=== PATIENT | male | born 1965 | race Caucasian/White ===

== ENCOUNTER → 2017-01-20 | Outpatient (CLI) | payer OTHER ==
[~2017-01-20] MED LIST: ASPI81TA28 PO; CRG25 PO; FURO-85 PO; LSN5 PO; MAGN250T9 PO; POTA99TA PO
[2017-01-20 10:30] LABS: BASO % 0.8 %; BASO ABS # 0.06 K/uL (0-0.2); COMPLETE YES; EOS % 1.6 %; HEMATOCRIT 43.2 % (42-52); IG% 0.5 %; LYMPH % 33.4 %; LYMPH ABS # 2.45 K/uL (1.2-3.4); MEAN CELL VOLUME 98.4 fL (80-100); MEAN CORPUSCULAR HEMOGLOBIN 34.9 pg (25-34); MEAN CORPUSCULAR HGB CONC 35.4 g/dl (32-36); MEAN PLATELET VOLUME 9.6 fL (7.4-10.4); NEUT % 53.7 %; PLATELET COUNT 175 K/uL (130-400); RED BLOOD COUNT 4.39 M/uL (4.7-6.1); WHITE BLOOD COUNT 7.33 K/uL (4.8-10.8)
[2017-01-20 10:37] LABS: BLOOD UREA NITROGEN 8 mg/dl (7-18); BUN/CREATININE RATIO 10.3 (10-20); CARBON DIOXIDE 27 mmol/L (21-32); CHLORIDE 103 mmol/L (98-107); CHOLESTEROL 200 mg/dl (0-200); CREATININE 0.79 mg/dl (0.60-1.40); GLUCOSE 99 mg/dl (70-99); SODIUM 135 mmol/L (136-145); TRIGLYCERIDES 98 mg/dl (0-150); VERY LOW DENSITY LIPOPROT CALC 20 mg/dl
[2017-01-20 10:40] LABS: HDL CHOLESTEROL 66 mg/dl; LDL CHOLESTEROL CALCULATED 114 mg/dl
== END | disposition home or self-care (01) ==
LOC: C.LAB1850 09:19
PROVIDERS: ATTEND Physician Assistant
DX: I50.22 Chronic systolic (congestive) heart failure (principal); I42.9 Cardiomyopathy, unspecified

== ENCOUNTER 2019-05-28 06:58 | Observation (INO) ==
[2019-05-28] MEDS ORDERED: ALBUT/IPRATROP 3MG/0.5MG NEB 3 ML VIAL INH STA (07:08)
[2019-05-28] MEDS ORDERED: FUROSEMIDE 40 MG/4 ML VIAL IV STA (07:08)
--- NOTE | 2019-05-28 07:10 | Emergency Department Note ---
Entered by [id number] acting as a scribe for Carlito Kat DO History of Present Illness General Chief complaint: Shortness of Breath/Dyspnea Stated complaint: breathing diff. Time Seen by Provider: 05/28/19 07:00 Source: patient History of Present Illness Onset (ago): hour(s) (6) Location: chest Pain Consistency: + intermittent Quality: + other (shortness of breath) Exacerbated By: + other (lying down) The patient is a 53 year old male who presents to the Emergency Room with complaints of intermittent shortness of breath beginning 6 hours ago. The patie nt reports the shortness of breath worsening whenever he lies down. The patient reports similar symptoms a few years ago. He notes a history of congestive heart failure and a MD. He notes he is a current smoker. Home Medications Home Medications Medication Instructions Recorded Confirmed Type aspirin 81 mg tablet,delayed 81 mg PO DAILY 01/24/19 05/28/19 History release carvedilol 25 mg tablet 25 mg PO BID 01/24/19 05/28/19 History diphenhydramine HCl 25 mg capsule 25 mg PO Q8H PRN 01/24/19 05/28/19 History furosemide 40 mg tablet 40 mg PO DAILY 01/24/19 05/28/19 History lisinopril 40 mg tablet 40 mg PO DAILY #90 tab 01/24/19 05/28/19 Rx magnesium 250 mg tablet 250 mg PO DAILY 01/24/19 05/28/19 History potassium gluconate 595 mg (99 mg) 595 mg PO DAILY tab 01/24/19 05/28/19 History tablet Allergies Allergy/AdvReac Type Severity Reaction Status Date / Time No Known Allergies Allergy Unverified 05/28/19 07:46 Past Med/Surg History Medical History Acute systolic congestive heart failure, NYHA class 4 CHF (congestive heart failure) (Chronic) Heart valve malfunction (Chronic) Hypotension Surgical History No pertinent past surgical history Family History Other No pertinent family history Social History Preferred Language: Azeri Communication Ability: Effective Inhalation Therapy Aides Teacher Required: No Beliefs That Will Affect Care: None Current Living Situation: Alone Other Information That Helps Us Care for You: No Feels Safe at Home: Yes Safety Concerns: Feels Safe At This Time Smoking Status: Current every day smoker Tobacco Type: cigarettes ; Cigarettes Per Day: 20 ; Do You Dip or Chew Tobacco: No ; Hx Alcohol Use: No Hx Substance Use: No Review of Systems See HPI for pertinent positives & negatives. and A total of 10 systems reviewed and were otherwise negative Physical Exam Vital Signs Vital Signs - 24 hr 05/28/19 07:00 05/28/19 07:01 05/28/19 07:13 Temperature 36.5 C Temperature Source Oral Pulse Rate 82 Pulse Rate [Left Finger] Respiratory Rate 20 Respiratory Effort / Characteristics Non-Labored Non-Labored Respiratory Depth Normal Normal Respiratory Pattern Regular Blood Pressure 141/88 H Blood Pressure [Left Arm] Blood Pressure [Right Arm] Blood Pressure Mean 105 Blood Pressure Mean [Left Arm] Blood Pressure Mean [Right Arm] Pulse Oximetry 97 Oxygen Delivery Method Room Air Room Air Room Air Sepsis Recent Fever Within 48 Hours No Sepsis Action Taken by Nursing No Action Required 05/28/19 07:25 05/28/19 08:06 05/28/19 08:29 Temperature Temperature Source Pulse Rate Pulse Rate [Left Finger] 81 82 88 Respiratory Rate 16 18 20 Respiratory Effort / Characteristics Non-Labored Spontaneous Non-Labored Non-Labored Respiratory Depth Normal Normal Respiratory Pattern Blood Pressure Blood Pressure [Left Arm] 141/82 H Blood Pressure [Right Arm] 130/81 Blood Pressure Mean Blood Pressure Mean [Left Arm] 101 Blood Pressure Mean [Right Arm] 97 Pulse Oximetry 99 95 Oxygen Delivery Method Room Air Room Air Room Air Sepsis Recent Fever Within 48 Hours Sepsis Action Taken by Nursing 05/28/19 09:13 Temperature Temperature Source Pulse Rate Pulse Rate [Left Finger] 82 Respiratory Rate 20 Respiratory Effort / Characteristics Non-Labored Respiratory Depth Normal Respiratory Pattern Blood Pressure Blood Pressure [Left Arm] 130/82 Blood Pressure [Right Arm] Blood Pressure Mean Blood Pressure Mean [Left Arm] 98 Blood Pressure Mean [Right Arm] Pulse Oximetry 96 Oxygen Delivery Method Room Air Sepsis Recent Fever Within 48 Hours Sepsis Action Taken by Nursing CONSTITUTIONAL/VITAL SIGNS: Reviewed / noted above. GENERAL: Non-toxic in appearance. INTEGUMENTARY: Warm, dry, and [place]. HEAD: Normocephalic. EYES: without scleral icterus or trauma. ENT/OROPHARYNX: clear and moist. LYMPHADENOPATHY/NECK: Is supple without lymphadenopathy or meningismus. RESPIRATORY: Lungs clear and equal. CARDIOVASCULAR: Regular rate and rhythm. GI/ABDOMEN: Soft and nontender. No organomegaly or pulsatile mass. No rebound or guarding. Normal bowel sounds. EXTREMITIES: Warm and well perfused. BACK: No CVA tenderness. NEUROLOGICAL: Intact without focal deficits. PSYCHIATRIC: normal affect. MUSCULOSKELETAL: Normally developed with good muscle tone. Course Course 0700: Past medical records reviewed. The patient was evaluated in room B12B. A complete history and physical exam was performed. 0830: Upon reevaluation, the patient is resting more comfortably. I discussed findings and results with the patient. He verbalized agreement of the treatment plan. I reviewed the patient's case with Dr. Lozano - [facility] Hospitalist. She will evaluate the patient for further management. Administered Medications Ioversol (Optiray 320 125ml) 120 ml IV ONCE PRN PRN Reason: Interaction Checking Stop: 06/01/19 08:20 Last Admin: 05/28/19 08:22 Dose: 120 ml Documented by: [id number] Discontinued Medications Albuterol (Duoneb) 3 ml INH NOW STA Stop: 05/28/19 07:09 Last Admin: 05/28/19 07:25 Dose: 3 ml Documented by: [id number] Aspirin (Aspirin) 324 mg PO NOW STA Stop: 05/28/19 07:53 Last Admin: 05/28/19 08:04 Dose: 324 mg Documented by: [id number] Enoxaparin Sodium (Lovenox) 70 mg SQ TODAY@0900 ONE Stop: 05/28/19 09:01 Last Admin: 05/28/19 09:14 Dose: 70 mg Documented by: [id number] Furosemide (Lasix) 40 mg IV NOW STA Stop: 05/28/19 07:09 Last Admin: 05/28/19 07:23 Dose: 40 mg Documented by: [id number] Medical Decision Making Differential Diagnosis Differential diagnoses includes but is not limited to pneumonia, bronchitis, COPD/Asthma exacerbation, pneumothorax, pulmonary embolism, congestive heart failure, acute coronary syndrome Medical Records Attestation: I reviewed the patient's medical records. Home Medications Current Medication List: was personally reviewed by me Laboratory Data Attestation: I reviewed the patient's lab results. Result diagrams: 05/28/19 07:15 05/28/19 07:15 Lab Results 05/28/19 05/28/19 05/28/19 Range/Units 07:15 07:15 07:15 WBC 8.49 (4.8-10.8) K/uL RBC 4.74 (4.7-6.1) M/uL Hgb 17.0 (14.0-18.0) g/dL Hct 47.1 (42-52) % MCV 99.4 (80-100) fL MCH 35.9 H (25-34) pg MCHC 36.1 H (32-36) g/dL RDW Std Deviation 46.8 H (36.4-46.3) fL RDW Coeff of Britney 12.9 (11.5-14.5) % Plt Count 176 (130-400) K/uL MPV 9.4 (7.4-10.4) fL Immature Gran % (Auto) 0.5 % Neut % (Auto) 73.0 % Lymph % (Auto) 16.5 % [place] % (Auto) 8.1 % Eos % (Auto) 1.1 % Baso % (Auto) 0.8 % Immature Gran # (Auto) 0.04 H (0.00-0.02) K/uL Neut # (Auto) 6.20 (1.4-6.5) K/uL Lymph # (Auto) 1.40 (1.2-3.4) K/uL [place] # (Auto) 0.69 H (0.11-0.59) K/uL Eos # (Auto) 0.09 (0-0.5) K/uL Baso # (Auto) 0.07 (0-0.2) K/uL PT 10.3 (9.0-12.0) Seconds INR 1.0 (0.9-1.1) APTT 25.2 (21.0-31.0) Seconds PTT Ratio 0.9 D-Dimer 940 H* (0-500) ug/L FEU Sodium 135 L (136-145) mmol/L Potassium 4.7 (3.5-5.1) mmol/L Chloride 104 (98-107) mmol/L Carbon Dioxide 24 (21-32) mmol/L Anion Gap 7.0 (3-11) BUN 16 (7-18) mg/dl Creatinine 0.88 (0.6-1.4) mg/dl Est Cr Clr Drug Dosing 87.6 ml/min Est GFR ( Amer) 113.7 Est GFR (Non-Af Amer) 98.1 BUN/Creatinine Ratio 18.4 (10-20) Glucose 123 H (70-99) mg/dl Calcium 9.0 (8.5-10.1) mg/dl Total Bilirubin 0.4 (0.2-1) mg/dl AST 38 H (15-37) U/L ALT 48 (12-78) U/L Alkaline Phosphatase 74 (45-117) U/L Troponin I 0.067 H* (0-0.045) ng/ml NT-Pro-B Natriuret Pep 176 (0-900) pg/ml Total Protein 6.6 (6.4-8.2) gm/dl Albumin 3.6 (3.4-5.0) gm/dl Globulin 3.0 (2.5-4.0) gm/dl Albumin/Globulin Ratio 1.2 (0.9-2) Urine Color Urine Appearance (Clear) Urine pH (4.5-7.5) Ur Specific [place] (1.000-1.030) Urine Protein (Negative) Urine Glucose (UA) (Negative) Urine Ketones (Negative) Urine Blood (Negative) Urine Nitrite (Negative) Urine Bilirubin (Negative) Urine Urobilinogen (Negative) Ur Leukocyte Esterase (Negative) 05/28/19 05/28/19 Range/Units 07:15 08:05 WBC (4.8-10.8) K/uL RBC (4.7-6.1) M/uL Hgb (14.0-18.0) g/dL Hct (42-52) % MCV (80-100) fL MCH (25-34) pg MCHC (32-36) g/dL RDW Std Deviation (36.4-46.3) fL RDW Coeff of Britney (11.5-14.5) % Plt Count (130-400) K/uL MPV (7.4-10.4) fL Immature Gran % (Auto) % Neut % (Auto) % Lymph % (Auto) % [place] % (Auto) % Eos % (Auto) % Baso % (Auto) % Immature Gran # (Auto) (0.00-0.02) K/uL Neut # (Auto) (1.4-6.5) K/uL Lymph # (Auto) (1.2-3.4) K/uL [place] # (Auto) (0.11-0.59) K/uL Eos # (Auto) (0-0.5) K/uL Baso # (Auto) (0-0.2) K/uL PT (9.0-12.0) Seconds INR (0.9-1.1) APTT (21.0-31.0) Seconds PTT Ratio D-Dimer (0-500) ug/L FEU Sodium (136-145) mmol/L Potassium (3.5-5.1) mmol/L Chloride (98-107) mmol/L Carbon Dioxide (21-32) mmol/L Anion Gap (3-11) BUN (7-18) mg/dl Creatinine (0.6-1.4) mg/dl Est Cr Clr Drug Dosing ml/min Est GFR ( Amer) Est GFR (Non-Af Amer) BUN/Creatinine Ratio (10-20) Glucose (70-99) mg/dl Calcium (8.5-10.1) mg/dl Total Bilirubin (0.2-1) mg/dl AST (15-37) U/L ALT (12-78) U/L Alkaline Phosphatase (45-117) U/L Troponin I Cancelled (0-0.045) ng/ml NT-Pro-B Natriuret Pep (0-900) pg/ml Total Protein (6.4-8.2) gm/dl Albumin (3.4-5.0) gm/dl Globulin (2.5-4.0) gm/dl Albumin/Globulin Ratio (0.9-2) Urine Color Yellow Urine Appearance Clear (Clear) Urine pH 5.5 (4.5-7.5) Ur Specific [place] 1.010 (1.000-1.030) Urine Protein Negative (Negative) Urine Glucose (UA) Negative (Negative) Urine Ketones Negative (Negative) Urine Blood Negative (Negative) Urine Nitrite Negative (Negative) Urine Bilirubin Negative (Negative) Urine Urobilinogen Negative (Negative) Ur Leukocyte Esterase Negative (Negative) Imaging Data Radiologist's Impression: Radiology results as stated below per my review and the radiologist's interpretation: XR chest 1V portable CLINICAL HISTORY: 53 years-old Male presenting with Dyspnea. TECHNIQUE: Portable upright AP view of the chest was obtained. COMPARISON: 07/20/2015. FINDINGS: Cardiomediastinal silhouette normal. No focal opacity. No large effusion or pneumothorax. Degenerative changes of the thoracic spine. Upper abdomen normal. IMPRESSION: 1. No acute cardiopulmonary disease. ACT 112: Negative or not required by law. Electronically signed by: Walt Jameson M.D. 05/28/2019 7:[address] angio chest PE protocol CLINICAL HISTORY: 53 years-old Male presenting with difficulty breathing, orthopnea. TECHNIQUE: Multidetector CT angiography of the chest was performed after administration of intravenous contrast. 3-D volumetric and/or maximum intensity projection (MIP) images were subsequently reconstructed for review. IV contrast: 120 mL of Optiray 320. One or more dose lowering techniques were used consistent with the principles of ALARA (as low as reasonably achievable), including automatic exposure control, mA or kV adjustment to individual patient size, and/or use of iterative reconstruction. COMPARISON: 06/21/2015. CT DOSE (mGy.cm): The estimated cumulative dose is 259.70 mGy.cm. FINDINGS: Day Care Supervisor topogram: Unremarkable. Pulmonary vasculature: The study is suboptimal for the assessment of the pulmonary vascular tree secondary to respiratory motion artifact. No filling defect within the pulmonary arteries to suggest embolus. Main pulmonary artery is not enlarged. No flattening of the interventricular septum. No intracardiac filling defect. No reflux of contrast into the hepatic veins. Remaining chest: Soft tissues: Normal thyroid and thoracic inlet. Gynecomastia. No axillary, supraclavicular, mediastinal, or hilar lymphadenopathy. Mild atherosclerosis of the aorta. Normal heart size. Trace coronary artery calcification. No pericardial or pleural effusion. Upper abdomen normal. Lungs and airways: No pneumothorax. Central airways patent. Pulmonary arteries enlarged relative to adjacent bronchi. No interlobular septal thickening. Minimal dependent changes likely atelectasis. No other focal nodule or infiltrate. Musculoskeletal: Degenerative changes of the spine. IMPRESSION: 1. No evidence of pulmonary embolus. 2. Trace coronary artery calcification. 3. Mild volume overload. No advanced congestive change or pulmonary edema. 4. Minimal atelectasis. ACT 112: Negative or not required by law. Electronically signed by: Walt Jameson M.D. 05/28/2019 8:42 AM ECG Data Attestation: I personally reviewed and interpreted this ECG as follows: Indication: + SOB/dyspnea Rate (beats per minute): 77 Rhythm: + normal sinus ECG ST segments: no ST elevation ECG Findings: no PVCs Comparison ECG Date: from (06/22/15) Change: the following changes noted (TWI in AVL is new) Blood Pressure Blood Pressure Findings: Elevated blood pressure Blood Pressure Disposition: further management by hospitalist MDM Narrative This is a 53-year-old male who presents to the ED with a chief complaint of shortness of breath with recumbency. The patient states that his symptoms started around 1 AM today while he sleeping. He states that he had similar symptoms once before and was diagnosed with congestive heart failure. He is a smoker. He denies any chest pains. No recent illness or cough. His initial blood pressure was 140/88. Pulse ox is 96% on room air and his heart rate is 78. His twelve-lead EKG shows a normal sinus rhythm at a rate of 77. There is a new T wave inversion in aVL compared to a previous EKG from 2016. The patient's chest x-ray was negative for acute disease. A CT scan of the chest is negative for PE. CBC is normal. D-dimer was elevated at 940 and troponin is elevated at 0.067. Complete metabolic panel was unremarkable and urine did not show infection. The patient was given IV Lasix, DuoNeb treatment, aspirin p.o. as well as Lovenox 1 mg/kg subcu. He will be seen by the hospitalist for further inpatient evaluation and care. Impression & Plan Non-ST elevation MD (NSTEMI), Dyspnea Discharge Plan Visit Data Chief Complaint: Shortness of Breath/Dyspnea Stated Complaint: breathing diff. ED Provider: Carlito Kat Discharge Problem: Non-ST elevation MD (NSTEMI), Dyspnea Patient Disposition: Being Evaluated by Hospitalist Forms Stand Alone Forms: My [facility] [employer] Prescriptions Prescriptions: No Action furosemide 40 mg tablet 40 mg PO DAILY RF: 0 carvedilol 25 mg tablet 25 mg PO BID RF: 0 diphenhydramine HCl [Benadryl] 25 mg capsule 25 mg PO Q8H PRN (Reason: Allergy Symptoms) RF: 0 aspirin [Adult Low Dose Aspirin] 81 mg tablet,delayed release (DR/EC) 81 mg PO DAILY RF: 0 magnesium 250 mg tablet 250 mg PO DAILY RF: 0 potassium gluconate 595 mg (99 mg) tablet 595 mg PO DAILY RF: 0 lisinopril 40 mg tablet 40 mg PO DAILY Qty: 90 RF: 1 Referrals Referrals: Manolo Latif MD [Primary Care Provider] - Discharge Problem: Dyspnea Qualifiers: Dyspnea type: unspecified Qualified Code(s): R06.00 - Dyspnea, unspecified The scribe's documentation has been prepared under my direction and personally reviewed by me in its entirety. I confirm that the note above accurately reflects all work, treatment, procedures, and medical decision making performed by me.
[2019-05-28 07:27] LABS: Basophils # (auto) 0.07 K/uL (0-0.2); Basophils % (auto) 0.8 %; Eosinophils # (auto) 0.09 K/uL (0-0.5); Eosinophils % (auto) 1.1 %; Hematocrit (blood only) 47.1 % (42-52); Immature Granulocytes # (auto) 0.04 K/uL (0.00-0.02); Immature Granulocytes % (auto) 0.5 %; Lymphocytes % (auto) 16.5 %; Mean Corpuscular Hemoglobin 35.9 pg (25-34); Mean Corpuscular Hgb Conc 36.1 g/dL (32-36); Mean Corpuscular Volume 99.4 fL (80-100); Mean Platelet Volume 9.4 fL (7.4-10.4); Monocytes # (auto) 0.69 K/uL (0.11-0.59); Monocytes % (auto) 8.1 %; Platelet Count 176 K/uL (130-400); RDW Coefficient of Variation 12.9 % (11.5-14.5); RDW Standard Deviation 46.8 fL (36.4-46.3); Red Blood Count 4.74 M/uL (4.7-6.1); White Blood Count 8.49 K/uL (4.8-10.8)
--- NOTE | 2019-05-28 07:37 | XRay Report ---
XR chest 1V portable CLINICAL HISTORY: 53 years-old Male presenting with Dyspnea. TECHNIQUE: Portable upright AP view of the chest was obtained. COMPARISON: 07/20/2015. FINDINGS: Cardiomediastinal silhouette normal. No focal opacity. No large effusion or pneumothorax. Degenerativ e changes of the thoracic spine. Upper abdomen normal. IMPRESSION: 1. No acute cardiopulmonary disease. ACT 112: Negative or not required by law. Electronically signed by: Walt Jameson M.D. 05/28/2019 7:36 AM
[2019-05-28 07:38] LABS: Partial Thromboplastin Ratio 0.9; Partial Thromboplastin Time 25.2 Seconds (21.0-31.0); Prothrombin Time 10.3 Seconds (9.0-12.0)
[2019-05-28 07:40] LABS: D Dimer 940 ug/L FEU (0-500)
[2019-05-28 07:44] LABS: Albumin Level 3.6 gm/dl (3.4-5.0); BUN Creatinine Ratio 18.4 (10-20); Creatinine Clr Calc Pharmacy 87.6 ml/min; Est GFR (African American) 113.7; Est GFR (Non-African American) 98.1; Potassium 4.7 mmol/L (3.5-5.1)
[2019-05-28 07:50] LABS: Albumin Globulin Ratio 1.2 (0.9-2); Bilirubin,Total 0.4 mg/dl (0.2-1); Total Protein 6.6 gm/dl (6.4-8.2); Troponin I 0.067 ng/ml (0-0.045)
[2019-05-28] MEDS ORDERED: ASPIRIN CHEW 324 MG PO STA (07:52)
[2019-05-28 08:18] LABS: Appearance Urine Clear (Clear); Bilirubin Urine Negative (Negative); Blood Urine Negative (Negative); Color Urine Yellow; Glucose Urine UA Negative (Negative); Ketones Urine Negative (Negative); Leukocyte Esterase Urine Negative (Negative); Nitrite Urine Negative (Negative); Protein Urine Negative (Negative); Urobilinogen Urine Negative (Negative); pH Urine 5.5 (4.5-7.5)
[2019-05-28] MEDS ORDERED: OPTIRAY 320 125ml IV PRN (08:21)
[2019-05-28] MEDS ORDERED: ENOXAPARIN 1 MG/KG SC ONE (08:22)
--- NOTE | 2019-05-28 08:43 | CT Scan Report ---
CT angio chest PE protocol CLINICAL HISTORY: 53 years-old Male presenting with difficulty breathing, orthopnea. TECHNIQUE: Multidetector CT angiography of the chest was performed after administration of intravenou s contrast. 3-D volumetric and/or maximum intensity projection (MIP) images were subsequently reconst ructed for review. IV contrast: 120 mL of Optiray 320. One or more dose lowering techniques were used consistent with the principles of ALARA (as low as reasonably achievable), including automatic expos ure control, mA or kV adjustment to individual patient size, and/or use of iterative reconstruction. COMPARISON: 06/21/2015. CT DOSE (mGy.cm): The estimated cumulative dose is 259.70 mGy.cm. FINDINGS: Solid Tire Finisher topogram: Unremarkable. Pulmonary vasculature: The study is suboptimal for the assessment of the pulmonary vascular tree secondary to respiratory mo tion artifact. No filling defect within the pulmonary arteries to suggest embolus. Main pulmonary art yuri is not enlarged. No flattening of the interventricular septum. No intracardiac filling defect. No reflux of contrast into the hepatic veins. Remaining chest: Soft tissues: Normal thyroid and thoracic inlet. Gynecomastia. No axillary, supraclavicular, mediasti nal, or hilar lymphadenopathy. Mild atherosclerosis of the aorta. Normal heart size. Trace coronary a rtery calcification. No pericardial or pleural effusion. Upper abdomen normal. Lungs and airways: No pneumothorax. Central airways patent. Pulmonary arteries enlarged relative to a djacent bronchi. No interlobular septal thickening. Minimal dependent changes likely atelectasis. No other focal nodule or infiltrate. Musculoskeletal: Degenerative changes of the spine. IMPRESSION: 1. No evidence of pulmonary embolus. 2. Trace coronary artery calcification. 3. Mild volume overload. No advanced congestive change or pulmonary edema. 4. Minimal atelectasis. ACT 112: Negative or not required by law. Electronically signed by: Walt Jameson M.D. 05/28/2019 8:42 AM
[2019-05-28] MEDS ORDERED: ENOXAPARIN 80 MG/0.8 ML SYR SQ ONE (09:00)
--- NOTE | 2019-05-28 09:27 | History & Physical Report ---
Date of Service May 28, 2019 Assessment & Plan (1) Shortness of breath: * Observation to telemetry. Concern for CHF exacerbation in ER, however BNP only 176 and patient 96% on RA. No edema, JVD, or PND. Troponin 0.067, possibly secondary to viral URI. Also could likely be component of anxiety, as patient starting new job today. CTA negative for PE or dissection, no pneumonia, with noted mild pulmonary vascular congestion * Trop Q6 with repeat EKG * ECHO -- previously had EF 25% in 2013, increased to 40-45% Anny 2018. Follows with Dr. Martinez. 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 Hx L ventricular thrombus, had previously been on coumadin (discontinued 2-3 years ago per patient recollection) * Most recent ECHO jun 2018 with EF 40-45% * Repeat ECHO as above * Continue home ASA, TAVO, carvedilol (4) Hypertension: * Chronic. Stable. 116/77 * Continue home lasix 40mg, lisinopril 40mg, carvedilol * Continue to monitor (5) Micturition syncope: * Hx of, per patient, x1. Occurred 4-5 years ago (6) CHF (congestive heart failure): * As above * ECHO pending (7) Current smoker: * Counseled on cessation * He has tried Chantix in the past but only for 2 weeks-he would consider it again for a longer course * Has chronic cough somewhat mildly productive of sputum-recommend pulmonary function testing as an outpatient (8) DVT prophylaxis: * Given Lovenox 70mg SQ in ER -- will not continue, as not suspected to have acute coronary syndrome at this time * Consider chemical ppx tomorrow if he will remain in the hospital Dispo: trend troponin, ECHO pending, discharge pending cardiology follow-up in the morning if no further work-up needed History of Present Illness Chief Complaint: Shortness of Breath Primary Care Provider: Manolo Latif MD 53 year old male with PMH alcoholic cardiomyopathy (non-ischemic, last EF 40- 45% Jun 2017), hx L ventricular apical thrombus, HTN presented to the emergency department after being awoken at 4am with shortness of breath. He states that he was scared initially when attempting to fall asleep for fear that he would not wake up. He denies any increased swelling in his legs, shortness of breath when lying flat, recent weight gain, increased abdominal fullness or tightness of his pants. He denies chest pain with exertion or shortness of breath with inspiration. He states he is able to climb 2 flights of stairs without becoming short of breath. He states he had some chest discomfort in his left chest that may have been from a pulled muscle from dry heaves this morning. He admits he also had diarrhea x 1. He confirms chronic congestion and runny nose, but denies any known seasonal allergies. Denies reflux, palpitations. Denies current alcohol use but continues to smoke, 1ppd. He does also note that he is supposed to start his first day of work at [employer] but was unable to make it secondary to coming into the ER. Family history: Mother passed at age 75, CHF Father- Double bypass and bovine valve replacement Brother -- PR, s/p stent x4 Surgical Hx: None Social Hx: Cigarettes, 1ppd. No alcohol or illicit drug use ER Course: Trop 0.067. EKG NSR with LA enlargement, borderline EKG, 75bpm. Given ASA 324mg PO, Lovenox 70mg SQ, Lasix 40mg IV x 1. BNP 176. Ddimer 940. CXR negative. CTA negative for PE with mild volume overload without overt failure. CBC, BMP without abnormality. Allergies Allergy/AdvReac Type Severity Reaction Status Date / Time No Known Allergies Allergy Unverified 05/28/19 07:46 Home Medications Home Medications Medication Instructions Recorded Confirmed Type aspirin 81 mg tablet,delayed 81 mg PO DAILY 01/24/19 05/28/19 History release carvedilol 25 mg tablet 25 mg PO BID 01/24/19 05/28/19 History diphenhydramine HCl 25 mg capsule 25 mg PO Q8H PRN 01/24/19 05/28/19 History furosemide 40 mg tablet 40 mg PO DAILY 01/24/19 05/28/19 History lisinopril 40 mg tablet 40 mg PO DAILY #90 tab 01/24/19 05/28/19 Rx magnesium 250 mg tablet 250 mg PO DAILY 01/24/19 05/28/19 History potassium gluconate 595 mg (99 mg) 595 mg PO DAILY tab 01/24/19 05/28/19 History tablet Past Med/Surg History Medical History Acute systolic congestive heart failure, NYHA class 4 CHF (congestive heart failure) (Chronic) Current smoker Heart valve malfunction (Chronic) Hypertension Hypotension Micturition syncope Non-ischemic cardiomyopathy Surgical History No pertinent past surgical history Family History (Updated 05/28/19 @ 20:39 by Milena Lozano MD) Mother Heart disease Father Coronary heart disease H/O aortic valve replacement Brother Coronary heart disease Other No pertinent family history Social History Preferred Language: British Communication Ability: Effective Public Relations Representative Required: No Beliefs That Will Affect Care: None Current Living Situation: Alone Other Information That Helps Us Care for You: No Feels Safe at Home: Yes Safety Concerns: Feels Safe At This Time Smoking Status: Current every day smoker Tobacco Type: cigarettes ; Cigarettes Per Day: 20 ; Do You Dip or Chew Tobacco: No ; Hx Alcohol Use: No Hx Substance Use: No Review of Systems Review of Systems: All systems reviewed & are unremarkable except as noted in HPI & below Constitutional: no fever and no chills Eyes: no diplopia and no problem reported Ear, Nose, Mouth, Throat: no sore throat and no dysphagia Respiratory: no dyspnea on exertion and no pain on inspiration Cardiovascular: no chest pain, no palpitations and no edema Gastrointestinal: + diarrhea/loose stools (x1); no abdominal pain, no nausea, no vomiting and no constipation dry heeves Genitourinary: no dysuria and no urinary frequency Musculoskeletal: no back pain and no muscle weakness Integumentary: no rash and no lesions Neurologic: no numbness and no paresthesia Psychiatric: no depression and no panic attacks Endocrine: no fatigue and no polyphagia Hematologic / Lymphatic: no easy bleeding and no night sweats Allergy / Immunological: no cough and no rash Physical Exam Constitutional: WD/WN, vitals as above no acute distress Eyes: + anicteric sclerae and PERRL ENMT: external ear and nose normal, oropharynx normal Neck: trachea midline, no thyromegaly Respiratory: normal respiratory effort, lungs clear to auscultation Auscultation: + diminished lung sounds Cardiovascular: RRR, no murmur, no edema Gastrointestinal (Abdomen): normal bowel sounds, soft, nontender, no hepatosplenomegaly Musculoskeletal: no cyanosis or clubbing, extremities motor strength 5/5 Skin: no rashes, warm and dry Neurologic: PERRL, EOMI, accommodation nl, no face palsy, no dysarthria Psychiatric: Orientation: alert and oriented x 3 Affect: + anxious affect Lymphatic: no cervical or axillary lymphadenopathy Results & Data Vital Signs (Past 12 Hours) Vital Signs Temp Pulse Pulse Resp BP BP BP 05/28/19 09:13 82 20 130/82 05/28/19 08:29 88 20 141/82 H 05/28/19 08:06 82 18 130/81 05/28/19 07:25 81 16 05/28/19 07:00 36.5 C 82 20 141/88 H Pulse Ox 05/28/19 09:13 96 05/28/19 08:29 95 05/28/19 08:06 05/28/19 07:25 99 05/28/19 07:00 97 Laboratory Results 05/28/19 05/28/19 05/28/19 Range/Units 12:47 08:05 07:15 WBC (4.8-10.8) K/uL RBC (4.7-6.1) M/uL Hgb (14.0-18.0) g/dL Hct (42-52) % MCV (80-100) fL MCH (25-34) pg MCHC (32-36) g/dL RDW Std Deviation (36.4-46.3) fL RDW Coeff of Britney (11.5-14.5) % Plt Count (130-400) K/uL MPV (7.4-10.4) fL Immature Gran % (Auto) % Neut % (Auto) % Lymph % (Auto) % [place] % (Auto) % Eos % (Auto) % Baso % (Auto) % Immature Gran # (Auto) (0.00-0.02) K/uL Neut # (Auto) (1.4-6.5) K/uL Lymph # (Auto) (1.2-3.4) K/uL [place] # (Auto) (0.11-0.59) K/uL Eos # (Auto) (0-0.5) K/uL Baso # (Auto) (0-0.2) K/uL PT (9.0-12.0) Seconds INR (0.9-1.1) APTT (21.0-31.0) Seconds PTT Ratio D-Dimer (0-500) ug/L FEU Sodium (136-145) mmol/L Potassium (3.5-5.1) mmol/L Chloride (98-107) mmol/L Carbon Dioxide (21-32) mmol/L Anion Gap (3-11) BUN (7-18) mg/dl Creatinine (0.6-1.4) mg/dl Est Cr Clr Drug Dosing ml/min Est GFR ( Amer) Est GFR (Non-Af Amer) BUN/Creatinine Ratio (10-20) Glucose (70-99) mg/dl Calcium (8.5-10.1) mg/dl Total Bilirubin (0.2-1) mg/dl AST (15-37) U/L ALT (12-78) U/L Alkaline Phosphatase (45-117) U/L Troponin I 0.023 Cancelled (0-0.045) ng/ml NT-Pro-B Natriuret Pep (0-900) pg/ml Total Protein (6.4-8.2) gm/dl Albumin (3.4-5.0) gm/dl Globulin (2.5-4.0) gm/dl Albumin/Globulin Ratio (0.9-2) Urine Color Yellow Urine Appearance Clear (Clear) Urine pH 5.5 (4.5-7.5) Ur Specific [place] 1.010 (1.000-1.030) Urine Protein Negative (Negative) Urine Glucose (UA) Negative (Negative) Urine Ketones Negative (Negative) Urine Blood Negative (Negative) Urine Nitrite Negative (Negative) Urine Bilirubin Negative (Negative) Urine Urobilinogen Negative (Negative) Ur Leukocyte Esterase Negative (Negative) 05/28/19 05/28/19 05/28/19 Range/Units 07:15 07:15 07:15 WBC 8.49 (4.8-10.8) K/uL RBC 4.74 (4.7-6.1) M/uL Hgb 17.0 (14.0-18.0) g/dL Hct 47.1 (42-52) % MCV 99.4 (80-100) fL MCH 35.9 H (25-34) pg MCHC 36.1 H (32-36) g/dL RDW Std Deviation 46.8 H (36.4-46.3) fL RDW Coeff of Britney 12.9 (11.5-14.5) % Plt Count 176 (130-400) K/uL MPV 9.4 (7.4-10.4) fL Immature Gran % (Auto) 0.5 % Neut % (Auto) 73.0 % Lymph % (Auto) 16.5 % [place] % (Auto) 8.1 % Eos % (Auto) 1.1 % Baso % (Auto) 0.8 % Immature Gran # (Auto) 0.04 H (0.00-0.02) K/uL Neut # (Auto) 6.20 (1.4-6.5) K/uL Lymph # (Auto) 1.40 (1.2-3.4) K/uL [place] # (Auto) 0.69 H (0.11-0.59) K/uL Eos # (Auto) 0.09 (0-0.5) K/uL Baso # (Auto) 0.07 (0-0.2) K/uL PT 10.3 (9.0-12.0) Seconds INR 1.0 (0.9-1.1) APTT 25.2 (21.0-31.0) Seconds PTT Ratio 0.9 D-Dimer 940 H* (0-500) ug/L FEU Sodium 135 L (136-145) mmol/L Potassium 4.7 (3.5-5.1) mmol/L Chloride 104 (98-107) mmol/L Carbon Dioxide 24 (21-32) mmol/L Anion Gap 7.0 (3-11) BUN 16 (7-18) mg/dl Creatinine 0.88 (0.6-1.4) mg/dl Est Cr Clr Drug Dosing 87.6 ml/min Est GFR ( Amer) 113.7 Est GFR (Non-Af Amer) 98.1 BUN/Creatinine Ratio 18.4 (10-20) Glucose 123 H (70-99) mg/dl Calcium 9.0 (8.5-10.1) mg/dl Total Bilirubin 0.4 (0.2-1) mg/dl AST 38 H (15-37) U/L ALT 48 (12-78) U/L Alkaline Phosphatase 74 (45-117) U/L Troponin I 0.067 H* (0-0.045) ng/ml NT-Pro-B Natriuret Pep 176 (0-900) pg/ml Total Protein 6.6 (6.4-8.2) gm/dl Albumin 3.6 (3.4-5.0) gm/dl Globulin 3.0 (2.5-4.0) gm/dl Albumin/Globulin Ratio 1.2 (0.9-2) Urine Color Urine Appearance (Clear) Urine pH (4.5-7.5) Ur Specific [place] (1.000-1.030) Urine Protein (Negative) Urine Glucose (UA) (Negative) Urine Ketones (Negative) Urine Blood (Negative) Urine Nitrite (Negative) Urine Bilirubin (Negative) Urine Urobilinogen (Negative) Ur Leukocyte Esterase (Negative) ECG Additional Comments: EKG NSR 75bpm, T wave inversion AVL, V1 and V2 Code Status & VTE Plan Code Status Full code VTE Prophylaxis Plan VTE Prophylaxis will be ordered: Yes Supervising Physician Co-Signing Physician Notes PA Supervision Note: I personally saw and examined the patient. I verified all dorado points and agree with EVERETTE Darby with the following exceptions and/or additions: Patient presented with sudden onset of shortness of breath while lying flat at home. He also reports a coughing fit that resulted in dry heaves and what sounds like musculoskeletal pain in the left side of the chest that is now resolved. He was most concerned that he might have pneumonia. He denies fevers or chills. He has a chronic cough mildly productive of sputum and continues to smoke 1 pack/day. His troponin was mildly elevated in the ER and his ECG had some subtle T wave changes changed from previous in 2016 He has a history of nonischemic cardiomyopathy, HTN History and ROS otherwise as above Vitals reviewed Gen: AAOx3, NAD, thin HEENT: Anicteric sclerae, EOMI, oropharynx clear CV: RRR no mgr nl S1S2, no JVD Pulm: CTAB no wcr Abd: +BS soft NT ND no masses or hernias Ext: No edema, 2+ DP pulses Skin: No rashes, warm/dry Neuro: Full strength throughout 53-year-old male here with history as above who presented with acute shortness of breath which is now resolved. Does not seem likely to have acute exacerbation of chronic systolic CHF, however troponin mildly elevated. Trend troponin, follow symptomatically Cardiology follow-up in the morning Remain on telemetry PG Care Time/CCT Total # of Minutes Spent Total Time Spent with Patient: Total time spent is greater than 50% in coordination of care (as documented) at patient's floor/unit and/or counseling patient:
--- NOTE | 2019-05-28 10:47 | Cardiology Consultation ---
Date of Consultation The patient was seen in the emergency room as he felt like he could not breathe as he was falling asleep.He notes he would start to fall asleep and then wake himself. He denies any recent orthopnea. He denies any increased abdominal distention low or lower extremity edema. He has had no recent weight gain. He denies any recent salt loading. Denies any chest pain chest pressure or chest heaviness with activity. He denies any lightheadedness dizziness presyncope or syncope. He has been taking his medications on a regular basis and has not miss ed any doses. He follows up every [address] Martinez in the office. He feels comfortable here in the emergency room now he notes he was supposed to start a new job today and I do wonder if this is contributing to his anxiety. He is known to have underlying anxiety. Denies any palpitations or fluttering or feeling his heart racing. He has a small amount of postnasal drip but denies recent cough fevers chills or sweats. Unfortunately he continues to smoke about a pack per day. The rest of a complete review of systems otherwise negative May 28, 2019 History of Present Illness Allergies Allergy/AdvReac Type Severity Reaction Status Date / Time No Known Allergies Allergy Unverified 05/28/19 07:46 Home Medications Home Medications Medication Instructions Recorded Confirmed Type aspirin 81 mg tablet,delayed 81 mg PO DAILY 01/24/19 05/28/19 History release carvedilol 25 mg tablet 25 mg PO BID 01/24/19 05/28/19 History diphenhydramine HCl 25 mg capsule 25 mg PO Q8H PRN 01/24/19 05/28/19 History furosemide 40 mg tablet 40 mg PO DAILY 01/24/19 05/28/19 History lisinopril 40 mg tablet 40 mg PO DAILY #90 tab 01/24/19 05/28/19 Rx magnesium 250 mg tablet 250 mg PO DAILY 01/24/19 05/28/19 History potassium gluconate 595 mg (99 mg) 595 mg PO DAILY tab 01/24/19 05/28/19 History tablet Patient History Medical History Acute systolic congestive heart failure, NYHA class 4 CHF (congestive heart failure) (Chronic) Heart valve malfunction (Chronic) Hypotension Surgical History No pertinent past surgical history Family History Other No pertinent family history Social History Preferred Language: Burkinan Communication Ability: Effective Cinema Operator Required: No Beliefs That Will Affect Care: None Current Living Situation: Alone Other Information That Helps Us Care for You: No Feels Safe at Home: Yes Safety Concerns: Feels Safe At This Time Smoking Status: Current every day smoker Tobacco Type: cigarettes ; Cigarettes Per Day: 20 ; Do You Dip or Chew Tobacco: No ; Hx Alcohol Use: No Hx Substance Use: No Results & Data Vital Signs (Past 12 Hours) Vital Signs Temp Pulse Pulse Resp BP BP BP 05/28/19 10:37 80 20 159/99 H 05/28/19 09:13 82 20 130/82 05/28/19 08:29 88 20 141/82 H 05/28/19 08:06 82 18 130/81 05/28/19 07:25 81 16 05/28/19 07:00 36.5 C 82 20 141/88 H Pulse Ox 05/28/19 10:37 98 05/28/19 09:13 96 05/28/19 08:29 95 05/28/19 08:06 05/28/19 07:25 99 05/28/19 07:00 97 He is awake alert oriented x3 he is in no acute distress. HEENT: Moderately reduced carotid upstrokes no evidence of carotid bruits jugular venous pressure did not appear elevated sclerae anicteric his hearing is normal Lungs: Clear to auscultation bilaterally with globally decreased breath sounds no rales rhonchi or wheezing Heart regular rate and rhythm no appreciable murmurs rubs or gallops Abdomen soft and tenderness and a positive bowel sounds Extremities no clubbing cyanosis or edema Psychiatric his affect appeared appropriate. He did appear anxious CTA of his chest no evidence of aortic dissection or pulmonary embolism or pleural effusion or congestive heart failure Laboratory studies were reviewed in detail proBNP is normal Impressions: 1. Shortness of breath while going to bed while planning to start a new job today question all related to anxiety 2. Known nonischemic cardiomyopathy; patient unaware of current ejection fraction; moderately reduced carotid upstrokes; on appropriate medical regiment 3. History of negative cardiac catheterization in the past 4. Hypertension 5. Echo in 2016 suggesting severe pulmonary hypertension and moderate mitral regurgitation I would stop his Lovenox. Clinically he does not appear to be in heart failure he has no lower extremity edema or orthopnea his breath sounds are globally decreased but there is no rhonchi or rails. He has had no weight gain or increased abdominal distention. The fact that his BNP is negative is highly suggestive this is not heart failure. There is no evidence of aortic dissection or pulmonary embolism. I would try to determine the etiology for his Concerns about going to sleep And as noted this may be an anxiety component. Clinically he looks stable. Dr. Martinez will be available tomorrow for further follow-up
[2019-05-28] MEDS ORDERED: ACETAMINOPHEN 325 MG TAB PO PRN (11:28)
[2019-05-28] MEDS ORDERED: MAGNESIUM HYDROXIDE SUSP 30 ML UDC PO PRN (11:28)
[2019-05-28] MEDS ORDERED: ONDANSETRON INJ 2 MG/ML 2 ML VIAL IV PRN (11:28)
[2019-05-28] MEDS ORDERED: ALUMINUM/MAGNESIUM SUSP 30 ML UDC PO PRN (11:28)
[2019-05-28] MEDS ORDERED: NITROGLYCERIN SL 0.4 MG/TAB TAB SL PRN (11:28)
[2019-05-28] MEDS ORDERED: POLYETHYLENE (MIRALAX) 17 GM PACK PO PRN (11:28)
[2019-05-28] MEDS: carvediloL 25 MG TAB PO SCH ×2 (12:10→20:48)
--- NOTE | 2019-05-28 14:26 | Electrocardiogram Report ---
Test Reason : Blood Pressure : / mmHG Vent. Rate : 077 BPM Atrial Rate : 077 BPM P-R Int : 142 ms QRS Dur : 084 ms QT Int : 390 ms P-R-T Axes : 077 056 091 degrees QTc Int : 441 ms Normal sinus rhythm Left atrial enlargement Borderline ECG When compared with ECG of 22-JUN-2015 06:39, No significant change was found Confirmed by Rosalio Bonilla ([id number]) on 05/28/2019 2:26:26 PM Referred By: REFERRED SELF Confirmed By:Rosalio Bonilla
[2019-05-28] MEDS: NICOTINE 14 MG/24 HR PATCH TD SCH (20:47)
[2019-05-29 06:55] LABS: Hematocrit (blood only) 45.5 % (42-52); Hemoglobin 15.8 g/dL (14.0-18.0); Mean Corpuscular Hgb Conc 34.7 g/dL (32-36); Mean Corpuscular Volume 100.9 fL (80-100); Mean Platelet Volume 9.6 fL (7.4-10.4); Platelet Count 151 K/uL (130-400); Red Blood Count 4.51 M/uL (4.7-6.1); White Blood Count 6.72 K/uL (4.8-10.8)
[2019-05-29 07:15] LABS: Estimated Average Glucose 114 mg/dl; Hemoglobin A1C 5.6 % (4.5-5.6)
[2019-05-29 07:33] LABS: Calcium 9.1 mg/dl (8.5-10.1); Creatinine Clr Calc Pharmacy 83.2 ml/min; Est GFR (African American) 112.6; Est GFR (Non-African American) 97.2
[2019-05-29] MEDS: carvediloL 25 MG TAB PO SCH (08:12)
[2019-05-29] MEDS: NICOTINE 14 MG/24 HR PATCH TD SCH (08:14)
[2019-05-29] MEDS ORDERED: ASPIRIN 81 MG ECTAB PO SCH (09:00)
[2019-05-29] MEDS ORDERED: NON-FORMULARY MEDICATION (Potassium Gluconate 595 MG) PO SCH (09:00)
[2019-05-29] MEDS ORDERED: FUROSEMIDE 40 MG TAB PO SCH (09:00)
[2019-05-29] MEDS ORDERED: MAGNESIUM OXIDE 400 MG TAB PO SCH (09:00)
[2019-05-29] MEDS ORDERED: lisinopriL 40 MG TAB PO SCH (09:00)
--- NOTE | 2019-05-29 11:53 | Cardiology Progress Note ---
Date of Service May 29, 2019 Assessment & Plan (1) Dyspnea: 2. Prior NICM 3. Hypertension 4. Minimal troponin elevation 5. Frequent ectopy - PVCs, 1 episode PSVT Patient has been largely asymptomatic since admission. Today feels at baseline. No chest pain at anytime. ECGs unremarkable, LV function preserved and all subsequent troponins negative -- Suspicion that presenting symptoms secondary to ACS is very low and do not feel additional ischemic testing necessary. No evidence of heart failure by exam, labs/imaging. Has had frequent PVCs on telemetry and 1 episode of brief PSVT. Think unlikely prolonged SVT cause of initial symptoms but will consider additional ambulatory monitoring as an outpatient. From a cardiac standpoint OK for discharge today. Can follow-up with cardiology in 3-4 weeks. Continue home beta-joao, TAVO and diuretic. Subjective Feeling well this morning. Up walking around his room. No recurrent dyspnea. No chest pain over last several days. Mild cough has resolved. No additional diarrhea or nausea. Tele reviewed -- sinus, occasional PVCs, brief episodes of PSVT ~10 beats yesterday afternoon -- asymptomatic. Review of Systems Review of Systems: 10 point review of systems was completed and was otherwise negative unless stated in HPI Physical Exam Physical Exam: General: Comfortable, no acute distress Eyes: Sclerae anicteric, extraocular movements intact HENT: Oropharynx clear mucous membranes moist Neck: Normal carotid upstrokes, no bruits. No JVD. Lungs: Clear to auscultation bilaterally, no rhonchi or wheezes Cardiac: Regular rate and rhythm, 2/6 systolic ejection murmur. Frequent ectopy Abdomen: Soft, nontender, nondistended, positive bowel sounds. Neuro: Nonfocal Psych: Alert orient x3, normal affect and mood Extremities/Vascular: -- 2+ radial bilaterally -- No edema Results & Data Vital Signs (Past 12 Hours) Vital Signs Temp Pulse Pulse Resp BP BP Pulse Ox 05/29/19 11:18 97.2 F L 64 18 154/90 H 99 05/29/19 10:18 71 05/29/19 07:08 97.7 F 56 L 20 181/86 H 96 05/29/19 03:10 97.9 F 67 16 166/93 H 96 PG Care Time/CCT Total # of Minutes Spent Total Time Spent with Patient: Total time spent is greater than 50% in coord ination of care (as documented) at patient's floor/unit and/or counseling patient: (1) Dyspnea Dyspnea type: unspecified Qualified Code(s): R06.00 - Dyspnea, unspecified
--- NOTE | 2019-05-29 22:26 | Electrocardiogram Report ---
Test Reason : Blood Pressure : / mmHG Vent. Rate : 066 BPM Atrial Rate : 066 BPM P-R Int : 136 ms QRS Dur : 090 ms QT Int : 430 ms P-R-T Axes : 063 061 094 degrees QTc Int : 450 ms Normal sinus rhythm Minimal voltage criteria for LVH, may be normal variant Borderline ECG When compared with ECG of 28-MAY-2019 07:01, No significant change was found Confirmed by Lan Pinon ([id number]) on 05/29/2019 10:26:01 PM Referred By: REFERRED SELF Confirmed By:Lan Pinon
--- NOTE | 2019-05-31 10:32 | Discharge Summary ---
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 He states that he was scared initially when attempting to fall asleep for fear that he would not wake up. He denies any increased swelling in his legs, shortness of breath when lying flat, recent weight gain, increased abdominal fullness or tightness of his pants. He denies chest pain with exertion or shortness of breath with inspiration. He states he is able to climb 2 flights of stairs without becoming short of breath. He states he had some chest discomfort in his left chest that may have been from a pulled muscle from dry heaves this morning. He admits he also had diarrhea x 1. He confirms chronic congestion and runny nose, but denies any known seasonal allergies. Denies reflux, palpitations. Denies current alcohol use but continues to smoke, 1ppd. He does also note that he is supposed to start his first day of work at [employer] but was unable to make it secondary to coming into the ER. Family history: Mother passed at age 75, CHF Father- Double bypass and bovine valve replacement Brother -- [place], s/p stent x4 Surgical Hx: None Social Hx: Cigarettes, 1ppd. No alcohol or illicit drug use ER Course: Trop 0.067. EKG NSR with LA enlargement, borderline EKG, 75bpm. Given ASA 324mg PO, Lovenox 70mg SQ, Lasix 40mg IV x 1. BNP 176. Ddimer 940. CXR negative. CTA negative for PE with mild volume overload without overt failure. CBC, BMP without abnormality. Admission Exam Per Admitting Provider Constitutional: WD/WN, vitals as above no acute distress Eyes: + anicteric sclerae and PERRL ENMT: external ear and nose normal, oropharynx normal Neck: trachea midline, no thyromegaly Respiratory: normal respiratory effort, lungs clear to auscultation Auscultation: + diminished lung sounds Cardiovascular: RRR, no murmur, no edema Gastrointestinal (Abdomen): normal bowel sounds, soft, nontender, no hepatosplenomegaly Musculoskeletal: no cyanosis or clubbing, extemities motor strength 5/5 Skin: no rashes, warm and dry Neurologic: PERRL, EOMI, accommodation nl, no face palsy, no dysarthria Psychiatric: Orientation: alert and oriented x 3 Affect: + anxious affect Lymphatic: no cervical or axillary lymphadenopathy Principal Diagnosis Shortness of breath Diarrhea Discharge Exam Constitutional WD/WN, vitals as above no acute distress Eyes + anicteric sclerae; pupils not irregular ENMT external ear and nose normal, oropharynx normal Neck trachea midline, no thyromegaly Respiratory normal respiratory effort, lungs clear to auscultation Cardiovascular RRR, no murmur, no edema Gastrointestinal (Abdomen) normal bowel sounds, soft, nontender, no hepatosplenomegaly Musculoskeletal no cyanosis or clubbing, extremities motor strength 5/5 Skin no rashes, warm and dry Neurologic moves all extremities and awake; no focal motor deficits Speech / Cognition: normal speech Motor/Sensory: no tremor and no sensory deficit Psychiatric A+Ox3, euthymic affect Discharge Data Allergies Allergy/AdvReac Type Severity Reaction Status Date / Time No Known Allergies Allergy Unverified 05/28/19 07:46 Consultations 05/28/19 08:29 ED Decision to Admit Stat 05/28/19 11:28 Consult Cardiology Routine Ordered Studies 05/28/19 07:52 CT angio chest PE protocol Stat Hospital Course (1) Shortness of breath: Edilberto Xavier is a 53 year old male smoker observed overnight to [facility] from May 28 to 2019 due to shortness of breath, dry heaving and diarrhea episode. He was reviewed by cardiology and this was not suspected to be cardiac despite very small troponin rise. No EKG changes. Echocardiogram showed improved EF from 55-60% from his prior non- ischemic cardiomyopathy. CTA was negative for pulmonary embolism. Suspect this was due to anxiety due to starting his new job vs. upper respiratory infection. He should follow up with his PCP for ongoing smoking cessation and ongoing allergy symptoms with frequent benadryl use. He should also follow up with his senior health educator in approximately 3-4 weeks. No changes to his cardiac medications were made. Recommend switching your as needed diphenhydramine for something less sedating such as fexofenadine for his chronic rhinitis. Consider nasal sprays if this is not successful. Kind regards, Dr Manolo Juan (2) Elevated troponin: (3) Non-ischemic cardiomyopathy: (4) Hypertension: (5) Micturition syncope: (6) CHF (congestive heart failure): (7) Current smoker: Total Time Total Time Spent Total Time Spent (In Minutes): 40 Total Time Includes: Examination of the Patient, Discharge Planning and Medication Reconciliation Discharge Plan Discharge Items Patient Disposition: Home - Self-Care Reason For Visit: SHORTNESS OF BREATH,CHF Discharge Diagnosis: Shortness of breath Diarrhea Activity: Resume your previous activity Non-emergency contact: Primary Care Provider Call non-emergency contact if: you have any medication questions and your sym ptoms worsen Follow-up/Referrals: Manolo Latif MD [Primary Care Provider] - 06/01/19 10:30 am (Please, follow up at Dr. Manolo Latif' office on June 01 at 10:30 am. *If you need to change this appointment, call the office at [phone].) Diet: Heart Healthy Addtl Attending Provider Instructions: You were admitted overnight to [facility] from May 28 to 2019 due to shortness of breath, dry heaving and diarrhea episode. Suspect this was due to anxiety or viral infection (upper respiratory infection). Heart attack was ruled out at this time and review by your senior health educator recommended no additional workup at this time. Recommend cardiology follow up in approximately 3-4 weeks. No changes to your heart medications were made. Recommend switching your as needed diphenhydramine for something less sedating such as fexofenadine. If this isn't controlling you chronic rhinitis (runny nose) symptoms please follow up with your primary care provider for additional advice. Please follow up with your primary care provider regarding ongoing smoking cessation. Kind regards, Dr Manolo Juan Pending Studies at Discharge: No Stand-Alone Forms: [facility], Smoking Cessation Medications and DC Order Prescriptions: New fexofenadine 180 mg tablet 180 mg PO DAILY PRN (Reason: allergy symptoms) Qty: 90 RF: 0 Continued furosemide 40 mg tablet 40 mg PO DAILY RF: 0 carvedilol 25 mg tablet 25 mg PO BID RF: 0 aspirin [Adult Low Dose Aspirin] 81 mg tablet,delayed release (DR/EC) 81 mg PO DAILY RF: 0 magnesium 250 mg tablet 250 mg PO DAILY RF: 0 potassium gluconate 595 mg (99 mg) tablet 595 mg PO DAILY RF: 0 lisinopril 40 mg tablet 40 mg PO DAILY Qty: 90 RF: 1 Discontinued diphenhydramine HCl [Benadryl] 25 mg capsule 25 mg PO Q8H PRN (Reason: Allergy Symptoms) RF: 0 Discharge Orders: Discharge Order (Routine); Ordered 05/29/19 Ordered By: Manolo Juan Admission Data Admit Date/Time: 05/28/19 09:38 Attending Provider: Manolo Juan Admit Provider: Milena Lozano Primary Care Provider: Manolo Latif Other Providers: Milena Lozano ; Rosalio Bonilla Other Interventions: Discharge Summary Assessment (RN) Last Done: 05/29/19 14:13 DC Date/Time DO NOT enter until pt leaves facility: 05/29/19 17:32
== END 2019-05-29 17:32 | disposition home or self-care (01) ==
LOC: 2S 06:58 → ED 06:58 → SUATTDRO 09:38 → 2S 10:37

== ENCOUNTER 2019-06-09 08:05 | Inpatient (IN) ==
[2019-06-09] MEDS ORDERED: MAGNESIUM SULFATE 1GM / D5W BAG IV ONE ×3 (08:15→08:22)
[2019-06-09] MEDS ORDERED: ETOMIDATE 2 MG/ML 20 ML VIAL IV ONE (08:27)
[2019-06-09] MEDS ORDERED: SODIUM CHLORIDE 0.9% 1000ML 1,000 ML IV ONE (08:27)
[2019-06-09] MEDS ORDERED: dilTIAZem HCL 125 MG in DEXTROSE 5% 100 ML IV SCH (08:30)
--- NOTE | 2019-06-09 08:31 | XRay Report ---
XR chest 1V portable CLINICAL HISTORY: Atypical chest pain COMPARISON STUDY: 05/28/2019 FINDINGS: The cardiac and mediastinal contours are normal. There is no evidence of focal pulmonary co nsolidation. There is no evidence of failure. No pleural effusions are visualized.[ IMPRESSION: No active disease in the chest. ACT 112: Negative or not required by law. Electronically signed by: Quinton Burnham M.D. 06/09/2019 8:30 AM
[2019-06-09] MEDS: MAGNESIUM SULFATE / D5W 1 GM/100 ML BAG IV SCH ×2 (08:37→08:38)
[2019-06-09 08:39] LABS: Basophils # (auto) 0.08 K/uL (0-0.2); Eosinophils # (auto) 0.13 K/uL (0-0.5); Eosinophils % (auto) 1.6 %; Hematocrit (blood only) 46.8 % (42-52); Hemoglobin 16.8 g/dL (14.0-18.0); Immature Granulocytes # (auto) 0.02 K/uL (0.00-0.02); Immature Granulocytes % (auto) 0.2 %; Lymphocytes # (auto) 2.07 K/uL (1.2-3.4); Lymphocytes % (auto) 25.2 %; Mean Corpuscular Hemoglobin 35.2 pg (25-34); Mean Corpuscular Hgb Conc 35.9 g/dL (32-36); Mean Corpuscular Volume 98.1 fL (80-100); Mean Platelet Volume 9.7 fL (7.4-10.4); Monocytes # (auto) 0.97 K/uL (0.11-0.59); Monocytes % (auto) 11.8 %; Neutrophils # (auto) 4.95 K/uL (1.4-6.5); Neutrophils % (auto) 60.2 %; Platelet Count 196 K/uL (130-400); RDW Coefficient of Variation 12.7 % (11.5-14.5); RDW Standard Deviation 46.1 fL (36.4-46.3); Red Blood Count 4.77 M/uL (4.7-6.1); White Blood Count 8.22 K/uL (4.8-10.8)
[2019-06-09 08:56] LABS: Partial Thromboplastin Time 25.9 Seconds (21.0-31.0); Prothrombin Time 9.9 Seconds (9.0-12.0)
[2019-06-09 09:03] LABS: Alanine Aminotransferase 45 U/L (12-78); Albumin Level 3.8 gm/dl (3.4-5.0); Aspartate Aminotransferase 35 U/L (15-37); BUN Creatinine Ratio 14.4 (10-20); Blood Urea Nitrogen 12 mg/dl (7-18); Calcium 8.6 mg/dl (8.5-10.1); Carbon Dioxide 21 mmol/L (21-32); Chloride 101 mmol/L (98-107); Creatinine Clr Calc Pharmacy 92.9 ml/min; Est GFR (African American) 116.4; Est GFR (Non-African American) 100.5; Glucose 106 mg/dl (70-99); Lipase 321 U/L (73-393); Potassium 4.2 mmol/L (3.5-5.1); Sodium 133 mmol/L (136-145)
[2019-06-09 09:06] LABS: Albumin Globulin Ratio 1.3 (0.9-2); Alkaline Phosphatase 66 U/L (45-117); Bilirubin,Total 0.6 mg/dl (0.2-1); Creatine Kinase 132 U/L (39-308); Creatine Kinase MB 1.5 ng/ml (0.5-3.6); Globulin 2.9 gm/dl (2.5-4.0); Total Protein 6.7 gm/dl (6.4-8.2); Troponin I < 0.015 ng/ml (0-0.045)
--- NOTE | 2019-06-09 09:24 | History & Physical Report ---
Date of Service June 09, 2019 Assessment & Plan (1) Paroxysmal atrial fibrillation with RVR: -Admit to tele/PCU -New onset today: pt presented with HR in 160s, and BP of 80/60 now improved with HR down near 100, and BP improved to 126/83. -Pt received 4 mg IV mag, 1L NSS, placed on cardizem gtt and was dc'd in the ER as the pt already converted back into NSR by time I saw the patient in the ER this morning. -Cardiology consulted, Dr. Bla -CHADs score 2 -Trend troponins x2 more sets, initial is negative -Last echo completed on 05/28/2019 showing EF of 55-60%, mild concentric LVH, no need to repeat at this time -EKG reviewed while afib with RVR, review repeat EKG that he is in NSR -Heparin gtt with bolus start now -Continue outpatient medications, consider addition of antiarrhythmic (2) Non-ischemic cardiomyopathy: -Cardiology consulted as above -Encourage smoking cessation, will order nicotine patch -asa 81 mg, carvedilol 25 mg BID, lasix 40 mg PO daily, lisinopril 40 mg daily (3) Hypertension: - Antihypertensives as above (4) Current smoker: - Cessation encouraged, nicotine patch ordered (5) DVT prophylaxis: -heparin gtt CODE: Full code Dispo: From home, dc likely within 1-2 days History of Present Illness Primary Care Provider: Manolo Latif MD This is a 53-year-old male with past medical history of alcoholic cardiomyopathy (nonischemic, last EF 40 to 45% June 2017), left ventricular apical thrombus, HTN, dyspnea, frequent ectopy, PVCs, one episode of PSVT, minimal troponin elevation, who was admitted to the hospital earlier this month from 05/28-05/29. The patient presents this morning as he awoke abruptly with significant shortness of breath and chest tightness as well as palpitations. He had significant difficulty with dyspnea with minimal activities, lightheaded, dizziness with standing. He denies sharp stabbing chest pain and radiation of pain anywhere. He admits to very stressful situation within the past week as he lost his job. Patient previously was supposed to start his first day working at [employer] when he was admitted to the hospital on 05/28, and has just not been called back since by the [employer]. He denies any alcohol use, and smoked his typical 1 pack of cigarettes yesterday. He did not smoke today. Patient was found to be in new onset A. fib with RVR with a heart rate in the 160s, blood pressure = 80/60, was administered 4 mg IV magnesium and started on a Cardizem drip. At this point the patient converted back into NSR, feels well, but has complaints that he is unable to urinate while sitting in bed with a urinal and is requesting to get up and walk to the restroom. Allergies Allergy/AdvReac Type Severity Reaction Status Date / Time No Known Allergies Allergy Unverified 06/09/19 08:43 Home Medications Home Medications Medication Instructions Recorded Confirmed Type carvedilol 25 mg tablet 25 mg PO BID 01/24/19 06/09/19 History furosemide 40 mg tablet 40 mg PO QAM 01/24/19 06/09/19 History magnesium 250 mg tablet 250 mg PO QAM 01/24/19 06/09/19 History potassium gluconate 595 mg (99 mg) 595 mg PO QAM tab 01/24/19 06/09/19 History tablet Xarelto 20 mg PO DAILY 30 Days #30 tab 06/09/19 Rx fexofenadine 180 mg PO QAM 06/09/19 06/09/19 History lisinopril 40 mg PO QAM 06/09/19 06/09/19 History nicotine [Nicoderm CQ] 21 mg TRANSDERMAL QAM #14 ea 06/09/19 Rx Past Med/Surg History Medical History Acute systolic congestive heart failure, NYHA class 4 CHF (congestive heart failure) (Chronic) Current smoker Heart valve malfunction (Chronic) Hypertension Hypotension Micturition syncope Non-ischemic cardiomyopathy Surgical History No pertinent past surgical history Family History Mother Heart disease Father Coronary heart disease H/O aortic valve replacement Brother Coronary heart disease Social History Preferred Language: Slovenian Communication Ability: Effective Stem Mounter Required: No Beliefs That Will Affect Care: None Current Living Situation: Alone Feels Safe at Home: Yes Smoking Status: Current every day smoker Tobacco Type: cigarettes ; Cigarettes Per Day: 20 ; Second Hand Exposure: No ; Hx Alcohol Use: Yes Alcohol type: beer Hx Substance Use: No Review of Systems Review of Systems: Constitutional: No fever, sweats or chills Eyes: No diplopia, no worsening or blurred vision ENT: normal hearing, no trouble swallowing Respiratory: As per HPI, + Significantly short of breath this morning now improved, no cough, sputum Cardiovascular: As per HPI, + palpitations now resolved, no chest pain, tightness Abdomen: No pain, nausea, vomiting, diarrhea or constipation Musculoskeletal: No joint pain, calf pain, swelling Neurologic: No weakness, numbness/tingling, or balance problems Psychiatric: No anxiety or depression Skin: No rash or itch Physical Exam Physical Exam: General: awake, alert, no apparent distress Head: Normocephalic, atraumatic ENT: PERRL, EOMI, no pharyngeal exudate, mucous membranes moist Chest: Clear to auscultation, on room air, no adventitious breath sounds Cardiac: NSR, HR =100, no murmur, no JVD, normal peripheral pulses, good capillary refill Abdominal: NABS x 4 quadrants, soft, nondistended, nontender to palpation, no rebound, guarding or tenderness Extremities: Normal inspection, no peripheral edema or erythema, calfs nontender to palpation Psych: Normal mood and affect Neuro: AAO x 3, strength intact bilaterally and related 5/5, no motor deficits, speech is clear, no peripheral sensory deficits Skin: no rash or erythema Results & Data Vital Signs (Past 12 Hours) Vital Signs Temp Pulse Pulse Resp BP BP Pulse Ox 06/09/19 08:50 103 H 16 126/83 100 06/09/19 08:48 104 H 22 99/61 L 100 06/09/19 08:28 36.5 C 159 H 16 80/61 L 100 Diagnostic Findings XR chest 1V portable CLINICAL HISTORY: Atypical chest pain COMPARISON STUDY: 05/28/2019 FINDINGS: The cardiac and mediastinal contours are normal. There is no evidence of focal pulmonary consolidation. There is no evidence of failure. No pleural effusions are visualized.[ IMPRESSION: No active disease in the chest. ACT 112: Negative or not required by law. Electronically signed by: Quinton Burnham M.D. 06/09/2019 8:30 AM ECG Additional Comments: 09-JUN-2019 08:14:17 [facility]-EDSTAT ROUTINE RETRIEVAL Atrial fibrillation with rapid ventricular response Abnormal QRS-T angle, consider primary T wave abnormality Abnormal ECG When compared with ECG of 29-MAY-2019 06:21, Atrial fibrillation has replaced Sinus rhythm Vent. rate has increased BY 76 BPM 25mm/s 10mm/mV 150Hz 9.0.9 12SL 241 NATALIIA: 10 Unconfirmed Vent. rate 142 BPM AZ interval * ms QRS duration 86 ms QT/QTc 312/479 ms P-R-T axes * 31 96 Code Status & VTE Plan Code Status Full code- discussed with pt at bedside Supervising Physician Co-Signing Physician Notes Patient seen and examined, chart reviewed, case discussed with EVERETTE Bolton and I agree with her assessment and plan as documented above. Briefly, patient is a 53yo C male with history of NICM, tobacco use and HTN presenting with PAF. Initially with elevated HR, hypotension and SOB. Patient was treated with cardizem with return to NSR. During my exam he is afebrile, HD stable, NSR noted on monitor Skin - warm, dry, intact, no rashes/lesions HEENT - NC/AT, PERRL, EOMI, MMM, Neck supple, no JVD Heart - +S1/S2, regular, no m/r/g Lungs - CTA, no rales/rhonchi/wheezes Abd - +BS, soft, NT/ND Ext - no edema Labs and images reviewed. Na = 133 otherwise labs are unremarkable. Troponin = < 0.015 CXR unremarkable EKG confirms return to NSR Assessment/Plan: Patient now in NSR, asymptomatic and doing well -Medically stable for discharge home -Cardiology followup in 2 weeks to be arranged -Xarelto x 1 month supply to be provided in samples. Patient educated about risks and benefits of this medication and voiced understanding. -Remainder of plan as above PG Care Time/CCT Total # of Minutes Spent Total Time Spent with Patient: Total time spent is greater than 50% in coordination of care (as documented) at patient's floor/unit and/or counseling patient: Coding Level of Care Code 46683 Initial Inpt Care Lvl 3 Diagnoses Paroxysmal atrial fibrillation with RVR I48.0 Non-ischemic cardiomyopathy I42.8 Hypertension I10 Current smoker F17.200 DVT prophylaxis Z29.9
--- NOTE | 2019-06-09 09:46 | Emergency Department Note ---
ED Visit Note Pt seen and examined by myself and discussed with Dr. Lara who saw him separately. Please refer to his note for any medical decision making. . Resident Activity Tracking Resident Involvement: Resident Care Provided Care Provided: Adult ED
[2019-06-09] MEDS ORDERED: ACETAMINOPHEN 325 MG TAB PO PRN (09:49)
[2019-06-09] MEDS ORDERED: ONDANSETRON INJ 2 MG/ML 2 ML VIAL IV PRN (09:49)
[2019-06-09] MEDS ORDERED: HEPARIN SODIUM/DEXTROSE 25,000 UNITS/500 ML BAG IV SCH (10:30)
[2019-06-09] MEDS ORDERED: HEPARIN SOD 5,000 UNIT/0.5 ML VIAL ONE (10:36)
--- NOTE | 2019-06-09 11:27 | Cardiology Consultation ---
Date of Consultation June 09, 2019 Assessment & Plan (1) Paroxysmal atrial fibrillation with RVR: He presented with atrial fibrillation rapid ventricular rate. He was symptomatic primarily with breathing difficulty. He did not endorse chest pain to me. The blood pressure was slightly low at the time admission as well. He has not had known atrial fibrillation previously. Given his medical history he certainly is at risk for atrial fibrillation although with normal LV function, normal left atrial size in the absence of mitral regurgitation out expect his overall risk to be somewhat lower for development of atrial fibrillation. He is not appear to have other risk factors other than hypertension. It is possible that alcohol use last evening contributed to his atrial fibrillation this morning. He has a history of alcohol abuse and did endorse drinking several beers last night. I cautioned him regarding the use of alcohol in the future. Now that he is return to sinus rhythm I think he could be safely discharged with outpatient management. It is unclear how often he will have additional episodes. If this is truly holiday heart and perhaps we will not see additional episodes in the absence of more drinking. Do not think he requires a change in his overall medical regimen at this time based on this 1 event. Did have a rapid ventricular response at presentation he may benefit from the addition of diltiazem in the future. This would seem safe given his improved LV function. It would appear that his chads Vasc score is relatively low. This is especially true in light of his improved ejection fraction. However, he did have evidence of aortic plaquing on his recent CT scan which appears to be an independent risk factor. Would advocate sending him home on Xarelto 20 milligrams daily for the time being. His need for anticoagulation or additional therapies for atrial fibrillation can be determined on an outpatient basis. He should stop his aspirin when he begins taking Xarelto (2) Non-ischemic cardiomyopathy: Resolved on most recent echocardiogram. Patient to continue his outpatient medical regimen which consists of lisinopril, carvedilol and daily aspirin (3) Hypertension: Slightly hypertensive at the time of admission likely due to his atrial fibrillation, rapid ventricular response and relative hypovolemia. Currently normotensive. History of Present Illness Reason for Consultation: Atrial fibrillation Requesting Physician: Fely Attending Physician: Manolo Geiger History of Present Illness The patient is a 53-year-old gentleman with a history of a nonischemic cardiomyopathy, possibly related to alcohol abuse who was woken approximately 5 a.m. this morning with dyspnea. Patient states that his breathing was difficult. He was not improved with sitting up. He had some very mild dizziness as well. He did not endorse symptoms of chest discomfort or sense of palpitation. However, his symptoms were persistent and fairly severe so he presented to the emergency room for evaluation. He was discovered to be in atrial fibrillation with rapid ventricular rate. He also had an element of mild hypotension. Patient was given magnesium and started on diltiazem infusion. Eventually he returned to a sinus rhythm. His symptoms seemed to resolve shortly afterwards. Was admitted to the hospital approximately 1 week ago for symptoms dyspnea. This would occur when lying down at nighttime. This was thought to be related to stress. The patient admits that he is under lot of stress recently due to some changes in his job. He states that he has been eating out a lot and last night he had several beers before going to bed. He says that generally speaking he only has 1 or 2 beers but last night he had more than usual. He states that he does not drink heavily frequently. Since discharge last week he has otherwise felt well. Did not report any constitutional symptoms such as fevers or chills. He has not been aware of any palpitations at other times. He has not had dizziness, lightheadedness or syncope. He has not had any form of chest discomfort. He did not report orthopnea or paroxysmal nocturnal dyspnea. Allergies Allergy/AdvReac Type Severity Reaction Status Date / Time No Known Allergies Allergy Unverified 06/09/19 08:43 Home Medications Home Medications Medication Instructions Recorded Confirmed Type aspirin 81 mg tablet,delayed 81 mg PO QAM 01/24/19 06/09/19 History release carvedilol 25 mg tablet 25 mg PO BID 01/24/19 06/09/19 History furosemide 40 mg tablet 40 mg PO QAM 01/24/19 06/09/19 History magnesium 250 mg tablet 250 mg PO QAM 01/24/19 06/09/19 History potassium gluconate 595 mg (99 mg) 595 mg PO QAM tab 01/24/19 06/09/19 History tablet fexofenadine 180 mg PO QAM 06/09/19 06/09/19 History lisinopril 40 mg PO QAM 06/09/19 06/09/19 History rivaroxaban 20 mg tablet 20 mg PO DAILY 06/09/19 History Patient History Medical History Acute systolic congestive heart failure, NYHA class 4 CHF (congestive heart failure) (Chronic) Current smoker Heart valve malfunction (Chronic) Hypertension Hypotension Micturition syncope Non-ischemic cardiomyopathy Surgical History No pertinent past surgical history Family History Mother Heart disease Father Coronary heart disease H/O aortic valve replacement Brother Coronary heart disease Social History Preferred Language: [place] Communication Ability: Effective 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 Physical Exam Physical Exam: The patient is alert and oriented. Mood and affect appeared normal. He answered all questions appropriately. HEENT: Pupils are equal and reactive to light and accommodation. Extraocular movements are intact. The sclerae are anicteric. Neuro: Cranial nerves intact Neck: Patient's neck is supple. He has palpable carotid pulses bilaterally without bruits on auscultation. There is no evidence of jugular venous distention. The thyroid is not enlarged. Lungs: Clear to auscultation bilaterally. He has good air movement without use of accessory muscles. No rales wheezes or rhonchi. Cardiac: Heart demonstrates a regular rate and rhythm. Normal S1 and S2. No murmurs on examination. Pulses: The patient has palpable radial pulses bilaterally that are equal in intensity Extremities: There was no evidence of hypoperfusion. There is no cyanosis or c lubbing. There is no edema. Skin: I did not appreciate any rashes on examination today. Results & Data Vital Signs (Past 12 Hours) Vital Signs Temp Pulse Pulse Resp BP BP Pulse Ox 06/09/19 10:56 78 18 120/65 99 06/09/19 10:08 81 18 111/69 98 06/09/19 08:50 103 H 16 126/83 100 06/09/19 08:48 104 H 22 99/61 L 100 06/09/19 08:28 36.5 C 159 H 16 80/61 L 100 Laboratory Results Abnormal Lab Results 06/09/19 06/09/19 06/09/19 08:02 08:02 08:02 WBC 8.22 RBC 4.77 Hgb 16.8 Hct 46.8 MCV 98.1 MCH 35.2 H MCHC 35.9 RDW Std Deviation 46.1 RDW Coeff of Britney 12.7 Plt Count 196 MPV 9.7 Immature Gran % (Auto) 0.2 Neut % (Auto) 60.2 Lymph % (Auto) 25.2 Routt % (Auto) 11.8 Eos % (Auto) 1.6 Baso % (Auto) 1.0 Immature Gran # (Auto) 0.02 Neut # (Auto) 4.95 Lymph # (Auto) 2.07 Routt # (Auto) 0.97 H Eos # (Auto) 0.13 Baso # (Auto) 0.08 PT 9.9 INR 1.0 APTT 25.9 PTT Ratio 1.0 Sodium 133 L Potassium 4.2 Chloride 101 Carbon Dioxide 21 Anion Gap 11.0 BUN 12 Creatinine 0.83 Est Cr Clr Drug Dosing 92.9 Est GFR ( Amer) 116.4 Est GFR (Non-Af Amer) 100.5 BUN/Creatinine Ratio 14.4 Glucose 106 H Calcium 8.6 Total Bilirubin 0.6 AST 35 ALT 45 Alkaline Phosphatase 66 Total Creatine Kinase 132 CK-MB (CK-2) 1.5 CK/CKMB % Calc 1.1 Troponin I < 0.015 Total Protein 6.7 Albumin 3.8 Globulin 2.9 Albumin/Globulin Ratio 1.3 Lipase 321 Diagnostic Findings Chest x-ray obtained today did not reveal any acute cardiopulmonary disease ECG Additional Comments: Initial EKG demonstrated atrial fibrillation rapid ventricular response. Some aberrant conduction. Subsequent EKG demonstrated normal sinus rhythm. PG Care Time/CCT Total # of Minutes Spent Total Time Spent with Patient: Total time spent is greater than 50% in coordination of care (as documented) at patient's floor/unit and/or counseling patient: Coding Level of Care Code 49214 Office/OBS Consult Lvl 4 Diagnoses Paroxysmal atrial fibrillation with RVR I48.0 Non-ischemic cardiomyopathy I42.8 Hypertension I10
--- NOTE | 2019-06-09 11:56 | Discharge Summary ---
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 The patient presents this morning as he awoke abruptly with significant shortness of breath and chest tightness as well as palpitations. He had significant difficulty with dyspnea with minimal activities, lightheaded, dizziness with standing. He denies sharp stabbing chest pain and radiation of p ain anywhere. He admits to very stressful situation within the past week as he lost his job. Patient previously was supposed to start his first day working at [employer] when he was admitted to the hospital on 05/28, and has just not been called back since by the company. He denies any alcohol use, and smoked his typical 1 pack of cigarettes yesterday. He did not smoke today. Patient was found to be in new onset A. fib with RVR with a heart rate in the 160s, blood pressure = 80/60, was administered 4 mg IV magnesium and started on a Cardizem drip. At this point the patient converted back into NSR, feels well, but has complaints that he is unable to urinate while sitting in bed with a urinal and is requesting to get up and walk to the restroom. Principal Diagnosis New onset Afib with RVR Discharge Exam Same as admitting HPI as done by myself. Discharge Data Allergies Allergy/AdvReac Type Severity Reaction Status Date / Time No Known Allergies Allergy Unverified 06/09/19 08:43 Consultations 06/09/19 08:36 Consult Cardiology Stat 06/09/19 08:51 ED Decision to Admit Stat 06/09/19 09:49 Consult Cardiology Routine Consult Case Management - Discharge Planning Routine Hospital Course (1) Paroxysmal atrial fibrillation with RVR: -Admit to tele/PCU -New onset today: pt presented with HR in 160s, and BP of 80/60 now improved with HR down near 100, and BP improved to 126/83. -Pt received 4 mg IV mag, 1L NSS, placed on cardizem gtt and was dc'd in the ER as the pt already converted back into NSR by time I saw the patient in the ER this morning. -Cardiology consulted, Dr. Bal - discussed over the phone that the pt should be placed on anticoagulation. - start him on xarelto 20 mg daily, samples will be provided to the patient by the cardiology office today, pt will need to drive/walk over there after discharge here. Rx was sent to [facility] for med rec. -Within 30 days pt will have f/u with cardiology and then will decide upon further anticoagulation needs. -CHADs score 2 -Initial troponin negative, no further needs for testing -Last echo completed on 05/28/2019 showing EF of 55-60%, mild concentric LVH, no need to repeat at this time -EKG reviewed while afib with RVR, review repeat EKG that he is in NSR - Was administered heparin gtt during his short inpatient stay -Continue outpatient medications, consider addition of antiarrhythmic (2) Non-ischemic cardiomyopathy: -Cardiology consulted as above -Encourage smoking cessation, will order nicotine patch- sent RX home - STOP asa 81 mg since starting xarelto - Continue carvedilol 25 mg BID, lasix 40 mg PO daily, lisinopril 40 mg daily (3) Hypertension: - Antihypertensives as above (4) Current smoker: - Cessation encouraged, nicotine patch ordered (5) Alcohol use: - Pt encouraged to quit drinking, as this likely could have potentiated Afib with RVR this morning since he had several beers last night. (6) DVT prophylaxis: -heparin gtt CODE: Full code Dispo: From home, dc today. Total Time Total Time Spent Total Time Spent (In Minutes): 62 minutes Discharge Plan Discharge Items Patient Disposition: Home - Self-Care Reason For Visit: AFIB WITH RVR Discharge Diagnosis: Afib with RVR Condition on Discharge: Good Goals: Stop drinking alcohol and stop smoking. Activity: Resume your previous activity Lifting: Gradually increase as tolerated Bathing: No limitations Exercise/Sports: Gradually increase as tolerated Driving/Machine Use: No limitations Weightbearing: Full weightbearing Non-emergency contact: Primary Care Provider Call non-emergency contact if: you have any medication questions and your symptoms worsen Follow-up/Referrals: Manolo Latif MD [Primary Care Provider] - Diet: Heart Healthy Add Attending Provider Instructions: You were admitted to [facility] due to shortness of breath and palpitations and diagnosed with Atrial fibrillation with RVR . During your stay here you were treated with supportive care, medications including a cardizem, and your symptoms improved. Imaging studies which were completed include EKG, and were abnormal initially, showing the rapid heart rate and irregularity of your heart. This improved back to normal after being on cardizem drip. Medications: Continue taking you medications as prescribed You are being started on a blood thinner, Xarelto 20 mg daily. A 30 day supply will be provided to you by the cardiology office due to insurance limitations. After 30 days, you may be given an additional 30 day supply by the cardiology office. STOP taking aspirin once you start Xarelto. Appointments: Follow up with PCP within 1 week, an appointment has been requested for you. Follow up with cardiology within 3-4 weeks, or sooner if you have any questions or concerns regarding medications. Pending Studies at Discharge: No Stand-Alone Forms: My [facility], Work/School Release (Inpt), Smoking Cessation Medications and DC Order Prescriptions: New nicotine [Nicoderm CQ] 21 mg/24 hr Patch 24 Hour 21 mg transdermal QAM Qty: 14 RF: 1 Continued furosemide 40 mg tablet 40 mg PO QAM RF: 0 carvedilol 25 mg tablet 25 mg PO BID RF: 0 magnesium 250 mg tablet 250 mg PO QAM RF: 0 potassium gluconate 595 mg (99 mg) tablet 595 mg PO QAM RF: 0 fexofenadine 180 mg tablet 180 mg PO QAM RF: 0 lisinopril 40 mg tablet 40 mg PO QAM RF: 0 Xarelto 20 mg tablet 20 mg PO DAILY 30 Days Qty: 30 RF: 0 Discontinued aspirin [Adult Low Dose Aspirin] 81 mg tablet,delayed release (DR/EC) 81 mg PO QAM RF: 0 Discharge Orders: Discharge Order (Routine); Ordered 06/09/19 Ordered By: Jennifer Bolton Admission Data Admit Date/Time: 06/09/19 11:07 Attending Provider: Manolo eGiger Admit Provider: Manolo Geiger Primary Care Provider: Manolo Latif Other Providers: Johnnie Bal ; Milena Lozano Coding Level of Care Code Admit/DC Same Day >8hr Level 2 Diagnoses Paroxysmal atrial fibrillation with RVR I48.0 Non-ischemic cardiomyopathy I42.8 Hypertension I10 Current smoker F17.200 Alcohol use Z72.89 DVT prophylaxis Z29.9
[2019-06-09] MEDS ORDERED: SODIUM CHLORIDE 0.9% 1000ML 1,000 ML IV SCH (12:00)
[2019-06-09] MEDS ORDERED: NICOTINE 21 MG/24 HR TDSY TD SCH (12:00)
--- NOTE | 2019-06-09 13:04 | Electrocardiogram Report ---
Test Reason : Blood Pressure : / mmHG Vent. Rate : 107 BPM Atrial Rate : 104 BPM P-R Int : 000 ms QRS Dur : 094 ms QT Int : 400 ms P-R-T Axes : 000 024 091 degrees QTc Int : 534 ms Poor data quality, interpretation may be adversely affected Atrial fibrillation with rapid ventricular response with premature ventricular or aberrantly conducte d complexes Prolonged QT Abnormal ECG When compared with ECG of 09-JUN-2019 08:14, (unconfirmed) No significant change was found Confirmed by Qamar Bal ([id number] on 06/09/2019 1:04:14 PM Referred By: REFERRED SELF Confirmed By:Scotty Bal
--- NOTE | 2019-06-09 13:04 | Electrocardiogram Report ---
Test Reason : Blood Pressure : / mmHG Vent. Rate : 142 BPM Atrial Rate : 147 BPM P-R Int : 000 ms QRS Dur : 086 ms QT Int : 312 ms P-R-T Axes : 000 031 096 degrees QTc Int : 479 ms Atrial fibrillation with rapid ventricular response Abnormal ECG When compared with ECG of 29-MAY-2019 06:21, Atrial fibrillation has replaced Sinus rhythm Vent. rate has increased BY 76 BPM Confirmed by Qamar Bal ([id number]) on 06/09/2019 1:04:06 PM Referred By: Confirmed By:Scotty Bal
--- NOTE | 2019-06-09 13:05 | Electrocardiogram Report ---
Test Reason : Blood Pressure : / mmHG Vent. Rate : 072 BPM Atrial Rate : 072 BPM P-R Int : 152 ms QRS Dur : 090 ms QT Int : 432 ms P-R-T Axes : 071 026 082 degrees QTc Int : 473 ms Normal sinus rhythm Possible Left atrial enlargement Borderline ECG When compared with ECG of 09-JUN-2019 08:45, (unconfirmed) Sinus rhythm has replaced Atrial fibrillation Vent. rate has decreased BY 35 BPM QT has shortened Confirmed by Qamar Bal ([id number] on 06/09/2019 1:05:30 PM Referred By: REFERRED SELF Confirmed By:Scotty Bal
--- NOTE | 2019-06-09 14:42 | Emergency Department Note ---
Entered by Ricardo Hines acting as a scribe for History of Present Illness General Chief complaint: Shortness of Breath/Dyspnea Time Seen by Provider: 06/09/19 08:07 Source: patient History of Present Illness Onset (ago): hour(s) (2.75) Location: chest Pain Consistency: + constant Quality: + other (SOB) Associated symptoms: no chest pain The patient is a 53 y/o male who presents to the ED w/ CC of constant shortness of breath beginning 2.75 hours ago. The patient states he woke this morning around 0530 and was severely short of breath and could not breath. He reports when he went to sleep last night he was baseline. The patient notes he was recently in the hospital and was told his heart enzymes were elevated. He states at this time he was not told he had a-fib, but he has heard of it before. The patient reports none of his medication was change while in the ED, and he did take his carvedilol and magnesium today. He states a history of CHF and a small blood clot in his heart by one of his valves. The patient denies taking a blood thinner currently. He denies chest pain. Home Medications Home Medications Medication Instructions Recorded Confirmed Type carvedilol 25 mg tablet 25 mg PO BID 01/24/19 06/09/19 History furosemide 40 mg tablet 40 mg PO QAM 01/24/19 06/09/19 History magnesium 250 mg tablet 250 mg PO QAM 01/24/19 06/09/19 History potassium gluconate 595 mg (99 mg) 595 mg PO QAM tab 01/24/19 06/09/19 History tablet Xarelto 20 mg PO DAILY 30 Days #30 tab 06/09/19 Rx fexofenadine 180 mg PO QAM 06/09/19 06/09/19 History lisinopril 40 mg PO QAM 06/09/19 06/09/19 History nicotine [Nicoderm CQ] 21 mg TRANSDERMAL QAM #14 ea 06/09/19 Rx Allergies Allergy/AdvReac Type Severity Reaction Status Date / Time No Known Allergies Allergy Unverified 06/09/19 08:43 Past Med/Surg History Medical History Acute systolic congestive heart failure, NYHA class 4 CHF (congestive heart failure) (Chronic) Current smoker Heart valve malfunction (Chronic) Hypertension Hypotension Micturition syncope Non-ischemic cardiomyopathy Surgical History No pertinent past surgical history Family History Mother Heart disease Father Coronary heart disease H/O aortic valve replacement Brother Coronary heart disease Social History Preferred Language: Peruvian Communication Ability: Effective Check Cashier Required: No Beliefs That Will Affect Care: None Current Living Situation: Alone Feels Safe at Home: Yes Smoking Status: Current every day smoker Tobacco Type: cigarettes ; Cigarettes Per Day: 20 ; Second Hand Exposure: No ; Hx Alcohol Use: Yes Alcohol type: beer Hx Substance Use: No Review of Systems See HPI for pertinent positives & negatives. and A total of 10 systems reviewed and were otherwise negative Physical Exam Vital Signs Vital Signs - 24 hr 06/09/19 08:28 06/09/19 08:48 06/09/19 08:50 Temperature 36.5 C Temperature Source Oral Pulse Rate 159 H Pulse Rate [Left Finger] 104 H 103 H Respiratory Rate 16 22 16 Blood Pressure 80/61 L Blood Pressure [Left Arm] 99/61 L 126/83 Blood Pressure Mean 67 Blood Pressure Mean [Left Arm] 73 97 Pulse Oximetry 100 100 100 Oxygen Delivery Method Nasal Cannula Nasal Cannula Nasal Cannula Oxygen Flow Rate 2 2 2 Sepsis Recent Fever Within 48 Hours No Sepsis New/Unexplained Change in Mental Status No Sepsis Action Taken by Nursing No Action Required 06/09/19 10:08 06/09/19 10:56 Temperature Temperature Source Pulse Rate Pulse Rate [Left Finger] 81 78 Respiratory Rate 18 18 Blood Pressure Blood Pressure [Left Arm] 111/69 120/65 Blood Pressure Mean Blood Pressure Mean [Left Arm] 83 83 Pulse Oximetry 98 99 Oxygen Delivery Method Nasal Cannula Nasal Cannula Oxygen Flow Rate 2 2 Sepsis Recent Fever Within 48 Hours Sepsis New/Unexplained Change in Mental Status Sepsis Action Taken by Nursing GENERAL: Awake, alert, well-appearing, in no acute distress HENT: Normocephalic, atraumatic. Oropharynx unremarkable. EYES: Normal conjunctiva. Sclera non-icteric. NECK: Supple. No nuchal rigidity. FROM. No JVD. RESPIRATORY: Clear to auscultation. CARDIAC: Tachycardic and irregularly irregular. Extremities warm and well perfused. Pulses equal. ABDOMEN: Soft, non-distended. No tenderness to palpation. No rebound or guarding. No masses. RECTAL: Deferred. MUSCULOSKELETAL: Chest examination reveals no tenderness. The back is symmetrical on inspection without obvious abnormality. There is no CVA tenderness to palpation. No joint edema. LOWER EXTREMITIES: Calves are equal size bilaterally and non-tender. No edema. No discoloration. NEURO: Normal sensorium. No sensory or motor deficits noted. SKIN: No rash or jaundice noted. Pale. Diaphoretic. Course Course 0810: Past medical records reviewed. The patient was evaluated in room A09B by the resident under my supervision. A complete history and physical exam was performed. 0814: Past medical records reviewed. The patient was evaluated in room A09B by me. A complete history and physical exam was performed. 0835: I discussed the patient's case with Dr. Bal, Cardiology. He agrees with the treatment plan. 0851: I reviewed the patient's case with Brea Bolton PA-C, [facility] Hospitalist, attending Dr. Lozano. She will evaluate the patient for further management. 0906: The patient's rhythm broke to a sinus rhythm. Another EKG was obtained. 1100: I reevaluated the patient. Dr. Bal is at the bedside. Administered Medications Discontinued Medications Etomidate (Amidate) 20 mg IV NOW ONE Stop: 06/09/19 08:28 Last Admin: 06/09/19 10:25 Dose: Not Given Documented by: [id number] Heparin Sodium (Porcine) (Heparin Sodium (Porcine)) Confirm Administered Dose 5,000 units .ROUTE .STK-MED ONE Stop: 06/09/19 10:37 Last Admin: 06/09/19 10:51 Dose: 5,000 units Documented by: [id number] Cosigned by: [id number] Heparin Sodium/Dextrose () 1 ea IV NOW STA; Protocol Stop: 06/09/19 10:24 Last Admin: 06/09/19 12:28 Dose: Not Given Documented by: [id number] Diltiazem HCl 125 mg/ Dextrose 125 mls @ 5 mls/hr IV .Q24H [facility]; Protocol Stop: 07/09/19 08:29 Last Titration: 06/09/19 11:00 Dose: 0 mg/hr, 0 mls/hr Documented by: [id number] Cosigned by: [id number] Titration: 06/09/19 09:30 Dose: 5 mg/hr, 5 mls/hr Documented by: [id number] Cosigned by: [id number] Admin: 06/09/19 08:38 Dose: 5 mg/hr, 5 mls/hr Documented by: [id number] Cosigned by: [id number] Sodium Chloride (Nss 1000ml) 1,000 mls @ 999 mls/hr IV .Q1H1M ONE Stop: 06/09/19 09:27 Last Infusion: 06/09/19 09:00 Dose: 0 mls/hr Documented by: [id number] Admin: 06/09/19 08:20 Dose: 999 mls/hr Documented by: [id number] Magnesium Sulfate/Dextrose (Magnesium Sulfate / D5w) 1 gm in 100 mls @ 100 mls/hr IV Q1H [facility] Stop: 06/09/19 12:29 Last Admin: 06/09/19 08:38 Dose: Not Given Documented by: [id number] Admin: 06/09/19 08:37 Dose: Not Given Documented by: [id number] Admin: 06/09/19 08:37 Dose: Not Given Documented by: [id number] Admin: 06/09/19 08:37 Dose: Not Given Documented by: [id number] Sodium Chloride (Nss 1000ml) 1,000 mls @ 80 mls/hr IV .[id number] [facility] Stop: 06/09/19 12:01 Last Admin: 06/09/19 12:28 Dose: Not Given Documented by: [id number] Heparin Sodium/Dextrose (Heparin Sodium/Dextrose) 25,000 units in 500 mls @ 23 mls/hr IV .[id number] [facility]; Protocol Stop: 07/09/19 10:29 Last Titration: 06/09/19 12:23 Dose: 0 units/hr, 0 mls/hr Documented by: [id number] Cosigned by: [id number] Admin: 06/09/19 10:51 Dose: 1,150 units/hr, 23 mls/hr Documented by: [id number] Cosigned by: [id number] Magnesium Sulfate/Dextrose (Magnesium Sulfate / D5w) Confirm Administered Dose 2 gm IV .STK-MED ONE Stop: 06/09/19 08:16 Last Admin: 06/09/19 08:15 Dose: 2 gm Documented by: [id number] Magnesium Sulfate/Dextrose (Magnesium Sulfate / D5w) Confirm Administered Dose 1 gm IV .STK-MED ONE Stop: 06/09/19 08:22 Last Admin: 06/09/19 08:15 Dose: 1 gm Documented by: [id number] Magnesium Sulfate/Dextrose (Magnesium Sulfate / D5w) Confirm Administered Dose 1 gm IV .STK-MED ONE Stop: 06/09/19 08:23 Last Admin: 06/09/19 08:22 Dose: 1 gm Documented by: [id number] Nicotine (Nicoderm Cq) 21 mg TD QAM [facility] Stop: 07/09/19 11:59 Last Admin: 06/09/19 12:28 Dose: Not Given Documented by: [id number] Critical Care Time Critical Care Time: Yes Total Critical Care Time: 90 I have personally spent 90 minutes of critical care time in the direct management of this patient. This includes bedside care, interpretation of d iagnostic studies, and testing, discussion with consultants, patient, and family members, and other required patient management activities. This 90 minutes is in excess of all separately billable procedures. Medical Decision Making Differential Diagnosis Differential diagnoses includes but is not limited to pneumonia, bronchitis, COPD/Asthma exacerbation, pneumothorax, pulmonary embolism, congestive heart failure, acute coronary syndrome Medical Records Attestation: I reviewed the patient's medical records. Home Medications Current Medication List: was personally reviewed by me Laboratory Data Attestation: I reviewed the patient's lab results. Result diagrams: 06/09/19 08:02 06/09/19 08:02 Lab Results 06/09/19 06/09/19 06/09/19 Range/Units 08:02 08:02 08:02 WBC 8.22 (4.8-10.8) K/uL RBC 4.77 (4.7-6.1) M/uL Hgb 16.8 (14.0-18.0) g/dL Hct 46.8 (42-52) % MCV 98.1 (80-100) fL MCH 35.2 H (25-34) pg MCHC 35.9 (32-36) g/dL RDW Std Deviation 46.1 (36.4-46.3) fL RDW Coeff of Britney 12.7 (11.5-14.5) % Plt Count 196 (130-400) K/uL MPV 9.7 (7.4-10.4) fL Immature Gran % (Auto) 0.2 % Neut % (Auto) 60.2 % Lymph % (Auto) 25.2 % [place] % (Auto) 11.8 % Eos % (Auto) 1.6 % Baso % (Auto) 1.0 % Immature Gran # (Auto) 0.02 (0.00-0.02) K/uL Neut # (Auto) 4.95 (1.4-6.5) K/uL Lymph # (Auto) 2.07 (1.2-3.4) K/uL [place] # (Auto) 0.97 H (0.11-0.59) K/uL Eos # (Auto) 0.13 (0-0.5) K/uL Baso # (Auto) 0.08 (0-0.2) K/uL PT 9.9 (9.0-12.0) Seconds INR 1.0 (0.9-1.1) APTT 25.9 (21.0-31.0) Seconds PTT Ratio 1.0 Sodium 133 L (136-145) mmol/L Potassium 4.2 (3.5-5.1) mmol/L Chloride 101 (98-107) mmol/L Carbon Dioxide 21 (21-32) mmol/L Anion Gap 11.0 (3-11) BUN 12 (7-18) mg/dl Creatinine 0.83 (0.6-1.4) mg/dl Est Cr Clr Drug Dosing 92.9 ml/min Est GFR ( Amer) 116.4 Est GFR (Non-Af Amer) 100.5 BUN/Creatinine Ratio 14.4 (10-20) Glucose 106 H (70-99) mg/dl Calcium 8.6 (8.5-10.1) mg/dl Total Bilirubin 0.6 (0.2-1) mg/dl AST 35 (15-37) U/L ALT 45 (12-78) U/L Alkaline Phosphatase 66 (45-117) U/L Total Creatine Kinase 132 (39-308) U/L CK-MB (CK-2) 1.5 (0.5-3.6) ng/ml CK/CKMB % Calc 1.1 (0-3.0) Troponin I < 0.015 (0-0.045) ng/ml Total Protein 6.7 (6.4-8.2) gm/dl Albumin 3.8 (3.4-5.0) gm/dl Globulin 2.9 (2.5-4.0) gm/dl Albumin/Globulin Ratio 1.3 (0.9-2) Lipase 321 (73-393) U/L Imaging Data Radiologist's Impression: Radiology results as stated below per my review and the radiologist's interpretation: XR chest 1V portable CLINICAL HISTORY: Atypical chest pain COMPARISON STUDY: 05/28/2019 FINDINGS: The cardiac and mediastinal contours are normal. There is no evidence of focal pulmonary consolidation. There is no evidence of failure. No pleural effusions are visualized.[ IMPRESSION: No active disease in the chest. ACT 112: Negative or not required by law. Electronically signed by: Quinton Burnham M.D. 06/09/2019 8:30 AM ECG Data Attestation: I personally reviewed and interpreted this ECG as follows: Indication: + SOB/dyspnea Rate (beats per minute): 142 Rhythm: + atrial fibrillation (with RVR) ECG ST segments: no ST depression and no ST elevation ECG Findings: + Other (QTc of 479) Additional Comments: REPEAT EKG IN THE SAME HOSPITAL VISIT: Normal sinus rhythm with a rate of 72. QTc of 473. No ST elevation or depression. Blood Pressure Blood Pressure Findings: Elevated blood pressure Blood Pressure Disposition: further management by hospitalist MDM Narrative This is a 53-year-old male who arrives to the emergency department in acute distress. The patient is in A. fib with RVR and is hypotensive. Based on this I strongly recommended to the patient that he be cardioverted however he is refusing. He was then given 4 g of magnesium along with a normal saline bolus and placed on a Cardizem drip. Repeat examination revealed improvement in the patient's symptoms. I did discuss the case with the hospitalist service who did agree to admit the patient. Patient was in agreement with the treatment plan. Impression & Plan Paroxysmal atrial fibrillation with RVR, CHF (congestive heart failure), Hypotension Discharge Plan Visit Data *Final* Discharge Date/Time: 06/09/19 10:57 Chief Complaint: Shortness of Breath/Dyspnea ED Provider: Carlito Lara ED Midlevel Provider: Yokasta Wiley Discharge Problem: Paroxysmal atrial fibrillation with RVR, CHF (congestive heart failure), Hypotension Patient Disposition: Admitted As Inpatient Condition: Good Discharge Instructions Interventions: ED Discharge Assessment Last Done: 06/09/19 10:57 Discharge Problem: CHF (congestive heart failure) Qualifiers: Heart failure type: unspecified Heart failure chronicity: unspecified Qualified Code(s): I50.9 - Heart failure, unspecified Hypotension Qualifiers: Hypotension type: unspecified hypotension type Qualified Code(s): I95.9 - Hypotension, unspecified The scribe's documentation has been prepared under my direction and personally reviewed by me in its entirety. I confirm that the note above accurately reflects all work, treatment, procedures, and medical decision making performed by me.
[2019-06-09] MEDS ORDERED: carvediloL 25 MG TAB PO SCH (21:00)
[2019-06-10] MEDS ORDERED: MAGNESIUM OXIDE 400 MG TAB PO SCH (09:00)
[2019-06-10] MEDS ORDERED: lisinopriL 40 MG TAB PO SCH (09:00)
[2019-06-10] MEDS ORDERED: NON-FORMULARY MEDICATION (Potassium Gluconate 595 MG) PO SCH (09:00)
[2019-06-10] MEDS ORDERED: ASPIRIN 81 MG ECTAB PO SCH (09:00)
[2019-06-10] MEDS ORDERED: FUROSEMIDE 40 MG TAB PO SCH (09:00)
[2019-06-10] MEDS ORDERED: FEXOFENADINE HCL 180 MG TAB PO SCH (09:00)
== END 2019-06-09 17:05 | disposition home or self-care (01) | DRG 310 ==
LOC: ED 08:05 → 1E 10:57

== ENCOUNTER 2022-09-12 10:07 | Inpatient (IN) ==
[2022-09-12] MEDS ORDERED: FUROSEMIDE 40 MG/4 ML VIAL IV ONE (10:15)
[2022-09-12] MEDS ORDERED: NITROGLYCERIN/D5W 100MCG/ML 250 ML IV SCH (10:30)
[2022-09-12 10:43] LABS: Basophils # (auto) 0.09 K/uL (0-0.2); Basophils % (auto) 1.1 %; Eosinophils # (auto) 0.13 K/uL (0-0.50); Eosinophils % (auto) 1.6 %; Hematocrit (blood only) 41.2 % (42.0-52.0); Hemoglobin 14.5 g/dl (14.0-18.0); Immature Granulocytes # (auto) 0.05 K/uL (0.01-0.20); Immature Granulocytes % (auto) 0.6 %; Lymphocytes # (auto) 1.36 K/uL (1.2-3.4); Lymphocytes % (auto) 16.3 %; Mean Corpuscular Hemoglobin 35.1 pg (25.0-34.0); Mean Corpuscular Hgb Conc 35.2 g/dL (32.0-36.0); Mean Corpuscular Volume 99.8 fL (80.0-100.0); Mean Platelet Volume 9.8 fL (9.4-12.4); Monocytes # (auto) 0.64 K/uL (0.11-0.59); Monocytes % (auto) 7.7 %; Neutrophils # (auto) 6.06 K/uL (1.40-6.50); Neutrophils % (auto) 72.7 %; Platelet Count 186 K/uL (130-400); RDW Coefficient of Variation 12.6 % (11.5-14.5); RDW Standard Deviation 46.1 fL (36.4-46.3); Red Blood Count 4.13 M/uL (4.70-6.10); White Blood Count 8.33 K/ul (4.8-10.8)
--- NOTE | 2022-09-12 10:52 | XRay Report ---
XR chest 1V portable HISTORY: Dyspnea COMPARISON: Chest 05/13/2021. FINDINGS: No pneumothorax. No pleural effusions. The cardiac silhouette is mildly enlarged. No new fo de lung consolidations to suggest a pneumonia. There is progressive interstitial/vascular thickening consistent with developing pulmonary edema. IMPRESSION: Mild cardiomegaly with developing pulmonary edema. ACT 112: Negative or not required by law. Electronically signed by: Malik Fatima M.D. 09/12/2022 10:51 AM
[2022-09-12 10:57] LABS: Albumin Globulin Ratio 2.1 (0.9-2); Albumin Level 3.9 gm/dl (3.4-5.0); BUN Creatinine Ratio 12.7 (10-20); Bilirubin,Total 0.7 mg/dl (0.2-1.0); Calcium 8.1 mg/dl (8.6-10.3); Creatinine Clr Calc Pharmacy 104.8 ml/min; Est GFR (African American) 121.6 ml/min; Est GFR (Non-African American) 104.9 ml/min; Globulin 1.9 gm/dl (2.5-4.0); Potassium 4.1 mmol/L (3.5-5.1); Total Protein 5.8 gm/dl (6.0-8.3)
[2022-09-12 11:04] LABS: Troponin I High Sensitivity 22.4 pg/ml (0-20)
--- NOTE | 2022-09-12 11:15 | Emergency Department Note ---
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 CHF protocol started by EMS. Patient was markedly hypertensive despite receiving significant nitroglycerin administration prehospital. He was transitioned from CPAP to BiPAP. He had gradual improvement of his work of breathing with that and initiation of a nitro drip. Patient's blood pressure was better controlled and gradually improved to being normotensive. The patient was given 40 mg of IV La six and this resulted in an diuresis of 800 mL of urine. Patient improved significantly. Respiratory was contacted and patient was transitioned off of BiPAP. Patient's blood pressure was significantly better and we decreased then stopped the nitro drip. Patient's blood work was significant for an elevated BNP and troponin. Patient is currently anticoagulated. Chest x-ray was consistent with cardiomegaly and pulmonary edema. At this point the patient is made a significant improvement in his distress is subsided. Patient will require further management and work-up in the hospital. Consultation was made with Dr. Manolo Juan of the [facility] service. Patient was evaluated in the ER for further management. Discussed with global project manager. Discussed with ED pharmacist regarding nitroglycerin drip. After review of the information above and other included data, I feel the patient requires admission. Triage Nursing notes reviewed and agree them. Vital Signs: reviewed and remarkable for marked hypertension and oxygen requirement Prior /Outside records reviewed: Prior cardiology admission reviewed. NICM noted. Differential diagnosis: CHF, infections, cardiac ischemia, pulmonary embolism, Reactive airway disease, pneumonia, pneumothorax, COPD, musculoskeletal, gastrointestinal, as well as other pathologies. Diagnostics, as interpreted by me: ECLead ECG reveals a sinus tachycardic rhythm at 101 bpm. Biatrial enlargement. Nonspecific ST. No PVCs. Cardiac Monitoring: Cardiac monitoring ordered by me: The patient was placed on continuous cardiac monitoring and observed. It revealed a normal sinus rhythm at 90 beats per minute without ectopy or evidence of dysrhythmia. Medical decision rules: none Imaging studies: Chest x-ray consistent with cardiomegaly and pulmonary edema. HPI: The patient is a 56year old male who presents to the Emergency Room with complaints of acute shortness of breath. This started about a week ago, noting it was gradual and suddenly worsened today. EMS was summoned. He was found to be hypoxic and had significant work of breathing. He had crackles and has a history of CHF and nonischemic cardiomyopathy. The patient also notes the following associated symptoms, feeling weak. The patient has been given 1 sublingual nitro then followed by protocol of 3 sublingual nitroglycerin x3 and CPAP for relieving factors. Current pain is rated as 0/10. Pt denies LOC, headache, fevers, chills, diaphoresis, visual changes, neck pain, chest pain, leg swelling, nausea, vomiting, abdominal pain, back pain, melena, hematochezia, urinary symptoms, numbness, weakness, lymphadenopathy, rash, or other complaints. PAST MEDICAL HISTORY: See Below, nonischemic cardiomyopathy, CHF PAST SURGICAL HISTORY: See Below, SOCIAL HISTORY: See Below, smoker HOME MEDICATIONS: See Below ALLERGIES: See Below VITALS: See Below PHYSICAL EXAMINATION: GENERAL: Awake, alert, very dyspneic-appearing, in severe distress HENT: Normocephalic, atraumatic. Oropharynx unremarkable. EYES: Normal conjunctiva. Sclera non-icteric. NECK: Inspection normal. Non-tender. Supple. No nuchal rigidity. FROM. No masses. RESPIRATORY: Significant rales. Breath sounds equal. Very increased respiratory effort. CARDIAC: Normal rate. Normal rhythm. No murmurs. No rubs. Extremities warm and well perfused. Pulses equal. No JVD. GI: Soft, non-distended. No tenderness to palpation. No rebound or guarding. No masses. RECTAL: Deferred. MUSCULOSKELETAL: Atraumatic. Chest examination reveals no tenderness. The back is symmetrical on inspection without obvious abnormality. There is no CVA tenderness to palpation. No joint edema. LOWER EXTREMITIES: Calves are equal size bilaterally and non-tender. No edema. No discoloration. NEURO: Normal sensorium. No sensory or motor deficits noted. SKIN: No rash or jaundice noted. CRITICAL CARE: I have personally spent greater than 45 minutes of critical care time in the direct management of this patient. This includes bedside care, interpretation of diagnostic studies, and testing, discussion with consultants, patient, and other required patient management activities. These minutes are in excess of all separately billable procedures. Past Med/Surg History Medical History (Updated 09/13/22 @ 08:41 by Fidencio Proctor MD) Acute systolic congestive heart failure, NYHA class 4 CHF (congestive heart failure) Current smoker Heart valve malfunction Hypertension Hypotension Micturition syncope Non-ischemic cardiomyopathy Surgical History No pertinent past surgical history Family History Mother Heart disease Father Coronary heart disease H/O aortic valve replacement Brother Coronary heart disease Social History Smoking Status: Current every day smoker Tobacco Type: Cigarettes Cigarettes Per Day: 20; Second Hand Exposure: No; Do You Dip or Chew Tobacco: No; Tobacco Cessation Education Requested by Patient: No Hx Alcohol Use: Yes Alcohol type: beer Hx Substance Use: No Preferred Language: Bulgarian Communication Ability: Effective Category Director Required: No Beliefs That Will Affect Care: None Current Living Situation: Alone Other Information That Helps Us Care for You: No Feels Safe at Home: Yes Safety Concerns: Feels Safe At This Time Assistive Devices: None Allergies Allergies Allergy/AdvReac Type Severity Reaction Status Date / Time No Known Allergies Allergy Unverified 10/01/21 14:06 Home Meds Previous Rx's Medication Instructions Recorded carvedilol 25 mg tablet 25 mg PO BID #180 tabs 10/01/21 lisinopril 40 mg tablet 40 mg PO QAM #90 tabs 10/01/21 rivaroxaban 20 mg tablet (Xarelto) 20 mg PO DAILY 90 days #90 tabs 10/01/21 Results & Data (ED) Vital Signs Vital Signs - 24 hr 09/12/22 10:12 09/12/22 10:44 09/12/22 10:18 Pulse Rate 92 H 96 H Pulse Rate from SpO2 Sensor Respiratory Rate 26 H Respiratory Effort / Characteristics Spontaneous Short of Breath Spontaneous Accessory Muscle Use Short of Breath Respiratory Depth Retractive Respiratory Pattern Blood Pressure 195/128 H Blood Pressure Mean 150 Pulse Oximetry 97 Oxygen Delivery Method BiPAP Fraction of Inspired Oxygen Sepsis New/Unexplained Change in Mental Status N/A Sepsis Action Taken by Nursing No Action Required 09/12/22 10:22 09/12/22 10:20 09/12/22 10:25 Pulse Rate 99 H 96 H 93 H Pulse Rate from SpO2 Sensor 86 76 Respiratory Rate 30 H 22 20 Respiratory Effort / Characteristics Spontaneous Labored Short of Breath Respiratory Depth Respiratory Pattern Tachypnea Blood Pressure 152/104 H 146/95 H Blood Pressure Mean 120 112 Pulse Oximetry 96 98 95 Oxygen Delivery Method BiPAP BiPAP Fraction of Inspired Oxygen 35 Sepsis New/Unexplained Change in Mental Status Sepsis Action Taken by Nursing 09/12/22 10:30 09/12/22 10:35 09/12/22 10:40 Pulse Rate 93 H 86 Pulse Rate from SpO2 Sensor 74 70 Respiratory Rate 22 17 Respiratory Effort / Characteristics Respiratory Depth Respiratory Pattern Blood Pressure 123/100 118/84 128/72 Blood Pressure Mean 107 95 90 Pulse Oximetry 94 94 Oxygen Delivery Method BiPAP BiPAP Fraction of Inspired Oxygen 35 Sepsis New/Unexplained Change in Mental Status Sepsis Action Taken by Nursing 09/12/22 10:45 09/12/22 10:50 09/12/22 10:56 Pulse Rate 90 90 87 Pulse Rate from SpO2 Sensor 67 72 87 Respiratory Rate 26 H 22 17 Respiratory Effort / Characteristics Respiratory Depth Respiratory Pattern Blood Pressure 115/86 128/66 114/58 L Blood Pressure Mean 95 86 76 Pulse Oximetry 94 93 97 Oxygen Delivery Method BiPAP BiPAP BiPAP Fraction of Inspired Oxygen 35 35 Sepsis New/Unexplained Change in Mental Status Sepsis Action Taken by Nursing 09/12/22 11:00 09/12/22 11:05 Pulse Rate 83 77 Pulse Rate from SpO2 Sensor 68 75 Respiratory Rate 17 17 Respiratory Effort / Characteristics Respiratory Depth Respiratory Pattern Blood Pressure 102/69 111/69 Blood Pressure Mean 80 83 Pulse Oximetry 96 97 Oxygen Delivery Method BiPAP Fraction of Inspired Oxygen Sepsis New/Unexplained Change in Mental Status Sepsis Action Taken by Nursing Laboratory Data 09/12/22 10:26 09/12/22 10:26 Lab Results 09/12/22 09/12/22 09/12/22 Range/Units 10:26 10:26 10:26 WBC 8.33 (4.8-10.8) K/ul RBC 4.13 L (4.70-6.10) M/uL Hgb 14.5 (14.0-18.0) g/dl Hct 41.2 L (42.0-52.0) % MCV 99.8 (80.0-100.0) fL MCH 35.1 H (25.0-34.0) pg MCHC 35.2 (32.0-36.0) g/dL RDW Std Deviation 46.1 (36.4-46.3) fL RDW Coeff of Britney 12.6 (11.5-14.5) % Plt Count 186 (130-400) K/uL MPV 9.8 (9.4-12.4) fL Immature Gran % (Auto) 0.6 % Neut % (Auto) 72.7 % Lymph % (Auto) 16.3 % [place] % (Auto) 7.7 % Eos % (Auto) 1.6 % Baso % (Auto) 1.1 % Neut # (Auto) 6.06 (1.40-6.50) K/uL Lymph # (Auto) 1.36 (1.2-3.4) K/uL [place] # (Auto) 0.64 H (0.11-0.59) K/uL Eos # (Auto) 0.13 (0-0.50) K/uL Baso # (Auto) 0.09 (0-0.2) K/uL Immature Gran # (Auto) 0.05 (0.01-0.20) K/uL PT (9.0-12.0) Seconds INR (0.9-1.1) APTT (21.0-31.0) Seconds PTT Ratio D-Dimer (0-500) ug/L FEU Sodium 133 L (136-145) mmol/L Potassium 4.1 (3.5-5.1) mmol/L Chloride 102 (98-107) mmol/L Carbon Dioxide 22 (21-32) mmol/L Anion Gap 9 (3-11) BUN 9 (6-23) mg/dl Creatinine 0.71 (0.6-1.4) mg/dl Est Cr Clr Drug Dosing 104.8 ml/min Est GFR ( Amer) 121.6 ml/min Est GFR (Non-Af Amer) 104.9 ml/min BUN/Creatinine Ratio 12.7 (10-20) Glucose 158 H (70-99(Fasting)) mg/dl Calcium 8.1 L (8.6-10.3) mg/dl Total Bilirubin 0.7 (0.2-1.0) mg/dl AST 24 (13-39) U/L ALT 17 (7-52) U/L Alkaline Phosphatase 71 (34-104) U/L Troponin I High Sens 22.4 H (0-20) pg/ml B-Natriuretic Peptide 359 H (0-100) pg/ml Total Protein 5.8 L (6.0-8.3) gm/dl Albumin 3.9 (3.4-5.0) gm/dl Globulin 1.9 L (2.5-4.0) gm/dl Albumin/Globulin Ratio 2.1 H (0.9-2) Urine Color Urine Appearance (Clear) Urine pH (4.5-7.5) Ur Specific [place] (1.000-1.030) Urine Protein (Negative) Urine Glucose (UA) (Negative) Urine Ketones (Negative) Urine Blood (Negative) Urine Nitrite (Negative) Urine Bilirubin (Negative) Urine Urobilinogen (Negative) Ur Leukocyte Esterase (Negative) Adenovirus (PCR) (NotDetected) B. pertussis DNA (PCR) (NotDetected) B.parapertussis DNA PCR (NotDetected) C. pneumoniae DNA (PCR) (NotDetected) Coronavirus OC43 (PCR) (NotDetected) Coronavirus HKU1 (PCR) (NotDetected) Coronavirus 229E (PCR) (NotDetected) SARS-CoV-2 (PCR) (NotDetected) Coronavirus NL63 (PCR) (NotDetected) Human Metapneumovir PCR (NotDetected) Influenza Type A (PCR) (NotDetected) Influenza Type B (PCR) (NotDetected) M. pneumoniae (PCR) (NotDetected) Parainfluenza 1 (PCR) (NotDetected) Parainfluenza 2 (PCR) (NotDetected) Parainfluenza 3 (PCR) (NotDetected) Parainfluenza 4 (PCR) (NotDetected) RSV (PCR) (NotDetected) Entero/Rhino (PCR) (NotDetected) 09/12/22 09/12/22 09/12/22 Range/Units 10:26 10:38 10:56 WBC (4.8-10.8) K/ul RBC (4.70-6.10) M/uL Hgb (14.0-18.0) g/dl Hct (42.0-52.0) % MCV (80.0-100.0) fL MCH (25.0-34.0) pg MCHC (32.0-36.0) g/dL RDW Std Deviation (36.4-46.3) fL RDW Coeff of Britney (11.5-14.5) % Plt Count (130-400) K/uL MPV (9.4-12.4) fL Immature Gran % (Auto) % Neut % (Auto) % Lymph % (Auto) % [place] % (Auto) % Eos % (Auto) % Baso % (Auto) % Neut # (Auto) (1.40-6.50) K/uL Lymph # (Auto) (1.2-3.4) K/uL [place] # (Auto) (0.11-0.59) K/uL Eos # (Auto) (0-0.50) K/uL Baso # (Auto) (0-0.2) K/uL Immature Gran # (Auto) (0.01-0.20) K/uL PT 11.9 (9.0-12.0) Seconds INR 1.1 (0.9-1.1) APTT 28.1 (21.0-31.0) Seconds PTT Ratio 1.0 D-Dimer 860 H* (0-500) ug/L FEU Sodium (136-145) mmol/L Potassium (3.5-5.1) mmol/L Chloride (98-107) mmol/L Carbon Dioxide (21-32) mmol/L Anion Gap (3-11) BUN (6-23) mg/dl Creatinine (0.6-1.4) mg/dl Est Cr Clr Drug Dosing ml/min Est GFR ( Amer) ml/min Est GFR (Non-Af Amer) ml/min BUN/Creatinine Ratio (10-20) Glucose (70-99(Fasting)) mg/dl Calcium (8.6-10.3) mg/dl Total Bilirubin (0.2-1.0) mg/dl AST (13-39) U/L ALT (7-52) U/L Alkaline Phosphatase (34-104) U/L Troponin I High Sens (0-20) pg/ml B-Natriuretic Peptide (0-100) pg/ml Total Protein (6.0-8.3) gm/dl Albumin (3.4-5.0) gm/dl Globulin (2.5-4.0) gm/dl Albumin/Globulin Ratio (0.9-2) Urine Color Yellow Urine Appearance Clear (Clear) Urine pH 5.0 (4.5-7.5) Ur Specific [place] 1.007 (1.000-1.030) Urine Protein Negative (Negative) Urine Glucose (UA) Negative (Negative) Urine Ketones Negative (Negative) Urine Blood Negative (Negative) Urine Nitrite Negative (Negative) Urine Bilirubin Negative (Negative) Urine Urobilinogen Negative (Negative) Ur Leukocyte Esterase Negative (Negative) Adenovirus (PCR) Not Detected (NotDetected) B. pertussis DNA (PCR) Not Detected (NotDetected) B.parapertussis DNA PCR Not Detected (NotDetected) C. pneumoniae DNA (PCR) Not Detected (NotDetected) Coronavirus OC43 (PCR) Not Detected (NotDetected) Coronavirus HKU1 (PCR) Not Detected (NotDetected) Coronavirus 229E (PCR) Not Detected (NotDetected) SARS-CoV-2 (PCR) Not Detected (NotDetected) Coronavirus NL63 (PCR) Not Detected (NotDetected) Human Metapneumovir PCR Not Detected (NotDetected) Influenza Type A (PCR) Not Detected (NotDetected) Influenza Type B (PCR) Not Detected (NotDetected) M. pneumoniae (PCR) Not Detected (NotDetected) Parainfluenza 1 (PCR) Not Detected (NotDetected) Parainfluenza 2 (PCR) Not Detected (NotDetected) Parainfluenza 3 (PCR) Not Detected (NotDetected) Parainfluenza 4 (PCR) Not Detected (NotDetected) RSV (PCR) Not Detected (NotDetected) Entero/Rhino (PCR) Not Detected (NotDetected) Administered Medications Albuterol (Albut/Ipratrop 3mg/0.5mg Neb 3 Ml Vial) 3 ml NEB QIDR [facility]; Protocol Stop: 10/12/22 14:59 Last Admin: 09/13/22 06:57 Dose: 3 ml Documented By: Admin: 09/12/22 19:46 Dose: 3 ml Documented By: Admin: 09/12/22 14:41 Dose: 3 ml Documented By: JUDITH Carvedilol (Carvedilol 25 Mg Tab) 25 mg PO BID [facility] Stop: 10/12/22 20:59 Last Admin: 09/12/22 21:09 Dose: 25 mg Documented By: ANH Furosemide (Furosemide Inj 20 Mg/2 Ml Vial) 20 mg IV BID YASIR Stop: 10/12/22 20:59 Last Admin: 09/12/22 21:09 Dose: 20 mg Documented By: ANH Discontinued Medications Furosemide (Furosemide 40 Mg/4 Ml Vial) 40 mg IV ONE ONE Stop: 09/12/22 10:16 Last Admin: 09/12/22 10:27 Dose: 40 mg Documented By: ALEISHA Guaifenesin (Guaifenesin 600 Mg Tabcr) 600 mg PO NOW STA Stop: 09/12/22 11:59 Last Admin: 09/12/22 12:33 Dose: 600 mg Documented By: PHIL Nitroglycerin/Dextrose (Nitroglycerin/D5w 100 Mcg/Ml) 250 mls @ 0 mls/hr IV .Q0M [facility]; Protocol Stop: 10/12/22 10:29 Last Titration: 09/12/22 21:13 Dose: 0 mcg/min, 0 mls/hr Documented By: Titration: 09/12/22 11:04 Dose: 0 mcg/min, 0 mls/hr Documented By: Titration: 09/12/22 10:40 Dose: 5 mcg/min, 3 mls/hr Documented By: Admin: 09/12/22 10:26 Dose: 10 mcg/min, 6 mls/hr Documented By: ALEISHA Co-signed By: YRIS Lisinopril (Lisinopril 40 Mg Tab) 40 mg PO NOW STA Stop: 09/12/22 12:03 Last Admin: 09/12/22 12:33 Dose: 40 mg Documented By: PHIL Nicotine (Nicotine 21 Mg/24 Hr Tdsy) 21 mg TD NOW STA Stop: 09/12/22 12:07 Last Admin: 09/12/22 12:34 Dose: 21 mg Documented By: PHIL Imaging Data Radiologist's Impression: Chest X-Ray 09/12/22 10:15 XR chest 1V portable HISTORY: Dyspnea COMPARISON: Chest 05/13/2021. FINDINGS: No pneumothorax. No pleural effusions. The cardiac silhouette is mildly enlarged. No new focal lung consolidations to suggest a pneumonia. There is progressive interstitial/vascular thickening consistent with developing pulmonary edema. IMPRESSION: Mild cardiomegaly with developing pulmonary edema. ACT 112: Negative or not required by law. Electronically signed by: Malik Fatima M.D. 09/12/2022 10:51 AM Discharge Plan Visit Data Chief Complaint: Shortness of Breath/Dyspnea Stated Complaint: SHORTNESS OF BREATH, CHF ED Provider: Fidencio Proctor Discharge Problem: Acute CHF, Hypertensive emergency, Elevated troponin Patient Disposition: Admitted As Inpatient Discharge Instructions Interventions: ED Discharge Assessment Last Done: 09/12/22 13:12
--- NOTE | 2022-09-12 11:33 | History & Physical Report ---
Date of Service September 12, 2022 Assessment & Plan (1) Acute respiratory failure with hypoxia: Plan: -Admit to the PCU on tele and continuous pulse oximetry -At this time the patient is stable on 4L NC -At this time his hypoxic respiratory failure is likely secondary to acute CHF -Was initially hypoxic in the 60% and required Bipap, was weaned off after initially treatment with 40 IV lasix and initiation of nitro trip -Noted to have pulm edema on CXR with elevated BNP of 359 -Does not have a previous diagnosis of COPD and does not examine as a COPD exacerbation at this time -Low suspicion of PE at this time as he has been on xarelto, is without pleuritic chest pain, is hemodynamically stable -Continue incentive spirometry, flutter therapy, prn robitussin, prn O2 to keep SpO2 between 88-92% -BL SCD's and xarelto for DVT PPX -AM CBC, BMP, Mag, PT/INR (2) Acute CHF: Plan: -Has a previous history of non-ischemic cardiomyopathy thought to be due from his previous alcohol abuse -Had a previously reduced LVEF and left ventricular thrombus, both had resolved as of his echo in 2019 -He likely has some decompensation at this time -Will obtain TTE -Continue carvedilol, 20 mg IV lasix BID -Monitor intake/output, daily weights -1500 mL fluid restrction (3) Hypertension: Plan: -His transient HTN on arrival was likely due to his acute illness and panic attack -Quickly resolved on arrival -Had his am dose of carvedilol, will give his dose of lisinopril now -Stable off nitro drip -Continue to monitor on tele (4) Elevated troponin: Plan: -Initial high sen trop elevated at 22 -Patient is asymptomatic without acute ECG changes -Likely due to demand -Will repeat a 2 hour trop, continue to monitor on tele (5) Paroxysmal atrial fibrillation with RVR: Plan: -Currently in NSR -Continue carvedilol and Xarelto (6) Current smoker: Plan: -Continue to stress the importance of cessation -Nicotine patch while admitted (7) Alcohol use: Plan: -Previous daily drinker -Reports occasional use while watching sports, no recent hx of withdrawal -Continue to monitor for now Plan The patient was discussed with Dr. Juan at the time of the admission -Diet: HH, 2 gm sodium restriction, 1500 mL fluid restriction History of Present Illness Chief Complaint: SOB Primary Care Provider: Manolo Latif MD Edilberto is a 56 year old male with a PMH significant for alcohol abuse with previous alcoholic cardiomyopathy (LVEF of 55-60% as of 2019), left ventricular apical thrombus, paroxysmal afib on xarelto, HTN, and tobacco abuse who presented to the [facility] ED on 09/12/22 via ALS due to SOB, acute hypoxic respiratory failure, and hypertensive emergency. Per the ED staff the patient experienced severe SOB this am and called EMS. EMS found the patient to be hypoxic in the 60's on arrival and hypertensive with systolic BP's in the 200's. He was placed on CPAP and given a total of 3 sublingual nitro tabs x 3 in route. In the ED his work of breathing continued to decline and he was transitioned to Bipap. His BP on arrival was 195/128 so he was placed on a nitroglycerine drip. Labs were significant for a CBC WNL, sodium of 133, initial high sen trop of 22, BNP of 359 Chest xray was read as mild cardiomegaly with developing pulmonary edema. Prior to admission the patient was given 40 mg IV lasix. At the time of the exam the patient was sitting in bed in no acute distress, currently stable on 4L NC. He states that he had been in his normal state of health until approximately 4 days ago. He started to notice a minimally productive cough and increased SOB with exertion. He was using Coricidin due to his hx of HTN. His symptoms continued to progress; this am he was very anxious due to his SOB and cough and believes he started to have a panic attack. Due to his panic attack and worsening respiratory status he called EMS. He currently feels much improved compared to arrival. He denies missing doses of his Xarelto and did take his am dose of Carvedilol prior to calling EMS. He is still smoking 1 PPD and only drinks 1-2 times weekly when watching sports. He denies recent fever, chills, chest pain, increased sputum production or change in sputum color but has been coughing more frequently than his baseline, abd pain, nausea, vomiting, diarrhea, dysuria, hematuria, LE swelling, and recent trauma. He was previously on daily lasix but this was stopped when his LVEF normalized on his last echo. He is a Full Code and would want his brother to make medical decisions for him if he cannot make them himself. Please refer to Dr. Juan's attestation for any changes to the treatment plan Allergies Allergy/AdvReac Type Severity Reaction Status Date / Time No Known Allergies Allergy Unverified 10/01/21 14:06 Home Medications Medication Instructions Recorded Confirmed Type carvedilol 25 mg tablet 25 mg PO BID #180 tabs 10/01/21 09/12/22 Rx lisinopril 40 mg tablet 40 mg PO QAM #90 tabs 10/01/21 10/01/21 Rx rivaroxaban 20 mg tablet (Xarelto) 20 mg PO DAILY 90 days #90 tabs 10/01/21 09/12/22 Rx furosemide 20 mg tablet (Lasix) 20 mg PO BID #60 tabs 09/13/22 Rx Past Med/Surg History Medical History (Updated 09/13/22 @ 11:51 by Luan Hernandez MD) Acute on chronic HFrEF (heart failure with reduced ejection fraction) Acute systolic congestive heart failure, NYHA class 4 CHF (congestive heart failure) Current smoker Heart valve malfunction Hypertension Hypotension Micturition syncope Non-ischemic cardiomyopathy Surgical History No pertinent past surgical history Family History Mother Heart disease Father Coronary heart disease H/O aortic valve replacement Brother Coronary heart disease Social History Smoking Status: Current every day smoker Tobacco Type: Cigarettes Cigarettes Per Day: 20; Second Hand Exposure: No; Do You Dip or Chew Tobacco: No; Tobacco Cessation Education Requested by Patient: No Hx Alcohol Use: Yes Alcohol type: beer Hx Substance Use: No Preferred Language: Lithuanian Communication Ability: Effective Trade [employer] Attorney Required: No Beliefs That Will Affect Care: None Current Living Situation: Alone Other Information That Helps Us Care for You: No Feels Safe at Home: Yes Safety Concerns: Feels Safe At This Time Assistive Devices: None Physical Exam Physical Exam: Physical Exam: General: In no acute distress, stated age, chronically ill-apperaing but non- toxic HEENT: Normocephalic, atraumatic, no scleral icterus, pupils around round, symmetrical, and reactive to light, moist mucus membranes, trachea midline, no thyromegaly Chest/Pulm: No respiratory distress, symmetrical chest expansion, crackles noted in the BL lower lung rodriguez with mild expiratory wheezing in the middle and upper lung rodriguez Cardiac: RRR, no murmurs noted Abdomen: Negative for ascites and bruising, normoactive bowel sounds, soft, non-tender to palpation throughout Musculoskeletal: Symmetrical and without signs of acute trauma, upper and lower extremities with full ROM, no atrophy, spasticity, or flaccidity Extremities: Radial, dorsalis pedis, and posterior tibial pulses are intact and symmetrical, no edema noted in the BL LE's Skin: Warm, dry, no rashes , lesions, or scars noted Neuro: Alert and oriented to person, place, month, year, and president, no focal defects, no tremors noted Psych: No acute distress, calm and cooperative during the exam Results & Data Results & Data Vital Signs (Past 12 Hours) Vital Signs Pulse Resp BP Pulse Ox O2 Del Method FiO2 09/12/22 11:05 77 17 111/69 97 09/12/22 11:00 83 17 102/69 96 BiPAP 09/12/22 10:56 87 17 114/58 L 97 BiPAP 09/12/22 10:50 90 22 128/66 93 BiPAP 35 09/12/22 10:45 90 26 H 115/86 94 BiPAP 35 09/12/22 10:40 86 17 128/72 94 BiPAP 35 09/12/22 10:35 118/84 09/12/22 10:30 93 H 22 123/100 94 BiPAP 09/12/22 10:25 93 H 20 146/95 H 95 BiPAP 09/12/22 10:20 96 H 22 152/104 H 98 BiPAP 09/12/22 10:22 99 H 30 H 96 35 09/12/22 10:18 96 H 09/12/22 10:12 92 H 26 H 195/128 H 97 BiPAP Laboratory Results Abnormal lab results 09/12/22 09/12/22 09/12/22 Range/Units 10:26 10:26 10:26 RBC 4.13 L (4.70-6.10) M/uL Hct 41.2 L (42.0-52.0) % MCH 35.1 H (25.0-34.0) pg Weston # (Auto) 0.64 H (0.11-0.59) K/uL D-Dimer (0-500) ug/L FEU Sodium 133 L (136-145) mmol/L Glucose 158 H (70-99(Fasting)) mg/dl Calcium 8.1 L (8.6-10.3) mg/dl Troponin I High Sens 22.4 H (0-20) pg/ml B-Natriuretic Peptide 359 H (0-100) pg/ml Total Protein 5.8 L (6.0-8.3) gm/dl Globulin 1.9 L (2.5-4.0) gm/dl Albumin/Globulin Ratio 2.1 H (0.9-2) 09/12/22 Range/Units 10:26 RBC (4.70-6.10) M/uL Hct (42.0-52.0) % MCH (25.0-34.0) pg Weston # (Auto) (0.11-0.59) K/uL D-Dimer 860 H* (0-500) ug/L FEU Sodium (136-145) mmol/L Glucose (70-99(Fasting)) mg/dl Calcium (8.6-10.3) mg/dl Troponin I High Sens (0-20) pg/ml B-Natriuretic Peptide (0-100) pg/ml Total Protein (6.0-8.3) gm/dl Globulin (2.5-4.0) gm/dl Albumin/Globulin Ratio (0.9-2) Diagnostic Findings Chest X-Ray 09/12/22 10:15 XR chest 1V portable HISTORY: Dyspnea COMPARISON: Chest 05/13/2021. FINDINGS: No pneumothorax. No pleural effusions. The cardiac silhouette is mildly enlarged. No new focal lung consolidations to suggest a pneumonia. There is progressive interstitial/vascular thickening consistent with developing pulmonary edema. IMPRESSION: Mild cardiomegaly with developing pulmonary edema. ACT 112: Negative or not required by law. Electronically signed by: Malik Fatima M.D. 09/12/2022 10:51 AM ECG Additional Comments: Sinus tachycardia with frequent Premature ventricular complexes Biatrial enlargement Nonspecific T wave abnormality Abnormal ECG When compared with ECG of 13-MAY-2021 13:41, Premature ventricular complexes are now Present Vent. rate has increased BY 39 BPM Nonspecific T wave abnormality now evident in Lateral leads Code Status & VTE Plan Code Status Full code VTE Prophylaxis Plan VTE Prophylaxis will be ordered: Yes Supervising Physician Co-Signing Physician Notes I personally saw and examined the patient. I verified all dorado points and agree with Carliot Cota PA-C with the following exceptions and/or additions: 56 year old male presents to the ER with shortness of breath. Prior history of congestive heart failure with previously reduced ejection fraction but now resolved. No fever or chills. O/E A&Ox3, HS RRR, no murmurs, Chest bibasal crackles, Abdo SNT A/P Acute on chronic HFpEF - Lasix 20mg IV BID, I&Os, daily weights, low Na, fluid restricted diet. PG Care Time/CCT Total # of Minutes Spent Total Time Spent with Patient: Total time spent is greater than 50% in coordination of care (as documented) at patient's floor/unit and/or counseling patient: Coding [place] [address] INT INP/OBS CARE 2/55MIN Patient Type Established Medical Decision Making Moderate Complexity Diagnoses Acute respiratory failure with hypoxia J96.01 Acute CHF I50.9 Hypertension I10 Elevated troponin R79.89 Paroxysmal atrial fibrillation with RVR I48.0 Current smoker F17.200 Alcohol use Z72.89
[2022-09-12 11:36] LABS: INR 1.1 (0.9-1.1); Partial Thromboplastin Time 28.1 Seconds (21.0-31.0); Prothrombin Time 11.9 Seconds (9.0-12.0)
[2022-09-12 11:37] LABS: Appearance Urine Clear (Clear); Bilirubin Urine Negative (Negative); Blood Urine Negative (Negative); Color Urine Yellow; Glucose Urine UA Negative (Negative); Ketones Urine Negative (Negative); Leukocyte Esterase Urine Negative (Negative); Nitrite Urine Negative (Negative); Protein Urine Negative (Negative); Specific Gravity Urine 1.007 (1.000-1.030); Urobilinogen Urine Negative (Negative)
[2022-09-12 11:38] LABS: D Dimer 860 ug/L FEU (0-500)
[2022-09-12 11:43] LABS: Adenovirus PCR Not Detected (NotDetected); Bordetella parapertussis PCR Not Detected (NotDetected); Bordetella pertussis PCR Not Detected (NotDetected); Chlamydia pneumoniae PCR Not Detected (NotDetected); Coronavirus 229E PCR Not Detected (NotDetected); Coronavirus CoV-2 (COVID19)PCR Not Detected (NotDetected); Coronavirus HKU1 PCR Not Detected (NotDetected); Coronavirus NL63 PCR Not Detected (NotDetected); Coronavirus OC43PCR Not Detected (NotDetected); Human Metapneumovirus PCR Not Detected (NotDetected); Influenza A PCR Not Detected (NotDetected); Influenza B PCR Not Detected (NotDetected); Mycoplasma pneumoniae PCR Not Detected (NotDetected); Parainfluenza Virus 1 PCR Not Detected (NotDetected); Parainfluenza Virus 2 PCR Not Detected (NotDetected); Parainfluenza Virus 3 PCR Not Detected (NotDetected); Parainfluenza Virus 4 PCR Not Detected (NotDetected); Respiratory Syncytial VirusPCR Not Detected (NotDetected); Rhinovirus/Enterovirus PCR Not Detected (NotDetected)
[2022-09-12] MEDS ORDERED: guaiFENesin 600 MG TABCR PO STA (11:58)
[2022-09-12] MEDS ORDERED: lisinopril 40 MG TAB PO STA (12:02)
[2022-09-12] MEDS ORDERED: NICOTINE 21 MG/24 HR TDSY TD STA (12:06)
--- NOTE | 2022-09-12 13:34 | Electrocardiogram Report ---
Test Reason : Blood Pressure : / mmHG Vent. Rate : 101 BPM Atrial Rate : 101 BPM P-R Int : 144 ms QRS Dur : 086 ms QT Int : 372 ms P-R-T Axes : 076 017 092 degrees QTc Int : 482 ms Sinus tachycardia with frequent Premature ventricular complexes Biatrial enlargement Nonspecific T wave abnormality Abnormal ECG When compared with ECG of 13-MAY-2021 13:41, Premature ventricular complexes are now Present Vent. rate has increased BY 39 BPM Biatrial enlargement is present Confirmed by Rosalio Bonilla ([id number]) on 09/12/2022 1:33:57 PM Referred By: Confirmed By:Rosalio Bonilla
[2022-09-12] MEDS ORDERED: ACETAMINOPHEN 325 MG TAB PO PRN (14:17)
[2022-09-12] MEDS: ALBUT/IPRATROP 3MG/0.5MG NEB 3 ML VIAL NEB SCH ×2 (14:41→19:46)
[2022-09-12] MEDS: FUROSEMIDE INJ 20 MG/2 ML VIAL IV SCH (21:09)
[2022-09-12] MEDS: carvediloL 25 MG TAB PO SCH (21:09)
[2022-09-13 06:25] LABS: Basophils # (auto) 0.07 K/uL (0-0.2); Basophils % (auto) 0.8 %; Eosinophils # (auto) 0.06 K/uL (0-0.50); Eosinophils % (auto) 0.7 %; Hematocrit (blood only) 41.9 % (42.0-52.0); Hemoglobin 14.9 g/dl (14.0-18.0); Immature Granulocytes # (auto) 0.06 K/uL (0.01-0.20); Immature Granulocytes % (auto) 0.7 %; Lymphocytes # (auto) 1.42 K/uL (1.2-3.4); Lymphocytes % (auto) 16.7 %; Mean Corpuscular Hemoglobin 34.9 pg (25.0-34.0); Mean Corpuscular Hgb Conc 35.6 g/dL (32.0-36.0); Mean Corpuscular Volume 98.1 fL (80.0-100.0); Mean Platelet Volume 9.8 fL (9.4-12.4); Monocytes # (auto) 0.99 K/uL (0.11-0.59); Monocytes % (auto) 11.6 %; Neutrophils # (auto) 5.92 K/uL (1.40-6.50); Neutrophils % (auto) 69.5 %; Platelet Count 169 K/uL (130-400); RDW Coefficient of Variation 12.3 % (11.5-14.5); RDW Standard Deviation 44.5 fL (36.4-46.3); Red Blood Count 4.27 M/uL (4.70-6.10); White Blood Count 8.52 K/ul (4.8-10.8)
[2022-09-13 06:44] LABS: BUN Creatinine Ratio 17.9 (10-20); Calcium 8.2 mg/dl (8.6-10.3); Creatinine Clr Calc Pharmacy 106.6 ml/min; Est GFR (African American) 124.5 ml/min; Est GFR (Non-African American) 107.4 ml/min; Magnesium 1.8 mg/dl (1.7-2.4); Potassium 3.4 mmol/L (3.5-5.1)
[2022-09-13 06:51] LABS: INR 1.1 (0.9-1.1); Prothrombin Time 11.5 Seconds (9.0-12.0)
[2022-09-13] MEDS: ALBUT/IPRATROP 3MG/0.5MG NEB 3 ML VIAL NEB SCH ×2 (06:57→10:57)
[2022-09-13] MEDS: carvediloL 25 MG TAB PO SCH (08:37)
[2022-09-13] MEDS: FUROSEMIDE INJ 20 MG/2 ML VIAL IV SCH (08:37)
[2022-09-13] MEDS ORDERED: NICOTINE 21 MG/24 HR TDSY TD SCH (09:00)
[2022-09-13] MEDS ORDERED: RIVAROXABAN 20 MG TAB PO SCH (09:00)
[2022-09-13] MEDS ORDERED: lisinopril 40 MG TAB PO SCH (09:00)
--- NOTE | 2022-09-13 11:50 | Discharge Summary ---
Date of Service September 13, 2022 Admission HPI Per Admitting Provider Edilberto is a 56 year old male with a PMH significant for alcohol abuse with previous alcoholic cardiomyopathy (LVEF of 55-60% as of 2019), left ventricular apical thrombus, paroxysmal afib on xarelto, HTN, and tobacco abuse who presented to the [facility] ED on 09/12/22 via ALS due to SOB, acute hypoxic respiratory failure, and hypertensive emergency. Per the ED staff the patient experienced severe SOB this am and called EMS. EMS found the patient to be hypoxic in the 60's on arrival and hypertensive with systolic BP's in the 200's. He was placed on CPAP and given a total of 3 sublingual nitro tabs x 3 in route. In the ED his work of breathing continued to decline and he was transitioned to Bipap. His BP on arrival was 195/128 so he was placed on a nitroglycerine drip. Labs were significant for a CBC WNL, sodium of 133, initial high sen trop of 22, BNP of 359 Chest xray was read as mild cardiomegaly with developing pulmonary edema. Prior to admission the patient was given 40 mg IV lasix. At the time of the exam the patient was sitting in bed in no acute distress, currently stable on 4L NC. He states that he had been in his normal state of health until approximately 4 days ago. He started to notice a minimally productive cough and increased SOB with exertion. He was using Coricidin due to his hx of HTN. His symptoms continued to progress; this am he was very anxious due to his SOB and cough and believes he started to have a panic attack. Due to his panic attack and worsening respiratory status he called EMS. He currently feels much improved compared to arrival. He denies missing doses of his Xarelto and did take his am dose of Carvedilol prior to calling EMS. He is still smoking 1 PPD and only drinks 1-2 times weekly when watching sports. He denies recent fever, chills, chest pain, increased sputum production or change in sputum color but has been coughing more frequently than his baseline, abd pain, nausea, vomiting, diarrhea, dysuria, hematuria, LE swelling, and recent trauma. He was previously on daily lasix but this was stopped when his LVEF normalized on his last echo. He is a Full Code and would want his brother to make medical decisions for him if he cannot make them himself. Please refer to Dr. Juan's attestation for any changes to the treatment plan Admission Exam Per Admitting Provider Physical Exam: General:In no acute distress, stated age, chronically ill-apperaing but non- toxic HEENT:Normocephalic, atraumatic, no scleral icterus, pupils around round, symmetrical, and reactive to light, moist mucus membranes, trachea midline, no thyromegaly Chest/Pulm:No respiratory distress, symmetrical chest expansion, crackles noted in the BL lower lung rodriguez with mild expiratory wheezing in the middle and upper lung rodriguez Cardiac:RRR, no murmurs noted Abdomen:Negative for ascites and bruising, normoactive bowel sounds, soft, non-tender to palpation throughout Musculoskeletal:Symmetrical and without signs of acute trauma, upper and lower extremities with full ROM, no atrophy, spasticity, or flaccidity Extremities:Radial, dorsalis pedis, and posterior tibial pulses are intact and symmetrical, no edema noted in the BL LE's Skin:Warm, dry, no rashes , lesions, or scars noted Neuro:Alert and oriented to person, place, month, year, and president, no focal defects, no tremors noted Psych:No acute distress, calm and cooperative during the exam Principal Diagnosis Acute on Chronic HFrEF Discharge Exam General: A&Ox3. NAD. Cooperative. HEENT: Atraumatic, normocephalic. Pulm: CTAB A&P. -wheezes, -rales, -rhonchi. Symmetrical chest rise. No increase work of breathing. No respiratory distress. Cardiac: RRR, -mrg. Radial pulses intact and symmetrical. No JVD. No LE edema. Abdominal: soft, non-tender, non-distended, BS x 4 Skin: warm, dry, no rash Discharge Data Allergies Allergy/AdvReac Type Severity Reaction Status Date / Time No Known Allergies Allergy Unverified 10/01/21 14:06 Consultations 09/12/22 11:22 ED Decision to Admit Stat 09/12/22 11:45 ED Decision to Admit Stat Hospital Course (1) Acute on chronic HFrEF (heart failure with reduced ejection fraction): Edilberto is a 56 year old male with a PMH significant for alcohol abuse with previous alcoholic cardiomyopathy (LVEF of 55-60% as of 2019), left ventricular apical thrombus, paroxysmal afib on xarelto, HTN, and tobacco abuse who was admitted to [facility] from 09/12 - 09/13 for acute on chronic HFrEF. Acute on Chronic HFrEF Several days worsening dyspnea, has not been on Lasix for >1 year (per Cardiology) and does not limit sodium intake. Also with h/o alcoholic cardiomyopathy but still consuming >12 beers per week. TTE done on 09/13 showing EF 40% (down from 55-60% in 2020) as well as global hypokinesis and dilated LV --> suspect acute on chronic HFrEF due to dietary sodium indiscretion as well as ongoing alcohol abuse. - TTE as above, and BNP 359 and CXR with pulmonary edema - arrived to hospital in moderate respiratory distress, placed on BiPAP, and rapidly improved and was weaned off of supplemental O2 overnight, after Lasix 60mg IV - suspect panic attack/air hunger had contributed to initial respiratory failure - Diuresed further with next AM IV dose lasix. - continue with Lasix 20mg PO BID on discharge, with plans for close follow up with PCP and Receiving Team Member for further management - continue Carvedilol 25mg PO BID and Lisinopril 40mg PO QAM - consider transition of Lisinopril to Entresto but will defer to Cardiology Hypertensive Urgency - resolved BP 195/128 on arrival in ED. Patient was given Nitro SL x3 via EMS and was started on Nitro gtt - Nitro gtt quickly weaned off as patient rapidly returned to normotensive pressures. Suspect acute CHF as well as contribution from panic attack. - continue home anti-hypertensives as stated above Elevated Troponin hsTroponin peaked at 32.2, without chest pain or ST/T abnormalities on EKG. Suspect demand ischemia in context of above. Paroxysmal Atrial Fibrillation HR ~100 on presentation but quickly improved to 70s after above-mentioned interventions. - continue Carvedilol as above - continue Xarelto Tobacco Use Disorder 1 ppd, ~40 pack year history. - nicotine patch provided during hospitalization - counseled on cessation - pre-contemplative at this time - consider low dose CT chest lung cancer screening as outpatient if has not been done - defer to PCP Alcohol Use Disorder >12 beers per week, and alcoholic cardiomyopathy as stated above. - counseled on cessation - no symptoms of withdrawal while hospitalized - consider Naltrexone initiation as outpatient - defer to PCP (2) Hypertension: (3) Elevated troponin: (4) Paroxysmal atrial fibrillation with RVR: (5) Current smoker: (6) Alcohol use: Total Time Total Time Spent Total Time Spent (In Minutes): 30 minutes Discharge Plan Discharge Items Patient Disposition: Home - Self-Care Reason For Visit: SOB Discharge Diagnosis: Acute on Chronic HFrEF Activity: Per Instructions section Non-emergency contact: Primary Care Provider and Receiving Team Member Call non-emergency contact if: you have any medication questions and your symptoms worsen Follow-up/Referrals: Pushpa Lacey PA-C [Physician Scoreboard Operator] - (please schedule f/u in 2 days ) Manolo Latif MD [Primary Care Provider] - (please schedule f/u within 1 week of discharge) Diet: Heart Healthy and Low Sodium (2gm) Fluids: 1500ml (6 cups) Addtl Attending Provider Instructions: You were admitted to [facility] from 09/12 - 09/13 for difficulty breathing due to an acute heart failure exacerbation. Your symptoms resolved with IV diuretics (Lasix). We did an ultrasound of your heart (ECHO) which unfortunately showed that your ejection fraction (heart pumping ability) worsened to 40%, in comparison to a normal ECHO in 2020. The worsening heart failure is most likely due to your ongoing alcohol use as well as dietary salt intake. 1. Please continue to take Lasix (diuretic pill) 20mg twice daily until you are re-evaluated by your primary care physician and/or Receiving Team Member 2. We will set you up with our [facility] Heart Failure clinic to better treat your heart failure 3. Please try to limit dietary salt intake to a maximum of 2000mg daily - this includes avoidance of canned foods, pre-cooked/prepared foods, cold cuts and table salt. Please limit your fluid intake as well. 4. You should follow up with your primary care physician as well as your Receiving Team Member after discharge. We would like for you to follow up with your PCP within 2-3 days. 5. Please continue to take your regular home medications as scheduled. We hope you continue to feel better. It was a pleasure to help provide your care while you were hospitalized. Pending Studies at Discharge: No Stand-Alone Forms: My [facility], Work/School Release, Smoking Cessation Medications and DC Order Prescriptions: New furosemide [Lasix] 20 mg tablet 20 mg PO BID Qty: 60 1RF Continued carvedilol 25 mg tablet 25 mg PO BID Qty: 180 3RF lisinopril 40 mg tablet 40 mg PO QAM Qty: 90 3RF Xarelto 20 mg tablet 20 mg PO DAILY 90 Days Qty: 90 3RF Discharge Orders: Discharge Order- CHF (Routine); Ordered 09/13/22 Ordered By: Luan Hernandez Admission Data Admit Date/Time: 09/12/22 11:52 Attending Provider: Jessica Reynoso Admit Provider: Manolo Juan Primary Care Provider: Manolo Latif Other Providers: Manolo Juan Other Interventions: Discharge Summary Assessment (RN) Last Done: 09/13/22 12:28 Supervising Physician Co-Signing Physician Notes Resident Physician Supervision Note: I independently interviewed and examined the patient and verified the dorado history and physical, reviewed labs and image studies and agree with resident findings and care plan. Resident Activity Tracking Resident Involvement: Resident Care Provided Care Provided: Adult Hospital Medicine
== END 2022-09-13 15:35 | disposition home or self-care (01) | DRG 291 ==
LOC: ED 10:07 → 2S 11:52 → SUATTDRO 11:52 → 2S 13:12

== ENCOUNTER 2024-01-20 05:04 | Inpatient (IN) ==
[2024-01-20] MEDS: METOPROLOL TARTRATE 1 MG/ML VIAL IV STA ×2 (05:18→05:21)
[2024-01-20] MEDS: METOPROLOL TARTRATE 1 MG/ML VIAL IV ONE (05:19)
--- NOTE | 2024-01-20 05:22 | Emergency Department Note ---
History of Present Illness General Chief complaint: Cardiac Assessment Stated complaint: CANT SLEEP Time Seen by Provider: 01/20/24 05:05 History of Present Illness This 58-year-old male that smokes and drinks alcohol with a history of heart failure presents the ER complaining of not being asleep with cough and racing heart. Patient states he ran out of his meds a month ago and cannot afford them. Patient denies chest pain, fevers, abdominal pain, flulike illness. Home Medications Medication Instructions Recorded Confirmed Type rivaroxaban 20 mg tablet (Xarelto) 20 mg PO DAILY 90 days #90 tabs 01/19/23 08/10/23 Rx furosemide 20 mg tablet (Lasix) 20 mg PO BID #180 tabs 01/22/23 08/10/23 Rx carvedilol 25 mg tablet 25 mg PO BID #180 tabs 02/02/23 08/10/23 Rx sacubitril 24 mg-valsartan 26 mg 1 tab PO BID #60 tabs 07/02/23 08/10/23 Rx tablet (Entresto) azelastine 137 mcg (0.1 %) nasal 1 spray intranasal BID PRN 08/10/23 08/10/23 History spray Allergies Allergy/AdvReac Type Severity Reaction Status Date / Time No Known Allergies Allergy Unverified 08/10/23 15:40 Past Med/Surg History Problem List (Updated 01/20/24 @ 19:11 by Anjum Gacria MD) Respiratory failure Aspiration pneumonia Bilirubinemia Transaminitis NAHUN (acute kidney injury) High anion gap metabolic acidosis Cardiogenic shock Elevated troponin History of alcohol abuse Atrial flutter with rapid ventricular response Atrial fibrillation with rapid ventricular response (Acute) Acute on chronic HFrEF (heart failure with reduced ejection fraction) Acute CHF (Acute) Alcohol use Paroxysmal atrial fibrillation with RVR (Acute) Current smoker Non-ischemic cardiomyopathy Hypertension DVT prophylaxis Shortness of breath Non-ST elevation DE (NSTEMI) (Acute) Dyspnea (Acute) Hypotension (Acute) Acute systolic congestive heart failure, NYHA class 4 Heart valve malfunction (Chronic) CHF (congestive heart failure) (Chronic) Medical History Elevated troponin Acute respiratory failure with hypoxia Hypertensive emergency Elevated troponin Micturition syncope Surgical History No pertinent past surgical history Family History Mother Heart disease Father Coronary heart disease H/O aortic valve replacement Brother Coronary heart disease Social History Smoking Status: Current every day smoker Tobacco Type: Cigarettes Cigarettes Per Day: 20; Second Hand Exposure: No; Do You Dip or Chew Tobacco: No; Preferred Language: Serbian Communication Ability: Effective Target Aircraft Technician Required: No Beliefs That Will Affect Care: None Current Living Situation: Other Current Living Situation Comment: Intubated and sedated Feels Safe at Home: Yes Assistive Devices: None Review of Systems A total of 10 systems reviewed and were otherwise negative Physical Exam Vital Signs Vital Signs - 24 hr 01/20/24 05:18 01/20/24 05:21 01/20/24 05:22 Temperature 36.3 C L Temperature Source Oral Pulse Rate 158 H 150 H 137 H Pulse Rate [Apical] Pulse Rate from SpO2 Sensor Pulse Rhythm Respiratory Rate 20 Respiratory Effort / Characteristics Respiratory Depth Respiratory Pattern Blood Pressure 122/96 115/87 115/87 Blood Pressure [Right Arm] Blood Pressure Mean 96 Blood Pressure Mean [Right Arm] Blood Pressure Position [Right Arm] Pulse Oximetry 96 Oxygen Delivery Method Room Air Sepsis Recent Fever Within 48 Hours No Sepsis New/Unexplained Change in Mental Status N/A Sepsis Action Taken by Nursing No Action Required 01/20/24 05:30 01/20/24 05:30 01/20/24 05:33 Temperature Temperature Source Pulse Rate 133 H Pulse Rate [Apical] Pulse Rate from SpO2 Sensor Pulse Rhythm Irregular Respiratory Rate 22 Respiratory Effort / Characteristics Non-Labored Spontaneous Respiratory Depth Normal Respiratory Pattern Blood Pressure Blood Pressure [Right Arm] Blood Pressure Mean Blood Pressure Mean [Right Arm] Blood Pressure Position [Right Arm] Pulse Oximetry 96 99 Oxygen Delivery Method Room Air Room Air Room Air Sepsis Recent Fever Within 48 Hours Sepsis New/Unexplained Change in Mental Status Sepsis Action Taken by Nursing 01/20/24 05:35 01/20/24 05:35 01/20/24 05:42 Temperature Temperature Source Pulse Rate 129 H 132 H Pulse Rate [Apical] 139 H Pulse Rate from SpO2 Sensor Pulse Rhythm Respiratory Rate 20 Respiratory Effort / Characteristics Non-Labored Spontaneous Respiratory Depth Normal Respiratory Pattern Regular Blood Pressure 103/86 100/60 Blood Pressure [Right Arm] 107/88 Blood Pressure Mean Blood Pressure Mean [Right Arm] 94 Blood Pressure Position [Right Arm] Sitting Pulse Oximetry 99 Oxygen Delivery Method Room Air Sepsis Recent Fever Within 48 Hours Sepsis New/Unexplained Change in Mental Status Sepsis Action Taken by Nursing 01/20/24 06:01 01/20/24 06:30 Temperature Temperature Source Pulse Rate 142 H Pulse Rate [Apical] Pulse Rate from SpO2 Sensor 122 H Pulse Rhythm Respiratory Rate Respiratory Effort / Characteristics Respiratory Depth Respiratory Pattern Blood Pressure 111/82 98/79 L Blood Pressure [Right Arm] Blood Pressure Mean 86 85 Blood Pressure Mean [Right Arm] Blood Pressure Position [Right Arm] Pulse Oximetry 94 Oxygen Delivery Method Room Air Sepsis Recent Fever Within 48 Hours Sepsis New/Unexplained Change in Mental Status Sepsis Action Taken by Nursing VITALS: Vitals are noted on the nurse's note and reviewed by myself. Vital signs tachycardic GENERAL: Pleasant gentleman, in no acute distress, nondiaphoretic, well- developed well-nourished. SKIN: Capillary reflex less than 2 seconds. HEENT: Normocephalic. PERRLA. EOMI. Nares patent. Mucous membranes moist. Neck is supple without nuchal rigidity. HEART: Tachycardic irregularly irregular LUNGS: Clear to auscultation bilaterally without wheezes, rales or rhonchi. No retractions or accessory muscle use. ABDOMEN: Positive bowel sounds x 4. Normal tympanic percussion. Soft, nontender, without masses or organomegaly. Quintana sign negative. No guarding or rebound tenderness. no CVA tenderness MUSCULOSKELETAL: No gross musculoskeletal defects. NEURO: Patient was alert and oriented to person place and time. No focal neurological deficits. Course Administered Medications Heparin Sodium/Dextrose (Heparin Sodium/Dextrose) 25,000 units in 500 mls @ 20 mls/hr IV .Q24H [facility]; Protocol Stop: 02/19/24 06:29 Last Titration: 01/20/24 12:01 Dose: Infused Documented By: ARSENIO Co-signed By: DOC Admin: 01/20/24 06:47 Dose: 1,000 units/hr, 20 mls/hr Documented By: Co-signed By: JAMISON Pantoprazole Sodium 40 mg/ (Syringe) 10 mls @ 5 mls/min IV DAILY@1100 [facility] Stop: 02/19/24 10:59 Last Admin: 01/20/24 13:08 Dose: 5 mls/min Documented By: ARSENIO Piperacillin Sod/Tazobactam Sod (Zosyn) 4.5 gm in 100 mls @ 25 mls/hr IV Q8H [facility] Stop: 01/27/24 15:59 Last Admin: 01/21/24 00:16 Dose: 25 mls/hr Documented By: Infusion: 01/20/24 21:00 Dose: Infused Documented By: Admin: 01/20/24 16:21 Dose: 25 mls/hr Documented By: WS Vasopressin 20 units/ Sodium (Chloride) 101 mls @ 0 mls/hr IV .Q0M [facility] Stop: 02/19/24 10:29 Last Infusion: 01/20/24 19:13 Dose: 0 unit/min, 0 mls/hr Documented By: KASEY Co-signed By: ARSENIO Infusion: 01/20/24 12:00 Dose: 0 unit/min, 0 mls/hr Documented By: ARSENIO Co-signed By: AIDEN Admin: 01/20/24 10:42 Dose: 0.04 unit/min, 12.1 mls/hr Documented By: ARSENIO Co-signed By: AMB Propofol (Diprivan) 1,000 mg in 100 mls @ 9.24 mls/hr IV .[id number] [facility]; Protocol Stop: 01/23/24 11:59 Last Titration: 01/20/24 19:13 Dose: 25 mcg/kg/min, 9.2 mls/hr Documented By: KASEY Co-signed By: ARSENIO Admin: 01/20/24 17:09 Dose: 25 mcg/kg/min, 9.2 mls/hr Documented By: ARSENIO Co-signed By: AIDEN Titration: 01/20/24 17:09 Dose: Infused Documented By: ARSENIO Co-signed By: AIDEN Titration: 01/20/24 15:00 Dose: 25 mcg/kg/min, 9.2 mls/hr Documented By: Titration: 01/20/24 12:45 Dose: 30 mcg/kg/min, 11.1 mls/hr Documented By: Titration: 01/20/24 12:30 Dose: 45 mcg/kg/min, 16.6 mls/hr Documented By: Admin: 01/20/24 12:07 Dose: 50 mcg/kg/min, 18.5 mls/hr Documented By: WS Co-signed By: AMB Fentanyl Citrate (Fentanyl Citrate) 2,500 mcg in 250 mls @ 2.5 mls/hr IV .Q96H [facility]; Protocol Stop: 02/03/24 11:59 Last Titration: 01/20/24 19:13 Dose: 25 mcg/hr, 2.5 mls/hr Documented By: JT Co-signed By: WS Titration: 01/20/24 14:00 Dose: 25 mcg/hr, 2.5 mls/hr Documented By: WS Co-signed By: AMB Titration: 01/20/24 13:00 Dose: 50 mcg/hr, 5 mls/hr Documented By: WS Co-signed By: AMB Admin: 01/20/24 12:06 Dose: 75 mcg/hr, 7.5 mls/hr Documented By: WS Co-signed By: AMB Epinephrine HCl () 4 mg in 254 mls @ 4.694 mls/hr IV .Q24H [facility]; Protocol Stop: 02/19/24 11:59 Last Titration: 01/20/24 21:05 Dose: 0.06 mcg/kg/min, 14.1 mls/hr Documented By: Titration: 01/20/24 19:13 Dose: 0.04 mcg/kg/min, 9.4 mls/hr Documented By: JT Co-signed By: WS Titration: 01/20/24 12:45 Dose: 0.04 mcg/kg/min, 9.4 mls/hr Documented By: Titration: 01/20/24 12:15 Dose: 0.03 mcg/kg/min, 7 mls/hr Documented By: Admin: 01/20/24 12:05 Dose: 0.02 mcg/kg/min, 4.7 mls/hr Documented By: WS Co-signed By: AMB Norepinephrine Bitartrate (Levophed/D5w) 4 mg in 250 mls @ 138.6 mls/hr IV .Q1H49M [facility]; Protocol Stop: 02/19/24 14:44 Last Titration: 01/20/24 19:13 Dose: 0 mcg/kg/min, 0 mls/hr Documented By: JMichaela Co-signed By: WS Titration: 01/20/24 15:11 Dose: 0 mcg/kg/min, 0 mls/hr Documented By: Titration: 01/20/24 15:10 Dose: 0 mcg/kg/min, 0 mls/hr Documented By: Titration: 01/20/24 13:15 Dose: 0.02 mcg/kg/min, 4.6 mls/hr Documented By: Titration: 01/20/24 12:45 Dose: 0.04 mcg/kg/min, 9.2 mls/hr Documented By: Titration: 01/20/24 12:30 Dose: 0.06 mcg/kg/min, 13.9 mls/hr Documented By: Titration: 01/20/24 12:15 Dose: 0.08 mcg/kg/min, 18.5 mls/hr Documented By: Titration: 01/20/24 12:00 Dose: 0.1 mcg/kg/min, 23.1 mls/hr Documented By: Titration: 01/20/24 11:55 Dose: 0.2 mcg/kg/min, 46.2 mls/hr Documented By: Titration: 01/20/24 11:50 Dose: 0.3 mcg/kg/min, 69.3 mls/hr Documented By: Titration: 01/20/24 11:45 Dose: 0.4 mcg/kg/min, 92.4 mls/hr Documented By: Titration: 01/20/24 11:40 Dose: 0.5 mcg/kg/min, 115.5 mls/hr Documented By: Admin: 01/20/24 11:35 Dose: 0.6 mcg/kg/min, 138.6 mls/hr Documented By: WS Co-signed By: AIDEN Titration: 01/20/24 11:35 Dose: Infused Documented By: Titration: 01/20/24 11:35 Dose: Infused Documented By: WS Co-signed By: AIDEN Admin: 01/20/24 10:30 Dose: 1 mcg/kg/min, 231 mls/hr Documented By: WS Co-signed By: AIDEN Potassium Chloride (K Hoang / Wtr) 20 meq in 100 mls @ 50 mls/hr IV ONE ONE Stop: 01/21/24 01:59 Last Admin: 01/21/24 00:16 Dose: 50 mls/hr Documented By: KASEY Co-signed By: RIYA Insulin Aspart (Insulin Aspart Per Unit Charge) 0 units SC Q6 [facility] Stop: 02/19/24 13:49 Last Admin: 01/21/24 00:16 Dose: 1 units Documented By: KASEY Co-signed By: RIYA Admin: 01/20/24 18:48 Dose: 2 units Documented By: ARSENIO Co-signed By: AIDEN Admin: 01/20/24 14:10 Dose: 2 units Documented By: ARSENIO Co-signed By: DOC Watterscellmarcus (Remove Nicoderm Patch) 1 each N/A DAILY@0859 [facility] Stop: 02/19/24 08:58 Last Admin: 01/20/24 10:42 Dose: 1 each Documented By: ARSENIO Hurd (Icu Electrolyte Replacement Protocol) 1 each N/A BID@,18 [facility]; Protocol Stop: 01/27/24 17:59 Last Admin: 01/20/24 21:07 Dose: 1 each Documented By: KASEY Discontinued Medications Amiodarone HCl/Dextrose (Amiodarone 360mg / 200ml D5w) Confirm Administered Dose 360 mg IV .STK-MED ONE Stop: 01/20/24 08:27 Last Admin: 01/20/24 08:30 Dose: Not Given Documented By: SYDNIE Amiodarone HCl/Dextrose (Amiodarone 150mg / 100ml D5w) Confirm Administered Dose 150 mg IV .STK-MED ONE Stop: 01/20/24 08:27 Last Admin: 01/20/24 08:30 Dose: Not Given Documented By: SYDNIE Carvedilol (Carvedilol 6.25 Mg Tab) 6.25 mg PO BIDM [facility] Stop: 02/19/24 08:59 Last Admin: 01/20/24 10:41 Dose: Not Given Documented By: ARSENIO Epinephrine HCl (Epinephrine Inj 1 Mg/Ml Amp) Confirm Administered Dose 2 mg .ROUTE .STK-MED ONE Stop: 01/20/24 10:24 Last Admin: 01/20/24 12:31 Dose: Not Given Documented By: ARSENIO Fentanyl Citrate (Fentanyl Citrate 2,500 Mcg/250 Ml Bag) Confirm Administered Dose 2,500 mcg IV .STK-MED ONE Stop: 01/20/24 09:46 Last Admin: 01/20/24 10:39 Dose: Not Given Documented By: ARSENIO Furosemide (Furosemide 40 Mg/4 Ml Vial) Confirm Administered Dose 40 mg IV .STK- MED ONE Stop: 01/20/24 08:27 Last Admin: 01/20/24 08:30 Dose: Not Given Documented By: SYDNIE Furosemide (Furosemide 40 Mg/4 Ml Vial) 40 mg IV ONE ONE Stop: 01/20/24 08:46 Last Admin: 01/20/24 08:40 Dose: 40 mg Documented By: SYDNIE Heparin Sodium/Dextrose (Heparin Iv Adult Wt-Based Low-Dose *No* Initial Bolus Protocol) 1 each IV ONE STA; Protocol Stop: 01/20/24 06:13 Last Admin: 01/20/24 06:28 Dose: 1 each Documented By: Sodium Chloride (Nss) 250 mls @ 999 mls/hr IV .Q16M ONE Stop: 01/20/24 05:38 Last Infusion: 01/20/24 06:10 Dose: Infused Documented By: Admin: 01/20/24 05:35 Dose: 999 mls/hr Documented By: Multivitamins 10 ml/ Thiamine HCl 100 mg/ Folic Acid 1 mg/Sodium Chloride 1,011.2 mls @ 500 mls/hr IV .Q2H2M ONE Stop: 01/20/24 07:30 Last Infusion: 01/20/24 10:40 Dose: Infused Documented By: Admin: 01/20/24 06:17 Dose: 500 mls/hr Documented By: Magnesium Sulfate/Dextrose (Magnesium Sulfate / D5w) 1 gm in 100 mls @ 100 mls/hr IV Q1H [facility] Stop: 01/20/24 08:11 Last Infusion: 01/20/24 08:19 Dose: Infused Documented By: Admin: 01/20/24 07:26 Dose: 100 mls/hr Documented By: Infusion: 01/20/24 07:25 Dose: Infused Documented By: Admin: 01/20/24 06:28 Dose: 100 mls/hr Documented By: Digoxin 250 mcg/ Syringe 10 mls @ 2 mls/min IV NOW STA Stop: 01/20/24 06:23 Last Admin: 01/20/24 06:57 Dose: 2 mls/min Documented By: Amiodarone HCl/Dextrose (Nexterone / D5w) 150 mg in 100 mls @ 600 mls/hr IV NOW STA Stop: 01/20/24 08:36 Last Infusion: 01/20/24 10:41 Dose: Infused Documented By: ARSENIO Co-signed By: AIDEN Admin: 01/20/24 08:34 Dose: 600 mls/hr Documented By: SYDNIE Co-signed By: ALEISHA Amiodarone HCl/Dextrose (Nexterone / D5w) 360 mg in 200 mls @ 33.333 mls/hr IV ONE ONE Stop: 01/20/24 14:37 Last Infusion: 01/20/24 10:00 Dose: Infused Documented By: ARSENIO Co-signed By: AIDEN Admin: 01/20/24 08:34 Dose: 1 mg/min, 33.3 mls/hr Documented By: SYDNIE Co-signed By: ALEISHA Amiodarone HCl/Dextrose (Nexterone / D5w) 360 mg in 200 mls @ 16.667 mls/hr IV .Q12H [facility] Stop: 02/19/24 14:29 Last Admin: 01/20/24 14:43 Dose: Not Given Documented By: ARSENIO Digoxin 250 mcg/ Syringe 10 mls @ 2 mls/min IV NOW STA Stop: 01/20/24 09:03 Last Admin: 01/20/24 13:26 Dose: Not Given Documented By: ARSENIO Magnesium Sulfate/Dextrose (Magnesium Sulfate / D5w) 1 gm in 100 mls @ 50 mls/hr IV NOW ONE Stop: 01/20/24 11:59 Last Infusion: 01/20/24 13:47 Dose: Infused Documented By: Admin: 01/20/24 11:23 Dose: 50 mls/hr Documented By: ARSENIO Piperacillin Sod/Tazobactam Sod (Zosyn) 4.5 gm in 100 mls @ 25 mls/hr IV NOW ONE Stop: 01/20/24 14:29 Last Infusion: 01/20/24 15:31 Dose: Infused Documented By: Admin: 01/20/24 11:26 Dose: 25 mls/hr Documented By: ARSENIO Potassium Chloride (K Hoang / Wtr) 20 meq in 100 mls @ 50 mls/hr IV ONE ONE Stop: 01/20/24 23:29 Last Infusion: 01/21/24 01:30 Dose: Infused Documented By: KASEY Co-signed By: JIGNA Admin: 01/20/24 22:01 Dose: 50 mls/hr Documented By: KASEY Co-signed By: JIGNA Magnesium Sulfate/Dextrose (Magnesium Sulfate / D5w) 1 gm in 100 mls @ 50 mls/hr IV Q2H [facility] Stop: 01/21/24 01:14 Last Admin: 01/20/24 23:45 Dose: 50 mls/hr Documented By: Infusion: 01/20/24 23:45 Dose: Infused Documented By: Admin: 01/20/24 22:01 Dose: 50 mls/hr Documented By: KASEY Levetiracetam (Levetiracetam 500 Mg/5 Ml Vial) 1,000 mg IV NOW STA Stop: 01/20/24 09:56 Last Admin: 01/20/24 10:17 Dose: 1,000 mg Documented By: ARSENIO Lorazepam (Lorazepam 1 Mg/1 Ml Syr Ed Inj Use) 1 mg IV ONE STA Stop: 01/20/24 05:33 Last Admin: 01/20/24 05:42 Dose: 1 mg Documented By: Lorazepam (Lorazepam 1 Mg/1 Ml Syr Ed Inj Use) Confirm Administered Dose 1 mg .ROUTE .STK-MED ONE Stop: 01/20/24 08:51 Last Admin: 01/20/24 09:41 Dose: 1 mg Documented By: SYDNIE Metoprolol Tartrate (Metoprolol Tartrate 1 Mg/Ml Vial) 5 mg IV NOW STA Stop: 01/20/24 05:11 Last Admin: 01/20/24 05:18 Dose: 5 mg Documented By: Metoprolol Tartrate (Metoprolol Tartrate 1 Mg/Ml Vial) Confirm Administered Dose 5 mg IV .STK-MED ONE Stop: 01/20/24 05:13 Last Admin: 01/20/24 05:19 Dose: Not Given Documented By: Metoprolol Tartrate (Metoprolol Tartrate 1 Mg/Ml Vial) 5 mg IV NOW STA Stop: 01/20/24 05:19 Last Admin: 01/20/24 05:21 Dose: 5 mg Documented By: Miscellaneous (Rapid Sequence Induction Bag) Confirm Administered Dose 1 each N/A .STK-MED ONE Stop: 01/20/24 08:54 Last Admin: 01/20/24 10:40 Dose: Not Given Documented By: ARSENIO Miscellaneous (Icu Protocol For Hyperglycemia) 1 each N/A ACHS [facility] Stop: 01/22/24 11:29 Last Admin: 01/20/24 13:46 Dose: 1 each Documented By: ARSENIO Nicotine (Nicotine 21 Mg/24 Hr Tdsy) 1 patch TD NOW STA Stop: 01/20/24 05:11 Last Admin: 01/20/24 05:42 Dose: 1 patch Documented By: Norepinephrine Bitartrate (Norepinephrine/D5w 4 Mg/250 Ml) Confirm Administered Dose 4 mg IV .STK-MED ONE Stop: 01/20/24 13:35 Last Admin: 01/20/24 14:42 Dose: Not Given Documented By: ARSENIO Propofol (Propofol Iv Emulsion 10 Mg/Ml 100 Ml Vial) Confirm Administered Dose 1,000 mg IV .STK-MED ONE Stop: 01/20/24 09:46 Last Admin: 01/20/24 10:40 Dose: Not Given Documented By: ARSENIO Critical Care Time Critical Care Time: Yes Total Critical Care Time: 35 I have personally spent 35 minutes of critical care time in the direct management of this patient. This includes bedside care, interpretation of diagnostic studies, and testing, discussion with consultants, patient, and family members, and other required patient management activities. This 35 minutes is in excess of all separately billable procedures. Medical Decision Making Medical Records Attestation: I reviewed the patient's medical records. Home Medications Current Medication List: was personally reviewed by nj Laboratory Data Attestation: I reviewed the patient's lab results. 01/20/24 19:27 01/20/24 19:27 Lab Results 01/20/24 01/20/24 01/20/24 Range/Units 05:15 05:20 06:13 WBC 6.31 (4.8-10.8) K/ul RBC 4.55 L (4.70-6.10) M/uL Hgb 16.0 (14.0-18.0) g/dl POC Hgb 16.7 (14.0-18.0) g/dl Hct 45.0 (42.0-52.0) % POC Hct 49 (42-52) % MCV 98.9 (80.0-100.0) fL MCH 35.2 H (25.0-34.0) pg MCHC 35.6 (32.0-36.0) g/dL RDW Std Deviation 48.7 H (36.4-46.3) fL RDW Coeff of Britney 13.4 (11.5-14.5) % Plt Count 108 L (130-400) K/uL MPV 10.1 (9.4-12.4) fL Immature Gran % (Auto) 0.5 % Neut % (Auto) 60.9 % Lymph % (Auto) 23.6 % Terry % (Auto) 13.6 % Eos % (Auto) 0.3 % Baso % (Auto) 1.1 % Neut # (Auto) 3.84 (1.40-6.50) K/uL Lymph # (Auto) 1.49 (1.20-3.40) K/uL Terry # (Auto) 0.86 H (0.11-0.59) K/uL Eos # (Auto) 0.02 (0.00-0.50) K/uL Baso # (Auto) 0.07 (0.00-0.20) K/uL Immature Gran # (Auto) 0.03 (0.01-0.20) K/uL PT 12.5 H (9.0-12.0) Seconds INR 1.2 H (0.9-1.1) APTT 27 (21-31) Seconds PTT Ratio 1.0 POC Sodium 129 L (135-144) mmol/L Sodium 131 L (136-145) mmol/L POC Potassium 4.7 (3.3-5.0) mmol/L Potassium 4.5 (3.5-5.1) mmol/L POC Chloride 95 L (101-112) mmol/L Chloride 94 L (98-107) mmol/L Carbon Dioxide 21 (21-32) mmol/L POC Total CO2 21 L (24-31) mmol/L Anion Gap 16 H (3-11) POC Anion Gap 18.0 (16-25) mmol/L POC BUN 12 (7-18) mg/dl BUN 11 (6-23) mg/dl Creatinine 0.88 (0.6-1.4) mg/dl POC Creatinine 0.8 (0.6-1.3) mg/dl Est Cr Clr Drug Dosing 117.9 ml/min Est GFR ( Amer) 109.7 ml/min Est GFR (Non-Af Amer) 94.7 ml/min BUN/Creatinine Ratio 12.5 (10-20) Glucose 121 H (70-99(Fasting)) mg/dl POC Glucose (other) 123 H (70-99) mg/dl Osmolality 274 L (280-300) mOsm/kg Calcium 9.9 (8.6-10.3) mg/dl POC Ioniz Calcium Pat 1.11 L (1.12-1.32) mmol/l Magnesium 1.7 (1.7-2.4) mg/dl Total Bilirubin 3.1 H (0.2-1.0) mg/dl AST 108 H (13-39) U/L ALT 106 H (7-52) U/L Alkaline Phosphatase 85 (34-104) U/L Troponin I High Sens 102.1 H* (0-20) pg/ml B-Natriuretic Peptide Cancelled Total Protein 6.9 (6.0-8.3) gm/dl Albumin 4.6 (3.4-5.0) gm/dl Globulin 2.3 L (2.5-4.0) gm/dl Albumin/Globulin Ratio 2.0 (0.9-2) Lipase 38 (11-82) U/L TSH 3.594 (0.300-4.500) uIu/ml Ethyl Alcohol mg/dL < 10.0 (<10.0) mg/dl Imaging Data Attestation: I personally reviewed and interpreted this imaging study as follows: MDM Narrative Prior records/ancillary studies reviewed. Triage Nursing notes reviewed. Additional history obtained from the EMS. The patient's history was concerning for racing heart and respiratory difficulties. Differential diagnosis: Etiologies such as A-fib, a flutter, infections, reactive airway disease, pneumonia, pneumothorax, COPD, CHF, cardiac ischemia, pulmonary embolism, musculoskeletal, gastrointestinal, as well as others were entertained. Physical examination: As above. ER treatment provided: An order was placed for continuous cardiac monitoring. The monitor shows a rate of 60-200 with a A-fib rhythm per my interpretation. 2 lines were placed, Lopressor was ordered x 2, banana bag Magnesium, heparin and digoxin were ordered per hospitalist request On reassessment the patient felt better. Diagnostic interpretation by me: The electrocardiogram was ordered for SOB. ECG: Irregularly irregular with frequent PVCs, ventricular rate of 170. Impression A-fib with RVR independently interpreted by myself The labs Independently Interpreted by myself revealed hyponatremia and osmolarity levels were ordered Elevated troponin most likely from rapid A-fib Imaging studies: Chest x-ray with mild pulmonary congestion without pneumothorax per my independent interpretation Consultation: A consultation was placed with the hospitalist. The case was discussed and diagnostics were reviewed. The patient was evaluated in the ER for further treatment. Medicine recommends magnesium, digoxin and heparin low-dose without bolus. This appears to be consistent with A-fib with RVR and A flutter. 2 lines were placed. Patient was given Lopressor with this history of heart failure and being out of his meds for the month. Patient has not been eating so banana bag was ordered. Chest x-ray shows mild pulmonary congestion. Pulse ox was stable. Medicine was consulted case discussed. He will be admitted to the medical service.. By the evaluation outlined above emergent etiologies such as pulmonary embolism, reactive airway disease, pneumonia, pneumothorax, musculoskeletal, serious bacterial infections, as well as others were deemed relatively unlikely. The pt informed about the findings as listed above. All questions were answered and pleased with the treatment. The chart was completed utilizing [employer] Speech voice recognition software. Grammatical errors, random word insertions, pronoun errors, and incomplete sentences are an occassional consequence of this system due to software limitations, ambient noise, and hardware issues. Any formal questions or concerns about the content, text, or information contained within the body of this dictation should be directly addressed to the physician human resources executive assistant for clarification. Impression & Plan Atrial fibrillation with rapid ventricular response Discharge Plan Visit Data Chief Complaint: Cardiac Assessment Stated Complaint: CANT SLEEP ED Provider: Rayshawn Webb ED Midlevel Provider: Radha Inman Discharge Problem: Atrial fibrillation with rapid ventricular response Patient Disposition: Admitted As Inpatient Condition: Fair Discharge Instructions Interventions: ED Discharge Assessment Last Done: 01/20/24 08:51
[2024-01-20 05:33] LABS: iSTAT Creatinine 0.8 mg/dl (0.6-1.3); iSTAT Hemoglobin 16.7 g/dl (14.0-18.0); iSTAT Ionized Calcium 1.11 mmol/l (1.12-1.32); iSTAT Potassium 4.7 mmol/L (3.3-5.0)
[2024-01-20] MEDS: SODIUM CHLORIDE 0.9% 250 ML IV ONE (05:35)
[2024-01-20] MEDS: LORazepam 1 MG/1 ML SYR ED Inj Use IV STA (05:42)
[2024-01-20] MEDS: NICOTINE 21 MG/24 HR TDSY TD STA (05:42)
[2024-01-20 05:51] LABS: Albumin Level 4.6 gm/dl (3.4-5.0); BUN Creatinine Ratio 12.5 (10-20); Bilirubin,Total 3.1 mg/dl (0.2-1.0); Calcium 9.9 mg/dl (8.6-10.3); Creatinine Clr Calc Pharmacy 117.9 ml/min; Est GFR (African American) 109.7 ml/min; Est GFR (Non-African American) 94.7 ml/min; Globulin 2.3 gm/dl (2.5-4.0); Magnesium 1.7 mg/dl (1.7-2.4); Potassium 4.5 mmol/L (3.5-5.1); Total Protein 6.9 gm/dl (6.0-8.3)
[2024-01-20 05:52] LABS: Basophils # (auto) 0.07 K/uL (0.00-0.20); Basophils % (auto) 1.1 %; Eosinophils # (auto) 0.02 K/uL (0.00-0.50); Eosinophils % (auto) 0.3 %; Immature Granulocytes # (auto) 0.03 K/uL (0.01-0.20); Immature Granulocytes % (auto) 0.5 %; Lymphocytes # (auto) 1.49 K/uL (1.20-3.40); Lymphocytes % (auto) 23.6 %; Mean Corpuscular Hemoglobin 35.2 pg (25.0-34.0); Mean Corpuscular Hgb Conc 35.6 g/dL (32.0-36.0); Mean Corpuscular Volume 98.9 fL (80.0-100.0); Mean Platelet Volume 10.1 fL (9.4-12.4); Monocytes # (auto) 0.86 K/uL (0.11-0.59); Monocytes % (auto) 13.6 %; Neutrophils # (auto) 3.84 K/uL (1.40-6.50); Neutrophils % (auto) 60.9 %; Platelet Count 108 K/uL (130-400); RDW Coefficient of Variation 13.4 % (11.5-14.5); RDW Standard Deviation 48.7 fL (36.4-46.3); Red Blood Count 4.55 M/uL (4.70-6.10); White Blood Count 6.31 K/ul (4.8-10.8)
[2024-01-20 06:06] LABS: Thyroid Stimulating Hormone 3.594 uIu/ml (0.300-4.500)
[2024-01-20 06:10] LABS: Troponin I High Sensitivity 102.1 pg/ml (0-20)
[2024-01-20 06:15] LABS: INR 1.2 (0.9-1.1); Partial Thromboplastin Time 27 Seconds (21-31); Prothrombin Time 12.5 Seconds (9.0-12.0)
[2024-01-20] MEDS: MULTI-VITAMIN INFUSION 10 ML, THIAMINE HCL 100 MG, FOLIC ACID 1 MG in SODIUM CHLORIDE 0... IV ONE (06:17)
[2024-01-20] MEDS: MAGNESIUM SULFATE / D5W 1 GM/100 ML BAG IV SCH ×2 (06:28→22:01)
[2024-01-20] MEDS: Heparin IV Adult Wt-Based Low-Dose *NO* INITIAL Bolus Protocol IV STA (06:28)
[2024-01-20] MEDS: HEPARIN SODIUM/DEXTROSE 25,000 UNITS/500 ML BAG IV SCH (06:47)
--- NOTE | 2024-01-20 06:55 | History & Physical Report ---
Date of Service January 20, 2024 Assessment & Plan (1) Atrial flutter with rapid ventricular response: (2) Atrial fibrillation with rapid ventricular response: (3) Elevated troponin: (4) Non-ischemic cardiomyopathy: (5) Paroxysmal atrial fibrillation with RVR: (6) History of alcohol abuse: (7) Hypertension: Plan Elevated troponin/atrial flutter with RVR/history of paroxysmal atrial fibrillation and A-fib with RVR/hypertension/nonischemic cardiomyopathy- The patient will be admitted to telemetry for serial cardiac enzymes, serial EKG's, cardiac rhythm monitoring and a 2-D echocardiogram with Dopplers. Most recent echo from 09/13/2022 with ejection fraction 40% EKG shows atrial flutter with RVR at 165 Troponin 102.1, likely secondary to increased heart rate. Follow serially Patient was given Lopressor 5 mg IV x 2 without significant improvement in heart rate Send systolic blood pressures in the low 100s, will do a trial of digoxin 0.25 mg IV x 1 now Give magnesium sulfate 2 g IV for magnesium level 1.7 He was given normal saline to 50 mL bolus from the ED Placed on NSS at 60 mL/h x 1 L Patient has been without his medications for 2 months due to not being able to afford them Hold on restarting Xarelto, and placed on heparin low-dose without bolus, being careful to watch his platelets, as they are presently low at 108 Previously on carvedilol 25 mg p.o. twice daily, will try restarting at 6.25 mg p.o. twice daily Hold Entresto and furosemide Consulting cardiology Abnormal LFTs/history of alcohol abuse- Patient reports that his last alcohol intake was 2 months ago Total bilirubin 3.1, AST 108, ALT 106 are all new high findings Receiving a banana bag in the ED, then IV fluids as noted above Repeat laboratories daily Order CT of the abdomen and pelvis without contrast to assess for possible cirrhosis Patient reports he did not had alcohol intake for least couple months Have asked the ED to check an alcohol level It can be determined later on in the day if patient needs to be on the LISETTE 2 S protocol Tobacco abuse- Continue NicoDerm 21 mg patch History of Present Illness Chief Complaint: The patient presents to the emergency department with complaint of increased heart rate since Wednesday, 2 days ago, and presents to the emergency department early this morning due to inability to sleep. Primary Care Provider: Manolo Latif MD The patient is a 58-year-old male with a past medical history including atrial fibrillation, chronic HFrEF, paroxysmal atrial fibrillation with RVR, nonischemic cardiomyopathy, hypertension, NSTEMI, allergic rhinitis and chronic anticoagulation. The patient reports that he ran out of all his medications about 2 months ago due to not being able to afford them, has not been eating much also being not able to afford food, and needs to work on getting food stamps again. He presents to the emergency department with 2 days of persistent elevated heart rate, but EKG in emergency department showing atrial flutter with RVR at 165 bpm. He was given Lopressor 5 mg IV x 2 with no significant change in heart rate. I have advised given magnesium sulfate 2 g IV for a mag level of 1.7, and a trial digoxin 0.25 IV now, due to systolic blood pressure in the low 100s, and heart rate 140-160. Allergies Allergy/AdvReac Type Severity Reaction Status Date / Time No Known Allergies Allergy Unverified 08/10/23 15:40 Home Medications Medication Instructions Recorded Confirmed Type rivaroxaban 20 mg tablet (Xarelto) 20 mg PO DAILY 90 days #90 tabs 01/19/23 08/10/23 Rx furosemide 20 mg tablet (Lasix) 20 mg PO BID #180 tabs 01/22/23 08/10/23 Rx carvedilol 25 mg tablet 25 mg PO BID #180 tabs 02/02/23 08/10/23 Rx sacubitril 24 mg-valsartan 26 mg 1 tab PO BID #60 tabs 07/02/23 08/10/23 Rx tablet (Entresto) azelastine 137 mcg (0.1 %) nasal 1 spray intranasal BID PRN 08/10/23 08/10/23 History spray Past Med/Surg History Problem List (Updated 01/20/24 @ 06:47 by Ba Britton MD) Elevated troponin History of alcohol abuse Atrial flutter with rapid ventricular response Atrial fibrillation with rapid ventricular response (Acute) Acute on chronic HFrEF (heart failure with reduced ejection fraction) Acute CHF (Acute) Alcohol use Paroxysmal atrial fibrillation with RVR (Acute) Current smoker Non-ischemic cardiomyopathy Hypertension DVT prophylaxis Shortness of breath Non-ST elevation CT (NSTEMI) (Acute) Dyspnea (Acute) Hypotension (Acute) Acute systolic congestive heart failure, NYHA class 4 Heart valve malfunction (Chronic) CHF (congestive heart failure) (Chronic) Medical History Elevated troponin Acute respiratory failure with hypoxia Hypertensive emergency Elevated troponin Micturition syncope Surgical History No pertinent past surgical history Family History Mother Heart disease Father Coronary heart disease H/O aortic valve replacement Brother Coronary heart disease Social History Smoking Status: Former smoker Tobacco Type: Cigarettes Cigarettes Per Day: 20; Second Hand Exposure: No; Do You Dip or Chew Tobacco: No; Hx Alcohol Use: Yes Alcohol type: beer Hx Substance Use: No Preferred Language: Korean Communication Ability: Effective Product Steward Required: No Beliefs That Will Affect Care: None Current Living Situation: Alone Feels Safe at Home: Yes Assistive Devices: None Review of Systems Review of Systems: The patient denies cough, lower extremity swelling, sore throat, fevers, chills, sweats, weight change, nausea, vomiting, diarrhea , constipation, abdominal pain, pelvic pain, blood in urine or stool, dysuria, urinary frequency or urgency, lightheadedness, dizziness, headache, memory loss, loss of consciousness, rash, abnormal bruising or bleeding, imbalance, focal weakness, numbness or tingling in arms or legs, generalized arthralgias or myalgias, back or neck pain, or night sweats. The review of systems is otherwise negative other than for that already noted above, and at least 10 systems have been reviewed. Physical Exam Physical Exam: The patient is awake, alert and oriented 3, well developed and well nourished, normocephalic and atraumatic, lying in bed and in no acute distress. HEENT--PERRL, EOMI, mucous membranes and oropharynx dry. Neck--supple. No JVD. No bruits. Thyroid normal, trachea midline, no adenopathy. Heart--tachycardic with premature contractions. No murmurs, rubs or gallops. Lungs--decreased breath sounds throughout. No respiratory distress, no accessory muscle use. Abdomen--normal bowel sounds and soft. Nontender. Nondistended, no hernias or masses, no organomegaly. Extremities--no cyanosis or clubbing. No edema. Dermatologic--normal skin turgor, normal color, no abnormal lymph nodes, no rash. Neurologic--cranial nerves II through XII grossly intact. Rheumatologic--normal range of motion. Psychiatric--normal affect. Results & Data Results & Data Vital Signs (Past 12 Hours) Vital Signs Temp Pulse Pulse Resp BP BP Pulse Ox 01/20/24 06:30 142 H 98/79 L 94 01/20/24 06:01 111/82 01/20/24 05:42 139 H 20 107/88 99 01/20/24 05:35 132 H 100/60 01/20/24 05:35 129 H 103/86 01/20/24 05:33 99 01/20/24 05:30 01/20/24 05:30 133 H 22 96 01/20/24 05:22 36.3 C L 137 H 20 115/87 96 01/20/24 05:21 150 H 115/87 01/20/24 05:18 158 H 122/96 O2 Del Method 01/20/24 06:30 Room Air 01/20/24 06:01 01/20/24 05:42 Room Air 01/20/24 05:35 01/20/24 05:35 01/20/24 05:33 Room Air 01/20/24 05:30 Room Air 01/20/24 05:30 Room Air 01/20/24 05:22 Room Air 01/20/24 05:21 01/20/24 05:18 Laboratory Results Laboratory Results WBC 6.31 K/ul (4.8-10.8) 01/20/24 05:15 RBC 4.55 M/uL (4.70-6.10) L 01/20/24 05:15 Hgb 16.0 g/dl (14.0-18.0) 01/20/24 05:15 POC Hgb 16.7 g/dl (14.0-18.0) 01/20/24 05:20 Hct 45.0 % (42.0-52.0) 01/20/24 05:15 POC Hct 49 % (42-52) 01/20/24 05:20 MCV 98.9 fL (80.0-100.0) 01/20/24 05:15 MCH 35.2 pg (25.0-34.0) H 01/20/24 05:15 MCHC 35.6 g/dL (32.0-36.0) 01/20/24 05:15 RDW Std Deviation 48.7 fL (36.4-46.3) H 01/20/24 05:15 RDW Coeff of Britney 13.4 % (11.5-14.5) 01/20/24 05:15 Plt Count 108 K/uL (130-400) L 01/20/24 05:15 MPV 10.1 fL (9.4-12.4) 01/20/24 05:15 Immature Gran % (Auto) 0.5 % 01/20/24 05:15 Neut % (Auto) 60.9 % 01/20/24 05:15 Lymph % (Auto) 23.6 % 01/20/24 05:15 Kimball % (Auto) 13.6 % 01/20/24 05:15 Eos % (Auto) 0.3 % 01/20/24 05:15 Baso % (Auto) 1.1 % 01/20/24 05:15 Neut # (Auto) 3.84 K/uL (1.40-6.50) 01/20/24 05:15 Lymph # (Auto) 1.49 K/uL (1.20-3.40) 01/20/24 05:15 Kimball # (Auto) 0.86 K/uL (0.11-0.59) H 01/20/24 05:15 Eos # (Auto) 0.02 K/uL (0.00-0.50) 01/20/24 05:15 Baso # (Auto) 0.07 K/uL (0.00-0.20) 01/20/24 05:15 Immature Gran # (Auto) 0.03 K/uL (0.01-0.20) 01/20/24 05:15 PT 12.5 Seconds (9.0-12.0) H 01/20/24 05:15 INR 1.2 (0.9-1.1) H 01/20/24 05:15 APTT 27 Seconds (21-31) 01/20/24 05:15 PTT Ratio 1.0 01/20/24 05:15 POC Sodium 129 mmol/L (135-144) L 01/20/24 05:20 Sodium 131 mmol/L (136-145) L 01/20/24 05:15 POC Potassium 4.7 mmol/L (3.3-5.0) 01/20/24 05:20 Potassium 4.5 mmol/L (3.5-5.1) 01/20/24 05:15 POC Chloride 95 mmol/L (101-112) L 01/20/24 05:20 Chloride 94 mmol/L (98-107) L 01/20/24 05:15 Carbon Dioxide 21 mmol/L (21-32) 01/20/24 05:15 POC Total CO2 21 mmol/L (24-31) L 01/20/24 05:20 Anion Gap 16 (3-11) H 01/20/24 05:15 POC Anion Gap 18.0 mmol/L (16-25) 01/20/24 05:20 POC BUN 12 mg/dl (7-18) 01/20/24 05:20 BUN 11 mg/dl (6-23) 01/20/24 05:15 Creatinine 0.88 mg/dl (0.6-1.4) 01/20/24 05:15 POC Creatinine 0.8 mg/dl (0.6-1.3) 01/20/24 05:20 Est Cr Clr Drug Dosing 117.9 ml/min 01/20/24 05:15 Est GFR ( Amer) 109.7 ml/min 01/20/24 05:15 Est GFR (Non-Af Amer) 94.7 ml/min 01/20/24 05:15 BUN/Creatinine Ratio 12.5 (10-20) 01/20/24 05:15 Glucose 121 mg/dl (70-99(Fasting)) H 01/20/24 05:15 POC Glucose (other) 123 mg/dl (70-99) H 01/20/24 05:20 Osmolality 274 mOsm/kg (280-300) L 01/20/24 05:15 Calcium 9.9 mg/dl (8.6-10.3) 01/20/24 05:15 POC Ioniz Calcium Pat 1.11 mmol/l (1.12-1.32) L 01/20/24 05:20 Magnesium 1.7 mg/dl (1.7-2.4) 01/20/24 05:15 Total Bilirubin 3.1 mg/dl (0.2-1.0) H 01/20/24 05:15 AST 108 U/L (13-39) H 01/20/24 05:15 ALT 106 U/L (7-52) H 01/20/24 05:15 Alkaline Phosphatase 85 U/L (34-104) 01/20/24 05:15 Troponin I High Sens 102.1 pg/ml (0-20) H* 01/20/24 05:15 Total Protein 6.9 gm/dl (6.0-8.3) 01/20/24 05:15 Albumin 4.6 gm/dl (3.4-5.0) 01/20/24 05:15 Globulin 2.3 gm/dl (2.5-4.0) L 01/20/24 05:15 Albumin/Globulin Ratio 2.0 (0.9-2) 01/20/24 05:15 Lipase 38 U/L (11-82) 01/20/24 05:15 TSH 3.594 uIu/ml (0.300-4.500) 01/20/24 05:15 Code Status & VTE Plan Code Status Full code VTE Prophylaxis Plan VTE Prophylaxis will be ordered: Yes PG Care Time/CCT Total # of Minutes Spent Total Time Spent with Patient: Total time spent is greater than 50% in coordination of care (as documented) at patient's floor/unit and/or counseling patient: Coding Level of Care Code 14364 INT INP/OBS CARE 3/75MIN Diagnoses Atrial flutter with rapid ventricular response I48.92 Atrial fibrillation with rapid ventricular response I48.91 Elevated troponin R77.8 Non-ischemic cardiomyopathy I42.8 Paroxysmal atrial fibrillation with RVR I48.0 History of alcohol abuse F10.11 Hypertension I10
[2024-01-20] MEDS: DIGOXIN 250 MCG in SYRINGE 9 ML IV STA ×2 (06:57→13:26)
--- NOTE | 2024-01-20 07:21 | XRay Report ---
XR chest 1V portable HISTORY: 58 years-old Male Chest pain, nonspecific COMPARISON: 09/12/2022 TECHNIQUE: AP view of the chest FINDINGS: Cardiac silhouette is mildly enlarged. Mild chronic interstitial coarsening. No pneumothorax, pleural effusion or airspace consolidation. Spondylotic spurring of the spine. IMPRESSION: No acute process. ACT 112: Negative or not required by law. The above report was generated using voice recognition software. It may contain grammatical, syntax o r spelling errors. Electronically signed by: Lamont Levi M.D. 01/20/2024 7:20 AM
[2024-01-20] MEDS ORDERED: STAT IV Infusion **Titration per Protocol STA ×5 (08:27→14:40)
[2024-01-20] MEDS ORDERED: AMIODARONE IV BOLUS & DRIP IV STA (08:27)
[2024-01-20] MEDS ORDERED: 0.2 MICRON FILTER SET 1 EACH IV STA (08:27)
[2024-01-20] MEDS: AMIODARONE 150MG / 100ML D5W IV ONE (08:30)
[2024-01-20] MEDS: AMIODARONE 360MG / 200ML D5W IV ONE (08:30)
[2024-01-20] MEDS ORDERED: SODIUM CHLORIDE 0.9% 1,000 ML IV SCH (08:30)
[2024-01-20] MEDS: FUROSEMIDE 40 MG/4 ML VIAL IV ONE ×2 (08:30→08:40)
[2024-01-20] MEDS: AMIODARONE / D5W 150 MG/100 ML BAG IV STA (08:34)
[2024-01-20] MEDS: AMIODARONE / D5W 360 MG/200 ML BAG IV ONE (08:34)
[2024-01-20] MEDS ORDERED: levETIRAcetam 500 MG/5 ML VIAL IV STA (08:51)
--- NOTE | 2024-01-20 09:13 | Emergency Department Note ---
ED Visit Note CODE BLUE I was initially asked to evaluate the patient because of rapid atrial fibrillation. The patient started to become unstable and started showing signs of pulmonary edema. I was evaluating the patient for possible cardioversion with sedation. The patient started to improve. Lasix was ordered and amiodarone was ordered by cardiology. The patient then started to decompensate and had a seizure. He lost pulses and was taken directly to the resuscitation room. The patient's blood sugar was not low. The patient was felt to be a candidate for intubation. CPR was active and in progress. The patient was treated with ACLS protocol. The [facility] hospitalist was at the bedside. The patient was intubated in usual fashion. Breath sounds were symmetric. CT of the head was ordered and chest x-ray is pending. The patient is to be taken to the ICU. Kike Hawthorne PA-C was at the bedside. Endotracheal Intubation Indication cardiac arrest. The patient was on 100% oxygen via NRB prior to the procedure. Suction, airway equipment, RSI drugs, respiratory equipment, and appropriate personnel were prepared prior to the initiation of the procedure. A time out was taken. Induction was performed with ketamine and succinylcholine. After observing the clinical benefit of the medications, the airway was easily visualized utilizing a glide scope. A 7.5 size ETT tube was placed atraumatically to 23 cm using standard technique. The cuff inflated without signs of malfunction. There were bilateral breath sounds, positive colormetric change, no gastric sounds, a good capnography waveform, and post procedure pulse oximetry was 98%. Post intubation sedation and paralysis was left to the discretion of the ICU. There were no complications. .
[2024-01-20] MEDS: LORazepam 1 MG/1 ML SYR ED Inj Use ONE (09:41)
--- NOTE | 2024-01-20 09:59 | CT Scan Report ---
CT OF THE HEAD WITHOUT CONTRAST CLINICAL HISTORY: Seizure. COMPARISON STUDY: No previous studies for comparison. TECHNIQUE: Helical axial images of the head were obtained without IV contrast. Automated exposure con trol was utilized for the study. A dose lowering technique was utilized adhering to the principles o f ALARA. FINDINGS: This exam is moderately compromised by motion artifact. No acute intracranial hemorrhage, m idline shift or mass effect is present. The ventricular system is unremarkable. The basal cisterns ar e patent. No extra-axial collections are present. There are no findings to suggest acute dural sinus thrombosis or acute territorial infarct. No calvarial fractures are identified. There is mild mucosal thickening with a small air-fluid level within the right maxillary sinus. IMPRESSION: 1. No acute intracranial findings. Exam moderately compromised by motion artifact. 2. No calvarial fractures identified. ACT 112: Negative or not required by law. Electronically signed by: Wong Montenegro M.D. 01/20/2024 9:57 AM
--- NOTE | 2024-01-20 10:14 | Critical Care Consultation ---
Date of Consultation January 20, 2024 Assessment & Plan (1) Elevated troponin: (2) Atrial flutter with rapid ventricular response: (3) Acute on chronic HFrEF (heart failure with reduced ejection fraction): (4) Current smoker: (5) Non-ischemic cardiomyopathy: (6) Cardiogenic shock: (7) High anion gap metabolic acidosis: (8) NAHUN (acute kidney injury): (9) Transaminitis: (10) Bilirubinemia: (11) Aspiration pneumonia: (12) Pulmonary edema: Plan Reason Critically Ill: 58-year-old male presented to hospital with complaints of shortness of breath. Sent to ICU for cardiac arrest, intubated Past medical history: Systolic CHF, A-fib on Xarelto, nonischemic cardiomyopathy, hypertension Neuro - [facility] ICU: Unable to assess Propofol and fentanyl for sedation --New onset seizure Etiology is not clean TSH within normal limit CT of the head 01/20/2024 negative for any intracranial findings. Cardiac - -- Cardiac arrest with cardiogenic shock Etiology is likely cardiac/systolic CHF Will continue with vasopressors with inotropic support --A-fib with RVR Currently rate controlled Did get amiodarone in the ED Will continue with drip for the time being and discontinue with as soon as possible --Elevated troponins Likely type II [place] Continue to trend Follow-up EKG --Systolic CHF Decrease in EF from 40% to 25% 2D echo 01/20/2024: EF 20-25% Respiratory - CT chest 01/20/2024 personally reviewed: Centrilobular emphysema appreciated bilaterally Interlobular thickening appreciated bilaterally Consolidative process appreciated bilateral lower lobes Small bilateral pleural effusion No significant mediastinal lymphadenopathy -- VDRF For airway protection secondary to cardiac arrest Continue with ventilatory support Keep RASS -1 Daily sedation holidays and SBT's Chlorhexidine mouthwash --Hemoptysis Seems to be coming from pulmonary edema --Hypoxic respiratory failure Likely secondary to pulmonary edema with possible aspiration Diuresis as tolerated Continue with antibiotic GI - -- Transaminitis with hyperbilirubinemia Likely from hypotension Continue to trend RENAL/LYTES - -- NAHUN Monitor BUN/creatinine Avoid nephrotoxic medications Strict ins and outs --Hyponatremia Serum osmolality 274 TSH within normal limit -- HAGMA Delta-delta: Pure anion Likely sec to lactic acidosis Monitor - -- Continue with Burk catheter ENDO - -- ICU hypoglycemia protocol HEME - -- Thrombocytopenia Continue to monitor ID - -- Aspiration pneumonia Continue with antibiotics Follow sputum culture --Prophylaxis VTE: Xarelto at home, on heparin drip right now GI: Pantoprazole Lines: Right femoral TLC and arterial, peripheral Diet: N.P.o. Plan: Strict in and out Follow-up CT of the head as well as CT chest Follow-up repeat 2D echo Give Keppra 1000 g IV. Magnesium being replaced Hold beta-blockers. Patient will likely need vasopressor support after sedation has been started. Will consider inotropic support I have personally spent 64 minutes of critical care time in the direct management of this patient. This is a life/limb threatening event. This includes time spent evaluating patient, direct bedside care, chart review, placing orders, interpretation of diagnostic studies, discussion with consultants, patient, and family members, as well as other required patient management activities. This time is exclusive of all separately billable procedures, and teaching time and separate from and in addition to any other critical care service time. History of Present Illness Attending Physician: Ba Britton MD History of Present Illness 58-year-old male presented to hospital with complaints of shortness of breath Past medical history: Systolic CHF, A-fib on Xarelto, nonischemic cardiomyopathy, hypertension Patient was admitted yesterday for A-fib with RVR. In the ER today patient was given a bolus of amiodarone following which he had a seizure-like activity and had a cardiac arrest. He was given couple rounds of epi as well as 2 A of bicarb. ABG around that time was showed pH of 7.13. At the time of examination in the ICU. Patient was breathing over the vent. He seemed to be in respiratory distress. He was not on any sedation at that time Systolic blood pressure was in the 140s. Extremities were cold. Pupils were reactive to light. History was obtained from primary team Allergies Allergy/AdvReac Type Severity Reaction Status Date / Time No Known Allergies Allergy Unverified 08/10/23 15:40 Home Medications Medication Instructions Recorded Confirmed Type rivaroxaban 20 mg tablet (Xarelto) 20 mg PO DAILY 90 days #90 tabs 01/19/23 08/10/23 Rx furosemide 20 mg tablet (Lasix) 20 mg PO BID #180 tabs 01/22/23 08/10/23 Rx carvedilol 25 mg tablet 25 mg PO BID #180 tabs 02/02/23 08/10/23 Rx sacubitril 24 mg-valsartan 26 mg 1 tab PO BID #60 tabs 07/02/23 08/10/23 Rx tablet (Entresto) azelastine 137 mcg (0.1 %) nasal 1 spray intranasal BID PRN 08/10/23 08/10/23 History spray Patient History Medical History Elevated troponin Acute respiratory failure with hypoxia Hypertensive emergency Elevated troponin Micturition syncope Surgical History No pertinent past surgical history Family History Mother Heart disease Father Coronary heart disease H/O aortic valve replacement Brother Coronary heart disease Social History Smoking Status: Former smoker Tobacco Type: Cigarettes Cigarettes Per Day: 20; Second Hand Exposure: No; Do You Dip or Chew Tobacco: No; Hx Alcohol Use: Yes Alcohol type: beer Hx Substance Use: No Preferred Language: Niuean Communication Ability: Effective Quick Print Operator Required: No Beliefs That Will Affect Care: None Current Living Situation: Alone Feels Safe at Home: Yes Assistive Devices: None Review of Systems 2 Review of Systems: Unobtainable due to endotracheal tube Physical Exam 2 Physical Exam: Constitutional: In respiratory distress HEENT: PERRLA Respiratory system: Decreased air entry bilaterally, positive rhonchi, positive expiratory wheeze, mild crackles bilateral lower lobes CVS: S1-S2 positive, no murmurs or gallops Abdomen: Soft, nontender, nondistended, positive bowel sounds x4 Extremities: +1 pulses bilaterally radialis/ dorsalis pedis, no cyanosis, no edema, cold extremities Neuro: Breathing over the vent, not following any commands Psych: Unable to assess G/U: Positive Burk Skin: no rashes, warm and dry Lymphatic: no cervical or axillary lymphadenopathy Results & Data Results & Data Vital Signs (Past 12 Hours) Vital Signs Temp Pulse Pulse Resp BP BP Pulse Ox 01/20/24 09:15 89 34 H 94 01/20/24 09:14 110/87 01/20/24 09:14 110/87 01/20/24 09:12 117/90 01/20/24 09:12 117/90 01/20/24 09:11 94 H 34 H 124/87 88 L 01/20/24 09:08 89 26 H 86 L 01/20/24 09:03 112/88 01/20/24 09:03 112/88 01/20/24 08:59 137/109 H 01/20/24 08:24 150 H 38 H 149/113 H 90 01/20/24 08:18 130 H 33 H 90/72 L 88 L 01/20/24 08:03 128 H 42 H 120/104 H 86 L 01/20/24 07:49 88 L 01/20/24 07:49 141 H 32 H 129/103 H 93 01/20/24 07:33 143 H 27 H 129/103 H 89 L 01/20/24 07:20 139 H 26 H 143/101 H 97 01/20/24 07:05 140 H 26 H 107/92 97 01/20/24 07:05 136 H 23 107/92 95 01/20/24 06:57 138 H 01/20/24 06:30 142 H 98/79 L 94 01/20/24 06:01 111/82 01/20/24 05:42 139 H 20 107/88 99 01/20/24 05:35 132 H 100/60 01/20/24 05:35 129 H 103/86 01/20/24 05:33 99 01/20/24 05:30 01/20/24 05:30 133 H 22 96 01/20/24 05:22 36.3 C L 137 H 20 115/87 96 01/20/24 05:21 150 H 115/87 01/20/24 05:18 158 H 122/96 O2 Del Method O2 Flow Rate FiO2 01/20/24 09:15 01/20/24 09:14 01/20/24 09:14 01/20/24 09:12 01/20/24 09:12 01/20/24 09:11 Mechanical Vent 01/20/24 09:08 100 01/20/24 09:03 01/20/24 09:03 01/20/24 08:59 01/20/24 08:24 Nasal Cannula 6 01/20/24 08:18 Nasal Cannula 4 01/20/24 08:03 Nasal Cannula 4 01/20/24 07:49 Room Air 0 01/20/24 07:49 Nasal Cannula 2 01/20/24 07:33 Nasal Cannula 8 01/20/24 07:20 Room Air 01/20/24 07:05 01/20/24 07:05 Room Air 01/20/24 06:57 01/20/24 06:30 Room Air 01/20/24 06:01 01/20/24 05:42 Room Air 01/20/24 05:35 01/20/24 05:35 01/20/24 05:33 Room Air 01/20/24 05:30 Room Air 01/20/24 05:30 Room Air 01/20/24 05:22 Room Air 01/20/24 05:21 01/20/24 05:18 Laboratory Results 01/20/24 05:15 01/20/24 10:04 Coding Level of Care Code 77183 CRITICAL CARE 1ST 30-74M Diagnoses Elevated troponin R77.8 Atrial flutter with rapid ventricular response I48.92 Acute on chronic HFrEF (heart failure with reduced ejection fraction) I50.23 Current smoker F17.200 Non-ischemic cardiomyopathy I42.8 Cardiogenic shock R57.0 High anion gap metabolic acidosis E87.29 NAHUN (acute kidney injury) N17.9 Transaminitis R74.01 Bilirubinemia E80.6 Aspiration pneumonia J69.0 Pulmonary edema J81.1
[2024-01-20] MEDS: levETIRAcetam 500 MG/5 ML VIAL IV STA (10:17)
[2024-01-20] MEDS: NOREPINEPHRINE/D5W 4 MG/250 ML PLCT IV SCH (10:30)
[2024-01-20 10:34] LABS: iSTAT Arterial Blood Gas HCO3 23 meg/L (19-24); iSTAT Arterial Blood Gas pCO2 70 mmHg (35-46); iSTAT Arterial Blood Gas pH 7.12 (7.35-7.45); iSTAT Arterial Blood Gas pO2 385 mmHg (80-95); iSTAT Carbon Dioxide 25 mmol/L (24-31); iSTAT Hematocrit 44 % (42-52); iSTAT Potassium 5.1 mmol/L (3.3-5.0); iSTAT Sodium 126 mmol/L (135-144)
[2024-01-20 10:36] LABS: iSTAT Allen Test Pass; iSTAT Art Bld Gas pCO2 Correct 44 mmHg (35-46); iSTAT Art Bld Gas pH Corrected 7.244 (7.35-7.45); iSTAT Arterial Blood Gas HCO3 19 meg/L (19-24); iSTAT Arterial Blood Gas pCO2 46 mmHg (35-46); iSTAT Arterial Blood Gas pH 7.23 (7.35-7.45); iSTAT Arterial Blood Gas pO2 65 mmHg (80-95); iSTAT Arterial Blood Gas pO2 C 61; iSTAT Carbon Dioxide 21 mmol/L (24-31); iSTAT FiO2 100 %; iSTAT Hematocrit 40 % (42-52); iSTAT Hemoglobin 13.6 g/dl (14.0-18.0); iSTAT Potassium 3.3 mmol/L (3.3-5.0); iSTAT Site L Radial; iSTAT Sodium 131 mmol/L (135-144)
[2024-01-20] MEDS: fentaNYL citrate 2,500 MCG/250 ML BAG IV ONE (10:39)
[2024-01-20 10:40] LABS: BUN Creatinine Ratio 14.8 (10-20); Bilirubin Direct 1.5 mg/dl (0-0.2); Calcium 7.4 mg/dl (8.6-10.3); Creatinine Clr Calc Pharmacy 79.7 ml/min; Est GFR (African American) 109.7 ml/min; Est GFR (Non-African American) 94.7 ml/min; Phosphorus 7.8 mg/dl (2.5-4.9); Potassium 3.8 mmol/L (3.5-5.1)
[2024-01-20] MEDS: RAPID SEQUENCE INDUCTION BAG ONE (10:40)
[2024-01-20] MEDS: PROPOFOL IV EMULSION 10 MG/ML 100 ML VIAL IV ONE (10:40)
[2024-01-20] MEDS: carvediloL 6.25 MG TAB PO SCH (10:41)
[2024-01-20] MEDS: VASOPRESSIN 20 UNITS in SODIUM CHLORIDE 0.9% 100 ML IV SCH (10:42)
[2024-01-20 10:49] LABS: Troponin I High Sensitivity 210.2 pg/ml (0-20)
--- NOTE | 2024-01-20 11:13 | CT Scan Report ---
CT chest diagnostic wo con CT DOSE: 1074.86 mGy.cm CLINICAL HISTORY: 58 years-old Male with s/p arrest, copd. Acute shortness of breath TECHNIQUE: Multiaxial CT images of the chest were performed without contrast. A dose lowering techni que was utilized adhering to the principles of ALARA. COMPARISON: CT chest 05/28/2019 FINDINGS: Motion degraded exam. No dominant thyroid nodule identified. Borderline enlarged mediastina l and hilar lymph nodes are nonspecific. Cardiomegaly without pericardial effusion. Moderate coronary artery calcifications. No atherosclerotic aneurysm. Dilation of the main pulmonary artery measures u p to 2.8 cm. Small pleural effusions. No pneumothorax. Intralobular septal thickening with intermixed diffuse grou ndglass and layering consolidative opacities. Consolidation is most pronounced in the dependent lower lobes. Findings are new/considerably progressed compared to the radiograph this morning. Endotrachea l tube is noted within the trachea, 3.5 cm superior to the marga. Mild tracheobronchial secretions. Pulmonary emphysema. Fatty infiltration of the liver. Mild generalized body wall edema. No acute fracture. Gynecomastia. IMPRESSION: 1. Cardiomegaly with interval development of interstitial and alveolar pulmonary edema which demonstr ates a considerable change compared to the chest radiograph conducted earlier this morning. 2. Small pleural effusions. 3. Dependent airspace opacities should be correlated clinically to exclude aspiration. 4. Satisfactory positioning of the endotracheal tube with mild tracheobronchial secretions. 5. Emphysema. 6. Hepatic steatosis. ACT 112: Negative or not required by law. Electronically signed by: Lamont Levi M.D. 01/20/2024 11:11 AM
--- NOTE | 2024-01-20 11:17 | Procedure Note ---
Procedure Note Date of Service January 20, 2024 Procedure: Femoral Central Line Placement Attending: Dr. Giordano APC: Kike Hawthorne PA-C Indication: Central Drug Administration, Poor Venous Access, Multiple Lab Draws Necessary, etc. Anesthesia: Lidocaine 1% Emergent consent implied in the setting of active extremis with need for multiple pressors, multiple blood draws, and need for central venous access. A time-out was completed verifying correct patient, procedure, site, positioning, and implants(s) or special equipment if applicable. Patient's RIGHT groin was cleansed and draped in the typical sterile fashion using Chloraprep. The Femoral Vein and Femoral Artery were identified using ultrasound. The s uperficial tissue was anesthetized using 3.0 mL of 1% lidocaine without epinephrine under direct visualization with the ultrasound. After adequate anesthetization was achieved, the Femoral Vein was cannulated under direct ultrasound guidance using an introducer needle on a syringe. Good venous blood return was maintained prior to removal of syringe from introducer needle. Using Seldinger Technique, a guide wire was advanced through the introducer needle without resistance. The introducer needle was removed and ultrasound images were obtained of the guide wire within the Femoral Vein and saved to the patient's medical record. A small incision was made in penetrating fashion at the guide wire insertion site utilizing an 11 blade scalpel. The dilator was advanced to the vessel without resistance. The dilator was exchanged for the triple lumen catheter which was advanced into the vessel without resistance. The guide wire was removed intact from the catheter without issue. Claves were placed on each catheter tip with confirmation of good blood flow from each lumen. Each port was easily flushed with sterile saline. The catheter was placed at the hub and sutured in place. BioPatch was applied to the catheter and a sterile Tegaderm dressing was applied over the catheter with careful attention to sterility. Patient tolerated procedure well. No immediate complications were met. Images obtained are saved for permanent record Procedural Ultrasound Guidance: Procedure Date: 01/20/2024 Indication: Need for central access, pressors, frequent lab draws, etc. Attending: Dr. Giordano APC: Kike Hawthorne PA-C Artery AND Vein visualized: YES Compressible Vein: YES Guidewire or Short Catheter seen in vein prior to dilation: YES Line confirmed in Vein with ultrasound: YES Images obtained are saved for permanent record. [facility] Procedure Codes (Charges) Tubes, Drains, and Vasc Access Procedure 1: Tubes, Drains, and Vasc Access: [id number] Place catheter in vein superior or inferior vena cava Procedure 2: Tubes, Drains, and Vasc Access: [id number] Ultrasound Guidance For Vascular Coding CPT Codes Tubes, Drains, and Vasc Access - Tubes, Drains, and Vasc Access: [id number] Place catheter in vein superior or inferior vena cava ([id number]) Tubes, Drains, and Vasc Access - Tubes, Drains, and Vasc Access: [id number] Ultrasound Guidance For Vascular ([id number]) Additional Codes Date of Service ([facility].SURGERY)
--- NOTE | 2024-01-20 11:22 | Procedure Note ---
Procedure Note Date of Service January 20, 2024 Procedure: Femoral Arterial Line Placement Attending: Dr. Giordano APC: Kike Hawthorne PA-C Indication: Central Drug Administration, Poor Venous Access, Multiple Lab Draws Necessary, etc. Anesthesia: Lidocaine 1% Emergent consent applied in the setting of need for close hemodynamic monitoring of patient requiring multiple pressors as well as need for frequent lab draws, etc. A time-out was completed verifying correct patient, procedure, site, positioning, and implants(s) or special equipment if applicable. Patient's RIGHT groin was cleansed and draped in the typical sterile fashion using Chloraprep. The Femoral Vein and Femoral Artery were identified using ultrasound. The superficial tissue was anesthetized using 2.0 mL of 1% lidocaine without epinephrine under direct visualization with the ultrasound. After adequate anesthetization was achieved, the Femoral Artery was cannulated under direct ultrasound guidance using an introducer needle on a syringe. Good arterial blood return was maintained prior to removal of syringe from introducer needle. Using Seldinger Technique, a guide wire was advanced through the introducer needle without resistance. The introducer needle was removed and ultrasound images were obtained of the guide wire within the Femoral Artery and saved to the patient's medical record. The femoral arterial catheter was advanced into the vessel without resistance. The guide wire was removed intact from the catheter without issue. The arterial line was connected and good waveforms were appreciated. Blood draw was easily returned by nursing staff. The catheter was sutured in place. Was dressed with CHG impregnated dressing. Patient tolerated procedure well. No immediate complications were met. Images obtained are saved for permanent record Procedural Ultrasound Guidance: Procedure Date: 01/20/2024 Indication: Pressors, frequent lab draws, etc. Attending: Dr. Giordano APC: Kike Hawthorne PA-C Artery AND Vein visualized: YES Line confirmed in Artery with ultrasound: YES Images obtained are saved for permanent record. [facility] Procedure Codes (Charges) Tubes, Drains, and Vasc Access Procedure 1: Tubes, Drains, and Vasc Access: [id number] Arterial Cath/Cannulation Sampling/Monitoring/Transfusion Procedure 2: Tubes, Drains, and Vasc Access: [id number] Ultrasound Guidance For Vascular Coding CPT Codes Tubes, Drains, and Vasc Access - Tubes, Drains, and Vasc Access: [id number] Arterial Cath/Cannulation Sampling/Monitoring/Transfusion ([id number]) Tubes, Drains, and Vasc Access - Tubes, Drains, and Vasc Access: [id number] Ultrasound Guidance For Vascular ([id number]) Additional Codes Date of Service ([facility].SURGERY)
[2024-01-20] MEDS: MAGNESIUM SULFATE / D5W 1 GM/100 ML BAG IV ONE (11:23)
[2024-01-20] MEDS: PIPERACILLIN/TAZOBACTAM 4.5 GM/100 ML BAG IV ONE (11:26)
[2024-01-20 11:32] LABS: Appearance Urine Clear (Clear); Bacteria Urine Automated None Seen (None Seen); Bilirubin Urine Negative (Negative); Blood Urine 1+ (Negative); Color Urine Yellow; Epithelial Cell Urine Auto 0-2 /hpf (0-2); Glucose Urine UA Negative (Negative); Ketones Urine Negative (Negative); Leukocyte Esterase Urine Negative (Negative); Nitrite Urine Negative (Negative); Protein Urine 1+ (Negative); Specific Gravity Urine 1.008 (1.000-1.030); Urobilinogen Urine Negative (Negative); WBC Urine Automated 0-5 /hpf (0-5); pH Urine 5.5 (4.5-7.5)
[2024-01-20] MEDS: EPINEPHrine/NSS 4 MG/254 ML BAG IV SCH (12:05)
[2024-01-20] MEDS: fentaNYL citrate 2,500 MCG/250 ML BAG IV SCH (12:06)
[2024-01-20] MEDS: propofoL 1,000 MG/100 ML VIAL IV SCH (12:07)
[2024-01-20 12:17] LABS: Adenovirus PCR Not Detected (NotDetected); Bordetella parapertussis PCR Not Detected (NotDetected); Bordetella pertussis PCR Not Detected (NotDetected); Chlamydia pneumoniae PCR Not Detected (NotDetected); Coronavirus 229E PCR Not Detected (NotDetected); Coronavirus CoV-2 (COVID19)PCR Not Detected (NotDetected); Coronavirus HKU1 PCR Not Detected (NotDetected); Coronavirus NL63 PCR Not Detected (NotDetected); Coronavirus OC43PCR Not Detected (NotDetected); Human Metapneumovirus PCR Not Detected (NotDetected); Influenza A PCR Not Detected (NotDetected); Influenza B PCR Not Detected (NotDetected); Mycoplasma pneumoniae PCR Not Detected (NotDetected); Parainfluenza Virus 1 PCR Not Detected (NotDetected); Parainfluenza Virus 2 PCR Not Detected (NotDetected); Parainfluenza Virus 3 PCR Not Detected (NotDetected); Parainfluenza Virus 4 PCR Not Detected (NotDetected); Respiratory Syncytial VirusPCR Not Detected (NotDetected); Rhinovirus/Enterovirus PCR Not Detected (NotDetected)
[2024-01-20 12:27] LABS: Creatinine Urine Random 18.6 mg/dl; Potassium Random Urine 30.8 mmol/L
[2024-01-20] MEDS: EPINEPHrine INJ 1 MG/ML AMP ONE (12:31)
[2024-01-20] MEDS ORDERED: SUCCINYLCHOLINE CHLORIDE 20 MG/ML 10 ML VIAL IV ONE (12:55)
[2024-01-20] MEDS ORDERED: KETAMINE HCL INJ 50 MG/ML 10 ML VIAL IV ONE (12:55)
[2024-01-20] MEDS: PANTOprazole 40 MG in SYRINGE 0 ML IV SCH (13:08)
[2024-01-20 13:21] LABS: ANTI-Xa, UFH(UnfractionatedHep < 0.10 IU/ml (0.3-0.7)
[2024-01-20] MEDS ORDERED: GLUCOSE 10 TAB/TUBE PO PRN (13:27)
[2024-01-20] MEDS ORDERED: GLUCAGON FOR INJ 1 MG VIAL SQ PRN (13:27)
[2024-01-20] MEDS ORDERED: DEXTROSE 50% 50 ML SYRINGE IV PRN (13:27)
[2024-01-20] MEDS ORDERED: GLUCOSE 40% GEL 15 GM TUBE PO PRN (13:27)
[2024-01-20] MEDS ORDERED: CARBOHYDRATES FOR HYPOGLYCEMIA PO PRN (13:27)
[2024-01-20] MEDS ORDERED: PHARMACY GLYCEMIC MGMT CONSULT PRN (13:38)
[2024-01-20] MEDS: ICU Protocol for HYPERglycemia SCH (13:46)
--- NOTE | 2024-01-20 13:59 | Pharmacy Report ---
Pharmacy Glycemic Short Note 2 - Date of Service January 20, 2024 - Glycemic Short BSG Results (Last 24 hours): 01/20/24 01/20/24 01/20/24 05:15 05:20 09:05 Glucose 121 H POC Glucose 172 H POC Glucose (other) 123 H 01/20/24 10:04 Glucose 162 H POC Glucose POC Glucose (other) OUTPATIENT ANTIDIABETIC REGIMEN: * N/A HbA1C:__ ASSESSMENT: * Pt is a 58 YOM admitted to ICU s/p cardiac arrest. Now intubated and requiring vasopressor support. No history of DM (not on any meds for DM @ home)- pharmacy consulted to assist with inpatient glycemic management. * BSGs 172-195mg/dL. NPO, receiving IV antibiotics (as well as amiodarone in D5W) and vasopressors. * Given no history of DM and stress induced hyperglycemia, will begin with a Novolog moderate-severe stress scale q6. If BSGs continue to rise throughout the day, can tighten Novolog/increase to q4. May potentially require an IV insulin infusion if BSGs remain uncontrolled with SQ/pressor support. No SQ basal given acuity for now. PLAN FOR INPATIENT GLYCEMIC CONTROL: * Hold outpatient oral diabetes medications * Basal insulin * hold * Bolus insulin * NovoLog per scale ACHS or Q6hrs while NPO * Goal Range: Low 110 mg/dL - High 140 mg/dL * Correction Factor: 35 mg/dL/unit * Nutritional / Prandial insulin per carb ratio of 1 unit per 13 grams CHO consumed
[2024-01-20] MEDS: INSULIN ASPART PER UNIT CHARGE SC SCH (14:10)
--- NOTE | 2024-01-20 14:37 | Electrocardiogram Report ---
Test Reason : Blood Pressure : */* mmHG Vent. Rate : 165 BPM Atrial Rate : 381 BPM P-R Int : * ms QRS Dur : 90 ms QT Int : 294 ms P-R-T Axes : * -32 114 degrees QTcB Int : 487 ms Atrial fibrillation with rapid ventricular response Left axis deviation Inferior infarct , age undetermined Poor R wave progression, consider anterior LA vs. lead placement vs. LVH Abnormal ECG When compared with ECG of 12-Sep-2022 10:15, Significant changes have occurred Confirmed by Pranay Lyons ([id number]) on 01/20/2024 2:36:44 PM Referred By: Confirmed By: Pranay Lyons
[2024-01-20] MEDS: NOREPINEPHRINE/D5W 4 MG/250 ML IV ONE (14:42)
[2024-01-20] MEDS: AMIODARONE / D5W 360 MG/200 ML BAG IV SCH (14:43)
--- NOTE | 2024-01-20 14:43 | Electrocardiogram Report ---
Test Reason : Blood Pressure : */* mmHG Vent. Rate : 141 BPM Atrial Rate : * BPM P-R Int : * ms QRS Dur : 86 ms QT Int : 350 ms P-R-T Axes : * -13 118 degrees QTcB Int : 536 ms Atrial fibrillation with rapid ventricular response with premature ventricular or aberrantly conducte d complexes Inferior infarct (cited on or before 20-Jan-2024) T wave abnormality, consider anterolateral ischemia Abnormal ECG When compared with ECG of 20-Jan-2024 05:11, (unconfirmed) Questionable change in initial forces of Inferior leads Inverted T waves have replaced nonspecific T wave abnormality in Anterior leads Confirmed by Pranay Lyons ([id number]) on 01/20/2024 2:43:16 PM Referred By: REFERRED SELF Confirmed By: Pranay Lyons
--- NOTE | 2024-01-20 14:56 | XRay Report ---
XR chest 1V portable CLINICAL HISTORY: post intubation COMPARISON STUDY: Chest radiograph and chest CT performed earlier today. FINDINGS: Tip of endotracheal tube is 5.3 cm above the marga. Tip of nasogastric tube is within the body of the stomach. There is no pneumothorax. Small bilateral pleural effusions are present. Interst itial thickening and bilateral airspace opacities are present, including right basilar consolidation. IMPRESSION: 1. Tip of endotracheal tube 5.3 cm above the marga. Tip of nasogastric tube within the body of the s tomach. 2. No pneumothorax. Small bilateral pleural effusions, right larger than left. 3. Findings suggestive of interstitial and alveolar pulmonary edema. Right basilar consolidation coul d reflect superimposed pneumonia or aspiration pneumonitis. ACT 112: Negative or not required by law. Electronically signed by: Wong Montenegro M.D. 01/20/2024 2:55 PM
[2024-01-20] MEDS ORDERED: Nursing to Pharmacy Communication SCH (15:00)
[2024-01-20 15:06] LABS: Hematocrit (blood only) 42.2 % (42.0-52.0); Hemoglobin 14.8 g/dl (14.0-18.0)
[2024-01-20 16:13] LABS: iSTAT Art Bld Gas pCO2 Correct 37 mmHg (35-46); iSTAT Art Bld Gas pH Corrected 7.394 (7.35-7.45); iSTAT Arterial Blood Gas HCO3 23 meg/L (19-24); iSTAT Arterial Blood Gas pCO2 38 mmHg (35-46); iSTAT Arterial Blood Gas pH 7.39 (7.35-7.45); iSTAT Arterial Blood Gas pO2 238 mmHg (80-95); iSTAT Arterial Blood Gas pO2 C 237; iSTAT Carbon Dioxide 24 mmol/L (24-31); iSTAT FiO2 100 %; iSTAT Hematocrit 45 % (42-52); iSTAT Hemoglobin 15.3 g/dl (14.0-18.0); iSTAT Potassium 4.2 mmol/L (3.3-5.0); iSTAT Site Art Line; iSTAT Sodium 129 mmol/L (135-144)
[2024-01-20] MEDS: PIPERACILLIN/TAZOBACTAM 4.5 GM/100 ML BAG IV SCH (16:21)
--- NOTE | 2024-01-20 17:02 | Hospitalist Progress Note ---
Date of Service January 20, 2024 Assessment & Plan (1) Non-ischemic cardiomyopathy: Plan: Elevated troponin/atrial flutter with RVR/history of paroxysmal atrial fibrillation and A-fib with RVR/hypertension/nonischemic cardiomyopathy- eval in am with consideration of DC cardioversion but pt was non complaint with Anticoagulation, so decision to use amiodarone, converted to nsr after bolus then became unresponsive, clenched jaw but not tonic clonic movements, roberto carlos ntually lost pulse and pressure, underwent CPR, rosc returned after bicarb and intubation transfer to icu for further care , amiodarone gtt continues for possible seizure Keppra given CT head without acute changes heparin gtt held due to hemoptysis assumed to be traumatic from cpr, I witnessed intubation and was not traumatic nor was there bloody secretions unclear if elevated troponin was nstemi or demand ischemia, now after cpr will be difficult to tell (2) Respiratory failure: Plan: required intubation and ventilation sedated on CT chest likely aspiration , on Zosyn (3) History of alcohol abuse: Plan: unclear of last drink, did get bananna bag, and is on thiamine also tobacco abuse Admission and Anticipated Discharge Date Admission Date: January 20, 2024 Results & Data Results & Data Vital Signs (Past 12 Hours) Vital Signs Temp Pulse Pulse Resp BP BP Pulse Ox 01/20/24 15:13 77 26 H 99 01/20/24 14:29 01/20/24 14:20 102/82 01/20/24 14:20 102/82 01/20/24 14:18 97.0 F L 78 26 H 100 01/20/24 14:15 105/75 01/20/24 14:15 105/75 01/20/24 14:15 96.8 F L 75 26 H 100 01/20/24 14:05 91/72 L 01/20/24 14:05 91/72 L 01/20/24 14:05 91/72 L 01/20/24 14:05 91/72 L 01/20/24 14:00 92/70 L 01/20/24 14:00 96.8 F L 71 26 H 100 01/20/24 13:50 93/67 L 01/20/24 13:50 93/67 L 01/20/24 13:50 93/67 L 01/20/24 13:50 93/67 L 01/20/24 13:48 96.6 F L 69 26 H 100 01/20/24 13:45 101/72 01/20/24 13:45 101/72 01/20/24 13:45 101/72 01/20/24 13:45 96.6 F L 71 26 H 100 01/20/24 13:40 109/79 01/20/24 13:40 109/79 01/20/24 13:36 96.6 F L 72 26 H 100 01/20/24 13:35 106/83 01/20/24 13:30 111/83 01/20/24 13:30 111/83 01/20/24 13:30 96.6 F L 71 26 H 100 01/20/24 13:26 71 01/20/24 13:25 109/80 01/20/24 13:25 109/80 01/20/24 13:10 107/82 01/20/24 13:06 96.6 F L 70 26 H 98 01/20/24 13:05 106/81 01/20/24 13:05 106/81 01/20/24 13:05 106/81 01/20/24 13:03 96.6 F L 70 26 H 98 01/20/24 13:00 01/20/24 13:00 109/77 01/20/24 13:00 109/77 01/20/24 12:57 96.6 F L 69 26 H 98 01/20/24 12:55 104/77 01/20/24 12:55 104/77 01/20/24 12:55 104/77 01/20/24 12:54 96.6 F L 69 26 H 97 01/20/24 12:50 101/73 01/20/24 12:50 101/73 01/20/24 12:45 96.6 F L 68 26 H 97 01/20/24 12:45 99/71 L 01/20/24 12:45 99/71 L 01/20/24 12:45 99/71 L 01/20/24 12:40 94/70 L 01/20/24 12:25 100/79 01/20/24 12:20 87/65 L 01/20/24 12:18 96.6 F L 68 26 H 94 01/20/24 12:15 98/71 L 01/20/24 12:15 98/71 L 01/20/24 12:15 98/71 L 01/20/24 12:03 96.6 F L 70 26 H 88 L 01/20/24 12:00 105/80 01/20/24 12:00 105/80 01/20/24 12:00 105/80 01/20/24 11:57 80/61 L 01/20/24 11:55 76/58 L 01/20/24 11:54 96.6 F L 73 26 H 89 L 01/20/24 11:50 82/59 L 01/20/24 11:45 91/63 L 01/20/24 11:45 91/63 L 01/20/24 11:42 96.6 F L 73 26 H 01/20/24 11:40 95/68 L 01/20/24 11:40 95/68 L 01/20/24 11:35 114/73 01/20/24 11:33 96.8 F L 77 26 H 91 01/20/24 11:30 128/86 01/20/24 11:30 128/86 01/20/24 11:30 128/86 01/20/24 11:30 128/86 01/20/24 11:27 96.8 F L 83 27 H 87 L 01/20/24 11:25 149/104 H 01/20/24 11:25 149/104 H 01/20/24 11:16 141/94 H 01/20/24 11:05 138/106 H 01/20/24 11:05 01/20/24 11:04 01/20/24 10:55 132/94 01/20/24 10:54 97.0 F L 78 27 H 86 L 01/20/24 10:52 132/98 01/20/24 10:52 132/98 01/20/24 10:52 132/98 01/20/24 10:51 97.0 F L 78 27 H 88 L 01/20/24 10:50 133/100 01/20/24 10:48 97.0 F L 79 27 H 91 01/20/24 10:46 134/95 01/20/24 10:46 134/95 01/20/24 10:46 134/95 01/20/24 10:41 107/92 01/20/24 10:36 125/95 01/20/24 10:30 133/97 01/20/24 10:25 107/81 01/20/24 10:24 97.0 F L 73 26 H 93 01/20/24 10:23 90/70 L 01/20/24 10:22 68/53 L 01/20/24 10:15 69/39 L 01/20/24 10:13 69/47 L 01/20/24 10:12 97.2 F L 77 26 H 01/20/24 10:10 67/51 L 01/20/24 10:10 67/51 L 01/20/24 10:08 71/52 L 01/20/24 10:07 100 H 26 H 77 L 01/20/24 10:04 71/54 L 01/20/24 09:15 89 34 H 94 01/20/24 09:14 110/87 01/20/24 09:14 110/87 01/20/24 09:12 117/90 01/20/24 09:12 117/90 01/20/24 09:11 94 H 34 H 124/87 88 L 01/20/24 09:08 89 26 H 86 L 01/20/24 09:03 112/88 01/20/24 09:03 112/88 01/20/24 08:59 137/109 H 01/20/24 08:24 150 H 38 H 149/113 H 90 01/20/24 08:18 130 H 33 H 90/72 L 88 L 01/20/24 08:03 128 H 42 H 120/104 H 86 L 01/20/24 07:49 88 L 01/20/24 07:49 141 H 32 H 129/103 H 93 01/20/24 07:33 143 H 27 H 129/103 H 89 L 01/20/24 07:20 139 H 26 H 143/101 H 97 01/20/24 07:05 140 H 26 H 107/92 97 01/20/24 07:05 136 H 23 107/92 95 01/20/24 06:57 138 H 01/20/24 06:30 142 H 98/79 L 94 01/20/24 06:01 111/82 01/20/24 05:42 139 H 20 107/88 99 01/20/24 05:35 132 H 100/60 01/20/24 05:35 129 H 103/86 01/20/24 05:33 99 01/20/24 05:30 01/20/24 05:30 133 H 22 96 01/20/24 05:22 97.3 F L 137 H 20 115/87 96 01/20/24 05:21 150 H 115/87 01/20/24 05:18 158 H 122/96 Pulse Ox O2 Del Method O2 Del Method O2 Flow Rate FiO2 01/20/24 15:13 100 01/20/24 14:29 100 01/20/24 14:20 01/20/24 14:20 01/20/24 14:18 01/20/24 14:15 01/20/24 14:15 01/20/24 14:15 01/20/24 14:05 01/20/24 14:05 01/20/24 14:05 01/20/24 14:05 01/20/24 14:00 01/20/24 14:00 01/20/24 13:50 01/20/24 13:50 01/20/24 13:50 01/20/24 13:50 01/20/24 13:48 01/20/24 13:45 01/20/24 13:45 01/20/24 13:45 01/20/24 13:45 01/20/24 13:40 01/20/24 13:40 01/20/24 13:36 01/20/24 13:35 01/20/24 13:30 01/20/24 13:30 01/20/24 13:30 01/20/24 13:26 01/20/24 13:25 01/20/24 13:25 01/20/24 13:10 01/20/24 13:06 01/20/24 13:05 01/20/24 13:05 01/20/24 13:05 01/20/24 13:03 01/20/24 13:00 Mechanical Vent 100 01/20/24 13:00 01/20/24 13:00 01/20/24 12:57 01/20/24 12:55 01/20/24 12:55 01/20/24 12:55 01/20/24 12:54 01/20/24 12:50 01/20/24 12:50 01/20/24 12:45 01/20/24 12:45 01/20/24 12:45 01/20/24 12:45 01/20/24 12:40 01/20/24 12:25 01/20/24 12:20 01/20/24 12:18 01/20/24 12:15 01/20/24 12:15 01/20/24 12:15 01/20/24 12:03 01/20/24 12:00 01/20/24 12:00 01/20/24 12:00 01/20/24 11:57 01/20/24 11:55 01/20/24 11:54 01/20/24 11:50 01/20/24 11:45 01/20/24 11:45 01/20/24 11:42 01/20/24 11:40 01/20/24 11:40 01/20/24 11:35 01/20/24 11:33 01/20/24 11:30 01/20/24 11:30 01/20/24 11:30 01/20/24 11:30 01/20/24 11:27 01/20/24 11:25 01/20/24 11:25 01/20/24 11:16 01/20/24 11:05 01/20/24 11:05 Mechanical Vent 01/20/24 11:04 89 L Mechanical Vent 01/20/24 10:55 01/20/24 10:54 01/20/24 10:52 01/20/24 10:52 01/20/24 10:52 01/20/24 10:51 01/20/24 10:50 01/20/24 10:48 01/20/24 10:46 01/20/24 10:46 01/20/24 10:46 01/20/24 10:41 01/20/24 10:36 01/20/24 10:30 01/20/24 10:25 01/20/24 10:24 01/20/24 10:23 01/20/24 10:22 01/20/24 10:15 01/20/24 10:13 01/20/24 10:12 01/20/24 10:10 01/20/24 10:10 01/20/24 10:08 01/20/24 10:07 100 01/20/24 10:04 01/20/24 09:15 01/20/24 09:14 01/20/24 09:14 01/20/24 09:12 01/20/24 09:12 01/20/24 09:11 Mechanical Vent 01/20/24 09:08 100 01/20/24 09:03 01/20/24 09:03 01/20/24 08:59 01/20/24 08:24 Nasal Cannula 6 01/20/24 08:18 Nasal Cannula 4 01/20/24 08:03 Nasal Cannula 4 01/20/24 07:49 Room Air 0 01/20/24 07:49 Nasal Cannula 2 01/20/24 07:33 Nasal Cannula 8 01/20/24 07:20 Room Air 01/20/24 07:05 01/20/24 07:05 Room Air 01/20/24 06:57 01/20/24 06:30 Room Air 01/20/24 06:01 01/20/24 05:42 Room Air 01/20/24 05:35 01/20/24 05:35 01/20/24 05:33 Room Air 01/20/24 05:30 Room Air 01/20/24 05:30 Room Air 01/20/24 05:22 Room Air 01/20/24 05:21 01/20/24 05:18 PG Care Time/CCT Total # of Minutes Spent Total Time Spent with Patient: Total time spent is greater than 50% in coordination of care (as documented) at patient's floor/unit and/or counseling patient: Coding Level of Care Code None Diagnoses Non-ischemic cardiomyopathy I42.8 Respiratory failure J96.90 History of alcohol abuse F10.11
[2024-01-20] MEDS ORDERED: INSULIN ASPART PER UNIT CHARGE SC SCH (18:00)
--- NOTE | 2024-01-20 18:25 | XCELERA ---
[id number] \\[email or web address]\[id number]
--- NOTE | 2024-01-20 19:31 | Cardiology Consultation ---
Date of Consultation January 20, 2024 Assessment & Plan (1) Cardiogenic shock: 2. Acute decompensated heart failure/HFrEF 3. PEA arrest 4. A-fib with RVR 5. Hypoxic respiratory failure 6. Elevated LFTs 7. Thrombocytopenia Patient here with decompensated heart failure, cardiogenic shock in setting of worsened, now severe LV dysfunction. Suspect LV function decline related to medical nonadherence, potentially also alcohol induced. Low suspicion for ischemic etiology. Tachycardia induced card iomyopathy also possible but suspect presenting AF with RVR more secondary to decompensation rather than cause. Fortunately patient has responded remarkably well to ICU care today with vasopressors/inotropes and diuretics. No need for additional mechanical circulatory support or repeat ischemic evaluation at this time. --For now continue to wean epi/vasopressors as able. --Continue IV diuresis --Increase or epi or try dobutamine if reduced urine output/renal function --Amiodarone can be stopped after load --IV heparin if no further concerns for bleeding Will continue to follow. Appreciate ICU and hospital medicine care. History of Present Illness Attending Physician: Ba Britton MD History of Present Illness Mr. Xavier is a 58-year-old man known to me from the outpatient setting who was admitted with acute decompensated heart failure and cardiogenic shock. He has a history of HFrEF/NICM(cath 2011 normal coronaries) EF as low as 20-25% in 2013. Last heart failure admission 09/2022 at which time EF around 40% and responded quickly to IV diuretics, BiPAP. Also with a history of paroxysmal A- fib with RVR, prior LV thrombus and hypertension. Presented to ED with 2 days of heart racing, shortness of breath and inability to sleep. Reported that he been off his medications for last due to inability to afford. Noted to be in A-fib with RVR with heart rates as high as 160s. Initial BP in the 100s, normal response to IV metoprolol, IV digoxin and magnesium. Seen on 815 this morning by me at which time electrical cardioversion being considered. Patient appeared to be in respiratory distress but was hemodynamically stable. As has been off anticoagulation electrical cardioversion deferred. Given IV Lasix and amnio bolus for rate control. Converted soon after to sinus bradycardia and per report soon after patient became unresponsive and had PEA arrest requiring epinephrine x 3 before ROSC. Lactate elevated at 5.3. Elevated LFTs. Post ROSC started on norepinephrine, vasopressin and later epi drip added repeat echocardiogram showed significant worsening of LV dysfunction with EF 20-25%. Over the course of the day norepinephrine/vasopressin weaned off. Now on just low-dose epi. Lactate down to 3.0. Urine output 1300. Allergies Allergy/AdvReac Type Severity Reaction Status Date / Time No Known Allergies Allergy Unverified 08/10/23 15:40 Home Medications Medication Instructions Recorded Confirmed Type rivaroxaban 20 mg tablet (Xarelto) 20 mg PO DAILY 90 days #90 tabs 01/19/23 08/10/23 Rx furosemide 20 mg tablet (Lasix) 20 mg PO BID #180 tabs 01/22/23 08/10/23 Rx carvedilol 25 mg tablet 25 mg PO BID #180 tabs 02/02/23 08/10/23 Rx sacubitril 24 mg-valsartan 26 mg 1 tab PO BID #60 tabs 07/02/23 08/10/23 Rx tablet (Entresto) azelastine 137 mcg (0.1 %) nasal 1 spray intranasal BID PRN 08/10/23 08/10/23 History spray Patient History Medical History Elevated troponin Acute respiratory failure with hypoxia Hypertensive emergency Elevated troponin Micturition syncope Surgical History No pertinent past surgical history Family History Mother Heart disease Father Coronary heart disease H/O aortic valve replacement Brother Coronary heart disease Social History Smoking Status: Current every day smoker Tobacco Type: Cigarettes Cigarettes Per Day: 20; Second Hand Exposure: No; Do You Dip or Chew Tobacco: No; Preferred Language: Moroccan Communication Ability: Effective Electronic Security Specialist Required: No Beliefs That Will Affect Care: None Current Living Situation: Other Current Living Situation Comment: Intubated and sedated Feels Safe at Home: Yes Assistive Devices: None Review of Systems Review of Systems: Unobtainable due to endotracheal tube Physical Exam Physical Exam: General: Intubated sedated HEENT: Sclerae anicteric Lungs: Clear to anteriorly Cardiac: Regular, no murmurs Vascular: Femoral A-line in place Abdomen: Soft Extremities: Well perfused Results & Data Vital Signs (Past 12 Hours) Vital Signs Temp Pulse Pulse Resp BP BP Pulse Ox 01/20/24 17:20 85/61 L 01/20/24 17:20 85/61 L 01/20/24 17:15 104/76 01/20/24 17:06 99.0 F 85 20 92 01/20/24 17:05 102/80 01/20/24 17:03 99.0 F 86 20 93 01/20/24 17:00 103/86 01/20/24 16:55 104/85 01/20/24 16:55 104/85 01/20/24 16:54 98.8 F 86 20 93 01/20/24 16:51 98.8 F 86 20 94 01/20/24 16:50 105/84 01/20/24 16:50 105/84 01/20/24 16:45 105/86 01/20/24 16:40 105/83 01/20/24 16:40 105/83 01/20/24 16:35 111/85 01/20/24 16:25 108/88 01/20/24 16:15 98.4 F 84 21 97 01/20/24 16:15 104/82 01/20/24 16:15 104/82 01/20/24 16:12 98.4 F 84 20 96 01/20/24 16:10 100/79 01/20/24 16:10 100/79 01/20/24 16:05 91/69 L 01/20/24 16:05 91/69 L 01/20/24 15:57 98.2 F 82 26 H 97 01/20/24 15:55 84/69 L 01/20/24 15:51 98.1 F 82 26 H 97 01/20/24 15:50 86/66 L 01/20/24 15:48 98.1 F 82 26 H 97 01/20/24 15:45 90/67 L 01/20/24 15:39 97.9 F 81 26 H 97 01/20/24 15:35 95/74 L 01/20/24 15:35 95/74 L 01/20/24 15:33 97.9 F 81 26 H 97 01/20/24 15:30 88/73 L 01/20/24 15:30 88/73 L 01/20/24 15:30 88/73 L 01/20/24 15:30 88/73 L 01/20/24 15:25 93/76 L 01/20/24 15:24 97.9 F 83 26 H 93 01/20/24 15:20 104/67 01/20/24 15:20 104/67 01/20/24 15:15 82/69 L 01/20/24 15:15 97.5 F L 77 26 H 01/20/24 15:13 77 26 H 99 01/20/24 15:05 94/75 L 01/20/24 15:03 97.5 F L 77 26 H 01/20/24 15:00 93/73 L 01/20/24 15:00 93/73 L 01/20/24 14:29 01/20/24 14:20 102/82 01/20/24 14:20 102/82 01/20/24 14:18 97.0 F L 78 26 H 100 01/20/24 14:15 105/75 01/20/24 14:15 105/75 01/20/24 14:15 96.8 F L 75 26 H 100 01/20/24 14:05 91/72 L 01/20/24 14:05 91/72 L 01/20/24 14:05 91/72 L 01/20/24 14:05 91/72 L 01/20/24 14:00 92/70 L 01/20/24 14:00 96.8 F L 71 26 H 100 01/20/24 13:50 93/67 L 01/20/24 13:50 93/67 L 01/20/24 13:50 93/67 L 01/20/24 13:50 93/67 L 01/20/24 13:48 96.6 F L 69 26 H 100 01/20/24 13:45 101/72 01/20/24 13:45 101/72 01/20/24 13:45 101/72 01/20/24 13:45 96.6 F L 71 26 H 100 01/20/24 13:40 109/79 01/20/24 13:40 109/79 01/20/24 13:36 96.6 F L 72 26 H 100 01/20/24 13:35 106/83 01/20/24 13:30 111/83 01/20/24 13:30 111/83 01/20/24 13:30 96.6 F L 71 26 H 100 01/20/24 13:26 71 01/20/24 13:25 109/80 01/20/24 13:25 109/80 01/20/24 13:10 107/82 01/20/24 13:06 96.6 F L 70 26 H 98 01/20/24 13:05 106/81 01/20/24 13:05 106/81 01/20/24 13:05 106/81 01/20/24 13:03 96.6 F L 70 26 H 98 01/20/24 13:00 01/20/24 13:00 109/77 01/20/24 13:00 109/77 01/20/24 12:57 96.6 F L 69 26 H 98 01/20/24 12:55 104/77 01/20/24 12:55 104/77 01/20/24 12:55 104/77 01/20/24 12:54 96.6 F L 69 26 H 97 01/20/24 12:50 101/73 01/20/24 12:50 101/73 01/20/24 12:45 96.6 F L 68 26 H 97 01/20/24 12:45 99/71 L 01/20/24 12:45 99/71 L 01/20/24 12:45 99/71 L 01/20/24 12:40 94/70 L 01/20/24 12:25 100/79 01/20/24 12:20 87/65 L 01/20/24 12:18 96.6 F L 68 26 H 94 01/20/24 12:15 98/71 L 01/20/24 12:15 98/71 L 01/20/24 12:15 98/71 L 01/20/24 12:03 96.6 F L 70 26 H 88 L 01/20/24 12:00 105/80 01/20/24 12:00 105/80 01/20/24 12:00 105/80 01/20/24 11:57 80/61 L 01/20/24 11:55 76/58 L 01/20/24 11:54 96.6 F L 73 26 H 89 L 01/20/24 11:50 82/59 L 01/20/24 11:45 91/63 L 01/20/24 11:45 91/63 L 01/20/24 11:42 96.6 F L 73 26 H 01/20/24 11:40 95/68 L 01/20/24 11:40 95/68 L 01/20/24 11:35 114/73 01/20/24 11:33 96.8 F L 77 26 H 91 01/20/24 11:30 128/86 01/20/24 11:30 128/86 01/20/24 11:30 128/86 01/20/24 11:30 128/86 01/20/24 11:27 96.8 F L 83 27 H 87 L 01/20/24 11:25 149/104 H 01/20/24 11:25 149/104 H 01/20/24 11:16 141/94 H 01/20/24 11:05 138/106 H 01/20/24 11:05 01/20/24 11:04 01/20/24 10:55 132/94 01/20/24 10:54 97.0 F L 78 27 H 86 L 01/20/24 10:52 132/98 01/20/24 10:52 132/98 01/20/24 10:52 132/98 01/20/24 10:51 97.0 F L 78 27 H 88 L 01/20/24 10:50 133/100 01/20/24 10:48 97.0 F L 79 27 H 91 01/20/24 10:46 134/95 01/20/24 10:46 134/95 01/20/24 10:46 134/95 01/20/24 10:41 107/92 01/20/24 10:36 125/95 01/20/24 10:30 133/97 01/20/24 10:25 107/81 01/20/24 10:24 97.0 F L 73 26 H 93 01/20/24 10:23 90/70 L 01/20/24 10:22 68/53 L 01/20/24 10:15 69/39 L 01/20/24 10:13 69/47 L 01/20/24 10:12 97.2 F L 77 26 H 01/20/24 10:10 67/51 L 01/20/24 10:10 67/51 L 01/20/24 10:08 71/52 L 01/20/24 10:07 100 H 26 H 77 L 01/20/24 10:04 71/54 L 01/20/24 09:15 89 34 H 94 01/20/24 09:14 110/87 01/20/24 09:14 110/87 01/20/24 09:12 117/90 01/20/24 09:12 117/90 01/20/24 09:11 94 H 34 H 124/87 88 L 01/20/24 09:08 89 26 H 86 L 01/20/24 09:03 112/88 01/20/24 09:03 112/88 01/20/24 08:59 137/109 H 01/20/24 08:24 150 H 38 H 149/113 H 90 01/20/24 08:18 130 H 33 H 90/72 L 88 L 01/20/24 08:03 128 H 42 H 120/104 H 86 L 01/20/24 07:49 88 L 01/20/24 07:49 141 H 32 H 129/103 H 93 01/20/24 07:33 143 H 27 H 129/103 H 89 L 01/20/24 07:20 139 H 26 H 143/101 H 97 01/20/24 07:05 140 H 26 H 107/92 97 01/20/24 07:05 136 H 23 107/92 95 Pulse Ox O2 Del Method O2 Del Method O2 Flow Rate FiO2 01/20/24 17:20 01/20/24 17:20 01/20/24 17:15 01/20/24 17:06 01/20/24 17:05 01/20/24 17:03 01/20/24 17:00 01/20/24 16:55 01/20/24 16:55 01/20/24 16:54 01/20/24 16:51 01/20/24 16:50 01/20/24 16:50 01/20/24 16:45 01/20/24 16:40 01/20/24 16:40 01/20/24 16:35 01/20/24 16:25 01/20/24 16:15 01/20/24 16:15 01/20/24 16:15 01/20/24 16:12 01/20/24 16:10 01/20/24 16:10 01/20/24 16:05 01/20/24 16:05 01/20/24 15:57 01/20/24 15:55 01/20/24 15:51 01/20/24 15:50 01/20/24 15:48 01/20/24 15:45 01/20/24 15:39 01/20/24 15:35 01/20/24 15:35 01/20/24 15:33 01/20/24 15:30 01/20/24 15:30 01/20/24 15:30 01/20/24 15:30 01/20/24 15:25 01/20/24 15:24 01/20/24 15:20 01/20/24 15:20 01/20/24 15:15 01/20/24 15:15 01/20/24 15:13 01/20/24 15:05 01/20/24 15:03 01/20/24 15:00 01/20/24 15:00 01/20/24 14:29 01/20/24 14:20 01/20/24 14:20 01/20/24 14:18 01/20/24 14:15 01/20/24 14:15 01/20/24 14:15 01/20/24 14:05 01/20/24 14:05 01/20/24 14:05 01/20/24 14:05 01/20/24 14:00 01/20/24 14:00 01/20/24 13:50 01/20/24 13:50 01/20/24 13:50 01/20/24 13:50 01/20/24 13:48 01/20/24 13:45 01/20/24 13:45 01/20/24 13:45 01/20/24 13:45 01/20/24 13:40 01/20/24 13:40 01/20/24 13:36 01/20/24 13:35 01/20/24 13:30 01/20/24 13:30 01/20/24 13:30 01/20/24 13:26 01/20/24 13:25 01/20/24 13:25 01/20/24 13:10 01/20/24 13:06 01/20/24 13:05 01/20/24 13:05 01/20/24 13:05 01/20/24 13:03 01/20/24 13:00 Mechanical Vent 100 01/20/24 13:00 01/20/24 13:00 01/20/24 12:57 01/20/24 12:55 01/20/24 12:55 01/20/24 12:55 01/20/24 12:54 01/20/24 12:50 01/20/24 12:50 01/20/24 12:45 01/20/24 12:45 01/20/24 12:45 01/20/24 12:45 01/20/24 12:40 01/20/24 12:25 01/20/24 12:20 01/20/24 12:18 01/20/24 12:15 01/20/24 12:15 01/20/24 12:15 01/20/24 12:03 01/20/24 12:00 01/20/24 12:00 01/20/24 12:00 01/20/24 11:57 01/20/24 11:55 01/20/24 11:54 01/20/24 11:50 01/20/24 11:45 01/20/24 11:45 01/20/24 11:42 01/20/24 11:40 01/20/24 11:40 01/20/24 11:35 01/20/24 11:33 01/20/24 11:30 01/20/24 11:30 01/20/24 11:30 01/20/24 11:30 01/20/24 11:27 01/20/24 11:25 01/20/24 11:25 01/20/24 11:16 01/20/24 11:05 01/20/24 11:05 Mechanical Vent 01/20/24 11:04 89 L Mechanical Vent 01/20/24 10:55 01/20/24 10:54 01/20/24 10:52 01/20/24 10:52 01/20/24 10:52 01/20/24 10:51 01/20/24 10:50 01/20/24 10:48 01/20/24 10:46 01/20/24 10:46 01/20/24 10:46 01/20/24 10:41 01/20/24 10:36 01/20/24 10:30 01/20/24 10:25 01/20/24 10:24 01/20/24 10:23 01/20/24 10:22 01/20/24 10:15 01/20/24 10:13 01/20/24 10:12 01/20/24 10:10 01/20/24 10:10 01/20/24 10:08 01/20/24 10:07 100 01/20/24 10:04 01/20/24 09:15 01/20/24 09:14 01/20/24 09:14 01/20/24 09:12 01/20/24 09:12 01/20/24 09:11 Mechanical Vent 01/20/24 09:08 100 01/20/24 09:03 01/20/24 09:03 01/20/24 08:59 01/20/24 08:24 Nasal Cannula 6 01/20/24 08:18 Nasal Cannula 4 01/20/24 08:03 Nasal Cannula 4 01/20/24 07:49 Room Air 0 01/20/24 07:49 Nasal Cannula 2 01/20/24 07:33 Nasal Cannula 8 01/20/24 07:20 Room Air 01/20/24 07:05 01/20/24 07:05 Room Air PG Care Time/CCT Total # of Minutes Spent Total Time Spent with Patient: Total time spent is greater than 50% in coordination of care (as documented) at patient's floor/unit and/or counseling patient: Coding Level of Care Code 62205 IN/OBS CONSULT LVL 5,80M Diagnoses Cardiogenic shock R57.0
[2024-01-20 20:12] LABS: BUN Creatinine Ratio 16.2 (10-20); Calcium 7.5 mg/dl (8.6-10.3); Creatinine Clr Calc Pharmacy 103.2 ml/min; Est GFR (Non-African American) 105.3 ml/min; Magnesium 1.9 mg/dl (1.7-2.4); Potassium 3.7 mmol/L (3.5-5.1)
[2024-01-20 20:23] LABS: Hematocrit (blood only) 40.5 % (42.0-52.0); Hemoglobin 14.3 g/dl (14.0-18.0); Mean Corpuscular Hemoglobin 34.5 pg (25.0-34.0); Mean Corpuscular Hgb Conc 35.3 g/dL (32.0-36.0); Mean Corpuscular Volume 97.8 fL (80.0-100.0); Mean Platelet Volume 10.8 fL (9.4-12.4); Platelet Count 85 K/uL (130-400); RDW Coefficient of Variation 13.4 % (11.5-14.5); RDW Standard Deviation 48.1 fL (36.4-46.3); Red Blood Count 4.14 M/uL (4.70-6.10); White Blood Count 9.28 K/ul (4.8-10.8)
[2024-01-20 20:27] LABS: Basophils # (auto) 0.03 K/uL (0.00-0.20); Basophils % (auto) 0.3 %; Eosinophils # (auto) 0.01 K/uL (0.00-0.50); Eosinophils % (auto) 0.1 %; Immature Granulocytes # (auto) 0.03 K/uL (0.01-0.20); Immature Granulocytes % (auto) 0.3 %; Lymphocytes # (auto) 0.43 K/uL (1.20-3.40); Lymphocytes % (auto) 4.6 %; Monocytes % (auto) 4.3 %; Neutrophils # (auto) 8.38 K/uL (1.40-6.50); Neutrophils % (auto) 90.4 %; Pappenheimer Bodies 1+; Platelet Estimate Decreased (Normal); Toxic Vacuolation 1+
[2024-01-20] MEDS: ICU ELECTROLYTE REPLACEMENT PROTOCOL SCH (21:07)
[2024-01-20 22:01] LABS: Troponin I High Sensitivity 226.8 pg/ml (0-20)
[2024-01-20] MEDS: POTASSIUM CHLORIDE / WTR 20 MEQ/100 ML PLCT IV ONE (22:01)
[2024-01-21] MEDS: POTASSIUM CHLORIDE / WTR 20 MEQ/100 ML PLCT IV ONE (00:16)
[2024-01-21 03:11] LABS: Basophils # (auto) 0.04 K/uL (0.00-0.20); Basophils % (auto) 0.5 %; Hemoglobin 13.5 g/dl (14.0-18.0); Immature Granulocytes # (auto) 0.01 K/uL (0.01-0.20); Immature Granulocytes % (auto) 0.1 %; Lymphocytes # (auto) 0.87 K/uL (1.20-3.40); Lymphocytes % (auto) 10.5 %; Mean Corpuscular Hgb Conc 35.5 g/dL (32.0-36.0); Mean Corpuscular Volume 98.4 fL (80.0-100.0); Mean Platelet Volume 10.8 fL (9.4-12.4); Monocytes # (auto) 0.32 K/uL (0.11-0.59); Monocytes % (auto) 3.9 %; Neutrophils # (auto) 7.03 K/uL (1.40-6.50); Platelet Count 91 K/uL (130-400); RDW Coefficient of Variation 13.5 % (11.5-14.5); RDW Standard Deviation 48.7 fL (36.4-46.3); Red Blood Count 3.86 M/uL (4.70-6.10); White Blood Count 8.27 K/ul (4.8-10.8)
[2024-01-21 03:29] LABS: Albumin Globulin Ratio 2.1 (0.9-2); Albumin Level 3.2 gm/dl (3.4-5.0); BUN Creatinine Ratio 13.8 (10-20); Bilirubin,Total 3.1 mg/dl (0.2-1.0); Calcium 7.7 mg/dl (8.6-10.3); Creatinine Clr Calc Pharmacy 107.9 ml/min; Est GFR (African American) 124.3 ml/min; Est GFR (Non-African American) 107.2 ml/min; Globulin 1.5 gm/dl (2.5-4.0); Magnesium 2.3 mg/dl (1.7-2.4); Potassium 4.5 mmol/L (3.5-5.1); Total Protein 4.7 gm/dl (6.0-8.3)
[2024-01-21 04:11] LABS: Fibrinogen 240 mg/dl (184-400); INR 1.2 (0.9-1.1); Partial Thromboplastin Ratio 1.1; Partial Thromboplastin Time 30 Seconds (21-31); Prothrombin Time 13.1 Seconds (9.0-12.0)
[2024-01-21 07:28] LABS: Estimated Average Glucose 111 mg/dl; Hemoglobin A1C 5.5 % (4.5-5.6)
--- NOTE | 2024-01-21 07:33 | Critical Care Progress Note ---
Date of Service January 21, 2024 Assessment & Plan (1) Elevated troponin: (2) Atrial flutter with rapid ventricular response: (3) Acute on chronic HFrEF (heart failure with reduced ejection fraction): (4) Current smoker: (5) Non-ischemic cardiomyopathy: (6) Cardiogenic shock: (7) High anion gap metabolic acidosis: (8) NAHUN (acute kidney injury): (9) Transaminitis: (10) Bilirubinemia: (11) Aspiration pneumonia: (12) Pulmonary edema: Plan Reason Critically Ill: 58-year-old male presented to hospital with complaints of shortness of breath. Sent to ICU for cardiac arrest, intubated Past medical history: Systolic CHF, A-fib on Xarelto, nonischemic cardiomyopathy, hypertension Neuro - [facility] ICU: Unable to assess Propofol and fentanyl for sedation --New onset seizure Etiology is not clear Got a loading dose of Keppra on 01/20/2024 TSH within normal limit CT of the head 01/20/2024 negative for any intracranial findings. Cardiac - -- Cardiac arrest with cardiogenic shock Etiology is likely cardiac/systolic CHF Will continue with inotropic support --A-fib with RVR Currently rate controlled Did get amiodarone bolus in the ED Not on amiodarone drip --Elevated troponins Likely type II OK Trending down --Systolic CHF Decrease in EF from 40% to 25% 2D echo 01/20/2024: EF 20-25%, normal RV, mildly reduced RV function, PASP 40-45 mmHg, mild MR Respiratory - CT chest 01/20/2024 personally reviewed: Centrilobular emphysema appreciated bilaterally Interlobular thickening appreciated bilaterally Consolidative process appreciated bilateral lower lobes Small bilateral pleural effusion No significant mediastinal lymphadenopathy -- VDRF For airway protection secondary to cardiac arrest Continue with ventilatory support Keep RASS -1 Daily sedation holidays and SBT's Chlorhexidine mouthwash --Hemoptysis Seems to be coming from pulmonary edema --Hypoxic respiratory failure Likely secondary to pulmonary edema with possible aspiration Diuresis as tolerated Continue with antibiotic GI - -- Transaminitis with hyperbilirubinemia Likely from hypotension Continue to trend RENAL/LYTES - -- NAHUN Monitor BUN/creatinine Avoid nephrotoxic medications Strict ins and outs --Hyponatremia Serum osmolality 274 TSH within normal limit -- S/p HAGMA Delta-delta: Pure anion Likely sec to lactic acidosis Monitor - -- Continue with Burk catheter ENDO - -- ICU hyperglycemia protocol HEME - -- Thrombocytopenia Continue to monitor ID - -- Aspiration pneumonia Continue with antibiotics Follow sputum culture --Prophylaxis VTE: Xarelto at home, IPC's given the thrombocytopenia GI: Pantoprazole Lines: Right femoral TLC and arterial, peripheral Diet: Trophic tube feeds Plan: In/out: 1.2 L, urine output 1795 AB.41/36/77 on PEEP of 10, 50% I went down on PEEP to 8, decrease the respiratory to 16 Will give a dose of Lasix today Patient mentally is still not tracking or following commands. If there is no improvement with decreasing sedation then I will order a CT head to be done tomorrow He is breathing over the vent. Still bringing up pinkish frothy phlegm on suctioning of the ET tube again going with pulmonary edema. No indication for bronchoscopy Given the thrombocytopenia as well as pinkish frothy phlegm, continue to hold heparin drip. I have personally spent 39 minutes of critical care time in the direct management of this patient. This is a life/limb threatening event. This includes time spent evaluating patient, direct bedside care, chart review, placing orders, interpretation of diagnostic studies, discussion with consultants, patient, and family members, as well as other required patient management activities. This time is exclusive of all separately billable procedures, and teaching time and separate from and in addition to any other critical care service time. Admission and Anticipated Discharge Date Admission Date: January 20, 2024 Subjective Patient seen and examined at bedside. No acute distress, no adverse events overnight He was on 25 propofol and 25 of fentanyl at the time of examination He was breathing over the vent RASS -2, opening his eyes to sternal rub but not tracking or following any commands. He was on 0.06 of different with MAP in the 70s Spiking fever, Tmax 38.1 Review of Systems 2 Review of Systems: Unobtainable due to endotracheal tube Physical Exam 2 Physical Exam: Constitutional: In respiratory distress HEENT: PERRLA, sluggish pupillary response Respiratory system: Decreased air entry bilaterally, no rhonchi, no wheeze, mild crackles bilateral lower lobes CVS: S1-S2 positive, no murmurs or gallops Abdomen: Soft, nontender, nondistended, positive bowel sounds x4 Extremities: +1 pulses bilaterally radialis/ dorsalis pedis, no cyanosis, no edema, cold extremities Neuro: Breathing over the vent, not following any commands Psych: Unable to assess G/U: Positive Burk Skin: no rashes, warm and dry Lymphatic: no cervical or axillary lymphadenopathy Results & Data Results & Data Vital Signs (Past 12 Hours) Vital Signs Temp Pulse Resp BP Pulse Ox Pulse Ox O2 Del Method 01/21/24 06:30 38.1 C H 85 20 100 01/21/24 06:30 92/70 L 01/21/24 06:30 92/70 L 01/21/24 06:30 92/70 L 01/21/24 06:09 38.1 C H 80 20 99 01/21/24 06:00 84/67 L 01/21/24 06:00 84/67 L 01/21/24 06:00 84/67 L 01/21/24 05:57 38.0 C H 85 20 99 01/21/24 05:33 38.0 C H 82 20 99 01/21/24 05:30 81/60 L 01/21/24 05:30 81/60 L 01/21/24 05:27 37.9 C H 82 20 100 01/21/24 05:03 37.8 C H 82 17 99 01/21/24 05:00 86/61 L 01/21/24 05:00 86/61 L 01/21/24 04:57 37.8 C H 85 22 99 01/21/24 04:30 37.7 C H 87 20 98 01/21/24 04:30 89/71 L 01/21/24 04:30 89/71 L 01/21/24 04:15 84 20 97 01/21/24 04:03 37.6 C H 87 21 98 01/21/24 04:00 92/63 L 01/21/24 04:00 92/63 L 01/21/24 03:59 01/21/24 03:59 97 01/21/24 03:59 86 102/56 L 01/21/24 03:30 96/61 L 01/21/24 03:24 37.3 C 83 20 97 01/21/24 03:00 84/69 L 01/21/24 03:00 37.2 C 83 20 97 01/21/24 02:30 37.0 C 83 20 96 09/13/24 02:30 88/70 L 01/21/24 02:30 88/70 L 01/21/24 02:21 36.9 C 85 20 96 01/21/24 02:00 101/74 01/21/24 02:00 101/74 01/21/24 02:00 101/74 01/21/24 01:57 36.8 C 85 25 H 95 01/21/24 01:45 36.7 C 87 22 96 01/21/24 01:30 101/81 01/21/24 01:27 36.8 C 84 18 93 01/21/24 01:25 88/72 L 01/21/24 01:25 88/72 L 01/21/24 01:15 37.0 C 87 23 89 L 01/21/24 01:15 90/76 L 01/21/24 01:10 89/71 L 01/21/24 01:10 89/71 L 01/21/24 01:10 89/71 L 01/21/24 01:05 100/67 01/21/24 01:03 37.1 C 84 16 94 01/21/24 01:00 96/75 L 01/21/24 01:00 96/75 L 01/21/24 01:00 96/75 L 01/21/24 00:45 99/71 L 01/21/24 00:40 91/70 L 01/21/24 00:39 37.2 C 81 20 95 01/21/24 00:35 95/70 L 01/21/24 00:35 95/70 L 01/21/24 00:30 98/73 L 01/21/24 00:30 98/73 L 01/21/24 00:30 37.3 C 80 20 95 01/21/24 00:25 92/72 L 01/21/24 00:20 90/72 L 01/21/24 00:18 37.4 C 81 20 96 01/21/24 00:15 93/71 L 01/21/24 00:12 37.4 C 81 20 97 01/21/24 00:11 89/71 L 01/21/24 00:11 89/71 L 01/21/24 00:11 89/71 L 01/21/24 00:05 91/72 L 01/21/24 00:00 01/21/24 00:00 94 01/21/24 00:00 79 108/65 01/20/24 23:57 37.4 C 80 20 98 01/20/24 23:55 90/72 L 01/20/24 23:55 90/72 L 01/20/24 23:55 Mechanical Vent 01/20/24 23:53 79 01/20/24 23:48 37.5 C 79 20 99 01/20/24 23:45 91/71 L 01/20/24 23:45 91/71 L 01/20/24 23:30 37.6 C H 78 20 98 01/20/24 23:25 92/72 L 01/20/24 23:25 92/72 L 01/20/24 23:24 37.6 C H 79 20 97 01/20/24 23:20 90/73 L 01/20/24 23:20 90/73 L 01/20/24 23:20 90/73 L 01/20/24 23:18 37.7 C H 80 20 97 01/20/24 23:15 92/71 L 01/20/24 23:15 92/71 L 01/20/24 23:15 37.7 C H 82 20 97 01/20/24 23:10 93/72 L 01/20/24 23:10 93/72 L 01/20/24 23:03 37.7 C H 82 20 96 01/20/24 23:00 94/76 L 01/20/24 23:00 94/76 L 01/20/24 23:00 94/76 L 01/20/24 22:51 37.8 C H 01/20/24 22:50 97/72 L 01/20/24 22:50 97/72 L 01/20/24 22:45 83 21 98 01/20/24 22:30 90/68 L 01/20/24 22:25 84/69 L 01/20/24 22:21 37.9 C H 81 20 99 01/20/24 22:20 86/67 L 01/20/24 22:15 38.0 C H 79 20 98 01/20/24 22:10 81/68 L 01/20/24 22:10 81/68 L 01/20/24 22:10 81/68 L 01/20/24 22:06 38.0 C H 83 20 98 01/20/24 22:05 85/67 L 01/20/24 22:05 85/67 L 01/20/24 22:05 85/67 L 01/20/24 21:55 85/69 L 01/20/24 21:45 38.0 C H 85 20 98 01/20/24 21:45 88/70 L 01/20/24 21:45 88/70 L 01/20/24 21:40 88/69 L 01/20/24 21:15 88/71 L 01/20/24 21:12 38.0 C H 83 21 95 01/20/24 21:10 88/68 L 01/20/24 21:09 38.0 C H 83 21 95 01/20/24 21:05 85/66 L 01/20/24 21:05 85/66 L 01/20/24 21:03 38.0 C H 82 21 95 01/20/24 21:00 87/66 L 01/20/24 20:57 38.0 C H 80 20 96 01/20/24 20:55 82/64 L 01/20/24 20:55 82/64 L 01/20/24 20:51 38.0 C H 80 20 96 01/20/24 20:50 80/62 L 01/20/24 20:50 80/62 L 01/20/24 20:40 73/61 L 01/20/24 20:36 37.9 C H 78 20 94 01/20/24 20:35 76/58 L 01/20/24 20:35 76/58 L 01/20/24 20:35 76/58 L 01/20/24 20:30 75/63 L 01/20/24 20:25 79/66 L 01/20/24 20:24 37.9 C H 80 20 96 01/20/24 20:20 82/68 L 01/20/24 20:15 87/68 L 01/20/24 20:13 84 21 99 01/20/24 20:10 91/70 L 01/20/24 20:10 91/70 L 01/20/24 20:10 91/70 L 01/20/24 20:05 85/69 L 01/20/24 19:57 37.9 C H 84 20 98 01/20/24 19:55 94/73 L 01/20/24 19:55 94/73 L 01/20/24 19:54 37.9 C H 84 20 98 01/20/24 19:50 91/73 L 01/20/24 19:45 91/75 L 01/20/24 19:45 37.9 C H 83 20 98 01/20/24 19:40 93/74 L 01/20/24 19:39 37.8 C H 85 20 98 01/20/24 19:35 93/77 L 01/20/24 19:35 93/77 L 01/20/24 19:35 93/77 L 01/20/24 19:31 37.8 C H O2 Del Method FiO2 01/21/24 06:30 01/21/24 06:30 01/21/24 06:30 01/21/24 06:30 01/21/24 06:09 01/21/24 06:00 01/21/24 06:00 01/21/24 06:00 01/21/24 05:57 01/21/24 05:33 01/21/24 05:30 01/21/24 05:30 01/21/24 05:27 01/21/24 05:03 01/21/24 05:00 01/21/24 05:00 01/21/24 04:57 01/21/24 04:30 01/21/24 04:30 01/21/24 04:30 01/21/24 04:15 50 01/21/24 04:03 01/21/24 04:00 01/21/24 04:00 01/21/24 03:59 50 01/21/24 03:59 Mechanical Vent 01/21/24 03:59 01/21/24 03:30 01/21/24 03:24 01/21/24 03:00 01/21/24 03:00 01/21/24 02:30 01/21/24 02:30 01/21/24 02:30 01/21/24 02:21 01/21/24 02:00 01/21/24 02:00 01/21/24 02:00 01/21/24 01:57 01/21/24 01:45 01/21/24 01:30 01/21/24 01:27 01/21/24 01:25 01/21/24 01:25 01/21/24 01:15 01/21/24 01:01/21/24 01:10 01/21/24 01:10 01/21/24 01:10 01/21/24 01:05 01/21/24 01:03 01/21/24 01:00 01/21/24 01:00 01/21/24 01:00 01/21/24 00:45 01/21/24 00:40 01/21/24 00:39 01/21/24 00:35 01/21/24 00:35 01/21/24 00:30 01/21/24 00:30 01/21/24 00:30 01/21/24 00:25 01/21/24 00:20 01/21/24 00:18 01/21/24 00:15 01/21/24 00:12 01/21/24 00:11 01/21/24 00:11 01/21/24 00:11 01/21/24 00:05 01/21/24 00:00 50 01/21/24 00:00 Mechanical Vent 01/21/24 00:00 01/20/24 23:57 01/20/24 23:55 01/20/24 23:55 01/20/24 23:55 50 01/20/24 23:53 01/20/24 23:48 01/20/24 23:45 01/20/24 23:45 01/20/24 23:30 01/20/24 23:25 01/20/24 23:25 01/20/24 23:24 01/20/24 23:20 01/20/24 23:20 01/20/24 23:20 01/20/24 23:18 01/20/24 23:15 01/20/24 23:15 01/20/24 23:15 01/20/24 23:10 01/20/24 23:10 01/20/24 23:03 01/20/24 23:00 01/20/24 23:00 01/20/24 23:00 01/20/24 22:51 01/20/24 22:50 01/20/24 22:50 01/20/24 22:45 50 01/20/24 22:30 01/20/24 22:25 01/20/24 22:21 01/20/24 22:20 01/20/24 22:15 01/20/24 22:10 01/20/24 22:10 01/20/24 22:10 01/20/24 22:06 01/20/24 22:05 01/20/24 22:05 01/20/24 22:05 01/20/24 21:55 01/20/24 21:45 01/20/24 21:45 01/20/24 21:45 01/20/24 21:40 01/20/24 21:15 01/20/24 21:12 01/20/24 21:10 01/20/24 21:09 01/20/24 21:05 01/20/24 21:05 01/20/24 21:03 01/20/24 21:00 01/20/24 20:57 01/20/24 20:55 01/20/24 20:55 01/20/24 20:51 01/20/24 20:50 01/20/24 20:50 01/20/24 20:40 01/20/24 20:36 01/20/24 20:35 01/20/24 20:35 01/20/24 20:35 01/20/24 20:30 01/20/24 20:25 01/20/24 20:24 01/20/24 20:20 01/20/24 20:15 01/20/24 20:13 50 01/20/24 20:10 01/20/24 20:10 01/20/24 20:10 01/20/24 20:05 01/20/24 19:57 01/20/24 19:55 01/20/24 19:55 01/20/24 19:54 01/20/24 19:50 01/20/24 19:45 01/20/24 19:45 01/20/24 19:40 01/20/24 19:39 01/20/24 19:35 01/20/24 19:35 01/20/24 19:35 01/20/24 19:31 Laboratory Results 01/21/24 02:50 01/21/24 02:50 Coding Level of Care Code 14725 CRITICAL CARE 1ST 30-74M Diagnoses Elevated troponin R77.8 Atrial flutter with rapid ventricular response I48.92 Acute on chronic HFrEF (heart failure with reduced ejection fraction) I50.23 Current smoker F17.200 Non-ischemic cardiomyopathy I42.8 Cardiogenic shock R57.0 High anion gap metabolic acidosis E87.29 NAHUN (acute kidney injury) N17.9 Transaminitis R74.01 Bilirubinemia E80.6 Aspiration pneumonia J69.0 Pulmonary edema J81.1
--- NOTE | 2024-01-21 07:33 | Hospitalist Progress Note ---
Date of Service January 21, 2024 Assessment & Plan (1) Non-ischemic cardiomyopathy: Plan: Elevated troponin/atrial flutter with RVR/history of paroxysmal atrial fibrillation and A-fib with RVR/hypertension/nonischemic cardiomyopathy- cardiopulmonary resuscitation with cpr for decompensated cardiogenic shock transfer to icu for ventilation, amiodarone gtt continues for possible seizure Keppra given elevated lft consistent with shock liver fever with concern for aspiration pneumonia has required pressors may consider dobutamine in the future CT head without acute changes heparin gtt held due to hemoptysis assumed to be traumatic from cpr, I witnessed intubation and was not traumatic nor was there bloody secretions unclear if elevated troponin was nstemi or demand ischemia, now after cpr will be difficult to tell (2) Respiratory failure: Plan: required intubation and ventilation sedated on CT chest likely aspiration , on Zosyn (3) History of alcohol abuse: Plan: unclear of last drink, did get bananna bag, and is on thiamine also tobacco abuse Admission and Anticipated Discharge Date Admission Date: January 20, 2024 Subjective Patient seen and examined at bedside. He is ventilated but awakens he does blink eyes to command no acute distress, He was breathing over the vent Patient being treated for aspiration pneumonia he does have cardiomyopathy and blood pressures are soft may need to reengage with pressors and/or inotropic agent such as dobutamine Physical Exam Physical Exam: Awake does follow commands with his eyes Cardiac exam is regular Lungs are with coarse rhonchorous breath sounds bilaterally Abdomen with hypoactive bowel sounds and soft Extremities are without edema Results & Data Results & Data Vital Signs (Past 12 Hours) Vital Signs Temp Pulse Resp BP Pulse Ox Pulse Ox O2 Del Method 01/21/24 06:30 100.6 F H 85 20 100 01/21/24 06:30 92/70 L 01/21/24 06:30 92/70 L 01/21/24 06:30 92/70 L 01/21/24 06:09 100.6 F H 80 20 99 01/21/24 06:00 84/67 L 01/21/24 06:00 84/67 L 01/21/24 06:00 84/67 L 01/21/24 05:57 100.4 F H 85 20 99 01/21/24 05:33 100.4 F H 82 20 99 01/21/24 05:30 81/60 L 01/21/24 05:30 81/60 L 01/21/24 05:27 100.2 F H 82 20 100 01/21/24 05:03 100.0 F H 82 17 99 01/21/24 05:00 86/61 L 01/21/24 05:00 86/61 L 01/21/24 04:57 100.0 F H 85 22 99 01/21/24 04:30 99.9 F H 87 20 98 01/21/24 04:30 89/71 L 01/21/24 04:30 89/71 L 01/21/24 04:15 84 20 97 01/21/24 04:03 99.7 F H 87 21 98 01/21/24 04:00 92/63 L 01/21/24 04:00 92/63 L 01/21/24 03:59 01/21/24 03:59 97 01/21/24 03:59 86 102/56 L 01/21/24 03:30 96/61 L 01/21/24 03:24 99.1 F 83 20 97 01/21/24 03:00 84/69 L 01/21/24 03:00 99.0 F 83 20 97 01/21/24 02:30 98.6 F 83 20 96 01/21/24 02:30 88/70 L 01/21/24 02:30 88/70 L 01/21/24 02:21 98.4 F 85 20 96 01/21/24 02:00 101/74 01/21/24 02:00 101/74 01/21/24 02:00 101/74 01/21/24 01:57 98.2 F 85 25 H 95 01/21/24 01:45 98.1 F 87 22 96 01/21/24 01:30 101/81 01/21/24 01:27 98.2 F 84 18 93 01/21/24 01:25 88/72 L 01/21/24 01:25 88/72 L 01/21/24 01:15 98.6 F 87 23 89 L 01/21/24 01:15 90/76 L 01/21/24 01:10 89/71 L 01/21/24 01:10 89/71 L 01/21/24 01:10 89/71 L 01/21/24 01:05 100/67 01/21/24 01:03 98.8 F 84 16 94 01/21/24 01:00 96/75 L 01/21/24 01:00 96/75 L 01/21/24 01:00 96/75 L 01/21/24 00:45 99/71 L 01/21/24 00:40 91/70 L 01/21/24 00:39 99.0 F 81 20 95 01/21/24 00:35 95/70 L 01/21/24 00:35 95/70 L 01/21/24 00:30 98/73 L 01/21/24 00:30 98/73 L 01/21/24 00:30 99.1 F 80 20 95 01/21/24 00:25 92/72 L 01/21/24 00:20 90/72 L 01/21/24 00:18 99.3 F 81 20 96 01/21/24 00:15 93/71 L 01/21/24 00:12 99.3 F 81 20 97 01/21/24 00:11 89/71 L 01/21/24 00:11 89/71 L 01/21/24 00:11 89/71 L 01/21/24 00:05 91/72 L 01/21/24 00:00 01/21/24 00:00 94 01/21/24 00:00 79 108/65 01/20/24 23:57 99.3 F 80 20 98 01/20/24 23:55 90/72 L 01/20/24 23:55 90/72 L 01/20/24 23:55 Mechanical Vent 01/20/24 23:53 79 01/20/24 23:48 99.5 F 79 20 99 01/20/24 23:45 91/71 L 01/20/24 23:45 91/71 L 01/20/24 23:30 99.7 F H 78 20 98 01/20/24 23:25 92/72 L 01/20/24 23:25 92/72 L 01/20/24 23:24 99.7 F H 79 20 97 01/20/24 23:20 90/73 L 01/20/24 23:20 90/73 L 01/20/24 23:20 90/73 L 01/20/24 23:18 99.9 F H 80 20 97 01/20/24 23:15 92/71 L 01/20/24 23:15 92/71 L 01/20/24 23:15 99.9 F H 82 20 97 01/20/24 23:10 93/72 L 01/20/24 23:10 93/72 L 01/20/24 23:03 99.9 F H 82 20 96 01/20/24 23:00 94/76 L 01/20/24 23:00 94/76 L 01/20/24 23:00 94/76 L 01/20/24 22:51 100.0 F H 01/20/24 22:50 97/72 L 01/20/24 22:50 97/72 L 01/20/24 22:45 83 21 98 01/20/24 22:30 90/68 L 01/20/24 22:25 84/69 L 01/20/24 22:21 100.2 F H 81 20 99 01/20/24 22:20 86/67 L 01/20/24 22:15 100.4 F H 79 20 98 01/20/24 22:10 81/68 L 01/20/24 22:10 81/68 L 01/20/24 22:10 81/68 L 01/20/24 22:06 100.4 F H 83 20 98 01/20/24 22:05 85/67 L 01/20/24 22:05 85/67 L 01/20/24 22:05 85/67 L 01/20/24 21:55 85/69 L 01/20/24 21:45 100.4 F H 85 20 98 01/20/24 21:45 88/70 L 01/20/24 21:45 88/70 L 01/20/24 21:40 88/69 L 01/20/24 21:15 88/71 L 01/20/24 21:12 100.4 F H 83 21 95 01/20/24 21:10 88/68 L 01/20/24 21:09 100.4 F H 83 21 95 01/20/24 21:05 85/66 L 01/20/24 21:05 85/66 L 01/20/24 21:03 100.4 F H 82 21 95 01/20/24 21:00 87/66 L 01/20/24 20:57 100.4 F H 80 20 96 01/20/24 20:55 82/64 L 01/20/24 20:55 82/64 L 01/20/24 20:51 100.4 F H 80 20 96 01/20/24 20:50 80/62 L 01/20/24 20:50 80/62 L 01/20/24 20:40 73/61 L 01/20/24 20:36 100.2 F H 78 20 94 01/20/24 20:35 76/58 L 01/20/24 20:35 76/58 L 01/20/24 20:35 76/58 L 01/20/24 20:30 75/63 L 01/20/24 20:25 79/66 L 01/20/24 20:24 100.2 F H 80 20 96 01/20/24 20:20 82/68 L 01/20/24 20:15 87/68 L 01/20/24 20:13 84 21 99 01/20/24 20:10 91/70 L 01/20/24 20:10 91/70 L 01/20/24 20:10 91/70 L 01/20/24 20:05 85/69 L 01/20/24 19:57 100.2 F H 84 20 98 01/20/24 19:55 94/73 L 01/20/24 19:55 94/73 L 01/20/24 19:54 100.2 F H 84 20 98 01/20/24 19:50 91/73 L 01/20/24 19:45 91/75 L 01/20/24 19:45 100.2 F H 83 20 98 01/20/24 19:40 93/74 L 01/20/24 19:39 100.0 F H 85 20 98 01/20/24 19:35 93/77 L 01/20/24 19:35 93/77 L 01/20/24 19:35 93/77 L O2 Del Method FiO2 01/21/24 06:30 01/21/24 06:30 01/21/24 06:30 01/21/24 06:30 01/21/24 06:09 01/21/24 06:00 01/21/24 06:00 01/21/24 06:00 01/21/24 05:57 01/21/24 05:33 01/21/24 05:30 01/21/24 05:30 01/21/24 05:27 01/21/24 05:03 01/21/24 05:00 01/21/24 05:00 01/21/24 04:57 01/21/24 04:30 01/21/24 04:30 01/21/24 04:30 01/21/24 04:15 50 01/21/24 04:03 01/21/24 04:00 01/21/24 04:00 01/21/24 03:59 50 01/21/24 03:59 Mechanical Vent 01/21/24 03:59 01/21/24 03:30 01/21/24 03:24 01/21/24 03:00 01/21/24 03:00 01/21/24 02:30 01/21/24 02:30 01/21/24 02:30 01/21/24 02:21 01/21/24 02:00 01/21/24 02:00 01/21/24 02:00 01/21/24 01:57 01/21/24 01:45 01/21/24 01:30 01/21/24 01:27 01/21/24 01:25 01/21/24 01:25 01/21/24 01:15 01/21/24 01:15 01/21/24 01:10 01/21/24 01:10 01/21/24 01:10 01/21/24 01:05 01/21/24 01:03 01/21/24 01:00 01/21/24 01:00 01/21/24 01:00 01/21/24 00:45 01/21/24 00:40 01/21/24 00:39 01/21/24 00:35 01/21/24 00:35 01/21/24 00:30 01/21/24 00:30 01/21/24 00:30 01/21/24 00:25 01/21/24 00:20 01/21/24 00:18 01/21/24 00:15 01/21/24 00:12 01/21/24 00:11 01/21/24 00:11 01/21/24 00:11 01/21/24 00:05 01/21/24 00:00 50 01/21/24 00:00 Mechanical Vent 01/21/24 00:00 01/20/24 23:57 01/20/24 23:55 01/20/24 23:55 01/20/24 23:55 50 01/20/24 23:53 01/20/24 23:48 01/20/24 23:45 01/20/24 23:45 01/20/24 23:30 01/20/24 23:25 01/20/24 23:25 01/20/24 23:24 01/20/24 23:20 01/20/24 23:20 01/20/24 23:20 01/20/24 23:18 01/20/24 23:15 01/20/24 23:15 01/20/24 23:15 01/20/24 23:10 01/20/24 23:10 01/20/24 23:03 01/20/24 23:00 01/20/24 23:00 01/20/24 23:00 01/20/24 22:51 01/20/24 22:50 01/20/24 22:50 01/20/24 22:45 50 01/20/24 22:30 01/20/24 22:25 01/20/24 22:21 01/20/24 22:20 01/20/24 22:15 01/20/24 22:10 01/20/24 22:10 01/20/24 22:10 01/20/24 22:06 01/20/24 22:05 01/20/24 22:05 01/20/24 22:05 01/20/24 21:55 01/20/24 21:45 01/20/24 21:45 01/20/24 21:45 01/20/24 21:40 01/20/24 21:15 01/20/24 21:12 01/20/24 21:10 01/20/24 21:09 01/20/24 21:05 01/20/24 21:05 01/20/24 21:03 01/20/24 21:00 01/20/24 20:57 01/20/24 20:55 01/20/24 20:55 01/20/24 20:51 01/20/24 20:50 01/20/24 20:50 01/20/24 20:40 01/20/24 20:36 01/20/24 20:35 01/20/24 20:35 01/20/24 20:35 01/20/24 20:30 01/20/24 20:25 01/20/24 20:24 01/20/24 20:20 01/20/24 20:15 01/20/24 20:13 50 01/20/24 20:10 01/20/24 20:10 01/20/24 20:10 01/20/24 20:05 01/20/24 19:57 01/20/24 19:55 01/20/24 19:55 01/20/24 19:54 01/20/24 19:50 01/20/24 19:45 01/20/24 19:45 01/20/24 19:40 01/20/24 19:39 01/20/24 19:35 01/20/24 19:35 01/20/24 19:35 Laboratory Results Reviewed CBC reviewed chemistry PG Care Time/CCT Total # of Minutes Spent Total Time Spent with Patient: Total time spent is greater than 50% in coordination of care (as documented) at patient's floor/unit and/or counseling patient: Coding Level of Care Code 65804 SUB INP/OBS CARE 2/35MIN Diagnoses Non-ischemic cardiomyopathy I42.8 Respiratory failure J96.90 History of alcohol abuse F10.11
[2024-01-21 08:04] LABS: iSTAT Art Bld Gas pCO2 Correct 38 mmHg (35-46); iSTAT Art Bld Gas pH Corrected 7.392 (7.35-7.45); iSTAT Arterial Blood Gas HCO3 23 meg/L (19-24); iSTAT Arterial Blood Gas pCO2 36 mmHg (35-46); iSTAT Arterial Blood Gas pH 7.41 (7.35-7.45); iSTAT Arterial Blood Gas pO2 77 mmHg (80-95); iSTAT Arterial Blood Gas pO2 C 82; iSTAT Carbon Dioxide 24 mmol/L (24-31); iSTAT FiO2 50 %; iSTAT Hematocrit 43 % (42-52); iSTAT Hemoglobin 14.6 g/dl (14.0-18.0); iSTAT Potassium 4.2 mmol/L (3.3-5.0); iSTAT Site Art Line; iSTAT Sodium 132 mmol/L (135-144)
[2024-01-21] MEDS: NICOTINE 21 MG/24 HR TDSY TD SCH (08:19)
--- NOTE | 2024-01-21 08:22 | XRay Report ---
XR chest 1V portable CLINICAL HISTORY: eval- ETT/OGT and lung rodriguez TECHNIQUE: Single frontal radiograph of the chest was obtained. Comparison: Comparison is made to chest radiograph 01/20/2024 FINDINGS: Endotracheal tube terminates 5.1 cm in the marga. Enteric tube is stable. The cardiomediastinal silh ouette is normal. Multifocal airspace opacities are seen. No evidence of pleural effusion or pneumoth orax. IMPRESSION: 1. Satisfactory position of lines and tubes. 2. Redemonstration of multifocal airspace opacities which may represent atelectasis, pneumonia, and/ or aspiration. ACT 112: Negative or not required by law. Electronically signed by: Abdias Hennessy M.D. 01/21/2024 8:20 AM
[2024-01-21] MEDS: FUROSEMIDE INJ 20 MG/2 ML VIAL IV ONE ×2 (09:28→23:50)
[2024-01-21] MEDS: ACETAMINOPHEN 1,000 MG/100 ML VIAL IV PRN (09:28)
--- NOTE | 2024-01-21 11:38 | Pharmacy Report ---
Pharmacy Glycemic Short Note 2 - Date of Service January 21, 2024 - Glycemic Short BSG Results (Last 24 hours): 01/20/24 01/20/24 01/20/24 10:34 12:57 19:27 Glucose 205 H POC Glucose POC Glucose (other) 156 H 195 H 01/21/24 01/21/24 01/21/24 00:06 02:50 05:33 Glucose 163 H POC Glucose 156 H 121 H POC Glucose (other) 01/21/24 11:17 Glucose POC Glucose 91 POC Glucose (other) OUTPATIENT ANTIDIABETIC REGIMEN: * N/A HbA1C:5.5 01/21/24 ASSESSMENT: 01/20: * BSGs over past 24 hours were [phone]-and 91 mg/dL. Patient received 5 units of novolog yesterday. * Pressor requirements decreasing but patient remains sedated and continues with ventilatory support. * Enteral nutrition began today with slow titration from trickle starting rate. * Continue current novolog scale below. 01/19 * Pt is a 58 YOM admitted to ICU s/p cardiac arrest. Now intubated and requiring vasopressor support. No history of DM (not on any meds for DM @ home)- pharmacy consulted to assist with inpatient glycemic management. * BSGs 172-195mg/dL. NPO, receiving IV antibiotics (as well as amiodarone in D5W) and vasopressors. * Given no history of DM and stress induced hyperglycemia, will begin with a Novolog moderate-severe stress scale q6. If BSGs continue to rise throughout the day, can tighten Novolog/increase to q4. May potentially require an IV insulin infusion if BSGs remain uncontrolled with SQ/pressor support. No SQ basal given acuity for now. PLAN FOR INPATIENT GLYCEMIC CONTROL: * Hold outpatient oral diabetes medications * Basal insulin * hold * Bolus insulin * NovoLog per scale ACHS or Q6hrs while NPO * Goal Range: Low 110 mg/dL - High 140 mg/dL * Correction Factor: 35 mg/dL/unit * Nutritional / Prandial insulin per carb ratio of 1 unit per 13 grams CHO consumed
[2024-01-21] MEDS: PEPTAMEN 1.5 CAL 1,000 ML BAG OG SCH (12:17)
[2024-01-21] MEDS: TUBE FEEDING WATER FLUSH OG SCH (12:17)
--- NOTE | 2024-01-21 13:54 | Electrocardiogram Report ---
Test Reason : Blood Pressure : */* mmHG Vent. Rate : 87 BPM Atrial Rate : 87 BPM P-R Int : 142 ms QRS Dur : 78 ms QT Int : 402 ms P-R-T Axes : 90 4 71 degrees QTcB Int : 483 ms Sinus rhythm with Premature supraventricular complexes Possible Left atrial enlargement Low voltage QRS Cannot rule out Anteroseptal infarct , age undetermined T wave abnormality, consider anterolateral ischemia Abnormal ECG When compared with ECG of 20-Jan-2024 05:26, Significant changes have occurred Confirmed by Pranay Lyons ([id number]) on 01/21/2024 1:53:57 PM Referred By: REFERRED SELF Confirmed By: Pranay Lyons
[2024-01-21] MEDS ORDERED: METOPROLOL TARTRATE 1 MG/ML VIAL IV PRN (14:39)
[2024-01-21] MEDS: METOPROLOL TARTRATE 1 MG/ML VIAL IV ONE (14:41)
[2024-01-21] MEDS: AMPICILLIN/SULBACTAM SOD 3,000 MG/100 ML BAG IV SCH (15:00)
[2024-01-21] MEDS ORDERED: DIGOXIN IV STA (15:00)
[2024-01-21] MEDS: DIGOXIN IV STA (15:19)
[2024-01-21] MEDS: fentaNYL BOLUS from BAG IV PRN (15:55)
--- NOTE | 2024-01-21 17:17 | Cardiology Progress Note ---
Date of Service January 21, 2024 Assessment & Plan (1) Cardiogenic shock: Plan: 2. Acute decompensated heart failure/HFrEFEF 20%very low suspicion for ischemic etiology. No need for repeat cardiac cath 3. PEA arrest 4. A-fib with RVR 5. Hypoxic respiratory failure 6. Elevated LFTs 7. Thrombocytopenia Improved hemodynamics, now off vasopressors Good urine output and stable renal function Decreased PEEP/O2 requirements. Still with some congestion on chest x-ray Recurrent AF with RVR this afternoon. Hemodynamically stable For A-fib agree with rate control with digoxin. Okay with heart rates <130s. with cardiogenic shock ideally would avoid additional negative inotropes. Okay to restart amiodarone if unable to rate control. Ideally would like to avoid chemical/electrical cardioversion while off anticoagulation Continue IV diuresis Resume IV heparin when safe from a bleeding standpoint Will continue to follow. Appreciate ICU and hospital medicine care. Admission and Anticipated Discharge Date Admission Date: January 20, 2024 Subjective Patient remains intubated but is awake, able to follow commands. Vasopressor/inotropes have been weaned off. On antibiotics after spiked fever this morning. Had recurrence of atrial fibrillation with RVR this afternoon. Blood pressure unchanged. Review of Systems Review of Systems: All systems reviewed & are unremarkable except as noted in HPI & below Physical Exam Physical Exam: General: Intubated, awake, follows commands HEENT: Sclerae anicteric Lungs: Clear to anteriorly Cardiac: Regular, no murmurs Vascular: Femoral A-line in place Abdomen: Soft Extremities: Cool, no edema Results & Data Vital Signs (Past 12 Hours) Vital Signs Temp Pulse Resp BP Pulse Ox O2 Del Method O2 Del Method 01/21/24 16:30 99.1 F 122 H 15 96 01/21/24 16:03 99.0 F 102 H 16 97 01/21/24 16:00 01/21/24 16:00 121 H 01/21/24 16:00 Mechanical Vent 01/21/24 15:51 98.8 F 136 H 18 95 01/21/24 15:19 143 H 01/21/24 15:09 135 H 12 96 01/21/24 15:00 98.8 F 128 H 10 L 96 01/21/24 14:55 135 H 103/66 01/21/24 14:41 133 H 107/72 01/21/24 14:33 99.0 F 141 H 16 97 01/21/24 14:15 99.0 F 94 H 17 98 01/21/24 13:39 99.0 F 81 11 L 97 01/21/24 13:03 99.5 F 82 11 L 98 01/21/24 12:30 99.7 F H 80 10 L 96 01/21/24 12:00 99.9 F H 84 14 96 01/21/24 12:00 01/21/24 12:00 Mechanical Vent 01/21/24 11:30 100.2 F H 104 H 16 96 01/21/24 11:03 100.6 F H 90 18 96 01/21/24 11:00 Mechanical Vent 01/21/24 10:30 100.8 F H 87 13 99 01/21/24 10:00 100.8 F H 97 H 13 99 01/21/24 10:00 98 H 14 98 01/21/24 09:30 Mechanical Vent 01/21/24 09:30 100.8 F H 102 H 14 95 01/21/24 09:03 100.8 F H 98 H 17 95 01/21/24 08:30 100.6 F H 93 H 14 95 01/21/24 08:20 100.2 F H 93 H 13 94 01/21/24 08:00 91 H 01/21/24 08:00 01/21/24 08:00 100.2 F H 90 25 H 95 01/21/24 08:00 Mechanical Vent 01/21/24 07:30 100.2 F H 93 H 20 95 01/21/24 07:30 16 01/21/24 07:15 86 21 97 01/21/24 07:00 100.6 F H 88 23 98 01/21/24 07:00 95/68 L 01/21/24 06:30 100.6 F H 85 20 100 01/21/24 06:30 92/70 L 01/21/24 06:30 92/70 L 01/21/24 06:30 92/70 L 01/21/24 06:09 100.6 F H 80 20 99 01/21/24 06:00 84/67 L 01/21/24 06:00 84/67 L 01/21/24 06:00 84/67 L 01/21/24 05:57 100.4 F H 85 20 99 01/21/24 05:33 100.4 F H 82 20 99 01/21/24 05:30 81/60 L 01/21/24 05:30 81/60 L 01/21/24 05:27 100.2 F H 82 20 100 FiO2 01/21/24 16:30 01/21/24 16:03 01/21/24 16:00 50 01/21/24 16:00 01/21/24 16:00 01/21/24 15:51 01/21/24 15:19 01/21/24 15:09 50 01/21/24 15:00 01/21/24 14:55 01/21/24 14:41 01/21/24 14:33 01/21/24 14:15 01/21/24 13:39 01/21/24 13:03 01/21/24 12:30 01/21/24 12:00 01/21/24 12:00 50 01/21/24 12:00 01/21/24 11:30 01/21/24 11:03 01/21/24 11:00 01/21/24 10:30 01/21/24 10:00 01/21/24 10:00 50 01/21/24 09:30 50 01/21/24 09:30 01/21/24 09:03 01/21/24 08:30 01/21/24 08:20 01/21/24 08:00 01/21/24 08:00 50 01/21/24 08:00 01/21/24 08:00 01/21/24 07:30 01/21/24 07:30 50 01/21/24 07:15 50 01/21/24 07:00 01/21/24 07:00 01/21/24 06:30 01/21/24 06:30 01/21/24 06:30 01/21/24 06:30 01/21/24 06:09 01/21/24 06:00 01/21/24 06:00 01/21/24 06:00 01/21/24 05:57 01/21/24 05:33 01/21/24 05:30 01/21/24 05:30 01/21/24 05:27 PG Care Time/CCT Total # of Minutes Spent Total Time Spent with Patient: Total time spent is greater than 50% in coordination of care (as documented) at patient's floor/unit and/or counseling patient: Coding Level of Care Code 17605 SUB INP/OBS CARE 350MIN Diagnoses Cardiogenic shock R57.0
[2024-01-21] MEDS: DIGOXIN IV ONE (19:34)
[2024-01-21] MEDS: PROPOFOL BOLUS FROM BAG IV PRN (20:18)
[2024-01-21] MEDS: POTASSIUM CHLORIDE / WTR 10 MEQ/100 ML PLCT IV ONE (23:50)
[2024-01-22 04:30] LABS: Basophils # (auto) 0.05 K/uL (0.00-0.20); Basophils % (auto) 0.6 %; Eosinophils # (auto) 0.08 K/uL (0.00-0.50); Eosinophils % (auto) 0.9 %; Hematocrit (blood only) 39.4 % (42.0-52.0); Hemoglobin 13.8 g/dl (14.0-18.0); Immature Granulocytes # (auto) 0.05 K/uL (0.01-0.20); Immature Granulocytes % (auto) 0.6 %; Lymphocytes # (auto) 0.83 K/uL (1.20-3.40); Lymphocytes % (auto) 9.7 %; Mean Corpuscular Hemoglobin 34.9 pg (25.0-34.0); Mean Corpuscular Volume 99.7 fL (80.0-100.0); Mean Platelet Volume 10.7 fL (9.4-12.4); Monocytes # (auto) 0.51 K/uL (0.11-0.59); Monocytes % (auto) 5.9 %; Neutrophils # (auto) 7.06 K/uL (1.40-6.50); Neutrophils % (auto) 82.3 %; Platelet Count 69 K/uL (130-400); RDW Coefficient of Variation 13.5 % (11.5-14.5); RDW Standard Deviation 49.8 fL (36.4-46.3); Red Blood Count 3.95 M/uL (4.70-6.10); White Blood Count 8.58 K/ul (4.8-10.8)
[2024-01-22 04:43] LABS: Albumin Globulin Ratio 1.9 (0.9-2); Albumin Level 3.3 gm/dl (3.4-5.0); BUN Creatinine Ratio 14.3 (10-20); Bilirubin Direct 2.3 mg/dl (0-0.2); Bilirubin,Total 3.9 mg/dl (0.2-1.0); Calcium 8.1 mg/dl (8.6-10.3); Creatinine Clr Calc Pharmacy 112.1 ml/min; Est GFR (African American) 125.9 ml/min; Est GFR (Non-African American) 108.6 ml/min; Globulin 1.7 gm/dl (2.5-4.0); Magnesium 1.5 mg/dl (1.7-2.4); Phosphorus 3.4 mg/dl (2.5-4.9); Potassium 3.5 mmol/L (3.5-5.1)
[2024-01-22 04:56] LABS: INR 1.3 (0.9-1.1); Partial Thromboplastin Ratio 1.1; Partial Thromboplastin Time 30 Seconds (21-31); Prothrombin Time 13.8 Seconds (9.0-12.0)
[2024-01-22] MEDS: POTASSIUM CHLORIDE / WTR 20 MEQ/100 ML PLCT IV SCH (05:10)
[2024-01-22] MEDS: MAGNESIUM SULFATE / D5W 1 GM/100 ML BAG IV SCH (05:16)
[2024-01-22] MEDS ORDERED: POTASSIUM CHLORIDE / WTR 20 MEQ/100 ML PLCT IV SCH (05:45)
[2024-01-22] MEDS ORDERED: DOBUTamine 1000 MG/250ML D5W IV STA (07:16)
[2024-01-22] MEDS: DOBUTamine / D5W 1,000 MG/250 ML BAG (Premixed) IV SCH (07:26)
--- NOTE | 2024-01-22 07:28 | Critical Care Progress Note ---
Date of Service January 22, 2024 Assessment & Plan (1) Elevated troponin: (2) Atrial flutter with rapid ventricular response: (3) Acute on chronic HFrEF (heart failure with reduced ejection fraction): (4) Current smoker: (5) Non-ischemic cardiomyopathy: (6) Cardiogenic shock: (7) High anion gap metabolic acidosis: (8) NAHUN (acute kidney injury): (9) Transaminitis: (10) Bilirubinemia: (11) Aspiration pneumonia: (12) Pulmonary edema: (13) COPD with emphysema: Plan Reason Critically Ill: 58-year-old male presented to hospital with complaints of shortness of breath. Sent to ICU for cardiac arrest, intubated Past medical history: Systolic CHF, A-fib on Xarelto, nonischemic cardiomyopathy, hypertension Neuro - [facility]: Unable to assess Propofol and fentanyl for sedation --New onset seizure Etiology is not clear Got a loading dose of Keppra on 01/20/2024 TSH within normal limit CT of the head 01/20/2024 negative for any intracranial findings. EEG 01/22/2024: Mild abnormal study diffuse slowing, no epileptic activity noted Cardiac - -- Cardiac arrest with cardiogenic shock Etiology is likely cardiac/systolic CHF Will continue with inotropic support --A-fib with RVR Currently rate controlled Did get amiodarone bolus in the ED --> restarted 01/22/2024 Got bolus of 300 mcg bolus 01/21/2024 followed by 150 mcg x 2 on 01/22/2024 --Elevated troponins Likely type II CT Trending down --Systolic CHF Decrease in EF from 40% to 25% 2D echo 01/20/2024: EF 20-25%, normal RV, mildly reduced RV function, PASP 40-45 mmHg, mild MR Respiratory - CT chest 01/20/2024 personally reviewed: Centrilobular emphysema appreciated bilaterally Interlobular thickening appreciated bilaterally Consolidative process appreciated bilateral lower lobes Small bilateral pleural effusion No significant mediastinal lymphadenopathy -- VDRF For airway protection secondary to cardiac arrest Continue with ventilatory support Keep RASS -1 Daily sedation holidays and SBT's Chlorhexidine mouthwash --Hemoptysis --> resolved Seems to be coming from pulmonary edema --Hypoxic respiratory failure Likely secondary to pulmonary edema with possible aspiration Diuresis as tolerated Continue with antibiotic -- COPD with emphysema Nebulized treatment while in the hospital GI - -- Transaminitis with hyperbilirubinemia --> improving Likely from hypotension Continue to trend RENAL/LYTES - --S/p NAHUN Monitor BUN/creatinine Avoid nephrotoxic medications Strict ins and outs --Hyponatremia Serum osmolality 274 TSH within normal limit -- S/p HAGMA Delta-delta: Pure anion Likely sec to lactic acidosis Monitor - -- Continue with Burk catheter ENDO - -- ICU hyperglycemia protocol HEME - -- Thrombocytopenia Continue to monitor ID - -- Aspiration pneumonia Continue with antibiotics Sputum culture growing light normal shaista --Prophylaxis VTE: Xarelto at home, heparin drip GI: Pantoprazole Lines: Right femoral TLC and arterial, peripheral Diet: Trophic tube feeds Plan: In/out: -919, urine output 1994 AB.38/45/96 on PEEP 8, 50% Will give another dose of 20 mg of Lasix today. Magnesium and potassium being replaced Patient's platelets are even trending down but he is going into A-fib with RVR, he has failed digoxin Will give bolus of amiodarone and start him on amiodarone drip. Given that this will chemically convert the patient to sinus rhythm I will resume the heparin drip with no bolus I will repeat CBC later today to make sure the platelets are not significantly trending down. If they go less than 50 then I will have to hold the heparin drip Continue with dobutamine with addition of Levophed to maintain MAP greater than 65. Would recommend to keep dobutamine no more than 5 as it will get more arrhythmogenic. I have personally spent 48 minutes of critical care time in the direct management of this patient. This is a life/limb threatening event. This includes time spent evaluating patient, direct bedside care, chart review, placing orders, interpretation of diagnostic studies, discussion with consultants, patient, and family members, as well as other required patient management activities. This time is exclusive of all separately billable procedures, and teaching time and separate from and in addition to any other critical care service time. Admission and Anticipated Discharge Date Admission Date: January 20, 2024 Subjective Patient seen and examined at bedside. No acute distress. Overnight patient's heart rate was still in the 120s to 130s. Later in the morning patient's heart rate went into 180s and persistently stayed there. He was on 25 propofol and 75 fentanyl at the time of examination He was not on any vasopressors at the time of examination Breathing over the vent Review of Systems 2 Review of Systems: Unobtainable due to endotracheal tube Physical Exam 2 Physical Exam: Constitutional: No acute distress HEENT: PERRLA, sluggish pupillary response Respiratory system: Decreased air entry bilaterally, no rhonchi, no wheeze, mild crackles bilateral lower lobes CVS: S1-S2 positive, no murmurs or gallops, tachycardia Abdomen: Soft, nontender, nondistended, positive bowel sounds x4 Extremities: +1 pulses bilaterally radialis/ dorsalis pedis, no cyanosis, no edema, cold extremities Neuro: RASS -1, breathing over the vent, following commands Psych: Unable to assess G/U: Positive Burk Skin: no rashes, warm and dry Lymphatic: no cervical or axillary lymphadenopathy Results & Data Results & Data Vital Signs (Past 12 Hours) Vital Signs Temp Pulse Resp BP Pulse Ox Pulse Ox O2 Del Method 01/22/24 06:30 37.6 C H 137 H 17 97 Mechanical Vent 01/22/24 06:00 37.6 C H 116 H 17 97 Mechanical Vent 01/22/24 05:39 37.6 C H 112 H 16 98 01/22/24 05:00 37.7 C H 107 H 16 97 Mechanical Vent 01/22/24 04:30 37.8 C H 131 H 16 96 01/22/24 04:00 37.8 C H 110 H 16 96 Mechanical Vent 01/22/24 04:00 118 H 98/54 L 01/22/24 04:00 01/22/24 04:00 96 01/22/24 03:17 19 01/22/24 03:00 37.9 C H 120 H 16 97 Mechanical Vent 01/22/24 02:36 37.8 C H 106 H 16 98 Mechanical Vent 01/22/24 02:00 37.6 C H 123 H 15 97 Mechanical Vent 01/22/24 01:30 37.5 C 106 H 17 97 01/22/24 01:00 37.6 C H 107 H 16 97 Mechanical Vent 01/22/24 00:30 37.6 C H 113 H 15 96 01/22/24 00:00 37.5 C 114 H 14 95 Mechanical Vent 01/22/24 00:00 01/22/24 00:00 96 01/22/24 00:00 112 H 102/52 L 01/22/24 00:00 122 H 01/21/24 23:00 37.4 C 112 H 16 94 Mechanical Vent 01/21/24 22:50 93 H 20 96 01/21/24 22:30 37.3 C 113 H 17 95 01/21/24 22:06 37.4 C 97 H 17 95 Mechanical Vent 01/21/24 21:00 37.4 C 93 H 16 96 01/21/24 20:36 37.5 C 109 H 17 96 Mechanical Vent 01/21/24 20:03 127 H 16 97 01/21/24 20:00 37.5 C 117 H 16 97 01/21/24 20:00 Mechanical Vent 01/21/24 20:00 01/21/24 20:00 97 01/21/24 20:00 111 H 102/65 01/21/24 19:48 37.6 C H 99 H 15 96 Mechanical Vent 01/21/24 19:34 118 H O2 Del Method FiO2 01/22/24 06:30 50 01/22/24 06:00 50 01/22/24 05:39 01/22/24 05:00 50 01/22/24 04:30 01/22/24 04:00 01/22/24 04:00 01/22/24 04:00 50 01/22/24 04:00 Mechanical Vent 01/22/24 03:17 01/22/24 03:00 01/22/24 02:36 50 01/22/24 02:00 01/22/24 01:30 01/22/24 01:00 01/22/24 00:30 01/22/24 00:00 01/22/24 00:00 50 01/22/24 00:00 Mechanical Vent 01/22/24 00:00 01/22/24 00:00 01/21/24 23:00 01/21/24 22:50 50 01/21/24 22:30 01/21/24 22:06 50 01/21/24 21:00 01/21/24 20:36 50 01/21/24 20:03 50 01/21/24 20:00 01/21/24 20:00 50 01/21/24 20:00 50 01/21/24 20:00 Mechanical Vent 01/21/24 20:00 01/21/24 19:48 50 01/21/24 19:34 Laboratory Results 01/22/24 04:07 01/22/24 04:07 Coding Level of Care Code 33783 CRITICAL CARE 1ST 30-74M Diagnoses Elevated troponin R77.8 Atrial flutter with rapid ventricular response I48.92 Acute on chronic HFrEF (heart failure with reduced ejection fraction) I50.23 Current smoker F17.200 Non-ischemic cardiomyopathy I42.8 Cardiogenic shock R57.0 High anion gap metabolic acidosis E87.29 NAHUN (acute kidney injury) N17.9 Transaminitis R74.01 Bilirubinemia E80.6 Aspiration pneumonia J69.0 Pulmonary edema J81.1 COPD with emphysema J43.9
[2024-01-22] MEDS ORDERED: DIGOXIN IV STA (07:32)
[2024-01-22] MEDS: FUROSEMIDE INJ 20 MG/2 ML VIAL IV ONE (07:38)
[2024-01-22] MEDS: DIGOXIN IV STA (07:53)
[2024-01-22 08:11] LABS: iSTAT Art Bld Gas pCO2 Correct 46 mmHg (35-46); iSTAT Art Bld Gas pH Corrected 7.373 (7.35-7.45); iSTAT Arterial Blood Gas HCO3 27 meg/L (19-24); iSTAT Arterial Blood Gas pCO2 45 mmHg (35-46); iSTAT Arterial Blood Gas pH 7.38 (7.35-7.45); iSTAT Arterial Blood Gas pO2 96 mmHg (80-95); iSTAT Arterial Blood Gas pO2 C 98; iSTAT Carbon Dioxide 28 mmol/L (24-31); iSTAT FiO2 50 %; iSTAT Hematocrit 39 % (42-52); iSTAT Hemoglobin 13.3 g/dl (14.0-18.0); iSTAT Site Art Line; iSTAT Sodium 131 mmol/L (135-144)
[2024-01-22] MEDS ORDERED: 0.2 MICRON FILTER SET 1 EACH IV STA (08:43)
[2024-01-22] MEDS ORDERED: STAT IV Infusion **Titration per Protocol STA ×2 (08:43→08:57)
[2024-01-22] MEDS ORDERED: AMIODARONE IV BOLUS & DRIP IV STA (08:43)
[2024-01-22] MEDS: AMIODARONE / D5W 360 MG/200 ML BAG IV ONE (08:55)
[2024-01-22] MEDS: AMIODARONE / D5W 150 MG/100 ML BAG IV STA (08:55)
[2024-01-22] MEDS: NOREPINEPHRINE/D5W 4 MG/250 ML PLCT IV SCH (09:10)
[2024-01-22] MEDS: NOREPINEPHRINE/D5W 4 MG/250 ML IV ONE (09:11)
[2024-01-22] MEDS: AMIODARONE 360MG / 200ML D5W IV ONE (09:12)
[2024-01-22] MEDS: AMIODARONE 150MG / 100ML D5W IV ONE (09:12)
[2024-01-22] MEDS ORDERED: Nursing to Pharmacy Communication SCH (09:15)
[2024-01-22] MEDS: Heparin IV Adult Wt-Based Standard *NO* INITIAL Bolus Protocol IV STA (09:16)
[2024-01-22 09:26] LABS: ANTI-Xa, UFH(UnfractionatedHep < 0.10 IU/ml (0.3-0.7)
--- NOTE | 2024-01-22 09:39 | Electroencephalogram ---
EEG Procedure Note Date of Service January 22, 2024 Start / End Times Start Time: 744 End Time: 804 Referring Physician nima pearl History cardiac arrest, seizure Home Medication List Medication Instructions Recorded Confirmed Type rivaroxaban 20 mg tablet (Xarelto) 20 mg PO DAILY 90 days #90 tabs 01/19/23 08/10/23 Rx furosemide 20 mg tablet (Lasix) 20 mg PO BID #180 tabs 01/22/23 08/10/23 Rx carvedilol 25 mg tablet 25 mg PO BID #180 tabs 02/02/23 08/10/23 Rx sacubitril 24 mg-valsartan 26 mg 1 tab PO BID #60 tabs 07/02/23 08/10/23 Rx tablet (Entresto) azelastine 137 mcg (0.1 %) nasal 1 spray intranasal BID PRN 08/10/23 08/10/23 History spray Inpatient Medication List Enteral Nutritional Formula (Peptamen 1.5 Dick 1,000 Ml Bag) 1,000 ml OG UD [facility]; Protocol Stop: 02/20/24 10:29 Last Admin: 01/21/24 12:17 Dose: 1,000 ml Documented By: JAMA Fentanyl Citrate (Fentanyl Bolus From Bag) 50 mcg IV Q60M PRN PRN Reason: Pain or Agitation Stop: 02/03/24 11:48 Last Admin: 01/22/24 08:11 Dose: 50 mcg Documented By: JAMA Co-signed By: ARCELIA Admin: 01/22/24 07:49 Dose: 50 mcg Documented By: JAMA Co-signed By: ARCELIA Admin: 01/22/24 05:50 Dose: 50 mcg Documented By: MAK Co-signed By: WILD Admin: 01/21/24 21:10 Dose: 50 mcg Documented By: MAK Co-signed By: WILD Admin: 01/21/24 19:15 Dose: 50 mcg Documented By: MAK Co-signed By: WILD Admin: 01/21/24 15:55 Dose: 50 mcg Documented By: JAMA Co-signed By: ARCELIA Heparin Sodium/Dextrose (Heparin Sodium/Dextrose) 25,000 units in 500 mls @ 20 mls/hr IV .Q24H [facility]; Protocol Stop: 02/19/24 06:29 Last Titration: 01/20/24 12:01 Dose: Infused Documented By: ARSENIO Co-signed By: DOC Admin: 01/20/24 06:47 Dose: 1,000 units/hr, 20 mls/hr Documented By: Co-signed By: JAMISON Pantoprazole Sodium 40 mg/ (Syringe) 10 mls @ 5 mls/min IV DAILY@1100 [facility] Stop: 02/19/24 10:59 Last Admin: 01/21/24 10:47 Dose: 5 mls/min Documented By: Admin: 01/20/24 13:08 Dose: 5 mls/min Documented By: ARSENIO Propofol (Diprivan) 1,000 mg in 100 mls @ 12.936 mls/hr IV .Q7H44M [facility]; Protocol Stop: 01/23/24 11:59 Last Titration: 01/22/24 08:40 Dose: 35 mcg/kg/min, 12.9 mls/hr Documented By: Titration: 01/22/24 08:28 Dose: 30 mcg/kg/min, 11.1 mls/hr Documented By: Titration: 01/22/24 07:41 Dose: 25 mcg/kg/min, 9.2 mls/hr Documented By: Admin: 01/22/24 07:10 Dose: 20 mcg/kg/min, 7.4 mls/hr Documented By: JAMA Co-signed By: ARCELIA Titration: 01/22/24 07:10 Dose: Infused Documented By: JAMA Co-signed By: ARCELIA Titration: 01/22/24 07:05 Dose: 20 mcg/kg/min, 7.4 mls/hr Documented By: MAK Co-signed By: JAMA Admin: 01/21/24 19:07 Dose: Not Given Documented By: Admin: 01/21/24 19:06 Dose: Not Given Documented By: Titration: 01/21/24 19:01 Dose: 20 mcg/kg/min, 7.4 mls/hr Documented By: JAMA Co-signed By: MAK Titration: 01/21/24 18:25 Dose: Infused Documented By: JAMA Co-signed By: ARCELIA Admin: 01/21/24 18:25 Dose: 20 mcg/kg/min, 7.4 mls/hr Documented By: JAMA Co-signed By: ARCELIA Titration: 01/21/24 18:05 Dose: 20 mcg/kg/min, 7.4 mls/hr Documented By: Titration: 01/21/24 16:10 Dose: 15 mcg/kg/min, 5.5 mls/hr Documented By: Titration: 01/21/24 14:55 Dose: 15 mcg/kg/min, 5.5 mls/hr Documented By: Titration: 01/21/24 08:54 Dose: 10 mcg/kg/min, 3.7 mls/hr Documented By: Titration: 01/21/24 06:51 Dose: 25 mcg/kg/min, 9.2 mls/hr Documented By: JT Co-signed By: KMY Admin: 01/21/24 03:10 Dose: 25 mcg/kg/min, 9.2 mls/hr Documented By: JT Co-signed By: CP Titration: 01/21/24 03:10 Dose: Infused Documented By: JT Co-signed By: CP Titration: 01/20/24 19:13 Dose: 25 mcg/kg/min, 9.2 mls/hr Documented By: JT Co-signed By: WS Admin: 01/20/24 17:09 Dose: 25 mcg/kg/min, 9.2 mls/hr Documented By: WS Co-signed By: CB Titration: 01/20/24 17:09 Dose: Infused Documented By: WS Co-signed By: CB Titration: 01/20/24 15:00 Dose: 25 mcg/kg/min, 9.2 mls/hr Documented By: Titration: 01/20/24 12:45 Dose: 30 mcg/kg/min, 11.1 mls/hr Documented By: Titration: 01/20/24 12:30 Dose: 45 mcg/kg/min, 16.6 mls/hr Documented By: Admin: 01/20/24 12:07 Dose: 50 mcg/kg/min, 18.5 mls/hr Documented By: WS Co-signed By: DOC Fentanyl Citrate (Fentanyl Citrate) 2,500 mcg in 250 mls @ 7.5 mls/hr IV .[id number] [facility]; Protocol Stop: 02/03/24 11:59 Last Titration: 01/22/24 07:49 Dose: 75 mcg/hr, 7.5 mls/hr Documented By: JAMA Co-signed By: ARCELIA Titration: 01/22/24 07:06 Dose: 50 mcg/hr, 5 mls/hr Documented By: MAK Co-signed By: JAMA Titration: 01/21/24 19:01 Dose: 50 mcg/hr, 5 mls/hr Documented By: JAMA Co-signed By: MAK Titration: 01/21/24 15:56 Dose: 50 mcg/hr, 5 mls/hr Documented By: JAMA Co-signed By: ARCELIA Titration: 01/21/24 06:51 Dose: 25 mcg/hr, 2.5 mls/hr Documented By: KASEY Co-signed By: JAMA Titration: 01/20/24 19:13 Dose: 25 mcg/hr, 2.5 mls/hr Documented By: KASEY Co-signed By: ARSENIO Titration: 01/20/24 14:00 Dose: 25 mcg/hr, 2.5 mls/hr Documented By: WS Co-signed By: AMB Titration: 01/20/24 13:00 Dose: 50 mcg/hr, 5 mls/hr Documented By: WS Co-signed By: AMB Admin: 01/20/24 12:06 Dose: 75 mcg/hr, 7.5 mls/hr Documented By: ARSENIO Co-signed By: AMB Acetaminophen (Ofirmev) 1,000 mg in 100 mls @ 400 mls/hr IV Q8H PRN PRN Reason: Fever or headache Stop: 01/24/24 09:18 Last Infusion: 01/21/24 09:53 Dose: Infused Documented By: Admin: 01/21/24 09:28 Dose: 400 mls/hr Documented By: JAMA Ampicillin Sodium/Sulbactam Sodium (Unasyn) 3,000 mg in 100 mls @ 200 mls/hr IV Q6H [facility]; Protocol Stop: 01/26/24 10:29 Last Admin: 01/22/24 09:18 Dose: 200 mls/hr Documented By: Infusion: 01/22/24 05:00 Dose: Infused Documented By: Admin: 01/22/24 04:25 Dose: 200 mls/hr Documented By: Infusion: 01/21/24 22:50 Dose: Infused Documented By: [facility] Admin: 01/21/24 22:15 Dose: 200 mls/hr Documented By: [facility] Infusion: 01/21/24 15:33 Dose: Infused Documented By: Admin: 01/21/24 15:00 Dose: 200 mls/hr Documented By: JAMA Magnesium Sulfate/Dextrose (Magnesium Sulfate / D5w) 1 gm in 100 mls @ 50 mls/hr IV Q2H [facility] Stop: 01/22/24 12:59 Last Admin: 01/22/24 08:21 Dose: 50 mls/hr Documented By: Infusion: 01/22/24 08:21 Dose: Infused Documented By: Admin: 01/22/24 07:09 Dose: 50 mls/hr Documented By: Infusion: 01/22/24 07:09 Dose: Infused Documented By: Admin: 01/22/24 05:16 Dose: 50 mls/hr Documented By: [facility] Dobutamine HCl/Dextrose () 1,000 mg in 250 mls @ 2.355 mls/hr IV .Q24H [facility]; Protocol Stop: 02/21/24 07:29 Last Titration: 01/22/24 08:42 Dose: 12.5 mcg/kg/min, 11.8 mls/hr Documented By: Titration: 01/22/24 08:26 Dose: 10.5 mcg/kg/min, 9.9 mls/hr Documented By: Titration: 01/22/24 08:21 Dose: 8.5 mcg/kg/min, 8 mls/hr Documented By: Titration: 01/22/24 08:16 Dose: 6.5 mcg/kg/min, 6.1 mls/hr Documented By: Titration: 01/22/24 08:11 Dose: 4.5 mcg/kg/min, 4.2 mls/hr Documented By: Admin: 01/22/24 07:26 Dose: 2.5 mcg/kg/min, 2.4 mls/hr Documented By: ARCELIA Co-signed By: JAMA Amiodarone HCl/Dextrose (Nexterone / D5w) 360 mg in 200 mls @ 33.333 mls/hr IV ONE ONE Stop: 01/22/24 14:59 Last Admin: 01/22/24 08:55 Dose: 1 mg/min, 33.3 mls/hr Documented By: JAMA Co-signed By: ARCELIA Norepinephrine Bitartrate (Levophed/D5w) 4 mg in 250 mls @ 21.195 mls/hr IV .[id number] [facility]; Protocol Stop: 02/21/24 08:59 Last Admin: 01/22/24 09:10 Dose: 0.09 mcg/kg/min, 21.2 mls/hr Documented By: ARCELIA Co-signed By: JAMA Insulin Aspart (Insulin Aspart Per Unit Charge) 0 units SC Q6 [facility] Stop: 02/19/24 13:49 Last Admin: 01/22/24 06:13 Dose: Not Given Documented By: [facility] Admin: 01/22/24 00:13 Dose: Not Given Documented By: [facility] Admin: 01/21/24 18:10 Dose: Not Given Documented By: Admin: 01/21/24 12:15 Dose: Not Given Documented By: Admin: 01/21/24 05:37 Dose: Not Given Documented By: Admin: 01/21/24 00:16 Dose: 1 units Documented By: KASEY Co-signed By: RIYA Admin: 01/20/24 18:48 Dose: 2 units Documented By: ARSENIO Co-signed By: AIDEN Admin: 01/20/24 14:10 Dose: 2 units Documented By: ARSENIO Co-signed By: DOC Hurd (Remove Nicoderm Patch) 1 each N/A DAILY@0859 [facility] Stop: 02/19/24 08:58 Last Admin: 01/22/24 07:08 Dose: Not Given Documented By: Admin: 01/21/24 08:19 Dose: Not Given Documented By: Admin: 01/20/24 10:42 Dose: 1 each Documented By: ARSENIO Hurd (Icu Electrolyte Replacement Protocol) 1 each N/A BID@06,18 [facility]; Protocol Stop: 01/27/24 17:59 Last Admin: 01/22/24 05:09 Dose: 1 each Documented By: [facility] Admin: 01/21/24 19:02 Dose: Not Given Documented By: Admin: 01/21/24 04:45 Dose: 1 each Documented By: Admin: 01/20/24 21:07 Dose: 1 each Documented By: JT Nicotine (Nicotine 21 Mg/24 Hr Tdsy) 1 patch TD QAM [facility] Stop: 02/20/24 08:59 Last Admin: 01/22/24 07:08 Dose: Not Given Documented By: Admin: 01/21/24 08:19 Dose: Not Given Documented By: JAMA Propofol (Propofol Bolus From Bag) 20 mg IV Q5M PRN PRN Reason: Sedation Stop: 01/23/24 11:48 Last Admin: 01/22/24 08:41 Dose: 20 mg Documented By: JAMA Co-signed By: ARCELIA Admin: 01/21/24 20:18 Dose: 10 mg Documented By: [facility] Co-signed By: WILD Sterile Water (Tube Feeding Water Flush) 150 ml OG Q4H [facility] Stop: 02/20/24 10:44 Last Admin: 01/22/24 06:35 Dose: 150 ml Documented By: Admin: 01/22/24 02:53 Dose: 150 ml Documented By: Admin: 01/21/24 22:32 Dose: 150 ml Documented By: [facility] Admin: 01/21/24 18:34 Dose: 150 ml Documented By: Admin: 01/21/24 14:43 Dose: 150 ml Documented By: Admin: 01/21/24 12:17 Dose: 150 ml Documented By: JAMA Discontinued Medications Amiodarone HCl/Dextrose (Amiodarone 360mg / 200ml D5w) Confirm Administered Dose 360 mg IV .STK-MED ONE Stop: 01/20/24 08:27 Last Admin: 01/20/24 08:30 Dose: Not Given Documented By: SYDNIE Amiodarone HCl/Dextrose (Amiodarone 150mg / 100ml D5w) Confirm Administered Dose 150 mg IV .STK-MED ONE Stop: 01/20/24 08:27 Last Admin: 01/20/24 08:30 Dose: Not Given Documented By: SYDNIE Amiodarone HCl/Dextrose (Amiodarone 150mg / 100ml D5w) Confirm Administered Dose 150 mg IV .STK-MED ONE Stop: 01/22/24 08:45 Last Admin: 01/22/24 09:12 Dose: Not Given Documented By: ARCELIA Amiodarone HCl/Dextrose (Amiodarone 360mg / 200ml D5w) Confirm Administered Dose 360 mg IV .STK-MED ONE Stop: 01/22/24 08:45 Last Admin: 01/22/24 09:12 Dose: Not Given Documented By: ARCELIA Carvedilol (Carvedilol 6.25 Mg Tab) 6.25 mg PO BIDM [facility] Stop: 02/19/24 08:59 Last Admin: 01/20/24 10:41 Dose: Not Given Documented By: ARSENIO Epinephrine HCl (Epinephrine Inj 1 Mg/Ml Amp) Confirm Administered Dose 2 mg .ROUTE .STK-MED ONE Stop: 01/20/24 10:24 Last Admin: 01/20/24 12:31 Dose: Not Given Documented By: ARSENIO Fentanyl Citrate (Fentanyl Citrate 2,500 Mcg/250 Ml Bag) Confirm Administered Dose 2,500 mcg IV .STK-MED ONE Stop: 01/20/24 09:46 Last Admin: 01/20/24 10:39 Dose: Not Given Documented By: ARSENIO Furosemide (Furosemide 40 Mg/4 Ml Vial) Confirm Administered Dose 40 mg IV .STK- MED ONE Stop: 01/20/24 08:27 Last Admin: 01/20/24 08:30 Dose: Not Given Documented By: SYDNIE Furosemide (Furosemide 40 Mg/4 Ml Vial) 40 mg IV ONE ONE Stop: 01/20/24 08:46 Last Admin: 01/20/24 08:40 Dose: 40 mg Documented By: SYDNIE Furosemide (Furosemide Inj 20 Mg/2 Ml Vial) 20 mg IV ONE ONE Stop: 01/21/24 08:49 Last Admin: 01/21/24 09:28 Dose: 20 mg Documented By: JAMA Furosemide (Furosemide Inj 20 Mg/2 Ml Vial) 20 mg IV ONE ONE Stop: 01/21/24 23:28 Last Admin: 01/21/24 23:50 Dose: 20 mg Documented By: MAK Furosemide (Furosemide Inj 20 Mg/2 Ml Vial) 20 mg IV ONE ONE Stop: 01/22/24 07:34 Last Admin: 01/22/24 07:38 Dose: 20 mg Documented By: JAMA Heparin Sodium/Dextrose (Heparin Iv Adult Wt-Based Low-Dose *No* Initial Bolus Protocol) 1 each IV ONE STA; Protocol Stop: 01/20/24 06:13 Last Admin: 01/20/24 06:28 Dose: 1 each Documented By: Heparin Sodium/Dextrose (Heparin Iv Adult Wt-Based Standard *No* Initial Bolus Protocol) 1 each IV ONE STA; Protocol Stop: 01/22/24 08:53 Last Admin: 01/22/24 09:16 Dose: Not Given Documented By: JAMA Sodium Chloride (Nss) 250 mls @ 999 mls/hr IV .Q16M ONE Stop: 01/20/24 05:38 Last Infusion: 01/20/24 06:10 Dose: Infused Documented By: Admin: 01/20/24 05:35 Dose: 999 mls/hr Documented By: Multivitamins 10 ml/ Thiamine HCl 100 mg/ Folic Acid 1 mg/Sodium Chloride 1,011.2 mls @ 500 mls/hr IV .Q2H2M ONE Stop: 01/20/24 07:30 Last Infusion: 01/20/24 10:40 Dose: Infused Documented By: Admin: 01/20/24 06:17 Dose: 500 mls/hr Documented By: Magnesium Sulfate/Dextrose (Magnesium Sulfate / D5w) 1 gm in 100 mls @ 100 mls/hr IV Q1H [facility] Stop: 01/20/24 08:11 Last Infusion: 01/20/24 08:19 Dose: Infused Documented By: Admin: 01/20/24 07:26 Dose: 100 mls/hr Documented By: Infusion: 01/20/24 07:25 Dose: Infused Documented By: Admin: 01/20/24 06:28 Dose: 100 mls/hr Documented By: Digoxin 250 mcg/ Syringe 10 mls @ 2 mls/min IV NOW STA Stop: 01/20/24 06:23 Last Admin: 01/20/24 06:57 Dose: 2 mls/min Documented By: Amiodarone HCl/Dextrose (Nexterone / D5w) 150 mg in 100 mls @ 600 mls/hr IV NOW STA Stop: 01/20/24 08:36 Last Infusion: 01/20/24 10:41 Dose: Infused Documented By: ARSENIO Co-signed By: AIDEN Admin: 01/20/24 08:34 Dose: 600 mls/hr Documented By: SYDNIE Co-signed By: ALEISHA Amiodarone HCl/Dextrose (Nexterone / D5w) 360 mg in 200 mls @ 33.333 mls/hr IV ONE ONE Stop: 01/20/24 14:37 Last Infusion: 01/20/24 10:00 Dose: Infused Documented By: ARSENIO Co-signed By: AIDEN Admin: 01/20/24 08:34 Dose: 1 mg/min, 33.3 mls/hr Documented By: SYDNIE Co-signed By: ALEISHA Amiodarone HCl/Dextrose (Nexterone / D5w) 360 mg in 200 mls @ 16.667 mls/hr IV .Q12H [facility] Stop: 02/19/24 14:29 Last Admin: 01/20/24 14:43 Dose: Not Given Documented By: ARSENIO Digoxin 250 mcg/ Syringe 10 mls @ 2 mls/min IV NOW STA Stop: 01/20/24 09:03 Last Admin: 01/20/24 13:26 Dose: Not Given Documented By: ARSENIO Magnesium Sulfate/Dextrose (Magnesium Sulfate / D5w) 1 gm in 100 mls @ 50 mls/hr IV NOW ONE Stop: 01/20/24 11:59 Last Infusion: 01/20/24 13:47 Dose: Infused Documented By: Admin: 01/20/24 11:23 Dose: 50 mls/hr Documented By: ARSENIO Piperacillin Sod/Tazobactam Sod (Zosyn) 4.5 gm in 100 mls @ 25 mls/hr IV Q8H [facility] Stop: 01/27/24 15:59 Last Infusion: 01/21/24 12:28 Dose: Infused Documented By: Admin: 01/21/24 08:11 Dose: 25 mls/hr Documented By: Infusion: 01/21/24 04:30 Dose: Infused Documented By: Admin: 01/21/24 00:16 Dose: 25 mls/hr Documented By: Infusion: 01/20/24 21:00 Dose: Infused Documented By: Admin: 01/20/24 16:21 Dose: 25 mls/hr Documented By: ARSENIO Vasopressin 20 units/ Sodium (Chloride) 101 mls @ 0 mls/hr IV .Q0M [facility] Stop: 02/19/24 10:29 Last Infusion: 01/21/24 12:31 Dose: Infused Documented By: JAMA Co-signed By: ARCELIA Infusion: 01/21/24 06:51 Dose: 0 unit/min, 0 mls/hr Documented By: KASEY Co-signed By: JAMA Infusion: 01/20/24 19:13 Dose: 0 unit/min, 0 mls/hr Documented By: KASEY Co-signed By: ARSENIO Infusion: 01/20/24 12:00 Dose: 0 unit/min, 0 mls/hr Documented By: ARSENIO Co-signed By: CB Admin: 01/20/24 10:42 Dose: 0.04 unit/min, 12.1 mls/hr Documented By: ARSENIO Co-signed By: AMB Piperacillin Sod/Tazobactam Sod (Zosyn) 4.5 gm in 100 mls @ 25 mls/hr IV NOW ONE Stop: 01/20/24 14:29 Last Infusion: 01/20/24 15:31 Dose: Infused Documented By: Admin: 01/20/24 11:26 Dose: 25 mls/hr Documented By: ARSENIO Epinephrine HCl () 4 mg in 254 mls @ 4.694 mls/hr IV .Q24H [facility]; Protocol Stop: 02/19/24 11:59 Last Titration: 01/21/24 12:58 Dose: Infused Documented By: Titration: 01/21/24 09:18 Dose: 0 mcg/kg/min, 0 mls/hr Documented By: Titration: 01/21/24 08:54 Dose: 0.02 mcg/kg/min, 4.7 mls/hr Documented By: Admin: 01/21/24 08:20 Dose: 0.04 mcg/kg/min, 9.4 mls/hr Documented By: JAMA Co-signed By: ARCELIA Titration: 01/21/24 08:20 Dose: Infused Documented By: JAMA Co-signed By: ARCELIA Titration: 01/21/24 06:51 Dose: 0.06 mcg/kg/min, 14.1 mls/hr Documented By: KASEY Co-signed By: JAMA Titration: 01/20/24 21:05 Dose: 0.06 mcg/kg/min, 14.1 mls/hr Documented By: Titration: 01/20/24 19:13 Dose: 0.04 mcg/kg/min, 9.4 mls/hr Documented By: KASEY Co-signed By: ARSENIO Titration: 01/20/24 12:45 Dose: 0.04 mcg/kg/min, 9.4 mls/hr Documented By: Titration: 01/20/24 12:15 Dose: 0.03 mcg/kg/min, 7 mls/hr Documented By: Admin: 01/20/24 12:05 Dose: 0.02 mcg/kg/min, 4.7 mls/hr Documented By: WS Co-signed By: AMB Norepinephrine Bitartrate (Levophed/D5w) 4 mg in 250 mls @ 138.6 mls/hr IV .Q1H49M [facility]; Protocol Stop: 02/19/24 14:44 Last Admin: 01/21/24 19:11 Dose: Not Given Documented By: [facility] Admin: 01/21/24 19:11 Dose: Not Given Documented By: [facility] Admin: 01/21/24 19:11 Dose: Not Given Documented By: [facility] Admin: 01/21/24 19:10 Dose: Not Given Documented By: [facility] Admin: 01/21/24 19:10 Dose: Not Given Documented By: [facility] Admin: 01/21/24 19:09 Dose: Not Given Documented By: [facility] Admin: 01/21/24 15:32 Dose: Not Given Documented By: [facility] Admin: 01/21/24 15:32 Dose: Not Given Documented By: [facility] Admin: 01/21/24 15:32 Dose: Not Given Documented By: [facility] Titration: 01/21/24 12:42 Dose: Infused Documented By: [facility] Admin: 01/21/24 10:13 Dose: Not Given Documented By: [facility] Titration: 01/21/24 09:52 Dose: Infused Documented By: [facility] Titration: 01/21/24 06:51 Dose: 0 mcg/kg/min, 0 mls/hr Documented By: ShelbyT Co-signed By: KMY Titration: 01/20/24 19:13 Dose: 0 mcg/kg/min, 0 mls/hr Documented By: JMichaela Co-signed By: ARSENIO Titration: 01/20/24 15:11 Dose: 0 mcg/kg/min, 0 mls/hr Documented By: Titration: 01/20/24 15:10 Dose: 0 mcg/kg/min, 0 mls/hr Documented By: Titration: 01/20/24 13:15 Dose: 0.02 mcg/kg/min, 4.6 mls/hr Documented By: Titration: 01/20/24 12:45 Dose: 0.04 mcg/kg/min, 9.2 mls/hr Documented By: Titration: 01/20/24 12:30 Dose: 0.06 mcg/kg/min, 13.9 mls/hr Documented By: Titration: 01/20/24 12:15 Dose: 0.08 mcg/kg/min, 18.5 mls/hr Documented By: Titration: 01/20/24 12:00 Dose: 0.1 mcg/kg/min, 23.1 mls/hr Documented By: Titration: 01/20/24 11:55 Dose: 0.2 mcg/kg/min, 46.2 mls/hr Documented By: Titration: 01/20/24 11:50 Dose: 0.3 mcg/kg/min, 69.3 mls/hr Documented By: Titration: 01/20/24 11:45 Dose: 0.4 mcg/kg/min, 92.4 mls/hr Documented By: Titration: 01/20/24 11:40 Dose: 0.5 mcg/kg/min, 115.5 mls/hr Documented By: Admin: 01/20/24 11:35 Dose: 0.6 mcg/kg/min, 138.6 mls/hr Documented By: ARSENIO Co-signed By: AIDEN Titration: 01/20/24 11:35 Dose: Infused Documented By: Titration: 01/20/24 11:35 Dose: Infused Documented By: WS Co-signed By: AIDEN Admin: 01/20/24 10:30 Dose: 1 mcg/kg/min, 231 mls/hr Documented By: WS Co-signed By: AIDEN Potassium Chloride (K Hoang / Wtr) 20 meq in 100 mls @ 50 mls/hr IV ONE ONE Stop: 01/20/24 23:29 Last Infusion: 01/21/24 01:30 Dose: Infused Documented By: KASEY Co-signed By: JIGNA Admin: 01/20/24 22:01 Dose: 50 mls/hr Documented By: KASEY Co-signed By: JIGNA Magnesium Sulfate/Dextrose (Magnesium Sulfate / D5w) 1 gm in 100 mls @ 50 mls/hr IV Q2H [facility] Stop: 01/21/24 01:14 Last Infusion: 01/21/24 02:00 Dose: Infused Documented By: Admin: 01/20/24 23:45 Dose: 50 mls/hr Documented By: Infusion: 01/20/24 23:45 Dose: Infused Documented By: Admin: 01/20/24 22:01 Dose: 50 mls/hr Documented By: KASEY Potassium Chloride (K Hoang / Wtr) 20 meq in 100 mls @ 50 mls/hr IV ONE ONE Stop: 01/21/24 01:59 Last Infusion: 01/21/24 02:45 Dose: Infused Documented By: KASEY Co-signed By: RIYA Admin: 01/21/24 00:16 Dose: 50 mls/hr Documented By: KASEY Co-signed By: RIYA Digoxin 300 mcg/ Syringe 10 mls @ 2 mls/min IV NOW STA Stop: 01/21/24 15:06 Last Admin: 01/21/24 15:19 Dose: 2 mls/min Documented By: JAMA Digoxin 150 mcg/ Syringe 10 mls @ 2 mls/min IV ONE ONE Stop: 01/21/24 19:34 Last Admin: 01/21/24 19:34 Dose: 2 mls/min Documented By: [facility] Potassium Chloride (K Hoang / Wtr) 10 meq in 100 mls @ 100 mls/hr IV ONE ONE Stop: 01/22/24 00:30 Last Infusion: 01/22/24 01:00 Dose: Infused Documented By: [facility] Admin: 01/21/24 23:50 Dose: 100 mls/hr Documented By: [facility] Potassium Chloride (K Hoang / Wtr) 20 meq in 100 mls @ 50 mls/hr IV Q2H YASRI Stop: 01/22/24 08:59 Last Infusion: 01/22/24 09:34 Dose: Infused Documented By: JAMA Co-signed By: ARCELIA Admin: 01/22/24 07:09 Dose: 50 mls/hr Documented By: JAMA Co-signed By: ARCELIA Infusion: 01/22/24 07:09 Dose: Infused Documented By: JAMA Co-signed By: ARCELIA Admin: 01/22/24 05:10 Dose: 50 mls/hr Documented By: [facility] Co-signed By: WILD Digoxin 150 mcg/ Syringe 10 mls @ 2 mls/min IV NOW STA Stop: 01/22/24 07:39 Last Admin: 01/22/24 07:53 Dose: 2 mls/min Documented By: JAMA Amiodarone HCl/Dextrose (Nexterone / D5w) 150 mg in 100 mls @ 600 mls/hr IV NOW STA Stop: 01/22/24 08:52 Last Infusion: 01/22/24 09:10 Dose: Infused Documented By: ARCELIA Co-signed By: JAMA Admin: 01/22/24 08:55 Dose: 600 mls/hr Documented By: JAMA Co-signed By: ARCELIA Levetiracetam (Levetiracetam 500 Mg/5 Ml Vial) 1,000 mg IV NOW STA Stop: 01/20/24 09:56 Last Admin: 01/20/24 10:17 Dose: 1,000 mg Documented By: ARSENIO Lorazepam (Lorazepam 1 Mg/1 Ml Syr Ed Inj Use) 1 mg IV ONE STA Stop: 01/20/24 05:33 Last Admin: 01/20/24 05:42 Dose: 1 mg Documented By: Lorazepam (Lorazepam 1 Mg/1 Ml Syr Ed Inj Use) Confirm Administered Dose 1 mg .ROUTE .STK-MED ONE Stop: 01/20/24 08:51 Last Admin: 01/20/24 09:41 Dose: 1 mg Documented By: SYDNIE Metoprolol Tartrate (Metoprolol Tartrate 1 Mg/Ml Vial) 5 mg IV NOW STA Stop: 01/20/24 05:11 Last Admin: 01/20/24 05:18 Dose: 5 mg Documented By: Metoprolol Tartrate (Metoprolol Tartrate 1 Mg/Ml Vial) Confirm Administered Dose 5 mg IV .STK-MED ONE Stop: 01/20/24 05:13 Last Admin: 01/20/24 05:19 Dose: Not Given Documented By: Metoprolol Tartrate (Metoprolol Tartrate 1 Mg/Ml Vial) 5 mg IV NOW STA Stop: 01/20/24 05:19 Last Admin: 01/20/24 05:21 Dose: 5 mg Documented By: Metoprolol Tartrate (Metoprolol Tartrate 1 Mg/Ml Vial) Confirm Administered Dose 5 mg IV .STK-MED ONE Stop: 01/21/24 14:38 Last Admin: 01/21/24 14:41 Dose: 5 mg Documented By: JAMA Miscellaneous (Rapid Sequence Induction Bag) Confirm Administered Dose 1 each N/A .STK-MED ONE Stop: 01/20/24 08:54 Last Admin: 01/20/24 10:40 Dose: Not Given Documented By: ARSENIO Miscellaneous (Icu Protocol For Hyperglycemia) 1 each N/A ACHS YASIR Stop: 01/22/24 11:29 Last Admin: 01/20/24 13:46 Dose: 1 each Documented By: ARSENIO Nicotine (Nicotine 21 Mg/24 Hr Tdsy) 1 patch TD NOW STA Stop: 01/20/24 05:11 Last Admin: 01/20/24 05:42 Dose: 1 patch Documented By: Norepinephrine Bitartrate (Norepinephrine/D5w 4 Mg/250 Ml) Confirm Administered Dose 4 mg IV .STK-MED ONE Stop: 01/20/24 13:35 Last Admin: 01/20/24 14:42 Dose: Not Given Documented By: ARSENIO Norepinephrine Bitartrate (Norepinephrine/D5w 4 Mg/250 Ml) Confirm Administered Dose 4 mg IV .STK-MED ONE Stop: 01/22/24 08:42 Last Admin: 01/22/24 09:11 Dose: Not Given Documented By: ARCELIA Propofol (Propofol Iv Emulsion 10 Mg/Ml 100 Ml Vial) Confirm Administered Dose 1,000 mg IV .STK-MED ONE Stop: 01/20/24 09:46 Last Admin: 01/20/24 10:40 Dose: Not Given Documented By: ARSENIO Description This is a 21 electrode EEG with a single channel dedicated to limited EKG. The electrodes were placed in accordance with the International 10-20 system. Interpretation This is a 21 electrode EEG with a single channel dedicated to limited EKG. The electrodes were placed in accordance with the International 10-20 system. There is a posterior dominant rhythm of 5-6 Hz which is symmetrically distributed with diffuse slowing. Photic stimulation: not performed. Hyperventilation performed: ___ unremarkable; _x_ not performed. There is no focal slowing. No epileptiform abnormalities. Sleep stage: __ not achieved, __x_drowsy state, ___ Stage II, ___ REM stage achieved. Interpretation Mildly abnormal study due to diffuse slowing. No epileptic discharge noted. [facility] Procedure Codes Indication for Procedure (1) Cardiogenic shock: Neurology Neurology: 12876 EEG include record awake & drowsy
[2024-01-22] MEDS: HEPARIN SODIUM/DEXTROSE 25,000 UNITS/500 ML BAG IV SCH (10:25)
--- NOTE | 2024-01-22 10:35 | XRay Report ---
XR chest 1V portable CLINICAL HISTORY: f/u TECHNIQUE: Single frontal radiograph of the chest was obtained. Comparison: Comparison is made to chest radiograph 01/21/2024 FINDINGS: Endotracheal tube terminates 2.4 cm above the marga. Enteric tube is stable. Cardiomegaly is noted. Multifocal airspace opacities are seen. No evidence of pleural effusion or pneumothorax. IMPRESSION: Satisfactory position of lines and tubes. Stable multifocal airspace opacities. ACT 112: Negative or not required by law. Electronically signed by: Abdias Hennessy M.D. 01/22/2024 10:33 AM
[2024-01-22] MEDS: LEVALBUTEROL HCL 0.63 MG/3 ML NEB NEB PRN (10:58)
--- NOTE | 2024-01-22 12:36 | Cardiology Progress Note ---
Date of Service January 22, 2024 Assessment & Plan (1) Cardiogenic shock: (2) Atrial fibrillation with rapid ventricular response: Plan 1. Cardiogenic shock: Prognosis poor, he is on multiple pressors. I have little to offer. 2. Atrial fibrillation: On his current medical regimen his heart rate appears adequately controlled. I have not altered his medications. Admission and Anticipated Discharge Date Admission Date: January 20, 2024 Subjective Chart reviewed and patient examined. Still intubated on multiple pressors. Results & Data Vital Signs (Past 12 Hours) Vital Signs Temp Pulse Resp BP Pulse Ox Pulse Ox O2 Del Method 01/22/24 12:00 01/22/24 12:00 35.8 C L 79 16 95 01/22/24 12:00 01/22/24 11:51 35.8 C L 94 H 16 94 01/22/24 11:45 35.8 C L 99 H 16 94 01/22/24 11:36 35.9 C L 94 H 16 95 01/22/24 11:24 35.9 C L 87 16 94 01/22/24 11:00 01/22/24 10:51 36.1 C L 94 H 16 94 01/22/24 10:45 36.2 C L 104 H 19 94 01/22/24 10:45 103 H 17 93 01/22/24 10:30 36.3 C L 105 H 18 91 01/22/24 10:00 36.5 C 107 H 16 97 01/22/24 09:42 36.7 C 108 H 16 96 01/22/24 09:39 36.7 C 104 H 16 96 01/22/24 09:33 36.7 C 99 H 16 95 01/22/24 09:15 36.9 C 116 H 16 96 01/22/24 09:09 36.9 C 112 H 16 94 01/22/24 08:51 37.0 C 140 H 17 94 01/22/24 08:48 37.0 C 174 H 15 94 01/22/24 08:42 37.1 C 172 H 16 92 01/22/24 08:36 37.1 C 175 H 14 92 01/22/24 08:21 37.3 C 129 H 15 94 01/22/24 08:15 37.3 C 130 H 18 94 01/22/24 08:05 130 H 19 97 01/22/24 08:00 Mechanical Vent 01/22/24 08:00 107 H 01/22/24 08:00 01/22/24 08:00 01/22/24 07:53 150 H 01/22/24 07:42 37.5 C 125 H 14 98 01/22/24 07:30 37.5 C 131 H 19 98 01/22/24 07:00 37.6 C H 129 H 14 97 01/22/24 06:30 37.6 C H 137 H 17 97 Mechanical Vent 01/22/24 06:00 37.6 C H 116 H 17 97 Mechanical Vent 01/22/24 05:39 37.6 C H 112 H 16 98 01/22/24 05:00 37.7 C H 107 H 16 97 Mechanical Vent 01/22/24 04:30 37.8 C H 131 H 16 96 01/22/24 04:00 37.8 C H 110 H 16 96 Mechanical Vent 01/22/24 04:00 118 H 98/54 L 01/22/24 04:00 01/22/24 04:00 96 01/22/24 03:17 19 01/22/24 03:00 37.9 C H 120 H 16 97 Mechanical Vent 01/22/24 02:36 37.8 C H 106 H 16 98 Mechanical Vent 01/22/24 02:00 37.6 C H 123 H 15 97 Mechanical Vent 01/22/24 01:30 37.5 C 106 H 17 97 01/22/24 01:00 37.6 C H 107 H 16 97 Mechanical Vent O2 Del Method FiO2 01/22/24 12:00 35 01/22/24 12:00 01/22/24 12:00 Mechanical Vent 01/22/24 11:51 01/22/24 11:45 01/22/24 11:36 01/22/24 11:24 01/22/24 11:00 Mechanical Vent 01/22/24 10:51 01/22/24 10:45 01/22/24 10:45 35 01/22/24 10:30 01/22/24 10:00 01/22/24 09:42 01/22/24 09:39 01/22/24 09:33 01/22/24 09:15 01/22/24 09:09 01/22/24 08:51 01/22/24 08:48 01/22/24 08:42 01/22/24 08:36 01/22/24 08:21 01/22/24 08:15 01/22/24 08:05 40 01/22/24 08:00 40 01/22/24 08:00 01/22/24 08:00 40 01/22/24 08:00 Mechanical Vent 01/22/24 07:53 01/22/24 07:42 01/22/24 07:30 01/22/24 07:00 01/22/24 06:30 50 01/22/24 06:00 50 01/22/24 05:39 01/22/24 05:00 50 01/22/24 04:30 01/22/24 04:00 01/22/24 04:00 01/22/24 04:00 50 01/22/24 04:00 Mechanical Vent 01/22/24 03:17 01/22/24 03:00 01/22/24 02:36 50 01/22/24 02:00 01/22/24 01:30 01/22/24 01:00 Laboratory Results Cardiac Enzymes 01/22/24 Range/Units 04:07 AST 325 H (13-39) U/L Coagulation 01/22/24 Range/Units 04:07 PT 13.8 H (9.0-12.0) Seconds APTT 30 (21-31) Seconds CBC 01/22/24 Range/Units 04:07 WBC 8.58 (4.8-10.8) K/ul RBC 3.95 L (4.70-6.10) M/uL Hgb 13.8 L (14.0-18.0) g/dl Hct 39.4 L (42.0-52.0) % Plt Count 69 L (130-400) K/uL Neut # (Auto) 7.06 H (1.40-6.50) K/uL Lymph # (Auto) 0.83 L (1.20-3.40) K/uL [place] # (Auto) 0.51 (0.11-0.59) K/uL Eos # (Auto) 0.08 (0.00-0.50) K/uL Baso # (Auto) 0.05 (0.00-0.20) K/uL Comprehensive Metabolic Panel 01/22/24 Range/Units 04:07 Sodium 132 L (136-145) mmol/L Potassium 3.5 D (3.5-5.1) mmol/L Chloride 99 (98-107) mmol/L Carbon Dioxide 25 (21-32) mmol/L BUN 9 (6-23) mg/dl Creatinine 0.63 (0.6-1.4) mg/dl Glucose 87 (70-99(Fasting)) mg/dl Calcium 8.1 L (8.6-10.3) mg/dl Direct Bilirubin 2.3 H (0-0.2) mg/dl AST 325 H (13-39) U/L ALT 382 H (7-52) U/L Alkaline Phosphatase 63 (34-104) U/L Total Protein 5.0 L (6.0-8.3) gm/dl Albumin 3.3 L (3.4-5.0) gm/dl Intake and Output 01/21/24 01/22/24 01/22/24 22:59 06:59 14:59 Intake Total 262.449 / 731.693 200 / 598.971 9590.763 / 1096.763 Output Total 320 / 1994 875 / 1994 950 / 950 Balance -57.551 / -1263.307 -675 / -1263.307 146.763 / 146.763 Intake: IV 262.449 / 731.693 200 / 573.843 1997.763 / 1096.763 Amiodarone / D5w 150 mg In 100 100 / 100 ml @ 600 mls/hr IV NOW STA Rx#: [id number] Ampicillin/Sulbactam Sod 3,000 200 / 300 100 / 300 100 / 100 mg In 100 ml @ 200 mls/hr IV Q6H [facility] Rx#:[id number] DOBUTamine / D5W 1,000 mg In 19.142 / 19.142 250 ml @ 2.5 MCG/KG/MIN 2.355 mls/hr IV .Q24H [facility] Rx#: [id number] Magnesium Sulfate / D5w 1 gm In 345.834 / 345.834 100 ml @ 50 mls/hr IV Q2H [facility] Rx#:[id number] Norepinephrine/D5w 4 mg In 250 37.705 / 37.705 ml @ 0.09 MCG/KG/MIN 21.195 mls /hr IV .[id number] [facility] Rx#: [id number] Potassium Chloride / Wtr 10 meq 100 / 100 In 100 ml @ 100 mls/hr IV ONE ONE Rx#:[id number] Potassium Chloride / Wtr 20 meq 199.167 / 199.167 In 100 ml @ 50 mls/hr IV Q2H [facility] Rx#:[id number] fentaNYL citrate 2,500 mcg In 38.125 / 38.125 158.000 / 158.000 250 ml @ 75 MCG/HR 7.5 mls/hr IV .[id number] [facility] Rx#:[id number] propofoL 1,000 mg In 100 ml @ 24.324 / 65.446 136.915 / 136.915 30 MCG/KG/MIN 11.088 mls/hr IV .Q9H2M [facility] Rx#:[id number] Output: Urine 100 / 450 Urine Amount (Catheter) 220 / 1545 875 / 1545 950 / 950 Burk/Indwelling 220 / 1545 875 / 1545 950 / 950 Other: Weight 62.8 kg Weight Measurement Method Built in [facility] PG Care Time/CCT Total # of Minutes Spent Total Time Spent with Patient: Total time spent is greater than 50% in coordination of care (as documented) at patient's floor/unit and/or counseling patient: Coding Level of Care Code 42225 SUB INP/OBS CARE 1/25MIN Diagnoses Cardiogenic shock R57.0 Atrial fibrillation with rapid ventricular response I48.91
--- NOTE | 2024-01-22 14:09 | Hospitalist Progress Note ---
Date of Service January 22, 2024 Assessment & Plan (1) Non-ischemic cardiomyopathy: Plan: Elevated troponin/atrial flutter with RVR/history of paroxysmal atrial fibrillation and A-fib with RVR/hypertension/nonischemic cardiomyopathy- cardiopulmonary resuscitation with cpr for decompensated cardiogenic shock transfer to icu for ventilation, amiodarone gtt restarted 01/21 for possible seizure Keppra given but not continued elevated lft consistent with shock liver fever with concern for aspiration pneumonia now on unasyn has required pressors with cardiogenic shock now on dobutamine CT head without acute changes heparin gtt now restarted with afib/flutter unclear if elevated troponin was nstemi or demand ischemia, now after cpr will be difficult to tell (2) Respiratory failure: Plan: required intubation and ventilation sedated on CT chest likely aspiration , on unasyn (3) History of alcohol abuse: Plan: unclear of last drink, did get bananna bag, and is on thiamine also tobacco abuse Plan outlook guarded Admission and Anticipated Discharge Date Admission Date: January 20, 2024 Subjective Chart reviewed and patient examined. Still intubated on multiple pressors. more sedation and less responsive than 01/20 Physical Exam Physical Exam: coarse breath sounds, more prominent than one day ago cardiac was rapid now improved after amiodarone Results & Data Results & Data Vital Signs (Past 12 Hours) Vital Signs Temp Pulse Resp BP Pulse Ox Pulse Ox O2 Del Method 01/22/24 13:00 96.8 F L 81 16 97 01/22/24 12:33 96.4 F L 85 16 95 01/22/24 12:00 01/22/24 12:00 96.4 F L 79 16 95 01/22/24 12:00 01/22/24 11:51 96.4 F L 94 H 16 94 01/22/24 11:45 96.4 F L 99 H 16 94 01/22/24 11:36 96.6 F L 94 H 16 95 01/22/24 11:24 96.6 F L 87 16 94 01/22/24 11:00 01/22/24 10:51 97.0 F L 94 H 16 94 01/22/24 10:45 97.2 F L 104 H 19 94 01/22/24 10:45 103 H 17 93 01/22/24 10:30 97.3 F L 105 H 18 91 01/22/24 10:00 97.7 F 107 H 16 97 01/22/24 09:42 98.1 F 108 H 16 96 01/22/24 09:39 98.1 F 104 H 16 96 01/22/24 09:33 98.1 F 99 H 16 95 01/22/24 09:15 98.4 F 116 H 16 96 01/22/24 09:09 98.4 F 112 H 16 94 01/22/24 08:51 98.6 F 140 H 17 94 01/22/24 08:48 98.6 F 174 H 15 94 01/22/24 08:42 98.8 F 172 H 16 92 01/22/24 08:36 98.8 F 175 H 14 92 01/22/24 08:21 99.1 F 129 H 15 94 01/22/24 08:15 99.1 F 130 H 18 94 01/22/24 08:05 130 H 19 97 01/22/24 08:00 Mechanical Vent 01/22/24 08:00 107 H 01/22/24 08:00 01/22/24 08:00 01/22/24 07:53 150 H 01/22/24 07:42 99.5 F 125 H 14 98 01/22/24 07:30 99.5 F 131 H 19 98 01/22/24 07:00 99.7 F H 129 H 14 97 01/22/24 06:30 99.7 F H 137 H 17 97 Mechanical Vent 01/22/24 06:00 99.7 F H 116 H 17 97 Mechanical Vent 01/22/24 05:39 99.7 F H 112 H 16 98 01/22/24 05:00 99.9 F H 107 H 16 97 Mechanical Vent 01/22/24 04:30 100.0 F H 131 H 16 96 01/22/24 04:00 100.0 F H 110 H 16 96 Mechanical Vent 01/22/24 04:00 118 H 98/54 L 01/22/24 04:00 01/22/24 04:00 96 01/22/24 03:17 19 01/22/24 03:00 100.2 F H 120 H 16 97 Mechanical Vent 01/22/24 02:36 100.0 F H 106 H 16 98 Mechanical Vent O2 Del Method FiO2 01/22/24 13:00 01/22/24 12:33 01/22/24 12:00 35 01/22/24 12:00 01/22/24 12:00 Mechanical Vent 01/22/24 11:51 01/22/24 11:45 01/22/24 11:36 01/22/24 11:24 01/22/24 11:00 Mechanical Vent 01/22/24 10:51 01/22/24 10:45 01/22/24 10:45 35 01/22/24 10:30 01/22/24 10:00 01/22/24 09:42 01/22/24 09:39 01/22/24 09:33 01/22/24 09:15 01/22/24 09:09 01/22/24 08:51 01/22/24 08:48 01/22/24 08:42 01/22/24 08:36 01/22/24 08:21 01/22/24 08:15 01/22/24 08:05 40 01/22/24 08:00 40 01/22/24 08:00 01/22/24 08:00 40 01/22/24 08:00 Mechanical Vent 01/22/24 07:53 01/22/24 07:42 01/22/24 07:30 01/22/24 07:00 01/22/24 06:30 50 01/22/24 06:00 50 01/22/24 05:39 01/22/24 05:00 50 01/22/24 04:30 01/22/24 04:00 01/22/24 04:00 01/22/24 04:00 50 01/22/24 04:00 Mechanical Vent 01/22/24 03:17 01/22/24 03:00 01/22/24 02:36 50 Laboratory Results reviewed cbc reviewed chemistry-LFT improving PG Care Time/CCT Total # of Minutes Spent Total Time Spent with Patient: Total time spent is greater than 50% in coordination of care (as documented) at patient's floor/unit and/or counseling patient: Coding Level of Care Code 48973 SUB INP/OBS CARE 3/50MIN Diagnoses Non-ischemic cardiomyopathy I42.8 Respiratory failure J96.90 History of alcohol abuse F10.11
[2024-01-22] MEDS: AMIODARONE / D5W 360 MG/200 ML BAG IV SCH (14:33)
[2024-01-22 16:05] LABS: Basophils # (auto) 0.06 K/uL (0.00-0.20); Basophils % (auto) 0.7 %; Eosinophils # (auto) 0.09 K/uL (0.00-0.50); Eosinophils % (auto) 1.1 %; Hematocrit (blood only) 36.7 % (42.0-52.0); Hemoglobin 12.7 g/dl (14.0-18.0); Immature Granulocytes # (auto) 0.07 K/uL (0.01-0.20); Immature Granulocytes % (auto) 0.9 %; Lymphocytes # (auto) 0.69 K/uL (1.20-3.40); Lymphocytes % (auto) 8.5 %; Mean Corpuscular Hgb Conc 34.6 g/dL (32.0-36.0); Mean Corpuscular Volume 101.1 fL (80.0-100.0); Mean Platelet Volume 10.7 fL (9.4-12.4); Monocytes # (auto) 0.75 K/uL (0.11-0.59); Monocytes % (auto) 9.2 %; Neutrophils % (auto) 79.6 %; Platelet Count 68 K/uL (130-400); RDW Coefficient of Variation 13.4 % (11.5-14.5); RDW Standard Deviation 50.5 fL (36.4-46.3); Red Blood Count 3.63 M/uL (4.70-6.10); White Blood Count 8.16 K/ul (4.8-10.8)
[2024-01-22 16:33] LABS: ANTI-Xa, UFH(UnfractionatedHep 0.58 IU/ml (0.3-0.7)
[2024-01-22 19:16] LABS: BUN Creatinine Ratio 11.1 (10-20); Calcium 7.6 mg/dl (8.6-10.3); Creatinine Clr Calc Pharmacy 113.5 ml/min; Est GFR (African American) 125.9 ml/min; Est GFR (Non-African American) 108.6 ml/min; Potassium 3.6 mmol/L (3.5-5.1)
[2024-01-22] MEDS: POTASSIUM CHLORIDE / WTR 20 MEQ/100 ML PLCT IV ONE (20:13)
[2024-01-22] MEDS: BUDESONIDE 0.5 MG/2 ML VIAL (PULMICORT) NEB SCH (20:14)
[2024-01-23 04:39] LABS: Basophils # (auto) 0.05 K/uL (0.00-0.20); Basophils % (auto) 0.8 %; Eosinophils # (auto) 0.11 K/uL (0.00-0.50); Eosinophils % (auto) 1.7 %; Hematocrit (blood only) 33.5 % (42.0-52.0); Hemoglobin 11.5 g/dl (14.0-18.0); Immature Granulocytes # (auto) 0.08 K/uL (0.01-0.20); Immature Granulocytes % (auto) 1.2 %; Lymphocytes # (auto) 0.78 K/uL (1.20-3.40); Lymphocytes % (auto) 12.1 %; Mean Corpuscular Hemoglobin 34.3 pg (25.0-34.0); Mean Corpuscular Hgb Conc 34.3 g/dL (32.0-36.0); Mean Platelet Volume 10.8 fL (9.4-12.4); Monocytes # (auto) 0.75 K/uL (0.11-0.59); Monocytes % (auto) 11.6 %; Neutrophils # (auto) 4.67 K/uL (1.40-6.50); Neutrophils % (auto) 72.6 %; Platelet Count 66 K/uL (130-400); RDW Coefficient of Variation 13.2 % (11.5-14.5); RDW Standard Deviation 49.1 fL (36.4-46.3); Red Blood Count 3.35 M/uL (4.70-6.10); White Blood Count 6.44 K/ul (4.8-10.8)
[2024-01-23 04:59] LABS: Albumin Globulin Ratio 1.6 (0.9-2); Albumin Level 2.8 gm/dl (3.4-5.0); BUN Creatinine Ratio 10.5 (10-20); Bilirubin,Total 2.6 mg/dl (0.2-1.0); Calcium 7.4 mg/dl (8.6-10.3); Creatinine Clr Calc Pharmacy 125.5 ml/min; Est GFR (African American) 131.2 ml/min; Est GFR (Non-African American) 113.2 ml/min; Globulin 1.7 gm/dl (2.5-4.0); Magnesium 1.9 mg/dl (1.7-2.4); Phosphorus 3.1 mg/dl (2.5-4.9); Potassium 3.6 mmol/L (3.5-5.1); Total Protein 4.5 gm/dl (6.0-8.3)
[2024-01-23] MEDS: MAGNESIUM OXIDE 400 MG TAB NG SCH (05:33)
[2024-01-23] MEDS: POTASSIUM CHLORIDE 20 MEQ/15 ML UDC NG SCH (05:33)
[2024-01-23 05:44] LABS: ANTI-Xa, UFH(UnfractionatedHep 0.36 IU/ml (0.3-0.7); INR 1.1 (0.9-1.1)
[2024-01-23] MEDS ORDERED: STAT IV Infusion **Titration per Protocol STA (07:43)
--- NOTE | 2024-01-23 07:46 | Critical Care Progress Note ---
Date of Service January 23, 2024 Assessment & Plan (1) Elevated troponin: (2) Atrial flutter with rapid ventricular response: (3) Acute on chronic HFrEF (heart failure with reduced ejection fraction): (4) Current smoker: (5) Non-ischemic cardiomyopathy: (6) Cardiogenic shock: (7) High anion gap metabolic acidosis: (8) NAHUN (acute kidney injury): (9) Transaminitis: (10) Bilirubinemia: (11) Aspiration pneumonia: (12) Pulmonary edema: (13) COPD with emphysema: Plan Reason Critically Ill: 58-year-old male presented to hospital with complaints of shortness of breath. Sent to ICU for cardiac arrest, intubated Past medical history: Systolic CHF, A-fib on Xarelto, nonischemic cardiomyopathy, hypertension Neuro - [facility] ICU: Unable to assess Propofol and fentanyl for sedation --New onset seizure on the day of presentation to the ER No recurrence Etiology is not clear Got a loading dose of Keppra on 01/20/2024 TSH within normal limit CT of the head 01/20/2024 negative for any intracranial findings. EEG 01/22/2024: Mild abnormal study diffuse slowing, no epileptic activity noted Cardiac - -- Cardiac arrest with cardiogenic shock Etiology is likely cardiac/systolic CHF Will continue with inotropic support --A-fib with RVR Currently rate controlled Did get amiodarone bolus in the ED --> restarted 01/22/2024 Got bolus of 300 mcg bolus 01/21/2024 followed by 150 mcg x 2 on 01/22/2024 --Elevated troponins Likely type II [place] Trending down --Systolic CHF Decrease in EF from 40% to 25% 2D echo 01/20/2024: EF 20-25%, normal RV, mildly reduced RV function, PASP 40-45 mmHg, mild MR Respiratory - CT chest 01/20/2024 personally reviewed: Centrilobular emphysema appreciated bilaterally Interlobular thickening appreciated bilaterally Consolidative process appreciated bilateral lower lobes Small bilateral pleural effusion No significant mediastinal lymphadenopathy -- VDRF For airway protection secondary to cardiac arrest Continue with ventilatory support Keep RASS -1 Daily sedation holidays and SBT's Chlorhexidine mouthwash --Hemoptysis --> resolved Seems to be coming from pulmonary edema --Hypoxic respiratory failure Likely secondary to pulmonary edema with possible aspiration Diuresis as tolerated Continue with antibiotic -- COPD with emphysema Nebulized treatment while in the hospital GI - -- Transaminitis with hyperbilirubinemia --> improving Likely from hypotension Continue to trend RENAL/LYTES - --S/p NAHUN Monitor BUN/creatinine Avoid nephrotoxic medications Strict ins and outs --Hyponatremia Serum osmolality 274 TSH within normal limit -- S/p HAGMA Delta-delta: Pure anion Likely sec to lactic acidosis Monitor - -- Continue with Burk catheter ENDO - -- ICU hyperglycemia protocol HEME - -- Hemoglobin trending down No clear source of bleeding Monitor H&H -- Thrombocytopenia Continue to monitor ID - -- Aspiration pneumonia Continue with antibiotics Sputum culture growing light normal shaista --Prophylaxis VTE: Xarelto at home, heparin drip on hold GI: Pantoprazole Lines: Right femoral TLC and arterial, peripheral Diet: Trophic tube feeds Plan: In/out: +1.2 L, urine output 1860 40 mg of Lasix to be given today. Magnesium and potassium being replaced Patient's hemoglobin is trickling down, he is +1.2 L, it could be dilutional. Heparin drip has been on hold Will repeat H&H later today Continue with dobutamine. Continue with amiodarone drip Trial of extubation to BiPAP 04/14 today Patient will likely need to go to rehab as he has significant generalized weakness I have personally spent 38 minutes of critical care time in the direct management of this patient. This is a life/limb threatening event. This includes time spent evaluating patient, direct bedside care, chart review, placing orders, interpretation of diagnostic studies, discussion with consultants, patient, and family members, as well as other required patient management activities. This time is exclusive of all separately billable procedures, and teaching time and separate from and in addition to any other critical care service time. Admission and Anticipated Discharge Date Admission Date: January 20, 2024 Subjective Patient seen and examined at bedside. No acute distress, no adverse events overnight He was on 0.4 of Precedex. Fentanyl and propofol were turned off He was on 0.5 amiodarone Heart rate was in the 110s to 120s On dobutamine 5 with MAP hovering around 65 Patient was answering all the questions appropriately. He denied any chest pain, no abdominal pain. Review of Systems 2 Review of Systems: All systems reviewed & are unremarkable except as noted in Subjective Physical Exam 2 Physical Exam: Constitutional: No acute distress HEENT: PERRLA, sluggish pupillary response Respiratory system: Decreased air entry bilaterally, positive rhonchi, no wheeze, mild crackles bilateral lower lobes CVS: S1-S2 positive, no murmurs or gallops, tachycardia Abdomen: Soft, nontender, nondistended, positive bowel sounds x4 Extremities: +1 pulses bilaterally radialis/ dorsalis pedis, no cyanosis, no edema, cold extremities Neuro: RASS -1, breathing over the vent, following commands Psych: Unable to assess G/U: Positive Burk Skin: no rashes, warm and dry Lymphatic: no cervical or axillary lymphadenopathy Results & Data Results & Data Vital Signs (Past 12 Hours) Vital Signs Temp Pulse Pulse Resp BP Pulse Ox Pulse Ox 01/23/24 06:03 37.6 C H 120 H 15 92 01/23/24 05:36 37.4 C 118 H 15 92 01/23/24 05:00 37.4 C 117 H 19 93 01/23/24 04:30 37.3 C 117 H 17 96 01/23/24 04:06 102 H 16 97 01/23/24 04:03 37.3 C 99 H 16 95 01/23/24 04:00 01/23/24 04:00 92 01/23/24 03:30 37.3 C 95 H 16 97 01/23/24 03:06 37.3 C 108 H 17 95 01/23/24 02:30 37.3 C 98 H 16 97 01/23/24 02:12 37.3 C 93 H 16 97 01/23/24 01:33 37.4 C 108 H 16 96 01/23/24 01:00 37.4 C 103 H 16 91 01/23/24 00:30 37.5 C 108 H 16 95 01/23/24 00:00 37.4 C 108 H 16 95 01/23/24 00:00 01/23/24 00:00 94 01/23/24 00:00 98 H 111/50 L 01/22/24 23:58 103 H 01/22/24 23:30 37.4 C 96 H 16 99 01/22/24 23:00 37.4 C 102 H 16 97 01/22/24 22:39 109 H 16 96 01/22/24 22:30 37.5 C 107 H 16 96 01/22/24 22:00 37.5 C 115 H 16 96 01/22/24 21:30 37.6 C H 108 H 16 93 01/22/24 21:00 37.7 C H 121 H 22 92 01/22/24 20:37 107 H 16 99 01/22/24 20:34 107 H 16 99 01/22/24 20:30 37.8 C H 124 H 16 95 01/22/24 20:00 01/22/24 20:00 37.9 C H 104 H 16 96 01/22/24 20:00 01/22/24 20:00 O2 Del Method O2 Del Method FiO2 01/23/24 06:03 Mechanical Vent 35 01/23/24 05:36 Mechanical Vent 35 01/23/24 05:00 Mechanical Vent 35 01/23/24 04:30 Mechanical Vent 35 01/23/24 04:06 35 01/23/24 04:03 Mechanical Vent 35 01/23/24 04:00 35 01/23/24 04:00 Mechanical Vent 01/23/24 03:30 Mechanical Vent 35 01/23/24 03:06 Mechanical Vent 35 01/23/24 02:30 Mechanical Vent 35 01/23/24 02:12 Mechanical Vent 35 01/23/24 01:33 Mechanical Vent 35 01/23/24 01:00 Mechanical Vent 35 01/23/24 00:30 Mechanical Vent 01/23/24 00:00 Mechanical Vent 35 01/23/24 00:00 35 01/23/24 00:00 Mechanical Vent 01/23/24 00:00 01/22/24 23:58 01/22/24 23:30 01/22/24 23:00 Mechanical Vent 35 01/22/24 22:39 30 01/22/24 22:30 Mechanical Vent 35 01/22/24 22:00 Mechanical Vent 35 01/22/24 21:30 01/22/24 21:00 Mechanical Vent 35 01/22/24 20:37 Mechanical Vent 35 01/22/24 20:34 35 01/22/24 20:30 01/22/24 20:00 Mechanical Vent 35 01/22/24 20:00 Mechanical Vent 35 01/22/24 20:00 35 01/22/24 20:00 Mechanical Vent Laboratory Results 01/23/24 04:18 01/23/24 04:18 Coding Level of Care Code 25965 CRITICAL CARE 1ST 30-74M Diagnoses Elevated troponin R77.8 Atrial flutter with rapid ventricular response I48.92 Acute on chronic HFrEF (heart failure with reduced ejection fraction) I50.23 Current smoker F17.200 Non-ischemic cardiomyopathy I42.8 Cardiogenic shock R57.0 High anion gap metabolic acidosis E87.29 NAHUN (acute kidney injury) N17.9 Transaminitis R74.01 Bilirubinemia E80.6 Aspiration pneumonia J69.0 Pulmonary edema J81.1 COPD with emphysema J43.9
[2024-01-23] MEDS: dexMEDEtomidine 200 MCG/50 ML BAG IV SCH (08:15)
[2024-01-23] MEDS: FUROSEMIDE 40 MG/4 ML VIAL IV ONE (08:15)
[2024-01-23] MEDS: POTASSIUM CHLORIDE / WTR 20 MEQ/100 ML PLCT IV SCH (08:16)
[2024-01-23] MEDS: MAGNESIUM SULFATE / D5W 1 GM/100 ML BAG IV SCH (08:16)
[2024-01-23 12:09] LABS: Hematocrit (blood only) 33.7 % (42.0-52.0); Hemoglobin 11.9 g/dl (14.0-18.0)
--- NOTE | 2024-01-23 13:01 | Electrocardiogram Report ---
Test Reason : Blood Pressure : */* mmHG Vent. Rate : 143 BPM Atrial Rate : 150 BPM P-R Int : * ms QRS Dur : 92 ms QT Int : 326 ms P-R-T Axes : * 2 117 degrees QTcB Int : 503 ms Poor data quality, interpretation may be adversely affected Atrial fibrillation with rapid ventricular response Premature ventricular complexes Moderate voltage criteria for LVH, may be normal variant Inferior infarct , age undetermined Cannot rule out Anteroseptal infarct (cited on or before 20-Jan-2024) T wave abnormality, consider lateral ischemia Abnormal ECG When compared with ECG of 21-Jan-2024 05:53, Atrial fibrillation has replaced Sinus rhythm Vent. rate has increased by 56 bpm Serial changes of Anteroseptal infarct Present Confirmed by Venkat Billingsley ([id number]) on 01/23/2024 1:01:13 PM Referred By: REFERRED SELF Confirmed By: Venkat Billingsley
--- NOTE | 2024-01-23 13:02 | Electrocardiogram Report ---
Test Reason : Blood Pressure : */* mmHG Vent. Rate : 131 BPM Atrial Rate : 107 BPM P-R Int : * ms QRS Dur : 90 ms QT Int : 284 ms P-R-T Axes : * -7 104 degrees QTcB Int : 419 ms Poor data quality, interpretation may be adversely affected Atrial fibrillation with rapid ventricular response Premature ventricular complexes Moderate voltage criteria for LVH, may be normal variant Inferior infarct , age undetermined Cannot rule out Anteroseptal infarct Abnormal ECG When compared with ECG of 21-Jan-2024 05:53, No significant change Confirmed by Venkat Billingsley ([id number]) on 01/23/2024 1:01:58 PM Referred By: REFERRED SELF Confirmed By: Venkat Billingsley
[2024-01-23] MEDS: SODIUM CHLOR 7% 4 ML NEB NEB SCH (15:24)
[2024-01-23] MEDS ORDERED: Nursing to Pharmacy Communication SCH (15:30)
--- NOTE | 2024-01-23 17:58 | Hospitalist Progress Note ---
Date of Service January 23, 2024 Assessment & Plan (1) Non-ischemic cardiomyopathy: Plan: Elevated troponin/atrial flutter with RVR/history of paroxysmal atrial fibrillation and A-fib with RVR/hypertension/nonischemic cardiomyopathy- cardiopulmonary resuscitation with cpr for decompensated cardiogenic shock transfer to icu for ventilation, amiodarone gtt restarted 01/21 for possible seizure Keppra given but not continued elevated lft consistent with shock liver fever with concern for aspiration pneumonia now on unasyn has required pressors with cardiogenic shock now on dobutamine Extubated 915 on BiPAP for respiratory support CT head without acute changes heparin gtt now restarted with afib/flutter unclear if elevated troponin was nstemi or demand ischemia, now after cpr will be difficult to tell (2) Respiratory failure: Plan: required intubation and ventilation Now extubated requiring BiPAP for support on CT chest likely aspiration , on unasyn Has not had speech evaluation and began eating oral food yet (3) History of alcohol abuse: Plan: unclear of last drink, did get bananna bag, and is on thiamine also tobacco abuse Plan outlook guarded Admission and Anticipated Discharge Date Admission Date: January 20, 2024 Subjective pt was extubated 01/22 he was weak but followed commands did have some respiratory distress and tachycardia with family at bedside Physical Exam Physical Exam: Patient followed commands he was wearing BiPAP during my exam Coarse breath sounds with poor air movement in bilateral lower lobes Tachycardia without systolic murmur Abdomen was NABS and soft Results & Data Results & Data Vital Signs (Past 12 Hours) Vital Signs Temp Pulse Pulse Resp Pulse Ox Pulse Ox O2 Del Method 01/23/24 17:00 100.2 F H 89 20 98 01/23/24 16:03 100.2 F H 98 H 30 H 96 01/23/24 16:00 98 H 01/23/24 16:00 92 H 01/23/24 15:30 99.5 F 112 H 33 H 97 01/23/24 15:30 116 H 16 95 BiPAP 01/23/24 15:25 110 H 22 96 01/23/24 15:06 99.1 F 95 H 21 87 L 01/23/24 14:30 98.8 F 91 H 25 H 91 01/23/24 14:06 98.6 F 85 24 91 01/23/24 13:21 98.4 F 80 27 H 99 09/15/24 12:45 98.2 F 109 H 14 95 01/23/24 12:06 98.4 F 117 H 16 97 01/23/24 12:00 117 H 01/23/24 11:30 98.8 F 103 H 19 99 01/23/24 11:12 99.1 F 115 H 16 100 01/23/24 11:12 105 H 14 95 01/23/24 11:00 98 01/23/24 10:30 99.7 F H 116 H 17 99 01/23/24 09:27 122 H 22 96 01/23/24 09:18 100.8 F H 115 H 17 96 BiPAP 01/23/24 09:05 116 H 14 96 01/23/24 08:30 101.5 F H 128 H 15 96 01/23/24 08:00 105 H 01/23/24 08:00 01/23/24 08:00 113 H 01/23/24 08:00 Mechanical Vent 01/23/24 07:25 113 H 21 95 01/23/24 07:06 100.8 F H 106 H 15 93 Mechanical Vent 01/23/24 06:03 99.7 F H 120 H 15 92 Mechanical Vent O2 Del Method FiO2 01/23/24 17:00 01/23/24 16:03 01/23/24 16:00 01/23/24 16:00 01/23/24 15:30 01/23/24 15:30 40 01/23/24 15:25 40 01/23/24 15:06 01/23/24 14:30 01/23/24 14:06 01/23/24 13:21 01/23/24 12:45 01/23/24 12:06 01/23/24 12:00 01/23/24 11:30 01/23/24 11:12 01/23/24 11:12 35 01/23/24 11:00 BiPAP 01/23/24 10:30 01/23/24 09:27 35 01/23/24 09:18 35 01/23/24 09:05 35 01/23/24 08:30 01/23/24 08:00 01/23/24 08:00 35 01/23/24 08:00 01/23/24 08:00 35 01/23/24 07:25 35 01/23/24 07:06 35 01/23/24 06:03 35 Laboratory Results Reviewed CBC reviewed chemistry PG Care Time/CCT Total # of Minutes Spent Total Time Spent with Patient: Total time spent is greater than 50% in coordination of care (as documented) at patient's floor/unit and/or counseling patient: Coding Level of Care Code 34337 SUB INP/OBS CARE 3/50MIN Diagnoses Non-ischemic cardiomyopathy I42.8 Respiratory failure J96.90 History of alcohol abuse F10.11
[2024-01-23] MEDS: FUROSEMIDE INJ 20 MG/2 ML VIAL IV ONE (22:02)
[2024-01-23] MEDS: POTASSIUM CHLORIDE / WTR 20 MEQ/100 ML PLCT IV ONE (22:02)
[2024-01-23 22:18] LABS: ANTI-Xa, UFH(UnfractionatedHep 0.23 IU/ml (0.3-0.7)
[2024-01-24 05:46] LABS: Basophils # (auto) 0.02 K/uL (0.00-0.20); Basophils % (auto) 0.2 %; Hemoglobin 12.2 g/dl (14.0-18.0); Immature Granulocytes # (auto) 0.04 K/uL (0.01-0.20); Immature Granulocytes % (auto) 0.5 %; Lymphocytes # (auto) 0.64 K/uL (1.20-3.40); Mean Corpuscular Hemoglobin 35.2 pg (25.0-34.0); Mean Corpuscular Hgb Conc 35.9 g/dL (32.0-36.0); Mean Platelet Volume 11.1 fL (9.4-12.4); Monocytes # (auto) 0.72 K/uL (0.11-0.59); Neutrophils # (auto) 6.59 K/uL (1.40-6.50); Neutrophils % (auto) 82.3 %; Platelet Count 82 K/uL (130-400); RDW Coefficient of Variation 13.1 % (11.5-14.5); RDW Standard Deviation 47.3 fL (36.4-46.3); Red Blood Count 3.47 M/uL (4.70-6.10); White Blood Count 8.01 K/ul (4.8-10.8)
[2024-01-24 05:58] LABS: BUN Creatinine Ratio 16.7 (10-20); Calcium 7.8 mg/dl (8.6-10.3); Creatinine Clr Calc Pharmacy 120.7 ml/min; Est GFR (African American) 128.5 ml/min; Est GFR (Non-African American) 110.8 ml/min; Magnesium 1.7 mg/dl (1.7-2.4); Phosphorus 3.6 mg/dl (2.5-4.9); Potassium 3.9 mmol/L (3.5-5.1)
[2024-01-24 06:04] LABS: ANTI-Xa, UFH(UnfractionatedHep 0.28 IU/ml (0.3-0.7)
--- NOTE | 2024-01-24 07:24 | Critical Care Consultation ---
Date of Consultation January 24, 2024 History of Present Illness Attending Physician: Anjum Garcia MD Allergies Allergy/AdvReac Type Severity Reaction Status Date / Time No Known Allergies Allergy Unverified 08/10/23 15:40 Home Medications Medication Instructions Recorded Confirmed Type rivaroxaban 20 mg tablet (Xarelto) 20 mg PO DAILY 90 days #90 tabs 01/19/23 08/10/23 Rx furosemide 20 mg tablet (Lasix) 20 mg PO BID #180 tabs 01/22/23 08/10/23 Rx carvedilol 25 mg tablet 25 mg PO BID #180 tabs 02/02/23 08/10/23 Rx sacubitril 24 mg-valsartan 26 mg 1 tab PO BID #60 tabs 07/02/23 08/10/23 Rx tablet (Entresto) azelastine 137 mcg (0.1 %) nasal 1 spray intranasal BID PRN 08/10/23 08/10/23 History spray Patient History Medical History Elevated troponin Acute respiratory failure with hypoxia Hypertensive emergency Elevated troponin Micturition syncope Surgical History No pertinent past surgical history Family History Mother Heart disease Father Coronary heart disease H/O aortic valve replacement Brother Coronary heart disease Social History Smoking Status: Current every day smoker Tobacco Type: Cigarettes Cigarettes Per Day: 20; Second Hand Exposure: No; Do You Dip or Chew Tobacco: No; Preferred Language: Divehi Communication Ability: Unable Bun Panner Required: No Beliefs That Will Affect Care: None Current Living Situation: Other Current Living Situation Comment: Intubated and sedated Feels Safe at Home: Yes Assistive Devices: None Results & Data Results & Data Vital Signs (Past 12 Hours) Vital Signs Temp Pulse Pulse Resp BP Pulse Ox O2 Del Method 01/24/24 06:33 37.5 C 80 21 95 01/24/24 06:30 104/69 01/24/24 06:18 37.4 C 78 24 98 09/16/24 06:00 98/69 L 01/24/24 05:45 37.4 C 77 21 97 01/24/24 05:30 117/75 01/24/24 05:30 117/75 01/24/24 05:30 117/75 01/24/24 05:30 37.4 C 85 22 96 01/24/24 05:12 37.5 C 78 24 96 01/24/24 05:00 96/69 L 01/24/24 04:48 37.5 C 82 24 98 01/24/24 04:42 37.5 C 80 26 H 98 01/24/24 04:00 104/77 01/24/24 04:00 104/77 01/24/24 04:00 37.7 C H 79 29 H 95 01/24/24 04:00 75 126/67 01/24/24 03:45 37.8 C H 82 30 H 96 01/24/24 03:30 114/74 01/24/24 03:24 37.8 C H 87 29 H 90 01/24/24 03:12 37.9 C H 89 38 H 92 01/24/24 03:00 105/68 01/24/24 02:56 86 32 H 97 01/24/24 02:54 37.7 C H 87 32 H 93 01/24/24 02:30 98/70 L 01/24/24 02:30 98/70 L 01/24/24 02:18 37.7 C H 88 31 H 98 01/24/24 02:00 102/72 01/24/24 02:00 37.7 C H 90 26 H 97 01/24/24 01:39 37.7 C H 89 31 H 96 01/24/24 01:30 121/82 01/24/24 01:30 121/82 01/24/24 01:03 37.7 C H 96 H 26 H 93 01/24/24 01:00 155/93 H 01/24/24 00:48 37.7 C H 98 H 33 H 92 01/24/24 00:30 111/70 01/24/24 00:30 111/70 01/24/24 00:01 117/68 01/24/24 00:00 92 H 99/47 L 01/24/24 00:00 93 H 01/23/24 23:57 37.7 C H 93 H 29 H 96 01/23/24 23:30 161/129 H 01/23/24 23:30 37.7 C H 101 H 36 H 90 01/23/24 23:17 93 H 28 H 90 01/23/24 23:00 102/88 01/23/24 23:00 37.7 C H 92 H 24 91 01/23/24 22:33 37.7 C H 89 21 88 L 01/23/24 22:30 127/89 01/23/24 22:30 127/89 01/23/24 22:12 37.7 C H 90 22 93 01/23/24 22:03 97/63 L 01/23/24 21:54 37.8 C H 87 21 95 01/23/24 21:39 37.8 C H 85 17 93 01/23/24 21:30 106/74 01/23/24 21:29 112 H 29 H 91 01/23/24 21:29 112 H 29 H 91 BiPAP 01/23/24 21:12 37.8 C H 79 24 89 L 01/23/24 21:00 37.8 C H 82 27 H 92 01/23/24 21:00 102/65 01/23/24 20:42 37.7 C H 84 18 87 L 01/23/24 20:24 105/68 01/23/24 20:15 37.7 C H 90 24 91 01/23/24 20:00 94 H 106/51 L 01/23/24 20:00 BiPAP 01/23/24 20:00 37.6 C H 81 13 91 01/23/24 19:30 37.6 C H 81 22 97 FiO2 01/24/24 06:33 01/24/24 06:30 01/24/24 06:18 01/24/24 06:00 01/24/24 05:45 01/24/24 05:30 01/24/24 05:30 01/24/24 05:30 01/24/24 05:30 01/24/24 05:12 01/24/24 05:00 01/24/24 04:48 01/24/24 04:42 01/24/24 04:00 01/24/24 04:00 01/24/24 04:00 01/24/24 04:00 01/24/24 03:45 01/24/24 03:30 01/24/24 03:24 01/24/24 03:12 01/24/24 03:00 01/24/24 02:56 50 01/24/24 02:54 01/24/24 02:30 01/24/24 02:30 01/24/24 02:18 01/24/24 02:00 01/24/24 02:00 01/24/24 01:39 01/24/24 01:30 01/24/24 01:30 01/24/24 01:03 01/24/24 01:00 01/24/24 00:48 01/24/24 00:30 01/24/24 00:30 01/24/24 00:01 01/24/24 00:00 01/24/24 00:00 01/23/24 23:57 01/23/24 23:30 01/23/24 23:30 01/23/24 23:17 60 01/23/24 23:00 01/23/24 23:00 01/23/24 22:33 01/23/24 22:30 01/23/24 22:30 01/23/24 22:12 01/23/24 22:03 01/23/24 21:54 01/23/24 21:39 01/23/24 21:30 01/23/24 21:29 40 01/23/24 21:29 50 01/23/24 21:12 01/23/24 21:00 01/23/24 21:00 01/23/24 20:42 01/23/24 20:24 01/23/24 20:15 01/23/24 20:00 01/23/24 20:00 45 01/23/24 20:00 01/23/24 19:30
--- NOTE | 2024-01-24 07:27 | Critical Care Progress Note ---
Date of Service January 24, 2024 Assessment & Plan (1) Aspiration pneumonia: (2) Cardiogenic shock: (3) Respiratory failure: (4) COPD with emphysema: (5) Bilirubinemia: (6) Transaminitis: (7) Atrial flutter with rapid ventricular response: (8) Acute on chronic HFrEF (heart failure with reduced ejection fraction): (9) Non-ischemic cardiomyopathy: Plan Plan Reason Critically Ill: 58-year-old male presented to hospital with complaints of shortness of breath. Sent to ICU for cardiac arrest, intubated Past medical history: Systolic CHF, A-fib on Xarelto, nonischemic cardiomyopathy, hypertension Neuro [facility] ICU: negative, patient not delirious Propofol and fentanyl for sedation, halted --New onset seizure on the day of presentation to the ER No recurrence Etiology is not clear Got a loading dose of Keppra on 01/20/2024, discontinued afterwards TSH within normal limit CT of the head 01/20/2024 negative for any intracranial findings. EEG 01/22/2024: Mild abnormal study diffuse slowing, no epileptic activity noted Cardiac -- Cardiac arrest with cardiogenic shock Etiology is likely cardiac/systolic CHF inotropic support w/ dobutamine discontinued - no pedal edema, crackles only at bases of post lungs - furosemide, 40 mg, IV, PRN --A-fib with RVR/Hypertension Rate controlled on home meds; amiodarone bolus in the ED --> restarted 01/22/2024 Got bolus of 300 mcg bolus 01/21/2024 followed by 150 mcg x 2 on 01/22/2024 on amiodarone drip currently, 0.5 mg/min start on rate control/anti-hypertensive: metoprolol, 4 mg, IV, q4hrs clonidine patch, 0.2 mg, TD, 24-hr hydralazine, 10 mg, IV, q4hr, PRN (for SBP > 125 or DBP > 75) --Elevated troponins #resolved Likely type II MA Trended down, 165 <-- 239, then stopped following --Systolic CHF Decrease in EF from 40% to 25% 2D echo 01/20/2024: EF 20-25%, normal RV, mildly reduced RV function, PASP 40-45 mmHg, mild MR Respiratory CT chest 01/20/2024 personally reviewed: Centrilobular emphysema appreciated bilaterally Interlobular thickening appreciated bilaterally Consolidative process appreciated bilateral lower lobes Small bilateral pleural effusion No significant mediastinal lymphadenopathy -- VDRF For airway protection secondary to cardiac arrest Continue with ventilatory support Keep RASS -1 Daily sedation holidays and SBT's Chlorhexidine mouthwash --Hemoptysis --> resolved Seems to be coming from pulmonary edema --Hypoxic respiratory failure Likely secondary to pulmonary edema with possible aspiration Diuresis as tolerated --> furosemide; monitor I's and O's Continue with antibiotic, Unasyn, 3000 mg, IV, q6hrs for total of 5 days -- COPD with emphysema Nebulized treatment while in the hospital, budesonide, 0.5 mg, Neb, BIDR GI -- Transaminitis with hyperbilirubinemia --> improving Likely from hypotension Continue to trend w/ CMP (every other day) - continue pantoprazole for stress ulcer prophylaxis, 40 mg, IV, daily - maintain NPO while on BiPap or CPAP RENAL/LYTES --S/p NAHUN Monitor BUN/creatinine Avoid nephrotoxic medications Strict ins and outs --Hyponatremia Mild, 128 Serum osmolality 271 TSH within normal limit -- S/p HAGMA #resolved Delta-delta: Pure anion, Likely sec to lactic acidosis Monitor -- Continue with Burk catheter ENDO -- ICU hyperglycemia protocol HEME/ONC -- Hemoglobin trending down No clear source of bleeding Monitor H&H -- Thrombocytopenia Continue to monitor ID -- Aspiration pneumonia Continue with antibiotics, Unasyn, 3000 mg, IV, q6hrs Sputum culture growing light normal shaista Prophylaxis VTE: Xarelto at home, heparin drip on hold GI: Pantoprazole Lines: Right femoral TLC and arterial, peripheral lines x 2 Diet: Trophic tube feeds Plan: In/out: - 0.3 L, urine output 2080 40 mg of Lasix, IV, PRN, depending on volume status Magnesium and potassium being replaced Patient's Hgb stable, he is - 0.3 L over last 24 hrs Heparin drip on hold in order to remove lines later today (removing arterial line, central line) CBC, AM, daily Continue with amiodarone drip Trial of extubation to BiPAP 12/ today, currently on CPAP 10 cm H2O Patient will likely need to go to rehab as he has significant generalized weakness Admission and Anticipated Discharge Date Admission Date: January 20, 2024 Supervising Physician Co-Signing Physician Notes Patient seen and examined. EMR reviewed. Discussed with off going pulmonol ogist as well as with overnight critical care ZULEYMA and ICU resident. Images independently reviewed as well as lab studies reviewed. Patient is improved and is tolerating liberation from mechanical ventilation but continues to require noninvasive positive pressure ventilation. He may have some fluid overload. He does not appear overtly bronchospastic. Removal of BiPAP results in the patient becoming tachypneic, desaturating, and complaining of increasing dyspnea. Will continue to try and optimize heart failure with blood pressure control and continue diuresis. Hopefully will see a response to clonidine which may offer some additional anxiolysis. Low-dose benzodiazepines may be considered if needed. Will continue to try and target diastolic blood pressure around 75 with systolic blood pressure around 130 and heart rate in the 60s. Unable to tolerate p.o. currently so we will use IV metoprolol and IV hydralazine pushes as needed. Patient will require PT and OT. Hopefully we can liberate from the noninvasive positive pressure ventilation over the next 12 to 24 hours. Continue n.p.o. until respiratory status is stabilized. LFTs improved. No need to trend additionally at this point in time. The patient remains critically ill at this point time with significant possibility of clinical deterioration and/or . A total of 48 minutes of critical care time was spent evaluation management coronation care of this patient including discussion on multidisciplinary rounds. Subjective Patient AAO x 4 this morning, able to follow commands. Patient was was extubated on 01/22 and is currently alternating between BiPap and CPAP. Patient feeling subjectively better this morning compared to how he felt on admission. Has no complaints of pain, no CP or palpitations, no SOB on current ventilator settings, no N/V/AP, pt does endorse diarrhea. Review of Systems Constitutional: no fever, no chills and no sweats Respiratory: no cough and no dyspnea Cardiovascular: no chest pain and no palpitations Gastrointestinal: + diarrhea/loose stools; no abdominal pa in, no nausea, no vomiting and no constipation Genitourinary: no urinary frequency Neurologic: no tingling, no numbness and no headache(s) Physical Exam Constitutional: well developed, well nourished, cooperative and + mechanically ventilated; no acute distress Respiratory: normal respiratory effort and able to speak in complete sentences Cardiovascular: RRR, no murmur, no edema Gastrointestinal (Abdomen): normal bowel sounds, soft, nontender, no hepatosplenomegaly Psychiatric: A+Ox3, euthymic affect Results & Data Results & Data Vital Signs (Past 12 Hours) Vital Signs Temp Pulse Pulse Resp BP Pulse Ox O2 Del Method 01/24/24 06:33 37.5 C 80 21 95 01/24/24 06:30 104/69 01/24/24 06:18 37.4 C 78 24 98 01/24/24 06:00 98/69 L 01/24/24 05:45 37.4 C 77 21 97 01/24/24 05:30 117/75 01/24/24 05:30 117/75 01/24/24 05:30 117/75 01/24/24 05:30 37.4 C 85 22 96 01/24/24 05:12 37.5 C 78 24 96 01/24/24 05:00 96/69 L 01/24/24 04:48 37.5 C 82 24 98 01/24/24 04:42 37.5 C 80 26 H 98 01/24/24 04:00 104/77 01/24/24 04:00 104/77 01/24/24 04:00 37.7 C H 79 29 H 95 01/24/24 04:00 75 126/67 01/24/24 03:45 37.8 C H 82 30 H 96 01/24/24 03:30 114/74 01/24/24 03:24 37.8 C H 87 29 H 90 01/24/24 03:12 37.9 C H 89 38 H 92 01/24/24 03:00 105/68 01/24/24 02:56 86 32 H 97 01/24/24 02:54 37.7 C H 87 32 H 93 01/24/24 02:30 98/70 L 01/24/24 02:30 98/70 L 01/24/24 02:18 37.7 C H 88 31 H 98 01/24/24 02:00 102/72 01/24/24 02:00 37.7 C H 90 26 H 97 01/24/24 01:39 37.7 C H 89 31 H 96 01/24/24 01:30 121/82 01/24/24 01:30 121/82 09/16/24 01:03 37.7 C H 96 H 26 H 93 01/24/24 01:00 155/93 H 01/24/24 00:48 37.7 C H 98 H 33 H 92 01/24/24 00:30 111/70 01/24/24 00:30 111/70 01/24/24 00:01 117/68 01/24/24 00:00 92 H 99/47 L 01/24/24 00:00 93 H 01/23/24 23:57 37.7 C H 93 H 29 H 96 01/23/24 23:30 161/129 H 01/23/24 23:30 37.7 C H 101 H 36 H 90 01/23/24 23:17 93 H 28 H 90 01/23/24 23:00 102/88 01/23/24 23:00 37.7 C H 92 H 24 91 01/23/24 22:33 37.7 C H 89 21 88 L 01/23/24 22:30 127/89 01/23/24 22:30 127/89 01/23/24 22:12 37.7 C H 90 22 93 01/23/24 22:03 97/63 L 01/23/24 21:54 37.8 C H 87 21 95 01/23/24 21:39 37.8 C H 85 17 93 01/23/24 21:30 106/74 01/23/24 21:29 112 H 29 H 91 01/23/24 21:29 112 H 29 H 91 BiPAP 01/23/24 21:12 37.8 C H 79 24 89 L 01/23/24 21:00 37.8 C H 82 27 H 92 01/23/24 21:00 102/65 01/23/24 20:42 37.7 C H 84 18 87 L 01/23/24 20:24 105/68 01/23/24 20:15 37.7 C H 90 24 91 01/23/24 20:00 94 H 106/51 L 01/23/24 20:00 BiPAP 01/23/24 20:00 37.6 C H 81 13 91 01/23/24 19:30 37.6 C H 81 22 97 FiO2 01/24/24 06:33 01/24/24 06:30 01/24/24 06:18 01/24/24 06:00 01/24/24 05:45 01/24/24 05:30 01/24/24 05:30 01/24/24 05:30 01/24/24 05:30 01/24/24 05:12 01/24/24 05:00 01/24/24 04:48 01/24/24 04:42 01/24/24 04:00 01/24/24 04:00 01/24/24 04:00 01/24/24 04:00 01/24/24 03:45 01/24/24 03:30 01/24/24 03:24 01/24/24 03:12 01/24/24 03:00 01/24/24 02:56 50 01/24/24 02:54 01/24/24 02:30 01/24/24 02:30 01/24/24 02:18 01/24/24 02:00 01/24/24 02:00 01/24/24 01:39 01/24/24 01:30 01/24/24 01:30 01/24/24 01:03 01/24/24 01:00 01/24/24 00:48 01/24/24 00:30 01/24/24 00:30 01/24/24 00:01 01/24/24 00:00 01/24/24 00:00 01/23/24 23:57 01/23/24 23:30 01/23/24 23:30 01/23/24 23:17 60 01/23/24 23:00 01/23/24 23:00 01/23/24 22:33 01/23/24 22:30 01/23/24 22:30 01/23/24 22:12 01/23/24 22:03 01/23/24 21:54 01/23/24 21:39 01/23/24 21:30 01/23/24 21:29 40 01/23/24 21:29 50 01/23/24 21:12 01/23/24 21:00 01/23/24 21:00 01/23/24 20:42 01/23/24 20:24 01/23/24 20:15 01/23/24 20:00 01/23/24 20:00 45 01/23/24 20:00 01/23/24 19:30
[2024-01-24] MEDS: MAGNESIUM SULFATE / D5W 1 GM/100 ML BAG IV SCH (08:14)
[2024-01-24] MEDS: POTASSIUM CHLORIDE / WTR 20 MEQ/100 ML PLCT IV SCH (08:14)
[2024-01-24] MEDS: FUROSEMIDE 40 MG/4 ML VIAL IV SCH (09:55)
[2024-01-24] MEDS ORDERED: hydrALAZINE HCL 20 MG/ML VIAL IV PRN (11:21)
[2024-01-24] MEDS: METOPROLOL TARTRATE 1 MG/ML VIAL IV SCH (12:03)
--- NOTE | 2024-01-24 12:28 | Billing Data ---
Date of Service January 24, 2024 Coding Level of Care Code 50337 CRITICAL CARE
[2024-01-24 13:38] LABS: ANTI-Xa, UFH(UnfractionatedHep < 0.10 IU/ml (0.3-0.7)
[2024-01-24 15:38] LABS: iSTAT Art Bld Gas pCO2 Correct 51 mmHg (35-46); iSTAT Art Bld Gas pH Corrected 7.319 (7.35-7.45); iSTAT Arterial Blood Gas HCO3 26 meg/L (19-24); iSTAT Arterial Blood Gas pCO2 48 mmHg (35-46); iSTAT Arterial Blood Gas pH 7.34 (7.35-7.45); iSTAT Arterial Blood Gas pO2 51 mmHg (80-95); iSTAT Arterial Blood Gas pO2 C 55; iSTAT Carbon Dioxide 27 mmol/L (24-31); iSTAT FiO2 100 %; iSTAT Hematocrit 42 % (42-52); iSTAT Hemoglobin 14.3 g/dl (14.0-18.0); iSTAT Potassium 4.6 mmol/L (3.3-5.0); iSTAT Site R Radial; iSTAT Sodium 126 mmol/L (135-144)
--- NOTE | 2024-01-24 16:15 | Hospitalist Progress Note ---
Date of Service January 24, 2024 Assessment & Plan (1) Non-ischemic cardiomyopathy: Plan: cardiopulmonary resuscitation with cpr for decompensated cardiogenic shock Elevated troponin/atrial flutter with RVR/history of paroxysmal atrial fibrillation and A-fib with RVR/hypertension/nonischemic cardiomyopathy- amiodarone gtt restarted 01/21 for possible seizure Keppra given but not continued elevated lft consistent with shock liver fever with concern for aspiration pneumonia now on unasyn has required pressors with cardiogenic shock, had been on dobutamine compensated 01/23 possible re intubation if fails BiPap CT head without acute changes heparin gtt now restarted with afib/flutter unclear if elevated troponin was nstemi or demand ischemia, now after cpr will be difficult to tell (2) Respiratory failure: Plan: required intubation and ventilation on CT chest likely aspiration , on unasyn Has not had speech evaluation and began eating oral food yet (3) History of alcohol abuse: Plan: unclear of last drink, did get bananna bag, and is on thiamine also tobacco abuse Plan outlook guarded Admission and Anticipated Discharge Date Admission Date: January 20, 2024 Physical Exam Physical Exam: Patient followed commands he was wearing BiPAP during my exam Coarse breath sounds with poor air movement in bilateral lower lobes Tachycardia without systolic murmur Abdomen was NABS and soft Results & Data Results & Data Vital Signs (Past 12 Hours) Vital Signs Temp Pulse Pulse Resp BP Pulse Ox Pulse Ox 01/24/24 15:46 145/85 H 01/24/24 15:46 145/85 H 01/24/24 15:42 135/92 01/24/24 15:33 100.8 F H 91 H 38 H 92 01/24/24 15:30 137/86 01/24/24 15:30 137/86 01/24/24 15:24 100.8 F H 92 H 41 H 89 L 01/24/24 15:03 100.8 F H 88 37 H 92 01/24/24 15:00 133/97 01/24/24 15:00 133/97 01/24/24 15:00 133/97 01/24/24 14:59 34 H 89 L 01/24/24 14:51 100.6 F H 89 36 H 01/24/24 14:30 145/95 H 01/24/24 14:12 100.2 F H 92 H 36 H 92 01/24/24 13:36 100.0 F H 91 H 41 H 87 L 01/24/24 13:30 129/85 01/24/24 13:24 100.0 F H 86 31 H 91 01/24/24 13:06 99.9 F H 84 32 H 93 01/24/24 13:00 114/77 01/24/24 12:57 99.9 F H 86 33 H 89 L 01/24/24 12:31 107/71 01/24/24 12:31 107/71 01/24/24 12:18 99.9 F H 85 33 H 88 L 01/24/24 12:18 85 142/78 H 01/24/24 12:03 100 H 146/99 H 01/24/24 12:00 102 H 180/121 H 01/24/24 12:00 146/99 H 01/24/24 12:00 146/99 H 01/24/24 12:00 99.9 F H 102 H 39 H 89 L 01/24/24 11:54 176/91 H 01/24/24 11:54 176/91 H 01/24/24 11:54 176/91 H 01/24/24 11:54 176/91 H 01/24/24 11:48 99.7 F H 100 H 34 H 88 L 01/24/24 11:30 142/90 H 01/24/24 11:30 99.5 F 98 H 36 H 92 01/24/24 11:11 157/101 H 01/24/24 11:09 99.3 F 98 H 36 H 89 L 01/24/24 11:03 99.3 F 96 H 28 H 135/85 88 L 01/24/24 11:00 89 L 01/24/24 10:58 95 H 31 H 92 01/24/24 10:58 95 H 31 H 92 01/24/24 10:30 99.1 F 88 33 H 112/80 96 01/24/24 10:00 99.3 F 96 H 35 H 138/87 93 01/24/24 09:30 143/87 H 01/24/24 09:30 99.3 F 91 H 26 H 91 01/24/24 09:03 99.1 F 80 22 99 01/24/24 09:00 102/73 01/24/24 09:00 102/73 01/24/24 08:57 99.1 F 86 26 H 100 01/24/24 08:33 99.1 F 83 26 H 99 01/24/24 08:30 109/72 01/24/24 08:30 109/72 01/24/24 08:30 109/72 01/24/24 08:30 109/72 01/24/24 08:30 109/72 01/24/24 08:21 99.1 F 83 26 H 99 01/24/24 08:03 99.3 F 85 28 H 98 01/24/24 08:00 115/75 01/24/24 08:00 78 01/24/24 08:00 01/24/24 07:54 99.3 F 87 28 H 97 01/24/24 07:40 87 24 90 01/24/24 07:30 116/81 01/24/24 07:30 116/81 01/24/24 07:30 99.1 F 87 32 H 96 01/24/24 07:22 88 30 H 99 01/24/24 07:00 127/82 01/24/24 07:00 99.3 F 85 28 H 94 01/24/24 06:33 99.5 F 80 21 95 01/24/24 06:30 104/69 01/24/24 06:18 99.3 F 78 24 98 01/24/24 06:00 98/69 L 01/24/24 05:45 99.3 F 77 21 97 01/24/24 05:30 117/75 01/24/24 05:30 117/75 01/24/24 05:30 117/75 01/24/24 05:30 99.3 F 85 22 96 01/24/24 05:12 99.5 F 78 24 96 01/24/24 05:00 96/69 L 01/24/24 04:48 99.5 F 82 24 98 01/24/24 04:42 99.5 F 80 26 H 98 O2 Del Method O2 Del Method FiO2 01/24/24 15:46 01/24/24 15:46 01/24/24 15:42 01/24/24 15:33 01/24/24 15:30 01/24/24 15:30 01/24/24 15:24 01/24/24 15:03 01/24/24 15:00 01/24/24 15:00 01/24/24 15:00 01/24/24 14:59 CPAP 100 01/24/24 14:51 01/24/24 14:30 01/24/24 14:12 01/24/24 13:36 01/24/24 13:30 01/24/24 13:24 01/24/24 13:06 01/24/24 13:00 01/24/24 12:57 01/24/24 12:31 01/24/24 12:31 01/24/24 12:18 01/24/24 12:18 01/24/24 12:03 01/24/24 12:00 01/24/24 12:00 01/24/24 12:00 01/24/24 12:00 01/24/24 11:54 01/24/24 11:54 01/24/24 11:54 01/24/24 11:54 01/24/24 11:48 01/24/24 11:30 01/24/24 11:30 01/24/24 11:11 01/24/24 11:09 01/24/24 11:03 01/24/24 11:00 CPAP 01/24/24 10:58 BiPAP 55 01/24/24 10:58 55 01/24/24 10:30 01/24/24 10:00 01/24/24 09:30 01/24/24 09:30 01/24/24 09:03 01/24/24 09:00 01/24/24 09:00 01/24/24 08:57 01/24/24 08:33 01/24/24 08:30 01/24/24 08:30 01/24/24 08:30 01/24/24 08:30 01/24/24 08:30 01/24/24 08:21 01/24/24 08:03 01/24/24 08:00 01/24/24 08:00 01/24/24 08:00 BiPAP 45 01/24/24 07:54 01/24/24 07:40 50 01/24/24 07:30 01/24/24 07:30 01/24/24 07:30 01/24/24 07:22 BiPAP 50 01/24/24 07:00 01/24/24 07:00 01/24/24 06:33 01/24/24 06:30 01/24/24 06:18 01/24/24 06:00 01/24/24 05:45 01/24/24 05:30 01/24/24 05:30 01/24/24 05:30 01/24/24 05:30 01/24/24 05:12 01/24/24 05:00 01/24/24 04:48 01/24/24 04:42 PG Care Time/CCT Total # of Minutes Spent Total Time Spent with Patient: Total time spent is greater than 50% in coordination of care (as documented) at patient's floor/unit and/or counseling patient: Coding Level of Care Code 76246 SUB INP/OBS CARE 2/35MIN Diagnoses Non-ischemic cardiomyopathy I42.8 Respiratory failure J96.90 History of alcohol abuse F10.11
[2024-01-24 17:36] LABS: iSTAT Allen Test Pass; iSTAT Art Bld Gas pCO2 Correct 43 mmHg (35-46); iSTAT Art Bld Gas pH Corrected 7.365 (7.35-7.45); iSTAT Arterial Blood Gas HCO3 24 meg/L (19-24); iSTAT Arterial Blood Gas pCO2 41 mmHg (35-46); iSTAT Arterial Blood Gas pH 7.38 (7.35-7.45); iSTAT Arterial Blood Gas pO2 65 mmHg (80-95); iSTAT Arterial Blood Gas pO2 C 70; iSTAT Carbon Dioxide 26 mmol/L (24-31); iSTAT FiO2 100 %; iSTAT Hematocrit 40 % (42-52); iSTAT Hemoglobin 13.6 g/dl (14.0-18.0); iSTAT Site R Radial; iSTAT Sodium 127 mmol/L (135-144)
[2024-01-24] MEDS: CHECK CLONIDINE PATCH PLACEMENT SCH (17:48)
[2024-01-24] MEDS: FUROSEMIDE 40 MG/4 ML VIAL IV ONE (18:58)
[2024-01-24] MEDS: ALBUTEROL 0.083% NEBU SOLN 3 ML VIAL NEB STA (19:24)
[2024-01-24 20:25] LABS: ANTI-Xa, UFH(UnfractionatedHep 0.29 IU/ml (0.3-0.7)
[2024-01-24] MEDS: ACETAMINOPHEN 1,000 MG/100 ML VIAL IV STA (22:11)
[2024-01-25 04:05] LABS: Basophils # (auto) 0.02 K/uL (0.00-0.20); Basophils % (auto) 0.2 %; Eosinophils # (auto) 0.01 K/uL (0.00-0.50); Eosinophils % (auto) 0.1 %; Hematocrit (blood only) 37.3 % (42.0-52.0); Immature Granulocytes # (auto) 0.05 K/uL (0.01-0.20); Immature Granulocytes % (auto) 0.6 %; Lymphocytes # (auto) 0.74 K/uL (1.20-3.40); Mean Corpuscular Hemoglobin 34.8 pg (25.0-34.0); Mean Corpuscular Hgb Conc 34.9 g/dL (32.0-36.0); Mean Corpuscular Volume 99.7 fL (80.0-100.0); Mean Platelet Volume 10.8 fL (9.4-12.4); Monocytes # (auto) 0.79 K/uL (0.11-0.59); Monocytes % (auto) 9.6 %; Neutrophils # (auto) 6.64 K/uL (1.40-6.50); Neutrophils % (auto) 80.5 %; Platelet Count 104 K/uL (130-400); RDW Coefficient of Variation 13.6 % (11.5-14.5); Red Blood Count 3.74 M/uL (4.70-6.10); White Blood Count 8.25 K/ul (4.8-10.8)
[2024-01-25 04:12] LABS: BUN Creatinine Ratio 21.1 (10-20); Calcium 7.9 mg/dl (8.6-10.3); Creatinine Clr Calc Pharmacy 95.6 ml/min; Est GFR (African American) 116.6 ml/min; Est GFR (Non-African American) 100.6 ml/min; Magnesium 2.1 mg/dl (1.7-2.4); Potassium 3.6 mmol/L (3.5-5.1)
[2024-01-25] MEDS: POTASSIUM CHLORIDE / WTR 10 MEQ/100 ML PLCT IV SCH ×2 (05:58→20:12)
--- NOTE | 2024-01-25 07:17 | Critical Care Progress Note ---
Date of Service January 25, 2024 Assessment & Plan (1) Aspiration pneumonia: (2) Cardiogenic shock: (3) Respiratory failure: (4) COPD with emphysema: (5) Bilirubinemia: (6) Transaminitis: (7) Atrial flutter with rapid ventricular response: (8) Acute on chronic HFrEF (heart failure with reduced ejection fraction): (9) Non-ischemic cardiomyopathy: Plan Plan Reason Critically Ill: 58-year-old male presented to hospital with complaints of shortness of breath. Sent to ICU for cardiac arrest, intubated Past medical history: Systolic CHF, A-fib on Xarelto, nonischemic cardiomyopathy, hypertension Neuro [facility] ICU: negative, patient not delirious; AAO x 4 #Propofol and fentanyl for sedation, halted --New onset seizure on the day of presentation to the ER No recurrence Etiology is not clear Got a loading dose of Keppra on 01/20/2024, discontinued afterwards TSH within normal limit CT of the head 01/20/2024 negative for any intracranial findings. EEG 01/22/2024: Mild abnormal study diffuse slowing, no epileptic activity noted Cardiac -- Cardiac arrest with cardiogenic shock Etiology is likely cardiac/systolic CHF inotropic support w/ dobutamine discontinued - no pedal edema, crackles only at bases of post lungs - furosemide, 40 mg, IV, BID --A-fib with RVR/Hypertension Rate controlled on home meds; amiodarone bolus in the ED --> restarted 01/22/2024 Got bolus of 300 mcg bolus 01/21/2024 followed by 150 mcg x 2 on 01/22/2024 on amiodarone drip currently, 0.5 mg/min --> stop start on rate control/anti-hypertensive: metoprolol, 4 mg, IV, q4hrs clonidine patch, 0.2 mg, TD, 24-hr hydralazine, 10 mg, IV, q4hr, PRN (for SBP > 125 or DBP > 75) --Elevated troponins #resolved Likely type II PR Trended down, 165 <-- 239, then stopped following --Systolic CHF Decrease in EF from 40% to 25% 2D echo 01/20/2024: EF 20-25%, normal RV, mildly reduced RV function, PASP 40-45 mmHg, mild MR Respiratory CT chest 01/20/2024 personally reviewed: Centrilobular emphysema appreciated bilaterally Interlobular thickening appreciated bilaterally Consolidative process appreciated bilateral lower lobes, Small bilateral pleural effusion, No significant mediastinal lymphadenopathy CXR, 01/24/24 Progressively worsened extensive right greater than left mixed interstitial and alveolar opacities - get repeat procalcitonin; get BNP -- VDRF For airway protection secondary to cardiac arrest Continue with ventilatory support Keep RASS-1; Daily sedation holidays and SBT's Chlorhexidine mouthwash --Hemoptysis --> resolved Seems to be coming from pulmonary edema --Hypoxic respiratory failure Likely secondary to pulmonary edema with possible aspiration Diuresis as tolerated --> furosemide; monitor I's and O's Continue with antibiotic, Unasyn, 3000 mg, IV, q6hrs for total of 5 days Progressive lessening of oxygen requirement as tolerated -- COPD with emphysema Nebulized treatment while in the hospital, budesonide, 0.5 mg, Neb, BIDR GI -- Transaminitis with hyperbilirubinemia --> improving Likely from hypotension/hypoperfusion/ischemia or 'shock liver' - continue pantoprazole for stress ulcer prophylaxis, 40 mg, IV, daily - maintain NPO while on BiPap or CPAP - Phos ordered, pending; will need enteral tube feedings if unsuccessfully weaned off of BiPAP/CPAP today RENAL/LYTES --S/p NAHUN Monitor BUN/creatinine Avoid nephrotoxic medications Strict ins and outs --Hyponatremia Mild, 132 <-- 128 Serum osmolality 271 TSH within normal limit -- S/p HAGMA #resolved Delta-delta: Pure anion, Likely sec to lactic acidosis Monitor -- Continue with Burk catheter ENDO -- ICU hyperglycemia protocol HEME/ONC -- Hemoglobin stabilized, trending up No clear source of bleeding Monitor H&H -- Thrombocytopenia -Plts, 104 <-- 82, improving Continue to monitor w/ CBC ID -- Aspiration pneumonia Sputum culture growing light normal shaista Blood Cx (01/22/24), negative after 48 hrs Continue with antibiotics, Unasyn, 3000 mg, IV, q6hrs for a total of 5 days Prophylaxis VTE: Xarelto at home, heparin drip in ICU GI: Pantoprazole Lines: peripheral lines x 3 (#Right femoral TLC and arterial removed) Diet: Trophic tube feeds Plan: In/out: - 0.2 L, urine output 2230 mL 40 mg of Lasix, IV, YASIR, BID (additional 40 mg, IV, Lasix given this morning) Magnesium, 2.1 and potassium, 3.6; replace as needed Patient's Hgb stable, he is - 0.2 L over last 24 hrs Heparin drip on for anticoagulation CBC, AM, daily Discontinue amiodarone drip, also on metoprolol tartrate, 5 mg, IV, q4hrs Trial of Hi-Flow O2, 60 L/min, 100% O2, w/ O2Sat falling to 82 w/in 30 min Placed back on NIV (A/CMV), 80% O2, PEEP 6.0 cm Patient will likely need to go to rehab as he has significant generalized weakness Admission and Anticipated Discharge Date Admission Date: January 20, 2024 Supervising Physician Co-Signing Physician Notes Patient seen and examined. EMR reviewed. Discussed on multidisciplinary rounds as well as with overnight critical care ZULEYMA and family practice resident. Agree with assessment plan as noted. The patient is developing worsening hypoxemic respiratory failure with diffuse pulmonary infiltrates more prominent on the right than the left. Suspect this represents pulmonary edema. He has not responded to aggressive diuretics. Will give an additional Lasix this morning. He did not really respond to that and is developing tachypnea and respiratory fatigue. He requested to be intubated. I discussed with the patient that if he is intubated I would recommend pursuing early tracheostomy. Risks and benefits were discussed with him and he is agreeable to both being intubated now and to undergoing tracheostomy. Please see separate procedure notes. Will also pursue nasoenteric access and initiate enteric feeding protocol. Will initiate case management for placement at long- term acute care facility. Anticipate postprocedural hypotension will resolved but will use Denzel-Synephrine for now. IV access is adequate. May consider central access if persistent pressor requirement. Discontinue clonidine. Will hold metoprolol for now but will likely restart oral once blood pressure issues have stabilized. Patient remains critically ill. A total of 75 minutes in critical care time exclusive of procedures was spent in evaluation management stabilization of this patient Subjective Patient AAO x 4 this morning, able to follow commands. Patient was was extubated on 01/22, required an increased from an FiO2 of 40% to 50% o/n last night while on BiPap. This morning a trial of Hi-Flow O2, 60 L/min, FiO2 100% is underway to help progressively decrease the patient's oxygen requirements. Patient again feeling subjectively better this morning compared to day before and compared to admission. His only complaints of pain are at the PIV insertion sites of r. arm, no CP or palpitations, no SOB on current ventilator settings, no N/V/AP, pt does endorse diarrhea. Patient did not sleep well last night. Review of Systems Constitutional: no fever, no chills and no sweats Respiratory: no cough and no dyspnea Cardiovascular: no chest pain and no palpitations Gastrointestinal: + diarrhea/loose stools; no abdominal pa in, no nausea, no vomiting and no constipation Genitourinary: no urinary frequency Neurologic: no tingling, no numbness and no headache(s) pain at PIV insertion sites Physical Exam Constitutional: well developed, well nourished and cooperative; no acute distress Respiratory: normal respiratory effort and able to speak in complete sentences Cardiovascular: RRR, no murmur, no edema Gastrointestinal (Abdomen): normal bowel sounds, soft, nontender, no hepatosplenomegaly Psychiatric: A+Ox3, euthymic affect Results & Data Results & Data Vital Signs (Past 12 Hours) Vital Signs Temp Pulse Pulse Resp BP Pulse Ox O2 Del Method 01/25/24 06:45 37.7 C H 78 36 H 92 01/25/24 06:45 125/84 01/25/24 06:45 125/84 01/25/24 06:45 125/84 01/25/24 06:45 125/84 01/25/24 06:30 37.8 C H 81 37 H 90 01/25/24 06:30 130/87 01/25/24 06:30 130/87 01/25/24 06:18 37.8 C H 78 24 96 01/25/24 06:15 104/79 01/25/24 06:15 104/79 01/25/24 06:01 116/85 01/25/24 06:01 116/85 01/25/24 05:51 37.8 C H 79 33 H 92 01/25/24 05:46 120/74 01/25/24 05:46 120/74 01/25/24 05:39 37.8 C H 79 31 H 95 01/25/24 05:36 37.8 C H 80 32 H 95 01/25/24 05:30 112/71 01/25/24 05:17 126/65 01/25/24 05:17 126/65 01/25/24 05:15 37.8 C H 83 38 H 91 01/25/24 05:03 37.8 C H 74 35 H 100 01/25/24 05:00 106/77 01/25/24 04:54 37.8 C H 77 35 H 92 01/25/24 04:45 117/81 01/25/24 04:45 117/81 01/25/24 04:45 117/81 01/25/24 04:39 37.8 C H 79 22 90 01/25/24 04:30 37.7 C H 73 28 H 99 01/25/24 04:30 118/75 01/25/24 04:30 118/75 01/25/24 04:30 118/75 01/25/24 04:18 37.7 C H 73 26 H 87 L 01/25/24 04:15 110/75 01/25/24 04:15 110/75 01/25/24 04:00 112/78 01/25/24 04:00 112/78 01/25/24 03:47 75 38 H 93 01/25/24 03:30 112/77 01/25/24 03:26 74 114/78 01/25/24 03:15 37.8 C H 79 34 H 92 01/25/24 03:15 114/78 01/25/24 03:11 80 147/94 H 01/25/24 03:06 147/94 H 01/25/24 03:00 93 01/25/24 02:48 80 38 H 97 01/25/24 02:45 132/88 01/25/24 02:30 131/90 01/25/24 02:30 131/90 01/25/24 02:27 37.9 C H 80 38 H 96 01/25/24 02:09 37.9 C H 78 37 H 96 01/25/24 01:45 130/90 01/25/24 01:45 130/90 01/25/24 01:36 37.9 C H 79 37 H 97 01/25/24 01:21 37.9 C H 77 35 H 96 01/25/24 01:00 118/85 01/25/24 00:57 37.9 C H 72 27 H 95 01/25/24 00:45 114/80 01/25/24 00:45 37.9 C H 73 32 H 97 01/25/24 00:33 38.0 C H 75 34 H 97 01/25/24 00:30 124/86 01/25/24 00:24 38.0 C H 76 26 H 95 01/25/24 00:15 115/80 01/25/24 00:09 38.0 C H 76 37 H 95 01/25/24 00:00 114/79 01/25/24 00:00 38.0 C H 76 37 H 97 01/24/24 23:56 77 118/75 01/24/24 23:54 75 01/24/24 23:45 118/75 01/24/24 23:45 118/75 01/24/24 23:45 118/75 01/24/24 23:45 118/75 01/24/24 23:45 118/75 01/24/24 23:45 38.0 C H 75 29 H 95 01/24/24 23:37 83 132/91 01/24/24 23:30 132/91 01/24/24 23:30 132/91 01/24/24 23:30 38.0 C H 82 38 H 96 01/24/24 23:15 38.1 C H 83 38 H 95 01/24/24 23:15 132/84 01/24/24 23:00 121/83 01/24/24 23:00 121/83 01/24/24 23:00 121/83 01/24/24 23:00 121/83 01/24/24 23:00 38.1 C H 82 38 H 96 01/24/24 22:45 123/77 01/24/24 22:45 123/77 01/24/24 22:45 123/77 01/24/24 22:45 38.2 C H 81 35 H 96 01/24/24 22:41 82 41 H 97 01/24/24 22:33 38.2 C H 81 37 H 95 01/24/24 22:30 120/79 01/24/24 22:30 120/79 01/24/24 22:30 120/79 01/24/24 22:18 38.2 C H 86 38 H 99 01/24/24 22:15 113/80 01/24/24 22:09 38.1 C H 84 31 H 97 01/24/24 22:06 38.1 C H 83 34 H 97 01/24/24 22:00 118/81 01/24/24 21:46 81 116/84 01/24/24 21:30 120/59 L 01/24/24 21:30 120/59 L 01/24/24 21:16 109/55 L 01/24/24 21:09 37.8 C H 80 38 H 98 01/24/24 21:03 37.8 C H 83 35 H 94 01/24/24 21:01 140/82 01/24/24 21:01 140/82 01/24/24 20:56 87 131/84 01/24/24 20:54 37.7 C H 86 36 H 98 01/24/24 20:45 37.7 C H 85 39 H 100 01/24/24 20:45 131/84 01/24/24 20:24 37.6 C H 85 35 H 96 01/24/24 20:15 126/85 01/24/24 20:15 126/85 01/24/24 20:00 129/93 01/24/24 20:00 BiPAP 01/24/24 19:54 37.7 C H 83 37 H 99 01/24/24 19:47 122/87 01/24/24 19:47 122/87 01/24/24 19:33 37.8 C H 81 41 H 96 01/24/24 19:30 122/78 01/24/24 19:24 83 37 H 95 01/24/24 19:24 83 37 H 95 BiPAP 01/24/24 19:21 37.9 C H 77 29 H 95 01/24/24 19:16 107/66 01/24/24 19:15 37.9 C H 76 35 H 90 FiO2 01/25/24 06:45 01/25/24 06:45 01/25/24 06:45 01/25/24 06:45 01/25/24 06:45 01/25/24 06:30 01/25/24 06:30 01/25/24 06:30 01/25/24 06:18 01/25/24 06:15 01/25/24 06:15 01/25/24 06:01 01/25/24 06:01 01/25/24 05:51 01/25/24 05:46 01/25/24 05:46 01/25/24 05:39 01/25/24 05:36 01/25/24 05:30 01/25/24 05:17 01/25/24 05:17 01/25/24 05:15 01/25/24 05:03 01/25/24 05:00 01/25/24 04:54 01/25/24 04:45 01/25/24 04:45 01/25/24 04:45 01/25/24 04:39 01/25/24 04:30 01/25/24 04:30 01/25/24 04:30 01/25/24 04:30 01/25/24 04:18 01/25/24 04:15 01/25/24 04:15 01/25/24 04:00 01/25/24 04:00 01/25/24 03:47 50 01/25/24 03:30 01/25/24 03:26 01/25/24 03:15 01/25/24 03:15 01/25/24 03:11 01/25/24 03:06 01/25/24 03:00 01/25/24 02:48 01/25/24 02:45 01/25/24 02:30 01/25/24 02:30 01/25/24 02:27 01/25/24 02:09 01/25/24 01:45 01/25/24 01:45 01/25/24 01:36 01/25/24 01:21 01/25/24 01:00 01/25/24 00:57 01/25/24 00:45 01/25/24 00:45 01/25/24 00:33 01/25/24 00:30 01/25/24 00:24 01/25/24 00:15 01/25/24 00:09 01/25/24 00:00 01/25/24 00:00 01/24/24 23:56 01/24/24 23:54 01/24/24 23:45 01/24/24 23:45 01/24/24 23:45 01/24/24 23:45 01/24/24 23:45 01/24/24 23:45 01/24/24 23:37 01/24/24 23:30 01/24/24 23:30 01/24/24 23:30 01/24/24 23:15 01/24/24 23:15 01/24/24 23:00 01/24/24 23:00 01/24/24 23:00 01/24/24 23:00 01/24/24 23:00 01/24/24 22:45 01/24/24 22:45 01/24/24 22:45 01/24/24 22:45 01/24/24 22:41 60 01/24/24 22:33 01/24/24 22:30 01/24/24 22:30 01/24/24 22:30 01/24/24 22:18 01/24/24 22:15 01/24/24 22:09 01/24/24 22:06 01/24/24 22:00 01/24/24 21:46 01/24/24 21:30 01/24/24 21:30 01/24/24 21:16 01/24/24 21:09 01/24/24 21:03 01/24/24 21:01 01/24/24 21:01 01/24/24 20:56 01/24/24 20:54 01/24/24 20:45 01/24/24 20:45 01/24/24 20:24 01/24/24 20:15 01/24/24 20:15 01/24/24 20:00 01/24/24 20:00 90 01/24/24 19:54 01/24/24 19:47 01/24/24 19:47 01/24/24 19:33 01/24/24 19:30 01/24/24 19:24 70 01/24/24 19:24 70 01/24/24 19:21 01/24/24 19:16 01/24/24 19:15 Diagnostic Findings Chest X-Ray 01/25/24 06:30 XR chest 1V portable HISTORY: 58 years-old Male eval lung rodriguez acute shortness of breath COMPARISON: 01/22/2024 TECHNIQUE: AP view of the chest FINDINGS: Interval removal of the endotracheal and enteric tubes. Cardiac silhouette is enlarged. There is progressive worsening of the right greater than left mixed interstitial and alveolar opacities. Equivocal trace pleural effusions. No pneumothorax. Spondylitic spurring of the spine. IMPRESSION: 1. Status post extubation with removal of the enteric tube. 2. Progressively worsened extensive right greater than left mixed interstitial and alveolar opacities. ACT 112: Negative or not required by law. The above report was generated using voice recognition software. It may contain grammatical, syntax or spelling errors. Electronically signed by: Lamont Levi M.D. 01/25/2024 7:44 AM
--- NOTE | 2024-01-25 07:45 | XRay Report ---
XR chest 1V portable HISTORY: 58 years-old Male eval lung rodriguez acute shortness of breath COMPARISON: 01/22/2024 TECHNIQUE: AP view of the chest FINDINGS: Interval removal of the endotracheal and enteric tubes. Cardiac silhouette is enlarged. There is prog ressive worsening of the right greater than left mixed interstitial and alveolar opacities. Equivocal trace pleural effusions. No pneumothorax. Spondylitic spurring of the spine. IMPRESSION: 1. Status post extubation with removal of the enteric tube. 2. Progressively worsened extensive right greater than left mixed interstitial and alveolar opacities . ACT 112: Negative or not required by law. The above report was generated using voice recognition software. It may contain grammatical, syntax o r spelling errors. Electronically signed by: Lamont Levi M.D. 01/25/2024 7:44 AM
[2024-01-25] MEDS: FUROSEMIDE 40 MG/4 ML VIAL IV ONE ×2 (09:26)
[2024-01-25 10:09] LABS: Phosphorus 3.2 mg/dl (2.5-4.9)
[2024-01-25] MEDS: RAPID SEQUENCE INDUCTION BAG ONE (10:48)
[2024-01-25] MEDS: propofoL 1,000 MG/100 ML VIAL IV SCH (11:00)
[2024-01-25] MEDS ORDERED: STAT IV Infusion **Titration per Protocol STA (11:01)
[2024-01-25] MEDS ORDERED: PROPOFOL BOLUS FROM BAG IV PRN (11:02)
--- NOTE | 2024-01-25 11:08 | Procedure Note ---
Procedure Note Date of Service January 25, 2024 INTUBATION PROCEDURE NOTE: Provider: Karthik Salcedo MD A time-out was completed verifying correct patient, procedure, site, positioning. Patient was evaluated and required intubation for hypoxemic respiratory failure. Sedative agent used: Etomidate 40 mg, Versed 4 mg Paralysis agent used: None Patient has developed progressive hypoxemic and hypercapnic respiratory failure and has been on noninvasive positive pressure ventilation for over 72 hours without significant improvement. He is developing progressive respiratory distress with tachypnea and increased work of breathing. Risks and benefits were verbally discussed with the patient. He states he is fatiguing and wants to be intubated. We did discuss need for tracheostomy if he pursues this option and he is agreeable to pursue percutaneous tracheostomy with its attendant risks and benefits. The patient was prepared in the appropriate fashion. Sedation was achieved utilizing etomidate and Versed. The patient was on noninvasive positive pressure ventilation which was used for preoxygenation. He was placed on an FiO2 of 1.0. An 8.0 endotracheal tube was placed under video laryngoscopic visualization. The stylette was removed and balloon was inflated with 10mL of air. Appropriate Colorimetric change was appreciated. Bilateral breath sounds were heard without air sounds in the abdomen. Tube was verified bronchoscopically. Please see separate procedure note Patient did develop transient decrease in blood pressure down to the 80s systolics and was initiated on Denzel-Synephrine. This improved blood pressure. Patient tolerated the procedure well and there were no immediate complications. [facility] [place]odes (Charges) Resuscitation Resuscitation: 85109 Endotracheal Intubation, emergency Coding CPT Codes Resuscitation - Resuscitation: 00829 Endotracheal Intubation, emergency ([id number]) Additional Codes Date of Service (PG.SURGERY)
--- NOTE | 2024-01-25 11:13 | Procedure Note ---
Procedure Note Date of Service January 25, 2024 Procedure: Fiberoptic bronchoscopy Bronchoalveolar lavage Provider: Karthik Salcedo MD Consent: Verbally confirmed with patient and timeout verified prior to procedure. Procedure: Patient was in the intensive care unit. He has developed progressive respiratory failure unresponsive to noninvasive positive pressure ventilation was intubated. Due to diffuse pulmonary infiltrates, bronchoscopy with collection of lower respiratory specimens was warranted. The fiberoptic scope was advanced through the endotracheal tube via the Bodai adapter. The tube was verified to be about 2 cm above the marga. Minimal secretions were noted in the trachea and left and right mainstem bronchus which were slightly blood-tinged. These were collected using saline lavage and will be sent for microbiologic analysis. A systemic inspection of the airways was conducted. There were thin secretions present throughout with some blood-tinged appearance but no obvious mucopurulence identified. The tracheobronchial tree was widely patent. Mucosa appeared normal. After the inspection bronchoscopy was completed, the scope was wedged into the right upper lobe. A BAL was performed with instillation of 2 aliquots of 40 cc of saline. Return was clear with no evidence of pulmonary hemorrhage. The bronchoscope was then removed from the airways. The patient tolerated the procedure well without obvious complication. Patient was returned to the recovery room. Impression: 1. Adequately positioned endotracheal tube. 2. Scant secretions within the trachea, await microbiologic analysis. 3. Successful BAL right upper lobe with no evidence of pulmonary hemorrhage. Fluid sent for microbiologic analysis. [facility] [place] Procedure Codes (Charges) Pulmonary/Thoracic Procedure 1: Pulmonary and Thoracic: 16966 Dx bronchoscopy/BAL Coding CPT Codes Pulmonary/Thoracic - Pulmonary and Thoracic: 97884 Dx bronchoscopy/BAL ([id number]) Additional Codes Date of Service (PG.SURGERY)
[2024-01-25] MEDS: PROPOFOL IV EMULSION 10 MG/ML 100 ML VIAL IV ONE (11:24)
[2024-01-25] MEDS: PHENYLEPHRINE/NSS 25 MG/250 ML BAG IV SCH (11:24)
[2024-01-25] MEDS: PHENYLEPHRINE HCL 25 MG/250 ML NSS IV ONE (11:24)
--- NOTE | 2024-01-25 11:25 | Billing Data ---
Date of Service January 25, 2024 Coding Level of Care Code 06181 CRITICAL CARE EA ADD 30M
--- NOTE | 2024-01-25 11:43 | XRay Report ---
XR chest 1V portable CLINICAL HISTORY: ETT placement COMPARISON STUDY: Chest radiograph January 20, 2024. Chest radiograph performed earlier today. FINDINGS: The tip of the endotracheal tube is 4.6 cm above the marga. Tip of nasogastric/feeding tub e is within the body of the stomach. Cardiomediastinal silhouette is stable. There is no pneumothorax . There are trace bilateral pleural effusions. Interstitial thickening in bilateral airspace opacitie s are similar to prior exam. IMPRESSION: 1. Satisfactory positioning of the endotracheal tube. 2. Interstitial thickening consistent with pulmonary edema. Extensive bilateral alveolar opacities co uld reflect alveolar pulmonary edema or superimposed pneumonia. 3. No pneumothorax. Trace bilateral pleural effusions. ACT 112: Negative or not required by law. Electronically signed by: Wong Montenegro M.D. 01/25/2024 11:42 AM
[2024-01-25] MEDS ORDERED: 0.2 MICRON FILTER SET 1 EACH IV ONE (12:12)
--- NOTE | 2024-01-25 12:22 | XRay Report ---
KUB HISTORY: feeding tube placement COMPARISON: None. FINDINGS: The bowel gas pattern is unremarkable. There are no dilated loops of small bowel to suggest an obstruction. No renal calculi. No ureteral calculi. No pneumoperitoneum or pneumatosis. Feeding tube is curled within the proximal stomach. IMPRESSION: Feeding tube is curled within the proximal stomach. ACT 112: Negative or not required by law. Electronically signed by: Malik Fatima M.D. 01/25/2024 12:21 PM
[2024-01-25] MEDS: AMIODARONE / D5W 150 MG/100 ML BAG IV STA (12:40)
[2024-01-25] MEDS: 4.5GM X1 IV ONE (12:41)
[2024-01-25 13:31] LABS: Eosinophil Body Fluid Man 2 %; Fluid Mono/Macrophage 15 %; Lymphocyte Body Fluid Man 9 %; Neutrophil Body Fluid Man 74 %
[2024-01-25] MEDS ORDERED: MIDAZOLAM HCL 5 MG/ML 2ML VIAL IV ONE (13:32)
[2024-01-25] MEDS ORDERED: ETOMIDATE 2 MG/ML 20 ML VIAL IV ONE (13:32)
--- NOTE | 2024-01-25 14:01 | Hospitalist Progress Note ---
Date of Service January 25, 2024 Assessment & Plan (1) Respiratory failure: Plan: Patient was admitted to the hospital and found to be in respiratory failure CT scan of the chest showed evidence of likely aspiration He required intubation and ventilation, was extubated, However failed weaning trial Plan is for reintubation today 01/25/2024 Appreciate pulmonology recommendations and urban planning professor (2) Non-ischemic cardiomyopathy: Plan: cardiopulmonary resuscitation with cpr for decompensated cardiogenic shock Elevated troponin/atrial flutter with RVR/history of paroxysmal atrial fibrillation and A-fib with RVR/hypertension/nonischemic cardiomyopathy- amiodarone gtt restarted 01/21 for possible seizure Keppra given but not continued elevated lft consistent with shock liver fever with concern for aspiration pneumonia now on unasyn has required pressors with cardiogenic shock, had been on dobutamine compensated 01/23 possible re intubation if fails BiPap CT head without acute changes heparin gtt now restarted with afib/flutter unclear if elevated troponin was nstemi or demand ischemia, now after cpr will be difficult to tell (3) History of alcohol abuse: Plan: unclear of last drink, did get bananna bag, and is on thiamine also tobacco abuse Plan Continue to monitor in the ICU, Admission and Anticipated Discharge Date Admission Date: January 20, 2024 Subjective Patient seen and examined, he failed weaning trial, the plan is for reintubation Review of Systems Review of Systems: All systems reviewed are negative, apart from the ones contained in the history. Physical Exam Physical Exam: The patient is awake, alert and oriented 3, In mild respiratory distress, using accessory muscles to breathe HEENT--PERRL, EOMI, mucous membranes and oropharynx mildly dry Neck--supple. No JVD. No bruits. Thyroid normal, trachea midline, no adenopathy. Heart--normal S1 and S2. No murmurs, rubs or gallops. Lungs--clear bilaterally, no respiratory distress, no accessory muscle use. Abdomen--normal bowel sounds and soft. Extremities--no cyanosis or clubbing. No edema. Dermatologic--normal skin turgor, normal color, no abnormal lymph nodes, no rash. Neurologic--cranial nerves II through XII grossly intact. Rheumatologic--normal range of motion. Psychiatric--normal affect. Results & Data Results & Data Vital Signs (Past 12 Hours) Vital Signs Temp Pulse Pulse Resp BP Pulse Ox O2 Del Method 01/25/24 11:40 69 21 98 01/25/24 09:38 72 112/78 01/25/24 09:30 99.9 F H 72 37 H 112/78 88 L BiPAP 01/25/24 09:00 100.0 F H 82 27 H 125/82 90 BiPAP 01/25/24 08:48 83 42 H 95 01/25/24 08:47 82 131/85 01/25/24 08:30 100.0 F H 82 32 H 131/92 86 L High Flow Nasal Cannula 01/25/24 08:00 100.0 F H 84 26 H 105/88 92 High Flow Nasal Cannula 01/25/24 08:00 79 01/25/24 07:45 99.9 F H 83 48 H 129/93 90 High Flow Nasal Cannula 01/25/24 07:40 85 34 H 91 High Flow Nasal Cannula 01/25/24 07:30 BiPAP 01/25/24 07:30 99.9 F H 80 42 H 116/80 94 BiPAP 01/25/24 07:20 40 H 94 BiPAP 01/25/24 06:45 99.9 F H 78 36 H 92 01/25/24 06:45 125/84 01/25/24 06:45 125/84 01/25/24 06:45 125/84 01/25/24 06:45 125/84 01/25/24 06:30 100.0 F H 81 37 H 90 01/25/24 06:30 130/87 01/25/24 06:30 130/87 01/25/24 06:18 100.0 F H 78 24 96 01/25/24 06:15 104/79 01/25/24 06:15 104/79 01/25/24 06:01 116/85 01/25/24 06:01 116/85 01/25/24 05:51 100.0 F H 79 33 H 92 01/25/24 05:46 120/74 01/25/24 05:46 120/74 01/25/24 05:39 100.0 F H 79 31 H 95 01/25/24 05:36 100.0 F H 80 32 H 95 01/25/24 05:30 112/71 09/17/24 05:17 126/65 01/25/24 05:17 126/65 01/25/24 05:15 100.0 F H 83 38 H 91 01/25/24 05:03 100.0 F H 74 35 H 100 01/25/24 05:00 106/77 01/25/24 04:54 100.0 F H 77 35 H 92 01/25/24 04:45 117/81 01/25/24 04:45 117/81 01/25/24 04:45 117/81 01/25/24 04:39 100.0 F H 79 22 90 01/25/24 04:30 99.9 F H 73 28 H 99 01/25/24 04:30 118/75 01/25/24 04:30 118/75 01/25/24 04:30 118/75 01/25/24 04:18 99.9 F H 73 26 H 87 L 01/25/24 04:15 110/75 01/25/24 04:15 110/75 01/25/24 04:00 112/78 01/25/24 04:00 112/78 01/25/24 03:47 75 38 H 93 01/25/24 03:30 112/77 01/25/24 03:26 74 114/78 01/25/24 03:15 100.0 F H 79 34 H 92 01/25/24 03:15 114/78 01/25/24 03:11 80 147/94 H 01/25/24 03:06 147/94 H 01/25/24 03:00 93 01/25/24 02:48 80 38 H 97 01/25/24 02:45 132/88 01/25/24 02:30 131/90 01/25/24 02:30 131/90 01/25/24 02:27 100.2 F H 80 38 H 96 01/25/24 02:09 100.2 F H 78 37 H 96 O2 Flow Rate FiO2 01/25/24 11:40 80 01/25/24 09:38 01/25/24 09:30 01/25/24 09:00 01/25/24 08:48 100 01/25/24 08:47 01/25/24 08:30 60 100 01/25/24 08:00 60 100 01/25/24 08:00 01/25/24 07:45 60 100 09/17/24 07:40 60 100 01/25/24 07:30 50 01/25/24 07:30 01/25/24 07:20 01/25/24 06:45 01/25/24 06:45 01/25/24 06:45 01/25/24 06:45 01/25/24 06:45 01/25/24 06:30 01/25/24 06:30 01/25/24 06:30 01/25/24 06:18 01/25/24 06:15 01/25/24 06:15 01/25/24 06:01 01/25/24 06:01 01/25/24 05:51 01/25/24 05:46 01/25/24 05:46 01/25/24 05:39 01/25/24 05:36 01/25/24 05:30 01/25/24 05:17 01/25/24 05:17 01/25/24 05:15 01/25/24 05:03 01/25/24 05:00 01/25/24 04:54 01/25/24 04:45 01/25/24 04:45 01/25/24 04:45 01/25/24 04:39 01/25/24 04:30 01/25/24 04:30 01/25/24 04:30 01/25/24 04:30 01/25/24 04:18 01/25/24 04:15 01/25/24 04:15 01/25/24 04:00 01/25/24 04:00 01/25/24 03:47 50 01/25/24 03:30 01/25/24 03:26 01/25/24 03:15 01/25/24 03:15 01/25/24 03:11 01/25/24 03:06 01/25/24 03:00 01/25/24 02:48 01/25/24 02:45 01/25/24 02:30 01/25/24 02:30 01/25/24 02:27 01/25/24 02:09 PG Care Time/CCT Total # of Minutes Spent Total Time Spent with Patient: Total time spent is greater than 50% in coordination of care (as documented) at patient's floor/unit and/or counseling patient: Coding Level of Care Code 24609 SUB INP/OBS CARE 235MIN Diagnoses Respiratory failure J96.90 Non-ischemic cardiomyopathy I42.8 History of alcohol abuse F10.11 Time Spent (min) 35
[2024-01-25] MEDS ORDERED: Nursing to Pharmacy Communication SCH (15:45)
[2024-01-25] MEDS: FUROSEMIDE 40 MG/4 ML VIAL IV SCH (16:20)
[2024-01-25] MEDS: PIPERACILLIN/TAZOBACTAM 4.5 GM/100 ML BAG IV SCH (16:20)
[2024-01-25 18:44] LABS: BUN Creatinine Ratio 25.4 (10-20); Calcium 7.3 mg/dl (8.6-10.3); Creatinine Clr Calc Pharmacy 106.6 ml/min; Est GFR (African American) 122.8 ml/min; Est GFR (Non-African American) 105.9 ml/min; Magnesium 1.7 mg/dl (1.7-2.4); Phosphorus 2.7 mg/dl (2.5-4.9); Potassium 3.3 mmol/L (3.5-5.1)
[2024-01-25] MEDS ORDERED: POTASSIUM CHLORIDE / WTR 10 MEQ/100 ML PLCT IV SCH (19:45)
[2024-01-25] MEDS: POTASSIUM CHLORIDE 20 MEQ/15 ML UDC NG STA (20:09)
[2024-01-25] MEDS: MAGNESIUM SULFATE / D5W 1 GM/100 ML BAG IV SCH (20:09)
[2024-01-26] MEDS: ACETAMINOPHEN 325 MG TAB PO PRN (01:40)
[2024-01-26 05:04] LABS: Basophils # (auto) 0.02 K/uL (0.00-0.20); Basophils % (auto) 0.3 %; Eosinophils # (auto) 0.03 K/uL (0.00-0.50); Eosinophils % (auto) 0.5 %; Hematocrit (blood only) 31.6 % (42.0-52.0); Immature Granulocytes # (auto) 0.07 K/uL (0.01-0.20); Immature Granulocytes % (auto) 1.1 %; Lymphocytes # (auto) 1.23 K/uL (1.20-3.40); Lymphocytes % (auto) 18.6 %; Mean Corpuscular Hemoglobin 34.5 pg (25.0-34.0); Mean Corpuscular Hgb Conc 34.8 g/dL (32.0-36.0); Mean Corpuscular Volume 99.1 fL (80.0-100.0); Mean Platelet Volume 11.1 fL (9.4-12.4); Monocytes # (auto) 0.59 K/uL (0.11-0.59); Monocytes % (auto) 8.9 %; Neutrophils # (auto) 4.67 K/uL (1.40-6.50); Neutrophils % (auto) 70.6 %; Platelet Count 120 K/uL (130-400); RDW Standard Deviation 51.8 fL (36.4-46.3); Red Blood Count 3.19 M/uL (4.70-6.10); White Blood Count 6.61 K/ul (4.8-10.8)
[2024-01-26 05:12] LABS: BUN Creatinine Ratio 25.7 (10-20); Calcium 7.6 mg/dl (8.6-10.3); Creatinine Clr Calc Pharmacy 96.5 ml/min; Est GFR (African American) 117.8 ml/min; Est GFR (Non-African American) 101.7 ml/min; Magnesium 2.8 mg/dl (1.7-2.4); Potassium 3.7 mmol/L (3.5-5.1)
[2024-01-26 05:18] LABS: ANTI-Xa, UFH(UnfractionatedHep < 0.10 IU/ml (0.3-0.7)
[2024-01-26] MEDS: POTASSIUM CHLORIDE 20 MEQ/15 ML UDC NG STA (05:53)
[2024-01-26] MEDS: LIDOCAINE 2%/EPINEPHRINE 1:100,000 20ML INFIL ONE (07:15)
[2024-01-26] MEDS: fentaNYL citrate PF 100 MCG/2 ML VIAL IV PRN (07:18)
[2024-01-26] MEDS: VECURONIUM BROMIDE 10 MG VIAL IV ONE (07:20)
--- NOTE | 2024-01-26 07:33 | Procedure Note ---
Procedure Note Date of Service January 26, 2024 BRONCHOSCOPY - Procedure: Flexible Bronchoscopy Mercerizer: Riky GOLDSMITH ([facility]) Attending: Dr. SALCEDO Anesthetic/Sedation: Fentanyl 100mcg, Propofol Infusion 30mcg/kg/min, Vecuronium 10mg IV x1 Indication: Real time visualization for PERC Trach placement Consent was obtained prior by Dr. Salcedo A time-out was completed verifying correct patient, procedure, site, positioning, and implant(s) or special equipment if applicable. Procedure: Bronchoscope was advanced down ETT, marga visualized, the right upper middle and lower lobes were quickly visualized with scant thin clear mucous that was cleared, the left upper and lower lobes were quickly visualized with no secretions. The bronchoscope was then withdrawn with the ETT to the vocal chords until transillumination was visualized by Dr. SALCEDO. The seeker needle was then placed through anterior neck by Dr. SALCEDO, visualized in good position with bronchoscope as well as noting not through back wall of trachea. The guidewire was advanced and visualized going downward towards the marga. Serial dilations were completed by Dr. Salcedo and 8.0 cuffed Tracheostomy with inner cannula was then placed into the trachea, direct visualization with bronchoscope through the newly placed trachea was done, again visualizing the marga and no airway obstruction. The scope was removed, the patient was then placed on ventilator noting adequate VT as well as appropriate ETCO2 waveform was confirmed. Patient tolerated procedure well without any immediate complications noted. Riky GOLDSMITH ([facility]) [facility] Procedure Codes (Charges) Pulmonary/Thoracic Procedure 1: Pulmonary and Thoracic: 69710 Bronchoscopy, clear airways Coding CPT Codes Pulmonary/Thoracic - Pulmonary and Thoracic: 65841 Bronchoscopy, clear airways ([id number]) Additional Codes Date of Service (PG.SURGERY)
--- NOTE | 2024-01-26 07:45 | Procedure Note ---
Procedure Note Date of Service January 26, 2024 Procedure: 1. Percutaneous ddilational 6.o Shiley tracheostomy placement Indication respiratory failure Tech Brazer Tester Dr. Karthik Salcedo Medical Office Secretary: GERALD Bsowell Anesthesia: Patient was maintained on a propofol infusion. 10 mL bolus was administered as well as infusion at continuous rate. 100 mcg fentanyl. 10 mg vecuronium. Consent: Risks and benefits were discussed with the patient prior to intubation. He agreed and verbal consent was obtained. Timeout was performed Estimated blood loss: Less than 10 mL Procedure: The patient is in the ICU intubated and on the ventilator. He is placed on 100 percent FiO2. A timeout was performed. Consent was verified. Patient was paralyzed and sedation maintained. Once anesthesia was appropriate, neck roll was placed under the shoulders to allow for extension of the neck. Landmarks were easily palpable. An area approximately 1 cm below the cricoid cartilage was cleaned and draped using chlorhexidine. A sterile field was established. Using an 11 blade scalpel, a 1.5 cm longitudinal incision of the trachea was made. Blunt dissection with my index finger and the curved hemostats was conducted down until I could palpate tracheal rings with my index finger. At that point in time, GERALD Boswell advanced the bronchoscope through the existing endotracheal tube. The bronchoscope was left at the tip of the ET tube. The cuff was deflated and the bronchoscope and endotracheal tube were withdrawn to a level just below the glottis. I was able to observe external ballottement using a curved forceps. Using an 18-gauge over the needle Angiocath, the trachea was entered between the second and third cartilaginous ring. A wire was passed through the catheter into the distal airway and visualized bronchoscopically to be distending into the lower airways. Catheter was removed leaving the wire in place. Stiff dilator was used to dilate the tract and then the Rhino dilator and guiding catheter were advanced over the wire into the airway. The Rhino dilator was removed leaving the wire and guid ing catheter in place. A previously tested 6 oh Shiley cuffed tracheostomy had been lubricated and loading on a 26 Icelandic delivery catheter. This was advanced over the wire and guiding catheter into the airway. Once the tracheostomy was in place, the loading catheter, guiding catheter, and wire were removed. The bronchoscope was then removed from the endotracheal tube and advanced through the newly placed tracheostomy tube and verified to be within the airway. The balloon was inflated. The inner cannula was replaced and the patient was attached to the ventilator. Good return tidal volumes were obtained. 3 Vicryl stay sutures were placed in the newly placed tracheostomy through the eyelets and at the 6 o'clock position. A drain sponge was placed and trach ties were attached. The roll under the shoulder blades was removed. Patient tolerated the procedure well. [facility] Codes (Charges) ENT ENT: 08606 Incision of windpipe Coding CPT Codes ENT - ENT: 41217 Incision of windpipe ([id number]) Additional Codes Date of Service (PG.SURGERY)
--- NOTE | 2024-01-26 08:02 | Hospitalist Progress Note ---
Date of Service January 26, 2024 Assessment & Plan (1) Respiratory failure: Plan: Patient was admitted to the hospital and found to be in respiratory failure CT scan of the chest showed evidence of likely aspiration on Zosyn for aspiration pneumonia He required intubation and ventilation, was extubated, However failed weaning trial Reintubation 01/25/2024. tracheostomy placed 01/26/24 Appreciate pulmonology recommendations and oncology admin (2) Non-ischemic cardiomyopathy: Plan: cardiopulmonary resuscitation with cpr for decompensated cardiogenic shock Elevated troponin/atrial flutter with RVR/history of paroxysmal atrial fibrillation, nonischemic cardiomyopathy- amiodarone used to control, convert afib for possible seizure Keppra given but not continued has required pressors with cardiogenic shock, had been on dobutamine CT head without acute changes heparin gtt now restarted with afib/flutter. In past had thrombus in ventricle unclear if elevated troponin was nstemi or demand ischemia, now after cpr will be difficult to tell (3) History of alcohol abuse: Plan: unclear of last drink, did get bananna bag, and is on thiamine also tobacco abuse Plan Continue to monitor in the ICU, disposition maybe challenging Admission and Anticipated Discharge Date Admission Date: January 20, 2024 Subjective Patient seen a few hours following his tracheostomy procedure this morning and was still slightly sedated. He was trying to speak words to me, he is much more stabililzed being vented via the tracheostomy. appears comfortable Physical Exam Physical Exam: Patient followed commands attempting to communicate Coarse breath sounds in bilateral chest anteriorly rate controlled regular rate Abdomen was NABS and soft Results & Data Results & Data Vital Signs (Past 12 Hours) Vital Signs Temp Pulse Resp BP Pulse Ox FiO2 01/26/24 07:45 99.7 F H 62 16 96 01/26/24 07:45 114/73 01/26/24 07:45 114/73 01/26/24 07:39 99.7 F H 63 16 97 01/26/24 07:37 124/75 01/26/24 07:27 119/75 01/26/24 07:27 119/75 01/26/24 07:27 99.9 F H 64 16 100 01/26/24 07:25 117/70 01/26/24 07:24 99.9 F H 64 16 100 01/26/24 07:23 118/71 01/26/24 07:23 118/71 01/26/24 07:23 118/71 01/26/24 07:21 99.9 F H 66 16 100 01/26/24 07:20 101/66 01/26/24 07:14 92/62 L 01/26/24 07:11 100/64 01/26/24 06:48 99.7 F H 63 23 99 01/26/24 06:45 99/67 L 01/26/24 06:45 99/67 L 01/26/24 06:36 99.7 F H 65 26 H 99 01/26/24 06:30 99.7 F H 66 24 99 01/26/24 06:30 98/66 L 01/26/24 06:15 96/66 L 01/26/24 06:12 99.9 F H 64 28 H 99 01/26/24 06:00 99.9 F H 63 25 H 100 01/26/24 06:00 104/69 01/26/24 06:00 104/69 01/26/24 05:45 99.9 F H 60 25 H 99 01/26/24 05:45 100/69 01/26/24 05:15 104/74 01/26/24 05:15 104/74 01/26/24 05:15 104/74 01/26/24 05:12 100.0 F H 61 32 H 100 01/26/24 05:00 100.0 F H 61 27 H 99 01/26/24 05:00 103/72 01/26/24 05:00 103/72 01/26/24 05:00 103/72 01/26/24 04:45 103/70 01/26/24 04:45 103/70 01/26/24 04:45 103/70 01/26/24 04:45 100.0 F H 62 29 H 99 01/26/24 04:36 100.0 F H 65 31 H 98 01/26/24 04:30 70/49 L 01/26/24 04:15 79/56 L 01/26/24 04:15 79/56 L 01/26/24 04:12 100.2 F H 65 24 98 01/26/24 04:00 40 01/26/24 04:00 93/65 L 01/26/24 04:00 93/65 L 01/26/24 03:48 100.2 F H 59 L 22 99 01/26/24 03:45 100.2 F H 59 L 25 H 99 01/26/24 03:45 103/66 01/26/24 03:45 103/66 01/26/24 03:45 103/66 01/26/24 03:39 100.4 F H 59 L 28 H 98 01/26/24 03:30 101/66 01/26/24 03:30 101/66 01/26/24 03:21 100.4 F H 60 24 98 01/26/24 03:20 62 19 97 40 01/26/24 03:18 100.4 F H 61 26 H 98 01/26/24 03:15 101/70 01/26/24 03:00 100/67 01/26/24 02:51 100.6 F H 61 18 98 01/26/24 02:45 100.6 F H 61 20 98 01/26/24 02:45 95/68 L 01/26/24 02:45 95/68 L 01/26/24 02:45 95/68 L 01/26/24 02:30 96/65 L 01/26/24 02:30 96/65 L 01/26/24 02:27 100.8 F H 60 16 99 01/26/24 02:15 100.8 F H 61 21 98 01/26/24 02:15 101/66 01/26/24 02:15 101/66 01/26/24 02:00 104/70 01/26/24 02:00 104/70 01/26/24 02:00 104/70 01/26/24 02:00 104/70 01/26/24 02:00 100.8 F H 61 16 98 01/26/24 01:45 100.9 F H 64 16 98 01/26/24 01:45 109/71 01/26/24 01:45 109/71 01/26/24 01:45 109/71 01/26/24 01:36 100.8 F H 63 44 H 98 01/26/24 01:30 109/76 01/26/24 01:30 109/76 01/26/24 01:27 100.8 F H 63 39 H 98 01/26/24 01:15 105/73 01/26/24 01:15 105/73 01/26/24 01:15 105/73 01/26/24 01:12 100.8 F H 62 25 H 98 01/26/24 01:00 103/70 01/26/24 01:00 103/70 01/26/24 01:00 103/70 01/26/24 01:00 103/70 01/26/24 01:00 100.8 F H 61 17 98 01/26/24 00:45 102/69 01/26/24 00:33 100.8 F H 61 18 97 01/26/24 00:30 97/67 L 01/26/24 00:30 97/67 L 01/26/24 00:27 100.8 F H 60 19 97 01/26/24 00:15 92/69 L 01/26/24 00:12 100.8 F H 60 35 H 97 01/26/24 00:00 89/67 L 01/26/24 00:00 89/67 L 01/26/24 00:00 40 01/26/24 00:00 60 01/25/24 23:57 61 19 98 40 01/25/24 23:54 100.6 F H 61 34 H 98 01/25/24 23:45 92/67 L 01/25/24 23:45 92/67 L 01/25/24 23:45 100.6 F H 61 26 H 98 01/25/24 23:30 95/68 L 01/25/24 23:27 100.6 F H 61 27 H 96 01/25/24 23:03 100.6 F H 62 32 H 98 01/25/24 23:00 95/65 L 01/25/24 23:00 95/65 L 01/25/24 22:48 100.8 F H 61 30 H 99 01/25/24 22:45 100.6 F H 61 28 H 99 01/25/24 22:45 90/64 L 01/25/24 22:45 90/64 L 01/25/24 22:36 100.6 F H 61 29 H 99 01/25/24 22:15 87/61 L 01/25/24 22:15 100.6 F H 61 24 100 01/25/24 22:00 84/62 L 09/17/24 22:00 84/62 L 01/25/24 22:00 84/62 L 01/25/24 22:00 100.6 F H 63 23 100 01/25/24 21:48 100.4 F H 63 23 100 01/25/24 21:45 86/62 L 01/25/24 21:45 86/62 L 01/25/24 21:45 86/62 L 01/25/24 21:30 80/56 L 01/25/24 21:24 100.4 F H 59 L 23 100 01/25/24 21:15 84/54 L 01/25/24 21:12 100.4 F H 60 22 100 01/25/24 21:03 100.4 F H 60 19 100 01/25/24 21:00 90/63 L 01/25/24 21:00 90/63 L 01/25/24 20:57 100.4 F H 60 18 100 01/25/24 20:45 104/68 01/25/24 20:45 104/68 01/25/24 20:36 100.4 F H 59 L 16 100 01/25/24 20:23 17 50 01/25/24 20:15 110/69 01/25/24 20:15 110/69 01/25/24 20:15 110/69 01/25/24 20:12 100.6 F H 60 19 100 01/25/24 20:03 100.6 F H 60 19 100 Laboratory Results reviewed cbc reviewed chemistry discussed case with icu attending PG Care Time/CCT Total # of Minutes Spent Total Time Spent with Patient: Total time spent is greater than 50% in coordination of care (as documented) at patient's floor/unit and/or counseling patient: Coding Level of Care Code 31937 SUB INP/OBS CARE 3/50MIN Diagnoses Respiratory failure J96.90 Non-ischemic cardiomyopathy I42.8 History of alcohol abuse F10.11
--- NOTE | 2024-01-26 08:45 | Critical Care Progress Note ---
Date of Service January 26, 2024 Assessment & Plan (1) Aspiration pneumonia: (2) Cardiogenic shock: (3) Respiratory failure: (4) COPD with emphysema: (5) Bilirubinemia: (6) Transaminitis: (7) Atrial flutter with rapid ventricular response: (8) Acute on chronic HFrEF (heart failure with reduced ejection fraction): (9) Non-ischemic cardiomyopathy: Plan Plan Reason Critically Ill: 58-year-old male presented to hospital with complaints of shortness of breath. Sent to ICU for cardiac arrest, intubated Past medical history: Systolic CHF, A-fib on Xarelto, nonischemic cardiomyopathy, hypertension Neuro [facility] ICU: ; AAO x 0 #Propofol for sedation during tracheostomy, weaning off currently --New onset seizure on the day of presentation to the ER No recurrence Etiology is not clear Got a loading dose of Keppra on 01/20/2024, discontinued afterwards TSH within normal limit CT of the head 01/20/2024 negative for any intracranial findings. EEG 01/22/2024: Mild abnormal study diffuse slowing, no epileptic activity noted Cardiac -- Cardiac arrest with cardiogenic shock Etiology is likely cardiac/systolic CHF temporarily on phenylephrine for pressor support after sedation during tracheostomy - no pedal edema, crackles only at bases of post lungs - furosemide, 40 mg, IV, BID - metolazone --A-fib with RVR/Hypertension Rate controlled on home meds; amiodarone bolus in the ED --> restarted 01/22/2024 Got bolus of 300 mcg bolus 01/21/2024 followed by 150 mcg x 2 on 01/22/2024 #amiodarone drip, 0.5 mg/min --> stopped restart rate control/anti-hypertensive: metoprolol succinate, 25 mg, PO, q6hrs #clonidine patch, 0.2 mg, TD, 24-hr discontinued #hydralazine, 10 mg, IV, q4hr, PRN (for SBP > 125 or DBP > 75) discontinued --Elevated troponins #resolved Likely type II ND Trended down, 165 <-- 239, then stopped following --Systolic CHF Decrease in EF from 40% to 25% 2D echo 01/20/2024: EF 20-25%, normal RV, mildly reduced RV function, PASP 40-45 mmHg, mild MR BNP, 3197 (01/26/24) Respiratory CT chest 01/20/2024 personally reviewed: Centrilobular emphysema appreciated bilaterally Interlobular thickening appreciated bilaterally Consolidative process appreciated bilateral lower lobes, Small bilateral pleural effusion, No significant mediastinal lymphadenopathy CXR, 01/26/24 Findings still consistent with pulmonary edema with possible superimposed pneumonia - procalcitonin, 1.21; BNP, 3197 (baseline ~ 900); WBC, 6.6 - repeat procalcitonin ordered for AM of 01/27/24 -- VDRF For airway protection secondary to cardiac arrest Patient failed extubation and progression to Hi-Flow O2, Re-intubated yesterday, tracheostomy performed this morning Continue with ventilatory support This morning a RASS, -4 --S/p Tracheostomy Patient being weaned off of propofol, last dose of vecuronium ~7:30 am Ventilator settings: A/CMV, 50% FiO2, PEEP 8.0 cm For pain s/p tracheostomy, start toradol, 15mg, IV, q6hrs, PRN --Hypoxic respiratory failure Likely secondary to pulmonary edema with possible aspiration Diuresis as tolerated --> furosemide; monitor I's and O's Broadened antibiotic coverage, Zosyn, 4500g, IV, q6hrs -- COPD with emphysema Nebulized treatment while in the hospital, budesonide, 0.5 mg, Neb, BIDR GI -- Transaminitis with hyperbilirubinemia --> improving Likely from hypotension/hypoperfusion/ischemia or 'shock liver' - continue pantoprazole for stress ulcer prophylaxis, 40 mg, IV, daily - maintain NPO while on BiPap or CPAP - Phos, 2.7; enteral tube placed, will need enteral tube feedings RENAL/LYTES --S/p NAHUN Monitor BUN/creatinine Avoid nephrotoxic medications Strict ins and outs --Hyponatremia Mild, 132 <-- 131 Serum osmolality 271 () TSH within normal limit -- S/p HAGMA #resolved Delta-delta: Pure anion, Likely sec to lactic acidosis Monitor -- Continue with Burk catheter ENDO -- ICU hyperglycemia protocol HEME/ONC -- Hemoglobin stabilized, trending up Hgb, 11.0 No clear source of bleeding, Monitor H&H -- Thrombocytopenia -Plts, 120 <-- 104, continues to improve Continue to monitor w/ CBC ID -- Aspiration pneumonia Sputum culture growing light normal shaista Blood Cx (01/22/24), negative after 48 hrs Bronch Wash, Trach Tree bronchoscopy sample: neg gram stain/Cx pending, neg fungal hyphae/Cx pending BA lavage, RUL, bronchoscopy sample: neg gram stain/Cx pending, neg fungal hyphae/Cx pending, neg AFB smear/Cx pending Broadened antibiotics, Zosyn, 4500 mg, IV, q6hrs Prophylaxis VTE: Xarelto at home, heparin drip in ICU GI: Pantoprazole Lines: peripheral lines x 3 (#Right femoral TLC and arterial removed) Diet: Trophic enteral tube feeds Plan: In/out: + 680 mL, urine output 1960 mL 40 mg of Lasix, IV, YASIR, BID Patient's Hgb stable, 11.0 Heparin drip planned for restart for anticoagulation at 16:00 today CBC, AM, daily Discontinue amiodarone drip, paused metoprolol tartrate, 5 mg, IV, q4hrs Will restart metoprolol once pt's BP's are normal after sedation wears off Placed back on ventilator via trach (A/CMV), 50% O2, PEEP 8.0 cm Patient will likely need to go to rehab as he has significant generalized weakness Admission and Anticipated Discharge Date Admission Date: January 20, 2024 Supervising Physician Co-Signing Physician Notes Patient seen and examined. EMR reviewed. Discussed with overnight ZULEYMA as well as with family practice resident, bedside clinical nurse, and on multidisciplinary rounds. Agree with assessment plan as noted. Patient's status post tracheostomy placement today for refractory respiratory failure and inability to wean from BiPAP. Chest x-ray today demonstrates more pulmonary edema. Continue efforts at diuresis. Will add metolazone to his loop diuretic and try and target 1 L negative per day. Follow cultures. Antibiotics have been broadened yesterday. Fever curve appears better. White count remains normal. Initiate tube feeding with goals to advance as tolerated. Will wean off of sedation and once off, will work on therapy initially with dangling the patient and then progressing to getting him out of bed. Patient will require extensive rehab. Patient remains critically ill with significant probability of clinical deterioration and/or . A total of 40 minutes in critical care time exclusive of procedures was spent in evaluation management stabilization of this patient. Subjective Patient seen a few hours following his tracheostomy procedure this morning and was still heavily sedated and paralyzed from the vecuronium. Unable to a ppropriately assess by ROS, with a somewhat limited physical exam. Review of Systems Review of Systems: Unobtainable due to endotracheal tube and Unobtainable due to reduced consciousness Physical Exam Constitutional: well developed, well nourished and + mechanically ventilated; no acute distress Eyes: PERRL, conjunctivae normal, anicteric sclerae Neck: + tracheostomy present Respiratory: Auscultation: breath sounds present Cardiovascular: RRR, no murmur, no edema Gastrointestinal (Abdomen): normal bowel sounds, soft, nontender, no hepatosplenomegaly Neurologic: Cranial Nerves: PERRL Psychiatric: Orientation: + not alert Results & Data Results & Data Vital Signs (Past 12 Hours) Vital Signs Temp Pulse Resp BP Pulse Ox O2 Del Method FiO2 01/26/24 08:00 63 01/26/24 08:00 Mechanical Vent 01/26/24 07:55 50 01/26/24 07:45 37.6 C H 62 16 96 01/26/24 07:45 114/73 01/26/24 07:45 114/73 01/26/24 07:39 37.6 C H 63 16 97 01/26/24 07:37 124/75 01/26/24 07:27 119/75 01/26/24 07:27 119/75 01/26/24 07:27 37.7 C H 64 16 100 01/26/24 07:25 117/70 01/26/24 07:24 37.7 C H 64 16 100 01/26/24 07:23 118/71 01/26/24 07:23 118/71 01/26/24 07:23 118/71 01/26/24 07:21 37.7 C H 66 16 100 01/26/24 07:20 101/66 01/26/24 07:14 92/62 L 01/26/24 07:11 100/64 01/26/24 06:48 37.6 C H 63 23 99 01/26/24 06:45 99/67 L 01/26/24 06:45 99/67 L 01/26/24 06:36 37.6 C H 65 26 H 99 01/26/24 06:30 37.6 C H 66 24 99 01/26/24 06:30 98/66 L 01/26/24 06:15 96/66 L 01/26/24 06:12 37.7 C H 64 28 H 99 01/26/24 06:00 37.7 C H 63 25 H 100 01/26/24 06:00 104/69 01/26/24 06:00 104/69 01/26/24 05:45 37.7 C H 60 25 H 99 01/26/24 05:45 100/69 01/26/24 05:15 104/74 01/26/24 05:15 104/74 01/26/24 05:15 104/74 01/26/24 05:12 37.8 C H 61 32 H 100 01/26/24 05:00 37.8 C H 61 27 H 99 01/26/24 05:00 103/72 01/26/24 05:00 103/72 01/26/24 05:00 103/72 01/26/24 04:45 103/70 01/26/24 04:45 103/70 01/26/24 04:45 103/70 01/26/24 04:45 37.8 C H 62 29 H 99 01/26/24 04:36 37.8 C H 65 31 H 98 01/26/24 04:30 70/49 L 01/26/24 04:15 79/56 L 01/26/24 04:15 79/56 L 01/26/24 04:12 37.9 C H 65 24 98 01/26/24 04:00 40 01/26/24 04:00 93/65 L 01/26/24 04:00 93/65 L 01/26/24 03:48 37.9 C H 59 L 22 99 01/26/24 03:45 37.9 C H 59 L 25 H 99 01/26/24 03:45 103/66 01/26/24 03:45 103/66 01/26/24 03:45 103/66 01/26/24 03:39 38.0 C H 59 L 28 H 98 01/26/24 03:30 101/66 01/26/24 03:30 101/66 01/26/24 03:21 38.0 C H 60 24 98 01/26/24 03:20 62 19 97 40 01/26/24 03:18 38.0 C H 61 26 H 98 01/26/24 03:15 101/70 01/26/24 03:00 100/67 01/26/24 02:51 38.1 C H 61 18 98 01/26/24 02:45 38.1 C H 61 20 98 01/26/24 02:45 95/68 L 01/26/24 02:45 95/68 L 01/26/24 02:45 95/68 L 01/26/24 02:30 96/65 L 01/26/24 02:30 96/65 L 01/26/24 02:27 38.2 C H 60 16 99 01/26/24 02:15 38.2 C H 61 21 98 01/26/24 02:15 101/66 01/26/24 02:15 101/66 01/26/24 02:00 104/70 01/26/24 02:00 104/70 01/26/24 02:00 104/70 01/26/24 02:00 104/70 01/26/24 02:00 38.2 C H 61 16 98 01/26/24 01:45 38.3 C H 64 16 98 01/26/24 01:45 109/71 01/26/24 01:45 109/71 01/26/24 01:45 109/71 01/26/24 01:36 38.2 C H 63 44 H 98 01/26/24 01:30 109/76 01/26/24 01:30 109/76 01/26/24 01:27 38.2 C H 63 39 H 98 01/26/24 01:15 105/73 01/26/24 01:15 105/73 01/26/24 01:15 105/73 01/26/24 01:12 38.2 C H 62 25 H 98 01/26/24 01:00 103/70 01/26/24 01:00 103/70 01/26/24 01:00 103/70 01/26/24 01:00 103/70 01/26/24 01:00 38.2 C H 61 17 98 01/26/24 00:45 102/69 01/26/24 00:33 38.2 C H 61 18 97 01/26/24 00:30 97/67 L 01/26/24 00:30 97/67 L 01/26/24 00:27 38.2 C H 60 19 97 01/26/24 00:15 92/69 L 01/26/24 00:12 38.2 C H 60 35 H 97 01/26/24 00:00 89/67 L 01/26/24 00:00 89/67 L 01/26/24 00:00 40 01/26/24 00:00 60 01/25/24 23:57 61 19 98 40 01/25/24 23:54 38.1 C H 61 34 H 98 01/25/24 23:45 92/67 L 01/25/24 23:45 92/67 L 01/25/24 23:45 38.1 C H 61 26 H 98 01/25/24 23:30 95/68 L 01/25/24 23:27 38.1 C H 61 27 H 96 01/25/24 23:03 38.1 C H 62 32 H 98 01/25/24 23:00 95/65 L 01/25/24 23:00 95/65 L 01/25/24 22:48 38.2 C H 61 30 H 99 01/25/24 22:45 38.1 C H 61 28 H 99 01/25/24 22:45 90/64 L 01/25/24 22:45 90/64 L 01/25/24 22:36 38.1 C H 61 29 H 99 01/25/24 22:15 87/61 L 01/25/24 22:15 38.1 C H 61 24 100 01/25/24 22:00 84/62 L 01/25/24 22:00 84/62 L 01/25/24 22:00 84/62 L 01/25/24 22:00 38.1 C H 63 23 100 01/25/24 21:48 38.0 C H 63 23 100 01/25/24 21:45 86/62 L 01/25/24 21:45 86/62 L 01/25/24 21:45 86/62 L 01/25/24 21:30 80/56 L 01/25/24 21:24 38.0 C H 59 L 23 100 01/25/24 21:15 84/54 L 01/25/24 21:12 38.0 C H 60 22 100 01/25/24 21:03 38.0 C H 60 19 100 01/25/24 21:00 90/63 L 01/25/24 21:00 90/63 L 01/25/24 20:57 38.0 C H 60 18 100 01/25/24 20:45 104/68 01/25/24 20:45 104/68
--- NOTE | 2024-01-26 09:53 | XRay Report ---
XR chest 1V portable HISTORY: Follow up pulmonary edema. Shortness of breath. COMPARISON: Chest 01/25/2024. FINDINGS: Interval placement of a tracheostomy tube which appears in good position. Feeding tube is c urled within the stomach. No pneumothorax. The heart remains mildly enlarged. Perihilar interstitial thickening and hazy airspace opacities are again noted consistent with pulmonary edema. Small bilater al pleural effusions persists. No acute fractures. IMPRESSION: 1. Satisfactory support line placement. 2. Cardiomegaly with perihilar airspace opacities and small bilateral pleural effusions again noted. This favors moderate pulmonary edema. A superimposed pneumonia would be difficult to exclude. ACT 112: Negative or not required by law. Electronically signed by: Malik Fatima M.D. 01/26/2024 9:52 AM
[2024-01-26] MEDS: PEPTAMEN 1.5 CAL 1,000 ML BAG NG SCH (11:02)
[2024-01-26] MEDS: TUBE FEEDING WATER FLUSH NG SCH (11:03)
[2024-01-26] MEDS: HYDROmorphone INJ 0.5 MG/0.5 ML SYR IV PRN (11:19)
[2024-01-26] MEDS ORDERED: KETOROLAC TROMETHAMINE 15 MG/ML VIAL IV PRN (11:31)
--- NOTE | 2024-01-26 11:53 | Billing Data ---
Date of Service January 26, 2024 Coding Level of Care Code 01826 CRITICAL CARE
[2024-01-26] MEDS: metOLazone 5 MG TABLET PO SCH (12:18)
[2024-01-26] MEDS: METOPROLOL SUCC 25MG EXT REL TAB PO SCH (12:20)
[2024-01-26] MEDS: HEPARIN SODIUM/DEXTROSE 25,000 UNITS/500 ML BAG IV SCH (16:10)
[2024-01-26] MEDS: METOPROLOL TARTRATE 1 MG/ML VIAL IV STA ×2 (16:35→20:54)
[2024-01-26 18:33] LABS: BUN Creatinine Ratio 24.1 (10-20); Calcium 7.7 mg/dl (8.6-10.3); Creatinine Clr Calc Pharmacy 85.5 ml/min; Est GFR (African American) 112.4 ml/min; Magnesium 2.2 mg/dl (1.7-2.4); Potassium 3.8 mmol/L (3.5-5.1)
[2024-01-26] MEDS: POTASSIUM CHLORIDE 20 MEQ/15 ML UDC PO STA (20:54)
[2024-01-26] MEDS: ACETAMINOPHEN SUSP 325 MG/10.15 ML UDC PO PRN (22:48)
[2024-01-26] MEDS: IBUPROFEN SUSPENSION 100MG/5ML 120ML PO ONE (22:57)
[2024-01-26 23:41] LABS: ANTI-Xa, UFH(UnfractionatedHep 0.23 IU/ml (0.3-0.7)
[2024-01-27 04:47] LABS: BUN Creatinine Ratio 26.7 (10-20); Calcium 7.5 mg/dl (8.6-10.3); Creatinine Clr Calc Pharmacy 94.6 ml/min; Est GFR (African American) 117.2 ml/min; Est GFR (Non-African American) 101.1 ml/min; Magnesium 1.8 mg/dl (1.7-2.4); Phosphorus 2.1 mg/dl (2.5-4.9); Potassium 2.6 mmol/L (3.5-5.1)
[2024-01-27 05:01] LABS: Basophils # (auto) 0.04 K/uL (0.00-0.20); Basophils % (auto) 0.6 %; Eosinophils # (auto) 0.06 K/uL (0.00-0.50); Hematocrit (blood only) 33.7 % (42.0-52.0); Hemoglobin 12.2 g/dl (14.0-18.0); Immature Granulocytes # (auto) 0.11 K/uL (0.01-0.20); Immature Granulocytes % (auto) 1.7 %; Lymphocytes # (auto) 1.01 K/uL (1.20-3.40); Lymphocytes % (auto) 16.1 %; Mean Corpuscular Hemoglobin 35.3 pg (25.0-34.0); Mean Corpuscular Hgb Conc 36.2 g/dL (32.0-36.0); Mean Corpuscular Volume 97.4 fL (80.0-100.0); Mean Platelet Volume 11.6 fL (9.4-12.4); Monocytes # (auto) 0.38 K/uL (0.11-0.59); Neutrophils # (auto) 4.69 K/uL (1.40-6.50); Neutrophils % (auto) 74.6 %; Platelet Count 118 K/uL (130-400); RDW Coefficient of Variation 13.8 % (11.5-14.5); RDW Standard Deviation 49.1 fL (36.4-46.3); Red Blood Count 3.46 M/uL (4.70-6.10); White Blood Count 6.29 K/ul (4.8-10.8)
[2024-01-27] MEDS: POTASSIUM CHLORIDE / WTR 10 MEQ/100 ML PLCT IV SCH ×2 (05:19→16:00)
[2024-01-27] MEDS: POT PHOSPHATE MONOBASIC W/ SOD TAB PO SCH (05:19)
[2024-01-27] MEDS: MAGNESIUM SULFATE / D5W 1 GM/100 ML BAG IV SCH (05:20)
--- NOTE | 2024-01-27 06:03 | Electrocardiogram Report ---
Test Reason : Blood Pressure : */* mmHG Vent. Rate : 62 BPM Atrial Rate : 62 BPM P-R Int : 152 ms QRS Dur : 88 ms QT Int : 606 ms P-R-T Axes : 77 31 94 degrees QTcB Int : 615 ms Normal sinus rhythm Moderate voltage criteria for LVH, may be normal variant Septal infarct (cited on or before 20-Jan-2024) Prolonged QT Abnormal ECG When compared with ECG of 21-Jan-2024 14:29, Sinus rhythm has replaced Atrial fibrillation Vent. rate has decreased by 69 bpm Criteria for Inferior infarct are no longer Present Serial changes of evolving Septal infarct Present QT has lengthened Confirmed by Venkat Billingsley ([id number]) on 01/27/2024 6:03:03 AM Referred By: REFERRED SELF Confirmed By: Venkat Billingsley
--- NOTE | 2024-01-27 06:16 | Electrocardiogram Report ---
Test Reason : Blood Pressure : */* mmHG Vent. Rate : 63 BPM Atrial Rate : 63 BPM P-R Int : 146 ms QRS Dur : 84 ms QT Int : 550 ms P-R-T Axes : 58 33 83 degrees QTcB Int : 562 ms Normal sinus rhythm Low voltage QRS T wave abnormality, consider anterior ischemia Prolonged QT Abnormal ECG When compared with ECG of 25-Jan-2024 18:53, (unconfirmed) QT has shortened Confirmed by Venkat Billingsley ([id number]) on 01/27/2024 6:16:13 AM Referred By: REFERRED SELF Confirmed By: Venkat Billingsley
--- NOTE | 2024-01-27 07:57 | XRay Report ---
XR chest 1V portable CLINICAL HISTORY: eval lines/tubes/lung rodriguez COMPARISON STUDY: Chest CT January 20, 2024. Chest radiograph January 26, 2024. FINDINGS: Tracheostomy tube is in place. Feeding tube is coiled within the stomach. There is no pneum othorax. Small bilateral pleural effusions are again noted. Interstitial thickening persists. Bilater al airspace opacities have slightly improved. IMPRESSION: 1. Tracheostomy tube in place. Tip of feeding tube within the stomach. 2. Mild improvement in interstitial thickening and bilateral airspace opacities favors improving pulm onary edema. Superimposed pneumonia is considered less likely but would be difficult to exclude. ACT 112: Negative or not required by law. Electronically signed by: Wong Montenegro M.D. 01/27/2024 7:56 AM
--- NOTE | 2024-01-27 08:35 | Critical Care Progress Note ---
Date of Service January 27, 2024 Assessment & Plan (1) Aspiration pneumonia: (2) Cardiogenic shock: (3) Respiratory failure: (4) COPD with emphysema: (5) Bilirubinemia: (6) Transaminitis: (7) Atrial flutter with rapid ventricular response: (8) Acute on chronic HFrEF (heart failure with reduced ejection fraction): (9) Non-ischemic cardiomyopathy: Plan Plan Reason Critically Ill: 58-year-old male presented to hospital with complaints of shortness of breath. Sent to ICU for cardiac arrest, intubated Past medical history: Systolic CHF, A-fib on Xarelto, nonischemic cardiomyopathy, hypertension [facility] ICU: ; AAO x 3 (able to assess pt somewhat by asking yes/no questions) #Propofol weaned off currently --New onset seizure on the day of presentation to the ER No recurrence Etiology is not clear Got a loading dose of Keppra on 01/20/2024, discontinued afterwards TSH within normal limit CT of the head 01/20/2024 negative for any intracranial findings. EEG 01/22/2024: Mild abnormal study diffuse slowing, no epileptic activity noted Cardiac -- Cardiac arrest with cardiogenic shock Etiology is likely cardiac/systolic CHF - no pedal edema, crackles only at bases of post lungs - furosemide, 40 mg, IV, BID - # hold the metolazone, 10 mg, PO, QAM this morning --A-fib with RVR/Hypertension Rate controlled on home meds; amiodarone bolus in the ED --> restarted 01/22/2024 Got bolus of 300 mcg bolus 01/21/2024 followed by 150 mcg x 2 on 01/22/2024 #amiodarone drip, 0.5 mg/min --> stopped restart rate control/anti-hypertensive: metoprolol tartrate, 25 mg, NG, q6hrs #clonidine patch, 0.2 mg, TD, 24-hr discontinued #hydralazine, 10 mg, IV, q4hr, PRN (for SBP > 125 or DBP > 75) discontinued --Elevated troponins #resolved Likely type II RI Trended down, 165 <-- 239, then stopped following --Systolic CHF Decrease in EF from 40% to 25% 2D echo 01/20/2024: EF 20-25%, normal RV, mildly reduced RV function, PASP 40-45 mmHg, mild MR BNP, 3197 (01/26/24) Respiratory CT chest 01/20/2024 personally reviewed: Centrilobular emphysema appreciated bilaterally Interlobular thickening appreciated bilaterally Consolidative process appreciated bilateral lower lobes, Small bilateral pleural effusion, No significant mediastinal lymphadenopathy CXR, 01/26/24 Findings still consistent with pulmonary edema with possible superimposed pneumonia - procalcitonin, 1.00 <-- 1.21 <- 0.58; BNP, 3197 (baseline ~ 900); WBC, 6.3 -- VDRF For airway protection secondary to cardiac arrest Patient failed extubation and progression to Hi-Flow O2, Re-intubated, tracheostomy performed Continue with ventilatory support This morning a RASS, 0 --S/p Tracheostomy Patient weaned off of propofol, still has propofol on, PRN Ventilator settings: PS, 40% FiO2, PEEP 6.0 cm For pain s/p tracheostomy, start toradol, 15mg, IV, q6hrs, PRN --Hypoxic respiratory failure Likely secondary to pulmonary edema with possible aspiration Diuresis as tolerated --> monitor I's and O's - furosemide, 40 mg, IV, BID - #hold the metolazone, 10 mg, PO, QAM this morning - #stop antibiotic , Zosyn, 4500g, IV, q6hrs -- COPD with emphysema Nebulized treatment while in the hospital, budesonide, 0.5 mg, Neb, BIDR GI -- Transaminitis with hyperbilirubinemia --> improving Likely from hypotension/hypoperfusion/ischemia or 'shock liver' - continue pantoprazole for stress ulcer prophylaxis, 40 mg, IV, daily - maintain NPO while on BiPap or CPAP - Phos, 2.1 <-- 2.7; enteral tube placed, will need enteral tube feedings RENAL/LYTES --S/p NAHUN Monitor BUN/creatinine Avoid nephrotoxic medications Strict ins and outs --Hyponatremia Mild, 133 <-- 131 Serum osmolality 271 (), TSH within normal limit --Hypokalemia K, 2.6 <-- 3.8 likely secondary to initiation of metolazone yesterday Replete as needed w/ 80 mEq of KCl, IV and KPO4, oral tabs (8 mm PO4, 1.1 mEq K) Oral KCl, elixir, 40 mEq --Hypophosphatemia P, 2.1 <-- 2.7 Replete as needed w/ KPO4, oral tabs -- S/p HAGMA #resolved Delta-delta: Pure anion, Likely sec to lactic acidosis Monitor -- Continue with Burk catheter ENDO -- ICU hyperglycemia protocol HEME/ONC -- Hemoglobin stabilized, trending up Hgb, 12.2 <-- 11.0 No clear source of bleeding, Monitor H&H -- Thrombocytopenia -Plts, 118 <-- 120 <-- 104, continues to improve Continue to monitor w/ CBC ID -- Aspiration pneumonia Sputum culture growing light normal shaista Blood Cx (01/22/24), negative after 5 days Bronch Wash, Trach Tree bronchoscopy sample: neg gram stain/Cx pending, neg fungal hyphae/Cx pending BA lavage, RUL, bronchoscopy sample: neg gram stain/Cx pending, neg fungal hyphae/Cx pending, neg AFB smear/Cx pending Stop antibiotics, Zosyn, 4500 mg, IV, q6hrs Prophylaxis VTE: Xarelto at home, heparin drip in ICU GI: Pantoprazole Lines: peripheral lines x 3 (#Right femoral TLC and arterial removed) Diet: Trophic enteral tube feeds Plan: In/out: + 3250 mL, urine output 4950 mL 40 mg of Lasix, IV, YASIR, BID hold metolazone, 10 mg, PO, daily Patient's Hgb stable, 11.0 Heparin drip planned for restart for anticoagulation at 16:00 today CBC, AM, daily Discontinue amiodarone drip, paused metoprolol tartrate, 5 mg, IV, q4hrs Will restart metoprolol once pt's BP's are normal after sedation wears off metoprolol tartrate, 25 mg, NG, q6hr Placed back on ventilator via trach (PS), 40% O2, PEEP 7.0 cm Patient will likely need to go to rehab as he has significant generalized weakness Admission and Anticipated Discharge Date Admission Date: January 20, 2024 Supervising Physician Co-Signing Physician Notes Patient seen and examined. EMR reviewed. Discussed with overnight critical care ZULEYMA as well as with family practice resident and on multidisciplinary rounds as well as with hospitalist. Agree with assessment plan as noted. Will discontinue antibiotics at this point time as he is completed a full course and it is unclear what we are treating at this point time. Search for noninfectious etiologies of fever may be appropriate. He appears to be back in A-fib. Redosed amiodarone. May load with digoxin. Cardiology's been reengaged. Continue to wean ventilator as tolerated. PT and OT evaluations with dangling. Nutrition per dietary. Making slow progress. Will reassess over time. Subjective Patient is a 58 yo M w/ a PMHx of AFib w/ RVR, chronic HFrEF, nonischemic cardiomyopathy, HTN, NSTEMI, among other conditions. Patient appears comfortable, is not complaining of any pain, still endorses having diarrhea, and per nursing had 2 loose stools overnight and another four since this morning. Review of Systems Constitutional: no fever, no chills and no sweats Respiratory: no cough and no dyspnea Cardiovascular: no chest pain and no palpitations Gastrointestinal: + diarrhea/loose stools; no abdominal pa in, no nausea, no vomiting and no constipation Genitourinary: no urinary frequency Neurologic: no tingling, no numbness and no headache(s) Physical Exam Constitutional: well developed, well nourished, cooperative and + mechanically ventilated; no acute distress Eyes: PERRL, conjunctivae normal, anicteric sclerae Neck: + tracheostomy present Respiratory: normal respiratory effort Auscultation: breath sounds present Cardiovascular: RRR, no murmur, no edema Gastrointestinal (Abdomen): normal bowel sounds, soft, nontender, no hepatosplenomegaly Neurologic: Cranial Nerves: PERRL Psychiatric: A+Ox3, euthymic affect Results & Data Results & Data Vital Signs (Past 12 Hours) Vital Signs Temp Pulse Resp BP Pulse Ox O2 Del Method FiO2 01/27/24 07:35 105 H 26 H 95 40 01/27/24 07:30 104 H 24 93 40 01/27/24 06:03 37.5 C 101 H 25 H 93 01/27/24 06:00 103/70 01/27/24 06:00 103/70 01/27/24 06:00 103/70 01/27/24 06:00 103/70 01/27/24 05:36 37.5 C 102 H 24 114/72 92 01/27/24 05:27 37.5 C 107 H 21 92 01/27/24 05:26 113/59 L 01/27/24 05:26 113/59 L 01/27/24 05:24 37.5 C 103 H 18 92 01/27/24 05:15 37.5 C 95 H 20 92 01/27/24 05:12 37.5 C 101 H 20 92 01/27/24 05:00 84/71 L 01/27/24 05:00 84/71 L 01/27/24 04:45 37.5 C 101 H 23 90 01/27/24 04:30 37.6 C H 96 H 24 90 01/27/24 04:24 37.6 C H 109 H 25 H 89 L 01/27/24 04:07 21 40 01/27/24 04:06 37.7 C H 126 H 23 105/42 L 95 01/27/24 04:00 40 01/27/24 03:48 37.7 C H 105 H 22 97 01/27/24 03:15 37.7 C H 103 H 19 97 01/27/24 03:03 37.7 C H 95 H 20 97 01/27/24 03:00 109/77 01/27/24 02:57 37.7 C H 111 H 20 92 01/27/24 02:45 37.7 C H 112 H 18 94 01/27/24 02:30 109/71 01/27/24 02:30 109/71 01/27/24 02:30 109/71 01/27/24 02:30 37.7 C H 103 H 23 93 01/27/24 02:21 37.7 C H 104 H 20 96 01/27/24 02:09 37.8 C H 118 H 20 91 01/27/24 02:00 118/80 01/27/24 02:00 118/80 01/27/24 01:54 37.8 C H 104 H 21 125/91 92 01/27/24 01:32 105/71 01/27/24 01:32 105/71 01/27/24 01:32 105/71 01/27/24 01:30 37.9 C H 101 H 24 98 01/27/24 01:15 38.0 C H 103 H 19 98 01/27/24 01:00 38.0 C H 106 H 23 98 09/19/24 00:48 38.0 C H 115 H 32 H 96 01/27/24 00:45 104/84 01/27/24 00:45 104/84 01/27/24 00:42 38.1 C H 104 H 32 H 97 01/27/24 00:30 38.1 C H 107 H 21 105/71 96 01/27/24 00:15 38.1 C H 105 H 22 97 01/27/24 00:00 38.1 C H 113 H 22 100/60 96 50 01/27/24 00:00 50 01/26/24 23:45 115/61 96 Mechanical Vent 50 01/26/24 23:34 114 H 99/73 L 01/26/24 23:21 109 H 23 99 50 01/26/24 23:06 38.3 C H 120 H 24 122/93 100 01/26/24 23:06 124 H 01/26/24 22:51 38.3 C H 115 H 27 H 108/78 100 01/26/24 22:36 38.4 C H 125 H 24 100 01/26/24 22:33 38.4 C H 120 H 31 H 100 01/26/24 22:30 100/60 01/26/24 22:27 100/54 L 01/26/24 22:00 38.4 C H 128 H 29 H 82/63 L 100 Mechanical Vent 70 01/26/24 21:45 110/80 01/26/24 21:33 38.2 C H 110 H 21 101/63 100 01/26/24 21:24 79/49 L 01/26/24 21:16 73/46 L 01/26/24 21:02 38 C H 124 H 25 H 99/55 L 93 Mechanical Vent 70 01/26/24 21:00 79/54 L 01/26/24 21:00 123 H 24 95 70 01/26/24 20:54 128 H 109/68
[2024-01-27] MEDS: POTASSIUM CHLORIDE 20 MEQ/15 ML UDC PO STA (11:09)
[2024-01-27] MEDS: METOPROLOL TARTRATE 25 MG TAB NG SCH (11:10)
[2024-01-27] MEDS: acetaZOLAMIDE 250 MG in SYRINGE 0 ML IV ONE (11:10)
[2024-01-27] MEDS: LANSOPRAZOLE 30 MG SOLTAB NG SCH (11:11)
--- NOTE | 2024-01-27 12:52 | Hospitalist Progress Note ---
Date of Service January 27, 2024 Assessment & Plan (1) Respiratory failure: Plan: Patient was admitted to the hospital and found to be in respiratory failure CT scan of the chest showed evidence of likely aspiration pneumonia completed Zosyn He required intubation and ventilation, was extubated, However failed weaning trial Reintubation 01/25/2024. 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 recommendations and foley artist (2) Non-ischemic cardiomyopathy: Plan: cardiopulmonary resuscitation with cpr for decompensated cardiogenic shock Elevated troponin/atrial flutter with RVR/history of paroxysmal atrial fibrillation, nonischemic cardiomyopathy- amiodarone used to control, convert afib for possible seizure Keppra given but not continued has required pressors with cardiogenic shock, had been on dobutamine CT head without acute changes heparin gtt now restarted with afib/flutter. In past had thrombus in ventricle unclear if elevated troponin was nstemi or demand ischemia, now after cpr will be difficult to tell (3) History of alcohol abuse: Plan: unclear of last drink, no sign of withdrawal on thiamine also tobacco abuse Plan Continue to monitor in the ICU, disposition maybe challenging Admission and Anticipated Discharge Date Admission Date: January 20, 2024 Subjective pt is awake, he is having difficulty communicating, we did locate his eyeglasses but it is not clear if he cannot read or write, but we are trying to use a pointing chart he is tolerating pressure control will Physical Exam Physical Exam: Patient followed commands attempting to communicate remains Coarse breath sounds bilaterally Cardiac is rate controlled regular rate Abdomen was NABS and soft Results & Data Results & Data Vital Signs (Past 12 Hours) Vital Signs Temp Pulse Resp BP Pulse Ox O2 Del Method FiO2 01/27/24 12:00 40 01/27/24 09:25 75 01/27/24 09:00 108/75 01/27/24 09:00 99.1 F 79 33 H 108/75 100 01/27/24 08:24 99.1 F 119 H 26 H 91/68 L 91 01/27/24 08:00 Mechanical Vent 40 01/27/24 08:00 40 01/27/24 07:35 105 H 26 H 95 40 01/27/24 07:30 104 H 24 93 40 01/27/24 07:00 103 H 01/27/24 06:57 99.5 F 107 H 21 102/74 96 01/27/24 06:03 99.5 F 101 H 25 H 93 01/27/24 06:00 103/70 01/27/24 06:00 103/70 01/27/24 06:00 103/70 01/27/24 06:00 103/70 01/27/24 05:36 99.5 F 102 H 24 114/72 92 01/27/24 05:27 99.5 F 107 H 21 92 01/27/24 05:26 113/59 L 01/27/24 05:26 113/59 L 01/27/24 05:24 99.5 F 103 H 18 92 01/27/24 05:15 99.5 F 95 H 20 92 01/27/24 05:12 99.5 F 101 H 20 92 01/27/24 05:00 84/71 L 01/27/24 05:00 84/71 L 01/27/24 04:45 99.5 F 101 H 23 90 01/27/24 04:30 99.7 F H 96 H 24 90 01/27/24 04:24 99.7 F H 109 H 25 H 89 L 01/27/24 04:07 21 40 01/27/24 04:06 99.9 F H 126 H 23 105/42 L 95 01/27/24 04:00 40 01/27/24 03:48 99.9 F H 105 H 22 97 01/27/24 03:15 99.9 F H 103 H 19 97 01/27/24 03:03 99.9 F H 95 H 20 97 01/27/24 03:00 109/77 01/27/24 02:57 99.9 F H 111 H 20 92 01/27/24 02:45 99.9 F H 112 H 18 94 01/27/24 02:30 109/71 01/27/24 02:30 109/71 01/27/24 02:30 109/71 01/27/24 02:30 99.9 F H 103 H 23 93 01/27/24 02:21 99.9 F H 104 H 20 96 01/27/24 02:09 100.0 F H 118 H 20 91 01/27/24 02:00 118/80 01/27/24 02:00 118/80 01/27/24 01:54 100.0 F H 104 H 21 125/91 92 01/27/24 01:32 105/71 01/27/24 01:32 105/71 01/27/24 01:32 105/71 01/27/24 01:30 100.2 F H 101 H 24 98 01/27/24 01:15 100.4 F H 103 H 19 98 01/27/24 01:00 100.4 F H 106 H 23 98 01/27/24 00:48 100.4 F H 115 H 32 H 96 Laboratory Results review cbc review chemistry ICU repletion PG Care Time/CCT Total # of Minutes Spent Total Time Spent with Patient: Total time spent is greater than 50% in coordination of care (as documented) at patient's floor/unit and/or counseling patient: Coding Level of Care Code 62833 SUB INP/OBS CARE 3/50MIN Diagnoses Respiratory failure J96.90 Non-ischemic cardiomyopathy I42.8 History of alcohol abuse F10.11
[2024-01-27] MEDS ORDERED: 0.2 MICRON FILTER SET 1 EACH IV ONE (13:10)
[2024-01-27] MEDS: AMIODARONE / D5W 150 MG/100 ML BAG IV STA (13:54)
[2024-01-27 14:51] LABS: BUN Creatinine Ratio 26.3 (10-20); Calcium 8.1 mg/dl (8.6-10.3); Creatinine Clr Calc Pharmacy 113.1 ml/min; Est GFR (African American) 131.2 ml/min; Est GFR (Non-African American) 113.2 ml/min; Phosphorus 2.2 mg/dl (2.5-4.9); Potassium 2.6 mmol/L (3.5-5.1)
[2024-01-27] MEDS: PLASMA-LYTE A 500 ML IV ONE (15:56)
[2024-01-27] MEDS: POTASSIUM CHLORIDE 20 MEQ/15 ML UDC PO SCH (15:59)
--- NOTE | 2024-01-27 16:01 | Billing Data ---
Date of Service January 27, 2024 Coding Level of Care Code 14532 SUB INP/OBS CARE
[2024-01-27] MEDS: POTASSIUM CHLORIDE 10 MEQ in SODIUM CHLORIDE 0.9% 500 ML IV ONE (16:13)
[2024-01-27] MEDS: LACTATED RINGER'S 500 ML IV ONE (16:13)
[2024-01-27] MEDS: DIGOXIN 250 MCG in SYRINGE 9 ML IV SCH (16:19)
--- NOTE | 2024-01-27 16:39 | Cardiology Progress Note ---
Date of Service January 27, 2024 Assessment & Plan (1) Paroxysmal atrial fibrillation with RVR: (2) Hypotension: (3) Non-ischemic cardiomyopathy: (4) Respiratory failure: Plan Complex patient with recurrent paroxysmal atrial fibrillation and borderline hypotension. On 01/20/2024 he had similar presentation and upon reverting to sinus had a brief period of pulseless electrical activity requiring epinephrine. Tolerating tachycardia reasonably well, however agree with attempts to better rate control. Recommend dividing digoxin 500 mcg dose to 250 mcg followed by a period of monitoring before administering second dose if necessary. Agree with aggressive potassium repletion, hypokalemia likely a major precipitating factor. Could utilize IV or p.o. amiodarone to maintain sinus rhythm, unclear if these will be necessary once his potassium is replaced. Prior to receiving digoxin patient converted to sinus rhythm and BP became normotensive Could hold digoxin to avoid bradycardia, administer if recurrent atrial fibrillation with rapid ventricular sponsor. Repletion of potassium in addition of amiodarone to maintain sinus rhythm. Admission and Anticipated Discharge Date Admission Date: January 20, 2024 Subjective Around 11 AM this morning rhythm changed from sinus to atrial fibrillation with rapid ventricular response, he received a bolus of amiodarone but has persistent hypertension and mild hypotension. Patient awake and alert, denies chest pain, palpitations, or dyspnea. Continues on pressure support with tracheostomy. Physical Exam Physical Exam: Does not appear distressed. Temperature 100.8. BP 88/60 mmHg. Pulse 118 bpm and irregular. Respirations 32 but unlabored. Skin: no ecchymoses or generalized lesions. HEENT: unremarkable. Neck: JVP not obviously elevated, no carotid bruits. Lungs: Inspiratory wheeze without stridor, no expiratory wheezing. No accessory muscle use. Cardiac: Irregular/tachycardic rhythm without obvious murmur. Abdomen: benign. Extremities: no edema, readily palpable brachial, only intermittently palpable radial pulses. Feet cool with mildly delayed capillary refill. Neurologic: normal affect, nods to answer simple questions appropriately, grossly nonfocal. Results & Data Laboratory Results WBC 6.29, hemoglobin 12.2, platelet count 118,000. Sodium 131, potassium 2.6, chloride 88, CO2 32, BUN 15, creatinine 0.57. Magnesium 1.8. Diagnostic Findings Chest x-ray today showed mild improvement interstitial thickening and bilateral airspace opacities. PG Care Time/CCT Total # of Minutes Spent Total Time Spent with Patient: Total time spent is greater than 50% in coordination of care (as documented) at patient's floor/unit and/or counseling patient: Coding Level of Care Code 84442 SUB INP/OBS CARE 2/35MIN Diagnoses Paroxysmal atrial fibrillation with RVR I48.0 Hypotension I95.9 Hypotension type: unspecified hypotension type Non-ischemic cardiomyopathy I42.8 Respiratory failure J96.90 (2) Hypotension Hypotension type: unspecified hypotension type Qualified Code(s): I95.9 - Hypotension, unspecified
[2024-01-27] MEDS: AMIODARONE 200 MG TAB PO SCH (17:10)
[2024-01-27] MEDS: MAGNESIUM SULFATE / D5W 1 GM/100 ML BAG IV ONE (17:47)
[2024-01-27 17:50] LABS: Magnesium 1.9 mg/dl (1.7-2.4)
[2024-01-27] MEDS: BANATROL TF 60 ML LIQUID PKT PEG SCH (21:00)
[2024-01-27] MEDS: POTASSIUM CHLORIDE 20 MEQ/15 ML UDC NG SCH (21:01)
[2024-01-28 02:33] LABS: A calco-baum cmplx NotReported Not Detected (NotDetected); Bact fragilis Not Reported Not Detected (NotDetected); Blood Culture Id Panel PCR Panel Negative (NotDetected); C auris Not Reported Not Detected (NotDetected); Calbicans Not Reported Not Detected (NotDetected); Candida glabrata Not Reported Not Detected (NotDetected); Candida krusei Not Reported Not Detected (NotDetected); Cneoformans/gatti Not Reported Not Detected (NotDetected); Cparapsilosis Not Reported Not Detected (NotDetected); E cloacae compx Not Reported Not Detected (NotDetected); Efaecalis Not Reported Not Detected (NotDetected); Efaecium Not Reported Not Detected (NotDetected); Enterobacterales Not Reported Not Detected (NotDetected); Escherichia coli Not Reported Not Detected (NotDetected); H influenzae Not Reported Not Detected (NotDetected); K aerogenes Not Reported Not Detected (NotDetected); Koxytoca Not Reported Not Detected (NotDetected); Kpneumoniae grp Not Reported Not Detected (NotDetected); Lmonocyt Not Reported Not Detected (NotDetected); N meningitidis Not Reported Not Detected (NotDetected); P aeruginosa Not Reported Not Detected (NotDetected); Proteus spp Not Reported Not Detected (NotDetected); Salmonella spp Not Reported Not Detected (NotDetected); Staph lugdunensis Not Reported Not Detected (NotDetected); Staph spp. Not Reported Not Detected (NotDetected); Staphaureus Not Reported Not Detected (NotDetected); Staphepi Not Reported Not Detected (NotDetected); Stenmaltophilia Not Reported Not Detected (NotDetected); Strep agal(GrpB) Not Reported Not Detected (NotDetected); Strep pneum Not Reported Not Detected (NotDetected); Strep pyog (GrpA) Not Reported Not Detected (NotDetected); Strep spp Not Reported Not Detected (NotDetected)
[2024-01-28 04:59] LABS: Basophils # (auto) 0.05 K/uL (0.00-0.20); Basophils % (auto) 0.6 %; Eosinophils # (auto) 0.09 K/uL (0.00-0.50); Hematocrit (blood only) 40.8 % (42.0-52.0); Hemoglobin 14.3 g/dl (14.0-18.0); Immature Granulocytes # (auto) 0.28 K/uL (0.01-0.20); Immature Granulocytes % (auto) 3.1 %; Lymphocytes # (auto) 1.08 K/uL (1.20-3.40); Mean Corpuscular Hemoglobin 34.2 pg (25.0-34.0); Mean Corpuscular Volume 97.6 fL (80.0-100.0); Mean Platelet Volume 11.4 fL (9.4-12.4); Monocytes # (auto) 0.46 K/uL (0.11-0.59); Monocytes % (auto) 5.1 %; Neutrophils # (auto) 7.03 K/uL (1.40-6.50); Neutrophils % (auto) 78.2 %; Platelet Count 143 K/uL (130-400); RDW Coefficient of Variation 13.7 % (11.5-14.5); RDW Standard Deviation 49.3 fL (36.4-46.3); Red Blood Count 4.18 M/uL (4.70-6.10); White Blood Count 8.99 K/ul (4.8-10.8)
[2024-01-28] MEDS ORDERED: VANCOMYCIN CONSULT ACTIVE PRN (05:08)
[2024-01-28 05:25] LABS: ANTI-Xa, UFH(UnfractionatedHep 0.26 IU/ml (0.3-0.7)
[2024-01-28] MEDS: PIPERACILLIN/TAZOBACTAM 4.5 GM/100 ML BAG IV ONE (05:27)
[2024-01-28] MEDS: VANCOMYCIN HCL 1,250 MG in SODIUM CHLORIDE 0.9% 250 ML IV ONE (05:27)
[2024-01-28 06:50] LABS: Albumin Globulin Ratio 1.3 (0.9-2); Albumin Level 3.1 gm/dl (3.4-5.0); BUN Creatinine Ratio 20.3 (10-20); Bilirubin,Total 3.2 mg/dl (0.2-1.0); Calcium 8.2 mg/dl (8.6-10.3); Creatinine Clr Calc Pharmacy 107.7 ml/min; Est GFR (African American) 129.3 ml/min; Est GFR (Non-African American) 111.6 ml/min; Globulin 2.3 gm/dl (2.5-4.0); Magnesium 1.8 mg/dl (1.7-2.4); Phosphorus 2.1 mg/dl (2.5-4.9); Potassium 3.6 mmol/L (3.5-5.1); Total Protein 5.4 gm/dl (6.0-8.3)
--- NOTE | 2024-01-28 07:16 | XRay Report ---
KUB HISTORY: Status post placement of a feeding tube confirm coresafe tube feed placement COMPARISON: 01/25/2024 FINDINGS: Air-filled loops of large and small bowel. The lower abdomen is excluded from the field-of- view. Status post placement of a feeding tube with distal tip projected transversely in the expected location of the gastric body. The heart is enlarged. There are mixed interstitial and alveolar opacit ies of the lungs. IMPRESSION: Distal tip of feeding tube projects over the stomach. ACT 112: Negative or not required by law. The above report was generated using voice recognition software. It may contain grammatical, syntax o r spelling errors. Electronically signed by: Lamont Levi M.D. 01/28/2024 7:14 AM
[2024-01-28] MEDS: POT PHOSPHATE MONOBASIC W/ SOD TAB NG SCH (07:30)
--- NOTE | 2024-01-28 07:33 | XRay Report ---
XR chest 1V portable HISTORY: eval lines/tubes/lung rodriguez COMPARISON: Chest 01/27/2024. FINDINGS: No pneumothorax. There are trace bilateral pleural effusions. A feeding tube is curled with in the stomach. This remains unchanged. Tracheostomy tube appears in good position. Patchy bilateral airspace opacities most pronounced within the right lung persist. No acute fractures. IMPRESSION: 1. The tracheostomy tube remains in place. The feeding tube terminates in the stomach, unchanged. 2. No change in the patchy bilateral airspace opacities which may represent pulmonary edema or a pneu monitis. ACT 112: Negative or not required by law. Electronically signed by: aMlik Fatima M.D. 01/28/2024 7:32 AM
[2024-01-28] MEDS: MAGNESIUM SULFATE / D5W 1 GM/100 ML BAG IV SCH ×2 (07:46→20:53)
--- NOTE | 2024-01-28 08:17 | Critical Care Progress Note ---
Date of Service January 28, 2024 Assessment & Plan (1) Aspiration pneumonia: (2) Cardiogenic shock: (3) Respiratory failure: (4) COPD with emphysema: (5) Bilirubinemia: (6) Transaminitis: (7) Atrial flutter with rapid ventricular response: (8) Acute on chronic HFrEF (heart failure with reduced ejection fraction): (9) Non-ischemic cardiomyopathy: Plan Plan Reason Critically Ill: 58-year-old male presented to hospital with complaints of shortness of breath. Sent to ICU for cardiac arrest, intubated Past medical history: Systolic CHF, A-fib on Xarelto, nonischemic cardiomyopathy, hypertension Neuro [facility] ICU: ; AAO x 3 (able to assess pt somewhat by asking yes/no questions) #Propofol weaned off currently --New onset seizure on the day of presentation to the ER No recurrence Etiology is not clear Got a loading dose of Keppra on 01/20/2024, discontinued afterwards TSH within normal limit CT of the head 01/20/2024 negative for any intracranial findings. EEG 01/22/2024: Mild abnormal study diffuse slowing, no epileptic activity noted Cardiac -- Cardiac arrest with cardiogenic shock Etiology is likely cardiac/systolic CHF - no pedal edema, crackles only at bases of post lungs - furosemide, 40 mg, IV, BID - # hold the metolazone, 10 mg, PO, QAM this morning --A-fib with RVR/Hypertension Rate controlled on home meds; amiodarone bolus in the ED --> restarted 01/22/2024 Got bolus of 300 mcg bolus 01/21/2024 followed by 150 mcg x 2 on 01/22/2024 #amiodarone drip, 0.5 mg/min --> stopped restart rate control/anti-hypertensive: metoprolol tartrate, 25 mg, NG, q6hrs #clonidine patch, 0.2 mg, TD, 24-hr discontinued #hydralazine, 10 mg, IV, q4hr, PRN (for SBP > 125 or DBP > 75) discontinued --Elevated troponins #resolved Likely type II MD Trended down, 165 <-- 239, then stopped following --Systolic CHF Decrease in EF from 40% to 25% 2D echo 01/20/2024: EF 20-25%, normal RV, mildly reduced RV function, PASP 40-45 mmHg, mild MR BNP, 3197 (01/26/24) Respiratory CT chest 01/20/2024 personally reviewed: Centrilobular emphysema appreciated bilaterally Interlobular thickening appreciated bilaterally Consolidative process appreciated bilateral lower lobes, Small bilateral pleural effusion, No significant mediastinal lymphadenopathy CXR, 01/26/24 Findings still consistent with pulmonary edema with possible superimposed pneumonia - procalcitonin, 1.00 <-- 1.21 <- 0.58; BNP, 3197 (baseline ~ 900); WBC, 6.3 -- VDRF For airway protection secondary to cardiac arrest Patient failed extubation and progression to Hi-Flow O2, Re-intubated, tracheostomy performed Continue with ventilatory support This morning a RASS, 0 --S/p Tracheostomy Patient weaned off of propofol, still has propofol on, PRN Ventilator settings: PS, 40% FiO2, PEEP 6.0 cm For pain s/p tracheostomy, start toradol, 15mg, IV, q6hrs, PRN --Hypoxic respiratory failure Likely secondary to pulmonary edema with possible aspiration Diuresis as tolerated --> monitor I's and O's - furosemide, 40 mg, IV, BID - #hold the metolazone, 10 mg, PO, QAM this morning - restarted antibiotic , Zosyn, 4500g, IV, q6hrs - also added on Vancomycin, 1250 mg, IV, BID -- COPD with emphysema Nebulized treatment while in the hospital, budesonide, 0.5 mg, Neb, BIDR GI -- Transaminitis with hyperbilirubinemia --> improving Likely from hypotension/hypoperfusion/ischemia or 'shock liver' - continue pantoprazole for stress ulcer prophylaxis, 40 mg, IV, daily - maintain NPO while on BiPap or CPAP - Phos, 2.1 <-- 2.7; enteral tube placed, will need enteral tube feedings RENAL/LYTES --S/p NAHUN Monitor BUN/creatinine Avoid nephrotoxic medications Strict ins and outs --Hyponatremia Mild, 133 <-- 131 Serum osmolality 271 (), TSH within normal limit --Hypokalemia K, 3.6 <-- 2.6 <-- 3.8 Replete as needed w/ 80 mEq of KCl, IV and KPO4, oral tabs (8 mm PO4, 1.1 mEq K) Oral KCl, elixir, 40 mEq, BID --Hypophosphatemia P, 2.1 < 2.2 <-- 2.7 Replete as needed w/ KPO4, oral tabs --Low normal Mg/Hypomagnesemia Mg, 1.8 - MgSO4, 1g in 100 mLs (50 mL/hr), IV - Ca, 8.2; Ca(kimi), 8.9 -- S/p HAGMA #resolved Delta-delta: Pure anion, Likely sec to lactic acidosis Monitor -- Continue with Burk catheter ENDO -- ICU hyperglycemia protocol HEME/ONC -- Hemoglobin stabilized, trending up Hgb, 12.2 <-- 11.0 No clear source of bleeding, Monitor H&H -- Thrombocytopenia -Plts, 118 <-- 120 <-- 104, continues to improve Continue to monitor w/ CBC ID -- Aspiration pneumonia Sputum culture growing light normal shaista Blood Cx (01/22/24), negative after 5 days Bronch Wash, Trach Tree bronchoscopy sample: neg gram stain/Cx pending, neg fungal hyphae/Cx pending BA lavage, RUL, bronchoscopy sample: neg gram stain/Cx pending, neg fungal hyphae/Cx pending, neg AFB smear/Cx pending Stop antibiotics, Zosyn, 4500 mg, IV, q6hrs Prophylaxis VTE: Xarelto at home, heparin drip in ICU GI: Pantoprazole Lines: peripheral lines x 3 (#Right femoral TLC and arterial removed) Diet: Trophic enteral tube feeds Plan: In/out: + 3250 mL, urine output 4950 mL 40 mg of Lasix, IV, YASIR, BID hold metolazone, 10 mg, PO, daily Patient's Hgb stable, 11.0 Heparin drip planned for restart for anticoagulation at 16:00 today CBC, AM, daily Discontinue amiodarone drip, paused metoprolol tartrate, 5 mg, IV, q4hrs Will restart metoprolol once pt's BP's are normal after sedation wears off metoprolol tartrate, 25 mg, NG, q6hr Placed back on ventilator via trach (PS), 40% O2, PEEP 7.0 cm Patient will likely need to go to rehab as he has significant generalized weakness Admission and Anticipated Discharge Date Admission Date: January 20, 2024 Subjective Patient is a 58 yo M w/ a PMHx of Systolic CHF, A-fib (on Xarelto), nonischemic cardiomyopathy, HTN who continues to feel today much like he did yesterday, w/out subjective feeling of fever, chills, palpitations, increased heart rate. Only symptom that patient continues to endorse is diarrhea (but w/out AP/cramping and no N/V). Patient did not sleep well last night again. Review of Systems Constitutional: no fever, no chills and no sweats Respiratory: no cough and no dyspnea Cardiovascular: no chest pain and no palpitations Gastrointestinal: + diarrhea/loose stools; no abdominal pa in, no nausea, no vomiting and no constipation Genitourinary: no urinary frequency Neurologic: no tingling, no numbness and no headache(s) Physical Exam Constitutional: well developed, well nourished, cooperative and + mechanically ventilated; no acute distress Eyes: PERRL, conjunctivae normal, anicteric sclerae Neck: + tracheostomy present Respiratory: normal respiratory effort and able to speak in complete sentences Auscultation: breath sounds present Cardiovascular: RRR, no murmur, no edema Gastrointestinal (Abdomen): normal bowel sounds, soft, nontender, no hepatosplenomegaly Neurologic: Cranial Nerves: PERRL Psychiatric: A+Ox3, euthymic affect Orientation: + not alert Results & Data Results & Data Vital Signs (Past 12 Hours) Vital Signs Temp Pulse Pulse Resp BP Pulse Ox O2 Del Method 01/28/24 07:56 90 26 H 95 01/28/24 06:00 113/69 01/28/24 06:00 113/69 01/28/24 05:48 38.5 C H 98 H 20 98 01/28/24 05:06 38.4 C H 95 H 27 H 120/73 100 01/28/24 04:24 38.4 C H 96 H 26 H 98 01/28/24 04:16 132/81 01/28/24 04:06 38.3 C H 101 H 31 H 97 01/28/24 04:00 38.3 C H 95 H 25 H 98 01/28/24 04:00 01/28/24 03:45 102 H 44 H 93 01/28/24 03:30 38.2 C H 102 H 35 H 92 01/28/24 03:21 38.1 C H 97 H 40 H 93 01/28/24 03:12 38.1 C H 91 H 41 H 93 01/28/24 03:00 135/76 01/28/24 03:00 135/76 01/28/24 03:00 38.2 C H 93 H 15 92 01/28/24 02:57 38.2 C H 91 H 30 H 96 01/28/24 02:45 38.2 C H 87 24 97 01/28/24 02:36 38.1 C H 87 21 98 01/28/24 02:18 38.1 C H 89 31 H 97 01/28/24 02:00 38.1 C H 86 28 H 96 01/28/24 02:00 117/76 01/28/24 01:51 38.0 C H 86 26 H 95 01/28/24 01:45 38.0 C H 85 28 H 95 01/28/24 01:30 38.0 C H 90 33 H 96 01/28/24 01:27 38.0 C H 88 30 H 94 01/28/24 01:12 38.1 C H 87 33 H 94 01/28/24 01:00 123/87 01/28/24 00:57 38.2 C H 90 38 H 94 01/28/24 00:36 38.0 C H 86 28 H 98 01/28/24 00:00 37.9 C H 85 29 H 96 01/28/24 00:00 114/71 01/28/24 00:00 01/27/24 23:54 37.9 C H 86 30 H 96 01/27/24 23:45 38.0 C H 87 30 H 97 01/27/24 23:45 87 01/27/24 23:44 86 01/27/24 23:33 38.1 C H 86 28 H 97 01/27/24 23:18 38.0 C H 82 24 96 01/27/24 23:18 86 25 H 99 01/27/24 23:00 111/74 01/27/24 23:00 111/74 01/27/24 22:57 38.0 C H 85 28 H 96 01/27/24 22:48 38.0 C H 84 29 H 95 09/19/24 22:39 38.0 C H 85 27 H 95 01/27/24 22:21 38.0 C H 87 33 H 97 01/27/24 22:12 37.9 C H 84 24 100 01/27/24 22:00 37.9 C H 87 28 H 102/73 99 01/27/24 21:03 38.3 C H 78 21 105/57 L 98 01/27/24 20:33 81 26 H 99 01/27/24 20:30 38.2 C H 83 28 H 98/48 L 98 01/27/24 20:19 81 28 H 99 Mechanical Vent 01/27/24 20:09 38.2 C H 79 25 H 104/61 99 FiO2 01/28/24 07:56 50 01/28/24 06:00 01/28/24 06:00 01/28/24 05:48 01/28/24 05:06 01/28/24 04:24 01/28/24 04:16 01/28/24 04:06 01/28/24 04:00 01/28/24 04:00 50 01/28/24 03:45 50 01/28/24 03:30 01/28/24 03:21 01/28/24 03:12 01/28/24 03:00 01/28/24 03:00 01/28/24 03:00 01/28/24 02:57 01/28/24 02:45 01/28/24 02:36 01/28/24 02:18 01/28/24 02:00 01/28/24 02:00 01/28/24 01:51 01/28/24 01:45 01/28/24 01:30 01/28/24 01:27 01/28/24 01:12 01/28/24 01:00 01/28/24 00:57 01/28/24 00:36 01/28/24 00:00 01/28/24 00:00 01/28/24 00:00 40 01/27/24 23:54 01/27/24 23:45 01/27/24 23:45 01/27/24 23:44 01/27/24 23:33 01/27/24 23:18 01/27/24 23:18 40 01/27/24 23:00 01/27/24 23:00 01/27/24 22:57 01/27/24 22:48 01/27/24 22:39 01/27/24 22:21 01/27/24 22:12 01/27/24 22:00 01/27/24 21:03 01/27/24 20:33 40 01/27/24 20:30 01/27/24 20:19 01/27/24 20:09
--- NOTE | 2024-01-28 10:10 | Cardiology Progress Note ---
Date of Service January 28, 2024 Assessment & Plan (1) Paroxysmal atrial fibrillation with RVR: Plan He seems to have paroxysmal atrial fibrillation. Although there can be various triggers including low potassium the nature of atrial fibrillation is that it tends to recur so I suspect he will have episodes of atrial fibrillation going forward. For that reason I think rate control may be important, and trying to keep him in sinus rhythm with amiodarone would be helpful. The kinetics of amiodarone are such that his level will not be high for some weeks to months after oral amiodarone, especially on low dose such as 200 mg daily. I would strongly recommend going up to 400 mg daily at least, generally I would continue that for a month or more, and then if he has recurrence supplement it with intravenous. Additionally I would recommend rate control with digoxin, he has had loading doses and amiodarone does raise digoxin levels therapeutic efficacy so we probably want him on a relatively low dose. His kidney function is good, therefore I would expect that he would need about 0.125 mg daily and that it would take 3 to 5 days to reach steady state on a daily dose at which time the level should be drawn if he is on a daily dose. I would also recommend addition of AV mary blocking medications (beta-blockade if possible). That could be titrated as tolerated, the goal being metoprolol succinate 200 mg daily although I would certainly not start with high doses and if we are crushing tablets he may need tartrate. I agree with anticoagulation. Admission and Anticipated Discharge Date Admission Date: January 20, 2024 Subjective Patient is on a trach collar, therefore cannot talk, he is awake and alert however and indicates that he is having some some abdominal discomfort, seems to deny chest discomfort. Yesterday afternoon had 5 hours of rapid atrial fibrillation, associated with a low blood pressure, attributed to a low potassium. Physical Exam Physical Exam: Constitutional: Alert, cooperative and in no distress. HEENT: Unremarkable, he does have a trach in place Neck: No jugular venous distention, carotid pulses are normal and equal bilaterally without bruits. Pulmonary: Clear to auscultation bilaterally. Cardiac: Regular rhythm with no murmur, gallop or rub. Abdomen: Soft, nontender with normal bowel sounds. Extremities: No edema. Neurologic: No focal findings on limited exam Skin: No rash, ecchymoses or petechiae. Results & Data Vital Signs (Past 12 Hours) Vital Signs Temp Pulse Resp BP Pulse Ox FiO2 01/28/24 07:56 90 26 H 95 50 01/28/24 06:00 113/69 01/28/24 06:00 113/69 01/28/24 05:48 38.5 C H 98 H 20 98 01/28/24 05:06 38.4 C H 95 H 27 H 120/73 100 01/28/24 04:24 38.4 C H 96 H 26 H 98 01/28/24 04:16 132/81 01/28/24 04:06 38.3 C H 101 H 31 H 97 01/28/24 04:00 38.3 C H 95 H 25 H 98 01/28/24 04:00 50 01/28/24 03:45 102 H 44 H 93 50 01/28/24 03:30 38.2 C H 102 H 35 H 92 01/28/24 03:21 38.1 C H 97 H 40 H 93 01/28/24 03:12 38.1 C H 91 H 41 H 93 01/28/24 03:00 135/76 01/28/24 03:00 135/76 01/28/24 03:00 38.2 C H 93 H 15 92 01/28/24 02:57 38.2 C H 91 H 30 H 96 01/28/24 02:45 38.2 C H 87 24 97 01/28/24 02:36 38.1 C H 87 21 98 01/28/24 02:18 38.1 C H 89 31 H 97 01/28/24 02:00 38.1 C H 86 28 H 96 01/28/24 02:00 117/76 01/28/24 01:51 38.0 C H 86 26 H 95 01/28/24 01:45 38.0 C H 85 28 H 95 01/28/24 01:30 38.0 C H 90 33 H 96 01/28/24 01:27 38.0 C H 88 30 H 94 01/28/24 01:12 38.1 C H 87 33 H 94 01/28/24 01:00 123/87 01/28/24 00:57 38.2 C H 90 38 H 94 01/28/24 00:36 38.0 C H 86 28 H 98 01/28/24 00:00 37.9 C H 85 29 H 96 01/28/24 00:00 114/71 01/28/24 00:00 40 01/27/24 23:54 37.9 C H 86 30 H 96 01/27/24 23:45 38.0 C H 87 30 H 97 01/27/24 23:45 87 01/27/24 23:44 86 01/27/24 23:33 38.1 C H 86 28 H 97 01/27/24 23:18 38.0 C H 82 24 96 01/27/24 23:18 86 25 H 99 40 01/27/24 23:00 111/74 01/27/24 23:00 111/74 01/27/24 22:57 38.0 C H 85 28 H 96 01/27/24 22:48 38.0 C H 84 29 H 95 01/27/24 22:39 38.0 C H 85 27 H 95 01/27/24 22:21 38.0 C H 87 33 H 97 01/27/24 22:12 37.9 C H 84 24 100 Laboratory Results Cardiac Enzymes 01/28/24 Range/Units 04:31 AST 30 (13-39) U/L CBC 01/28/24 Range/Units 04:31 WBC 8.99 (4.8-10.8) K/ul RBC 4.18 L (4.70-6.10) M/uL Hgb 14.3 (14.0-18.0) g/dl Hct 40.8 L (42.0-52.0) % Plt Count 143 (130-400) K/uL Neut # (Auto) 7.03 H (1.40-6.50) K/uL Lymph # (Auto) 1.08 L (1.20-3.40) K/uL Hand # (Auto) 0.46 (0.11-0.59) K/uL Eos # (Auto) 0.09 (0.00-0.50) K/uL Baso # (Auto) 0.05 (0.00-0.20) K/uL Comprehensive Metabolic Panel 01/27/24 01/28/24 Range/Units 14:08 04:31 Sodium 131 L 129 L (136-145) mmol/L Potassium 2.6 L 3.6 D (3.5-5.1) mmol/L Chloride 88 L 95 L (98-107) mmol/L Carbon Dioxide 32 27 (21-32) mmol/L BUN 15 12 (6-23) mg/dl Creatinine 0.57 L 0.59 L (0.6-1.4) mg/dl Glucose 185 H 129 H (70-99(Fasting)) mg/dl Calcium 8.1 L 8.2 L (8.6-10.3) mg/dl AST 30 (13-39) U/L ALT 54 H (7-52) U/L Alkaline Phosphatase 84 (34-104) U/L Total Protein 5.4 L (6.0-8.3) gm/dl Albumin 3.1 L (3.4-5.0) gm/dl Intake and Output 01/27/24 01/28/24 01/28/24 22:59 06:59 14:59 Intake Total 1287 / 3988.760 1110.2 / 3988.760 375 / 375 Output Total 1600 / 5701 800 / 5701 750 / 750 Balance -313 / -1712.240 310.2 / -1712.240 -375 / -375 Intake: IV 1100 / 2734.760 616.2 / 2734.760 375 / 375 Amiodarone / D5w 150 mg In 100 100 / 100 ml @ 600 mls/hr IV NOW STA Rx#: [id number] Heparin Sodium/Dextrose 25,000 516.2 / 817.733 units In 500 ml @ 1,400 UNITS/ HR 28 mls/hr IV .[id number] [facility] Rx #:[id number] Magnesium Sulfate / D5w 1 gm In 100 / 100 100 / 100 100 ml @ 50 mls/hr IV Q2H [facility] Rx#:[id number] Piperacillin/Tazobactam 4.5 gm 100 / 100 In 100 ml @ 200 mls/hr IV ONE ONE Rx#:[id number] Plasma-Lyte A 500 ml @ 999 mls/ 500 / 500 hr IV .Q31M ONE Rx#:[id number] Potassium Chloride / Wtr 10 meq 400 / 400 In 100 ml @ 100 mls/hr IV Q1H [facility] Rx#:[id number] Vancomycin HCl 1,250 mg In 275 / 275 Sodium Chloride 0.9% 250 ml @ 200 mls/hr IV NOW ONE Rx#: [id number] Tube Feeding 67 / 804 494 / 804 Tube Irrigant 120 / 210 Output: Stool 400 / 400 Urine Amount (Catheter) 950 / 5000 800 / 5000 350 / 350 Burk/Indwelling 950 / 5000 800 / 5000 350 / 350 Drain Output 650 / 700 Rectum [place] Drainage Bag 650 / 700 Other: Weight 55.8 kg Weight Measurement Method Built in [facility] Diagnostic Findings Telemetry: Atrial fibrillation with a rapid heart rate yesterday afternoon from 1100 to 1600. Spontaneous conversion to sinus rhythm with a heart rate around the 100 bpm. PG Care Time/CCT Total # of Minutes Spent Total Time Spent with Patient: Total time spent is greater than 50% in coordination of care (as documented) at patient's floor/unit and/or counseling patient: Coding Level of Care Code 51464 SUB INP/OBS CARE 2/35MIN Diagnoses Paroxysmal atrial fibrillation with RVR I48.0
--- NOTE | 2024-01-28 11:26 | Pharmacy Report ---
Pharmacy PK ABX Note - Date of Service January 28, 2024 - Assessment and Plan Assessment * 58 year old M now receiving VANCOMYCIN + ZOSYN for treatment of possible bacteremia. * Thus far patient has received Zosyn 01/19-01/20 --> Unasyn 01/20-01/24-->Zosyn 01/24-01/26 for possible aspiration pneumonia. ABX were dc'd AM on 01/26 due to conc for possible c diff and no clear infectious source. Vancomycin + Zosyn initiated overnight in response to + BLCX * Pertinent microbiologic data includes: 01/25 BLCX growing gram + cocci in clusters however corresponding BioFire negative (organism could be a CoN Staph species not detected by panel such as s. rostri, s. muscae, s. lentus, s. fl ueretti or s. equorum); no growth in prior bronch washings or sputum; c diff was negative; negative MRSA nasal swab 01/19 * Day # 1 of vancomycin therapy. Plan Vancomycin * Loading dose: 1250 mg IV x 1 * Maintenance dose: 1250 mg IV every 12 hours - next dose at 1200 today (given sooner to quickly achieve therapeutic targets) * Regimen is predicted to achieve target AUC/SVITLANA of 400-600 mg/L.hr * Random level ordered for: 01/28 Pharmacy will continue to follow and will adjust dose/frequency as necessary. Thank you. Pharmacy has transitioned to AUC monitoring for vancomycin. AUC/SVITLANA is the preferred PK/PD target and is associated with decreased risk of nephrotoxicity compared to traditional trough targets.
[2024-01-28] MEDS: PIPERACILLIN/TAZOBACTAM 4.5 GM/100 ML BAG IV SCH (11:37)
[2024-01-28] MEDS: POTASSIUM CHLORIDE 20 MEQ/15 ML UDC NG SCH ×2 (12:00→20:52)
[2024-01-28 12:23] LABS: ANTI-Xa, UFH(UnfractionatedHep 0.29 IU/ml (0.3-0.7)
--- NOTE | 2024-01-28 12:52 | Critical Care Progress Note ---
Date of Service January 28, 2024 Assessment & Plan (1) Aspiration pneumonia: (2) Cardiogenic shock: (3) Respiratory failure: (4) COPD with emphysema: (5) Bilirubinemia: (6) Transaminitis: (7) Atrial flutter with rapid ventricular response: (8) Acute on chronic HFrEF (heart failure with reduced ejection fraction): (9) Non-ischemic cardiomyopathy: Plan Impression: 58-year-old male status postcardiac arrest with history of heart failure and atrial fibrillation medical noncompliance. He was extubated but then required noninvasive positive pressure ventilation and eventually reintubation and subsequent percutaneous dilatation of tracheostomy placement. 24-hour events: Patient developed atrial fibrillation with rapid ventricular response. This was associated with low blood pressure and required Denzel- Synephrine. He was loaded on digoxin in conjunction with amiodarone and his beta-joao which resulted in conversion into normal sinus rhythm. He remains on a heparin infusion. He is currently on pressure support ventilation this morning and improving. Recommendations: Neuro: Off sedation. Analgesia appears adequate. Continue physical therapy and Occupational Therapy for rehab. No obvious sequelae from the patient's prior arrest Cardiac: Status post cardiac arrest: Improving with supportive therapy. Pulmonary edema which has responded to aggressive diuresis. Atrial fibrillation with rapid ventricular response responding to digoxin amiodarone beta-blockers and anticoagulation. Continue for now. Discussed with cardiology. Respiratory: Respiratory failure: Secondary to pulmonary edema. Continue diuresis and weaning oxygen as tolerated. Will pursue trach collar trials as clinically tolerated. Continue routine trach care. Reported history of COPD but PFTs not available. No evidence of bronchospasm. No indication for steroids. GI: Currently on diet and tolerating reasonably well. Sent for C. difficile, negative. Continue PPI and advance tube feedings as tolerated. RENAL/LYTES: Mild hyponatremia slightly worse. Studies previously unremarkable. May be hypovolemic hyponatremia. Potassium is starting to be repleted. Will give an additional 2 g of mag today. Replete Phos and calcium as well. Remains slightly hypervolemic and will continue attempts at diuresis as tolerated. Did receive 1 dose of Diamox yesterday. Intake and output still shows negative about 1.5 L. : Burk catheter in place for tracking intake and output. ENDO: Glycemic control per protocol HEME/ONC: No current issues ID: Fever curve remains elevated. The patient has completed over 10 days of antimicrobial therapy including Zosyn, Unasyn, and vancomycin. Cultures have remained negative to date. 1 blood culture was positive from yesterday but PCR shows this likely to be coag negative staph and not likely pathogenic. Will repeat blood cultures today. Patient was reinitiated on antibiotics in the form of vancomycin and Zosyn last evening. These will be discontinued until I have a better idea of what we are treating. May need to look for noninfectious etiologies of fever as his white blood cell count and lactate of been normal. Will recheck sputum culture. Prophylaxis VTE: Heparin infusion GI: Pantoprazole Lines: peripheral lines x 3 Diet: Full strength enteral tube feeds Admission and Anticipated Discharge Date Admission Date: January 20, 2024 Subjective Patient seen and examined. EMR reviewed. Discussed on multidisciplinary rounds and with overnight critical care ZULEYMA as well as with bedside ICU nurse. The patient is awake alert and communicative this morning. He is on pressure support. He is not experiencing any significant complaints and specifically denies any chest pain, pressure, palpitations, nausea, or vomiting. No abdominal pain. Review of Systems Review of Systems: All systems reviewed & are unremarkable except as noted in Subjective Physical Exam Constitutional: well developed, well nourished, cooperative and + mechanically ventilated; no acute distress Neck: Trach site clean dry and intact Respiratory: no respiratory distress, no labored breathing and not tachypneic Auscultation: + diminished lung sounds and + rhonchi; no crackles and no wheezes Cardiovascular: RRR, no murmur, no edema Gastrointestinal (Abdomen): normal bowel sounds, soft, nontender, no hepatosplenomegaly Skin: No rashes or lesions Results & Data Results & Data Vital Signs (Past 12 Hours) Vital Signs Temp Pulse Resp BP Pulse Ox FiO2 01/28/24 10:41 100 H 35 H 97 50 01/28/24 07:56 90 26 H 95 50 01/28/24 06:00 113/69 01/28/24 06:00 113/69 01/28/24 05:48 38.5 C H 98 H 20 98 01/28/24 05:06 38.4 C H 95 H 27 H 120/73 100 01/28/24 04:24 38.4 C H 96 H 26 H 98 01/28/24 04:16 132/81 01/28/24 04:06 38.3 C H 101 H 31 H 97 01/28/24 04:00 38.3 C H 95 H 25 H 98 01/28/24 04:00 50 01/28/24 03:45 102 H 44 H 93 50 01/28/24 03:30 38.2 C H 102 H 35 H 92 01/28/24 03:21 38.1 C H 97 H 40 H 93 01/28/24 03:12 38.1 C H 91 H 41 H 93 01/28/24 03:00 135/76 01/28/24 03:00 135/76 01/28/24 03:00 38.2 C H 93 H 15 92 01/28/24 02:57 38.2 C H 91 H 30 H 96 01/28/24 02:45 38.2 C H 87 24 97 01/28/24 02:36 38.1 C H 87 21 98 01/28/24 02:18 38.1 C H 89 31 H 97 01/28/24 02:00 38.1 C H 86 28 H 96 01/28/24 02:00 117/76 01/28/24 01:51 38.0 C H 86 26 H 95 01/28/24 01:45 38.0 C H 85 28 H 95 01/28/24 01:30 38.0 C H 90 33 H 96 01/28/24 01:27 38.0 C H 88 30 H 94 01/28/24 01:12 38.1 C H 87 33 H 94 01/28/24 01:00 123/87 01/28/24 00:57 38.2 C H 90 38 H 94 Critical Care Results & Data Vital Signs (Past 12 Hours) Vital Signs Temp Pulse Resp BP Pulse Ox FiO2 01/28/24 10:41 100 H 35 H 97 50 01/28/24 07:56 90 26 H 95 50 01/28/24 06:00 113/69 01/28/24 06:00 113/69 01/28/24 05:48 38.5 C H 98 H 20 98 01/28/24 05:06 38.4 C H 95 H 27 H 120/73 100 01/28/24 04:24 38.4 C H 96 H 26 H 98 01/28/24 04:16 132/81 01/28/24 04:06 38.3 C H 101 H 31 H 97 01/28/24 04:00 38.3 C H 95 H 25 H 98 01/28/24 04:00 50 01/28/24 03:45 102 H 44 H 93 50 01/28/24 03:30 38.2 C H 102 H 35 H 92 01/28/24 03:21 38.1 C H 97 H 40 H 93 01/28/24 03:12 38.1 C H 91 H 41 H 93 01/28/24 03:00 135/76 01/28/24 03:00 135/76 01/28/24 03:00 38.2 C H 93 H 15 92 01/28/24 02:57 38.2 C H 91 H 30 H 96 01/28/24 02:45 38.2 C H 87 24 97 01/28/24 02:36 38.1 C H 87 21 98 01/28/24 02:18 38.1 C H 89 31 H 97 01/28/24 02:00 38.1 C H 86 28 H 96 01/28/24 02:00 117/76 01/28/24 01:51 38.0 C H 86 26 H 95 01/28/24 01:45 38.0 C H 85 28 H 95 01/28/24 01:30 38.0 C H 90 33 H 96 01/28/24 01:27 38.0 C H 88 30 H 94 01/28/24 01:12 38.1 C H 87 33 H 94 01/28/24 01:00 123/87 01/28/24 00:57 38.2 C H 90 38 H 94 Lab & Micro Results (Past 24 Hours) RBC 4.18 M/uL (4.70-6.10) L 01/28/24 WBC 8.99 K/ul (4.8-10.8) 01/28/24 Hgb 14.3 g/dl (14.0-18.0) 01/28/24 Hct 40.8 % (42.0-52.0) L 01/28/24 MCV 97.6 fL (80.0-100.0) 01/28/24 MCH 34.2 pg (25.0-34.0) H 01/28/24 MCHC 35.0 g/dL (32.0-36.0) 01/28/24 RDW Standard Deviation 49.3 fL (36.4-46.3) H 01/28/24 RDW Coefficient of Variation 13.7 % (11.5-14.5) 01/28/24 Plt Count 143 K/uL (130-400) 01/28/24 MPV 11.4 fL (9.4-12.4) 01/28/24 Neutrophils (%) (Auto) 78.2 % 01/28/24 Lymphocytes (%) (Auto) 12.0 % 01/28/24 Monocytes # (Auto) 0.46 K/uL (0.11-0.59) 01/28/24 Eosinophils # (Auto) 0.09 K/uL (0.00-0.50) 01/28/24 Immature Granulocyte % (Auto) 3.1 % 01/28/24 Neutrophils # (Auto) 7.03 K/uL (1.40-6.50) H 01/28/24 Lymphocytes # (Auto) 1.08 K/uL (1.20-3.40) L 01/28/24 Monocytes # (Auto) 0.46 K/uL (0.11-0.59) 01/28/24 Eosinophils # (Auto) 0.09 K/uL (0.00-0.50) 01/28/24 Basophils # (Auto) 0.05 K/uL (0.00-0.20) 01/28/24 Immature Granulocyte # (Auto) 0.28 K/uL (0.01-0.20) H 01/27 Na 129 mmol/L (136-145) L 01/28/24 K 3.6 mmol/L (3.5-5.1) 01/28/24 Cl 95 mmol/L (98-107) L 01/28/24 CO2 27 mmol/L (21-32) 01/28/24 Anion Gap 7 (3-11) 01/28/24 BUN 12 mg/dl (6-23) 01/28/24 Creatinine 0.59 mg/dl (0.6-1.4) L 01/28/24 Estimated GFR ( Amer) 129.3 ml/min 01/28/24 Estimated GFR (Non-Af Amer) 111.6 ml/min 01/28/24 BUN/Creatinine Ratio 20.3 (10-20) H 01/28/24 Glu 129 mg/dl (70-99(Fasting)) H 01/28/24 Ca 8.2 mg/dl (8.6-10.3) L 01/28/24 Phosphorus Level 2.1 mg/dl (2.5-4.9) L 01/28/24 Total Bilirubin 3.2 mg/dl (0.2-1.0) H 01/28/24 AST 30 U/L (13-39) 01/28/24 ALT 54 U/L (7-52) H 01/28/24 Alkaline Phosphatase 84 U/L (34-104) 01/28/24 TP 5.4 gm/dl (6.0-8.3) L 01/28/24 Albumin 3.1 gm/dl (3.4-5.0) L 01/28/24 Globulin 2.3 gm/dl (2.5-4.0) L 01/28/24 Albumin/Globulin Ratio 1.3 (0.9-2) 01/28/24 Mg 1.8 mg/dl (1.7-2.4) 01/28/24 04:31 Calcium Level 8.2 mg/dl (8.6-10.3) L 01/28/24 04:31 Microbiology 01/26/24 23:07 Aerobic Blood Culture - Preliminary Blood Gram positive cocci clusters Anaerobic Blood Culture - Final Diagnostic Findings (Past 24 Hours) KUB X-Ray 01/27/24 22:35 KUB HISTORY: Status post placement of a feeding tube confirm coresafe tube feed placement COMPARISON: 01/25/2024 FINDINGS: Air-filled loops of large and small bowel. The lower abdomen is excluded from the [id number]. Status post placement of a feeding tube with distal tip projected transversely in the expected location of the gastric body. The heart is enlarged. There are mixed interstitial and alveolar opacities of the lungs. IMPRESSION: Distal tip of feeding tube projects over the stomach. ACT 112: Negative or not required by law. The above report was generated using voice recognition software. It may contain grammatical, syntax or spelling errors. Electronically signed by: Lamont Levi M.D. 01/28/2024 7:14 AM Chest X-Ray 01/28/24 06:00 XR chest 1V portable HISTORY: eval lines/tubes/lung rodriguez COMPARISON: Chest 01/27/2024. FINDINGS: No pneumothorax. There are trace bilateral pleural effusions. A feeding tube is curled within the stomach. This remains unchanged. Tracheostomy tube appears in good position. Patchy bilateral airspace opacities most pronounced within the right lung persist. No acute fractures. IMPRESSION: 1. The tracheostomy tube remains in place. The feeding tube terminates in the stomach, unchanged. 2. No change in the patchy bilateral airspace opacities which may represent pulmonary edema or a pneumonitis. ACT 112: Negative or not required by law. Electronically signed by: Malik Fatima M.D. 01/28/2024 7:32 AM I & O Totals 24 Hours 01/27/24 01/28/24 01/29/24 06:59 06:59 06:59 Intake Total 1242.005 / 9560.604 8638.760 / 3988.760 375 / 375 Output Total 5051 / 5051 5701 / 5701 750 / 750 Balance -3808.995 / -3808.995 -1712.240 / -1712.240 -375 / -375 Cumulative 01/20/24 05:01 thru 01/28/24 09:46 Intake Total 06737.856 Output Total 74556 Balance -3175.144 RT Ventilator Mngmt (Last Documented) Ventilator Ordered Settings Ventilator Support Mode CPAP 01/28/24 10:41 Respiratory Rate 35 01/28/24 10:41 Ventilator Tidal Volume 450 01/28/24 04:00 Setting Minute Ventilation 20 01/28/24 10:41 Ventilator Positive Pressure 7 01/28/24 10:41 Support Setting Positive End Expiratory 6 01/28/24 10:41 Pressure Fraction of Inspired Oxygen 50 01/28/24 10:41 Peak Inspiratory Flow 60 01/22/24 15:10 Machine Comment patient placed on CPAP with PS 01/23/24 09:[address] Giordano Ventilator - PT Measurements Respiratory Rate 35 Exhaled Tidal Volume 676 Minute Ventilation 20 Peak Inspiratory Airway 15 Pressure Mean Airway Pressure 30 Plateau Pressure 14.2 Respiratory Cycle Inspiratory: 1:1.2 Expiratory Ratio Inspiratory Phase Time 0.63 End-Tidal CO2 25 Static Lung Compliance 76.59 Dynamic Lung Compliance 75.11 Normal Static Lung Compliance 49.00 Patient Measurements Comment pt placed on full vent. pt had increased work of breathing, respiratory rate, and decreased spo2 during bath. switched to previous AC vent setting. will continue to monitor. Coding Level of Care Code 30606 SUB INP/OBS CARE 50MIN Diagnoses Aspiration pneumonia J69.0 Cardiogenic shock R57.0 Respiratory failure J96.90 COPD with emphysema J43.9 Bilirubinemia E80.6 Transaminitis R74.01 Atrial flutter with rapid ventricular response I48.92 Acute on chronic HFrEF (heart failure with reduced ejection fraction) I50.23 Non-ischemic cardiomyopathy I42.8
[2024-01-28] MEDS: METOPROLOL TARTRATE 25 MG TAB NG SCH (13:38)
[2024-01-28] MEDS: FUROSEMIDE INJ 20 MG/2 ML VIAL IV SCH (13:40)
[2024-01-28] MEDS: VANCOMYCIN HCL 1,250 MG in SODIUM CHLORIDE 0.9% 250 ML IV SCH (13:56)
--- NOTE | 2024-01-28 14:16 | Hospitalist Progress Note ---
Date of Service January 28, 2024 Assessment & Plan (1) Respiratory failure: Plan: Patient was admitted to the hospital and found to be in respiratory failure CT scan of the chest showed evidence of likely aspiration pneumonia completed Zosyn He required intubation and ventilation, was extubated, However failed weaning trial Reintubation 01/25/2024. 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 In past had thrombus in ventricle Monitor I/O, daily weight (4) History of alcohol abuse: Plan: unclear of last drink, no sign of withdrawal on thiamine also tobacco abuse (5) Physical deconditioning: Plan: Continue physical therapy (6) Acute on chronic HFrEF (heart failure with reduced ejection fraction): Plan Continue to monitor in the ICU, disposition maybe challenging Admission and Anticipated Discharge Date Admission Date: January 20, 2024 Subjective Patient seen and examined, awake and alert well-oriented, status post tracheostomy Review of Systems Review of Systems: All systems reviewed are negative, apart from the ones contained in the history. Physical Exam Physical Exam: The patient is awake, alert and oriented 3, In mild respiratory distress, using accessory muscles to breathe HEENT--PERRL, EOMI, mucous membranes and oropharynx mildly dry Neck--trach in situ Heart--normal S1 and S2. No murmurs, rubs or gallops. Lungs--clear bilaterally, no respiratory distress, no accessory muscle use. Abdomen--normal bowel sounds and soft. Extremities--no cyanosis or clubbing. No edema. Dermatologic--normal skin turgor, normal color, no abnormal lymph nodes, no rash. Neurologic--cranial nerves II through XII grossly intact. Rheumatologic--normal range of motion. Psychiatric--normal affect. Results & Data Results & Data Vital Signs (Past 12 Hours) Vital Signs Temp Pulse Resp BP Pulse Ox FiO2 09/20/24 10:41 100 H 35 H 97 50 01/28/24 07:56 90 26 H 95 50 01/28/24 06:00 113/69 01/28/24 06:00 113/69 01/28/24 05:48 101.3 F H 98 H 20 98 01/28/24 05:06 101.1 F H 95 H 27 H 120/73 100 01/28/24 04:24 101.1 F H 96 H 26 H 98 01/28/24 04:16 132/81 01/28/24 04:06 100.9 F H 101 H 31 H 97 01/28/24 04:00 100.9 F H 95 H 25 H 98 01/28/24 04:00 50 01/28/24 03:45 102 H 44 H 93 50 01/28/24 03:30 100.8 F H 102 H 35 H 92 01/28/24 03:21 100.6 F H 97 H 40 H 93 01/28/24 03:12 100.6 F H 91 H 41 H 93 01/28/24 03:00 135/76 01/28/24 03:00 135/76 01/28/24 03:00 100.8 F H 93 H 15 92 01/28/24 02:57 100.8 F H 91 H 30 H 96 01/28/24 02:45 100.8 F H 87 24 97 01/28/24 02:36 100.6 F H 87 21 98 01/28/24 02:18 100.6 F H 89 31 H 97 PG Care Time/CCT Total # of Minutes Spent Total Time Spent with Patient: Total time spent is greater than 50% in coordination of care (as documented) at patient's floor/unit and/or counseling patient: Coding Level of Care Code 40228 SUB INP/OBS CARE 2/35MIN Diagnoses Respiratory failure J96.90 Atrial fibrillation with rapid ventricular response I48.91 Non-ischemic cardiomyopathy I42.8 History of alcohol abuse F10.11 Physical deconditioning R53.81 Acute on chronic HFrEF (heart failure with reduced ejection fraction) I50.23 Time Spent (min) 35
--- NOTE | 2024-01-28 15:26 | Pharmacy Report ---
Pharmacy Glycemic Sign Off Nt - Date of Service January 28, 2024 - Assessment & Plan ASSESSMENT: * Pharmacy was consulted by Dr Giordano on 01/19 for glycemic control and to write orders per [facility] inpatient glycemic control protocol. * Patient has not been requiring SQ insulin to maintain adequate glycemic control despite significant stressors and titration of enteral feeds * BSGs ranging 102 - 166 mg/dl over last 48 hours and no SQ insulin given * Do not anticipate further changes in patient status that would quickly deteriorate glycemic control * Please see recommendations for outpatient antidiabetic regimen below. PLAN FOR INPATIENT GLYCEMIC CONTROL: No changes needed to current regimen. * Continue NovoLog per scale Q6hrs * Goal range = 110 - 180 mg/dl * CF = 20 mg/dl/unit * CR = none at this time (could consider adding a CR in the future if a more Carb dense enteral feeding is used leading to hyperglycemia) * Pharmacy is signing off of glycemic consult and will no longer be making adjustments to inpatient regimen. Please feel free to re-consult if needed. Thank you.
[2024-01-28] MEDS: DIGOXIN 0.125 MG/2.5 ML UDP PO SCH (18:47)
[2024-01-28 19:48] LABS: ANTI-Xa, UFH(UnfractionatedHep 0.29 IU/ml (0.3-0.7); BUN Creatinine Ratio 20.7 (10-20); Calcium 8.1 mg/dl (8.6-10.3); Creatinine Clr Calc Pharmacy 109.6 ml/min; Est GFR (African American) 130.3 ml/min; Est GFR (Non-African American) 112.4 ml/min; Magnesium 1.6 mg/dl (1.7-2.4); Potassium 3.2 mmol/L (3.5-5.1)
[2024-01-28] MEDS: ICU ELECTROLYTE REPLACEMENT PROTOCOL SCH (20:06)
[2024-01-28] MEDS: MoRPHine SULFATE 2 MG/ML CARP IV STA (23:38)
[2024-01-29 02:58] LABS: ANTI-Xa, UFH(UnfractionatedHep 0.41 IU/ml (0.3-0.7)
[2024-01-29 06:34] LABS: Basophils # (auto) 0.06 K/uL (0.00-0.20); Basophils % (auto) 0.5 %; Eosinophils % (auto) 0.9 %; Hematocrit (blood only) 35.9 % (42.0-52.0); Hemoglobin 12.4 g/dl (14.0-18.0); Immature Granulocytes # (auto) 0.45 K/uL (0.01-0.20); Immature Granulocytes % (auto) 3.9 %; Lymphocytes # (auto) 0.89 K/uL (1.20-3.40); Lymphocytes % (auto) 7.7 %; Mean Corpuscular Hgb Conc 34.5 g/dL (32.0-36.0); Mean Corpuscular Volume 98.4 fL (80.0-100.0); Mean Platelet Volume 10.8 fL (9.4-12.4); Monocytes # (auto) 0.73 K/uL (0.11-0.59); Monocytes % (auto) 6.4 %; Neutrophils # (auto) 9.26 K/uL (1.40-6.50); Neutrophils % (auto) 80.6 %; Platelet Count 160 K/uL (130-400); RDW Coefficient of Variation 13.7 % (11.5-14.5); RDW Standard Deviation 49.5 fL (36.4-46.3); Red Blood Count 3.65 M/uL (4.70-6.10); White Blood Count 11.49 K/ul (4.8-10.8)
[2024-01-29 06:54] LABS: BUN Creatinine Ratio 26.1 (10-20); Calcium 7.7 mg/dl (8.6-10.3); Creatinine Clr Calc Pharmacy 143.6 ml/min; Est GFR (African American) 143.3 ml/min; Est GFR (Non-African American) 123.6 ml/min; Magnesium 2.3 mg/dl (1.7-2.4); Phosphorus 2.1 mg/dl (2.5-4.9); Potassium 3.8 mmol/L (3.5-5.1)
--- NOTE | 2024-01-29 07:53 | XRay Report ---
XR chest 1V portable HISTORY: 58 years-old Male eval lines/tubes/lung rodriguez acute shortness of breath COMPARISON: 01/28/2024 TECHNIQUE: AP view of the chest FINDINGS: No pneumothorax. There are trace bilateral pleural effusions. A feeding tube is curled within the sto mach. This remains unchanged. Tracheostomy tube appears in good position. Patchy bilateral airspace o pacities most pronounced within the right lung persist. No acute fractures. IMPRESSION: 1. Unchanged positioning of the tracheostomy cannula and visualized feeding tube. 2. No pneumothorax. 3. Unchanged patchy mixed interstitial and alveolar opacities of the lungs, right greater than left. ACT 112: Negative or not required by law. The above report was generated using voice recognition software. It may contain grammatical, syntax o r spelling errors. Electronically signed by: Lamont Levi M.D. 01/29/2024 7:52 AM
[2024-01-29] MEDS: AMIODARONE 200 MG TAB PO SCH (08:25)
[2024-01-29] MEDS: POTASSIUM CHLORIDE 20 MEQ/15 ML UDC NG SCH (08:26)
[2024-01-29] MEDS: POT PHOSPHATE MONOBASIC W/ SOD TAB NG SCH (08:29)
--- NOTE | 2024-01-29 08:43 | Critical Care Progress Note ---
Date of Service January 29, 2024 Assessment & Plan (1) Aspiration pneumonia: (2) Cardiogenic shock: (3) Respiratory failure: (4) COPD with emphysema: (5) Bilirubinemia: (6) Transaminitis: (7) Atrial flutter with rapid ventricular response: (8) Acute on chronic HFrEF (heart failure with reduced ejection fraction): (9) Non-ischemic cardiomyopathy: Plan Impression: 58-year-old male status postcardiac arrest with history of heart failure and atrial fibrillation medical noncompliance. He was extubated but then required noninvasive positive pressure ventilation and eventually reintubation and subsequent percutaneous dilatation of tracheostomy placement. 24-hour events: Patient is done well. He is defervesced. He has been hemodynamically stable. Recommendations: Neuro: Off sedation. Analgesia appears adequate. Continue physical therapy and Occupational Therapy for rehab. No obvious sequelae from the patient's prior arrest Cardiac: Status post cardiac arrest: Improving with supportive therapy. Pulmonary edema which has responded to aggressive diuresis. Atrial fibrillation with rapid ventricular response responding to digoxin, amiodarone, beta-blockers and anticoagulation. Increase metoprolol to 25 mg via NG tube every 6 hours. Continue amiodarone at 400 mg daily for the next few days then decrease down to 200 mg a day. Continuing digoxin 0.125 mg daily Respiratory: Respiratory failure: Secondary to pulmonary edema. Continue diuresis and weaning oxygen as tolerated. Will pursue trach collar trials as clinically tolerated. Continue routine trach care. Reported history of COPD but PFTs not available. No evidence of bronchospasm. No indication for steroids including nebulized budesonide. Not bronchospastic for now. Continue albuterol as needed. GI: Currently on diet and tolerating reasonably well. Continue PPI and advance tube feedings as tolerated. RENAL/LYTES: Mild hyponatremia s improving this morning. Continue serial labs. Electrolyte replacement protocol in place. Continue diuresis. : Burk catheter in place for tracking intake and output. ENDO: Glycemic control per protocol HEME/ONC: No current issues ID: Fever curve improved today. Blood culture likely contaminant. Procalcitonin back to normal. Fever curve improving. Would continue to observe off antibiotics for now and follow cultures. Prophylaxis VTE: Heparin infusion GI: Pantoprazole Lines: peripheral lines x 3 Diet: Full strength enteral tube feeds Keep in ICU until tolerating trach collar greater than 24 hours Admission and Anticipated Discharge Date Admission Date: January 20, 2024 Subjective Patient seen and examined. EMR reviewed. Discussed with bedside critical care nurse and on multidisciplinary rounds. Review of Systems 2 Review of Systems: All systems reviewed & are unremarkable except as noted in Subjective Physical Exam Constitutional: well developed, well nourished, cooperative and + mechanically ventilated; no acute distress Respiratory: no respiratory distress, no labored breathing and not tachypneic Auscultation: + diminished lung sounds and + rhonchi; no crackles and no wheezes Cardiovascular: RRR, no murmur, no edema Gastrointestinal (Abdomen): normal bowel sounds, soft, nontender, no hepatosplenomegaly Results & Data Results & Data Vital Signs (Past 12 Hours) Vital Signs Temp Pulse Resp BP Pulse Ox O2 Del Method FiO2 01/29/24 07:40 87 33 H 96 40 01/29/24 05:00 37.4 C 87 26 H 131/74 95 Mechanical Vent 50 01/29/24 04:00 37.5 C 88 30 H 124/70 96 Mechanical Vent, Other 50 01/29/24 03:50 89 29 H 94 50 01/29/24 03:43 50 01/29/24 03:00 37.6 C H 88 29 H 111/64 95 Mechanical Vent, Other 50 01/29/24 02:00 37.9 C H 88 30 H 111/69 96 Mechanical Vent, Other 50 01/29/24 01:14 38.4 C H 99 H 30 H 132/72 24 L Mechanical Vent, Other 50 01/29/24 00:00 103 H 01/29/24 00:00 38.7 C H 100 H 24 103/63 93 Mechanical Vent, Other 50 01/29/24 00:00 50 01/28/24 23:44 50 01/28/24 23:30 107 H 38 H 90 50 01/28/24 23:30 108 H 44 H 130/83 92 CPAP, Other 50 01/28/24 23:00 38.5 C H 100 H 38 H 130/83 95 Other 50 01/28/24 21:00 CPAP, Other 50 01/28/24 20:54 96 H 38 H 95 50 Critical Care Results & Data Vital Signs (Past 12 Hours) Vital Signs Temp Pulse Resp BP Pulse Ox O2 Del Method FiO2 01/29/24 07:40 87 33 H 96 40 01/29/24 05:00 37.4 C 87 26 H 131/74 95 Mechanical Vent 50 01/29/24 04:00 37.5 C 88 30 H 124/70 96 Mechanical Vent, Other 50 01/29/24 03:50 89 29 H 94 50 01/29/24 03:43 50 01/29/24 03:00 37.6 C H 88 29 H 111/64 95 Mechanical Vent, Other 50 01/29/24 02:00 37.9 C H 88 30 H 111/69 96 Mechanical Vent, Other 50 01/29/24 01:14 38.4 C H 99 H 30 H 132/72 24 L Mechanical Vent, Other 50 01/29/24 00:00 103 H 01/29/24 00:00 38.7 C H 100 H 24 103/63 93 Mechanical Vent, Other 50 01/29/24 00:00 50 01/28/24 23:44 50 01/28/24 23:30 107 H 38 H 90 50 01/28/24 23:30 108 H 44 H 130/83 92 CPAP, Other 50 01/28/24 23:00 38.5 C H 100 H 38 H 130/83 95 Other 50 01/28/24 21:00 CPAP, Other 50 01/28/24 20:54 96 H 38 H 95 50 Lab & Micro Results (Past 24 Hours) RBC 3.65 M/uL (4.70-6.10) L 01/29/24 WBC 11.49 K/ul (4.8-10.8) H 01/29/24 Hgb 12.4 g/dl (14.0-18.0) L 01/29/24 Hct 35.9 % (42.0-52.0) L 01/29/24 MCV 98.4 fL (80.0-100.0) 01/29/24 MCH 34.0 pg (25.0-34.0) 01/29/24 MCHC 34.5 g/dL (32.0-36.0) 01/29/24 RDW Standard Deviation 49.5 fL (36.4-46.3) H 01/29/24 RDW Coefficient of Variation 13.7 % (11.5-14.5) 01/29/24 Plt Count 160 K/uL (130-400) 01/29/24 MPV 10.8 fL (9.4-12.4) 01/29/24 Neutrophils (%) (Auto) 80.6 % 01/29/24 Lymphocytes (%) (Auto) 7.7 % 01/29/24 Monocytes # (Auto) 0.73 K/uL (0.11-0.59) H 01/29/24 Eosinophils # (Auto) 0.10 K/uL (0.00-0.50) 01/29/24 Immature Granulocyte % (Auto) 3.9 % 01/29/24 Neutrophils # (Auto) 9.26 K/uL (1.40-6.50) H 01/29/24 Lymphocytes # (Auto) 0.89 K/uL (1.20-3.40) L 01/29/24 Monocytes # (Auto) 0.73 K/uL (0.11-0.59) H 01/29/24 Eosinophils # (Auto) 0.10 K/uL (0.00-0.50) 01/29/24 Basophils # (Auto) 0.06 K/uL (0.00-0.20) 01/29/24 Immature Granulocyte # (Auto) 0.45 K/uL (0.01-0.20) H 01/28 Na 130 mmol/L (136-145) L 01/29/24 K 3.8 mmol/L (3.5-5.1) 01/29/24 Cl 99 mmol/L (98-107) 01/29/24 CO2 25 mmol/L (21-32) 01/29/24 Anion Gap 6 (3-11) 01/29/24 BUN 12 mg/dl (6-23) 01/29/24 Creatinine 0.46 mg/dl (0.6-1.4) L 01/29/24 Estimated GFR ( Amer) 143.3 ml/min 01/29/24 Estimated GFR (Non-Af Amer) 123.6 ml/min 01/29/24 BUN/Creatinine Ratio 26.1 (10-20) H 01/29/24 Glu 154 mg/dl (70-99(Fasting)) H 01/29/24 Ca 7.7 mg/dl (8.6-10.3) L 01/29/24 Phosphorus Level 2.1 mg/dl (2.5-4.9) L 01/29/24 Mg 2.3 mg/dl (1.7-2.4) 01/29/24 06:11 Calcium Level 7.7 mg/dl (8.6-10.3) L 01/29/24 06:11 Microbiology 01/28/24 Unknown Gram Stain - Final Sputum,Vent Suction 01/26/24 23:07 Aerobic Blood Culture - Preliminary Blood Gram positive cocci clusters Anaerobic Blood Culture - Final Diagnostic Findings (Past 24 Hours) Chest X-Ray 01/29/24 06:00 XR chest 1V portable HISTORY: 58 years-old Male eval lines/tubes/lung rodriguez acute shortness of breath COMPARISON: 01/28/2024 TECHNIQUE: AP view of the chest FINDINGS: No pneumothorax. There are trace bilateral pleural effusions. A feeding tube is curled within the stomach. This remains unchanged. Tracheostomy tube appears in good position. Patchy bilateral airspace opacities most pronounced within the right lung persist. No acute fractures. IMPRESSION: 1. Unchanged positioning of the tracheostomy cannula and visualized feeding tube. 2. No pneumothorax. 3. Unchanged patchy mixed interstitial and alveolar opacities of the lungs, right greater than left. ACT 112: Negative or not required by law. The above report was generated using voice recognition software. It may contain grammatical, syntax or spelling errors. Electronically signed by: Lamont Levi M.D. 01/29/2024 7:52 AM I & O Totals 24 Hours 01/28/24 01/29/24 01/30/24 06:59 06:59 06:59 Intake Total 3988.760 / 3988.760 2740.550 / 2740.550 Output Total 5701 / 5701 3465 / 3465 Balance -1712.240 / -1712.240 -724.450 / -724.450 Cumulative 01/20/24 05:01 thru 01/29/24 06:00 Intake Total 32360.406 Output Total 89188 Balance -3524.594 RT Ventilator Mngmt (Last Documented) Ventilator Ordered Settings Ventilator Support Mode CPAP 01/29/24 07:40 Respiratory Rate 33 01/29/24 07:40 Ventilator Tidal Volume 450 01/29/24 03:50 Setting Minute Ventilation 20 01/29/24 07:40 Ventilator Positive Pressure 7 01/29/24 07:40 Support Setting Positive End Expiratory 6 01/29/24 07:40 Pressure Fraction of Inspired Oxygen 40 01/29/24 07:40 Peak Inspiratory Flow 60 01/22/24 15:10 Machine Comment started SBT, RN aware 01/29/24 07:40 Ventilator - PT Measurements Respiratory Rate 33 Exhaled Tidal Volume 675 Minute Ventilation 20 Peak Inspiratory Airway 14 Pressure Mean Airway Pressure 30 Plateau Pressure 24 Respiratory Cycle Inspiratory: 1:1.8 Expiratory Ratio Inspiratory Phase Time 0.7 End-Tidal CO2 23 Static Lung Compliance 38.61 Dynamic Lung Compliance 84.38 Normal Static Lung Compliance 49.00 Patient Measurements Comment pt stated he is comfortable on PSV at this time despite RR in 30's. RN aware. will continue to monitor pt Coding Level of Care Code 60776 SUB INP/OBS CARE 3/50MIN Diagnoses Aspiration pneumonia J69.0 Cardiogenic shock R57.0 Respiratory failure J96.90 COPD with emphysema J43.9 Bilirubinemia E80.6 Transaminitis R74.01 Atrial flutter with rapid ventricular response I48.92 Acute on chronic HFrEF (heart failure with reduced ejection fraction) I50.23 Non-ischemic cardiomyopathy I42.8
--- NOTE | 2024-01-29 11:24 | Electrocardiogram Report ---
Test Reason : Blood Pressure : */* mmHG Vent. Rate : 111 BPM Atrial Rate : 117 BPM P-R Int : * ms QRS Dur : 98 ms QT Int : 420 ms P-R-T Axes : * 34 33 degrees QTcB Int : 571 ms Poor data quality, interpretation may be adversely affected Atrial fibrillation with rapid ventricular response with premature ventricular or aberrantly conducte d complexes Voltage criteria for left ventricular hypertrophy Nonspecific T wave abnormality Abnormal ECG When compared with ECG of 26-Jan-2024 06:03, Significant changes have occurred Confirmed by Pranay Lyons ([id number]) on 01/29/2024 11:24:14 AM Referred By: REFERRED SELF Confirmed By: Pranay Lyons
[2024-01-29] MEDS: METOPROLOL TARTRATE 25 MG TAB PO SCH (12:14)
--- NOTE | 2024-01-29 12:31 | Hospitalist Progress Note ---
Date of Service January 29, 2024 Assessment & Plan (1) Respiratory failure: Plan: Patient was admitted to the hospital and found to be in respiratory failure CT scan of the chest showed evidence of likely aspiration pneumonia completed Zosyn He required intubation and ventilation, was extubated, However failed weaning trial Reintubation 01/25/2024. 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 recommendations and client liaison (2) Atrial fibrillation with rapid ventricular response: Plan: Patient went into A-fib with RVR Started on Cardizem, Amiodarone and digoxin Currently in sinus rhythm continue IV heparin and metoprolol Cardiology on board (3) Non-ischemic cardiomyopathy: Plan: cardiopulmonary resuscitation with cpr for decompensated cardiogenic shock has required pressors with cardiogenic shock, had been on dobutamine CT head without acute changes heparin gtt now restarted with afib/flutter. In past had thrombus in ventricle Monitor I/O, daily weight (4) History of alcohol abuse: Plan: unclear of last drink, no sign of withdrawal on thiamine also tobacco abuse (5) Physical deconditioning: Plan: Continue physical therapy (6) Acute on chronic HFrEF (heart failure with reduced ejection fraction): Plan Continue to monitor in the ICU, disposition maybe challenging Admission and Anticipated Discharge Date Admission Date: January 20, 2024 Subjective Patient seen and examined. Awake and alert, communication a bit difficult through his trach Review of Systems Review of Systems: All systems reviewed are negative, apart from the ones contained in the history. Physical Exam Physical Exam: The patient is awake, alert and oriented 3, In mild respiratory distress, using accessory muscles to breathe HEENT--PERRL, EOMI, mucous membranes and oropharynx mildly dry Neck--trach in situ Heart--normal S1 and S2. No murmurs, rubs or gallops. Lungs--clear bilaterally, no respiratory distress, no accessory muscle use. Abdomen--normal bowel sounds and soft. Extremities--no cyanosis or clubbing. No edema. Dermatologic--normal skin turgor, normal color, no abnormal lymph nodes, no rash. Neurologic--cranial nerves II through XII grossly intact. Rheumatologic--normal range of motion. Psychiatric--normal affect. Results & Data Results & Data Vital Signs (Past 12 Hours) Vital Signs Temp Pulse Resp BP Pulse Ox O2 Del Method FiO2 01/29/24 10:25 90 35 H 97 40 01/29/24 08:00 CPAP 0.4 01/29/24 08:00 40 01/29/24 07:40 87 33 H 96 40 01/29/24 05:00 99.3 F 87 26 H 131/74 95 Mechanical Vent 50 01/29/24 04:00 99.5 F 88 30 H 124/70 96 Mechanical Vent, Other 50 01/29/24 03:50 89 29 H 94 50 01/29/24 03:43 50 01/29/24 03:00 99.7 F H 88 29 H 111/64 95 Mechanical Vent, Other 50 01/29/24 02:00 100.2 F H 88 30 H 111/69 96 Mechanical Vent, Other 50 01/29/24 01:14 101.1 F H 99 H 30 H 132/72 24 L Mechanical Vent, Other 50 PG Care Time/CCT Total # of Minutes Spent Total Time Spent with Patient: Total time spent is greater than 50% in coordination of care (as documented) at patient's floor/unit and/or counseling patient: Coding Level of Care Code 12991 SUB INP/OBS CARE 2/35MIN Diagnoses Respiratory failure J96.90 Atrial fibrillation with rapid ventricular response I48.91 Non-ischemic cardiomyopathy I42.8 History of alcohol abuse F10.11 Physical deconditioning R53.81 Acute on chronic HFrEF (heart failure with reduced ejection fraction) I50.23 Time Spent (min) 35
[2024-01-30] MEDS: METOPROLOL TARTRATE 1 MG/ML VIAL IV ONE (03:34)
[2024-01-30] MEDS: METOPROLOL TARTRATE 1 MG/ML VIAL IV STA ×2 (03:44→08:16)
[2024-01-30 04:57] LABS: Basophils # (auto) 0.09 K/uL (0.00-0.20); Basophils % (auto) 0.7 %; Eosinophils # (auto) 0.12 K/uL (0.00-0.50); Hematocrit (blood only) 35.3 % (42.0-52.0); Hemoglobin 12.1 g/dl (14.0-18.0); Immature Granulocytes # (auto) 0.44 K/uL (0.01-0.20); Immature Granulocytes % (auto) 3.6 %; Lymphocytes % (auto) 7.4 %; Mean Corpuscular Hemoglobin 33.8 pg (25.0-34.0); Mean Corpuscular Hgb Conc 34.3 g/dL (32.0-36.0); Mean Corpuscular Volume 98.6 fL (80.0-100.0); Mean Platelet Volume 10.9 fL (9.4-12.4); Monocytes # (auto) 0.88 K/uL (0.11-0.59); Monocytes % (auto) 7.3 %; Platelet Count 199 K/uL (130-400); RDW Coefficient of Variation 13.8 % (11.5-14.5); RDW Standard Deviation 49.7 fL (36.4-46.3); Red Blood Count 3.58 M/uL (4.70-6.10); White Blood Count 12.13 K/ul (4.8-10.8)
[2024-01-30 05:02] LABS: BUN Creatinine Ratio 30.2 (10-20); Calcium 7.9 mg/dl (8.6-10.3); Creatinine Clr Calc Pharmacy 153.6 ml/min; Est GFR (African American) 147.3 ml/min; Est GFR (Non-African American) 127.1 ml/min; Magnesium 1.7 mg/dl (1.7-2.4); Phosphorus 2.8 mg/dl (2.5-4.9); Potassium 3.7 mmol/L (3.5-5.1)
[2024-01-30] MEDS: POTASSIUM CHLORIDE 20 MEQ/15 ML UDC NG SCH (05:42)
[2024-01-30] MEDS: MAGNESIUM SULFATE / D5W 1 GM/100 ML BAG IV SCH (05:42)
[2024-01-30] MEDS ORDERED: 0.2 MICRON FILTER SET 1 EACH IV ONE (08:00)
--- NOTE | 2024-01-30 08:06 | Critical Care Progress Note ---
Date of Service January 30, 2024 Assessment & Plan (1) Aspiration pneumonia: (2) Cardiogenic shock: (3) Respiratory failure: (4) COPD with emphysema: (5) Bilirubinemia: (6) Transaminitis: (7) Atrial flutter with rapid ventricular response: (8) Acute on chronic HFrEF (heart failure with reduced ejection fraction): (9) Non-ischemic cardiomyopathy: Plan Impression: 58-year-old male status postcardiac arrest with history of heart failure and atrial fibrillation medical noncompliance. He was extubated but then required noninvasive positive pressure ventilation and eventually reintubation and subsequent percutaneous dilatation of tracheostomy placement. 24-hour events: As noted above Recommendations: Neuro: Off sedation. Analgesia appears adequate. Continue physical therapy and Occupational Therapy for rehab. No obvious sequelae from the patient's prior arrest Cardiac: Status post cardiac arrest: Improving with supportive therapy. Pulmonary edema which has improved with aggressive diuresis. Atrial fibrillation with rapid ventricular response responding to digoxin, amiodarone, beta-blockers and anticoagulation. Will give an additional 5 mg IV metoprolol now as well as 150 mg of IV amiodarone. Continue amiodarone at 400 mg daily for the next few days then decrease down to 200 mg a day. Continuing digoxin 0.125 mg daily. Continue anticoagulation. Will give an additional dose of metolazone today for diuresis. Respiratory: Respiratory failure: Secondary to pulmonary edema. Continue diuresis and weaning oxygen as tolerated. Will pursue trach collar trials as clinically tolerated. Continue routine trach care. Reported history of COPD but PFTs not available. No evidence of bronchospasm. No indication for steroids. Not bronchospastic for now. Continue albuterol as needed. GI: Currently on tube feeding and tolerating reasonably well. Continue PPI RENAL/LYTES: Mild hyponatremia s stable this morning. Continue serial labs. Electrolyte replacement protocol in place. Continue diuresis. : Burk catheter in place for tracking intake and output. ENDO: Glycemic control per protocol HEME/ONC: No current issues ID: Patient with persistent low-grade fevers. He is completed 10 days of broad- spectrum antibiotics and cultures have remained negative. Continue to follow at this point in time. If remains persistently febrile, may need evaluation for noninfectious etiologies of fever. Prophylaxis VTE: Heparin infusion GI: Pantoprazole Lines: peripheral lines x 3 Diet: Full strength enteral tube feeds Keep in ICU until tolerating trach collar greater than 24 hours Admission and Anticipated Discharge Date Admission Date: January 20, 2024 Subjective Patient seen and examined. EMR reviewed. Discussed with critical care nurse at the bedside as well as on multidisciplinary rounds. The patient remained stable. He was attempted on trach collar trials yesterday but was poorly tolerant after about 5 minutes and had to be returned back to pressure support ventilation. He feels well this morning. He has transitioned back into atrial fibrillation with a rapid ventricular response. He received IV metoprolol last evening which did slow his rate some but did not convert him back into sinus. He remains on a heparin infusion Review of Systems Review of Systems: All systems reviewed & are unremarkable except as noted in Subjective Physical Exam Constitutional: well developed, well nourished, cooperative and + mechanically ventilated; no acute distress Neck: Trach site clean dry and intact Respiratory: no respiratory distress, no labored breathing and not tachypneic Auscultation: + diminished lung sounds and + rhonchi; no crackles and no wheezes Cardiovascular: RRR, no murmur, no edema Gastrointestinal (Abdomen): normal bowel sounds, soft, nontender, no hepatosplenomegaly Neurologic: No focal deficit Results & Data Results & Data Vital Signs (Past 12 Hours) Vital Signs Temp Pulse Resp BP Pulse Ox O2 Del Method FiO2 01/30/24 05:00 38.2 C H 114 H 30 H 115/79 95 Mechanical Vent, Other 35 01/30/24 04:20 107 H 28 H 100 35 01/30/24 04:00 38 C H 110 H 27 H 125/76 95 Mechanical Vent, Other 35 01/30/24 04:00 35 01/30/24 04:00 112 H 125/76 01/30/24 03:17 124 H 24 111/64 95 Mechanical Vent, Other 35 01/30/24 03:00 37.9 C H 84 27 H 123/71 96 Mechanical Vent, Other 35 01/30/24 02:00 37.9 C H 82 30 H 109/67 95 Mechanical Vent, Other 35 01/30/24 01:00 38.0 C H 83 28 H 104/56 L 94 Mechanical Vent, Other 35 01/30/24 00:00 88 01/30/24 00:00 37.8 C H 89 30 H 126/78 92 Mechanical Vent, Other 35 01/30/24 00:00 35 01/29/24 23:25 86 28 H 100 40 01/29/24 22:00 37.7 C H 93 H 27 H 103/63 98 Mechanical Vent, Other 45 01/29/24 21:00 38.0 C H 91 H 27 H 142/72 H 94 Mechanical Vent, Other 45 Critical Care Results & Data Vital Signs (Past 12 Hours) Vital Signs Temp Pulse Resp BP Pulse Ox O2 Del Method FiO2 01/30/24 05:00 38.2 C H 114 H 30 H 115/79 95 Mechanical Vent, Other 35 01/30/24 04:20 107 H 28 H 100 35 01/30/24 04:00 38 C H 110 H 27 H 125/76 95 Mechanical Vent, Other 35 01/30/24 04:00 35 01/30/24 04:00 112 H 125/76 01/30/24 03:17 124 H 24 111/64 95 Mechanical Vent, Other 35 01/30/24 03:00 37.9 C H 84 27 H 123/71 96 Mechanical Vent, Other 35 01/30/24 02:00 37.9 C H 82 30 H 109/67 95 Mechanical Vent, Other 35 01/30/24 01:00 38.0 C H 83 28 H 104/56 L 94 Mechanical Vent, Other 35 01/30/24 00:00 88 01/30/24 00:00 37.8 C H 89 30 H 126/78 92 Mechanical Vent, Other 35 01/30/24 00:00 35 01/29/24 23:25 86 28 H 100 40 01/29/24 22:00 37.7 C H 93 H 27 H 103/63 98 Mechanical Vent, Other 45 01/29/24 21:00 38.0 C H 91 H 27 H 142/72 H 94 Mechanical Vent, Other 45 Lab & Micro Results (Past 24 Hours) RBC 3.58 M/uL (4.70-6.10) L 01/30/24 WBC 12.13 K/ul (4.8-10.8) H 01/30/24 Hgb 12.1 g/dl (14.0-18.0) L 01/30/24 Hct 35.3 % (42.0-52.0) L 01/30/24 MCV 98.6 fL (80.0-100.0) 01/30/24 MCH 33.8 pg (25.0-34.0) 01/30/24 MCHC 34.3 g/dL (32.0-36.0) 01/30/24 RDW Standard Deviation 49.7 fL (36.4-46.3) H 01/30/24 RDW Coefficient of Variation 13.8 % (11.5-14.5) 01/30/24 Plt Count 199 K/uL (130-400) 01/30/24 MPV 10.9 fL (9.4-12.4) 01/30/24 Neutrophils (%) (Auto) 80.0 % 01/30/24 Lymphocytes (%) (Auto) 7.4 % 01/30/24 Monocytes # (Auto) 0.88 K/uL (0.11-0.59) H 01/30/24 Eosinophils # (Auto) 0.12 K/uL (0.00-0.50) 01/30/24 Immature Granulocyte % (Auto) 3.6 % 01/30/24 Neutrophils # (Auto) 9.70 K/uL (1.40-6.50) H 01/30/24 Lymphocytes # (Auto) 0.90 K/uL (1.20-3.40) L 01/30/24 Monocytes # (Auto) 0.88 K/uL (0.11-0.59) H 01/30/24 Eosinophils # (Auto) 0.12 K/uL (0.00-0.50) 01/30/24 Basophils # (Auto) 0.09 K/uL (0.00-0.20) 01/30/24 Immature Granulocyte # (Auto) 0.44 K/uL (0.01-0.20) H 01/29 Na 129 mmol/L (136-145) L 01/30/24 K 3.7 mmol/L (3.5-5.1) 01/30/24 Cl 97 mmol/L (98-107) L 01/30/24 CO2 26 mmol/L (21-32) 01/30/24 Anion Gap 6 (3-11) 01/30/24 BUN 13 mg/dl (6-23) 01/30/24 Creatinine 0.43 mg/dl (0.6-1.4) L 01/30/24 Estimated GFR ( Amer) 147.3 ml/min 01/30/24 Estimated GFR (Non-Af Amer) 127.1 ml/min 01/30/24 BUN/Creatinine Ratio 30.2 (10-20) H 01/30/24 Glu 150 mg/dl (70-99(Fasting)) H 01/30/24 Ca 7.9 mg/dl (8.6-10.3) L 01/30/24 Phosphorus Level 2.8 mg/dl (2.5-4.9) 01/30/24 Mg 1.7 mg/dl (1.7-2.4) 01/30/24 04:09 Calcium Level 7.9 mg/dl (8.6-10.3) L 01/30/24 04:09 Microbiology 01/28/24 14:03 Aerobic Blood Culture - Preliminary Blood No growth in Aerobic bottle after 24 hours. Anaerobic Blood Culture - Preliminary No growth in Anaerobic bottle after 24 hours. 01/28/24 Unknown Gram Stain - Final Sputum,Vent Suction Sputum Culture - Preliminary Pin-point growth present, reincubating. I & O Totals 24 Hours 01/29/24 01/30/24 01/31/24 06:59 06:59 06:59 Intake Total 2740.550 / 2740.550 2352 / 2352 140 / 140 Output Total 3465 / 3465 1975 Balance -724.450 / -724.450 376 / 376 140 / 140 Cumulative 01/20/24 05:01 thru 01/30/24 07:36 Intake Total 45081.406 Output Total 32655 Balance -3008.594 RT Ventilator Mngmt (Last Documented) Ventilator Ordered Settings Ventilator Support Mode Assist Control 01/30/24 04:20 Respiratory Rate 30 01/30/24 05:00 Ventilator Tidal Volume 450 01/30/24 04:20 Setting Minute Ventilation 16 01/30/24 04:20 Ventilator Positive Pressure 7 01/29/24 14:57 Support Setting Positive End Expiratory 6 01/30/24 04:20 Pressure Fraction of Inspired Oxygen 35 01/30/24 05:00 Peak Inspiratory Flow 60 01/22/24 15:10 Machine Comment pt found on 35% 01/30/24 04:20 Ventilator - PT Measurements Respiratory Rate 30 Exhaled Tidal Volume 716 Minute Ventilation 16 Peak Inspiratory Airway 26 Pressure Mean Airway Pressure 30 Plateau Pressure 22 Respiratory Cycle Inspiratory: 1:1.9 Expiratory Ratio Inspiratory Phase Time 0.7 End-Tidal CO2 22 Static Lung Compliance 44.75 Dynamic Lung Compliance 35.80 Normal Static Lung Compliance 48.00 Patient Measurements Comment pt switched to full vent at this time after desauration and high RR from being rolled Coding Level of Care Code 85310 SUB INP/OBS CARE 3/50MIN Diagnoses Aspiration pneumonia J69.0 Cardiogenic shock R57.0 Respiratory failure J96.90 COPD with emphysema J43.9 Bilirubinemia E80.6 Transaminitis R74.01 Atrial flutter with rapid ventricular response I48.92 Acute on chronic HFrEF (heart failure with reduced ejection fraction) I50.23 Non-ischemic cardiomyopathy I42.8
[2024-01-30] MEDS: AMIODARONE / D5W 150 MG/100 ML BAG IV STA (08:16)
[2024-01-30] MEDS: metOLazone 5 MG TABLET PO ONE (08:40)
[2024-01-30] MEDS: LORazepam 0.5 MG TAB PO PRN (10:12)
[2024-01-30] MEDS: MoRPHine SULFATE 2 MG/ML CARP IV STA (12:25)
--- NOTE | 2024-01-30 13:53 | Hospitalist Progress Note ---
Date of Service January 30, 2024 Assessment & Plan (1) Respiratory failure: Plan: Patient was admitted to the hospital and found to be in respiratory failure CT scan of the chest showed evidence of likely aspiration pneumonia completed Zosyn He required intubation and ventilation, was extubated, However failed weaning trial Reintubation 01/25/2024. 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 Trach collar when able to tolerate PRN Morphine for air hunger (2) Low grade fever: Plan: Etiology is uncertain, could be due to atypical organism, virus, drug fever Has completed a course of antibiotics and conventional cultures are negative (3) Atrial fibrillation with rapid ventricular response: Plan: Patient went into A-fib with RVR Started on Cardizem, Amiodarone and digoxin Currently in sinus rhythm continue IV heparin and metoprolol Cardiology on board (4) Non-ischemic cardiomyopathy: Plan: cardiopulmonary resuscitation with cpr for decompensated cardiogenic shock has required pressors with cardiogenic shock, had been on dobutamine CT head without acute changes heparin gtt now restarted with afib/flutter. In past had thrombus in ventricle Monitor I/O, daily weight (5) History of alcohol abuse: Plan: unclear of last drink, no sign of withdrawal on thiamine also tobacco abuse (6) Physical deconditioning: Plan: Continue physical therapy (7) Acute on chronic HFrEF (heart failure with reduced ejection fraction): Plan Continue to monitor in the ICU, disposition maybe challenging Admission and Anticipated Discharge Date Admission Date: January 20, 2024 Subjective patient seen and examined, says he feels overwhelmed and as if he is losing it Review of Systems Review of Systems: All systems reviewed are negative, apart from the ones contained in the history. Physical Exam Physical Exam: The patient is awake, alert and oriented 3, trach in situ HEENT--PERRL, EOMI, mucous membranes and oropharynx mildly dry Neck--trach in situ Heart--normal S1 and S2. No murmurs, rubs or gallops. Lungs--clear bilaterally, no respiratory distress, no accessory muscle use. Abdomen--normal bowel sounds and soft. Extremities--no cyanosis or clubbing. No edema. Dermatologic--normal skin turgor, normal color, no abnormal lymph nodes, no rash. Neurologic--cranial nerves II through XII grossly intact. Rheumatologic--normal range of motion. Psychiatric--normal affect. Results & Data Results & Data Vital Signs (Past 12 Hours) Vital Signs Temp Pulse Resp BP Pulse Ox O2 Del Method FiO2 01/30/24 12:00 60 01/30/24 11:24 50 01/30/24 11:12 80 01/30/24 10:00 90 42 H 91 100 01/30/24 08:40 90 103/81 01/30/24 08:16 124 H 107/82 01/30/24 08:00 35 01/30/24 08:00 115 H 01/30/24 08:00 CPAP, Mechanical Vent 35 01/30/24 07:57 116 H 32 H 96 35 01/30/24 07:55 106 H 29 H 95 35 01/30/24 05:00 100.8 F H 114 H 30 H 115/79 95 Mechanical Vent, Other 35 01/30/24 04:20 107 H 28 H 100 35 01/30/24 04:00 100.4 F H 110 H 27 H 125/76 95 Mechanical Vent, Other 35 01/30/24 04:00 35 01/30/24 04:00 112 H 125/76 01/30/24 03:17 124 H 24 111/64 95 Mechanical Vent, Other 35 01/30/24 03:00 100.2 F H 84 27 H 123/71 96 Mechanical Vent, Other 35 01/30/24 02:00 100.2 F H 82 30 H 109/67 95 Mechanical Vent, Other 35 PG Care Time/CCT Total # of Minutes Spent Total Time Spent with Patient: Total time spent is greater than 50% in coordination of care (as documented) at patient's floor/unit and/or counseling patient: Coding Level of Care Code 21145 SUB INP/OBS CARE 235MIN Diagnoses Respiratory failure J96.90 Low grade fever R50.9 Atrial fibrillation with rapid ventricular response I48.91 Non-ischemic cardiomyopathy I42.8 History of alcohol abuse F10.11 Physical deconditioning R53.81 Acute on chronic HFrEF (heart failure with reduced ejection fraction) I50.23 Time Spent (min) 35
--- NOTE | 2024-01-30 13:56 | XRay Report ---
KUB CLINICAL HISTORY: Check placement of feeding tube COMPARISON STUDY: KUB January 27, 2024. FINDINGS: The tip of the feeding tube projects over the first portion of the duodenum. Visualized bow el gas pattern is normal. Multifocal airspace opacities are noted, including confluent right upper derek ng opacity. Tracheostomy tube is partially imaged. IMPRESSION: Tip of feeding tube projects over the first portion of the duodenum. ACT 112: Negative or not required by law. Electronically signed by: Wong Montenegro M.D. 01/30/2024 1:55 PM
[2024-01-30] MEDS: MoRPHine SULFATE 2 MG/ML CARP IV PRN (14:42)
[2024-01-31 05:40] LABS: ANTI-Xa, UFH(UnfractionatedHep 0.53 IU/ml (0.3-0.7)
[2024-01-31 06:36] LABS: Basophils # (auto) 0.07 K/uL (0.00-0.20); Basophils % (auto) 0.5 %; Eosinophils % (auto) 0.8 %; Hematocrit (blood only) 35.3 % (42.0-52.0); Hemoglobin 12.2 g/dl (14.0-18.0); Immature Granulocytes # (auto) 0.39 K/uL (0.01-0.20); Lymphocytes # (auto) 0.92 K/uL (1.20-3.40); Mean Corpuscular Hemoglobin 33.8 pg (25.0-34.0); Mean Corpuscular Hgb Conc 34.6 g/dL (32.0-36.0); Mean Corpuscular Volume 97.8 fL (80.0-100.0); Mean Platelet Volume 10.7 fL (9.4-12.4); Monocytes # (auto) 1.17 K/uL (0.11-0.59); Neutrophils % (auto) 79.7 %; Platelet Count 233 K/uL (130-400); RDW Coefficient of Variation 13.5 % (11.5-14.5); RDW Standard Deviation 48.1 fL (36.4-46.3); Red Blood Count 3.61 M/uL (4.70-6.10); White Blood Count 13.05 K/ul (4.8-10.8)
[2024-01-31 06:39] LABS: Anion Gap 6 (3-11); BUN Creatinine Ratio 32.5 (10-20); Blood Urea Nitrogen 13 mg/dl (6-23); Calcium 7.7 mg/dl (8.6-10.3); Carbon Dioxide 29 mmol/L (21-32); Chloride 89 mmol/L (98-107); Creatinine Clr Calc Pharmacy 167.4 ml/min; Est GFR (African American) > 150.0 ml/min; Est GFR (Non-African American) 130.9 ml/min; Glucose 152 mg/dl (70-99(Fasting)); Magnesium 1.7 mg/dl (1.7-2.4); Phosphorus 3.7 mg/dl (2.5-4.9); Potassium 3.4 mmol/L (3.5-5.1); Sodium 124 mmol/L (136-145)
--- NOTE | 2024-01-31 07:11 | XRay Report ---
XR KUB/Abdomen 1 view CLINICAL HISTORY: New coresafe inserted TECHNIQUE: 1 view of the abdomen was obtained. Comparison: Comparison is made to abdomen radiograph 01/30/2024 FINDINGS: Enteric tube terminates in the stomach. Rectal temperature probe is noted. Degenerative changes are s een in the visualized skeleton. The bowel gas pattern is nonobstructive. A moderate amount of stool i s noted within the large bowel. IMPRESSION: Satisfactory position of enteric tube. ACT 112: Negative or not required by law. Electronically signed by: Abdias Hennessy M.D. 01/31/2024 7:09 AM
[2024-01-31] MEDS ORDERED: MAGNESIUM SULFATE / D5W 1 GM/100 ML BAG IV SCH (07:15)
--- NOTE | 2024-01-31 07:42 | XRay Report ---
XR chest 1V portable CLINICAL HISTORY: resp failure TECHNIQUE: Single frontal radiograph of the chest was obtained. Comparison: Comparison is made to chest radiograph 01/29/2024 FINDINGS: Stable tracheostomy tube. Enteric tube is stable. The cardiomediastinal silhouette is normal. Multifo de airspace opacities are seen. No evidence of pleural effusion or pneumothorax. IMPRESSION: Multiple airspace opacities are unchanged from prior exam. ACT 112: Negative or not required by law. Electronically signed by: Abdias Hennessy M.D. 01/31/2024 7:40 AM
[2024-01-31] MEDS: POTASSIUM CHLORIDE 20 MEQ/15 ML UDC NG SCH (08:18)
--- NOTE | 2024-01-31 09:16 | Critical Care Progress Note ---
Date of Service January 31, 2024 Assessment & Plan (1) Aspiration pneumonia: (2) Cardiogenic shock: (3) Respiratory failure: (4) COPD with emphysema: (5) Bilirubinemia: (6) Transaminitis: (7) Atrial flutter with rapid ventricular response: (8) Acute on chronic HFrEF (heart failure with reduced ejection fraction): (9) Non-ischemic cardiomyopathy: Plan Impression: 58-year-old male status postcardiac arrest with history of heart failure and atrial fibrillation medical noncompliance. He was extubated but then required noninvasive positive pressure ventilation and eventually reintubation and subsequent percutaneous dilatation of tracheostomy placement. 24-hour events: Patient currently doing well on trach collar. Denies any overt complaints. Recommendations: Neuro: Off sedation. Analgesia appears adequate. Continue physical therapy and Occupational Therapy for rehab. No obvious sequelae from the patient's prior arrest Cardiac: Status post cardiac arrest: Improving with supportive therapy. Pulmonary edema which has improved with aggressive diuresis. Atrial fibrillation with rapid ventricular response responding to digoxin, amiodarone, beta-blockers and anticoagulation. Continue amiodarone at 400 mg daily for the next few days then decrease down to 200 mg a day. Continuing digoxin 0.125 mg daily. Continue anticoagulation. Respiratory: Respiratory failure: Secondary to pulmonary edema. Continue diuresis and weaning oxygen as tolerated. Will pursue trach collar trials as clinically tolerated. Continue routine trach care. Reported history of COPD but PFTs not available. No evidence of bronchospasm. No indication for steroids. Not bronchospastic for now. Continue albuterol as needed. GI: Currently on tube feeding and tolerating reasonably well. Continue PPI RENAL/LYTES: Hyponatremia and hypokalemia worsening. Replace potassium as able. Avoid hypotonic fluids. Continue serial labs. Electrolyte replacement protocol in place. Hold Lasix today. Repeat BMP at noon. : Burk catheter in place for tracking intake and output. ENDO: Glycemic control per protocol HEME/ONC: No current issues ID: Patient with persistent low-grade fevers. He is completed 10 days of broad- spectrum antibiotics and cultures have remained negative. Continue to follow at this point in time. Check procalcitonin today. Prophylaxis VTE: Heparin infusion GI: Pantoprazole Lines: peripheral lines x 3 Diet: Full strength enteral tube feeds Keep in ICU until tolerating trach collar greater than 24 hours CRITICAL CARE TIME I have personally spent 44 minutes of critical care time in the direct management of this patient. This is a life/limb threatening event. This includes time spent evaluating patient, direct bedside care, chart review, placing orders, interpretation of diagnostic studies, discussion with consultants, patient, and family members, as well as other required patient management activities. This time is exclusive of all separately billable procedures, and teaching time and separate from and in addition to any other critical care service time. Admission and Anticipated Discharge Date Admission Date: January 20, 2024 Subjective Patient seen examined. No overt complaints or issues this morning. Some discordance with temperature readings orally and rectally. Currently on trach collar and NG tube feeds infusing. Review of Systems Review of Systems: All systems reviewed & are unremarkable except as noted in HPI & below Physical Exam Constitutional: well developed, well nourished, cooperative and + mechanically ventilated; no acute distress Neck: Trach site clean dry and intact Respiratory: no respiratory distress, no labored breathing and not tachypneic Auscultation: + diminished lung sounds and + rhonchi; no crackles and no wheezes Cardiovascular: RRR, no murmur, no edema Gastrointestinal (Abdomen): normal bowel sounds, soft, nontender, no hepatosplenomegaly Neurologic: No focal deficit Results & Data Results & Data Vital Signs (Past 12 Hours) Vital Signs Temp Pulse Resp BP Pulse Ox O2 Del Method FiO2 01/31/24 08:00 40 01/31/24 07:53 40 01/31/24 07:53 82 01/31/24 07:31 84 29 H 98 40 01/31/24 06:00 37.6 C H 85 27 H 115/65 97 Mechanical Vent, Other 40 01/31/24 05:00 37.7 C H 80 24 115/65 99 Mechanical Vent, Other 40 01/31/24 04:00 37.8 C H 80 123/73 97 Mechanical Vent, Other 40 01/31/24 04:00 40 01/31/24 03:55 80 24 96 40 01/31/24 03:00 38.1 C H 77 26 H 113/64 96 Mechanical Vent, Other 40 01/31/24 02:00 38.1 C H 76 25 H 103/59 L 96 Mechanical Vent, Other 40 01/31/24 01:00 38 C H 83 21 110/74 97 Mechanical Vent, Other 40 01/31/24 00:00 84 01/31/24 00:00 80 97 H 110/72 96 Mechanical Vent, Other 40 01/30/24 23:44 86 24 100 40 01/30/24 23:00 37.8 C H 88 26 H 114/77 97 Mechanical Vent, Other 40 01/30/24 22:00 37.8 C H 89 29 H 129/75 96 Mechanical Vent, Other 40 Coding Level of Care Code 26859 CRITICAL CARE 1ST 30-74M Diagnoses Aspiration pneumonia J69.0 Cardiogenic shock R57.0 Respiratory failure J96.90 COPD with emphysema J43.9 Bilirubinemia E80.6 Transaminitis R74.01 Atrial flutter with rapid ventricular response I48.92 Acute on chronic HFrEF (heart failure with reduced ejection fraction) I50.23 Non-ischemic cardiomyopathy I42.8
[2024-01-31 09:37] LABS: Adenovirus PCR Not Detected (NotDetected); Bordetella parapertussis PCR Not Detected (NotDetected); Bordetella pertussis PCR Not Detected (NotDetected); Chlamydia pneumoniae PCR Not Detected (NotDetected); Coronavirus 229E PCR Not Detected (NotDetected); Coronavirus CoV-2 (COVID19)PCR Not Detected (NotDetected); Coronavirus HKU1 PCR Not Detected (NotDetected); Coronavirus NL63 PCR Not Detected (NotDetected); Coronavirus OC43PCR Not Detected (NotDetected); Human Metapneumovirus PCR Not Detected (NotDetected); Influenza A PCR Not Detected (NotDetected); Influenza B PCR Not Detected (NotDetected); Mycoplasma pneumoniae PCR Not Detected (NotDetected); Parainfluenza Virus 1 PCR Not Detected (NotDetected); Parainfluenza Virus 2 PCR Not Detected (NotDetected); Parainfluenza Virus 3 PCR Not Detected (NotDetected); Parainfluenza Virus 4 PCR Not Detected (NotDetected); Respiratory Syncytial VirusPCR Not Detected (NotDetected); Rhinovirus/Enterovirus PCR Not Detected (NotDetected)
[2024-01-31] MEDS: SODIUM CHLORIDE 0.9% IV ONE (10:17)
[2024-01-31] MEDS: MAGNESIUM SULFATE IV ONE (10:17)
[2024-01-31 10:26] LABS: Alanine Aminotransferase 24 U/L (7-52); Albumin Level 2.7 gm/dl (3.4-5.0); Alkaline Phosphatase 75 U/L (34-104); Aspartate Aminotransferase 22 U/L (13-39); Bilirubin Direct 0.8 mg/dl (0-0.2); Bilirubin,Total 2.2 mg/dl (0.2-1.0)
[2024-01-31 11:27] LABS: T4 Free Thyroxine 0.89 ng/dl (0.61-1.60)
[2024-01-31 13:56] LABS: Calcium 8.5 mg/dl (8.6-10.3); Potassium 4.3 mmol/L (3.5-5.1)
[2024-01-31 14:01] LABS: Est GFR (African American) 133.1 ml/min; Est GFR (Non-African American) 114.9 ml/min
[2024-01-31 14:02] LABS: BUN Creatinine Ratio 25.5 (10-20); Creatinine Clr Calc Pharmacy 121.8 ml/min
[2024-01-31] MEDS: METOPROLOL TARTRATE 1 MG/ML VIAL IV ONE ×2 (14:21→16:31)
[2024-01-31] MEDS: METOPROLOL TARTRATE 1 MG/ML VIAL IV STA ×2 (14:21→16:31)
--- NOTE | 2024-01-31 14:49 | Hospitalist Progress Note ---
Date of Service January 31, 2024 Assessment & Plan (1) Respiratory failure: Plan: Patient was admitted to the hospital and found to be in respiratory failure CT scan of the chest showed evidence of likely aspiration pneumonia completed Zosyn He required intubation and ventilation, was extubated, However failed weaning trial Reintubation 01/25/2024. 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 when able to tolerate PRN Morphine for air hunger (2) Low grade fever: Plan: per the RN, the rectal probe showed a slightly higher temp than the oral one, which is wnl Has completed a course of antibiotics anyway (3) Atrial fibrillation with rapid ventricular response: Plan: Patient went into A-fib with RVR Started on Cardizem, Amiodarone and digoxin Currently rate iss under fair control continue IV heparin and metoprolol Cardiology on board (4) Non-ischemic cardiomyopathy: Plan: cardiopulmonary resuscitation with cpr for decompensated cardiogenic shock has required pressors with cardiogenic shock, had been on dobutamine CT head without acute changes heparin gtt now restarted with afib/flutter. In past had thrombus in ventricle Monitor I/O, daily weight (5) History of alcohol abuse: Plan: unclear of last drink, no sign of withdrawal on thiamine also tobacco abuse (6) Physical deconditioning: Plan: Continue physical therapy (7) Acute on chronic HFrEF (heart failure with reduced ejection fraction): Plan Continue to monitor in the ICU, disposition maybe challenging I called his brother yesterday to update him Admission and Anticipated Discharge Date Admission Date: January 20, 2024 Subjective Patient seen and examined, appears very comfortable, lying quietly in bed Review of Systems Review of Systems: All systems reviewed are negative, apart from the ones contained in the history. Physical Exam Physical Exam: The patient is awake, alert and oriented 3, trach in situ HEENT--PERRL, EOMI, mucous membranes and oropharynx mildly dry Neck--trach in situ Heart--normal S1 and S2. No murmurs, rubs or gallops. Lungs--clear bilaterally, no respiratory distress, no accessory muscle use. Abdomen--normal bowel sounds and soft. Extremities--no cyanosis or clubbing. No edema. Dermatologic--normal skin turgor, normal color, no abnormal lymph nodes, no rash . Neurologic--cranial nerves II through XII grossly intact. Rheumatologic--normal range of motion. Psychiatric--normal affect. Results & Data Results & Data Vital Signs (Past 12 Hours) Vital Signs Temp Pulse Resp BP Pulse Ox O2 Del Method FiO2 01/31/24 14:36 120 H 112/81 01/31/24 14:21 115 H 121/67 01/31/24 12:20 98 H 25 H 89 L 50 01/31/24 12:01 82 91 01/31/24 12:00 40 01/31/24 11:47 98.1 F 01/31/24 11:06 86 89 L 01/31/24 11:00 133/90 01/31/24 10:01 84 24 124/69 94 01/31/24 09:12 83 0 L 90 01/31/24 09:00 131/84 01/31/24 08:09 86 28 H 97 40 01/31/24 08:00 98.1 F 01/31/24 08:00 119/67 01/31/24 08:00 40 01/31/24 07:53 40 01/31/24 07:53 82 01/31/24 07:31 84 29 H 98 40 01/31/24 06:00 99.7 F H 85 27 H 115/65 97 Mechanical Vent, Other 40 01/31/24 05:00 99.9 F H 80 24 115/65 99 Mechanical Vent, Other 40 01/31/24 04:00 100.0 F H 80 123/73 97 Mechanical Vent, Other 40 01/31/24 04:00 40 01/31/24 03:55 80 24 96 40 01/31/24 03:00 100.6 F H 77 26 H 113/64 96 Mechanical Vent, Other 40 PG Care Time/CCT Total # of Minutes Spent Total Time Spent with Patient: Total time spent is greater than 50% in coordination of care (as documented) at patient's floor/unit and/or counseling patient: Coding Level of Care Code 27632 SUB INP/OBS CARE 2/35MIN Diagnoses Respiratory failure J96.90 Low grade fever R50.9 Atrial fibrillation with rapid ventricular response I48.91 Non-ischemic cardiomyopathy I42.8 History of alcohol abuse F10.11 Physical deconditioning R53.81 Acute on chronic HFrEF (heart failure with reduced ejection fraction) I50.23 Time Spent (min) 35
[2024-01-31 16:43] LABS: Source BAL RUL; Source LUNG
[2024-02-01 05:17] LABS: Basophils # (auto) 0.08 K/uL (0.00-0.20); Basophils % (auto) 0.8 %; Eosinophils # (auto) 0.09 K/uL (0.00-0.50); Eosinophils % (auto) 0.9 %; Hematocrit (blood only) 33.6 % (42.0-52.0); Hemoglobin 11.8 g/dl (14.0-18.0); Immature Granulocytes # (auto) 0.44 K/uL (0.01-0.20); Immature Granulocytes % (auto) 4.2 %; Lymphocytes # (auto) 1.12 K/uL (1.20-3.40); Lymphocytes % (auto) 10.7 %; Mean Corpuscular Hemoglobin 34.2 pg (25.0-34.0); Mean Corpuscular Hgb Conc 35.1 g/dL (32.0-36.0); Mean Corpuscular Volume 97.4 fL (80.0-100.0); Mean Platelet Volume 10.3 fL (9.4-12.4); Monocytes # (auto) 1.16 K/uL (0.11-0.59); Monocytes % (auto) 11.1 %; Neutrophils # (auto) 7.58 K/uL (1.40-6.50); Neutrophils % (auto) 72.3 %; Platelet Count 299 K/uL (130-400); RDW Coefficient of Variation 13.4 % (11.5-14.5); RDW Standard Deviation 48.1 fL (36.4-46.3); Red Blood Count 3.45 M/uL (4.70-6.10); White Blood Count 10.47 K/ul (4.8-10.8)
[2024-02-01 05:33] LABS: BUN Creatinine Ratio 33.3 (10-20); Creatinine Clr Calc Pharmacy 148.8 ml/min; Est GFR (African American) 144.6 ml/min; Est GFR (Non-African American) 124.7 ml/min; Magnesium 1.8 mg/dl (1.7-2.4); Potassium 3.8 mmol/L (3.5-5.1)
[2024-02-01 05:42] LABS: ANTI-Xa, UFH(UnfractionatedHep 0.51 IU/ml (0.3-0.7)
[2024-02-01] MEDS: MAGNESIUM OXIDE 400 MG TAB NG SCH (05:59)
[2024-02-01] MEDS: POTASSIUM CHLORIDE 20 MEQ/15 ML UDC NG SCH (05:59)
--- NOTE | 2024-02-01 07:23 | Critical Care Progress Note ---
Date of Service February 01, 2024 Assessment & Plan (1) Aspiration pneumonia: (2) Cardiogenic shock: (3) Respiratory failure: (4) COPD with emphysema: (5) Bilirubinemia: (6) Transaminitis: (7) Atrial flutter with rapid ventricular response: (8) Acute on chronic HFrEF (heart failure with reduced ejection fraction): (9) Non-ischemic cardiomyopathy: Plan Assessment & Plan (1) Aspiration pneumonia: (2) Cardiogenic shock: (3) Respiratory failure: (4) COPD with emphysema: (5) Bilirubinemia: (6) Transaminitis: (7) Atrial flutter with rapid ventricular response: (8) Acute on chronic HFrEF (heart failure with reduced ejection fraction): (9) Non-ischemic cardiomyopathy: Plan Impression: 58-year-old male status postcardiac arrest with history of heart failure and atrial fibrillation medical noncompliance. He was extubated but then required noninvasive positive pressure ventilation and eventually reintubation and subsequent percutaneous dilatation of tracheostomy placement. 24-hour events: Patient currently doing well on trach collar. Denies any overt complaints. Recommendations: Neuro: Off sedation. Analgesia appears adequate. Continue physical therapy and Occupational Therapy for rehab. No obvious sequelae from the patient's prior arrest Cardiac: Status post cardiac arrest: Improving with supportive therapy. Pulmonary edema which has improved with aggressive diuresis. Atrial fibrillation with rapid ventricular response responding to digoxin, amiodarone, beta-blockers and anticoagulation. Continue amiodarone at 400 mg daily for the next few days then decrease down to 200 mg a day. - increase digoxin to 0.25 mg daily (digoxin level, 0.4 (normal, 0.8 - 2.0)) - Continue anticoagulation. - BNP ordered today Respiratory: Respiratory failure: Secondary to pulmonary edema. Continue diuresis and weaning oxygen as tolerated. Will pursue trach collar trials as clinically tolerated. Continue routine trach care. Reported history of COPD but PFTs not available. No evidence of bronchospasm. No indication for steroids. Not bronchospastic for now. Continue albuterol as needed. GI: Currently on tube feeding and tolerating reasonably well. Continue PPI RENAL/LYTES: Hyponatremia and hypokalemia worsening. Replace potassium as able. Avoid hypotonic fluids. Continue serial labs. Electrolyte replacement protocol in place. Continue to hold Lasix today. BMP, Mg ordered for 2 pm today - I's and O's, balance +443 mL (2343 - 1900 mL) : Burk catheter in place for tracking intake and output. ENDO: Glycemic control per protocol HEME/ONC: No current issues ID: Patient with persistent low-grade fevers. He is completed 10 days of broad- spectrum antibiotics and cultures have remained negative. Continue to follow at this point in time. procalcitonin, 0.45 (01/31/24) Prophylaxis VTE: Heparin infusion GI: Pantoprazole Lines: peripheral lines x 3 Diet: Full strength enteral tube feeds Keep in ICU until tolerating trach collar greater than 24 hours Admission and Anticipated Discharge Date Admission Date: January 20, 2024 Supervising Physician Co-Signing Physician Notes Patient seen and examined. Agree with note as above unless otherwise specified. Appreciate cardiology input regarding rate control of the patient's A-fib. Continue trach collar trials as tolerated. Awaiting placement to SNF or LTAC. Case management involved. Appreciate their input. Subjective Patient is a 58 yo M w/ a PMHx of HFrEF, AFib w/ RVR, alcohol use, nonischemic cardiomyopathy, HTN who was admitted to the ICU due to AFib w/ RVR, significant pulmonary edema, and respiratory failure. Today the patient endorses continued subjective improvement, including decreased diarrhea, improving respiratory status, more energetic/vigorous. Patient denies any AP/N/V, CP or palpitations, any subjective feeling of dyspnea on current oxygen requirements. Review of Systems Constitutional: no fever, no chills and no weakness Respiratory: + dyspnea on exertion; no dyspnea (no dy spnea on current O2 requirements) Cardiovascular: no chest pain, no chest pain at rest and no palpitations Gastrointestinal: no abdominal pain, no nausea, no vomiting and no diarrhea/loose stools Genitourinary: no dysuria or no urinary frequency Physical Exam Constitutional: WD/WN, vitals as above Respiratory: no respiratory distress Auscultation: + crackles (bases of lungs only); no diminished lung sounds Cardiovascular: RRR, no murmur, no edema Gastrointestinal (Abdomen): normal bowel sounds, soft, nontender, no hepatosplenomegaly Psychiatric: A+Ox3, euthymic affect Results & Data Results & Data Vital Signs (Past 12 Hours) Vital Signs Temp Pulse Resp BP Pulse Ox O2 Del Method FiO2 02/01/24 05:54 98 H 21 120/63 98 02/01/24 05:39 37.4 C 02/01/24 05:00 112 H 20 111/58 L 99 02/01/24 04:38 116 H 31 H 98 40 02/01/24 04:15 98 H 13 98/64 L 97 02/01/24 04:00 40 02/01/24 03:00 108 H 22 105/68 97 02/01/24 02:15 106 H 22 106/52 L 99 02/01/24 01:45 101 H 22 101/51 L 98 02/01/24 01:00 88/61 L 02/01/24 01:00 99 H 22 98 02/01/24 00:03 101 H 29 H 99 02/01/24 00:00 105/62 02/01/24 00:00 105/62 02/01/24 00:00 105/62 02/01/24 00:00 105/62 02/01/24 00:00 40 02/01/24 00:00 107 H 01/31/24 23:45 105 H 20 98 01/31/24 23:38 107 H 26 H 96 40 01/31/24 23:30 98 H 01/31/24 23:06 96 H 23 96 01/31/24 22:54 115 H 23 99/66 L 97 01/31/24 22:26 115 H 01/31/24 22:15 105 H 19 99 01/31/24 22:00 121/67 01/31/24 21:51 111 H 22 98 01/31/24 21:25 115 H 27 H 96 40 01/31/24 21:09 112 H 26 H 94 01/31/24 21:00 116/58 L 01/31/24 21:00 116/58 L 01/31/24 21:00 116/58 L 01/31/24 20:48 109 H 27 H 96 01/31/24 20:06 115 H 26 H 96 01/31/24 20:01 99/60 L 01/31/24 20:01 99/60 L 01/31/24 20:00 37.3 C 01/31/24 20:00 CPAP 01/31/24 20:00 40 01/31/24 19:33 105 H 28 H 97
[2024-02-01] MEDS ORDERED: DIGOXIN 0.25 MG/5 ML UDP PO SCH ×2 (10:00→16:00)
[2024-02-01] MEDS: SODIUM CHLORIDE 0.9% IV ONE (10:09)
[2024-02-01] MEDS: MAGNESIUM SULFATE IV ONE (10:09)
[2024-02-01] MEDS: DIGOXIN ELIXIR 0.05MG/ML PO SCH (12:02)
--- NOTE | 2024-02-01 12:22 | Hospitalist Progress Note ---
Date of Service February 01, 2024 Assessment & Plan (1) Respiratory failure: Plan: Patient was admitted to the hospital and found to be in respiratory failure CT scan of the chest showed evidence of likely aspiration pneumonia completed Zosyn He required intubation and ventilation, was extubated, However failed weaning trial Reintubation 01/25/2024. 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 when able to tolerate PRN Morphine for air hunger Consult speech therapy Continue trach care (2) Low grade fever: Plan: per the RN, the rectal probe showed a slightly higher temp than the oral one, which is wnl Has completed a course of antibiotics anyway (3) Atrial fibrillation with rapid ventricular response: Plan: Patient went into A-fib with RVR Started on Cardizem, Amiodarone and digoxin Currently rate iss under fair control continue IV heparin and metoprolol Cardiology on board (4) Non-ischemic cardiomyopathy: Plan: cardiopulmonary resuscitation with cpr for decompensated cardiogenic shock has required pressors with cardiogenic shock, had been on dobutamine CT head without acute changes heparin gtt now restarted with afib/flutter. In past had thrombus in ventricle Monitor I/O, daily weight (5) History of alcohol abuse: Plan: unclear of last drink, no sign of withdrawal on thiamine also tobacco abuse (6) Physical deconditioning: Plan: Continue physical therapy (7) Acute on chronic HFrEF (heart failure with reduced ejection fraction): Plan Continue to monitor in the ICU, SW sent out referrals for LTAC Admission and Anticipated Discharge Date Admission Date: January 20, 2024 Subjective patient seen and examined, appears in no distress Review of Systems Review of Systems: All systems reviewed are negative, apart from the ones contained in the history. Physical Exam Physical Exam: The patient is awake, alert and oriented 3, trach in situ HEENT--PERRL, EOMI, mucous membranes and oropharynx mildly dry Neck--trach in situ Heart--normal S1 and S2. No murmurs, rubs or gallops. Lungs--clear bilaterally, no respiratory distress, no accessory muscle use. Abdomen--normal bowel sounds and soft. Extremities--no cyanosis or clubbing. No edema. Dermatologic--normal skin turgor, normal color, no abnormal lymph nodes, no rash. Neurologic--cranial nerves II through XII grossly intact. Rheumatologic--normal range of motion. Psychiatric--normal affect. Results & Data Results & Data Vital Signs (Past 12 Hours) Vital Signs Temp Pulse Resp BP Pulse Ox FiO2 02/01/24 12:02 86 02/01/24 09:08 104 H 96 40 02/01/24 08:00 123 H 02/01/24 05:54 98 H 21 120/63 98 02/01/24 05:39 99.3 F 02/01/24 05:00 112 H 20 111/58 L 99 02/01/24 04:38 116 H 31 H 98 40 02/01/24 04:15 98 H 13 98/64 L 97 02/01/24 04:00 40 02/01/24 03:00 108 H 22 105/68 97 02/01/24 02:15 106 H 22 106/52 L 99 02/01/24 01:45 101 H 22 101/51 L 98 02/01/24 01:00 88/61 L 02/01/24 01:00 99 H 22 98 PG Care Time/CCT Total # of Minutes Spent Total Time Spent with Patient: Total time spent is greater than 50% in coordination of care (as documented) at patient's floor/unit and/or counseling patient: Coding Level of Care Code 44031 SUB INP/OBS CARE 2/35MIN Diagnoses Respiratory failure J96.90 Low grade fever R50.9 Atrial fibrillation with rapid ventricular response I48.91 Non-ischemic cardiomyopathy I42.8 History of alcohol abuse F10.11 Physical deconditioning R53.81 Acute on chronic HFrEF (heart failure with reduced ejection fraction) I50.23 Time Spent (min) 35
[2024-02-01 14:56] LABS: BUN Creatinine Ratio 29.2 (10-20); Calcium 8.3 mg/dl (8.6-10.3); Creatinine Clr Calc Pharmacy 136.7 ml/min; Est GFR (African American) 140.8 ml/min; Est GFR (Non-African American) 121.5 ml/min; Magnesium 2.2 mg/dl (1.7-2.4); Potassium 4.5 mmol/L (3.5-5.1)
--- NOTE | 2024-02-01 14:56 | XCELERA ---
[id number]
--- NOTE | 2024-02-01 16:13 | Nephrology Consultation ---
Date of Consultation February 01, 2024 Assessment & Plan (1) Hyponatremia: (2) Cardiogenic shock: (3) Atrial fibrillation with rapid ventricular response: (4) Non-ischemic cardiomyopathy: (5) Acute systolic congestive heart failure, NYHA class 4: Plan 58 yo male with history of A-fib with RVR, hypertension nonischemic cardiomyopathy admitted to hospital with A-fib with RVR, and acute decompensated CHF and witnessed cardiac arrest in the ER after ran out of medication for more than 2 months. Extubated and currently has trach collar. Acute hyponatremia with history of mild chronic hyponatremia serum sodium around 132-134, on admission sodium was 131 which has slowly declined and lately sodium staying around 124 to 125. Urine osmolality elevated at 561. EF dropped further to 15 to 20%. Hyponatremia most likely secondary to high ADH state in the setting of severe cardiomyopathy, CHF and hypertension. -- Start on Lasix 40 mg x 1 dose now and then daily -- Repeat TSH and check T3 and T4, start on levothyroxine if indicated -- Check random cortisol --Serum sodium and urine osmolality in a.m. Thank you for allowing me to participate in your patient's care. History of Present Illness Reason for Consultation: Hyponatremia Attending Physician: Jocelyn Junior MD History of Present Illness Mr. Edilberto Xavier is a 58-year-old male with a past medical history significant for chronic HFrEF, paroxysmal atrial fibrillation, nonischemic cardiomyopathy, hypertension admitted to the hospital with A-fib with RVR and cardiac arrest. Nephrology consult was requested for management of hyponatremia. Electronic medical records were reviewed in detail during patient's visit. Edilberto was admitted on 01/20/2024 after he presented to the hospital with palpitation, shortness of breath and difficulty sleeping. He was reported to be out of all of his medication for 2 months prior to admission including beta- joao, Jardiance and Entresto. While in ER he clinically declined and had witnessed cardiac arrest, and was resuscitated, intubated and transferred to intensive care unit. Eventually he was extubated but again reintubated. He had tracheostomy and currently has trach collar. He has been getting tube feeding. 2D echo this morning showed EF dropped further to 15 to 20% from EF 20 to 25% on admission and prior EF of 40%. Has normal kidney function, baseline creatinine 0.6-0.7 mg/dl. Urinalysis with low-grade proteinuria and microscopic hematuria, sample was from Burk catheter. Urine still somewhat blood-tinged. Since admission his sodium has been low but staying around 130-132 but over last few days sodium has been declining further and this morning sodium was 124. Urine osmolality was 551. TSH was noted to be slightly elevated at 6.5. Has been having decent urine output, overall net negative. Blood pressure has been relatively low. Has long history of heavy smoking and alcohol intake. No personal history of malignancy. Past medical history also notable for hypertension, nonischemic cardiomyopathy, paroxysmal atrial fibrillation, COPD, smoking and alcohol use. He was awake and alert, denied any specific symptoms. Allergies Allergy/AdvReac Type Severity Reaction Status Date / Time No Known Allergies Allergy Unverified 08/10/23 15:40 Home Medications Medication Instructions Recorded Confirmed Type azelastine 137 mcg (0.1 %) nasal 1 spray intranasal BID 08/10/23 01/26/24 History spray carvedilol 25 mg tablet 0 mg PO BID 01/26/24 01/26/24 History furosemide 20 mg tablet 0 mg PO BID 01/26/24 01/26/24 History rivaroxaban 20 mg tablet (Xarelto) 0 mg PO DAILY 01/26/24 01/26/24 History sacubitril 24 mg-valsartan 26 mg 0 tab PO BID 01/26/24 01/26/24 History tablet (Entresto) Patient History Medical History Elevated troponin Acute respiratory failure with hypoxia Hypertensive emergency Elevated troponin Micturition syncope Surgical History No pertinent past surgical history Family History Mother Heart disease Father Coronary heart disease H/O aortic valve replacement Brother Coronary heart disease Social History Smoking Status: Current every day smoker Tobacco Type: Cigarettes Cigarettes Per Day: 20; Second Hand Exposure: No; Do You Dip or Chew Tobacco: No; Preferred Language: [place] Communication Ability: Unable Delivery Driver/Customer Service Required: No Beliefs That Will Affect Care: None Current Living Situation: Other Current Living Situation Comment: Intubated and sedated Feels Safe at Home: Yes Assistive Devices: None Review of Systems Review of Systems: Review of system was unremarkable except mentioned above. Physical Exam Constitutional: WD/WN, vitals as above no acute distress Eyes: + anicteric sclerae ENMT: NG tube in place Neck: Tracheostomy in place. Respiratory: no respiratory distress Auscultation: + crackles Cardiovascular: Heart Sounds: normal S1 and normal S2 Extremities: no edema Gastrointestinal (Abdomen): Inspection/Auscultation: abdomen normal to inspection Percussion/Palpation: abdomen soft; abdomen nontender Musculoskeletal: Extremities: extremities normal to inspection Neurologic: no focal motor deficits Psychiatric: Orientation: alert and cooperative Genitourinary: Burk catheter with blood-tinged urine. Results & Data Vital Signs (Past 12 Hours) Vital Signs Temp Pulse Resp BP Pulse Ox O2 Del Method FiO2 02/01/24 12:06 87 29 H 92 02/01/24 12:02 86 02/01/24 12:00 127/79 02/01/24 11:57 85 29 H 97 02/01/24 11:45 87 96 02/01/24 11:00 126/76 02/01/24 10:57 86 28 H 94 02/01/24 10:06 109 H 26 H 91 02/01/24 10:00 127/70 02/01/24 09:57 116 H 21 95 02/01/24 09:08 104 H 96 40 02/01/24 09:00 111/80 02/01/24 08:57 103 H 21 93 02/01/24 08:03 106/78 02/01/24 08:00 114 H 22 96 02/01/24 08:00 Trach Collar 02/01/24 08:00 123 H 02/01/24 07:00 109/69 02/01/24 06:54 106 H 24 99 02/01/24 05:54 98 H 21 120/63 98 02/01/24 05:39 37.4 C 02/01/24 05:00 112 H 20 111/58 L 99 02/01/24 04:38 116 H 31 H 98 40 02/01/24 04:15 98 H 13 98/64 L 97 PG Care Time/CCT Total # of Minutes Spent Total Time Spent with Patient: Total time spent is greater than 50% in coordination of care (as documented) at patient's floor/unit and/or counseling patient: Coding Level of Care Code 91687 INT INP/OBS CARE 3/75MIN Diagnoses Hyponatremia E87.1 Cardiogenic shock R57.0 Atrial fibrillation with rapid ventricular response I48.91 Non-ischemic cardiomyopathy I42.8 Acute systolic congestive heart failure, NYHA class 4 I50.21
[2024-02-01] MEDS: FUROSEMIDE 40 MG TAB PO SCH (17:07)
[2024-02-01] MEDS: NUTREN LIQD 2.0 1,000 ML BAG NG SCH (17:21)
[2024-02-01] MEDS: CITALOPRAM 20 MG TAB PEG SCH (20:01)
--- NOTE | 2024-02-01 21:37 | Palliative Care Consultation ---
Date of Consultation February 01, 2024 Assessment & Plan (1) Anxiety about health: Discussed options for treatment with patient at the bedside. He acknowledges that he feels the anxiety will be an ongoing problem and intermittent medication on a as needed basis will not be sufficient. After discussing options for treatment, we agreed to a trial of Celexa 20 mg via feeding tube every evening. He is aware this medication will not have an effect right away but we are hopeful within a week or 2 he will start to feel some relief from his generalized anxiety. (2) Dyspnea and respiratory abnormalities: (3) Weakness generalized: (4) Severe muscle deconditioning: (5) Palliative care by specialist: Introduced Palliative Medicine and explained our role in patient's care. Patient and/or family were receptive to palliative services for goals of care discussions. Reviewed we are different from hospice, a home health nurse visiting service. (6) Physical deconditioning: (7) COPD with emphysema: (8) Respiratory failure: (9) Aspiration pneumonia: (10) NAHUN (acute kidney injury): (11) Cardiogenic shock: (12) History of alcohol abuse: (13) Atrial flutter with rapid ventricular response: (14) Atrial fibrillation with rapid ventricular response: (15) Acute on chronic HFrEF (heart failure with reduced ejection fraction): (16) Alcohol use: (17) Paroxysmal atrial fibrillation with RVR: (18) Current smoker: (19) Non-ischemic cardiomyopathy: Plan As above. Patient with some guarding and limited interaction; no overt delirium. Appears to be relatively decisionally intact albeit recalcitrant for engagement in any prolonged discussion. Family contacts for his siblings provided as follows: Fuad - [phone] Kiana/he works 2nd shift [phone]. Pat/is the nurse - and lives out of the area/[phone] [place]/she is nurse [phone], . I will try to make contact with them tomorrow, 02/02/2024. Thank you for allowing us to participate in the ongoing care of this patient. Please page with any additional concerns. Benjie Will DNP Director, Palliative Medicine History of Present Illness Reason for Consultation: VDRF, trach,goals of care Attending Physician: Jocelyn Junior MD History of Present Illness 58 yo male with history of A-fib with RVR, hypertension nonischemic cardiomyopathy admitted to hospital with A-fib with RVR, and acute decompensated CHF and witnessed cardiac arrest in the ER after ran out of medication for more than 2 months. He was intubated, extubated with a failed extubation trial and required reintubation and ultimately a tracheostomy was placed. He remains on a trach collar. During this admission, his EF dropped further to 15 to 20%. He has hyponatremia most likely secondary to high ADH state in the setting of severe cardiomyopathy, CHF and hypertension. Chart review and discussion with staff in the ICU indicate he has a complex psychosocial situation with significant family dynamics and complex relationships with numerous family members. He has been somewhat estranged from his family for several years however during this acute admission, has reconnected with some. He is seen at bedside, no family present. He is awake but quickly drifts off. He is able to answer some simple yes or no questions but otherwise is relatively disengaged and does not answer however he does admit to anxiety and feeling worried about what will happen to him post acute admission Allergies Allergy/AdvReac Type Severity Reaction Status Date / Time No Known Allergies Allergy Unverified 08/10/23 15:40 Home Medications Medication Instructions Recorded Confirmed Type azelastine 137 mcg (0.1 %) nasal 1 spray intranasal BID 08/10/23 01/26/24 Hist ory spray carvedilol 25 mg tablet 0 mg PO BID 01/26/24 01/26/24 History furosemide 20 mg tablet 0 mg PO BID 01/26/24 01/26/24 History rivaroxaban 20 mg tablet (Xarelto) 0 mg PO DAILY 01/26/24 01/26/24 History sacubitril 24 mg-valsartan 26 mg 0 tab PO BID 01/26/24 01/26/24 History tablet (Entresto) Patient History Medical History Elevated troponin Acute respiratory failure with hypoxia Hypertensive emergency Elevated troponin Micturition syncope Surgical History No pertinent past surgical history Family History Mother Heart disease Father Coronary heart disease H/O aortic valve replacement Brother Coronary heart disease Social History Smoking Status: Current every day smoker Tobacco Type: Cigarettes Cigarettes Per Day: 20; Second Hand Exposure: No; Do You Dip or Chew Tobacco: No; Preferred Language: Nigerian Communication Ability: Unable Accounting Methods Analyst Required: No Beliefs That Will Affect Care: None Current Living Situation: Other Current Living Situation Comment: Intubated and sedated Feels Safe at Home: Yes Assistive Devices: None Review of Systems Review of Systems: Unobtainable due to endotracheal tube (Trach) Physical Exam Physical Exam: Chronically critically ill-appearing male, appears older than stated age Bitemporal wasting, thin, cachectic PERRLA, EOMI's + IVF, + tube feedings + Trach, + ventilatory support, FiO2 35% via CPAP Mild increased respiratory effort with a respiratory rate in the 30s Use of accessory muscles noted. Some abdominal breathing noted. There is no stridor. Lungs are diminished with some crackles throughout on a limited anterior exam. He is tachycardic, + murmur, + loud S2 Abdomen is scaphoid. Bowel sounds are present. Generalized weakness Skin is pale, cool to touch Extremities weak, vascular insufficiency changes to the lower extremities, significant muscle deconditioning Patient is awake to voice and alert to self. Will answer some yes/no questions but does quickly drifts back off to sleep. Somewhat difficult to engage in discussion even with yes/no questions [facility] neg Results & Data Vital Signs (Past 12 Hours) Vital Signs Temp Pulse Resp BP Pulse Ox O2 Del Method FiO2 02/01/24 21:01 88 02/01/24 20:03 88 31 H 96 02/01/24 20:00 108/61 02/01/24 20:00 108/61 02/01/24 20:00 CPAP 02/01/24 20:00 35 02/01/24 19:50 89 34 H 99 35 02/01/24 19:48 90 22 97 02/01/24 19:03 88 22 94/52 L 94 02/01/24 18:00 112/61 02/01/24 18:00 89 35 H 95 02/01/24 17:41 37.9 C H 02/01/24 17:18 96 H 29 H 96 02/01/24 17:00 92/51 L 02/01/24 17:00 92/51 L 02/01/24 16:48 100 H 37 H 95 02/01/24 16:12 96 H 33 H 95 02/01/24 16:10 94 H 32 H 89 L 35 02/01/24 16:00 106/56 L 02/01/24 15:54 94 H 30 H 98 02/01/24 15:09 102 H 0 L 90 02/01/24 14:03 88 20 86 L 02/01/24 14:00 136/75 02/01/24 14:00 136/75 02/01/24 14:00 136/75 02/01/24 13:51 88 26 H 94 02/01/24 13:18 92 H 19 90 02/01/24 12:06 87 29 H 92 02/01/24 12:02 86 02/01/24 12:00 36.7 C 02/01/24 12:00 127/79 02/01/24 11:57 85 29 H 97 02/01/24 11:45 87 96 02/01/24 11:00 126/76 02/01/24 10:57 86 28 H 94 02/01/24 10:06 109 H 26 H 91 02/01/24 10:00 127/70 02/01/24 09:57 116 H 21 95 Laboratory Results 02/01/24 02/01/24 02/01/24 Range/Units 18:12 15:40 14:21 WBC (4.8-10.8) K/ul RBC (4.70-6.10) M/uL Hgb (14.0-18.0) g/dl Hct (42.0-52.0) % MCV (80.0-100.0) fL MCH (25.0-34.0) pg MCHC (32.0-36.0) g/dL RDW Std Deviation (36.4-46.3) fL RDW Coeff of Britney (11.5-14.5) % Plt Count (130-400) K/uL MPV (9.4-12.4) fL Immature Gran % (Auto) % Neut % (Auto) % Lymph % (Auto) % [place] % (Auto) % Eos % (Auto) % Baso % (Auto) % Neut # (Auto) (1.40-6.50) K/uL Lymph # (Auto) (1.20-3.40) K/uL [place] # (Auto) (0.11-0.59) K/uL Eos # (Auto) (0.00-0.50) K/uL Baso # (Auto) (0.00-0.20) K/uL Immature Gran # (Auto) (0.01-0.20) K/uL Heparin Anti-Xa, Unfract (0.3-0.7) IU/ml Sodium 124 L (136-145) mmol/L Potassium 4.5 (3.5-5.1) mmol/L Chloride 89 L (98-107) mmol/L Carbon Dioxide 28 (21-32) mmol/L Anion Gap 7 (3-11) BUN 14 (6-23) mg/dl Creatinine 0.48 L (0.6-1.4) mg/dl Est Cr Clr Drug Dosing 136.7 ml/min Est GFR ( Amer) 140.8 ml/min Est GFR (Non-Af Amer) 121.5 ml/min BUN/Creatinine Ratio 29.2 H (10-20) Glucose 165 H (70-99(Fasting)) mg/dl POC Glucose 143 H (70-99) mg/dl Osmolality (280-300) mOsm/kg Calcium 8.3 L (8.6-10.3) mg/dl Phosphorus (2.5-4.9) mg/dl Magnesium 2.2 (1.7-2.4) mg/dl Total Bilirubin (0.2-1.0) mg/dl Direct Bilirubin (0-0.2) mg/dl AST (13-39) U/L ALT (7-52) U/L Alkaline Phosphatase (34-104) U/L B-Natriuretic Peptide (0-100) pg/ml Total Protein (6.0-8.3) gm/dl Albumin (3.4-5.0) gm/dl Globulin (2.5-4.0) gm/dl Albumin/Globulin Ratio (0.9-2) Procalcitonin (0-0.5) ng/ml TSH (0.300-4.500) uIu/ml Free T4 (0.61-1.60) ng/dl Urine Osmolality 551 (500-800) mOsm/kg Stl C. diff Tox B Gene (Neg) Random Vancomycin (10-20) mcg/ml Digoxin (0.8-2.0) ng/ml Adenovirus (PCR) (NotDetected) B. pertussis DNA (PCR) (NotDetected) B.parapertussis DNA PCR (NotDetected) C. pneumoniae DNA (PCR) (NotDetected) Coronavirus OC43 (PCR) (NotDetected) Coronavirus HKU1 (PCR) (NotDetected) Coronavirus 229E (PCR) (NotDetected) SARS-CoV-2 (PCR) (NotDetected) Coronavirus NL63 (PCR) (NotDetected) Human Metapneumovir PCR (NotDetected) Influenza Type A (PCR) (NotDetected) Influenza Type B (PCR) (NotDetected) M. pneumoniae (PCR) (NotDetected) Parainfluenza 1 (PCR) (NotDetected) Parainfluenza 2 (PCR) (NotDetected) Parainfluenza 3 (PCR) (NotDetected) Parainfluenza 4 (PCR) (NotDetected) RSV (PCR) (NotDetected) Resp Virus Cult Rapid Entero/Rhino (PCR) (NotDetected) Viral Specimen Source Bld Cult ID Panel PCR (NotDetected) 02/01/24 02/01/24 02/01/24 Range/Units 12:31 12:04 11:45 WBC (4.8-10.8) K/ul RBC (4.70-6.10) M/uL Hgb (14.0-18.0) g/dl Hct (42.0-52.0) % MCV (80.0-100.0) fL MCH (25.0-34.0) pg MCHC (32.0-36.0) g/dL RDW Std Deviation (36.4-46.3) fL RDW Coeff of Britney (11.5-14.5) % Plt Count (130-400) K/uL MPV (9.4-12.4) fL Immature Gran % (Auto) % Neut % (Auto) % Lymph % (Auto) % [place] % (Auto) % Eos % (Auto) % Baso % (Auto) % Neut # (Auto) (1.40-6.50) K/uL Lymph # (Auto) (1.20-3.40) K/uL [place] # (Auto) (0.11-0.59) K/uL Eos # (Auto) (0.00-0.50) K/uL Baso # (Auto) (0.00-0.20) K/uL Immature Gran # (Auto) (0.01-0.20) K/uL Heparin Anti-Xa, Unfract (0.3-0.7) IU/ml Sodium (136-145) mmol/L Potassium (3.5-5.1) mmol/L Chloride (98-107) mmol/L Carbon Dioxide (21-32) mmol/L Anion Gap (3-11) BUN (6-23) mg/dl Creatinine (0.6-1.4) mg/dl Est Cr Clr Drug Dosing ml/min Est GFR ( Amer) ml/min Est GFR (Non-Af Amer) ml/min BUN/Creatinine Ratio (10-20) Glucose (70-99(Fasting)) mg/dl POC Glucose 134 H (70-99) mg/dl Osmolality 258 L (280-300) mOsm/kg Calcium (8.6-10.3) mg/dl Phosphorus (2.5-4.9) mg/dl Magnesium (1.7-2.4) mg/dl Total Bilirubin (0.2-1.0) mg/dl Direct Bilirubin (0-0.2) mg/dl AST (13-39) U/L ALT (7-52) U/L Alkaline Phosphatase (34-104) U/L B-Natriuretic Peptide 288 H (0-100) pg/ml Total Protein (6.0-8.3) gm/dl Albumin (3.4-5.0) gm/dl Globulin (2.5-4.0) gm/dl Albumin/Globulin Ratio (0.9-2) Procalcitonin (0-0.5) ng/ml TSH (0.300-4.500) uIu/ml Free T4 (0.61-1.60) ng/dl Urine Osmolality (500-800) mOsm/kg Stl C. diff Tox B Gene (Neg) Random Vancomycin (10-20) mcg/ml Digoxin (0.8-2.0) ng/ml Adenovirus (PCR) (NotDetected) B. pertussis DNA (PCR) (NotDetected) B.parapertussis DNA PCR (NotDetected) C. pneumoniae DNA (PCR) (NotDetected) Coronavirus OC43 (PCR) (NotDetected) Coronavirus HKU1 (PCR) (NotDetected) Coronavirus 229E (PCR) (NotDetected) SARS-CoV-2 (PCR) (NotDetected) Coronavirus NL63 (PCR) (NotDetected) Human Metapneumovir PCR (NotDetected) Influenza Type A (PCR) (NotDetected) Influenza Type B (PCR) (NotDetected) M. pneumoniae (PCR) (NotDetected) Parainfluenza 1 (PCR) (NotDetected) Parainfluenza 2 (PCR) (NotDetected) Parainfluenza 3 (PCR) (NotDetected) Parainfluenza 4 (PCR) (NotDetected) RSV (PCR) (NotDetected) Resp Virus Cult Rapid Entero/Rhino (PCR) (NotDetected) Viral Specimen Source Bld Cult ID Panel PCR (NotDetected) 02/01/24 02/01/24 01/31/24 Range/Units 04:51 04:37 23:43 WBC 10.47 (4.8-10.8) K/ul RBC 3.45 L (4.70-6.10) M/uL Hgb 11.8 L (14.0-18.0) g/dl Hct 33.6 L (42.0-52.0) % MCV 97.4 (80.0-100.0) fL MCH 34.2 H (25.0-34.0) pg MCHC 35.1 (32.0-36.0) g/dL RDW Std Deviation 48.1 H (36.4-46.3) fL RDW Coeff of Britney 13.4 (11.5-14.5) % Plt Count 299 (130-400) K/uL MPV 10.3 (9.4-12.4) fL Immature Gran % (Auto) 4.2 % Neut % (Auto) 72.3 % Lymph % (Auto) 10.7 % [place] % (Auto) 11.1 % Eos % (Auto) 0.9 % Baso % (Auto) 0.8 % Neut # (Auto) 7.58 H (1.40-6.50) K/uL Lymph # (Auto) 1.12 L (1.20-3.40) K/uL [place] # (Auto) 1.16 H (0.11-0.59) K/uL Eos # (Auto) 0.09 (0.00-0.50) K/uL Baso # (Auto) 0.08 (0.00-0.20) K/uL Immature Gran # (Auto) 0.44 H (0.01-0.20) K/uL Heparin Anti-Xa, Unfract 0.51 (0.3-0.7) IU/ml Sodium 124 L (136-145) mmol/L Potassium 3.8 (3.5-5.1) mmol/L Chloride 90 L (98-107) mmol/L Carbon Dioxide 28 (21-32) mmol/L Anion Gap 6 (3-11) BUN 15 (6-23) mg/dl Creatinine 0.45 L (0.6-1.4) mg/dl Est Cr Clr Drug Dosing 148.8 ml/min Est GFR ( Amer) 144.6 ml/min Est GFR (Non-Af Amer) 124.7 ml/min BUN/Creatinine Ratio 33.3 H (10-20) Glucose 147 H (70-99(Fasting)) mg/dl POC Glucose 145 H (70-99) mg/dl Osmolality (280-300) mOsm/kg Calcium 8.0 L (8.6-10.3) mg/dl Phosphorus 3.0 (2.5-4.9) mg/dl Magnesium 1.8 (1.7-2.4) mg/dl Total Bilirubin (0.2-1.0) mg/dl Direct Bilirubin (0-0.2) mg/dl AST (13-39) U/L ALT (7-52) U/L Alkaline Phosphatase (34-104) U/L B-Natriuretic Peptide (0-100) pg/ml Total Protein (6.0-8.3) gm/dl Albumin (3.4-5.0) gm/dl Globulin (2.5-4.0) gm/dl Albumin/Globulin Ratio (0.9-2) Procalcitonin (0-0.5) ng/ml TSH (0.300-4.500) uIu/ml Free T4 (0.61-1.60) ng/dl Urine Osmolality (500-800) mOsm/kg Stl C. diff Tox B Gene (Neg) Random Vancomycin (10-20) mcg/ml Digoxin (0.8-2.0) ng/ml Adenovirus (PCR) (NotDetected) B. pertussis DNA (PCR) (NotDetected) B.parapertussis DNA PCR (NotDetected) C. pneumoniae DNA (PCR) (NotDetected) Coronavirus OC43 (PCR) (NotDetected) Coronavirus HKU1 (PCR) (NotDetected) Coronavirus 229E (PCR) (NotDetected) SARS-CoV-2 (PCR) (NotDetected) Coronavirus NL63 (PCR) (NotDetected) Human Metapneumovir PCR (NotDetected) Influenza Type A (PCR) (NotDetected) Influenza Type B (PCR) (NotDetected) M. pneumoniae (PCR) (NotDetected) Parainfluenza 1 (PCR) (NotDetected) Parainfluenza 2 (PCR) (NotDetected) Parainfluenza 3 (PCR) (NotDetected) Parainfluenza 4 (PCR) (NotDetected) RSV (PCR) (NotDetected) Resp Virus Cult Rapid Entero/Rhino (PCR) (NotDetected) Viral Specimen Source Bld Cult ID Panel PCR (NotDetected) 01/31/24 01/31/24 01/31/24 Range/Units 17:16 16:11 11:59 WBC (4.8-10.8) K/ul RBC (4.70-6.10) M/uL Hgb (14.0-18.0) g/dl Hct (42.0-52.0) % MCV (80.0-100.0) fL MCH (25.0-34.0) pg MCHC (32.0-36.0) g/dL RDW Std Deviation (36.4-46.3) fL RDW Coeff of Britney (11.5-14.5) % Plt Count (130-400) K/uL MPV (9.4-12.4) fL Immature Gran % (Auto) % Neut % (Auto) % Lymph % (Auto) % [place] % (Auto) % Eos % (Auto) % Baso % (Auto) % Neut # (Auto) (1.40-6.50) K/uL Lymph # (Auto) (1.20-3.40) K/uL [place] # (Auto) (0.11-0.59) K/uL Eos # (Auto) (0.00-0.50) K/uL Baso # (Auto) (0.00-0.20) K/uL Immature Gran # (Auto) (0.01-0.20) K/uL Heparin Anti-Xa, Unfract (0.3-0.7) IU/ml Sodium 125 L (136-145) mmol/L Potassium 4.3 D (3.5-5.1) mmol/L Chloride 87 L (98-107) mmol/L Carbon Dioxide 25 (21-32) mmol/L Anion Gap 13 H (3-11) BUN 14 (6-23) mg/dl Creatinine 0.55 L (0.6-1.4) mg/dl Est Cr Clr Drug Dosing 121.8 ml/min Est GFR ( Amer) 133.1 ml/min Est GFR (Non-Af Amer) 114.9 ml/min BUN/Creatinine Ratio 25.5 H (10-20) Glucose 143 H (70-99(Fasting)) mg/dl POC Glucose 204 H (70-99) mg/dl Osmolality (280-300) mOsm/kg Calcium 8.5 L (8.6-10.3) mg/dl Phosphorus (2.5-4.9) mg/dl Magnesium (1.7-2.4) mg/dl Total Bilirubin (0.2-1.0) mg/dl Direct Bilirubin (0-0.2) mg/dl AST (13-39) U/L ALT (7-52) U/L Alkaline Phosphatase (34-104) U/L B-Natriuretic Peptide (0-100) pg/ml Total Protein (6.0-8.3) gm/dl Albumin (3.4-5.0) gm/dl Globulin (2.5-4.0) gm/dl Albumin/Globulin Ratio (0.9-2) Procalcitonin (0-0.5) ng/ml TSH (0.300-4.500) uIu/ml Free T4 (0.61-1.60) ng/dl Urine Osmolality (500-800) mOsm/kg Stl C. diff Tox B Gene (Neg) Random Vancomycin (10-20) mcg/ml Digoxin 0.4 L (0.8-2.0) ng/ml Adenovirus (PCR) (NotDetected) B. pertussis DNA (PCR) (NotDetected) B.parapertussis DNA PCR (NotDetected) C. pneumoniae DNA (PCR) (NotDetected) Coronavirus OC43 (PCR) (NotDetected) Coronavirus HKU1 (PCR) (NotDetected) Coronavirus 229E (PCR) (NotDetected) SARS-CoV-2 (PCR) (NotDetected) Coronavirus NL63 (PCR) (NotDetected) Human Metapneumovir PCR (NotDetected) Influenza Type A (PCR) (NotDetected) Influenza Type B (PCR) (NotDetected) M. pneumoniae (PCR) (NotDetected) Parainfluenza 1 (PCR) (NotDetected) Parainfluenza 2 (PCR) (NotDetected) Parainfluenza 3 (PCR) (NotDetected) Parainfluenza 4 (PCR) (NotDetected) RSV (PCR) (NotDetected) Resp Virus Cult Rapid Entero/Rhino (PCR) (NotDetected) Viral Specimen Source Bld Cult ID Panel PCR (NotDetected) 01/31/24 01/31/24 01/31/24 Range/Units 11:36 09:02 08:35 WBC (4.8-10.8) K/ul RBC (4.70-6.10) M/uL Hgb (14.0-18.0) g/dl Hct (42.0-52.0) % MCV (80.0-100.0) fL MCH (25.0-34.0) pg MCHC (32.0-36.0) g/dL RDW Std Deviation (36.4-46.3) fL RDW Coeff of Britney (11.5-14.5) % Plt Count (130-400) K/uL MPV (9.4-12.4) fL Immature Gran % (Auto) % Neut % (Auto) % Lymph % (Auto) % [place] % (Auto) % Eos % (Auto) % Baso % (Auto) % Neut # (Auto) (1.40-6.50) K/uL Lymph # (Auto) (1.20-3.40) K/uL [place] # (Auto) (0.11-0.59) K/uL Eos # (Auto) (0.00-0.50) K/uL Baso # (Auto) (0.00-0.20) K/uL Immature Gran # (Auto) (0.01-0.20) K/uL Heparin Anti-Xa, Unfract (0.3-0.7) IU/ml Sodium (136-145) mmol/L Potassium (3.5-5.1) mmol/L Chloride (98-107) mmol/L Carbon Dioxide (21-32) mmol/L Anion Gap (3-11) BUN (6-23) mg/dl Creatinine (0.6-1.4) mg/dl Est Cr Clr Drug Dosing ml/min Est GFR ( Amer) ml/min Est GFR (Non-Af Amer) ml/min BUN/Creatinine Ratio (10-20) Glucose (70-99(Fasting)) mg/dl POC Glucose 154 H (70-99) mg/dl Osmolality (280-300) mOsm/kg Calcium (8.6-10.3) mg/dl Phosphorus (2.5-4.9) mg/dl Magnesium (1.7-2.4) mg/dl Total Bilirubin (0.2-1.0) mg/dl Direct Bilirubin (0-0.2) mg/dl AST (13-39) U/L ALT (7-52) U/L Alkaline Phosphatase (34-104) U/L B-Natriuretic Peptide (0-100) pg/ml Total Protein (6.0-8.3) gm/dl Albumin (3.4-5.0) gm/dl Globulin (2.5-4.0) gm/dl Albumin/Globulin Ratio (0.9-2) Procalcitonin 0.45 (0-0.5) ng/ml TSH (0.300-4.500) uIu/ml Free T4 (0.61-1.60) ng/dl Urine Osmolality (500-800) mOsm/kg Stl C. diff Tox B Gene (Neg) Random Vancomycin (10-20) mcg/ml Digoxin (0.8-2.0) ng/ml Adenovirus (PCR) Not Detected (NotDetected) B. pertussis DNA (PCR) Not Detected (NotDetected) B.parapertussis DNA PCR Not Detected (NotDetected) C. pneumoniae DNA (PCR) Not Detected (NotDetected) Coronavirus OC43 (PCR) Not Detected (NotDetected) Coronavirus HKU1 (PCR) Not Detected (NotDetected) Coronavirus 229E (PCR) Not Detected (NotDetected) SARS-CoV-2 (PCR) Not Detected (NotDetected) Coronavirus NL63 (PCR) Not Detected (NotDetected) Human Metapneumovir PCR Not Detected (NotDetected) Influenza Type A (PCR) Not Detected (NotDetected) Influenza Type B (PCR) Not Detected (NotDetected) M. pneumoniae (PCR) Not Detected (NotDetected) Parainfluenza 1 (PCR) Not Detected (NotDetected) Parainfluenza 2 (PCR) Not Detected (NotDetected) Parainfluenza 3 (PCR) Not Detected (NotDetected) Parainfluenza 4 (PCR) Not Detected (NotDetected) RSV (PCR) Not Detected (NotDetected) Resp Virus Cult Rapid Entero/Rhino (PCR) Not Detected (NotDetected) Viral Specimen Source Bld Cult ID Panel PCR (NotDetected) 01/31/24 01/31/24 01/31/24 Range/Units 05:38 04:47 04:47 WBC (4.8-10.8) K/ul RBC (4.70-6.10) M/uL Hgb (14.0-18.0) g/dl Hct (42.0-52.0) % MCV (80.0-100.0) fL MCH (25.0-34.0) pg MCHC (32.0-36.0) g/dL RDW Std Deviation (36.4-46.3) fL RDW Coeff of Britney (11.5-14.5) % Plt Count (130-400) K/uL MPV (9.4-12.4) fL Immature Gran % (Auto) % Neut % (Auto) % Lymph % (Auto) % [place] % (Auto) % Eos % (Auto) % Baso % (Auto) % Neut # (Auto) (1.40-6.50) K/uL Lymph # (Auto) (1.20-3.40) K/uL [place] # (Auto) (0.11-0.59) K/uL Eos # (Auto) (0.00-0.50) K/uL Baso # (Auto) (0.00-0.20) K/uL Immature Gran # (Auto) (0.01-0.20) K/uL Heparin Anti-Xa, Unfract (0.3-0.7) IU/ml Sodium (136-145) mmol/L Potassium (3.5-5.1) mmol/L Chloride (98-107) mmol/L Carbon Dioxide (21-32) mmol/L Anion Gap (3-11) BUN (6-23) mg/dl Creatinine (0.6-1.4) mg/dl Est Cr Clr Drug Dosing ml/min Est GFR ( Amer) ml/min Est GFR (Non-Af Amer) ml/min BUN/Creatinine Ratio (10-20) Glucose (70-99(Fasting)) mg/dl POC Glucose 162 H (70-99) mg/dl Osmolality (280-300) mOsm/kg Calcium (8.6-10.3) mg/dl Phosphorus (2.5-4.9) mg/dl Magnesium (1.7-2.4) mg/dl Total Bilirubin (0.2-1.0) mg/dl Direct Bilirubin (0-0.2) mg/dl AST (13-39) U/L ALT (7-52) U/L Alkaline Phosphatase (34-104) U/L B-Natriuretic Peptide (0-100) pg/ml Total Protein (6.0-8.3) gm/dl Albumin Cancelled (3.4-5.0) gm/dl Globulin (2.5-4.0) gm/dl Albumin/Globulin Ratio (0.9-2) Procalcitonin (0-0.5) ng/ml TSH Cancelled 6.020 H (0.300-4.500) uIu/ml Free T4 0.89 (0.61-1.60) ng/dl Urine Osmolality (500-800) mOsm/kg Stl C. diff Tox B Gene (Neg) Random Vancomycin (10-20) mcg/ml Digoxin (0.8-2.0) ng/ml Adenovirus (PCR) (NotDetected) B. pertussis DNA (PCR) (NotDetected) B.parapertussis DNA PCR (NotDetected) C. pneumoniae DNA (PCR) (NotDetected) Coronavirus OC43 (PCR) (NotDetected) Coronavirus HKU1 (PCR) (NotDetected) Coronavirus 229E (PCR) (NotDetected) SARS-CoV-2 (PCR) (NotDetected) Coronavirus NL63 (PCR) (NotDetected) Human Metapneumovir PCR (NotDetected) Influenza Type A (PCR) (NotDetected) Influenza Type B (PCR) (NotDetected) M. pneumoniae (PCR) (NotDetected) Parainfluenza 1 (PCR) (NotDetected) Parainfluenza 2 (PCR) (NotDetected) Parainfluenza 3 (PCR) (NotDetected) Parainfluenza 4 (PCR) (NotDetected) RSV (PCR) (NotDetected) Resp Virus Cult Rapid Entero/Rhino (PCR) (NotDetected) Viral Specimen Source Bld Cult ID Panel PCR (NotDetected) 01/31/24 01/31/24 01/31/24 Range/Units 04:47 04:47 04:47 WBC (4.8-10.8) K/ul RBC (4.70-6.10) M/uL Hgb (14.0-18.0) g/dl Hct (42.0-52.0) % MCV (80.0-100.0) fL MCH (25.0-34.0) pg MCHC (32.0-36.0) g/dL RDW Std Deviation (36.4-46.3) fL RDW Coeff of Britney (11.5-14.5) % Plt Count (130-400) K/uL MPV (9.4-12.4) fL Immature Gran % (Auto) % Neut % (Auto) % Lymph % (Auto) % [place] % (Auto) % Eos % (Auto) % Baso % (Auto) % Neut # (Auto) (1.40-6.50) K/uL Lymph # (Auto) (1.20-3.40) K/uL [place] # (Auto) (0.11-0.59) K/uL Eos # (Auto) (0.00-0.50) K/uL Baso # (Auto) (0.00-0.20) K/uL Immature Gran # (Auto) (0.01-0.20) K/uL Heparin Anti-Xa, Unfract (0.3-0.7) IU/ml Sodium (136-145) mmol/L Potassium (3.5-5.1) mmol/L Chloride (98-107) mmol/L Carbon Dioxide (21-32) mmol/L Anion Gap (3-11) BUN (6-23) mg/dl Creatinine (0.6-1.4) mg/dl Est Cr Clr Drug Dosing ml/min Est GFR ( Amer) ml/min Est GFR (Non-Af Amer) ml/min BUN/Creatinine Ratio (10-20) Glucose (70-99(Fasting)) mg/dl POC Glucose (70-99) mg/dl Osmolality (280-300) mOsm/kg Calcium (8.6-10.3) mg/dl Phosphorus (2.5-4.9) mg/dl Magnesium (1.7-2.4) mg/dl Total Bilirubin (0.2-1.0) mg/dl Direct Bilirubin (0-0.2) mg/dl AST (13-39) U/L ALT Cancelled (7-52) U/L Alkaline Phosphatase Cancelled 75 (34-104) U/L B-Natriuretic Peptide (0-100) pg/ml Total Protein Cancelled 5.0 L (6.0-8.3) gm/dl Albumin 2.7 L (3.4-5.0) gm/dl Globulin (2.5-4.0) gm/dl Albumin/Globulin Ratio (0.9-2) Procalcitonin (0-0.5) ng/ml TSH (0.300-4.500) uIu/ml Free T4 (0.61-1.60) ng/dl Urine Osmolality (500-800) mOsm/kg Stl C. diff Tox B Gene (Neg) Random Vancomycin (10-20) mcg/ml Digoxin (0.8-2.0) ng/ml Adenovirus (PCR) (NotDetected) B. pertussis DNA (PCR) (NotDetected) B.parapertussis DNA PCR (NotDetected) C. pneumoniae DNA (PCR) (NotDetected) Coronavirus OC43 (PCR) (NotDetected) Coronavirus HKU1 (PCR) (NotDetected) Coronavirus 229E (PCR) (NotDetected) SARS-CoV-2 (PCR) (NotDetected) Coronavirus NL63 (PCR) (NotDetected) Human Metapneumovir PCR (NotDetected) Influenza Type A (PCR) (NotDetected) Influenza Type B (PCR) (NotDetected) M. pneumoniae (PCR) (NotDetected) Parainfluenza 1 (PCR) (NotDetected) Parainfluenza 2 (PCR) (NotDetected) Parainfluenza 3 (PCR) (NotDetected) Parainfluenza 4 (PCR) (NotDetected) RSV (PCR) (NotDetected) Resp Virus Cult Rapid Entero/Rhino (PCR) (NotDetected) Viral Specimen Source Bld Cult ID Panel PCR (NotDetected) 01/31/24 01/31/24 01/31/24 Range/Units 04:47 04:47 04:47 WBC (4.8-10.8) K/ul RBC (4.70-6.10) M/uL Hgb (14.0-18.0) g/dl Hct (42.0-52.0) % MCV (80.0-100.0) fL MCH (25.0-34.0) pg MCHC (32.0-36.0) g/dL RDW Std Deviation (36.4-46.3) fL RDW Coeff of Britney (11.5-14.5) % Plt Count (130-400) K/uL MPV (9.4-12.4) fL Immature Gran % (Auto) % Neut % (Auto) % Lymph % (Auto) % [place] % (Auto) % Eos % (Auto) % Baso % (Auto) % Neut # (Auto) (1.40-6.50) K/uL Lymph # (Auto) (1.20-3.40) K/uL [place] # (Auto) (0.11-0.59) K/uL Eos # (Auto) (0.00-0.50) K/uL Baso # (Auto) (0.00-0.20) K/uL Immature Gran # (Auto) (0.01-0.20) K/uL Heparin Anti-Xa, Unfract (0.3-0.7) IU/ml Sodium (136-145) mmol/L Potassium (3.5-5.1) mmol/L Chloride (98-107) mmol/L Carbon Dioxide (21-32) mmol/L Anion Gap (3-11) BUN (6-23) mg/dl Creatinine (0.6-1.4) mg/dl Est Cr Clr Drug Dosing ml/min Est GFR ( Amer) ml/min Est GFR (Non-Af Amer) ml/min BUN/Creatinine Ratio (10-20) Glucose (70-99(Fasting)) mg/dl POC Glucose (70-99) mg/dl Osmolality (280-300) mOsm/kg Calcium (8.6-10.3) mg/dl Phosphorus (2.5-4.9) mg/dl Magnesium (1.7-2.4) mg/dl Total Bilirubin Cancelled (0.2-1.0) mg/dl Direct Bilirubin Cancelled 0.8 H (0-0.2) mg/dl AST Cancelled 22 (13-39) U/L ALT 24 (7-52) U/L Alkaline Phosphatase (34-104) U/L B-Natriuretic Peptide (0-100) pg/ml Total Protein (6.0-8.3) gm/dl Albumin (3.4-5.0) gm/dl Globulin (2.5-4.0) gm/dl Albumin/Globulin Ratio (0.9-2) Procalcitonin (0-0.5) ng/ml TSH (0.300-4.500) uIu/ml Free T4 (0.61-1.60) ng/dl Urine Osmolality (500-800) mOsm/kg Stl C. diff Tox B Gene (Neg) Random Vancomycin (10-20) mcg/ml Digoxin (0.8-2.0) ng/ml Adenovirus (PCR) (NotDetected) B. pertussis DNA (PCR) (NotDetected) B.parapertussis DNA PCR (NotDetected) C. pneumoniae DNA (PCR) (NotDetected) Coronavirus OC43 (PCR) (NotDetected) Coronavirus HKU1 (PCR) (NotDetected) Coronavirus 229E (PCR) (NotDetected) SARS-CoV-2 (PCR) (NotDetected) Coronavirus NL63 (PCR) (NotDetected) Human Metapneumovir PCR (NotDetected) Influenza Type A (PCR) (NotDetected) Influenza Type B (PCR) (NotDetected) M. pneumoniae (PCR) (NotDetected) Parainfluenza 1 (PCR) (NotDetected) Parainfluenza 2 (PCR) (NotDetected) Parainfluenza 3 (PCR) (NotDetected) Parainfluenza 4 (PCR) (NotDetected) RSV (PCR) (NotDetected) Resp Virus Cult Rapid Entero/Rhino (PCR) (NotDetected) Viral Specimen Source Bld Cult ID Panel PCR (NotDetected) 01/31/24 01/31/24 01/30/24 Range/Units 04:47 04:44 23:15 WBC 13.05 H (4.8-10.8) K/ul RBC 3.61 L (4.70-6.10) M/uL Hgb 12.2 L (14.0-18.0) g/dl Hct 35.3 L (42.0-52.0) % MCV 97.8 (80.0-100.0) fL MCH 33.8 (25.0-34.0) pg MCHC 34.6 (32.0-36.0) g/dL RDW Std Deviation 48.1 H (36.4-46.3) fL RDW Coeff of Britney 13.5 (11.5-14.5) % Plt Count 233 (130-400) K/uL MPV 10.7 (9.4-12.4) fL Immature Gran % (Auto) 3.0 % Neut % (Auto) 79.7 % Lymph % (Auto) 7.0 % [place] % (Auto) 9.0 % Eos % (Auto) 0.8 % Baso % (Auto) 0.5 % Neut # (Auto) 10.40 H (1.40-6.50) K/uL Lymph # (Auto) 0.92 L (1.20-3.40) K/uL [place] # (Auto) 1.17 H (0.11-0.59) K/uL Eos # (Auto) 0.10 (0.00-0.50) K/uL Baso # (Auto) 0.07 (0.00-0.20) K/uL Immature Gran # (Auto) 0.39 H (0.01-0.20) K/uL Heparin Anti-Xa, Unfract 0.53 (0.3-0.7) IU/ml Sodium 124 L (136-145) mmol/L Potassium 3.4 L (3.5-5.1) mmol/L Chloride 89 L (98-107) mmol/L Carbon Dioxide 29 (21-32) mmol/L Anion Gap 6 (3-11) BUN 13 (6-23) mg/dl Creatinine 0.40 L (0.6-1.4) mg/dl Est Cr Clr Drug Dosing 167.4 ml/min Est GFR ( Amer) > 150.0 ml/min Est GFR (Non-Af Amer) 130.9 ml/min BUN/Creatinine Ratio 32.5 H (10-20) Glucose 152 H (70-99(Fasting)) mg/dl POC Glucose 148 H (70-99) mg/dl Osmolality (280-300) mOsm/kg Calcium 7.7 L (8.6-10.3) mg/dl Phosphorus 3.7 (2.5-4.9) mg/dl Magnesium 1.7 (1.7-2.4) mg/dl Total Bilirubin 2.2 H (0.2-1.0) mg/dl Direct Bilirubin (0-0.2) mg/dl AST (13-39) U/L ALT (7-52) U/L Alkaline Phosphatase (34-104) U/L B-Natriuretic Peptide (0-100) pg/ml Total Protein (6.0-8.3) gm/dl Albumin (3.4-5.0) gm/dl Globulin (2.5-4.0) gm/dl Albumin/Globulin Ratio (0.9-2) Procalcitonin (0-0.5) ng/ml TSH (0.300-4.500) uIu/ml Free T4 (0.61-1.60) ng/dl Urine Osmolality (500-800) mOsm/kg Stl C. diff Tox B Gene (Neg) Random Vancomycin (10-20) mcg/ml Digoxin (0.8-2.0) ng/ml Adenovirus (PCR) (NotDetected) B. pertussis DNA (PCR) (NotDetected) B.parapertussis DNA PCR (NotDetected) C. pneumoniae DNA (PCR) (NotDetected) Coronavirus OC43 (PCR) (NotDetected) Coronavirus HKU1 (PCR) (NotDetected) Coronavirus 229E (PCR) (NotDetected) SARS-CoV-2 (PCR) (NotDetected) Coronavirus NL63 (PCR) (NotDetected) Human Metapneumovir PCR (NotDetected) Influenza Type A (PCR) (NotDetected) Influenza Type B (PCR) (NotDetected) M. pneumoniae (PCR) (NotDetected) Parainfluenza 1 (PCR) (NotDetected) Parainfluenza 2 (PCR) (NotDetected) Parainfluenza 3 (PCR) (NotDetected) Parainfluenza 4 (PCR) (NotDetected) RSV (PCR) (NotDetected) Resp Virus Cult Rapid Entero/Rhino (PCR) (NotDetected) Viral Specimen Source Bld Cult ID Panel PCR (NotDetected) 09/22/24 09/22/24 09/22/24 Range/Units 17:52 12:22 05:17 WBC (4.8-10.8) K/ul RBC (4.70-6.10) M/uL Hgb (14.0-18.0) g/dl Hct (42.0-52.0) % MCV (80.0-100.0) fL MCH (25.0-34.0) pg MCHC (32.0-36.0) g/dL RDW Std Deviation (36.4-46.3) fL RDW Coeff of Britney (11.5-14.5) % Plt Count (130-400) K/uL MPV (9.4-12.4) fL Immature Gran % (Auto) % Neut % (Auto) % Lymph % (Auto) % [place] % (Auto) % Eos % (Auto) % Baso % (Auto) % Neut # (Auto) (1.40-6.50) K/uL Lymph # (Auto) (1.20-3.40) K/uL [place] # (Auto) (0.11-0.59) K/uL Eos # (Auto) (0.00-0.50) K/uL Baso # (Auto) (0.00-0.20) K/uL Immature Gran # (Auto) (0.01-0.20) K/uL Heparin Anti-Xa, Unfract (0.3-0.7) IU/ml Sodium (136-145) mmol/L Potassium (3.5-5.1) mmol/L Chloride (98-107) mmol/L Carbon Dioxide (21-32) mmol/L Anion Gap (3-11) BUN (6-23) mg/dl Creatinine (0.6-1.4) mg/dl Est Cr Clr Drug Dosing ml/min Est GFR ( Amer) ml/min Est GFR (Non-Af Amer) ml/min BUN/Creatinine Ratio (10-20) Glucose (70-99(Fasting)) mg/dl POC Glucose 154 H 230 H 154 H (70-99) mg/dl Osmolality (280-300) mOsm/kg Calcium (8.6-10.3) mg/dl Phosphorus (2.5-4.9) mg/dl Magnesium (1.7-2.4) mg/dl Total Bilirubin (0.2-1.0) mg/dl Direct Bilirubin (0-0.2) mg/dl AST (13-39) U/L ALT (7-52) U/L Alkaline Phosphatase (34-104) U/L B-Natriuretic Peptide (0-100) pg/ml Total Protein (6.0-8.3) gm/dl Albumin (3.4-5.0) gm/dl Globulin (2.5-4.0) gm/dl Albumin/Globulin Ratio (0.9-2) Procalcitonin (0-0.5) ng/ml TSH (0.300-4.500) uIu/ml Free T4 (0.61-1.60) ng/dl Urine Osmolality (500-800) mOsm/kg Stl C. diff Tox B Gene (Neg) Random Vancomycin (10-20) mcg/ml Digoxin (0.8-2.0) ng/ml Adenovirus (PCR) (NotDetected) B. pertussis DNA (PCR) (NotDetected) B.parapertussis DNA PCR (NotDetected) C. pneumoniae DNA (PCR) (NotDetected) Coronavirus OC43 (PCR) (NotDetected) Coronavirus HKU1 (PCR) (NotDetected) Coronavirus 229E (PCR) (NotDetected) SARS-CoV-2 (PCR) (NotDetected) Coronavirus NL63 (PCR) (NotDetected) Human Metapneumovir PCR (NotDetected) Influenza Type A (PCR) (NotDetected) Influenza Type B (PCR) (NotDetected) M. pneumoniae (PCR) (NotDetected) Parainfluenza 1 (PCR) (NotDetected) Parainfluenza 2 (PCR) (NotDetected) Parainfluenza 3 (PCR) (NotDetected) Parainfluenza 4 (PCR) (NotDetected) RSV (PCR) (NotDetected) Resp Virus Cult Rapid Entero/Rhino (PCR) (NotDetected) Viral Specimen Source Bld Cult ID Panel PCR (NotDetected) 01/30/24 01/30/24 01/29/24 Range/Units 04:09 00:25 18:12 WBC 12.13 H (4.8-10.8) K/ul RBC 3.58 L (4.70-6.10) M/uL Hgb 12.1 L (14.0-18.0) g/dl Hct 35.3 L (42.0-52.0) % MCV 98.6 (80.0-100.0) fL MCH 33.8 (25.0-34.0) pg MCHC 34.3 (32.0-36.0) g/dL RDW Std Deviation 49.7 H (36.4-46.3) fL RDW Coeff of Britney 13.8 (11.5-14.5) % Plt Count 199 (130-400) K/uL MPV 10.9 (9.4-12.4) fL Immature Gran % (Auto) 3.6 % Neut % (Auto) 80.0 % Lymph % (Auto) 7.4 % [place] % (Auto) 7.3 % Eos % (Auto) 1.0 % Baso % (Auto) 0.7 % Neut # (Auto) 9.70 H (1.40-6.50) K/uL Lymph # (Auto) 0.90 L (1.20-3.40) K/uL [place] # (Auto) 0.88 H (0.11-0.59) K/uL Eos # (Auto) 0.12 (0.00-0.50) K/uL Baso # (Auto) 0.09 (0.00-0.20) K/uL Immature Gran # (Auto) 0.44 H (0.01-0.20) K/uL Heparin Anti-Xa, Unfract 0.40 (0.3-0.7) IU/ml Sodium 129 L (136-145) mmol/L Potassium 3.7 (3.5-5.1) mmol/L Chloride 97 L (98-107) mmol/L Carbon Dioxide 26 (21-32) mmol/L Anion Gap 6 (3-11) BUN 13 (6-23) mg/dl Creatinine 0.43 L (0.6-1.4) mg/dl Est Cr Clr Drug Dosing 153.6 ml/min Est GFR ( Amer) 147.3 ml/min Est GFR (Non-Af Amer) 127.1 ml/min BUN/Creatinine Ratio 30.2 H (10-20) Glucose 150 H (70-99(Fasting)) mg/dl POC Glucose 145 H 162 H (70-99) mg/dl Osmolality (280-300) mOsm/kg Calcium 7.9 L (8.6-10.3) mg/dl Phosphorus 2.8 (2.5-4.9) mg/dl Magnesium 1.7 (1.7-2.4) mg/dl Total Bilirubin (0.2-1.0) mg/dl Direct Bilirubin (0-0.2) mg/dl AST (13-39) U/L ALT (7-52) U/L Alkaline Phosphatase (34-104) U/L B-Natriuretic Peptide (0-100) pg/ml Total Protein (6.0-8.3) gm/dl Albumin (3.4-5.0) gm/dl Globulin (2.5-4.0) gm/dl Albumin/Globulin Ratio (0.9-2) Procalcitonin (0-0.5) ng/ml TSH (0.300-4.500) uIu/ml Free T4 (0.61-1.60) ng/dl Urine Osmolality (500-800) mOsm/kg Stl C. diff Tox B Gene (Neg) Random Vancomycin (10-20) mcg/ml Digoxin (0.8-2.0) ng/ml Adenovirus (PCR) (NotDetected) B. pertussis DNA (PCR) (NotDetected) B.parapertussis DNA PCR (NotDetected) C. pneumoniae DNA (PCR) (NotDetected) Coronavirus OC43 (PCR) (NotDetected) Coronavirus HKU1 (PCR) (NotDetected) Coronavirus 229E (PCR) (NotDetected) SARS-CoV-2 (PCR) (NotDetected) Coronavirus NL63 (PCR) (NotDetected) Human Metapneumovir PCR (NotDetected) Influenza Type A (PCR) (NotDetected) Influenza Type B (PCR) (NotDetected) M. pneumoniae (PCR) (NotDetected) Parainfluenza 1 (PCR) (NotDetected) Parainfluenza 2 (PCR) (NotDetected) Parainfluenza 3 (PCR) (NotDetected) Parainfluenza 4 (PCR) (NotDetected) RSV (PCR) (NotDetected) Resp Virus Cult Rapid Entero/Rhino (PCR) (NotDetected) Viral Specimen Source Bld Cult ID Panel PCR (NotDetected) 01/29/24 01/29/24 01/29/24 Range/Units 12:22 06:11 05:24 WBC 11.49 H (4.8-10.8) K/ul RBC 3.65 L (4.70-6.10) M/uL Hgb 12.4 L (14.0-18.0) g/dl Hct 35.9 L (42.0-52.0) % MCV 98.4 (80.0-100.0) fL MCH 34.0 (25.0-34.0) pg MCHC 34.5 (32.0-36.0) g/dL RDW Std Deviation 49.5 H (36.4-46.3) fL RDW Coeff of Britney 13.7 (11.5-14.5) % Plt Count 160 (130-400) K/uL MPV 10.8 (9.4-12.4) fL Immature Gran % (Auto) 3.9 % Neut % (Auto) 80.6 % Lymph % (Auto) 7.7 % [place] % (Auto) 6.4 % Eos % (Auto) 0.9 % Baso % (Auto) 0.5 % Neut # (Auto) 9.26 H (1.40-6.50) K/uL Lymph # (Auto) 0.89 L (1.20-3.40) K/uL [place] # (Auto) 0.73 H (0.11-0.59) K/uL Eos # (Auto) 0.10 (0.00-0.50) K/uL Baso # (Auto) 0.06 (0.00-0.20) K/uL Immature Gran # (Auto) 0.45 H (0.01-0.20) K/uL Heparin Anti-Xa, Unfract (0.3-0.7) IU/ml Sodium 130 L (136-145) mmol/L Potassium 3.8 (3.5-5.1) mmol/L Chloride 99 (98-107) mmol/L Carbon Dioxide 25 (21-32) mmol/L Anion Gap 6 (3-11) BUN 12 (6-23) mg/dl Creatinine 0.46 L (0.6-1.4) mg/dl Est Cr Clr Drug Dosing 143.6 ml/min Est GFR ( Amer) 143.3 ml/min Est GFR (Non-Af Amer) 123.6 ml/min BUN/Creatinine Ratio 26.1 H (10-20) Glucose 154 H (70-99(Fasting)) mg/dl POC Glucose 157 H 142 H (70-99) mg/dl Osmolality (280-300) mOsm/kg Calcium 7.7 L (8.6-10.3) mg/dl Phosphorus 2.1 L (2.5-4.9) mg/dl Magnesium 2.3 (1.7-2.4) mg/dl Total Bilirubin (0.2-1.0) mg/dl Direct Bilirubin (0-0.2) mg/dl AST (13-39) U/L ALT (7-52) U/L Alkaline Phosphatase (34-104) U/L B-Natriuretic Peptide (0-100) pg/ml Total Protein (6.0-8.3) gm/dl Albumin (3.4-5.0) gm/dl Globulin (2.5-4.0) gm/dl Albumin/Globulin Ratio (0.9-2) Procalcitonin 0.36 (0-0.5) ng/ml TSH (0.300-4.500) uIu/ml Free T4 (0.61-1.60) ng/dl Urine Osmolality (500-800) mOsm/kg Stl C. diff Tox B Gene (Neg) Random Vancomycin < 3.0 L (10-20) mcg/ml Digoxin (0.8-2.0) ng/ml Adenovirus (PCR) (NotDetected) B. pertussis DNA (PCR) (NotDetected) B.parapertussis DNA PCR (NotDetected) C. pneumoniae DNA (PCR) (NotDetected) Coronavirus OC43 (PCR) (NotDetected) Coronavirus HKU1 (PCR) (NotDetected) Coronavirus 229E (PCR) (NotDetected) SARS-CoV-2 (PCR) (NotDetected) Coronavirus NL63 (PCR) (NotDetected) Human Metapneumovir PCR (NotDetected) Influenza Type A (PCR) (NotDetected) Influenza Type B (PCR) (NotDetected) M. pneumoniae (PCR) (NotDetected) Parainfluenza 1 (PCR) (NotDetected) Parainfluenza 2 (PCR) (NotDetected) Parainfluenza 3 (PCR) (NotDetected) Parainfluenza 4 (PCR) (NotDetected) RSV (PCR) (NotDetected) Resp Virus Cult Rapid Entero/Rhino (PCR) (NotDetected) Viral Specimen Source Bld Cult ID Panel PCR (NotDetected) 01/29/24 01/28/24 01/28/24 Range/Units 02:18 23:49 19:08 WBC (4.8-10.8) K/ul RBC (4.70-6.10) M/uL Hgb (14.0-18.0) g/dl Hct (42.0-52.0) % MCV (80.0-100.0) fL MCH (25.0-34.0) pg MCHC (32.0-36.0) g/dL RDW Std Deviation (36.4-46.3) fL RDW Coeff of Britney (11.5-14.5) % Plt Count (130-400) K/uL MPV (9.4-12.4) fL Immature Gran % (Auto) % Neut % (Auto) % Lymph % (Auto) % [place] % (Auto) % Eos % (Auto) % Baso % (Auto) % Neut # (Auto) (1.40-6.50) K/uL Lymph # (Auto) (1.20-3.40) K/uL [place] # (Auto) (0.11-0.59) K/uL Eos # (Auto) (0.00-0.50) K/uL Baso # (Auto) (0.00-0.20) K/uL Immature Gran # (Auto) (0.01-0.20) K/uL Heparin Anti-Xa, Unfract 0.41 0.29 L (0.3-0.7) IU/ml Sodium 128 L (136-145) mmol/L Potassium 3.2 L (3.5-5.1) mmol/L Chloride 94 L (98-107) mmol/L Carbon Dioxide 26 (21-32) mmol/L Anion Gap 8 (3-11) BUN 12 (6-23) mg/dl Creatinine 0.58 L (0.6-1.4) mg/dl Est Cr Clr Drug Dosing 109.6 ml/min Est GFR ( Amer) 130.3 ml/min Est GFR (Non-Af Amer) 112.4 ml/min BUN/Creatinine Ratio 20.7 H (10-20) Glucose 156 H (70-99(Fasting)) mg/dl POC Glucose 144 H (70-99) mg/dl Osmolality (280-300) mOsm/kg Calcium 8.1 L (8.6-10.3) mg/dl Phosphorus (2.5-4.9) mg/dl Magnesium 1.6 L (1.7-2.4) mg/dl Total Bilirubin (0.2-1.0) mg/dl Direct Bilirubin (0-0.2) mg/dl AST (13-39) U/L ALT (7-52) U/L Alkaline Phosphatase (34-104) U/L B-Natriuretic Peptide (0-100) pg/ml Total Protein (6.0-8.3) gm/dl Albumin (3.4-5.0) gm/dl Globulin (2.5-4.0) gm/dl Albumin/Globulin Ratio (0.9-2) Procalcitonin (0-0.5) ng/ml TSH (0.300-4.500) uIu/ml Free T4 (0.61-1.60) ng/dl Urine Osmolality (500-800) mOsm/kg Stl C. diff Tox B Gene (Neg) Random Vancomycin (10-20) mcg/ml Digoxin (0.8-2.0) ng/ml Adenovirus (PCR) (NotDetected) B. pertussis DNA (PCR) (NotDetected) B.parapertussis DNA PCR (NotDetected) C. pneumoniae DNA (PCR) (NotDetected) Coronavirus OC43 (PCR) (NotDetected) Coronavirus HKU1 (PCR) (NotDetected) Coronavirus 229E (PCR) (NotDetected) SARS-CoV-2 (PCR) (NotDetected) Coronavirus NL63 (PCR) (NotDetected) Human Metapneumovir PCR (NotDetected) Influenza Type A (PCR) (NotDetected) Influenza Type B (PCR) (NotDetected) M. pneumoniae (PCR) (NotDetected) Parainfluenza 1 (PCR) (NotDetected) Parainfluenza 2 (PCR) (NotDetected) Parainfluenza 3 (PCR) (NotDetected) Parainfluenza 4 (PCR) (NotDetected) RSV (PCR) (NotDetected) Resp Virus Cult Rapid Entero/Rhino (PCR) (NotDetected) Viral Specimen Source Bld Cult ID Panel PCR (NotDetected) 01/28/24 01/28/24 01/28/24 Range/Units 18:01 13:35 11:39 WBC (4.8-10.8) K/ul RBC (4.70-6.10) M/uL Hgb (14.0-18.0) g/dl Hct (42.0-52.0) % MCV (80.0-100.0) fL MCH (25.0-34.0) pg MCHC (32.0-36.0) g/dL RDW Std Deviation (36.4-46.3) fL RDW Coeff of Britney (11.5-14.5) % Plt Count (130-400) K/uL MPV (9.4-12.4) fL Immature Gran % (Auto) % Neut % (Auto) % Lymph % (Auto) % [place] % (Auto) % Eos % (Auto) % Baso % (Auto) % Neut # (Auto) (1.40-6.50) K/uL Lymph # (Auto) (1.20-3.40) K/uL [place] # (Auto) (0.11-0.59) K/uL Eos # (Auto) (0.00-0.50) K/uL Baso # (Auto) (0.00-0.20) K/uL Immature Gran # (Auto) (0.01-0.20) K/uL Heparin Anti-Xa, Unfract 0.29 L (0.3-0.7) IU/ml Sodium (136-145) mmol/L Potassium (3.5-5.1) mmol/L Chloride (98-107) mmol/L Carbon Dioxide (21-32) mmol/L Anion Gap (3-11) BUN (6-23) mg/dl Creatinine (0.6-1.4) mg/dl Est Cr Clr Drug Dosing ml/min Est GFR ( Amer) ml/min Est GFR (Non-Af Amer) ml/min BUN/Creatinine Ratio (10-20) Glucose (70-99(Fasting)) mg/dl POC Glucose 137 H 135 H (70-99) mg/dl Osmolality (280-300) mOsm/kg Calcium (8.6-10.3) mg/dl Phosphorus (2.5-4.9) mg/dl Magnesium (1.7-2.4) mg/dl Total Bilirubin (0.2-1.0) mg/dl Direct Bilirubin (0-0.2) mg/dl AST (13-39) U/L ALT (7-52) U/L Alkaline Phosphatase (34-104) U/L B-Natriuretic Peptide (0-100) pg/ml Total Protein (6.0-8.3) gm/dl Albumin (3.4-5.0) gm/dl Globulin (2.5-4.0) gm/dl Albumin/Globulin Ratio (0.9-2) Procalcitonin (0-0.5) ng/ml TSH (0.300-4.500) uIu/ml Free T4 (0.61-1.60) ng/dl Urine Osmolality (500-800) mOsm/kg Stl C. diff Tox B Gene (Neg) Random Vancomycin (10-20) mcg/ml Digoxin (0.8-2.0) ng/ml Adenovirus (PCR) (NotDetected) B. pertussis DNA (PCR) (NotDetected) B.parapertussis DNA PCR (NotDetected) C. pneumoniae DNA (PCR) (NotDetected) Coronavirus OC43 (PCR) (NotDetected) Coronavirus HKU1 (PCR) (NotDetected) Coronavirus 229E (PCR) (NotDetected) SARS-CoV-2 (PCR) (NotDetected) Coronavirus NL63 (PCR) (NotDetected) Human Metapneumovir PCR (NotDetected) Influenza Type A (PCR) (NotDetected) Influenza Type B (PCR) (NotDetected) M. pneumoniae (PCR) (NotDetected) Parainfluenza 1 (PCR) (NotDetected) Parainfluenza 2 (PCR) (NotDetected) Parainfluenza 3 (PCR) (NotDetected) Parainfluenza 4 (PCR) (NotDetected) RSV (PCR) (NotDetected) Resp Virus Cult Rapid Entero/Rhino (PCR) (NotDetected) Viral Specimen Source Bld Cult ID Panel PCR (NotDetected) 01/28/24 01/28/24 01/27/24 Range/Units 05:46 04:31 23:21 WBC 8.99 (4.8-10.8) K/ul RBC 4.18 L (4.70-6.10) M/uL Hgb 14.3 (14.0-18.0) g/dl Hct 40.8 L (42.0-52.0) % MCV 97.6 (80.0-100.0) fL MCH 34.2 H (25.0-34.0) pg MCHC 35.0 (32.0-36.0) g/dL RDW Std Deviation 49.3 H (36.4-46.3) fL RDW Coeff of Britney 13.7 (11.5-14.5) % Plt Count 143 (130-400) K/uL MPV 11.4 (9.4-12.4) fL Immature Gran % (Auto) 3.1 % Neut % (Auto) 78.2 % Lymph % (Auto) 12.0 % [place] % (Auto) 5.1 % Eos % (Auto) 1.0 % Baso % (Auto) 0.6 % Neut # (Auto) 7.03 H (1.40-6.50) K/uL Lymph # (Auto) 1.08 L (1.20-3.40) K/uL [place] # (Auto) 0.46 (0.11-0.59) K/uL Eos # (Auto) 0.09 (0.00-0.50) K/uL Baso # (Auto) 0.05 (0.00-0.20) K/uL Immature Gran # (Auto) 0.28 H (0.01-0.20) K/uL Heparin Anti-Xa, Unfract 0.26 L (0.3-0.7) IU/ml Sodium 129 L (136-145) mmol/L Potassium 3.6 D (3.5-5.1) mmol/L Chloride 95 L (98-107) mmol/L Carbon Dioxide 27 (21-32) mmol/L Anion Gap 7 (3-11) BUN 12 (6-23) mg/dl Creatinine 0.59 L (0.6-1.4) mg/dl Est Cr Clr Drug Dosing 107.7 ml/min Est GFR ( Amer) 129.3 ml/min Est GFR (Non-Af Amer) 111.6 ml/min BUN/Creatinine Ratio 20.3 H (10-20) Glucose 129 H (70-99(Fasting)) mg/dl POC Glucose 163 H 165 H (70-99) mg/dl Osmolality (280-300) mOsm/kg Calcium 8.2 L (8.6-10.3) mg/dl Phosphorus 2.1 L (2.5-4.9) mg/dl Magnesium 1.8 (1.7-2.4) mg/dl Total Bilirubin 3.2 H (0.2-1.0) mg/dl Direct Bilirubin (0-0.2) mg/dl AST 30 (13-39) U/L ALT 54 H (7-52) U/L Alkaline Phosphatase 84 (34-104) U/L B-Natriuretic Peptide (0-100) pg/ml Total Protein 5.4 L (6.0-8.3) gm/dl Albumin 3.1 L (3.4-5.0) gm/dl Globulin 2.3 L (2.5-4.0) gm/dl Albumin/Globulin Ratio 1.3 (0.9-2) Procalcitonin (0-0.5) ng/ml TSH (0.300-4.500) uIu/ml Free T4 (0.61-1.60) ng/dl Urine Osmolality (500-800) mOsm/kg Stl C. diff Tox B Gene (Neg) Random Vancomycin (10-20) mcg/ml Digoxin (0.8-2.0) ng/ml Adenovirus (PCR) (NotDetected) B. pertussis DNA (PCR) (NotDetected) B.parapertussis DNA PCR (NotDetected) C. pneumoniae DNA (PCR) (NotDetected) Coronavirus OC43 (PCR) (NotDetected) Coronavirus HKU1 (PCR) (NotDetected) Coronavirus 229E (PCR) (NotDetected) SARS-CoV-2 (PCR) (NotDetected) Coronavirus NL63 (PCR) (NotDetected) Human Metapneumovir PCR (NotDetected) Influenza Type A (PCR) (NotDetected) Influenza Type B (PCR) (NotDetected) M. pneumoniae (PCR) (NotDetected) Parainfluenza 1 (PCR) (NotDetected) Parainfluenza 2 (PCR) (NotDetected) Parainfluenza 3 (PCR) (NotDetected) Parainfluenza 4 (PCR) (NotDetected) RSV (PCR) (NotDetected) Resp Virus Cult Rapid Entero/Rhino (PCR) (NotDetected) Viral Specimen Source Bld Cult ID Panel PCR (NotDetected) 01/27/24 01/27/24 01/27/24 Range/Units 17:23 15:13 14:08 WBC (4.8-10.8) K/ul RBC (4.70-6.10) M/uL Hgb (14.0-18.0) g/dl Hct (42.0-52.0) % MCV (80.0-100.0) fL MCH (25.0-34.0) pg MCHC (32.0-36.0) g/dL RDW Std Deviation (36.4-46.3) fL RDW Coeff of Britney (11.5-14.5) % Plt Count (130-400) K/uL MPV (9.4-12.4) fL Immature Gran % (Auto) % Neut % (Auto) % Lymph % (Auto) % [place] % (Auto) % Eos % (Auto) % Baso % (Auto) % Neut # (Auto) (1.40-6.50) K/uL Lymph # (Auto) (1.20-3.40) K/uL [place] # (Auto) (0.11-0.59) K/uL Eos # (Auto) (0.00-0.50) K/uL Baso # (Auto) (0.00-0.20) K/uL Immature Gran # (Auto) (0.01-0.20) K/uL Heparin Anti-Xa, Unfract (0.3-0.7) IU/ml Sodium 131 L (136-145) mmol/L Potassium 2.6 L (3.5-5.1) mmol/L Chloride 88 L (98-107) mmol/L Carbon Dioxide 32 (21-32) mmol/L Anion Gap 11 (3-11) BUN 15 (6-23) mg/dl Creatinine 0.57 L (0.6-1.4) mg/dl Est Cr Clr Drug Dosing 113.1 ml/min Est GFR ( Amer) 131.2 ml/min Est GFR (Non-Af Amer) 113.2 ml/min BUN/Creatinine Ratio 26.3 H (10-20) Glucose 185 H (70-99(Fasting)) mg/dl POC Glucose 102 H (70-99) mg/dl Osmolality (280-300) mOsm/kg Calcium 8.1 L (8.6-10.3) mg/dl Phosphorus 2.2 L (2.5-4.9) mg/dl Magnesium 1.9 (1.7-2.4) mg/dl Total Bilirubin (0.2-1.0) mg/dl Direct Bilirubin (0-0.2) mg/dl AST (13-39) U/L ALT (7-52) U/L Alkaline Phosphatase (34-104) U/L B-Natriuretic Peptide (0-100) pg/ml Total Protein (6.0-8.3) gm/dl Albumin (3.4-5.0) gm/dl Globulin (2.5-4.0) gm/dl Albumin/Globulin Ratio (0.9-2) Procalcitonin (0-0.5) ng/ml TSH (0.300-4.500) uIu/ml Free T4 (0.61-1.60) ng/dl Urine Osmolality (500-800) mOsm/kg Stl C. diff Tox B Gene Negative Cdiff Gene (Neg) Random Vancomycin (10-20) mcg/ml Digoxin (0.8-2.0) ng/ml Adenovirus (PCR) (NotDetected) B. pertussis DNA (PCR) (NotDetected) B.parapertussis DNA PCR (NotDetected) C. pneumoniae DNA (PCR) (NotDetected) Coronavirus OC43 (PCR) (NotDetected) Coronavirus HKU1 (PCR) (NotDetected) Coronavirus 229E (PCR) (NotDetected) SARS-CoV-2 (PCR) (NotDetected) Coronavirus NL63 (PCR) (NotDetected) Human Metapneumovir PCR (NotDetected) Influenza Type A (PCR) (NotDetected) Influenza Type B (PCR) (NotDetected) M. pneumoniae (PCR) (NotDetected) Parainfluenza 1 (PCR) (NotDetected) Parainfluenza 2 (PCR) (NotDetected) Parainfluenza 3 (PCR) (NotDetected) Parainfluenza 4 (PCR) (NotDetected) RSV (PCR) (NotDetected) Resp Virus Cult Rapid Entero/Rhino (PCR) (NotDetected) Viral Specimen Source Bld Cult ID Panel PCR (NotDetected) 01/27/24 01/27/24 01/27/24 Range/Units 11:48 06:20 03:58 WBC 6.29 (4.8-10.8) K/ul RBC 3.46 L (4.70-6.10) M/uL Hgb 12.2 L (14.0-18.0) g/dl Hct 33.7 L (42.0-52.0) % MCV 97.4 (80.0-100.0) fL MCH 35.3 H (25.0-34.0) pg MCHC 36.2 H (32.0-36.0) g/dL RDW Std Deviation 49.1 H (36.4-46.3) fL RDW Coeff of Britney 13.8 (11.5-14.5) % Plt Count 118 L (130-400) K/uL MPV 11.6 (9.4-12.4) fL Immature Gran % (Auto) 1.7 % Neut % (Auto) 74.6 % Lymph % (Auto) 16.1 % [place] % (Auto) 6.0 % Eos % (Auto) 1.0 % Baso % (Auto) 0.6 % Neut # (Auto) 4.69 (1.40-6.50) K/uL Lymph # (Auto) 1.01 L (1.20-3.40) K/uL [place] # (Auto) 0.38 (0.11-0.59) K/uL Eos # (Auto) 0.06 (0.00-0.50) K/uL Baso # (Auto) 0.04 (0.00-0.20) K/uL Immature Gran # (Auto) 0.11 (0.01-0.20) K/uL Heparin Anti-Xa, Unfract 0.30 (0.3-0.7) IU/ml Sodium 133 L (136-145) mmol/L Potassium 2.6 L D (3.5-5.1) mmol/L Chloride 90 L (98-107) mmol/L Carbon Dioxide 36 H (21-32) mmol/L Anion Gap 7 (3-11) BUN 20 (6-23) mg/dl Creatinine 0.75 (0.6-1.4) mg/dl Est Cr Clr Drug Dosing 94.6 ml/min Est GFR ( Amer) 117.2 ml/min Est GFR (Non-Af Amer) 101.1 ml/min BUN/Creatinine Ratio 26.7 H (10-20) Glucose 118 H (70-99(Fasting)) mg/dl POC Glucose 166 H (70-99) mg/dl Osmolality (280-300) mOsm/kg Calcium 7.5 L (8.6-10.3) mg/dl Phosphorus 2.1 L (2.5-4.9) mg/dl Magnesium 1.8 (1.7-2.4) mg/dl Total Bilirubin (0.2-1.0) mg/dl Direct Bilirubin (0-0.2) mg/dl AST (13-39) U/L ALT (7-52) U/L Alkaline Phosphatase (34-104) U/L B-Natriuretic Peptide (0-100) pg/ml Total Protein (6.0-8.3) gm/dl Albumin (3.4-5.0) gm/dl Globulin (2.5-4.0) gm/dl Albumin/Globulin Ratio (0.9-2) Procalcitonin 1.00 H (0-0.5) ng/ml TSH (0.300-4.500) uIu/ml Free T4 (0.61-1.60) ng/dl Urine Osmolality (500-800) mOsm/kg Stl C. diff Tox B Gene (Neg) Random Vancomycin (10-20) mcg/ml Digoxin (0.8-2.0) ng/ml Adenovirus (PCR) (NotDetected) B. pertussis DNA (PCR) (NotDetected) B.parapertussis DNA PCR (NotDetected) C. pneumoniae DNA (PCR) (NotDetected) Coronavirus OC43 (PCR) (NotDetected) Coronavirus HKU1 (PCR) (NotDetected) Coronavirus 229E (PCR) (NotDetected) SARS-CoV-2 (PCR) (NotDetected) Coronavirus NL63 (PCR) (NotDetected) Human Metapneumovir PCR (NotDetected) Influenza Type A (PCR) (NotDetected) Influenza Type B (PCR) (NotDetected) M. pneumoniae (PCR) (NotDetected) Parainfluenza 1 (PCR) (NotDetected) Parainfluenza 2 (PCR) (NotDetected) Parainfluenza 3 (PCR) (NotDetected) Parainfluenza 4 (PCR) (NotDetected) RSV (PCR) (NotDetected) Resp Virus Cult Rapid Entero/Rhino (PCR) (NotDetected) Viral Specimen Source Bld Cult ID Panel PCR (NotDetected) 01/27/24 01/26/24 01/26/24 Range/Units 00:10 23:07 22:55 WBC (4.8-10.8) K/ul RBC (4.70-6.10) M/uL Hgb (14.0-18.0) g/dl Hct (42.0-52.0) % MCV (80.0-100.0) fL MCH (25.0-34.0) pg MCHC (32.0-36.0) g/dL RDW Std Deviation (36.4-46.3) fL RDW Coeff of Britney (11.5-14.5) % Plt Count (130-400) K/uL MPV (9.4-12.4) fL Immature Gran % (Auto) % Neut % (Auto) % Lymph % (Auto) % [place] % (Auto) % Eos % (Auto) % Baso % (Auto) % Neut # (Auto) (1.40-6.50) K/uL Lymph # (Auto) (1.20-3.40) K/uL [place] # (Auto) (0.11-0.59) K/uL Eos # (Auto) (0.00-0.50) K/uL Baso # (Auto) (0.00-0.20) K/uL Immature Gran # (Auto) (0.01-0.20) K/uL Heparin Anti-Xa, Unfract 0.23 L (0.3-0.7) IU/ml Sodium (136-145) mmol/L Potassium (3.5-5.1) mmol/L Chloride (98-107) mmol/L Carbon Dioxide (21-32) mmol/L Anion Gap (3-11) BUN (6-23) mg/dl Creatinine (0.6-1.4) mg/dl Est Cr Clr Drug Dosing ml/min Est GFR ( Amer) ml/min Est GFR (Non-Af Amer) ml/min BUN/Creatinine Ratio (10-20) Glucose (70-99(Fasting)) mg/dl POC Glucose 162 H (70-99) mg/dl Osmolality (280-300) mOsm/kg Calcium (8.6-10.3) mg/dl Phosphorus (2.5-4.9) mg/dl Magnesium (1.7-2.4) mg/dl Total Bilirubin (0.2-1.0) mg/dl Direct Bilirubin (0-0.2) mg/dl AST (13-39) U/L ALT (7-52) U/L Alkaline Phosphatase (34-104) U/L B-Natriuretic Peptide (0-100) pg/ml Total Protein (6.0-8.3) gm/dl Albumin (3.4-5.0) gm/dl Globulin (2.5-4.0) gm/dl Albumin/Globulin Ratio (0.9-2) Procalcitonin (0-0.5) ng/ml TSH (0.300-4.500) uIu/ml Free T4 (0.61-1.60) ng/dl Urine Osmolality (500-800) mOsm/kg Stl C. diff Tox B Gene (Neg) Random Vancomycin (10-20) mcg/ml Digoxin (0.8-2.0) ng/ml Adenovirus (PCR) (NotDetected) B. pertussis DNA (PCR) (NotDetected) B.parapertussis DNA PCR (NotDetected) C. pneumoniae DNA (PCR) (NotDetected) Coronavirus OC43 (PCR) (NotDetected) Coronavirus HKU1 (PCR) (NotDetected) Coronavirus 229E (PCR) (NotDetected) SARS-CoV-2 (PCR) (NotDetected) Coronavirus NL63 (PCR) (NotDetected) Human Metapneumovir PCR (NotDetected) Influenza Type A (PCR) (NotDetected) Influenza Type B (PCR) (NotDetected) M. pneumoniae (PCR) (NotDetected) Parainfluenza 1 (PCR) (NotDetected) Parainfluenza 2 (PCR) (NotDetected) Parainfluenza 3 (PCR) (NotDetected) Parainfluenza 4 (PCR) (NotDetected) RSV (PCR) (NotDetected) Resp Virus Cult Rapid Entero/Rhino (PCR) (NotDetected) Viral Specimen Source Bld Cult ID Panel PCR PCR Panel Negative (NotDetected) 01/26/24 01/26/24 01/26/24 Range/Units 17:45 17:11 11:17 WBC (4.8-10.8) K/ul RBC (4.70-6.10) M/uL Hgb (14.0-18.0) g/dl Hct (42.0-52.0) % MCV (80.0-100.0) fL MCH (25.0-34.0) pg MCHC (32.0-36.0) g/dL RDW Std Deviation (36.4-46.3) fL RDW Coeff of Britney (11.5-14.5) % Plt Count (130-400) K/uL MPV (9.4-12.4) fL Immature Gran % (Auto) % Neut % (Auto) % Lymph % (Auto) % [place] % (Auto) % Eos % (Auto) % Baso % (Auto) % Neut # (Auto) (1.40-6.50) K/uL Lymph # (Auto) (1.20-3.40) K/uL [place] # (Auto) (0.11-0.59) K/uL Eos # (Auto) (0.00-0.50) K/uL Baso # (Auto) (0.00-0.20) K/uL Immature Gran # (Auto) (0.01-0.20) K/uL Heparin Anti-Xa, Unfract (0.3-0.7) IU/ml Sodium 135 L (136-145) mmol/L Potassium 3.8 (3.5-5.1) mmol/L Chloride 94 L (98-107) mmol/L Carbon Dioxide 32 (21-32) mmol/L Anion Gap 9 (3-11) BUN 20 (6-23) mg/dl Creatinine 0.83 (0.6-1.4) mg/dl Est Cr Clr Drug Dosing 85.5 ml/min Est GFR ( Amer) 112.4 ml/min Est GFR (Non-Af Amer) 97.0 ml/min BUN/Creatinine Ratio 24.1 H (10-20) Glucose 109 H (70-99(Fasting)) mg/dl POC Glucose 106 H 103 H (70-99) mg/dl Osmolality (280-300) mOsm/kg Calcium 7.7 L (8.6-10.3) mg/dl Phosphorus (2.5-4.9) mg/dl Magnesium 2.2 (1.7-2.4) mg/dl Total Bilirubin (0.2-1.0) mg/dl Direct Bilirubin (0-0.2) mg/dl AST (13-39) U/L ALT (7-52) U/L Alkaline Phosphatase (34-104) U/L B-Natriuretic Peptide (0-100) pg/ml Total Protein (6.0-8.3) gm/dl Albumin (3.4-5.0) gm/dl Globulin (2.5-4.0) gm/dl Albumin/Globulin Ratio (0.9-2) Procalcitonin (0-0.5) ng/ml TSH (0.300-4.500) uIu/ml Free T4 (0.61-1.60) ng/dl Urine Osmolality (500-800) mOsm/kg Stl C. diff Tox B Gene (Neg) Random Vancomycin (10-20) mcg/ml Digoxin (0.8-2.0) ng/ml Adenovirus (PCR) (NotDetected) B. pertussis DNA (PCR) (NotDetected) B.parapertussis DNA PCR (NotDetected) C. pneumoniae DNA (PCR) (NotDetected) Coronavirus OC43 (PCR) (NotDetected) Coronavirus HKU1 (PCR) (NotDetected) Coronavirus 229E (PCR) (NotDetected) SARS-CoV-2 (PCR) (NotDetected) Coronavirus NL63 (PCR) (NotDetected) Human Metapneumovir PCR (NotDetected) Influenza Type A (PCR) (NotDetected) Influenza Type B (PCR) (NotDetected) M. pneumoniae (PCR) (NotDetected) Parainfluenza 1 (PCR) (NotDetected) Parainfluenza 2 (PCR) (NotDetected) Parainfluenza 3 (PCR) (NotDetected) Parainfluenza 4 (PCR) (NotDetected) RSV (PCR) (NotDetected) Resp Virus Cult Rapid Entero/Rhino (PCR) (NotDetected) Viral Specimen Source Bld Cult ID Panel PCR (NotDetected) 01/26/24 01/25/24 01/25/24 Range/Units 04:29 23:26 11:10 WBC 6.61 (4.8-10.8) K/ul RBC 3.19 L (4.70-6.10) M/uL Hgb 11.0 L (14.0-18.0) g/dl Hct 31.6 L (42.0-52.0) % MCV 99.1 (80.0-100.0) fL MCH 34.5 H (25.0-34.0) pg MCHC 34.8 (32.0-36.0) g/dL RDW Std Deviation 51.8 H (36.4-46.3) fL RDW Coeff of Britney 14.0 (11.5-14.5) % Plt Count 120 L (130-400) K/uL MPV 11.1 (9.4-12.4) fL Immature Gran % (Auto) 1.1 % Neut % (Auto) 70.6 % Lymph % (Auto) 18.6 % [place] % (Auto) 8.9 % Eos % (Auto) 0.5 % Baso % (Auto) 0.3 % Neut # (Auto) 4.67 (1.40-6.50) K/uL Lymph # (Auto) 1.23 (1.20-3.40) K/uL [place] # (Auto) 0.59 (0.11-0.59) K/uL Eos # (Auto) 0.03 (0.00-0.50) K/uL Baso # (Auto) 0.02 (0.00-0.20) K/uL Immature Gran # (Auto) 0.07 (0.01-0.20) K/uL Heparin Anti-Xa, Unfract < 0.10 L (0.3-0.7) IU/ml Sodium 132 L (136-145) mmol/L Potassium 3.7 (3.5-5.1) mmol/L Chloride 96 L (98-107) mmol/L Carbon Dioxide 29 (21-32) mmol/L Anion Gap 7 (3-11) BUN 19 (6-23) mg/dl Creatinine 0.74 (0.6-1.4) mg/dl Est Cr Clr Drug Dosing 96.5 ml/min Est GFR ( Amer) 117.8 ml/min Est GFR (Non-Af Amer) 101.7 ml/min BUN/Creatinine Ratio 25.7 H (10-20) Glucose 106 H (70-99(Fasting)) mg/dl POC Glucose 97 (70-99) mg/dl Osmolality (280-300) mOsm/kg Calcium 7.6 L (8.6-10.3) mg/dl Phosphorus (2.5-4.9) mg/dl Magnesium 2.8 H (1.7-2.4) mg/dl Total Bilirubin (0.2-1.0) mg/dl Direct Bilirubin (0-0.2) mg/dl AST (13-39) U/L ALT (7-52) U/L Alkaline Phosphatase (34-104) U/L B-Natriuretic Peptide (0-100) pg/ml Total Protein (6.0-8.3) gm/dl Albumin (3.4-5.0) gm/dl Globulin (2.5-4.0) gm/dl Albumin/Globulin Ratio (0.9-2) Procalcitonin (0-0.5) ng/ml TSH (0.300-4.500) uIu/ml Free T4 (0.61-1.60) ng/dl Urine Osmolality (500-800) mOsm/kg Stl C. diff Tox B Gene (Neg) Random Vancomycin (10-20) mcg/ml Digoxin (0.8-2.0) ng/ml Adenovirus (PCR) (NotDetected) B. pertussis DNA (PCR) (NotDetected) B.parapertussis DNA PCR (NotDetected) C. pneumoniae DNA (PCR) (NotDetected) Coronavirus OC43 (PCR) (NotDetected) Coronavirus HKU1 (PCR) (NotDetected) Coronavirus 229E (PCR) (NotDetected) SARS-CoV-2 (PCR) (NotDetected) Coronavirus NL63 (PCR) (NotDetected) Human Metapneumovir PCR (NotDetected) Influenza Type A (PCR) (NotDetected) Influenza Type B (PCR) (NotDetected) M. pneumoniae (PCR) (NotDetected) Parainfluenza 1 (PCR) (NotDetected) Parainfluenza 2 (PCR) (NotDetected) Parainfluenza 3 (PCR) (NotDetected) Parainfluenza 4 (PCR) (NotDetected) RSV (PCR) (NotDetected) Resp Virus Cult Rapid Entero/Rhino (PCR) (NotDetected) Viral Specimen Source LUNG Bld Cult ID Panel PCR (NotDetected) 01/25/24 01/25/24 Range/Units 11:10 11:10 WBC (4.8-10.8) K/ul RBC (4.70-6.10) M/uL Hgb (14.0-18.0) g/dl Hct (42.0-52.0) % MCV (80.0-100.0) fL MCH (25.0-34.0) pg MCHC (32.0-36.0) g/dL RDW Std Deviation (36.4-46.3) fL RDW Coeff of Britney (11.5-14.5) % Plt Count (130-400) K/uL MPV (9.4-12.4) fL Immature Gran % (Auto) % Neut % (Auto) % Lymph % (Auto) % [place] % (Auto) % Eos % (Auto) % Baso % (Auto) % Neut # (Auto) (1.40-6.50) K/uL Lymph # (Auto) (1.20-3.40) K/uL [place] # (Auto) (0.11-0.59) K/uL Eos # (Auto) (0.00-0.50) K/uL Baso # (Auto) (0.00-0.20) K/uL Immature Gran # (Auto) (0.01-0.20) K/uL Heparin Anti-Xa, Unfract (0.3-0.7) IU/ml Sodium (136-145) mmol/L Potassium (3.5-5.1) mmol/L Chloride (98-107) mmol/L Carbon Dioxide (21-32) mmol/L Anion Gap (3-11) BUN (6-23) mg/dl Creatinine (0.6-1.4) mg/dl Est Cr Clr Drug Dosing ml/min Est GFR ( Amer) ml/min Est GFR (Non-Af Amer) ml/min BUN/Creatinine Ratio (10-20) Glucose (70-99(Fasting)) mg/dl POC Glucose (70-99) mg/dl Osmolality (280-300) mOsm/kg Calcium (8.6-10.3) mg/dl Phosphorus (2.5-4.9) mg/dl Magnesium (1.7-2.4) mg/dl Total Bilirubin (0.2-1.0) mg/dl Direct Bilirubin (0-0.2) mg/dl AST (13-39) U/L ALT (7-52) U/L Alkaline Phosphatase (34-104) U/L B-Natriuretic Peptide (0-100) pg/ml Total Protein (6.0-8.3) gm/dl Albumin (3.4-5.0) gm/dl Globulin (2.5-4.0) gm/dl Albumin/Globulin Ratio (0.9-2) Procalcitonin (0-0.5) ng/ml TSH (0.300-4.500) uIu/ml Free T4 (0.61-1.60) ng/dl Urine Osmolality (500-800) mOsm/kg Stl C. diff Tox B Gene (Neg) Random Vancomycin (10-20) mcg/ml Digoxin (0.8-2.0) ng/ml Adenovirus (PCR) (NotDetected) B. pertussis DNA (PCR) (NotDetected) B.parapertussis DNA PCR (NotDetected) C. pneumoniae DNA (PCR) (NotDetected) Coronavirus OC43 (PCR) (NotDetected) Coronavirus HKU1 (PCR) (NotDetected) Coronavirus 229E (PCR) (NotDetected) SARS-CoV-2 (PCR) (NotDetected) Coronavirus NL63 (PCR) (NotDetected) Human Metapneumovir PCR (NotDetected) Influenza Type A (PCR) (NotDetected) Influenza Type B (PCR) (NotDetected) M. pneumoniae (PCR) (NotDetected) Parainfluenza 1 (PCR) (NotDetected) Parainfluenza 2 (PCR) (NotDetected) Parainfluenza 3 (PCR) (NotDetected) Parainfluenza 4 (PCR) (NotDetected) RSV (PCR) (NotDetected) Resp Virus Cult Rapid SEE NOTE SEE NOTE Entero/Rhino (PCR) (NotDetected) Viral Specimen Source BAL RUL Bld Cult ID Panel PCR (NotDetected) Diagnostic Findings Chest X-Ray 01/20/24 05:10 XR chest 1V portable HISTORY: 58 years-old Male Chest pain, nonspecific COMPARISON: 09/12/2022 TECHNIQUE: AP view of the chest FINDINGS: Cardiac silhouette is mildly enlarged. Mild chronic interstitial coarsening. No pneumothorax, pleural effusion or airspace consolidation. Spondylotic spurring of the spine. IMPRESSION: No acute process. ACT 112: Negative or not required by law. The above report was generated using voice recognition software. It may contain grammatical, syntax or spelling errors. Electronically signed by: Lamont Levi M.D. 01/20/2024 7:20 AM Chest X-Ray 01/20/24 09:07 XR chest 1V portable CLINICAL HISTORY: post intubation COMPARISON STUDY: Chest radiograph and chest CT performed earlier today. FINDINGS: Tip of endotracheal tube is 5.3 cm above the marga. Tip of nasogastric tube is within the body of the stomach. There is no pneumothorax. Small bilateral pleural effusions are present. Interstitial thickening and bilateral airspace opacities are present, including right basilar consolidation. IMPRESSION: 1. Tip of endotracheal tube 5.3 cm above the marga. Tip of nasogastric tube within the body of the stomach. 2. No pneumothorax. Small bilateral pleural effusions, right larger than left. 3. Findings suggestive of interstitial and alveolar pulmonary edema. Right basilar consolidation could reflect superimposed pneumonia or aspiration pneumonitis. ACT 112: Negative or not required by law. Electronically signed by: Wong Montenegro M.D. 01/20/2024 2:[address] 01/20/24 09:07 CT OF THE HEAD WITHOUT CONTRAST CLINICAL HISTORY: Seizure. COMPARISON STUDY: No previous studies for comparison. TECHNIQUE: Helical axial images of the head were obtained without IV contrast. Automated exposure control was utilized for the study. A dose lowering technique was utilized adhering to the principles of ALARA. FINDINGS: This exam is moderately compromised by motion artifact. No acute intracranial hemorrhage, midline shift or mass effect is present. The ventricular system is unremarkable. The basal cisterns are patent. No extra- axial collections are present. There are no findings to suggest acute dural sinus thrombosis or acute territorial infarct. No calvarial fractures are identified. There is mild mucosal thickening with a small air-fluid level within the right maxillary sinus. IMPRESSION: 1. No acute intracranial findings. Exam moderately compromised by motion artifact. 2. No calvarial fractures identified. ACT 112: Negative or not required by law. Electronically signed by: Wong Montenegro M.D. 01/20/2024 9:[address] 01/20/24 09:15 CT chest diagnostic wo con CT DOSE: 1074.86 mGy.cm CLINICAL HISTORY: 58 years-old Male with s/p arrest, copd. Acute shortness of breath TECHNIQUE: Multiaxial CT images of the chest were performed without contrast. A dose lowering technique was utilized adhering to the principles of ALARA. COMPARISON: CT chest 05/28/2019 FINDINGS: Motion degraded exam. No dominant thyroid nodule identified. Borderline enlarged mediastinal and hilar lymph nodes are nonspecific. Cardiomegaly without pericardial effusion. Moderate coronary artery calcifications. No atherosclerotic aneurysm. Dilation of the main pulmonary artery measures up to 2.8 cm. Small pleural effusions. No pneumothorax. Intralobular septal thickening with intermixed diffuse groundglass and layering consolidative opacities. Consolidation is most pronounced in the dependent lower lobes. Findings are new/considerably progressed compared to the radiograph this morning. Endotracheal tube is noted within the trachea, 3.5 cm superior to the marga. Mild tracheobronchial secretions. Pulmonary emphysema. Fatty infiltration of the liver. Mild generalized body wall edema. No acute fracture. Gynecomastia. IMPRESSION: 1. Cardiomegaly with interval development of interstitial and alveolar pulmonary edema which demonstrates a considerable change compared to the chest radiograph conducted earlier this morning. 2. Small pleural effusions. 3. Dependent airspace opacities should be correlated clinically to exclude aspiration. 4. Satisfactory positioning of the endotracheal tube with mild tracheobronchial secretions. 5. Emphysema. 6. Hepatic steatosis. ACT 112: Negative or not required by law. Electronically signed by: Lamont Levi M.D. 01/20/2024 11:11 AM Chest X-Ray 01/21/24 06:30 XR chest 1V portable CLINICAL HISTORY: eval- ETT/OGT and lung rodriguez TECHNIQUE: Single frontal radiograph of the chest was obtained. Comparison: Comparison is made to chest radiograph 01/20/2024 FINDINGS: Endotracheal tube terminates 5.1 cm in the marga. Enteric tube is stable. The cardiomediastinal silhouette is normal. Multifocal airspace opacities are seen. No evidence of pleural effusion or pneumothorax. IMPRESSION: 1. Satisfactory position of lines and tubes. 2. Redemonstration of multifocal airspace opacities which may represent atelectasis, pneumonia, and/or aspiration. ACT 112: Negative or not required by law. Electronically signed by: Abdias Hennessy M.D. 01/21/2024 8:20 AM Chest X-Ray 01/22/24 07:00 XR chest 1V portable CLINICAL HISTORY: f/u TECHNIQUE: Single frontal radiograph of the chest was obtained. Comparison: Comparison is made to chest radiograph 01/21/2024 FINDINGS: Endotracheal tube terminates 2.4 cm above the marga. Enteric tube is stable. Cardiomegaly is noted. Multifocal airspace opacities are seen. No evidence of pleural effusion or pneumothorax. IMPRESSION: Satisfactory position of lines and tubes. Stable multifocal airspace opacities. ACT 112: Negative or not required by law. Electronically signed by: Abdias Hennessy M.D. 01/22/2024 10:33 AM Chest X-Ray 01/25/24 06:30 XR chest 1V portable HISTORY: 58 years-old Male eval lung rodriguez acute shortness of breath COMPARISON: 01/22/2024 TECHNIQUE: AP view of the chest FINDINGS: Interval removal of the endotracheal and enteric tubes. Cardiac silhouette is enlarged. There is progressive worsening of the right greater than left mixed interstitial and alveolar opacities. Equivocal trace pleural effusions. No pneumothorax. Spondylitic spurring of the spine. IMPRESSION: 1. Status post extubation with removal of the enteric tube. 2. Progressively worsened extensive right greater than left mixed interstitial and alveolar opacities. ACT 112: Negative or not required by law. The above report was generated using voice recognition software. It may contain grammatical, syntax or spelling errors. Electronically signed by: Lamont Levi M.D. 01/25/2024 7:44 AM Chest X-Ray 01/25/24 11:06 XR chest 1V portable CLINICAL HISTORY: ETT placement COMPARISON STUDY: Chest radiograph January 20, 2024. Chest radiograph performed earlier today. FINDINGS: The tip of the endotracheal tube is 4.6 cm above the marga. Tip of nasogastric/feeding tube is within the body of the stomach. Cardiomediastinal silhouette is stable. There is no pneumothorax. There are trace bilateral pleural effusions. Interstitial thickening in bilateral airspace opacities are similar to prior exam. IMPRESSION: 1. Satisfactory positioning of the endotracheal tube. 2. Interstitial thickening consistent with pulmonary edema. Extensive bilateral alveolar opacities could reflect alveolar pulmonary edema or superimposed pneumonia. 3. No pneumothorax. Trace bilateral pleural effusions. ACT 112: Negative or not required by law. Electronically signed by: Wong Montenegro M.D. 01/25/2024 11:42 AM KUB X-Ray 01/25/24 11:07 KUB HISTORY: feeding tube placement COMPARISON: None. FINDINGS: The bowel gas pattern is unremarkable. There are no dilated loops of small bowel to suggest an obstruction. No renal calculi. No ureteral calculi. No pneumoperitoneum or pneumatosis. Feeding tube is curled within the proximal stomach. IMPRESSION: Feeding tube is curled within the proximal stomach. ACT 112: Negative or not required by law. Electronically signed by: Malik Fatima M.D. 01/25/2024 12:21 PM Chest X-Ray 01/26/24 06:30 XR chest 1V portable HISTORY: Follow up pulmonary edema. Shortness of breath. COMPARISON: Chest 01/25/2024. FINDINGS: Interval placement of a tracheostomy tube which appears in good position. Feeding tube is curled within the stomach. No pneumothorax. The heart remains mildly enlarged. Perihilar interstitial thickening and hazy airspace opacities are again noted consistent with pulmonary edema. Small bilateral pleural effusions persists. No acute fractures. IMPRESSION: 1. Satisfactory support line placement. 2. Cardiomegaly with perihilar airspace opacities and small bilateral pleural effusions again noted. This favors moderate pulmonary edema. A superimposed pneumonia would be difficult to exclude. ACT 112: Negative or not required by law. Electronically signed by: Malik Fatima M.D. 01/26/2024 9:52 AM Chest X-Ray 01/27/24 06:00 XR chest 1V portable CLINICAL HISTORY: eval lines/tubes/lung rodriguez COMPARISON STUDY: Chest CT January 20, 2024. Chest radiograph January 26, 2024. FINDINGS: Tracheostomy tube is in place. Feeding tube is coiled within the stomach. There is no pneumothorax. Small bilateral pleural effusions are again noted. Interstitial thickening persists. Bilateral airspace opacities have slightly improved. IMPRESSION: 1. Tracheostomy tube in place. Tip of feeding tube within the stomach. 2. Mild improvement in interstitial thickening and bilateral airspace opacities favors improving pulmonary edema. Superimposed pneumonia is considered less likely but would be difficult to exclude. ACT 112: Negative or not required by law. Electronically signed by: Wong Montenegro M.D. 01/27/2024 7:56 AM KUB X-Ray 01/27/24 22:35 KUB HISTORY: Status post placement of a feeding tube confirm coresafe tube feed placement COMPARISON: 01/25/2024 FINDINGS: Air-filled loops of large and small bowel. The lower abdomen is excluded from the [id number]. Status post placement of a feeding tube with distal tip projected transversely in the expected location of the gastric body. The heart is enlarged. There are mixed interstitial and alveolar opacities of the lungs. IMPRESSION: Distal tip of feeding tube projects over the stomach. ACT 112: Negative or not required by law. The above report was generated using voice recognition software. It may contain grammatical, syntax or spelling errors. Electronically signed by: Lamont Levi M.D. 01/28/2024 7:14 AM Chest X-Ray 01/28/24 06:00 XR chest 1V portable HISTORY: eval lines/tubes/lung rodriguez COMPARISON: Chest 01/27/2024. FINDINGS: No pneumothorax. There are trace bilateral pleural effusions. A feeding tube is curled within the stomach. This remains unchanged. Tracheostomy tube appears in good position. Patchy bilateral airspace opacities most pronounced within the right lung persist. No acute fractures. IMPRESSION: 1. The tracheostomy tube remains in place. The feeding tube terminates in the stomach, unchanged. 2. No change in the patchy bilateral airspace opacities which may represent pulmonary edema or a pneumonitis. ACT 112: Negative or not required by law. Electronically signed by: Malik Fatima M.D. 01/28/2024 7:32 AM Chest X-Ray 01/29/24 06:00 XR chest 1V portable HISTORY: 58 years-old Male eval lines/tubes/lung rodriguez acute shortness of breath COMPARISON: 01/28/2024 TECHNIQUE: AP view of the chest FINDINGS: No pneumothorax. There are trace bilateral pleural effusions. A feeding tube is curled within the stomach. This remains unchanged. Tracheostomy tube appears in good position. Patchy bilateral airspace opacities most pronounced within the right lung persist. No acute fractures. IMPRESSION: 1. Unchanged positioning of the tracheostomy cannula and visualized feeding tube. 2. No pneumothorax. 3. Unchanged patchy mixed interstitial and alveolar opacities of the lungs, right greater than left. ACT 112: Negative or not required by law. The above report was generated using voice recognition software. It may contain grammatical, syntax or spelling errors. Electronically signed by: Lamont Levi M.D. 01/29/2024 7:52 AM KUB X-Ray 01/30/24 12:35 KUB CLINICAL HISTORY: Check placement of feeding tube COMPARISON STUDY: KUB January 27, 2024. FINDINGS: The tip of the feeding tube projects over the first portion of the duodenum. Visualized bowel gas pattern is normal. Multifocal airspace opacities are noted, including confluent right upper lung opacity. Tracheostomy tube is partially imaged. IMPRESSION: Tip of feeding tube projects over the first portion of the duodenum. ACT 112: Negative or not required by law. Electronically signed by: Wong Montenegro M.D. 01/30/2024 1:55 PM KUB X-Ray 01/30/24 20:30 XR KUB/Abdomen 1 view CLINICAL HISTORY: New coresafe inserted TECHNIQUE: 1 view of the abdomen was obtained. Comparison: Comparison is made to abdomen radiograph 01/30/2024 FINDINGS: Enteric tube terminates in the stomach. Rectal temperature probe is noted. Degenerative changes are seen in the visualized skeleton. The bowel gas pattern is nonobstructive. A moderate amount of stool is noted within the large bowel. IMPRESSION: Satisfactory position of enteric tube. ACT 112: Negative or not required by law. Electronically signed by: Abdias Hennessy M.D. 01/31/2024 7:09 AM Chest X-Ray 01/31/24 07:00 XR chest 1V portable CLINICAL HISTORY: resp failure TECHNIQUE: Single frontal radiograph of the chest was obtained. Comparison: Comparison is made to chest radiograph 01/29/2024 FINDINGS: Stable tracheostomy tube. Enteric tube is stable. The cardiomediastinal silhouette is normal. Multifocal airspace opacities are seen. No evidence of pleural effusion or pneumothorax. IMPRESSION: Multiple airspace opacities are unchanged from prior exam. ACT 112: Negative or not required by law. Electronically signed by: Abdias Hennessy M.D. 01/31/2024 7:40 AM PG Care Time/CCT Total # of Minutes Spent Total Time Spent with Patient: Total time spent is greater than 50% in coordination of care (as documented) at patient's floor/unit and/or counseling patient: I spent 75 minutes overall addressing this complex case: 25 min in medical data review/discussion with referring provide r(s) and/or preparation for the visit 20 min in direct interaction with the patient/exam 00 min in Advance Care Planning/Goals of Care discussions as detailed above in note (must be >16min) 15 min in subsequent review and synthesis of assessment and plan 15 min communicating with other providers regarding the patient's case: Primary team, nursing, care management [place] [address] IN/OBS CONSULT LVL 5,80M Patient Type New Medical Decision Making High Complexity Diagnoses Anxiety about health R45.89 Dyspnea and respiratory abnormalities R06.00; R06.89 Weakness generalized R53.1 Severe muscle deconditioning R29.898 Palliative care by specialist Z51.5 Physical deconditioning R53.81 COPD with emphysema J43.9 Respiratory failure J96.90 Aspiration pneumonia J69.0 NAHUN (acute kidney injury) N17.9 Cardiogenic shock R57.0 History of alcohol abuse F10.11 Atrial flutter with rapid ventricular response I48.92 Atrial fibrillation with rapid ventricular response I48.91 Acute on chronic HFrEF (heart failure with reduced ejection fraction) I50.23 Alcohol use Z72.89 Paroxysmal atrial fibrillation with RVR I48.0 Current smoker F17.200 Non-ischemic cardiomyopathy I42.8
--- NOTE | 2024-02-01 21:51 | Billing Data ---
Date of Service February 01, 2024 Coding Level of Care Code 53632 SUB INP/OBS CARE
[2024-02-02 04:56] LABS: BUN Creatinine Ratio 25.6 (10-20); Calcium 7.8 mg/dl (8.6-10.3); Creatinine Clr Calc Pharmacy 152.6 ml/min; Est GFR (African American) 147.3 ml/min; Est GFR (Non-African American) 127.1 ml/min; Magnesium 1.8 mg/dl (1.7-2.4); Phosphorus 3.4 mg/dl (2.5-4.9); Potassium 3.8 mmol/L (3.5-5.1)
[2024-02-02 05:04] LABS: ANTI-Xa, UFH(UnfractionatedHep 0.47 IU/ml (0.3-0.7)
[2024-02-02] MEDS: POTASSIUM CHLORIDE 20 MEQ/15 ML UDC NG SCH (05:52)
[2024-02-02] MEDS: MAGNESIUM OXIDE 400 MG TAB NG SCH (05:52)
--- NOTE | 2024-02-02 07:38 | Critical Care Progress Note ---
Date of Service February 02, 2024 Assessment & Plan (1) Aspiration pneumonia: (2) Cardiogenic shock: (3) Respiratory failure: (4) COPD with emphysema: (5) Bilirubinemia: (6) Transaminitis: (7) Atrial flutter with rapid ventricular response: (8) Acute on chronic HFrEF (heart failure with reduced ejection fraction): (9) Non-ischemic cardiomyopathy: Plan Plan Impression: 58-year-old male status postcardiac arrest with history of heart failure and atrial fibrillation medical noncompliance. He was extubated but then required noninvasive positive pressure ventilation and eventually reintubation and subsequent percutaneous dilatation of tracheostomy placement. 24-hour events: Patient currently doing well on trach collar. Denies any overt complaints. Recommendations: Neuro: Off sedation. Analgesia appears adequate. Continue physical therapy and Occupational Therapy for rehab. No obvious sequelae from the patient's prior arrest Cardiac: Status post cardiac arrest: Improving with supportive therapy. Pulmonary edema which has improved with aggressive diuresis. Atrial fibrillation with rapid ventricular response responding to digoxin, amiodarone, beta-blockers and anticoagulation. Continue amiodarone at 400 mg daily for the next few days then decrease down to 200 mg a day. Blood pressures have been normotensive to hypertensive the last few days. - increase digoxin to 0.25 mg daily (digoxin level, 0.4 (normal, 0.8 - 2.0)), next digoxin level ordered for Wednesday, 02/01 - Continue anticoagulation, switching from a heparin drip to Lovenox, 60 mg, subQ, q12hrs - BNP, 288 <-- 3197, sig. improvement from a week ago - repeat Echocardiogram: 1) LVEF 15-20% w/ severe global LV dysfunction, 2) mildly dilated LV - Cardiology consulted, appreciate recommendations regarding resumption/initiation of HF meds--Entresto, (currently on) beta joao, a mineral corticoid antagonist, an SGLT2i Respiratory: Respiratory failure: Secondary to pulmonary edema. Continue diuresis and weaning oxygen as tolerated. Will pursue trach collar trials as clinically tolerated. Continue routine trach care. Reported history of COPD but PFTs not available. No evidence of bronchospasm. No indication for steroids. Not bronchospastic for now. Continue albuterol as needed. GI: Currently on tube feeding and tolerating reasonably well. Continue PPI RENAL/LYTES: Hyponatremia and hypokalemia worsening. Replace potassium as able. Avoid hypotonic fluids. Continue serial labs. Electrolyte replacement protocol in place. Continue to hold Lasix today. BMP, Mg ordered for 2 pm today - I's and O's, balance +540 mL (1490 - 950 mL) - Tolvaptan, 15 mg, PO, once ordered - repeat BMP, 2 pm today : Burk catheter in place for tracking intake and output. ENDO: Glycemic control per protocol HEME/ONC: No current issues ID: Patient with persistent low-grade fevers. He has completed 10 days of broad-spectrum antibiotics and cultures have remained negative. Continue to follow at this point in time. procalcitonin, 0.45 (01/31/24) Prophylaxis VTE: Lovenox, 60 mg, subQ, q12hrs GI: Pantoprazole Lines: peripheral lines x 3 Diet: Full strength enteral tube feeds Keep in ICU until tolerating trach collar greater than 24 hours Admission and Anticipated Discharge Date Admission Date: January 20, 2024 Supervising Physician Co-Signing Physician Notes Agree with the note as above unless otherwise specified. Patient with ongoing severe cardiomyopathy on repeat echo. Spoke with interventional cardiology who plans on repeating cardiac catheterization in the next 1 to 2 days. Will decrease amiodarone to 200 mg daily. Transition off heparin to Lovenox. Continue tube feeds and GI prophylaxis. Given a dose of tolvaptan today and will monitor response of sodium. Hyponatremia poor prognostic finding in people with advanced CHF. Still awaiting placement to a facility capable of handling her chronic ventilator and tracheostomy. Subjective Patient is a 58 yo M w/ a PMHx of HFrEF, AFib w/ RVR, alcohol use, nonischemic cardiomyopathy, HTN who was admitted to the ICU due to AFib w/ RVR, significant pulmonary edema, and respiratory failure. Today the patient continues to endorse subjective improvement, normal formed BM's (twice a day), improving respiratory status, feeling more energetic/vigorous. Patient denies any AP/N/V, CP or palpitations, any subjective feeling of dyspnea on current oxygen requirements (trach collar, 35% FiO2, 10 L/min), where his O2Sats have been between 91-95. Review of Systems Constitutional: no fever, no chills and no weakness Respiratory: no dyspnea (no dyspnea on current O2 requirements) Cardiovascular: no chest pain, no chest pain at rest and no palpitations Gastrointestinal: no abdominal pain, no nausea, no vomiting and no diarrhea/loose stools Genitourinary: no dysuria or no urinary frequency Neurologic: no tingling, no numbness and no headache(s) Physical Exam Constitutional: WD/WN, vitals as above Respiratory: no respiratory distress Auscultation: + crackles (in the bases of lungs, posteriorly); no diminished lung sounds and no wheezes Cardiovascular: Rate/Rhythm: regular rate and regular rhythm Gastrointestinal (Abdomen): normal bowel sounds, soft, nontender, no hepatosplenomegaly Psychiatric: A+Ox3, euthymic affect Results & Data Results & Data Vital Signs (Past 12 Hours) Vital Signs Temp Pulse Resp BP Pulse Ox O2 Del Method FiO2 02/02/24 07:07 83 28 H 96 35 02/02/24 05:45 79 20 123/69 95 02/02/24 04:48 82 24 127/66 96 02/02/24 04:00 81 25 H 96 02/02/24 04:00 130/66 02/02/24 04:00 35 02/02/24 03:50 84 33 H 93 35 02/02/24 03:00 82 29 H 131/68 92 02/02/24 01:36 78 20 132/69 97 02/02/24 01:13 37.3 C 02/02/24 00:18 82 21 95 02/02/24 00:00 119/64 02/02/24 00:00 119/64 02/02/24 00:00 35 02/01/24 23:57 81 23 94 02/01/24 23:47 84 02/01/24 23:36 84 28 H 94 35 02/01/24 23:00 117/63 02/01/24 23:00 117/63 02/01/24 23:00 117/63 02/01/24 22:00 132/70 02/01/24 22:00 132/70 02/01/24 21:57 87 21 91 02/01/24 21:01 88 02/01/24 21:00 120/71 02/01/24 20:45 84 22 96 02/01/24 20:03 88 31 H 96 02/01/24 20:00 108/61 02/01/24 20:00 108/61 02/01/24 20:00 CPAP 02/01/24 20:00 35 02/01/24 19:50 89 34 H 99 35 02/01/24 19:48 90 22 97
[2024-02-02] MEDS ORDERED: DIGOXIN ELIXIR 0.05MG/ML PO SCH (10:00)
--- NOTE | 2024-02-02 10:41 | Nephrology Progress Note ---
Date of Service February 02, 2024 Assessment & Plan (1) Hyponatremia: (2) Cardiogenic shock: (3) Atrial fibrillation with rapid ventricular response: (4) Non-ischemic cardiomyopathy: (5) Acute systolic congestive heart failure, NYHA class 4: Plan 58 yo male with history of A-fib with RVR, hypertension nonischemic cardiomyopathy admitted to hospital with A-fib with RVR, and acute decompensated CHF and witnessed cardiac arrest in the ER after ran out of medication for more than 2 months. Extubated and currently has trach collar. Acute hyponatremia with history of mild chronic hyponatremia serum sodium around 132-134, on admission sodium was 131 which has slowly declined and lately sodium staying around 124 to 125. Urine osmolality elevated at 561. EF dropped further to 15 to 20%. Hyponatremia most likely secondary to high ADH state in the setting of severe cardiomyopathy, CHF and hypotension. -- continue on Lasix 40 mg daily -- Tolvaptan 15 mg x 1 dose now Admission and Anticipated Discharge Date Admission Date: January 20, 2024 Anita Casanova was seen and evaluated this morning. He was moved out of bed to bedside chair this morning. Denies any specific symptoms. Blood pressure stable. Sodium dropped further at 123. Net positive on Lasix 40 mg. Review of Systems Review of Systems: Review of system was unremarkable except mentioned above. Physical Exam Constitutional: WD/WN, vitals as above + ill appearing; no acute distress Eyes: + anicteric sclerae Respiratory: no respiratory distress Auscultation: + crackles Cardiovascular: Heart Sounds: normal S1 and normal S2 Extremities: no edema Musculoskeletal: Extremities: extremities normal to inspection Neurologic: no focal motor deficits Psychiatric: Orientation: alert and cooperative Results & Data Vital Signs (Past 12 Hours) Vital Signs Temp Pulse Resp BP Pulse Ox O2 Del Method O2 Flow Rate 02/02/24 10:03 92 H 02/02/24 09:06 88 25 H 127/71 91 02/02/24 09:00 127/71 02/02/24 09:00 127/71 02/02/24 08:27 90 23 89 L 02/02/24 08:00 178/82 H 02/02/24 08:00 95 H 15 178/82 H 91 Trach Collar 02/02/24 08:00 82 02/02/24 08:00 Trach Collar 10 02/02/24 08:00 02/02/24 07:07 83 28 H 96 02/02/24 07:00 81 25 H 135/73 96 CPAP 02/02/24 05:45 79 20 123/69 95 02/02/24 04:48 82 24 127/66 96 02/02/24 04:00 81 25 H 96 02/02/24 04:00 130/66 02/02/24 04:00 02/02/24 03:50 84 33 H 93 02/02/24 03:00 82 29 H 131/68 92 02/02/24 01:36 78 20 132/69 97 02/02/24 01:13 37.3 C 02/02/24 00:18 82 21 95 02/02/24 00:00 119/64 02/02/24 00:00 119/64 02/02/24 00:00 02/01/24 23:57 81 23 94 02/01/24 23:47 84 02/01/24 23:36 84 28 H 94 02/01/24 23:00 117/63 02/01/24 23:00 117/63 02/01/24 23:00 117/63 FiO2 02/02/24 10:03 02/02/24 09:06 02/02/24 09:00 02/02/24 09:00 02/02/24 08:27 02/02/24 08:00 02/02/24 08:00 35 02/02/24 08:00 02/02/24 08:00 35 02/02/24 08:00 35 02/02/24 07:07 35 02/02/24 07:00 35 02/02/24 05:45 02/02/24 04:48 02/02/24 04:00 02/02/24 04:00 02/02/24 04:00 35 02/02/24 03:50 35 02/02/24 03:00 02/02/24 01:36 02/02/24 01:13 02/02/24 00:18 02/02/24 00:00 02/02/24 00:00 02/02/24 00:00 35 02/01/24 23:57 02/01/24 23:47 02/01/24 23:36 35 02/01/24 23:00 02/01/24 23:00 02/01/24 23:00 PG Care Time/CCT Total # of Minutes Spent Total Time Spent with Patient: Total time spent is greater than 50% in coordination of care (as documented) at patient's floor/unit and/or counseling patient: Coding Level of Care Code 14990 SUB INP/OBS CARE 2/35MIN Diagnoses Hyponatremia E87.1 Cardiogenic shock R57.0 Atrial fibrillation with rapid ventricular response I48.91 Non-ischemic cardiomyopathy I42.8 Acute systolic congestive heart failure, NYHA class 4 I50.21
[2024-02-02] MEDS: TOLVAPTAN 15 MG TABLET PO SCH (10:53)
[2024-02-02] MEDS: [UNRECOGNIZED DRUG - REMARK] ONE (10:54)
[2024-02-02] MEDS: ENOXAPARIN INJ 60 MG/0.6 ML SYR SQ SCH (10:54)
--- NOTE | 2024-02-02 13:15 | Hospitalist Progress Note ---
Date of Service February 02, 2024 Assessment & Plan (1) Respiratory failure: Plan: Patient was admitted to the hospital and found to be in respiratory failure CT scan of the chest showed evidence of likely aspiration pneumonia completed Zosyn He required intubation and ventilation, was extubated, However failed weaning trial Reintubation 01/25/2024. 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 recommendations and curing finisher now with trach collar and Passy Miur valve, so able to talk PRN Morphine for air hunger Continue trach care (2) Atrial fibrillation with rapid ventricular response: Plan: Patient went into A-fib with RVR Started on Cardizem, Amiodarone and digoxin Currently in sinus rhythm continue IV heparin and metoprolol Cardiology on board, appreciate recs (3) Hyponatremia: Plan: Likely driven by ADH on account of CHF Nephrology on board has been started on Tolvaptan Continue Lasix (4) Non-ischemic cardiomyopathy: Plan: cardiopulmonary resuscitation with cpr for decompensated cardiogenic shock has required pressors with cardiogenic shock, had been on dobutamine CT head without acute changes heparin gtt now restarted with afib/flutter. In past had thrombus in ventricle Monitor I/O, daily weight Continue Lasix (5) History of alcohol abuse: Plan: unclear of last drink, no sign of withdrawal on thiamine also tobacco abuse (6) Physical deconditioning: Plan: Continue physical therapy (7) Acute on chronic HFrEF (heart failure with reduced ejection fraction): (8) Low grade fever: Plan: per the RN, the rectal probe showed a slightly higher temp than the oral one, which is wnl Has completed a course of antibiotics anyway Plan Continue to monitor in the ICU, SW sent out referrals for LTAC Admission and Anticipated Discharge Date Admission Date: January 20, 2024 Subjective patient seen and examined, now with trach collar and Passy Miur valve, so able to talk Review of Systems Review of Systems: All systems reviewed are negative, apart from the ones contained in the history. Physical Exam Physical Exam: The patient is awake, alert and oriented 3, trach in situ HEENT--PERRL, EOMI, mucous membranes and oropharynx mildly dry Neck--trach in situ Heart--normal S1 and S2. No murmurs, rubs or gallops. Lungs--clear bilaterally, no respiratory distress, no accessory muscle use. Abdomen--normal bowel sounds and soft. Extremities--no cyanosis or clubbing. No edema. Dermatologic--normal skin turgor, normal color, no abnormal lymph nodes, no rash. Neurologic--cranial nerves II through XII grossly intact. Rheumatologic--normal range of motion. Psychiatric--normal affect. Results & Data Results & Data Vital Signs (Past 12 Hours) Vital Signs Temp Pulse Resp BP Pulse Ox O2 Del Method O2 Flow Rate 02/02/24 11:17 153/97 H 02/02/24 11:17 153/97 H 02/02/24 11:06 89 29 H 153/97 H 90 02/02/24 11:00 90 29 H 93 02/02/24 10:09 93 H 28 H 91 02/02/24 10:03 92 H 02/02/24 09:06 88 25 H 127/71 91 02/02/24 09:00 127/71 02/02/24 09:00 127/71 02/02/24 08:27 90 23 89 L 02/02/24 08:00 178/82 H 02/02/24 08:00 95 H 15 178/82 H 91 Trach Collar 02/02/24 08:00 82 02/02/24 08:00 Trach Collar 10 02/02/24 08:00 02/02/24 07:07 83 28 H 96 02/02/24 07:00 81 25 H 135/73 96 CPAP 02/02/24 05:45 79 20 123/69 95 02/02/24 04:48 82 24 127/66 96 02/02/24 04:00 81 25 H 96 02/02/24 04:00 130/66 02/02/24 04:00 02/02/24 03:50 84 33 H 93 02/02/24 03:00 82 29 H 131/68 92 02/02/24 01:36 78 20 132/69 97 02/02/24 01:13 99.1 F FiO2 02/02/24 11:17 02/02/24 11:17 02/02/24 11:06 02/02/24 11:00 02/02/24 10:09 02/02/24 10:03 02/02/24 09:06 02/02/24 09:00 02/02/24 09:00 02/02/24 08:27 02/02/24 08:00 02/02/24 08:00 35 02/02/24 08:00 02/02/24 08:00 35 02/02/24 08:00 35 02/02/24 07:07 35 02/02/24 07:00 35 02/02/24 05:45 02/02/24 04:48 02/02/24 04:00 02/02/24 04:00 02/02/24 04:00 35 02/02/24 03:50 35 02/02/24 03:00 02/02/24 01:36 02/02/24 01:13 PG Care Time/CCT Total # of Minutes Spent Total Time Spent with Patient: Total time spent is greater than 50% in coordination of care (as documented) at patient's floor/unit and/or counseling patient: Coding Level of Care Code 40606 SUB INP/OBS CARE 2/35MIN Diagnoses Respiratory failure J96.90 Atrial fibrillation with rapid ventricular response I48.91 Hyponatremia E87.1 Non-ischemic cardiomyopathy I42.8 History of alcohol abuse F10.11 Physical deconditioning R53.81 Acute on chronic HFrEF (heart failure with reduced ejection fraction) I50.23 Low grade fever R50.9 Time Spent (min) 35
[2024-02-02] MEDS: ALBUTEROL 0.083% NEBU SOLN 3 ML VIAL NEB PRN (13:28)
--- NOTE | 2024-02-02 14:38 | Billing Data ---
Date of Service February 02, 2024 Coding Level of Care Code 67773 SUB INP/OBS CARE
[2024-02-02 14:57] LABS: Calcium 8.3 mg/dl (8.6-10.3); Potassium 4.7 mmol/L (3.5-5.1)
[2024-02-02 15:02] LABS: BUN Creatinine Ratio 22.6 (10-20); Creatinine Clr Calc Pharmacy 122.9 ml/min; Est GFR (African American) 135.2 ml/min; Est GFR (Non-African American) 116.6 ml/min
--- NOTE | 2024-02-02 18:58 | XRay Report ---
XR chest 1V portable HISTORY: 58 years-old Male Aspiration acute shortness of breath with aspiration COMPARISON: 01/31/2024 TECHNIQUE: AP view of the chest FINDINGS: Unchanged positioning of the tracheostomy cannula. Cardiac silhouette is enlarged. Bilateral mixed in terstitial and alveolar opacities are redemonstrated, mildly progressed on the left. No pneumothorax or large pleural effusion. Feeding tube courses into the stomach. Bones appear grossly intact. IMPRESSION: 1. Tracheostomy cannula and feeding tube as above. 2. Bilateral mixed interstitial and alveolar opacities redemonstrated, slightly progressed on the lef t. 3. No pneumothorax. ACT 112: Negative or not required by law. The above report was generated using voice recognition software. It may contain grammatical, syntax o r spelling errors. Electronically signed by: Lamont Levi M.D. 02/02/2024 6:56 PM
[2024-02-02] MEDS: PIPERACILLIN/TAZOBACTAM 4.5 GM/100 ML BAG IV ONE (20:12)
--- NOTE | 2024-02-02 21:24 | Electrocardiogram Report ---
Test Reason : Blood Pressure : */* mmHG Vent. Rate : 96 BPM Atrial Rate : 96 BPM P-R Int : 152 ms QRS Dur : 86 ms QT Int : 354 ms P-R-T Axes : 65 -6 83 degrees QTcB Int : 447 ms Poor data quality, interpretation may be adversely affected Normal sinus rhythm Possible Left atrial enlargement Nonspecific T wave abnormality Abnormal ECG When compared with ECG of 27-Jan-2024 15:26, Sinus rhythm has replaced Atrial fibrillation Confirmed by Lan Pinon ([id number]) on 02/02/2024 9:24:46 PM Referred By: REFERRED SELF Confirmed By: Lan Pinon
--- NOTE | 2024-02-02 22:09 | Cardiology Progress Note ---
Date of Service February 02, 2024 Assessment & Plan (1) Acute on chronic HFrEF (heart failure with reduced ejection fraction): Plan: EF 15-20%, severe global LV dysfunction 2. Persistent respiratory failure post trach 3. Prior PEA arrest/cardiogenic shock 4. A-fib with RVR--converted to NSR; on amio 5. Hyponatremia Respiratory status improved but congestion persists. Today he is well perfused with improved BPs and pulse pressure. Remains in sinus rhythm on amiodarone. Renal function stable but still with moderate hyponatremia. Reviewed repeat limited echo. LV more dilated and slight further decline in LVEF from admission with severe global LV dysfunction. Suspect cardiomyopathy non-ischemic, potentially related to prior alcohol intake. Feel though we should confirm no new obstructive CAD. With his degree of heart failure would consider referral to advanced heart failure clinic at a tertiary center for consideration of LVAD. Not likely to be a transplant candidate and potentially not a LVAD candidate due to social issues and home support. Discussed briefly with patient today. Unsure how much was grasped. He was clear though that wanted to be aggressive with his care going forward. Overall is making slow, gradual progress and recommend continued diuresis and gentle re-addition of GDMT as BP allows with the hope that advanced HF eval could be done as an outpatient. -- On lasix 40mg daily - Consider BID if not negative >500ml -- plan on left and right heart cath in next day or 2 to rule out ICM and assess hemodynamics -- continue rhythm control with amiodarone. Ok to reduce to 200mg daily -- continue current metoprolol, digoxin. -- Add back low dose valsartan as BP allows -- Agree with tolvaptan 15mg daily -- Continue anticoagulation, currently on lovenox Will follow Admission and Anticipated Discharge Date Admission Date: January 20, 2024 Subjective Seen early this afternoon. He was sitting up in chair eating some of his lunch. Denied pain. Feels breathing improving. Clear that wanted to be aggressive with his care going forward. Tele reviewed- sinus rhythm, no events. Review of Systems Review of Systems: All systems reviewed & are unremarkable except as noted in HPI & below Physical Exam Physical Exam: General: comfortable, up in chair. HEENT: Sclerae anicteric Lungs: Coarse, rhonchi bilaterally Cardiac: Regular, no murmurs Vascular: 2+ radial pulses. Abdomen: Soft Extremities: warm, trace bilateral edema. Results & Data Vital Signs (Past 12 Hours) Vital Signs Temp Pulse Resp BP Pulse Ox FiO2 02/02/24 20:00 35 02/02/24 19:38 79 30 H 97 35 02/02/24 18:03 86/58 L 02/02/24 18:01 83/50 L 02/02/24 18:01 83/50 L 02/02/24 17:51 101.5 F H 90 0 L 90 02/02/24 17:09 102.0 F H 97 H 0 L 89 L 02/02/24 17:00 126/68 02/02/24 16:57 101.3 F H 98 H 0 L 92 02/02/24 16:12 94 H 29 H 97 02/02/24 16:00 114/64 02/02/24 16:00 114/64 02/02/24 16:00 35 02/02/24 16:00 99 H 02/02/24 15:54 99 H 34 H 96 02/02/24 15:36 99 H 32 H 96 35 02/02/24 15:30 100.4 F H 02/02/24 15:00 115/63 02/02/24 15:00 115/63 02/02/24 15:00 95 H 32 H 97 02/02/24 13:34 101 H 37 H 94 35 02/02/24 13:07 169/83 H 02/02/24 12:00 93 H 32 H 89 L 02/02/24 12:00 159/89 H 02/02/24 12:00 35 02/02/24 11:17 153/97 H 02/02/24 11:17 153/97 H 02/02/24 11:06 89 29 H 153/97 H 90 02/02/24 11:00 90 29 H 93 02/02/24 10:09 93 H 28 H 91 02/02/24 10:03 92 H PG Care Time/CCT Total # of Minutes Spent Total Time Spent with Patient: Total time spent is greater than 50% in coordination of care (as documented) at patient's floor/unit and/or counseling patient: Coding Level of Care Code 03720 SUB INP/OBS CARE 3/50MIN Diagnoses Acute on chronic HFrEF (heart failure with reduced ejection fraction) I50.23
[2024-02-03] MEDS: PIPERACILLIN/TAZOBACTAM 4.5 GM/100 ML BAG IV SCH (00:04)
[2024-02-03 05:01] LABS: ANTI-Xa, UFH(UnfractionatedHep 0.53 IU/ml (0.3-0.7)
[2024-02-03 05:44] LABS: Calcium 8.2 mg/dl (8.6-10.3); Magnesium 1.9 mg/dl (1.7-2.4); Potassium 3.8 mmol/L (3.5-5.1)
[2024-02-03 05:50] LABS: BUN Creatinine Ratio 23.5 (10-20); Creatinine Clr Calc Pharmacy 127.7 ml/min; Est GFR (African American) 137.3 ml/min; Est GFR (Non-African American) 118.5 ml/min; Phosphorus 3.3 mg/dl (2.5-4.9)
[2024-02-03] MEDS ORDERED: MAGNESIUM SULFATE / D5W 1 GM/100 ML BAG IV SCH (06:00)
[2024-02-03] MEDS ORDERED: POTASSIUM CHLORIDE / WTR 10 MEQ/100 ML PLCT IV SCH ×2 (06:00→07:00)
[2024-02-03] MEDS: MAGNESIUM OXIDE 400 MG TAB NG SCH (06:32)
[2024-02-03] MEDS: POTASSIUM CHLORIDE 20 MEQ/15 ML UDC NG SCH (06:32)
[2024-02-03] MEDS: MAGNESIUM SULFATE / D5W 1 GM/100 ML BAG IV ONE (07:17)
[2024-02-03] MEDS: AMIODARONE 200 MG TAB PO SCH (08:25)
--- NOTE | 2024-02-03 10:14 | XRay Report ---
XR chest 1V portable CLINICAL HISTORY: f/u COMPARISON STUDY: Chest radiograph February 02, 2024. FINDINGS: Tracheostomy tube is in place. Tip of feeding tube is within the distal stomach. There is n o pneumothorax. No pleural effusion is identified. Patient is mildly rotated. Interstitial thickening and bilateral airspace opacities are similar to prior exam. IMPRESSION: 1. No change in interstitial thickening and bilateral airspace opacities which could reflect pneumoni a, pulmonary edema or acute lung injury/ARDS. 2. No pneumothorax. ACT 112: Negative or not required by law. Electronically signed by: Wong Montenegro M.D. 02/03/2024 10:13 AM
[2024-02-03 10:53] LABS: Basophils # (auto) 0.07 K/uL (0.00-0.20); Basophils % (auto) 0.5 %; Eosinophils # (auto) 0.09 K/uL (0.00-0.50); Eosinophils % (auto) 0.7 %; Hematocrit (blood only) 36.7 % (42.0-52.0); Hemoglobin 12.3 g/dl (14.0-18.0); Immature Granulocytes % (auto) 1.5 %; Lymphocytes # (auto) 0.67 K/uL (1.20-3.40); Lymphocytes % (auto) 5.1 %; Mean Corpuscular Hemoglobin 34.1 pg (25.0-34.0); Mean Corpuscular Hgb Conc 33.5 g/dL (32.0-36.0); Mean Corpuscular Volume 101.7 fL (80.0-100.0); Mean Platelet Volume 9.8 fL (9.4-12.4); Monocytes # (auto) 1.34 K/uL (0.11-0.59); Monocytes % (auto) 10.2 %; Neutrophils # (auto) 10.72 K/uL (1.40-6.50); Platelet Count 456 K/uL (130-400); RDW Coefficient of Variation 13.8 % (11.5-14.5); RDW Standard Deviation 51.8 fL (36.4-46.3); Red Blood Count 3.61 M/uL (4.70-6.10); White Blood Count 13.09 K/ul (4.8-10.8)
--- NOTE | 2024-02-03 11:02 | Critical Care Progress Note ---
Date of Service February 03, 2024 Assessment & Plan (1) Aspiration pneumonia: (2) Cardiogenic shock: (3) Respiratory failure: (4) COPD with emphysema: (5) Bilirubinemia: (6) Transaminitis: (7) Atrial flutter with rapid ventricular response: (8) Acute on chronic HFrEF (heart failure with reduced ejection fraction): (9) Non-ischemic cardiomyopathy: Plan Plan Impression: 58-year-old male status postcardiac arrest with history of heart failure and atrial fibrillation medical noncompliance. He was extubated but then required noninvasive positive pressure ventilation and eventually reintubation and subsequent percutaneous dilatation of tracheostomy placement. 24-hour events: Periodic episodes of dyspnea with fever. Recommendations: Neuro: Off sedation. Analgesia appears adequate. Continue physical therapy and Occupational Therapy for rehab. No obvious sequelae from the patient's prior arrest. Cardiac: Patient is status post cardiac arrest and atrial fibrillation. Now on lower dose of amiodarone. Cardiology plans on doing left heart cath. EF still's profoundly reduced to 15%. Goal-directed therapy per cardiology as blood pressure allows. Patient on amiodarone and digoxin for rate control and rhythm control of underlying A-fib. Patient also on therapeutic Lovenox. Respiratory: Patient with unclear respiratory picture. Possible combined aspiration pneumonitis and pulmonary edema. Also less likely would be amiodarone induced toxicity. Well below threshold to repeat a CT chest. Will obtain a BNP and a Pro-Dick today. Antibiotics have been reinitiated as of . Respiratory viral panel 01/31/2024 was negative. Continue trach collar trials as able and Passy-[place] valve as able. For support at night. GI: Currently on tube feeding and tolerating reasonably well. Continue PPI RENAL/LYTES: Hyponatremia improving with tolvaptan. Appreciate nephrology input. Will hold on additional tolvaptan dose at this time. : Burk catheter in place for tracking intake and output. ENDO: Glycemic control per protocol HEME/ONC: No current issues ID: Obtain urine cultures, blood cultures already obtained. Obtain procalcitonin. Continue Zosyn. Repeat nasal MRSA screen is pending. Prophylaxis VTE: Lovenox, 60 mg, subQ, q12hrs GI: Pantoprazole Lines: peripheral lines x 3 Diet: Full strength enteral tube feeds Keep in ICU until tolerating trach collar greater than 24 hours CRITICAL CARE TIME I have personally spent 44 minutes of critical care time in the direct management of this patient. This is a life/limb threatening event. This includes time spent evaluating patient, direct bedside care, chart review, placing orders, interpretation of diagnostic studies, discussion with consultants, maximino ent, and family members, as well as other required patient management activities. This time is exclusive of all separately billable procedures, and teaching time and separate from and in addition to any other critical care service time. Admission and Anticipated Discharge Date Admission Date: January 20, 2024 Subjective Patient spiking fevers overnight having periodic episodes of shortness of breath. Antibiotics were started and x-ray ordered. Chest x-ray today reveals interstitial thickening in the bilateral airspace opacities. Review of Systems Review of Systems: All systems reviewed & are unremarkable except as noted in HPI & below Physical Exam Constitutional: well developed, well nourished, cooperative and + mechanically ventilated; no acute distress Neck: Trach site clean dry and intact Respiratory: no respiratory distress, no labored breathing and not tachypneic Auscultation: + diminished lung sounds and + rhonchi; no crackles and no wheezes Cardiovascular: RRR, no murmur, no edema Gastrointestinal (Abdomen): normal bowel sounds, soft, nontender, no hepatosplenomegaly Neurologic: No focal deficit Results & Data Results & Data Vital Signs (Past 12 Hours) Vital Signs Temp Pulse Resp BP Pulse Ox O2 Del Method FiO2 02/03/24 10:49 87 02/03/24 09:00 131/76 02/03/24 09:00 37.7 C H 88 16 90 02/03/24 08:00 37.7 C H 90 16 84 L 02/03/24 08:00 160/76 H 02/03/24 08:00 160/76 H 02/03/24 08:00 160/76 H 02/03/24 08:00 Trach Collar 40 02/03/24 07:09 37.7 C H 85 0 L 98 02/03/24 07:00 128/73 02/03/24 06:57 37.8 C H 84 0 L 97 02/03/24 06:06 37.7 C H 83 26 H 92 Trach Collar 40 02/03/24 06:00 133/70 02/03/24 05:57 37.7 C H 85 26 H 91 Trach Collar 40 02/03/24 05:00 118/69 02/03/24 04:54 37.7 C H 79 26 H 98 35 02/03/24 04:12 37.6 C H 79 25 H 97 02/03/24 04:00 110/61 02/03/24 04:00 35 02/03/24 03:59 78 26 H 97 35 02/03/24 03:00 117/63 02/03/24 02:57 37.6 C H 76 26 H 97 35 02/03/24 02:07 37.6 C H 77 26 H 112/59 L 97 35 02/03/24 01:00 123/67 02/03/24 01:00 37.5 C 72 26 H 96 35 02/03/24 00:00 78 02/03/24 00:00 35 02/03/24 00:00 121/67 02/02/24 23:54 37.5 C 80 21 98 02/02/24 23:40 25 H 35 02/02/24 23:03 37.5 C 77 25 H 97 02/02/24 23:00 114/58 L 02/02/24 23:00 114/58 L 02/02/24 23:00 114/58 L 02/02/24 22:57 37.5 C 76 24 96 Coding Level of Care Code 08306 CRITICAL CARE 1ST 30-74M Diagnoses Aspiration pneumonia J69.0 Cardiogenic shock R57.0 Respiratory failure J96.90 COPD with emphysema J43.9 Bilirubinemia E80.6 Transaminitis R74.01 Atrial flutter with rapid ventricular response I48.92 Acute on chronic HFrEF (heart failure with reduced ejection fraction) I50.23 Non-ischemic cardiomyopathy I42.8 Time Spent (min) 44
[2024-02-03 11:50] LABS: Appearance Urine Cloudy (Clear); Bacteria Urine Automated None Seen (None Seen); Bilirubin Urine Negative (Negative); Blood Urine Negative (Negative); Cast Urine Automated 0-2 /lpf (0-2); Color Urine Dark Yellow; Epithelial Cell Urine Auto 0-2 /hpf (0-2); Glucose Urine UA Negative (Negative); Ketones Urine Negative (Negative); Leukocyte Esterase Urine 1+ (Negative); Nitrite Urine Negative (Negative); Protein Urine Trace (Negative); RBC Urine Automated 0-2 /hpf (0-2); Specific Gravity Urine 1.017 (1.000-1.030); Urobilinogen Urine Positive (Negative); pH Urine 8.5 (4.5-7.5)
--- NOTE | 2024-02-03 12:08 | Nephrology Progress Note ---
Date of Service February 03, 2024 Assessment & Plan (1) Hyponatremia: (2) Cardiogenic shock: (3) Atrial fibrillation with rapid ventricular response: (4) Non-ischemic cardiomyopathy: (5) Acute systolic congestive heart failure, NYHA class 4: Plan 58 yo male with history of A-fib with RVR, hypertension nonischemic cardiomyopathy admitted to hospital with A-fib with RVR, and acute decompensated CHF and witnessed cardiac arrest in the ER after ran out of medication for more than 2 months. Extubated and currently has trach collar. Acute hyponatremia with history of mild chronic hyponatremia serum sodium around 132-134, on admission sodium was 131 which has slowly declined and lately sodium staying around 124 to 125. Urine osmolality elevated at 561. EF dropped further to 15 to 20%. Hyponatremia most likely secondary to high ADH state in the setting of severe cardiomyopathy, CHF and hypotension. Blood pressure improved and staying stable. Volume status acceptable, net negative. Na improved 132. Plan for cardiac cath this afternoon. -- continue on Lasix 40 mg daily -- Serum sodium in am Admission and Anticipated Discharge Date Admission Date: January 20, 2024 Anita Casanova was seen and evaluated in ICU this morning. He is seem to be somewhat confused although awake, alert and not in any distress. Blood pressure improv ed. Net negative with diuretic and 1 dose of tolvaptan yesterday, sodium improved to 132. Review of Systems Review of Systems: Detailed review of system was unremarkable except mentioned above. Physical Exam Constitutional: WD/WN, vitals as above + ill appearing Eyes: + anicteric sclerae Respiratory: no respiratory distress Auscultation: + crackles Cardiovascular: Heart Sounds: normal S1 and normal S2 Extremities: no edema Musculoskeletal: Extremities: extremities normal to inspection Neurologic: no focal motor deficits Psychiatric: Orientation: alert and cooperative Results & Data Vital Signs (Past 12 Hours) Vital Signs Temp Pulse Resp BP Pulse Ox O2 Del Method FiO2 02/03/24 10:49 87 02/03/24 09:00 131/76 02/03/24 09:00 37.7 C H 88 16 90 02/03/24 08:00 37.7 C H 90 16 84 L 02/03/24 08:00 160/76 H 02/03/24 08:00 160/76 H 02/03/24 08:00 160/76 H 02/03/24 08:00 Trach Collar 40 02/03/24 07:09 37.7 C H 85 0 L 98 02/03/24 07:00 128/73 02/03/24 06:57 37.8 C H 84 0 L 97 02/03/24 06:06 37.7 C H 83 26 H 92 Trach Collar 40 02/03/24 06:00 133/70 02/03/24 05:57 37.7 C H 85 26 H 91 Trach Collar 40 02/03/24 05:00 118/69 02/03/24 04:54 37.7 C H 79 26 H 98 35 02/03/24 04:12 37.6 C H 79 25 H 97 02/03/24 04:00 110/61 02/03/24 04:00 35 02/03/24 03:59 78 26 H 97 35 02/03/24 03:00 117/63 02/03/24 02:57 37.6 C H 76 26 H 97 35 02/03/24 02:07 37.6 C H 77 26 H 112/59 L 97 35 02/03/24 01:00 123/67 02/03/24 01:00 37.5 C 72 26 H 96 35 PG Care Time/CCT Total # of Minutes Spent Total Time Spent with Patient: Total time spent is greater than 50% in coordination of care (as documented) at patient's floor/unit and/or counseling patient: Coding Level of Care Code 74956 SUB INP/OBS CARE 2/35MIN Diagnoses Hyponatremia E87.1 Cardiogenic shock R57.0 Atrial fibrillation with rapid ventricular response I48.91 Non-ischemic cardiomyopathy I42.8 Acute systolic congestive heart failure, NYHA class 4 I50.21
--- NOTE | 2024-02-03 13:32 | Hospitalist Progress Note ---
Date of Service February 03, 2024 Assessment & Plan (1) Respiratory failure: Plan: Patient was admitted to the hospital and found to be in respiratory failure CT scan of the chest showed evidence of likely aspiration pneumonia completed Zosyn He required intubation and ventilation, was extubated, However failed weaning trial Reintubation 01/25/2024. tracheostomy placed 01/26/24 now with trach collar and Passy [place] valve, so able to talk PRN Morphine for air hunger Continue trach care Appreciate pulmonology recommendations and base manager (2) Atrial fibrillation with rapid ventricular response: Plan: Patient went into A-fib with RVR Started on Cardizem, Amiodarone and digoxin and metoprolol Currently in sinus rhythm Now on Lovenox Cardiology on board, appreciate recs (3) Hyponatremia: Plan: Likely driven by ADH on account of CHF Nephrology on board has been started on Tolvaptan Continue Lasix Sodium level improving, hold Tolvaptan (4) Acute on chronic HFrEF (heart failure with reduced ejection fraction): Plan: ECHO showed EF15-20% with severe dyskinesia Continue Lasix Monitor I/O, daily weight (5) History of alcohol abuse: Plan: unclear of last drink, no sign of withdrawal on thiamine also tobacco abuse (6) Physical deconditioning: Plan: Continue physical therapy (7) Low grade fever: Plan: per the RN, the rectal probe showed a slightly higher temp than the oral one, which is wnl Has completed a course of antibiotics anyway (8) Non-ischemic cardiomyopathy: Plan Continue to monitor in the ICU, SW sent out referrals for Nursing Homes with Trach/vent capabilities Admission and Anticipated Discharge Date Admission Date: January 20, 2024 Subjective patient seen and examined, not in a ny distress, told me he would like to have a shave Review of Systems Review of Systems: All systems reviewed are negative, apart from the ones contained in the history. Physical Exam Physical Exam: The patient is awake, alert and oriented 3, trach in situ HEENT--PERRL, EOMI, mucous membranes and oropharynx mildly dry Neck--trach in situ Heart--normal S1 and S2. No murmurs, rubs or gallops. Lungs--clear bilaterally, no respiratory distress, no accessory muscle use. Abdomen--normal bowel sounds and soft. Extremities--no cyanosis or clubbing. No edema. Dermatologic--normal skin turgor, normal color, no abnormal lymph nodes, no rash. Neurologic--cranial nerves II through XII grossly intact. Rheumatologic--normal range of motion. Psychiatric--normal affect. Results & Data Results & Data Vital Signs (Past 12 Hours) Vital Signs Temp Pulse Resp BP Pulse Ox O2 Del Method FiO2 02/03/24 12:00 100 02/03/24 10:49 87 02/03/24 09:00 131/76 02/03/24 09:00 99.9 F H 88 16 90 02/03/24 08:00 99.9 F H 90 16 84 L 02/03/24 08:00 160/76 H 02/03/24 08:00 160/76 H 02/03/24 08:00 160/76 H 02/03/24 08:00 Trach Collar 40 02/03/24 07:09 99.9 F H 85 0 L 98 02/03/24 07:00 128/73 02/03/24 06:57 100.0 F H 84 0 L 97 02/03/24 06:06 99.9 F H 83 26 H 92 Trach Collar 40 02/03/24 06:00 133/70 02/03/24 05:57 99.9 F H 85 26 H 91 Trach Collar 40 02/03/24 05:00 118/69 02/03/24 04:54 99.9 F H 79 26 H 98 35 02/03/24 04:12 99.7 F H 79 25 H 97 02/03/24 04:00 110/61 02/03/24 04:00 35 02/03/24 03:59 78 26 H 97 35 02/03/24 03:00 117/63 02/03/24 02:57 99.7 F H 76 26 H 97 35 02/03/24 02:07 99.7 F H 77 26 H 112/59 L 97 35 PG Care Time/CCT Total # of Minutes Spent Total Time Spent with Patient: Total time spent is greater than 50% in coordination of care (as documented) at patient's floor/unit and/or counseling patient: Coding Level of Care Code 00421 SUB INP/OBS CARE 2/35MIN Diagnoses Respiratory failure J96.90 Atrial fibrillation with rapid ventricular response I48.91 Hyponatremia E87.1 Acute on chronic HFrEF (heart failure with reduced ejection fraction) I50.23 History of alcohol abuse F10.11 Physical deconditioning R53.81 Low grade fever R50.9 Non-ischemic cardiomyopathy I42.8 Time Spent (min) 35
--- NOTE | 2024-02-03 17:33 | Cardiology Progress Note ---
Date of Service February 03, 2024 Assessment & Plan (1) Acute on chronic HFrEF (heart failure with reduced ejection fraction): Plan: EF 15-20%, severe global LV dysfunction 2. Persistent respiratory failure post trach 3. Prior PEA arrest/cardiogenic shock 4. A-fib with RVR--converted to NSR; on amio 5. Hyponatremia Hemodynamically and electrically stable. Improved congestion on exam. Doing well on trach collar today. Net negative 500 yesterday. Renal function stable. Sodium improved after tolvaptan. Spiking fevers today. No clear source. -- If remains stable plan on Left and RHC tomorrow afternoon -- NPO tomorrow morning and hold morning Lovenox. -- On lasix 40mg daily - Consider BID if not negative >500ml -- continue rhythm control with amiodarone 200mg daily. -- continue current metoprolol, digoxin. -- Add back low dose valsartan as BP allows Will follow Admission and Anticipated Discharge Date Admission Date: January 20, 2024 Subjective Doing well this afternoon. States breathing a little easier. Denies chest pain. Has been up to chair, commode during day. Tired but no other new complaints. Intermittent fevers, now back on broad spectrum antibiotics. Review of Systems Review of Systems: All systems reviewed & are unremarkable except as noted in HPI & below Physical Exam Physical Exam: General: comfortable, up in chair. HEENT: Sclerae anicteric Lungs: Coarse, rhonchi bilaterally Cardiac: Regular, no murmurs Vascular: 2+ radial pulses. Abdomen: Soft Extremities: warm, trace bilateral edema. Results & Data Vital Signs (Past 12 Hours) Vital Signs Temp Pulse Resp BP Pulse Ox Pulse Ox O2 Del Method 02/03/24 16:03 100.2 F H 85 29 H 100 02/03/24 16:00 104/58 L 02/03/24 15:54 100.9 F H 85 26 H 100 02/03/24 15:49 18 99 02/03/24 15:00 100.9 F H 87 31 H 93 02/03/24 15:00 127/61 02/03/24 14:42 20 100 02/03/24 14:06 101.7 F H 89 32 H 96 02/03/24 14:01 136/72 02/03/24 14:00 101.7 F H 90 23 95 02/03/24 13:00 128/73 02/03/24 12:51 101.5 F H 86 25 H 94 02/03/24 12:00 101.5 F H 88 L 02/03/24 12:00 02/03/24 11:00 129/67 02/03/24 11:00 129/67 02/03/24 11:00 129/67 02/03/24 10:49 87 02/03/24 10:48 100.0 F H 88 19 93 02/03/24 10:03 100.2 F H 83 24 90 02/03/24 10:00 134/76 02/03/24 09:57 100.2 F H 85 0 L 88 L 02/03/24 09:00 131/76 02/03/24 09:00 99.9 F H 88 16 90 02/03/24 08:00 99.9 F H 90 16 84 L 02/03/24 08:00 160/76 H 02/03/24 08:00 160/76 H 02/03/24 08:00 160/76 H 02/03/24 08:00 Trach Collar 02/03/24 07:09 99.9 F H 85 0 L 98 02/03/24 07:00 128/73 02/03/24 06:57 100.0 F H 84 0 L 97 02/03/24 06:06 99.9 F H 83 26 H 92 Trach Collar 02/03/24 06:00 133/70 02/03/24 05:57 99.9 F H 85 26 H 91 Trach Collar O2 Del Method O2 Flow Rate FiO2 02/03/24 16:03 02/03/24 16:00 02/03/24 15:54 02/03/24 15:49 Nasal Cannula 6 02/03/24 15:00 02/03/24 15:00 02/03/24 14:42 Trach Collar 85 02/03/24 14:06 02/03/24 14:01 02/03/24 14:00 02/03/24 13:00 02/03/24 12:51 02/03/24 12:00 02/03/24 12:00 100 02/03/24 11:00 02/03/24 11:00 02/03/24 11:00 02/03/24 10:49 02/03/24 10:48 02/03/24 10:03 02/03/24 10:00 02/03/24 09:57 02/03/24 09:00 02/03/24 09:00 02/03/24 08:00 02/03/24 08:00 02/03/24 08:00 02/03/24 08:00 02/03/24 08:00 40 02/03/24 07:09 02/03/24 07:00 02/03/24 06:57 02/03/24 06:06 40 02/03/24 06:00 02/03/24 05:57 40 PG Care Time/CCT Total # of Minutes Spent Total Time Spent with Patient: Total time spent is greater than 50% in coordination of care (as documented) at patient's floor/unit and/or counseling patient: Coding Level of Care Code 46048 SUB INP/OBS CARE 3/50MIN Diagnoses Acute on chronic HFrEF (heart failure with reduced ejection fraction) I50.23
[2024-02-03] MEDS: MAGNESIUM OXIDE 400 MG TAB GT SCH (20:08)
[2024-02-03] MEDS: POTASSIUM CHLORIDE PWD 20 MEQ PACK GT SCH (20:09)
[2024-02-04 03:47] LABS: Basophils # (auto) 0.09 K/uL (0.00-0.20); Basophils % (auto) 0.9 %; Eosinophils # (auto) 0.11 K/uL (0.00-0.50); Eosinophils % (auto) 1.1 %; Hematocrit (blood only) 32.2 % (42.0-52.0); Immature Granulocytes % (auto) 2.1 %; Lymphocytes # (auto) 0.86 K/uL (1.20-3.40); Mean Corpuscular Hemoglobin 34.4 pg (25.0-34.0); Mean Corpuscular Hgb Conc 34.2 g/dL (32.0-36.0); Mean Corpuscular Volume 100.6 fL (80.0-100.0); Mean Platelet Volume 9.5 fL (9.4-12.4); Monocytes % (auto) 12.5 %; Neutrophils # (auto) 7.14 K/uL (1.40-6.50); Neutrophils % (auto) 74.4 %; Platelet Count 445 K/uL (130-400); RDW Coefficient of Variation 13.4 % (11.5-14.5); RDW Standard Deviation 49.5 fL (36.4-46.3)
[2024-02-04 04:05] LABS: BUN Creatinine Ratio 26.1 (10-20); Calcium 8.1 mg/dl (8.6-10.3); Creatinine Clr Calc Pharmacy 145.8 ml/min; Est GFR (African American) 143.3 ml/min; Est GFR (Non-African American) 123.6 ml/min; Magnesium 1.8 mg/dl (1.7-2.4); Phosphorus 3.8 mg/dl (2.5-4.9); Potassium 4.1 mmol/L (3.5-5.1)
[2024-02-04] MEDS: MAGNESIUM SULFATE / D5W 1 GM/100 ML BAG IV SCH (05:26)
[2024-02-04] MEDS: TOLVAPTAN 15 MG TABLET PO STA (09:21)
--- NOTE | 2024-02-04 10:09 | Critical Care Progress Note ---
Date of Service February 04, 2024 Assessment & Plan (1) Aspiration pneumonia: (2) Cardiogenic shock: (3) Respiratory failure: (4) COPD with emphysema: (5) Bilirubinemia: (6) Transaminitis: (7) Atrial flutter with rapid ventricular response: (8) Acute on chronic HFrEF (heart failure with reduced ejection fraction): (9) Non-ischemic cardiomyopathy: Plan Plan Impression: 58-year-old male status postcardiac arrest with history of heart failure and atrial fibrillation medical noncompliance. He was extubated but then required noninvasive positive pressure ventilation and eventually reintubation and subsequent percutaneous dilatation of tracheostomy placement. 24-hour events: Periodic episodes of dyspnea with fever. Recommendations: Neuro: Off sedation. Analgesia appears adequate. Continue physical therapy and Occupational Therapy for rehab. No obvious sequelae from the patient's prior arrest. Cardiac: Patient is status post cardiac arrest and atrial fibrillation. Now on lower dose of amiodarone. Cardiology plans on doing left heart cath today. EF still's profoundly reduced to 15%. Goal-directed therapy per cardiology as blood pressure allows. Patient on amiodarone and digoxin for rate control and rhythm control of underlying A-fib. Repeat digoxin level on Wednesday. Patient also on therapeutic Lovenox. Respiratory: Patient with unclear respiratory picture. Possible combined aspiration pneumonitis and pulmonary edema. Also less likely would be amiodarone induced toxicity. Low threshold to repeat a CT chest. Pro-Dick has been unremarkable. Antibiotics have been reinitiated as of . Respiratory viral panel 01/31/2024 was negative. Continue trach collar trials as able and Passy-[place] valve as able. Pressure support at night. GI: Currently on tube feeding and tolerating reasonably well. Continue PPI RENAL/LYTES: Hyponatremia improving with tolvaptan. Appreciate nephrology input. Defer additional doses to nephrology. : Burk catheter in place for tracking intake and output. ENDO: Glycemic control per protocol HEME/ONC: No current issues ID: Cultures negative thus far. Prophylaxis VTE: Lovenox, 60 mg, subQ, q12hrs GI: Pantoprazole Lines: peripheral lines x 3 Diet: Full strength enteral tube feeds Transition out of ICU once able to tolerate continuous Passy-[place] valve. Admission and Anticipated Discharge Date Admission Date: January 20, 2024 Subjective Patient seen and examined. He remained stable. He does have some shortness of breath with minimal activity. He has been n.p.o. and is going to go for left heart cath later today. He denies any other major complaints. Passy-[place] valve in place. He is able to speak. Review of Systems Review of Systems: All systems reviewed & are unremarkable except as noted in HPI & below Physical Exam Constitutional: well developed, well nourished, cooperative and + mechanically ventilated; no acute distress Neck: Trach site clean dry and intact Respiratory: no respiratory distress, no labored breathing and not tachypneic Auscultation: + diminished lung sounds and + rhonchi; no crackles and no wheezes Cardiovascular: RRR, no murmur, no edema Gastrointestinal (Abdomen): normal bowel sounds, soft, nontender, no hepatosplenomegaly Neurologic: No focal deficit Results & Data Results & Data Vital Signs (Past 12 Hours) Vital Signs Temp Pulse Resp BP Pulse Ox O2 Del Method O2 Flow Rate 02/04/24 09:00 130/70 02/04/24 08:54 36.7 C 79 96 02/04/24 08:06 36.8 C 75 98 02/04/24 08:00 135/71 02/04/24 07:40 02/04/24 07:40 Trach Collar 02/04/24 07:33 37.2 C 78 96 02/04/24 07:23 76 21 94 02/04/24 06:54 37.3 C 70 20 93 02/04/24 06:49 73 02/04/24 05:00 37.2 C 78 22 103/58 L 97 CPAP, Other 02/04/24 04:00 36.9 C 74 22 103/55 L 97 CPAP, Other 02/04/24 03:47 02/04/24 03:00 37.6 C H 70 21 114/61 27 L CPAP, Other 02/04/24 02:48 72 22 97 02/04/24 02:00 37.7 C H 68 21 103/54 L 97 CPAP, Other 02/04/24 01:00 37.6 C H 70 22 95/54 L 97 CPAP, Other 02/04/24 00:15 37.5 C 77 24 113/64 98 CPAP, Other 02/04/24 00:00 77 30 H 98 02/04/24 00:00 02/04/24 00:00 82 02/03/24 23:00 37.6 C H 80 24 127/74 95 Trach Collar 8 FiO2 02/04/24 09:00 02/04/24 08:54 02/04/24 08:06 02/04/24 08:00 02/04/24 07:40 35 02/04/24 07:40 02/04/24 07:33 02/04/24 07:23 35 02/04/24 06:54 02/04/24 06:49 02/04/24 05:00 35 02/04/24 04:00 35 02/04/24 03:47 35 02/04/24 03:00 35 02/04/24 02:48 35 02/04/24 02:00 35 02/04/24 01:00 35 02/04/24 00:15 35 02/04/24 00:00 35 02/04/24 00:00 35 02/04/24 00:00 02/03/24 23:00 30 Coding Level of Care Code 70756 SUB INP/OBS CARE 2/35MIN Diagnoses Aspiration pneumonia J69.0 Cardiogenic shock R57.0 Respiratory failure J96.90 COPD with emphysema J43.9 Bilirubinemia E80.6 Transaminitis R74.01 Atrial flutter with rapid ventricular response I48.92 Acute on chronic HFrEF (heart failure with reduced ejection fraction) I50.23 Non-ischemic cardiomyopathy I42.8
--- NOTE | 2024-02-04 10:32 | Nephrology Progress Note ---
Date of Service February 04, 2024 Assessment & Plan (1) Hyponatremia: (2) Cardiogenic shock: (3) Atrial fibrillation with rapid ventricular response: (4) Non-ischemic cardiomyopathy: (5) Acute systolic congestive heart failure, NYHA class 4: Plan 58 yo male with history of A-fib with RVR, hypertension nonischemic cardiomyopathy admitted to hospital with A-fib with RVR, and acute decompensated CHF and witnessed cardiac arrest in the ER after ran out of medication for more than 2 months. Extubated and currently has trach collar. Acute hyponatremia with history of mild chronic hyponatremia serum sodium around 132-134, on admission sodium was 131 which has slowly declined and lately sodium staying around 124 to 125. Urine osmolality elevated at 561. EF dropped further to 15 to 20%. Hyponatremia most likely secondary to high ADH state in the setting of severe cardiomyopathy, CHF and hypotension. Blood pressure improved and staying stable. Volume status acceptable, net negative. Na again slightly dropped to 129. -- Tolvaptan 15 mg x 1 dose today -- continue on Lasix 40 mg daily, aim for net negative, monitor intake and output. Will sign off, please contact if further assistance needed. Thank you for the consult. Admission and Anticipated Discharge Date Admission Date: January 20, 2024 Anita Casanova was seen in ICU this morning. Was awake, alert, not in any distress. Denied any concern. On 2 L nasal cannula oxygen. Sodium dropped to 129 again, other electrolyte acceptable. Blood pressure fair. Net negative. Waiting for cardiac cath this afternoon. Review of Systems Review of Systems: Detailed review of system was unremarkable except mentioned above. Physical Exam Constitutional: WD/WN, vitals as above + ill appearing Eyes: + anicteric sclerae Respiratory: no respiratory distress Auscultation: + crackles Cardiovascular: Heart Sounds: normal S1 and normal S2 Extremities: no edema Musculoskeletal: Extremities: extremities normal to inspection Neurologic: no focal motor deficits Psychiatric: Orientation: alert and cooperative Results & Data Vital Signs (Past 12 Hours) Vital Signs Temp Pulse Resp BP Pulse Ox O2 Del Method O2 Flow Rate 02/04/24 09:00 130/70 02/04/24 08:54 36.7 C 79 96 02/04/24 08:06 36.8 C 75 98 02/04/24 08:00 135/71 02/04/24 07:40 02/04/24 07:40 Trach Collar 02/04/24 07:33 37.2 C 78 96 02/04/24 07:23 76 21 94 02/04/24 06:54 37.3 C 70 20 93 02/04/24 06:49 73 02/04/24 05:00 37.2 C 78 22 103/58 L 97 CPAP, Other 02/04/24 04:00 36.9 C 74 22 103/55 L 97 CPAP, Other 02/04/24 03:47 02/04/24 03:00 37.6 C H 70 21 114/61 27 L CPAP, Other 02/04/24 02:48 72 22 97 02/04/24 02:00 37.7 C H 68 21 103/54 L 97 CPAP, Other 02/04/24 01:00 37.6 C H 70 22 95/54 L 97 CPAP, Other 02/04/24 00:15 37.5 C 77 24 113/64 98 CPAP, Other 02/04/24 00:00 77 30 H 98 02/04/24 00:00 02/04/24 00:00 82 02/03/24 23:00 37.6 C H 80 24 127/74 95 Trach Collar 8 FiO2 02/04/24 09:00 02/04/24 08:54 02/04/24 08:06 02/04/24 08:00 02/04/24 07:40 35 02/04/24 07:40 02/04/24 07:33 02/04/24 07:23 35 02/04/24 06:54 02/04/24 06:49 02/04/24 05:00 35 02/04/24 04:00 35 02/04/24 03:47 35 02/04/24 03:00 35 02/04/24 02:48 35 02/04/24 02:00 35 02/04/24 01:00 35 02/04/24 00:15 35 02/04/24 00:00 35 02/04/24 00:00 35 02/04/24 00:00 02/03/24 23:00 30 PG Care Time/CCT Total # of Minutes Spent Total Time Spent with Patient: Total time spent is greater than 50% in coordination of care (as documented) at patient's floor/unit and/or counseling patient: Coding Level of Care Code 99359 SUB INP/OBS CARE 235MIN Diagnoses Hyponatremia E87.1 Cardiogenic shock R57.0 Atrial fibrillation with rapid ventricular response I48.91 Non-ischemic cardiomyopathy I42.8 Acute systolic congestive heart failure, NYHA class 4 I50.21
--- NOTE | 2024-02-04 12:17 | Hospitalist Progress Note ---
Date of Service February 04, 2024 Assessment & Plan (1) Respiratory failure: Plan: Patient was admitted to the hospital and found to be in respiratory failure He required intubation and ventilation, was extubated, However failed weaning trial Reintubation 01/25/2024. 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 (2) Atrial fibrillation with rapid ventricular response: Plan: Patient went into A-fib with RVR Started on Cardizem, Amiodarone and digoxin and metoprolol Currently in sinus rhythm Now on Lovenox Cardiology on board, appreciate recs (3) Hyponatremia: Plan: Likely driven by ADH on account of CHF Nephrology on board has been started on Tolvaptan Continue Lasix Sodium level Initially improved, but dropped again today Per nephrology, will give another dose of tolvaptan (4) Acute on chronic HFrEF (heart failure with reduced ejection fraction): Plan: ECHO showed EF15-20% with severe dyskinesia Continue Lasix Monitor I/O, daily weight Plan is for possible cardiac cath today (5) Aspiration pneumonia: Plan: CT scan of the chest showed evidence of likely aspiration pneumonia currently on Zosyn (6) Nutrition impaired due to limited access to nutrition related supplies: Plan: Continue tube feed Nutritional consult (7) History of alcohol abuse: Plan: unclear of last drink, no sign of withdrawal on thiamine also tobacco abuse (8) Physical deconditioning: Plan: Continue physical therapy (9) Low grade fever: Plan: per the RN, the rectal probe showed a slightly higher temp than the oral one, which is wnl Has completed a course of antibiotics anyway (10) Non-ischemic cardiomyopathy: Plan Continue to monitor in the ICU, SW sent out referrals for Nursing Homes with Trach/vent capabilities Admission and Anticipated Discharge Date Admission Date: January 20, 2024 Subjective Patient seen and examined, comfortable on trach Collar, said there is plan for 2D echo and probably cardiac cath today Review of Systems Review of Systems: All systems reviewed are negative, apart from the ones contained in the history. Physical Exam 2 Physical Exam: The patient is awake, alert and oriented 3, trach in situ HEENT--PERRL, EOMI, mucous membranes and oropharynx mildly dry Neck--trach in situ Heart--normal S1 and S2. No murmurs, rubs or gallops. Lungs--clear bilaterally, no respiratory distress, no accessory muscle use. Abdomen--normal bowel sounds and soft. Extremities--no cyanosis or clubbing. No edema. Dermatologic--normal skin turgor, normal color, no abnormal lymph nodes, no rash. Neurologic--cranial nerves II through XII grossly intact. Rheumatologic--normal range of motion. Psychiatric--normal affect. Results & Data Results & Data Vital Signs (Past 12 Hours) Vital Signs Temp Pulse Resp BP Pulse Ox O2 Del Method FiO2 02/04/24 10:49 73 02/04/24 09:00 130/70 02/04/24 08:54 98.1 F 79 96 02/04/24 08:06 98.2 F 75 98 02/04/24 08:00 135/71 02/04/24 07:40 35 02/04/24 07:40 Trach Collar 02/04/24 07:33 99.0 F 78 96 02/04/24 07:23 76 21 94 35 02/04/24 06:54 99.1 F 70 20 93 02/04/24 06:49 73 02/04/24 05:00 99.0 F 78 22 103/58 L 97 CPAP, Other 35 02/04/24 04:00 98.4 F 74 22 103/55 L 97 CPAP, Other 35 02/04/24 03:47 35 02/04/24 03:00 99.7 F H 70 21 114/61 27 L CPAP, Other 35 02/04/24 02:48 72 22 97 35 02/04/24 02:00 99.9 F H 68 21 103/54 L 97 CPAP, Other 35 02/04/24 01:00 99.7 F H 70 22 95/54 L 97 CPAP, Other 35 02/04/24 00:15 99.5 F 77 24 113/64 98 CPAP, Other 35 PG Care Time/CCT Total # of Minutes Spent Total Time Spent with Patient: Total time spent is greater than 50% in coordination of care (as documented) at patient's floor/unit and/or counseling patient: Coding Level of Care Code 83695 SUB INP/OBS CARE 2/35MIN Diagnoses Respiratory failure J96.90 Atrial fibrillation with rapid ventricular response I48.91 Hyponatremia E87.1 Acute on chronic HFrEF (heart failure with reduced ejection fraction) I50.23 Aspiration pneumonia J69.0 Nutrition impaired due to limited access to nutrition related supplies E63.9 History of alcohol abuse F10.11 Physical deconditioning R53.81 Low grade fever R50.9 Non-ischemic cardiomyopathy I42.8 Time Spent (min) 35
[2024-02-04] MEDS ORDERED: SODIUM BICARB 8.4% INJ 50 MEQ/50 ML SYR IV ONE (13:13)
[2024-02-04] MEDS ORDERED: SODIUM CHLORIDE 0.9% 10ML FLUSH IV ONE (13:13)
--- NOTE | 2024-02-04 13:58 | Pre Anesthesia Assessment ---
Date of Service February 04, 2024 Pre Sedation Assessment Vital Signs Temp Pulse Pulse Resp BP BP Pulse Ox 02/04/24 13:45 75 24 97/70 L 97 02/04/24 12:06 99.3 F 74 0 L 95 02/04/24 12:00 125/68 02/04/24 11:57 99.3 F 72 27 H 95 02/04/24 11:00 99.0 F 71 97 02/04/24 11:00 124/71 02/04/24 10:49 73 02/04/24 10:18 98.8 F 73 97 02/04/24 10:00 122/72 02/04/24 10:00 122/72 02/04/24 09:57 98.6 F 74 97 02/04/24 09:06 98.4 F 77 98 02/04/24 09:00 130/70 02/04/24 08:54 98.1 F 79 96 02/04/24 08:06 98.2 F 75 98 02/04/24 08:00 135/71 02/04/24 07:40 02/04/24 07:40 02/04/24 07:33 99.0 F 78 96 02/04/24 07:23 76 21 94 02/04/24 06:54 99.1 F 70 20 93 02/04/24 06:49 73 02/04/24 05:00 99.0 F 78 22 103/58 L 97 02/04/24 04:00 98.4 F 74 22 103/55 L 97 02/04/24 03:47 02/04/24 03:00 99.7 F H 70 21 114/61 27 L 02/04/24 02:48 72 22 97 02/04/24 02:00 99.9 F H 68 21 103/54 L 97 02/04/24 01:00 99.7 F H 70 22 95/54 L 97 02/04/24 00:15 99.5 F 77 24 113/64 98 02/04/24 00:00 77 30 H 98 02/04/24 00:00 02/04/24 00:00 82 02/03/24 23:00 99.7 F H 80 24 127/74 95 02/03/24 22:00 99.9 F H 78 24 117/67 96 02/03/24 20:00 02/03/24 20:00 100.0 F H 68 20 121/65 98 02/03/24 19:15 77 02/03/24 19:10 100.0 F H 76 25 H 120/62 98 02/03/24 18:12 100.0 F H 73 25 H 99 02/03/24 16:03 100.2 F H 85 29 H 100 02/03/24 16:00 104/58 L 02/03/24 15:54 100.9 F H 85 26 H 100 02/03/24 15:49 18 02/03/24 15:00 100.9 F H 87 31 H 93 02/03/24 15:00 127/61 02/03/24 14:42 20 02/03/24 14:06 101.7 F H 89 32 H 96 02/03/24 14:01 136/72 02/03/24 14:00 101.7 F H 90 23 95 Pulse Ox O2 Del Method O2 Del Method O2 Flow Rate O2 Flow Rate FiO2 02/04/24 13:45 Mechanical Vent 35 02/04/24 12:06 02/04/24 12:00 02/04/24 11:57 Nasal Cannula 2 02/04/24 11:00 02/04/24 11:00 02/04/24 10:49 02/04/24 10:18 02/04/24 10:00 02/04/24 10:00 02/04/24 09:57 02/04/24 09:06 02/04/24 09:00 02/04/24 08:54 02/04/24 08:06 02/04/24 08:00 02/04/24 07:40 35 02/04/24 07:40 Trach Collar 02/04/24 07:33 02/04/24 07:23 35 02/04/24 06:54 02/04/24 06:49 02/04/24 05:00 CPAP, Other 35 02/04/24 04:00 CPAP, Other 35 02/04/24 03:47 35 02/04/24 03:00 CPAP, Other 35 02/04/24 02:48 35 02/04/24 02:00 CPAP, Other 35 02/04/24 01:00 CPAP, Other 35 02/04/24 00:15 CPAP, Other 35 02/04/24 00:00 35 02/04/24 00:00 35 02/04/24 00:00 02/03/24 23:00 Trach Collar 8 30 02/03/24 22:00 Trach Collar 8 30 02/03/24 20:00 Trach Collar 8 30 02/03/24 20:00 Trach Collar 30 02/03/24 19:15 02/03/24 19:10 Nasal Cannula 3 02/03/24 18:12 02/03/24 16:03 02/03/24 16:00 02/03/24 15:54 02/03/24 15:49 99 Nasal Cannula 6 02/03/24 15:00 02/03/24 15:00 02/03/24 14:42 100 Trach Collar 85 02/03/24 14:06 02/03/24 14:01 02/03/24 14:00 Cardiovascular + regular rhythm Respiratory + respiratory effort normal Pre-Sedation Airway Assessment Smoking Status: Current every day smoker Oral Cavity: + Dental Abnormalities ASA: ASA4 Procedure Planning Contraindications for Sedation: none Current Medications Reviewed: Yes Notes The planned sedation has been discussed with the patient. Informed Consent was obtained. I have identified the patient, determined the appropriateness of sedation and have assessed the patient immediately prior to the procedure. All medicine(s) and interventions are by my order.
[2024-02-04] MEDS: NITROGLYCERIN/D5W 100MCG/ML 20ML SYR ONE (15:04)
[2024-02-04] MEDS: niCARdipine HCL INJ 2.5 MG/ML 10 ML AMP ONE (15:04)
[2024-02-04] MEDS: OPTIRAY 350 ONE (15:17)
[2024-02-04] MEDS: HEPARIN (PORCINE) 1000 UNIT/ML 10 ML (CATH LAB USE ONLY) ONE (15:18)
[2024-02-04] MEDS: MIDAZOLAM HCL 1 MG/ML 2ML VIAL ONE (15:18)
[2024-02-04] MEDS: fentaNYL citrate PF 100 MCG/2 ML VIAL ONE (15:18)
--- NOTE | 2024-02-04 15:18 | Post Anesthesia Assessment ---
Date of Service February 04, 2024 Post Sedation Assessment Vital Signs Temp Pulse Pulse Resp BP BP Pulse Ox 02/04/24 13:45 75 24 97/70 L 97 02/04/24 12:06 99.3 F 74 0 L 95 02/04/24 12:00 125/68 02/04/24 11:57 99.3 F 72 27 H 95 02/04/24 11:00 99.0 F 71 97 02/04/24 11:00 124/71 02/04/24 10:49 73 02/04/24 10:18 98.8 F 73 97 02/04/24 10:00 122/72 02/04/24 10:00 122/72 02/04/24 09:57 98.6 F 74 97 02/04/24 09:06 98.4 F 77 98 02/04/24 09:00 130/70 02/04/24 08:54 98.1 F 79 96 02/04/24 08:06 98.2 F 75 98 02/04/24 08:00 135/71 02/04/24 07:40 02/04/24 07:40 02/04/24 07:33 99.0 F 78 96 02/04/24 07:23 76 21 94 02/04/24 06:54 99.1 F 70 20 93 02/04/24 06:49 73 02/04/24 05:00 99.0 F 78 22 103/58 L 97 02/04/24 04:00 98.4 F 74 22 103/55 L 97 02/04/24 03:47 02/04/24 03:00 99.7 F H 70 21 114/61 27 L 02/04/24 02:48 72 22 97 02/04/24 02:00 99.9 F H 68 21 103/54 L 97 02/04/24 01:00 99.7 F H 70 22 95/54 L 97 02/04/24 00:15 99.5 F 77 24 113/64 98 02/04/24 00:00 77 30 H 98 02/04/24 00:00 02/04/24 00:00 82 02/03/24 23:00 99.7 F H 80 24 127/74 95 02/03/24 22:00 99.9 F H 78 24 117/67 96 02/03/24 20:00 02/03/24 20:00 100.0 F H 68 20 121/65 98 02/03/24 19:15 77 02/03/24 19:10 100.0 F H 76 25 H 120/62 98 02/03/24 18:12 100.0 F H 73 25 H 99 02/03/24 16:03 100.2 F H 85 29 H 100 02/03/24 16:00 104/58 L 02/03/24 15:54 100.9 F H 85 26 H 100 02/03/24 15:49 18 Pulse Ox O2 Del Method O2 Del Method O2 Flow Rate O2 Flow Rate FiO2 02/04/24 13:45 Mechanical Vent 35 02/04/24 12:06 02/04/24 12:00 02/04/24 11:57 Nasal Cannula 2 02/04/24 11:00 02/04/24 11:00 02/04/24 10:49 02/04/24 10:18 02/04/24 10:00 02/04/24 10:00 02/04/24 09:57 02/04/24 09:06 02/04/24 09:00 02/04/24 08:54 02/04/24 08:06 02/04/24 08:00 02/04/24 07:40 35 02/04/24 07:40 Trach Collar 02/04/24 07:33 02/04/24 07:23 35 02/04/24 06:54 02/04/24 06:49 02/04/24 05:00 CPAP, Other 35 02/04/24 04:00 CPAP, Other 35 02/04/24 03:47 35 02/04/24 03:00 CPAP, Other 35 02/04/24 02:48 35 02/04/24 02:00 CPAP, Other 35 02/04/24 01:00 CPAP, Other 35 02/04/24 00:15 CPAP, Other 35 02/04/24 00:00 35 02/04/24 00:00 35 02/04/24 00:00 02/03/24 23:00 Trach Collar 8 30 02/03/24 22:00 Trach Collar 8 30 02/03/24 20:00 Trach Collar 8 30 02/03/24 20:00 Trach Collar 30 02/03/24 19:15 02/03/24 19:10 Nasal Cannula 3 02/03/24 18:12 02/03/24 16:03 02/03/24 16:00 02/03/24 15:54 02/03/24 15:49 99 Nasal Cannula 6 Recovery Score Activity: Moves 4 extremities Respiration: Deep Breath/Cough Circulation: +/-20% PreAnes Value Consciousness: Fully Awake Oxygen Saturation: O2 needed for >90% Discharge Sedation Level of Care: Fast Track Phase II Post Sedation Plan On clinical assessment, the patient appears to have tolerated the sedation without complications. Patient is recovering as anticipated. Patient will continue to be monitored by nursing and may be discharged when sedation discharge criteria are met per below protocol. Upon Completions of procedure up to 15 minutes continue every 5 minute vital signs and the P.A.R. score; then discharge to a Phase I or Fast Track to Phase II per the following guidelines: * Discharge Patient to appropriate Phase II area if PAR is 8 or greater or return to pre- procedure baseline. The post - procedure orders will be as directed. * If PAR score is less than 8 or not return to pre-procedure baseline then patient will follow Phase I monitoring till PAR is reached for Phase II. The Phase I may be done in procedure room or may call to secure a Phase I area. * If naloxone or flumazenil are used for reversal, hold in Phase I for continued monitoring from when last reversal dose was given for a minimum of 6 0 minutes or longer pending the nurse and/or physician discretion of patient condition before discharge to Phase II. Please call the Sedation Physician to re-evaluate and complete post-note for discharge to Phase II area. Do NOT discharge from procedure sedation or Phase 1 until post- sedation evaluation note is complete by procedure /sedation MD Sedation Discharge Instructions to be given to the patient at discharge to home.
--- NOTE | 2024-02-04 15:28 | Cardiac Catheterization ---
[facility] Data: [place] [facility] Cardiac Status Clinical evaluation leading to the procedure CAD Presenation: Sx unlikely to be ischemic Diagnostic Physicians Name: Qamar Martinez MD Closure Device Recommendations: Medical Therapy and/or Counseling Cardiac Cath Procedure Full Procedure Date February 04, 2024 Pre-Procedure Diagnosis Pre-Procedure Diagnosis: Cardiomyopathy AUC Score AUC Score: 7 Post-Procedure Diagnosis Post-Procedure Diagnosis: Normal Coronary Arteries Procedure(s) Performed Procedure(s) Performed: Coronary Angiography, Left Heart Cath, Right Heart Cath and Ultrasound Guided Vascular Access Conformal Pad Former Qamar Martinez MD Surgical Lead(s) Hali Estimated Blood Loss Estimated Blood Loss: 15 Medication(s) Medication(s): Fentanyl, Heparin, Lidocaine 1%, Nicardipine, Nitroglycerin and Versed Summary of Findings Indication: Severe LV dysfunction, cardiomyopathy Access: 6 Fr left ulnar artery under ultrasound guidance, 6 Fr right common femoral vein under ultrasound guidance Catheters: JL 3.5, JR4, 6 Fr [place] Findings: LM -Short, normal caliber, no significant disease LAD -medium caliber, extends to apex, no significant disease. Medium diagonal without significant disease. Circumflex -medium caliber, no significant disease. Gives off high OM1 without significant disease. RCA -dominant, medium caliber, no significant disease RA 5 RV 25/6 PA 26/12 (18) PAWP 8 LV 13 PaSat 63% AoSat 96% Enmanuel CO/CI 5.0/3.0 Thermo CO/CI 3.6/2.1 Arterial Closure: TR band, CFV Mynx Summary: 1. Angiographically normal coronary arteries 2. Normal left and right-sided filling pressures 3. Normal pulmonary artery pressures 4. Preserved cardiac output Recommendations: Continue maintenance diuretics and GDMT for NICM as BP allows. Hemodynamics Rest Ao:: 100/55/72 Final Ao: 121/ LV: 116/14 Recommendations Recommendations: Medical Therapy and/or Counseling Specimens Specimens: None Radiation Exposure (mGy) 296 Contrast (mls) 75 Anesthesia Moderate 2271-4239 Procedural Complication(s) None Disposition ICU I attest to the content of the Intraoperative Record and any orders documented therein. Any exceptions are noted below. Independent BankG Card Cath Procedure Codes Cardiac Catheterization Procedure 1: Cardiovascular Cath Procedures: 61752 Coronaries & LHC (+/-LV) & RHC Therapeutic Services & Ancillary Procedure 1: Cardiovascular Tx and Anc Procedures: 36114 IV Ultrasound (Coronary or Graft) Procedure 2: Cardiovascular Tx and Anc Procedures: 71015 IV Ultrasound Ea addl vessel Moderate Sedation Procedure 1: Sedation/Anesthesia: 32166 Mod Sedation by the same physician;Init15 Min Child Age 5 & Up Procedure 2: Sedation/Anesthesia: 39078 Mod Sedation by the same physician; Ea Justino [email or web address] Minutes PG Care Time/CCT Total # of Minutes Spent Total Time Spent with Patient: Total time spent is greater than 50% in coordination of care (as documented) at patient's floor/unit and/or counseling patient:
[2024-02-04 15:29] LABS: iSTAT Arterial Blood Gas HCO3 28 meg/L (19-24); iSTAT Arterial Blood Gas pCO2 41 mmHg (35-46); iSTAT Arterial Blood Gas pH 7.43 (7.35-7.45); iSTAT Arterial Blood Gas pO2 < 32 mmHg (80-95); iSTAT Carbon Dioxide 29 mmol/L (24-31); iSTAT Hematocrit 35 % (42-52); iSTAT Hemoglobin 11.9 g/dl (14.0-18.0); iSTAT Sodium 132 mmol/L (135-144)
--- NOTE | 2024-02-04 15:39 | Cardiology Progress Note ---
Date of Service February 04, 2024 Assessment & Plan (1) Acute on chronic HFrEF (heart failure with reduced ejection fraction): Plan: Nonischemic, EF 15-20%, severe global LV dysfunction 2. Persistent respiratory failure post trach 3. Prior PEA arrest/cardiogenic shock 4. A-fib with RVR--converted to NSR; on amio 5. Hyponatremia Remains hemodynamically electrically stable. Had normal left and right-sided filling pressures on cardiac cath today Cardiac output is preserved. No need for urgent referral to advanced heart failure. --Continue maintenance Lasix 40 mg daily -- continue rhythm control with amiodarone 200mg daily. -- continue current metoprolol, digoxin. -- Add back low dose valsartan as BP allows Will follow Admission and Anticipated Discharge Date Admission Date: January 20, 2024 Subjective Feeling well today. No new complaints. Breathing comfortably on trach collar Underwent cardiac cath today. Normal coronary arteries. Review of Systems Review of Systems: All systems reviewed & are unremarkable except as noted in HPI & below Physical Exam Physical Exam: General: comfortable, HEENT: Sclerae anicteric Lungs: Coarse, bilaterally but clear Cardiac: Regular, no murmurs Vascular: TR band in place Abdomen: Soft Extremities: warm, no significant edema Results & Data Vital Signs (Past 12 Hours) Vital Signs Temp Pulse Pulse Resp BP BP Pulse Ox 02/04/24 13:45 75 24 97/70 L 97 02/04/24 12:06 99.3 F 74 0 L 95 02/04/24 12:00 125/68 02/04/24 11:57 99.3 F 72 27 H 95 02/04/24 11:00 99.0 F 71 97 02/04/24 11:00 124/71 02/04/24 10:49 73 02/04/24 10:18 98.8 F 73 97 02/04/24 10:00 122/72 02/04/24 10:00 122/72 02/04/24 09:57 98.6 F 74 97 02/04/24 09:06 98.4 F 77 98 02/04/24 09:00 130/70 02/04/24 08:54 98.1 F 79 96 02/04/24 08:06 98.2 F 75 98 02/04/24 08:00 135/71 02/04/24 07:40 02/04/24 07:40 02/04/24 07:33 99.0 F 78 96 02/04/24 07:23 76 21 94 02/04/24 06:54 99.1 F 70 20 93 02/04/24 06:49 73 02/04/24 05:00 99.0 F 78 22 103/58 L 97 02/04/24 04:00 98.4 F 74 22 103/55 L 97 02/04/24 03:47 O2 Del Method O2 Flow Rate FiO2 02/04/24 13:45 Mechanical Vent 35 02/04/24 12:06 02/04/24 12:00 02/04/24 11:57 Nasal Cannula 2 02/04/24 11:00 02/04/24 11:00 02/04/24 10:49 02/04/24 10:18 02/04/24 10:00 02/04/24 10:00 02/04/24 09:57 02/04/24 09:06 02/04/24 09:00 02/04/24 08:54 02/04/24 08:06 02/04/24 08:00 02/04/24 07:40 35 02/04/24 07:40 Trach Collar 02/04/24 07:33 02/04/24 07:23 35 02/04/24 06:54 02/04/24 06:49 02/04/24 05:00 CPAP, Other 35 02/04/24 04:00 CPAP, Other 35 02/04/24 03:47 35 PG Care Time/CCT Total # of Minutes Spent Total Time Spent with Patient: Total time spent is greater than 50% in coordination of care (as documented) at patient's floor/unit and/or counseling patient: Coding Level of Care Code 91861 SUB INP/OBS CARE 2/35MIN Diagnoses Acute on chronic HFrEF (heart failure with reduced ejection fraction) I50.23
[2024-02-04 16:26] LABS: iSTAT Arterial Blood Gas HCO3 25 meg/L (19-24); iSTAT Arterial Blood Gas pCO2 35 mmHg (35-46); iSTAT Arterial Blood Gas pH 7.45 (7.35-7.45); iSTAT Arterial Blood Gas pO2 79 mmHg (80-95); iSTAT Carbon Dioxide 26 mmol/L (24-31); iSTAT Hematocrit 34 % (42-52); iSTAT Hemoglobin 11.6 g/dl (14.0-18.0); iSTAT Potassium 3.9 mmol/L (3.3-5.0); iSTAT Sodium 131 mmol/L (135-144)
[2024-02-04] MEDS: NUTREN LIQD 2.0 1,000 ML BAG NG SCH (20:15)
[2024-02-05 05:18] LABS: Basophils # (auto) 0.08 K/uL (0.00-0.20); Eosinophils % (auto) 1.2 %; Hematocrit (blood only) 33.8 % (42.0-52.0); Hemoglobin 11.7 g/dl (14.0-18.0); Immature Granulocytes # (auto) 0.13 K/uL (0.01-0.20); Immature Granulocytes % (auto) 1.6 %; Lymphocytes # (auto) 0.84 K/uL (1.20-3.40); Mean Corpuscular Hemoglobin 34.3 pg (25.0-34.0); Mean Corpuscular Hgb Conc 34.6 g/dL (32.0-36.0); Mean Corpuscular Volume 99.1 fL (80.0-100.0); Mean Platelet Volume 9.2 fL (9.4-12.4); Monocytes # (auto) 0.87 K/uL (0.11-0.59); Monocytes % (auto) 10.4 %; Neutrophils # (auto) 6.35 K/uL (1.40-6.50); Neutrophils % (auto) 75.8 %; Platelet Count 537 K/uL (130-400); RDW Coefficient of Variation 13.2 % (11.5-14.5); RDW Standard Deviation 48.4 fL (36.4-46.3); Red Blood Count 3.41 M/uL (4.70-6.10); White Blood Count 8.37 K/ul (4.8-10.8)
[2024-02-05 05:42] LABS: BUN Creatinine Ratio 32.6 (10-20); Calcium 8.3 mg/dl (8.6-10.3); Creatinine Clr Calc Pharmacy 145.7 ml/min; Est GFR (African American) 147.3 ml/min; Est GFR (Non-African American) 127.1 ml/min; Phosphorus 4.9 mg/dl (2.5-4.9); Potassium 4.1 mmol/L (3.5-5.1)
[2024-02-05] MEDS ORDERED: [UNRECOGNIZED DRUG - REMARK] SCH (08:00)
[2024-02-05] MEDS: [UNRECOGNIZED DRUG - REMARK] SCH (08:39)
--- NOTE | 2024-02-05 10:24 | Critical Care Progress Note ---
Date of Service February 05, 2024 Assessment & Plan (1) Aspiration pneumonia: (2) Cardiogenic shock: (3) Respiratory failure: (4) COPD with emphysema: (5) Bilirubinemia: (6) Transaminitis: (7) Atrial flutter with rapid ventricular response: (8) Acute on chronic HFrEF (heart failure with reduced ejection fraction): (9) Non-ischemic cardiomyopathy: Plan Plan Impression: 58-year-old male status postcardiac arrest with history of heart failure and atrial fibrillation medical noncompliance. He was extubated but then required noninvasive positive pressure ventilation and eventually reintubation and subsequent percutaneous dilatation of tracheostomy placement. 24-hour events: Afebrile. No significant complaints. Recommendations: Neuro: Off sedation. Analgesia appears adequate. Continue physical therapy and Occupational Therapy for rehab. No obvious sequelae from the patient's prior arrest. Cardiac: Patient is status post cardiac arrest and atrial fibrillation. Cardiogenic shock is resolved. Amiodarone 200 mg daily. Left heart cath from earlier this admission revealed clean coronaries. EF still's profoundly reduced to 15%. Goal-directed therapy per cardiology as blood pressure allows. Repeat digoxin level on Wednesday. Patient also on therapeutic Lovenox. Continue metoprolol per cardiology recommendations. I have added low-dose valsartan per the recommendations as well. Will defer additional medications to the cardiology team. Respiratory: Chest x-ray from 02/03/2024 with bilateral interstitial opacities. Patient currently requiring minimal oxygen support. Repeat chest x-ray in 1 to 2 days. Possible combined aspiration pneumonitis and pulmonary edema. Also less likely would be amiodarone induced toxicity. Low threshold to repeat a CT chest. Pro- Dick has been unremarkable. Zosyn been reinitiated as of 02/02/24. Continue for 7 days total. Respiratory viral panel 01/31/2024 was negative. Continue trach collar trials as able and Passy-Franny valve as able. Pressure support at night. GI: Currently on tube feeding and tolerating reasonably well. Continue PPI RENAL/LYTES: Hyponatremia improved. Status post tolvaptan earlier this admission. Appreciate nephrology input. Defer additional doses to nephrology. : No Burk catheter at this point. ENDO: Glycemic control per protocol HEME/ONC: No current issues. Therapeutic Lovenox for history of A-fib. ID: Patient afebrile over the last 12 hours. Continue Zosyn for total of 5 additional days. Prophylaxis VTE: Lovenox, 60 mg, subQ, q12hrs GI: Lansoprazole Lines: peripheral lines x 3 Diet: Full strength enteral tube feeds Transition out of ICU once able to tolerate continuous Passy-Franny valve. Case management working on placement. Admission and Anticipated Discharge Date Admission Date: January 20, 2024 Subjective Patient remained stable at this time. Currently on Passy-Franny valve. No major events overnight. He has remained afebrile overnight. Review of Systems Review of Systems: All systems reviewed & are unremarkable except as noted in HPI & below Physical Exam Constitutional: well developed, well nourished and cooperative; no acute distress Neck: Trach site clean dry and intact Respiratory: no respiratory distress, no labored breathing and not tachypneic Auscultation: + diminished lung sounds and + rhonchi; no crackles and no wheezes Cardiovascular: RRR, no murmur, no edema Gastrointestinal (Abdomen): normal bowel sounds, soft, nontender, no hepatosplenomegaly Neurologic: No focal deficit Results & Data Results & Data Vital Signs (Past 12 Hours) Vital Signs Temp Pulse Resp BP Pulse Ox FiO2 02/05/24 08:01 136/73 02/05/24 08:01 136/73 02/05/24 08:00 37.4 C 82 23 90 02/05/24 07:09 37.4 C 82 19 94 02/05/24 07:00 137/75 02/05/24 07:00 137/75 02/05/24 06:57 37.5 C 84 28 H 97 02/05/24 06:51 37.5 C 84 30 H 97 02/05/24 06:03 37.3 C 79 23 120/60 97 02/05/24 05:51 37.5 C 82 9 L 98 02/05/24 05:03 37.4 C 77 19 99/56 L 97 02/05/24 04:48 37.4 C 74 19 97 02/05/24 04:00 36.7 C 78 30 H 130/82 97 02/05/24 04:00 35 02/05/24 03:52 78 20 96 35 02/05/24 03:03 37.4 C 79 22 121/74 98 02/05/24 02:54 37.4 C 77 24 97 02/05/24 02:12 37.4 C 76 23 97 02/05/24 02:00 133/78 02/05/24 01:57 37.5 C 75 24 98 02/05/24 01:15 37.4 C 74 28 H 97 02/05/24 00:00 37.3 C 80 23 96 02/05/24 00:00 35 02/04/24 23:21 78 23 96 35 02/04/24 23:06 37.2 C 81 22 126/71 98 02/04/24 23:03 78 02/04/24 22:48 37.2 C 78 21 97 Coding Level of Care Code 68650 SUB INP/OBS CARE 2/35MIN Diagnoses Aspiration pneumonia J69.0 Cardiogenic shock R57.0 Respiratory failure J96.90 COPD with emphysema J43.9 Bilirubinemia E80.6 Transaminitis R74.01 Atrial flutter with rapid ventricular response I48.92 Acute on chronic HFrEF (heart failure with reduced ejection fraction) I50.23 Non-ischemic cardiomyopathy I42.8
--- NOTE | 2024-02-05 11:17 | Hospitalist Progress Note ---
Date of Service February 05, 2024 Assessment & Plan (1) Respiratory failure: Plan: Patient was admitted to the hospital and found to be in respiratory failure He required intubation and ventilation, was extubated, However failed weaning trial Reintubation 01/25/2024. tracheostomy placed 01/26/24 now with trach collar and Passy Miur valve, PRN Morphine for air hunger Continue trach care Appreciate pulmonology recommendations and dry heat cabinet attendant (2) Atrial fibrillation with rapid ventricular response: Plan: Patient went into A-fib with RVR Started on Cardizem, Amiodarone and digoxin and metoprolol Currently in sinus rhythm Now on Lovenox Cardiology on board, appreciate recs (3) Hyponatremia: Plan: Likely driven by ADH on account of CHF Nephrology on board has been started on Tolvaptan Continue Lasix (4) Acute on chronic HFrEF (heart failure with reduced ejection fraction): Plan: ECHO showed EF15-20% with severe dyskinesia Cardiac cath done 02/03 showed clean coronaries Continue Lasix Monitor I/O, daily weight (5) Aspiration pneumonia: Plan: CT scan of the chest showed evidence of likely aspiration pneumonia currently on Zosyn (6) Nutrition impaired due to limited access to nutrition related supplies: Plan: Continue NG tube feed and soft diet Nutritional consult (7) Physical deconditioning: Plan: Continue physical therapy (8) Low grade fever: (9) Non-ischemic cardiomyopathy: (10) History of alcohol abuse: Plan: unclear of last drink, no sign of withdrawal on thiamine also tobacco abuse Plan Continue to monitor in the ICU, SW sent out referrals for Nursing Homes with Trach/vent capabilities, peer to peer today Admission and Anticipated Discharge Date Admission Date: January 20, 2024 Subjective patient seen and examined, on passir miur, no new complaints. His insurance denied his LTAC request, will have a peer to peer later today Review of Systems Review of Systems: All systems reviewed are negative, apart from the ones contained in the history. Physical Exam Physical Exam: The patient is awake, alert and oriented 3, trach in situ HEENT--PERRL, EOMI, mucous membranes and oropharynx mildly dry Neck--trach in situ Heart--normal S1 and S2. No murmurs, rubs or gallops. Lungs--clear bilaterally, no respiratory distress, no accessory muscle use. Abdomen--normal bowel sounds and soft. Extremities--no cyanosis or clubbing. No edema. Dermatologic--normal skin turgor, normal color, no abnormal lymph nodes, no rash. Neurologic--cranial nerves II through XII grossly intact. Rheumatologic--normal range of motion. Psychiatric--normal affect. Results & Data Results & Data Vital Signs (Past 12 Hours) Vital Signs Temp Pulse Resp BP Pulse Ox FiO2 02/05/24 10:49 72 02/05/24 08:01 136/73 02/05/24 08:01 136/73 02/05/24 08:00 99.3 F 82 23 90 02/05/24 07:09 99.3 F 82 19 94 02/05/24 07:00 137/75 02/05/24 07:00 137/75 02/05/24 06:57 99.5 F 84 28 H 97 02/05/24 06:51 99.5 F 84 30 H 97 02/05/24 06:03 99.1 F 79 23 120/60 97 02/05/24 05:51 99.5 F 82 9 L 98 02/05/24 05:03 99.3 F 77 19 99/56 L 97 02/05/24 04:48 99.3 F 74 19 97 02/05/24 04:00 98.1 F 78 30 H 130/82 97 02/05/24 04:00 35 02/05/24 03:52 78 20 96 35 02/05/24 03:03 99.3 F 79 22 121/74 98 02/05/24 02:54 99.3 F 77 24 97 02/05/24 02:12 99.3 F 76 23 97 02/05/24 02:00 133/78 02/05/24 01:57 99.5 F 75 24 98 02/05/24 01:15 99.3 F 74 28 H 97 02/05/24 00:00 99.1 F 80 23 96 02/05/24 00:00 35 02/04/24 23:21 78 23 96 35 PG Care Time/CCT Total # of Minutes Spent Total Time Spent with Patient: Total time spent is greater than 50% in coordination of care (as documented) at patient's floor/unit and/or counseling patient: Coding Level of Care Code 78699 SUB INP/OBS CARE 2/35MIN Diagnoses Respiratory failure J96.90 Atrial fibrillation with rapid ventricular response I48.91 Hyponatremia E87.1 Acute on chronic HFrEF (heart failure with reduced ejection fraction) I50.23 Aspiration pneumonia J69.0 Nutrition impaired due to limited access to nutrition related supplies E63.9 Physical deconditioning R53.81 Low grade fever R50.9 Non-ischemic cardiomyopathy I42.8 History of alcohol abuse F10.11 Time Spent (min) 35
[2024-02-05] MEDS: VALSARTAN 80 MG TAB PO SCH (12:20)
--- NOTE | 2024-02-05 13:48 | Cardiology Progress Note ---
Date of Service February 05, 2024 Assessment & Plan (1) Acute on chronic HFrEF (heart failure with reduced ejection fraction): Plan: Nonischemic, EF 15-20%, severe global LV dysfunction 2. Persistent respiratory failure post trach 3. Prior PEA arrest/cardiogenic shock 4. A-fib with RVR--converted to NSR; on amio 5. Hyponatremia Remains hemodynamically electrically stable. Euvolemic on exam and on right heart cath yesterday. Stable renal function and sodium --Continue maintenance Lasix 40 mg daily -- continue rhythm control with amiodarone 200mg daily. Continue anticoagulation, long term can transition back to Xarelto. -- BP improved and can start gradually optimizing HF regimen -- received valsartan today. If tolerates transition back to Entresto tomorrow 24-26 BID -- Continue current metoprolol today --> plan to transition back to carvedilol 3.125 mg and titrate up. -- Will try and add MRA, SGLT2 and some point. -- Continue digoxin. Appreciate ICU and hospital medicine care. Admission and Anticipated Discharge Date Admission Date: January 20, 2024 Subjective Up in chair, talking with Talking with Passy-[place] valve, feeling well. No new complaints. Denies chest pain. Breathing stable Telemetry reviewedno recurrent AF Review of Systems Review of Systems: All systems reviewed & are unremarkable except as noted in HPI & below Physical Exam Physical Exam: General: comfortable, HEENT: Sclerae anicteric Lungs: Coarse, no crackles Cardiac: Regular, no murmurs Vascular: No apparent access a complication Abdomen: Soft Extremities: warm, no significant edema Results & Data Vital Signs (Past 12 Hours) Vital Signs Temp Pulse Resp BP Pulse Ox O2 Del Method FiO2 02/05/24 13:03 79 35 H 91 02/05/24 13:01 152/82 H 02/05/24 13:01 152/82 H 02/05/24 12:30 77 20 84 L 02/05/24 12:27 78 16 90 02/05/24 11:55 73 29 H 96 02/05/24 10:49 72 02/05/24 08:30 Trach Collar 02/05/24 08:03 99.3 F 82 25 H 91 02/05/24 08:01 136/73 02/05/24 08:01 136/73 02/05/24 08:00 86 02/05/24 08:00 99.3 F 82 23 90 02/05/24 07:09 99.3 F 82 19 94 02/05/24 07:00 137/75 02/05/24 07:00 137/75 02/05/24 06:57 99.5 F 84 28 H 97 02/05/24 06:51 99.5 F 84 30 H 97 02/05/24 06:03 99.1 F 79 23 120/60 97 02/05/24 05:51 99.5 F 82 9 L 98 02/05/24 05:03 99.3 F 77 19 99/56 L 97 02/05/24 04:48 99.3 F 74 19 97 02/05/24 04:00 98.1 F 78 30 H 130/82 97 02/05/24 04:00 35 02/05/24 03:52 78 20 96 35 02/05/24 03:03 99.3 F 79 22 121/74 98 02/05/24 02:54 99.3 F 77 24 97 02/05/24 02:12 99.3 F 76 23 97 02/05/24 02:00 133/78 02/05/24 01:57 99.5 F 75 24 98 PG Care Time/CCT Total # of Minutes Spent Total Time Spent with Patient: Total time spent is greater than 50% in coordination of care (as documented) at patient's floor/unit and/or counseling patient: Coding Level of Care Code 87274 SUB INP/OBS CARE 3/50MIN Diagnoses Acute on chronic HFrEF (heart failure with reduced ejection fraction) I50.23
[2024-02-06 05:09] LABS: Basophils # (auto) 0.11 K/uL (0.00-0.20); Basophils % (auto) 1.2 %; Eosinophils # (auto) 0.06 K/uL (0.00-0.50); Eosinophils % (auto) 0.6 %; Hematocrit (blood only) 35.1 % (42.0-52.0); Hemoglobin 11.7 g/dl (14.0-18.0); Immature Granulocytes # (auto) 0.17 K/uL (0.01-0.20); Immature Granulocytes % (auto) 1.8 %; Lymphocytes # (auto) 1.24 K/uL (1.20-3.40); Lymphocytes % (auto) 13.3 %; Mean Corpuscular Hemoglobin 33.6 pg (25.0-34.0); Mean Corpuscular Hgb Conc 33.3 g/dL (32.0-36.0); Mean Corpuscular Volume 100.9 fL (80.0-100.0); Mean Platelet Volume 9.2 fL (9.4-12.4); Monocytes # (auto) 1.15 K/uL (0.11-0.59); Monocytes % (auto) 12.3 %; Neutrophils # (auto) 6.61 K/uL (1.40-6.50); Neutrophils % (auto) 70.8 %; Platelet Count 587 K/uL (130-400); RDW Coefficient of Variation 13.2 % (11.5-14.5); RDW Standard Deviation 49.2 fL (36.4-46.3); Red Blood Count 3.48 M/uL (4.70-6.10); White Blood Count 9.34 K/ul (4.8-10.8)
[2024-02-06 05:19] LABS: BUN Creatinine Ratio 25.9 (10-20); Calcium 8.1 mg/dl (8.6-10.3); Est GFR (African American) 134.1 ml/min; Est GFR (Non-African American) 115.7 ml/min; Magnesium 1.8 mg/dl (1.7-2.4); Phosphorus 3.9 mg/dl (2.5-4.9); Potassium 4.3 mmol/L (3.5-5.1)
[2024-02-06] MEDS: VALSARTAN/SACUBITRIL 26/24MG TAB PO SCH (09:34)
--- NOTE | 2024-02-06 10:42 | Hospitalist Progress Note ---
Date of Service February 06, 2024 Assessment & Plan (1) Respiratory failure: Plan: Patient was admitted to the hospital and found to be in respiratory failure He required intubation and ventilation, was extubated, However failed weaning trial Reintubation 01/25/2024. tracheostomy placed 01/26/24 now with trach collar and Passy Miur valve, PRN Morphine for air hunger Continue trach care Appreciate pulmonology recommendations and automotive parts salesperson (2) Atrial fibrillation with rapid ventricular response: Plan: Patient went into A-fib with RVR Started on Cardizem, Amiodarone and digoxin and metoprolol Currently in sinus rhythm Now on Lovenox Cardiology on board, appreciate recs (3) Hyponatremia: Plan: Likely driven by ADH on account of CHF Nephrology on board has been started on Tolvaptan Continue Lasix (4) Acute on chronic HFrEF (heart failure with reduced ejection fraction): Plan: ECHO showed EF15-20% with severe dyskinesia Cardiac cath done 02/03 showed clean coronaries Continue Lasix Monitor I/O, daily weight (5) Aspiration pneumonia: Plan: CT scan of the chest showed evidence of likely aspiration pneumonia currently on Zosyn (6) Nutrition impaired due to limited access to nutrition related supplies: Plan: Continue NG tube feed and soft diet Nutritional consult (7) Physical deconditioning: Plan: Continue physical therapy (8) Low grade fever: (9) Non-ischemic cardiomyopathy: (10) History of alcohol abuse: Plan: unclear of last drink, no sign of withdrawal on thiamine also tobacco abuse Plan Continue to monitor in the ICU, SW sent out referrals for Nursing Homes with Trach/vent capabilities, I called his insurance and I spoke with Onelia. She said that before than can review his case and determine qualification for LTAC, she needs a lot of supporting documents, including but not limited to all the clinical notes, PT notes, notes from [facility] [employer], Cardiology. All the documents can be faxed to [phone]. The human services case manager can also call her personal cell [phone] for additional concerns or information Admission and Anticipated Discharge Date Admission Date: January 20, 2024 Subjective patient seen and examined Review of Systems Review of Systems: All systems reviewed are negative, apart from the ones contained in the history. Physical Exam Physical Exam: The patient is awake, alert and oriented 3, trach in situ HEENT--PERRL, EOMI, mucous membranes and oropharynx mildly dry Neck--trach in situ Heart--normal S1 and S2. No murmurs, rubs or gallops. Lungs--clear bilaterally, no respiratory distress, no accessory muscle use. Abdomen--normal bowel sounds and soft. Extremities--no cyanosis or clubbing. No edema. Dermatologic--normal skin turgor, normal color, no abnormal lymph nodes, no rash. Neurologic--cranial nerves II through XII grossly intact. Rheumatologic--normal range of motion. Psychiatric--normal affect. Results & Data Results & Data Vital Signs (Past 12 Hours) Vital Signs Temp Pulse Resp BP Pulse Ox O2 Del Method FiO2 02/06/24 10:03 87 26 H 94 Trach Collar 40 02/06/24 10:00 163/88 H 02/06/24 10:00 163/88 H 02/06/24 10:00 163/88 H 02/06/24 09:54 86 19 94 02/06/24 09:00 80 26 H 92 02/06/24 09:00 138/77 02/06/24 09:00 138/77 02/06/24 08:06 83 32 H 92 02/06/24 08:00 136/78 02/06/24 08:00 136/78 02/06/24 07:57 85 25 H 92 02/06/24 07:30 Trach Collar 40 02/06/24 07:06 79 25 H 97 02/06/24 07:00 114/64 02/06/24 06:54 78 22 97 02/06/24 06:51 79 24 97 02/06/24 06:50 78 02/06/24 06:09 82 23 107/63 97 02/06/24 05:57 77 22 99 02/06/24 05:15 80 26 H 97 02/06/24 05:00 102/55 L 02/06/24 04:33 82 25 H 98 02/06/24 04:00 141/77 H 02/06/24 04:00 84 32 H 100 02/06/24 04:00 35 02/06/24 03:42 99.1 F 02/06/24 03:34 79 25 H 96 35 02/06/24 03:15 78 22 98 02/06/24 03:00 114/61 02/06/24 02:51 78 23 97 09/29/24 02:24 109/58 L 02/06/24 02:18 80 29 H 96 02/06/24 02:09 77 24 96 02/06/24 01:12 76 02/06/24 01:00 77 25 H 89/51 L 97 02/06/24 00:48 76 23 97 02/06/24 00:45 103/63 02/06/24 00:33 75 2 L 98/56 L 96 02/06/24 00:27 75 24 96 02/06/24 00:15 103/58 L 02/06/24 00:09 80 20 98 02/06/24 00:00 104/55 L 02/06/24 00:00 35 02/05/24 23:54 76 24 100 02/05/24 23:45 79 21 110/64 100 02/05/24 23:43 25 H 35 02/05/24 23:33 99.7 F H 02/05/24 23:30 77 25 H 112/59 L 99 02/05/24 23:00 76 25 H 95/53 L 98 02/05/24 22:45 76 26 H 90/51 L 98 PG Care Time/CCT Total # of Minutes Spent Total Time Spent with Patient: Total time spent is greater than 50% in coordination of care (as documented) at patient's floor/unit and/or counseling patient: Coding Level of Care Code 23069 SUB INP/OBS CARE 2/35MIN Diagnoses Respiratory failure J96.90 Atrial fibrillation with rapid ventricular response I48.91 Hyponatremia E87.1 Acute on chronic HFrEF (heart failure with reduced ejection fraction) I50.23 Aspiration pneumonia J69.0 Nutrition impaired due to limited access to nutrition related supplies E63.9 Physical deconditioning R53.81 Low grade fever R50.9 Non-ischemic cardiomyopathy I42.8 History of alcohol abuse F10.11
--- NOTE | 2024-02-06 11:40 | Critical Care Progress Note ---
Date of Service February 06, 2024 Assessment & Plan (1) Aspiration pneumonia: (2) Cardiogenic shock: (3) Respiratory failure: (4) COPD with emphysema: (5) Bilirubinemia: (6) Transaminitis: (7) Atrial flutter with rapid ventricular response: (8) Acute on chronic HFrEF (heart failure with reduced ejection fraction): (9) Non-ischemic cardiomyopathy: Plan Plan Impression: 58-year-old male status postcardiac arrest with history of heart failure and atrial fibrillation medical noncompliance. He was extubated but then required noninvasive positive pressure ventilation and eventually reintubation and subsequent percutaneous dilatation of tracheostomy placement. 24-hour events: Afebrile. No significant complaints. Recommendations: Neuro: Off sedation. Analgesia appears adequate. Continue physical therapy and Occupational Therapy for rehab. No obvious sequelae from the patient's prior arrest. Cardiac: Patient is status post cardiac arrest and atrial fibrillation. Cardiogenic shock is resolved. Amiodarone 200 mg daily. Left heart cath from earlier this admission revealed clean coronaries. EF still's profoundly reduced to 15%. Goal-directed therapy per cardiology as blood pressure allows. Repeat digoxin level on Wednesday. Patient also on therapeutic Lovenox. Continue metoprolol per cardiology recommendations. Entresto added back on by cardiology. Respiratory: Chest x-ray from 02/03/2024 with bilateral interstitial opacities. Patient currently requiring minimal oxygen support. Repeat chest x-ray in 1 to 2 days. Possible combined aspiration pneumonitis and pulmonary edema. Also less likely would be amiodarone induced toxicity. Low threshold to repeat a CT chest. Pro- Dick has been unremarkable. Zosyn been reinitiated as of 02/02/24. Continue for 7 days total. Respiratory viral panel 01/31/2024 was negative. Continue trach collar trials as able and Passy-Franny valve as able. Pressure support at night. GI: Will touch base with nutrition about discontinuing tube feeds and simply continuing with oral feeding as the patient is on Passy-Franny valve during the day. RENAL/LYTES: Hyponatremia improved. Status post tolvaptan earlier this admission. Appreciate nephrology input. Defer additional doses to nephrology. : No Burk catheter at this point. ENDO: Glycemic control per protocol HEME/ONC: No current issues. Therapeutic Lovenox for history of A-fib. ID: Patient afebrile over the last 12 hours. Continue Zosyn for total of 5 additional days. Janiya going from the urine and the sputum. Patient afebrile. If he spikes fevers again, will need to consider the addition of antifungal therapy as he has Janiya growing from 2 different sources. At this time, I suspect colonization. Burk removed 02/05/24 when patient able to void on his own at this time. Prophylaxis VTE: Lovenox, 60 mg, subQ, q12hrs GI: Lansoprazole Lines: peripheral lines x 3 Diet: Full strength enteral tube feeds Transition out of ICU once able to tolerate continuous Passy-[place] valve. Case management working on placement. Admission and Anticipated Discharge Date Admission Date: January 20, 2024 Subjective Patient denies any complaints this morning. Still requiring pressor support in the evening time. Currently on trach collar at this time with 40% humidified oxygen. Review of Systems Review of Systems: All systems reviewed & are unremarkable except as noted in HPI & below Physical Exam Constitutional: well developed, well nourished and cooperative; no acute distress Neck: Trach site clean dry and intact Respiratory: no respiratory distress, no labored breathing and not tachypneic Auscultation: + diminished lung sounds and + rhonchi; no crackles and no wheezes Cardiovascular: RRR, no murmur, no edema Gastrointestinal (Abdomen): normal bowel sounds, soft, nontender, no hepatosplenomegaly Neurologic: No focal deficit Results & Data Results & Data Vital Signs (Past 12 Hours) Vital Signs Temp Pulse Resp BP Pulse Ox O2 Del Method FiO2 02/06/24 11:09 73 26 H 94 02/06/24 11:00 138/82 02/06/24 10:54 75 18 94 02/06/24 10:03 87 26 H 94 Trach Collar 40 02/06/24 10:00 163/88 H 02/06/24 10:00 163/88 H 02/06/24 10:00 163/88 H 02/06/24 09:54 86 19 94 02/06/24 09:00 80 26 H 92 02/06/24 09:00 138/77 02/06/24 09:00 138/77 02/06/24 08:06 83 32 H 92 02/06/24 08:00 136/78 09/29/24 08:00 136/78 02/06/24 07:57 85 25 H 92 02/06/24 07:30 Trach Collar 40 02/06/24 07:06 79 25 H 97 02/06/24 07:00 114/64 02/06/24 06:54 78 22 97 02/06/24 06:51 79 24 97 02/06/24 06:50 78 02/06/24 06:09 82 23 107/63 97 02/06/24 05:57 77 22 99 02/06/24 05:15 80 26 H 97 02/06/24 05:00 102/55 L 02/06/24 04:33 82 25 H 98 02/06/24 04:00 141/77 H 02/06/24 04:00 84 32 H 100 02/06/24 04:00 35 02/06/24 03:42 37.3 C 02/06/24 03:34 79 25 H 96 35 02/06/24 03:15 78 22 98 02/06/24 03:00 114/61 02/06/24 02:51 78 23 97 02/06/24 02:24 109/58 L 02/06/24 02:18 80 29 H 96 02/06/24 02:09 77 24 96 02/06/24 01:12 76 02/06/24 01:00 77 25 H 89/51 L 97 02/06/24 00:48 76 23 97 02/06/24 00:45 103/63 02/06/24 00:33 75 2 L 98/56 L 96 02/06/24 00:27 75 24 96 02/06/24 00:15 103/58 L 02/06/24 00:09 80 20 98 02/06/24 00:00 104/55 L 02/06/24 00:00 35 02/05/24 23:54 76 24 100 02/05/24 23:45 79 21 110/64 100 02/05/24 23:43 25 H 35 Coding Level of Care Code 88939 SUB INP/OBS CARE 2/35MIN Diagnoses Aspiration pneumonia J69.0 Cardiogenic shock R57.0 Respiratory failure J96.90 COPD with emphysema J43.9 Bilirubinemia E80.6 Transaminitis R74.01 Atrial flutter with rapid ventricular response I48.92 Acute on chronic HFrEF (heart failure with reduced ejection fraction) I50.23 Non-ischemic cardiomyopathy I42.8
[2024-02-06 19:32] LABS: BUN Creatinine Ratio 25.5 (10-20); Calcium 8.2 mg/dl (8.6-10.3); Creatinine Clr Calc Pharmacy 122.6 ml/min; Est GFR (African American) 137.3 ml/min; Est GFR (Non-African American) 118.5 ml/min; Magnesium 1.8 mg/dl (1.7-2.4); Potassium 3.9 mmol/L (3.5-5.1)
[2024-02-06] MEDS: MAGNESIUM SULFATE / D5W 1 GM/100 ML BAG IV SCH (20:11)
[2024-02-06] MEDS: METOPROLOL TARTRATE 1 MG/ML VIAL IV STA ×2 (21:11→21:30)
[2024-02-07 04:51] LABS: Basophils # (auto) 0.12 K/uL (0.00-0.20); Basophils % (auto) 1.4 %; Eosinophils # (auto) 0.14 K/uL (0.00-0.50); Eosinophils % (auto) 1.6 %; Hematocrit (blood only) 36.9 % (42.0-52.0); Hemoglobin 12.3 g/dl (14.0-18.0); Immature Granulocytes % (auto) 2.4 %; Lymphocytes # (auto) 1.73 K/uL (1.20-3.40); Lymphocytes % (auto) 20.4 %; Mean Corpuscular Hemoglobin 33.1 pg (25.0-34.0); Mean Corpuscular Hgb Conc 33.3 g/dL (32.0-36.0); Mean Corpuscular Volume 99.2 fL (80.0-100.0); Monocytes % (auto) 12.9 %; Neutrophils # (auto) 5.21 K/uL (1.40-6.50); Neutrophils % (auto) 61.3 %; Platelet Count 599 K/uL (130-400); RDW Coefficient of Variation 12.9 % (11.5-14.5); Red Blood Count 3.72 M/uL (4.70-6.10)
[2024-02-07 05:05] LABS: Calcium 8.1 mg/dl (8.6-10.3); Creatinine Clr Calc Pharmacy 120.2 ml/min; Est GFR (African American) 136.2 ml/min; Est GFR (Non-African American) 117.5 ml/min; Magnesium 2.2 mg/dl (1.7-2.4); Phosphorus 3.5 mg/dl (2.5-4.9); Potassium 4.3 mmol/L (3.5-5.1)
--- NOTE | 2024-02-07 09:31 | Critical Care Progress Note ---
Date of Service February 07, 2024 Assessment & Plan (1) Aspiration pneumonia: (2) Cardiogenic shock: (3) Respiratory failure: (4) COPD with emphysema: (5) Bilirubinemia: (6) Transaminitis: (7) Atrial flutter with rapid ventricular response: (8) Acute on chronic HFrEF (heart failure with reduced ejection fraction): (9) Non-ischemic cardiomyopathy: Plan Plan Impression: 58-year-old male status postcardiac arrest with history of heart failure and atrial fibrillation medical noncompliance. He was extubated but then required noninvasive positive pressure ventilation and eventually reintubation and subsequent percutaneous dilatation of tracheostomy placement. 24-hour events: Afebrile. No significant complaints. Recommendations: Neuro: Off sedation. Analgesia appears adequate. Continue physical therapy and Occupational Therapy for rehab. No obvious sequelae from the patient's prior arrest. Cardiac: Patient is status post cardiac arrest and atrial fibrillation. Cardiogenic shock is resolved. Amiodarone 200 mg daily. Left heart cath from earlier this admission revealed clean coronaries. EF still's profoundly reduced to 15%. Goal-directed therapy per cardiology as blood pressure allows. Digoxin level reviewed. Patient also on therapeutic Lovenox. Continue metoprolol per cardiology recommendations. Entresto added back on by cardiology. Respiratory: I removed the stay sutures today -Discontinue pressure support this evening. If patient tolerates would consider decannulation tomorrow GI: Nutrition to adjust tube feeding for meeting supplemental goals/protein intake RENAL/LYTES: Hyponatremia. Status post tolvaptan earlier this admission. Appreciate nephrology input. Defer additional doses to nephrology. -Would consider potassium sparing diuretic to optimize cardiac medication regimen versus free water diuretic : No Burk catheter at this point. ENDO: Glycemic control per protocol HEME/ONC: No current issues. Therapeutic Lovenox for history of A-fib. ID: Patient afebrile over the last 12 hours. Continue Zosyn day 5/7. Janiya going from the urine and the sputum. Patient afebrile. If he spikes fevers again, will need to consider the addition of antifungal therapy as he has Janiya growing from 2 different sources. At this time, I suspect colonization. Burk removed 02/05/24 when patient able to void on his own at this time. Prophylaxis VTE: Lovenox, 60 mg, subQ, q12hrs GI: Lansoprazole Lines: peripheral lines x 3 Diet: Supplemental tube feedings, working to increase volitional nutrition Admission and Anticipated Discharge Date Admission Date: January 20, 2024 Subjective Able to speak with Passy-Wiggins valve. Reports he ate breakfast would like to use commode, no significant complaints. Physical Exam Physical Exam: General: Alert. nontoxic. Skin: Warm, dry, Head: Atraumatic Ears, nose, mouth and throat: airway patent, tracheostomy present with Passy- Franny valve attached Cardiovascular: Normal peripheral perfusion Respiratory: no respiratory distress Gastrointestinal: Non distended Musculoskeletal: No deformity Results & Data Results & Data Vital Signs (Past 12 Hours) Vital Signs Temp Pulse Resp BP Pulse Ox FiO2 02/07/24 06:09 110 H 23 104/53 L 97 02/07/24 05:42 96 H 18 97 02/07/24 05:06 90 26 H 98 02/07/24 05:05 102/58 L 02/07/24 05:04 73/47 L 02/07/24 05:00 75/53 L 02/07/24 04:57 107 H 22 97 02/07/24 04:12 107/56 L 02/07/24 04:09 112 H 27 H 95 02/07/24 04:01 80/55 L 02/07/24 04:00 35 02/07/24 03:51 87 27 H 97 02/07/24 03:43 102/49 L 02/07/24 03:39 123 H 29 H 02/07/24 03:12 111 H 29 H 96 02/07/24 03:02 79/64 L 02/07/24 02:39 128 H 28 H 100 02/07/24 02:03 139 H 22 110/56 L 97 02/07/24 01:48 86 20 98 02/07/24 01:00 74 24 90/49 L 02/07/24 00:09 110/65 02/07/24 00:06 134 H 19 94/52 L 97 02/07/24 00:00 115 H 02/07/24 00:00 35 02/06/24 23:54 92 H 21 92 02/06/24 23:15 138 H 28 H 97 02/06/24 23:00 99/56 L 02/06/24 22:58 37.3 C 02/06/24 22:54 93 H 26 H 98 02/06/24 22:45 89/52 L 02/06/24 22:42 79 26 H 98 02/06/24 22:30 103/51 L 02/06/24 22:16 82/35 L 02/06/24 22:15 108 H 27 H 99 02/06/24 22:09 113 H 26 H 105/58 L 99 02/06/24 21:54 135 H 21 100 02/06/24 21:51 114 H 70/56 L 02/06/24 21:48 107 H 26 H 98 02/06/24 21:45 70/56 L 02/06/24 21:42 131 H 23 97 02/06/24 21:33 132 H 25 H 91/60 L 98 02/06/24 21:31 132 H 91/60 L 02/06/24 21:30 132 H 91/60 L 02/06/24 21:26 114 H 25 H 98 35 02/06/24 21:24 133 H 24 97 Critical Care Results & Data Vital Signs (Past 12 Hours) Vital Signs Temp Pulse Resp BP Pulse Ox FiO2 02/07/24 06:09 110 H 23 104/53 L 97 02/07/24 05:42 96 H 18 97 02/07/24 05:06 90 26 H 98 02/07/24 05:05 102/58 L 02/07/24 05:04 73/47 L 02/07/24 05:00 75/53 L 02/07/24 04:57 107 H 22 97 02/07/24 04:12 107/56 L 02/07/24 04:09 112 H 27 H 95 02/07/24 04:01 80/55 L 02/07/24 04:00 35 02/07/24 03:51 87 27 H 97 02/07/24 03:43 102/49 L 02/07/24 03:39 123 H 29 H 02/07/24 03:12 111 H 29 H 96 02/07/24 03:02 79/64 L 02/07/24 02:39 128 H 28 H 100 02/07/24 02:03 139 H 22 110/56 L 97 02/07/24 01:48 86 20 98 02/07/24 01:00 74 24 90/49 L 02/07/24 00:09 110/65 02/07/24 00:06 134 H 19 94/52 L 97 02/07/24 00:00 115 H 02/07/24 00:00 35 02/06/24 23:54 92 H 21 92 02/06/24 23:15 138 H 28 H 97 02/06/24 23:00 99/56 L 02/06/24 22:58 37.3 C 02/06/24 22:54 93 H 26 H 98 02/06/24 22:45 89/52 L 02/06/24 22:42 79 26 H 98 02/06/24 22:30 103/51 L 02/06/24 22:16 82/35 L 02/06/24 22:15 108 H 27 H 99 02/06/24 22:09 113 H 26 H 105/58 L 99 02/06/24 21:54 135 H 21 100 02/06/24 21:51 114 H 70/56 L 02/06/24 21:48 107 H 26 H 98 02/06/24 21:45 70/56 L 02/06/24 21:42 131 H 23 97 02/06/24 21:33 132 H 25 H 91/60 L 98 02/06/24 21:31 132 H 91/60 L 02/06/24 21:30 132 H 91/60 L 02/06/24 21:26 114 H 25 H 98 35 Lab & Micro Results (Past 24 Hours) RBC 3.72 M/uL (4.70-6.10) L 02/07/24 WBC 8.50 K/ul (4.8-10.8) 02/07/24 Hgb 12.3 g/dl (14.0-18.0) L 02/07/24 Hct 36.9 % (42.0-52.0) L 02/07/24 MCV 99.2 fL (80.0-100.0) 02/07/24 MCH 33.1 pg (25.0-34.0) 02/07/24 MCHC 33.3 g/dL (32.0-36.0) 02/07/24 RDW Standard Deviation 47.0 fL (36.4-46.3) H 02/07/24 RDW Coefficient of Variation 12.9 % (11.5-14.5) 02/07/24 Plt Count 599 K/uL (130-400) H 02/07/24 MPV 9.0 fL (9.4-12.4) L 02/07/24 Neutrophils (%) (Auto) 61.3 % 02/07/24 Lymphocytes (%) (Auto) 20.4 % 02/07/24 Monocytes # (Auto) 1.10 K/uL (0.11-0.59) H 02/07/24 Eosinophils # (Auto) 0.14 K/uL (0.00-0.50) 02/07/24 Immature Granulocyte % (Auto) 2.4 % 02/07/24 Neutrophils # (Auto) 5.21 K/uL (1.40-6.50) 02/07/24 Lymphocytes # (Auto) 1.73 K/uL (1.20-3.40) 02/07/24 Monocytes # (Auto) 1.10 K/uL (0.11-0.59) H 02/07/24 Eosinophils # (Auto) 0.14 K/uL (0.00-0.50) 02/07/24 Basophils # (Auto) 0.12 K/uL (0.00-0.20) 02/07/24 Immature Granulocyte # (Auto) 0.20 K/uL (0.01-0.20) 4 Na 125 mmol/L (136-145) L 02/07/24 K 4.3 mmol/L (3.5-5.1) 02/07/24 Cl 95 mmol/L (98-107) L 02/07/24 CO2 25 mmol/L (21-32) 02/07/24 Anion Gap 5 (3-11) 02/07/24 BUN 13 mg/dl (6-23) 02/07/24 Creatinine 0.52 mg/dl (0.6-1.4) L 02/07/24 Estimated GFR ( Amer) 136.2 ml/min 02/07/24 Estimated GFR (Non-Af Amer) 117.5 ml/min 02/07/24 BUN/Creatinine Ratio 25.0 (10-20) H 02/07/24 Glu 125 mg/dl (70-99(Fasting)) H 02/07/24 Ca 8.1 mg/dl (8.6-10.3) L 02/07/24 Phosphorus Level 3.5 mg/dl (2.5-4.9) 02/07/24 Mg 2.2 mg/dl (1.7-2.4) 02/07/24 04:18 Calcium Level 8.1 mg/dl (8.6-10.3) L 02/07/24 04:18 Microbiology 01/25/24 11:10 Acid Fast Bacilli Smear - Final Ba Lavage,Right Upper Lobe Acid Fast Bacilli Culture - Preliminary No Acid-Fast Bacilli Isolated - Report 2, Additional Report to Follow. I & O Totals 24 Hours 02/06/24 02/07/24 02/08/24 06:59 06:59 06:59 Intake Total 990 / 990 1410 / 1410 Output Total 950 / 950 1476 / 1476 Balance 40 / 40 -66 / -66 Cumulative 01/20/24 05:01 thru 02/07/24 06:00 Intake Total 78090.073 Output Total 12249 Balance -5034.927 RT Ventilator Mngmt (Last Documented) Ventilator Ordered Settings Ventilator Support Mode CPAP 02/07/24 04:00 Respiratory Rate 23 02/07/24 06:09 Ventilator Tidal Volume 450 02/04/24 17:44 Setting Minute Ventilation 15.6 02/06/24 21:26 Ventilator Positive Pressure 7 02/07/24 04:00 Support Setting Positive End Expiratory 6 02/07/24 04:00 Pressure Fraction of Inspired Oxygen 35 02/07/24 04:00 Peak Inspiratory Flow 60 01/22/24 15:10 Machine Comment patient placed back onto pressure 02/06/24 21:26 support at this time. Ventilator - PT Measurements Respiratory Rate 23 Exhaled Tidal Volume 431 Minute Ventilation 15.6 Peak Inspiratory Airway 13 Pressure Mean Airway Pressure 30 Plateau Pressure 7 Respiratory Cycle Inspiratory: 1:3.9 Expiratory Ratio Inspiratory Phase Time 0.70 End-Tidal CO2 25 Static Lung Compliance 431.00 Dynamic Lung Compliance 61.57 Normal Static Lung Compliance 49.00 Patient Measurements Comment pt takne off Vent and palced on ATC Coding Level of Care Code 60638 SUB INP/OBS CARE 3/50MIN Diagnoses Aspiration pneumonia J69.0 Cardiogenic shock R57.0 Respiratory failure J96.90 COPD with emphysema J43.9 Bilirubinemia E80.6 Transaminitis R74.01 Atrial flutter with rapid ventricular response I48.92 Acute on chronic HFrEF (heart failure with reduced ejection fraction) I50.23 Non-ischemic cardiomyopathy I42.8
--- NOTE | 2024-02-07 11:03 | Cardiology Progress Note ---
Date of Service February 07, 2024 Assessment & Plan (1) Acute on chronic HFrEF (heart failure with reduced ejection fraction): Plan: Nonischemic, EF 15-20%, severe global LV dysfunction 2. Persistent respiratory failure post trach 3. Prior PEA arrest/cardiogenic shock 4. A-fib with RVR--converted to NSR; on amio 5. Hyponatremia Hypotensive overnight. Improved this morning Remains euvolemic on exam Stable renal function. Sodium down trending. -- Continue monitor to Na. Plan to restart tolvaptan if continues to downtrend --Continue maintenance Lasix 40 mg daily -- continue rhythm control with amiodarone 200mg daily. Ok to transition back to Xarelto. -- Continue Entresto 24-26 mg BID. -- Continue metoprolol. Will reduce to 25mg BID. Toprol XL on discharge -- Will start Empagliflozin 10mg today -- Continue digoxin. -- Possibly add spironolactone 12.5 mg tomorrow if BP allows Appreciate ICU and hospital medicine care. Admission and Anticipated Discharge Date Admission Date: January 20, 2024 Subjective Feeling well. Up in the chair Passy-Franny valve in place. Denies chest pain. Denies breathing difficulty. Review of Systems Review of Systems: All systems reviewed & are unremarkable except as noted in HPI & below Physical Exam Physical Exam: General: comfortable, HEENT: Sclerae anicteric Lungs: Coarse, no crackles Cardiac: Regular, no murmurs Vascular: No apparent access a complication Abdomen: Soft Extremities: warm, no significant edema Results & Data Vital Signs (Past 12 Hours) Vital Signs Pulse Resp BP Pulse Ox O2 Del Method FiO2 02/07/24 09:50 76 02/07/24 08:00 Trach Collar 40 02/07/24 06:09 110 H 23 104/53 L 97 02/07/24 05:42 96 H 18 97 02/07/24 05:06 90 26 H 98 02/07/24 05:05 102/58 L 02/07/24 05:04 73/47 L 02/07/24 05:00 75/53 L 02/07/24 04:57 107 H 22 97 02/07/24 04:12 107/56 L 02/07/24 04:09 112 H 27 H 95 02/07/24 04:01 80/55 L 02/07/24 04:00 35 02/07/24 03:51 87 27 H 97 02/07/24 03:43 102/49 L 02/07/24 03:39 123 H 29 H 02/07/24 03:12 111 H 29 H 96 02/07/24 03:02 79/64 L 02/07/24 02:39 128 H 28 H 100 02/07/24 02:03 139 H 22 110/56 L 97 02/07/24 01:48 86 20 98 02/07/24 01:00 74 24 90/49 L 02/07/24 00:09 110/65 02/07/24 00:06 134 H 19 94/52 L 97 02/07/24 00:00 115 H 02/07/24 00:00 35 02/06/24 23:54 92 H 21 92 02/06/24 23:15 138 H 28 H 97 PG Care Time/CCT Total # of Minutes Spent Total Time Spent with Patient: Total time spent is greater than 50% in coordination of care (as documented) at patient's floor/unit and/or counseling patient: Coding Level of Care Code 74182 SUB INP/OBS CARE 3/50MIN Diagnoses Acute on chronic HFrEF (heart failure with reduced ejection fraction) I50.23
--- NOTE | 2024-02-07 12:07 | Hospitalist Progress Note ---
Date of Service February 07, 2024 Assessment & Plan (1) Respiratory failure: Plan: He presented with acute hypoxic respiratory failure requiring ventilator support. Tracheostomy placed January 25. He now has a trach collar in place with a Passy Blandon valve. He is doing well and hopefully the tracheostomy can be removed today, February 06. Appreciate pulmonology consultation and recommendations. (2) Atrial fibrillation with rapid ventricular response: Plan: Earlier this admission. He is now in normal sinus rhythm. He is on Cardizem, Amiodarone, digoxin and metoprolol. Also on Lovenox. Appreciate cardiology consultation recommendations. (3) Hyponatremia: Plan: With hypoosmolarity. 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 Sodium currently 125 and patient appears to be asymptomatic. Serial labs. Fluid restriction. Tolvaptan ordered by nephrology. He is also on Lasix. (4) Acute on chronic HFrEF (heart failure with reduced ejection fraction): Plan: ECHO showed EF15-20% with severe dyskinesia. Cardiac cath done 02/03 showed clean coronaries. Continue Lasix. Monitor I/O (5) Aspiration pneumonia: Plan: CT scan of the chest showed evidence of possible aspiration pneumonia. Currently on Zosyn for 7 days through February 07 (6) Non-ischemic cardiomyopathy: Plan: Left heart catheterization completed earlier this admission with no evidence of critical coronary disease (7) History of alcohol abuse: Plan: No evidence of alcohol withdrawal symptoms this admission. Supportive care Plan Hopefully the tracheostomy will be removed today, February 06. He probably will not need LTAC placement at that point. Case management can pursue rehab placement locally. Admission and Anticipated Discharge Date Admission Date: January 20, 2024 Subjective Alert and oriented. No distress. The tracheostomy could possibly be removed today, February 06. This would make rehab placement much easier since he would not need to go to an LTAC. Hopefully the tube feedings can be stopped shortly. Review of Systems 2 Review of Systems: Constitutionalno fever or chills ENTno blurred vision, no double vision, no epistaxis, no sore throat Respiratoryno cough, no wheezing, no shortness of breath Cardiacno palpitations, no chest pain, no syncope Suyapa nausea, vomiting, diarrhea, melena, hematochezia GUno urinary retention, no urinary incontinence, no dysuria, no hematuria Musculoskeletalno joint pain, no muscle tenderness Skinno bruising, no rashes, no pruritus Neurono isolated weakness, no paresthesia, no weakness Psychno depression, no anxiety Physical Exam 2 Physical Exam: General-alert and oriented x3, no fever, no chills HEENT-head atraumatic and normocephalic, pupils equal and reactive to light, extraocular muscles intact Neck-no lymphadenopathy or thyromegaly, trachea midline. Tracheostomy in place Chest-scattered bilateral rhonchi. No inspiratory rales. No wheezing Cardiac-regular rate and rhythm, normal S1 and S2 Abdomen-normal bowel sounds, no hepatosplenomegaly Extremities-no cyanosis, clubbing, or edema Neuro-cranial nerves II through XII intact, motor and sensory function within normal limits, strength symmetrical, no focal deficits Psych-normal affect, normal mood Results & Data Results & Data Vital Signs (Past 12 Hours) Vital Signs Pulse Resp BP Pulse Ox O2 Del Method FiO2 02/07/24 09:50 76 02/07/24 08:00 Trach Collar 40 02/07/24 06:09 110 H 23 104/53 L 97 02/07/24 05:42 96 H 18 97 02/07/24 05:06 90 26 H 98 02/07/24 05:05 102/58 L 02/07/24 05:04 73/47 L 02/07/24 05:00 75/53 L 02/07/24 04:57 107 H 22 97 02/07/24 04:12 107/56 L 02/07/24 04:09 112 H 27 H 95 02/07/24 04:01 80/55 L 02/07/24 04:00 35 02/07/24 03:51 87 27 H 97 02/07/24 03:43 102/49 L 02/07/24 03:39 123 H 29 H 02/07/24 03:12 111 H 29 H 96 02/07/24 03:02 79/64 L 02/07/24 02:39 128 H 28 H 100 02/07/24 02:03 139 H 22 110/56 L 97 02/07/24 01:48 86 20 98 02/07/24 01:00 74 24 90/49 L 02/07/24 00:09 110/65 02/07/24 00:06 134 H 19 94/52 L 97 Laboratory Results 02/07/24 04:18 02/07/24 04:18 PG Care Time/CCT Total # of Minutes Spent Total Time Spent with Patient: Total time spent is greater than 50% in coordination of care (as documented) at patient's floor/unit and/or counseling patient: Coding Level of Care Code 35387 SUB INP/OBS CARE 3/50MIN Diagnoses Respiratory failure J96.90 Atrial fibrillation with rapid ventricular response I48.91 Hyponatremia E87.1 Acute on chronic HFrEF (heart failure with reduced ejection fraction) I50.23 Aspiration pneumonia J69.0 Non-ischemic cardiomyopathy I42.8 History of alcohol abuse F10.11
[2024-02-07] MEDS: EMPAGLIFLOZIN 10 MG TAB PO SCH (12:46)
[2024-02-07] MEDS: METOPROLOL TARTRATE 25 MG TAB PO SCH (20:13)
[2024-02-08 04:25] LABS: Basophils % (auto) 1.7 %; Eosinophils # (auto) 0.17 K/uL (0.00-0.50); Eosinophils % (auto) 2.8 %; Hematocrit (blood only) 36.9 % (42.0-52.0); Hemoglobin 12.6 g/dl (14.0-18.0); Immature Granulocytes # (auto) 0.13 K/uL (0.01-0.20); Immature Granulocytes % (auto) 2.2 %; Lymphocytes # (auto) 1.49 K/uL (1.20-3.40); Lymphocytes % (auto) 24.8 %; Mean Corpuscular Hemoglobin 33.6 pg (25.0-34.0); Mean Corpuscular Hgb Conc 34.1 g/dL (32.0-36.0); Mean Corpuscular Volume 98.4 fL (80.0-100.0); Mean Platelet Volume 8.9 fL (9.4-12.4); Monocytes # (auto) 0.73 K/uL (0.11-0.59); Monocytes % (auto) 12.1 %; Neutrophils % (auto) 56.4 %; Platelet Count 539 K/uL (130-400); RDW Coefficient of Variation 12.7 % (11.5-14.5); RDW Standard Deviation 46.4 fL (36.4-46.3); Red Blood Count 3.75 M/uL (4.70-6.10); White Blood Count 6.02 K/ul (4.8-10.8)
[2024-02-08 04:37] LABS: BUN Creatinine Ratio 28.8 (10-20); Calcium 8.1 mg/dl (8.6-10.3); Creatinine Clr Calc Pharmacy 123.1 ml/min; Est GFR (African American) 136.2 ml/min; Est GFR (Non-African American) 117.5 ml/min; Magnesium 1.8 mg/dl (1.7-2.4); Potassium 4.2 mmol/L (3.5-5.1)
--- NOTE | 2024-02-08 09:19 | Communication Note ---
Date of Service: February 08, 2024 Palliative Medicine Brief Note I have been following this patient peripherally. He remains consistent and a desire to pursue continued current level of care and wishes to remain a full code. He is accepting of the likely need to transition to a ventilator facility. He does not wish to discuss any goals of care aside from his next facility. He is not interested in any conversation other than active treatment. For now I will sign off but remain available for additional reengagement if needed. Please page me should this be the case. Thank you for allowing us to participate in the ongoing care of this patient. Please page with any additional concerns. Benjie Will DNP Director, Palliative Medicine
--- NOTE | 2024-02-08 09:22 | XRay Report ---
XR chest 1V portable CLINICAL HISTORY: CHF COMPARISON STUDY: Chest radiograph February 03, 2024. Chest CT January 20, 2024. FINDINGS: Tracheostomy tube remains in place. Tip of feeding tube is below the lower aspect of this i mage but at least within the stomach. There is no pneumothorax or pleural effusion. Cardiomediastinal silhouette is stable. Right upper lobe airspace opacity persists. Additional patchy bilateral airspa ce opacities and interstitial thickening are again noted. IMPRESSION: Persistent bilateral airspace opacities, similar to prior exam. The findings favor multif ocal pneumonia. Continued radiographic follow-up to ensure resolution is recommended. ACT 112: Negative or not required by law. Electronically signed by: Wong Montenegro M.D. 02/08/2024 9:19 AM
--- NOTE | 2024-02-08 09:33 | Critical Care Progress Note ---
Date of Service February 08, 2024 Assessment & Plan (1) Aspiration pneumonia: (2) Cardiogenic shock: (3) Respiratory failure: (4) COPD with emphysema: (5) Bilirubinemia: (6) Transaminitis: (7) Atrial flutter with rapid ventricular response: (8) Acute on chronic HFrEF (heart failure with reduced ejection fraction): (9) Non-ischemic cardiomyopathy: Plan Plan Impression: 58-year-old male status postcardiac arrest with history of heart failure and atrial fibrillation medical noncompliance. He was extubated but then required noninvasive positive pressure ventilation and eventually reintubation and subsequent percutaneous dilatation of tracheostomy placement. 24-hour events: Afebrile. No significant complaints. Recommendations: Neuro: Analgesia appears adequate. Continue physical therapy and Occupational Therapy for rehab. No obvious sequelae from the patient's prior arrest. Cardiac: Patient is status post cardiac arrest and paroxysmal atrial fibrillation. Cardiogenic shock is resolved. Amiodarone 200 mg daily. Left heart cath from earlier this admission revealed clean coronaries. EF still's profoundly reduced to 15%. Goal-directed therapy per cardiology as blood pressure allows. Digoxin level reviewed. Patient also on therapeutic Lovenox. Continue metoprolol per cardiology recommendations. Entresto by cardiology, added spironolactone 25 mg daily Respiratory: Pulmonary edema resolved, tolerated trach collar greater than 36 hours patient wishes to proceed with decannulation GI: Nutrition to adjust tube feeding for meeting supplemental goals/protein intake -Fluid restriction of 1500 mL daily -Speech and swallow study today status post decannulation RENAL/LYTES: Hyponatremia. Continue monitoring, continue with diuretic therapy -If sodium continues to dropped would consider administration of tolvaptan : No Burk catheter at this point. ENDO: Glycemic control per protocol HEME/ONC: No current issues. Transition to Xarelto for history of A-fib. ID: Patient afebrile over the last 12 hours. Continue Zosyn day 6/7. Janiya going from the urine and the sputum. Patient afebrile. If he spikes fevers again, will need to consider the addition of antifungal therapy as he has Janiya growing from 2 different sources. At this time, I suspect colonization. Burk removed 02/05/24 when patient able to void on his own at this time. Prophylaxis VTE: Xarelto GI: Lansoprazole Lines: peripheral lines x 3 Diet: Heart healthy with fluid restriction Critical care needs by enlarge have resolved, patient stable for downgrade out of ICU. Admission and Anticipated Discharge Date Admission Date: January 20, 2024 Supervising Physician Co-Signing Physician Notes Reviewed prior documentation particularly 01/25 discussion regarding intubation and tracheostomy, respiratory failure secondary to pulmonary edema appears to have resolved. Patient has tolerated extended trach collar trials and is not desaturating overnight. Notes reveal acute on chronic heart failure with reduced ejection fraction with an EF of 15 to 20% with severe global left ventricular dysfunction complicated with atrial fibrillation with rapid ventricular response. Was discussion about urgent referral for advanced heart failure clinic and consideration of LVAD should the patient's heart failure not improve. Over several days the patient showed mild improvement: 02/03 cardiac catheterization revealed adequate cardiac output despite nonischemic cardiomyopathy and continued medical optimization. Patient is globally down approximately 6 L. Discussed with patient decannulation of tracheostomy, risks include need to replace should he have significant decompensation of heart failure and subsequent difficulty placing tracheostomy and previous site. Patient wishes to proceed Subjective Patient in good spirits Physical Exam Physical Exam: General: Alert. nontoxic. Frail appearing Skin: Warm, dry, Head: Atraumatic Ears, nose, mouth and throat: airway patent, tracheostomy tube in place with Passy-Franny valve and cuff deflated Cardiovascular: Normal peripheral perfusion Respiratory: no respiratory distress Gastrointestinal: Non distended Musculoskeletal: No deformity Results & Data Results & Data Vital Signs (Past 12 Hours) Vital Signs Temp Pulse Resp BP Pulse Ox 02/08/24 06:00 122/72 02/08/24 05:39 65 17 100 02/08/24 05:00 63 12 100 02/08/24 05:00 102/69 02/08/24 04:03 65 16 100 02/08/24 04:00 36.7 C 118/72 02/08/24 03:00 127/75 02/08/24 03:00 67 20 100 02/08/24 02:00 118/74 02/08/24 01:57 70 17 100 02/08/24 01:00 119/64 02/08/24 00:48 66 14 100 02/08/24 00:00 100/67 02/08/24 00:00 100/67 02/08/24 00:00 100/67 02/08/24 00:00 36.6 C 67 16 100 02/07/24 23:08 66 02/07/24 23:00 126/66 02/07/24 23:00 126/66 02/07/24 23:00 126/66 02/07/24 23:00 67 19 100 02/07/24 22:03 66 20 96 02/07/24 22:00 105/67 02/07/24 22:00 105/67 02/07/24 21:57 36.5 C 02/07/24 21:51 66 12 95 Critical Care Results & Data Vital Signs (Past 12 Hours) Vital Signs Temp Pulse Resp BP Pulse Ox O2 Del Method 02/08/24 10:33 36.6 C 02/08/24 10:04 74 02/08/24 10:00 74 24 145/76 H 98 02/08/24 09:00 79 21 134/85 95 02/08/24 08:00 78 17 119/71 96 Trach Collar 02/08/24 08:00 Trach Collar 02/08/24 07:00 71 14 127/76 100 02/08/24 06:00 122/72 02/08/24 05:39 65 17 100 02/08/24 05:00 63 12 100 02/08/24 05:00 102/69 02/08/24 04:03 65 16 100 02/08/24 04:00 36.7 C 118/72 02/08/24 03:00 127/75 02/08/24 03:00 67 20 100 02/08/24 02:00 118/74 02/08/24 01:57 70 17 100 02/08/24 01:00 119/64 02/08/24 00:48 66 14 100 02/08/24 00:00 100/67 02/08/24 00:00 100/67 02/08/24 00:00 100/67 02/08/24 00:00 36.6 C 67 16 100 Lab & Micro Results (Past 24 Hours) RBC 3.75 M/uL (4.70-6.10) L 02/08/24 WBC 6.02 K/ul (4.8-10.8) 02/08/24 Hgb 12.6 g/dl (14.0-18.0) L 02/08/24 Hct 36.9 % (42.0-52.0) L 02/08/24 MCV 98.4 fL (80.0-100.0) 02/08/24 MCH 33.6 pg (25.0-34.0) 02/08/24 MCHC 34.1 g/dL (32.0-36.0) 02/08/24 RDW Standard Deviation 46.4 fL (36.4-46.3) H 02/08/24 RDW Coefficient of Variation 12.7 % (11.5-14.5) 02/08/24 Plt Count 539 K/uL (130-400) H 02/08/24 MPV 8.9 fL (9.4-12.4) L 02/08/24 Neutrophils (%) (Auto) 56.4 % 02/08/24 Lymphocytes (%) (Auto) 24.8 % 02/08/24 Monocytes # (Auto) 0.73 K/uL (0.11-0.59) H 02/08/24 Eosinophils # (Auto) 0.17 K/uL (0.00-0.50) 02/08/24 Immature Granulocyte % (Auto) 2.2 % 02/08/24 Neutrophils # (Auto) 3.40 K/uL (1.40-6.50) 02/08/24 Lymphocytes # (Auto) 1.49 K/uL (1.20-3.40) 02/08/24 Monocytes # (Auto) 0.73 K/uL (0.11-0.59) H 02/08/24 Eosinophils # (Auto) 0.17 K/uL (0.00-0.50) 02/08/24 Basophils # (Auto) 0.10 K/uL (0.00-0.20) 02/08/24 Immature Granulocyte # (Auto) 0.13 K/uL (0.01-0.20) 4 Na 127 mmol/L (136-145) L 02/08/24 K 4.2 mmol/L (3.5-5.1) 02/08/24 Cl 96 mmol/L (98-107) L 02/08/24 CO2 25 mmol/L (21-32) 02/08/24 Anion Gap 6 (3-11) 02/08/24 BUN 15 mg/dl (6-23) 02/08/24 Creatinine 0.52 mg/dl (0.6-1.4) L 02/08/24 Estimated GFR ( Amer) 136.2 ml/min 02/08/24 Estimated GFR (Non-Af Amer) 117.5 ml/min 02/08/24 BUN/Creatinine Ratio 28.8 (10-20) H 02/08/24 Glu 107 mg/dl (70-99(Fasting)) H 02/08/24 Ca 8.1 mg/dl (8.6-10.3) L 02/08/24 Mg 1.8 mg/dl (1.7-2.4) 02/08/24 03:55 Calcium Level 8.1 mg/dl (8.6-10.3) L 02/08/24 03:55 Microbiology 02/02/24 19:33 Aerobic Blood Culture - Final Blood No growth in Aerobic bottle after 5 days. Anaerobic Blood Culture - Final No growth in Anaerobic bottle after 5 days. Diagnostic Findings (Past 24 Hours) Chest X-Ray 02/08/24 09:03 XR chest 1V portable CLINICAL HISTORY: CHF COMPARISON STUDY: Chest radiograph February 03, 2024. Chest CT January 20, 2024. FINDINGS: Tracheostomy tube remains in place. Tip of feeding tube is below the lower aspect of this image but at least within the stomach. There is no pneumothorax or pleural effusion. Cardiomediastinal silhouette is stable. Right upper lobe airspace opacity persists. Additional patchy bilateral airspace opacities and interstitial thickening are again noted. IMPRESSION: Persistent bilateral airspace opacities, similar to prior exam. The findings favor multifocal pneumonia. Continued radiographic follow-up to ensure resolution is recommended. ACT 112: Negative or not required by law. Electronically signed by: Wong Montenegro M.D. 02/08/2024 9:19 AM I & O Totals 24 Hours 02/07/24 02/08/24 02/09/24 06:59 06:59 06:59 Intake Total 1410 / 1410 1068 / 1068 Output Total 1476 / 1476 1902 / 1902 Balance -66 / -66 -834 / -834 Cumulative 01/20/24 05:01 thru 02/08/24 06:33 Intake Total 43128.073 Output Total 20928 Balance -5868.927 RT Ventilator Mngmt (Last Documented) Ventilator Ordered Settings Ventilator Support Mode CPAP 02/07/24 04:00 Respiratory Rate 24 02/08/24 10:00 Ventilator Tidal Volume 450 02/04/24 17:44 Setting Minute Ventilation 15.6 02/06/24 21:26 Ventilator Positive Pressure 7 02/07/24 04:00 Support Setting Positive End Expiratory 6 02/07/24 04:00 Pressure Fraction of Inspired Oxygen 40 02/07/24 21:00 Peak Inspiratory Flow 60 01/22/24 15:10 Machine Comment patient placed back onto pressure 02/06/24 21:26 support at this time. Ventilator - PT Measurements Respiratory Rate 24 Exhaled Tidal Volume 431 Minute Ventilation 15.6 Peak Inspiratory Airway 13 Pressure Mean Airway Pressure 30 Plateau Pressure 7 Respiratory Cycle Inspiratory: 1:3.9 Expiratory Ratio Inspiratory Phase Time 0.70 End-Tidal CO2 25 Static Lung Compliance 431.00 Dynamic Lung Compliance 61.57 Normal Static Lung Compliance 49.00 Patient Measurements Comment pt takne off Vent and palced on ATC Coding Level of Care Code 63074 SUB INP/OBS CARE 3/50MIN Diagnoses Aspiration pneumonia J69.0 Cardiogenic shock R57.0 Respiratory failure J96.90 COPD with emphysema J43.9 Bilirubinemia E80.6 Transaminitis R74.01 Atrial flutter with rapid ventricular response I48.92 Acute on chronic HFrEF (heart failure with reduced ejection fraction) I50.23 Non-ischemic cardiomyopathy I42.8
--- NOTE | 2024-02-08 09:39 | Cardiology Progress Note ---
Date of Service February 08, 2024 Assessment & Plan (1) Acute on chronic HFrEF (heart failure with reduced ejection fraction): Plan: Nonischemic, EF 15-20%, severe global LV dysfunction 2. Persistent respiratory failure post trach 3. Prior PEA arrest/cardiogenic shock 4. A-fib with RVR--converted to NSR; on amio 5. Hyponatremia Hemodynamically stable. No recurrent AF Remains euvolemic on exam Stable renal function. Sodium stable Continue to optimize HF regimen. -- Continue Entresto 24-26 mg BID. Continue current metoprolol 25mg BID. Toprol XL on discharge -- Starting empagliflozin 10mg today -- Continue digoxin. -- Possibly add spironolactone 12.5 mg tomorrow if BP allows -- Continue maintenance Lasix 40 mg daily -- continue rhythm control with amiodarone 200mg daily. Will discontinue as an outpatient Can transition Lovenox back to Xarelto -- Continue monitor to Na. If downtrends would stop citalopram and consider restarting tolvaptan. Appreciate ICU and hospital medicine care. Admission and Anticipated Discharge Date Admission Date: January 20, 2024 Subjective No issues overnight. Denies breathing difficulty. Does report some increased secretions around his trach. Denies any chest pain. Hoping trach can be decannulated today. Telemetry reviewedhas remained in sinus rhythm since approximately 730 yesterday morning. No additional events. Review of Systems Review of Systems: All systems reviewed & are unremarkable except as noted in HPI & below Physical Exam Physical Exam: General: comfortable, HEENT: Sclerae anicteric Lungs: Coarse, no crackles Cardiac: Regular, no murmurs Vascular: 2+ radial pulses Abdomen: Soft Extremities: warm, no significant edema Results & Data Vital Signs (Past 12 Hours) Vital Signs Temp Pulse Resp BP Pulse Ox 02/08/24 06:00 122/72 02/08/24 05:39 65 17 100 02/08/24 05:00 63 12 100 02/08/24 05:00 102/69 02/08/24 04:03 65 16 100 02/08/24 04:00 98.1 F 118/72 02/08/24 03:00 127/75 02/08/24 03:00 67 20 100 02/08/24 02:00 118/74 02/08/24 01:57 70 17 100 02/08/24 01:00 119/64 02/08/24 00:48 66 14 100 02/08/24 00:00 100/67 02/08/24 00:00 100/02/08/24 00:00 100/02/08/24 00:00 97.9 F 67 16 100 02/07/24 23:08 66 02/07/24 23:00 126/66 02/07/24 23:00 126/66 02/07/24 23:00 126/02/07/24 23:00 67 19 100 02/07/24 22:03 66 20 96 02/07/24 22:00 10502/07/24 22:00 105/02/07/24 21:57 97.7 F 02/07/24 21:51 66 12 95 PG Care Time/CCT Total # of Minutes Spent Total Time Spent with Patient: Total time spent is greater than 50% in coordination of care (as documented) at patient's floor/unit and/or counseling patient: Coding Level of Care Code 08026 SUB INP/OBS CARE 2/35MIN Diagnoses Acute on chronic HFrEF (heart failure with reduced ejection fraction) I50.23
--- NOTE | 2024-02-08 12:43 | Hospitalist Progress Note ---
Date of Service February 08, 2024 Assessment & Plan (1) Respiratory failure: Plan: He presented with acute hypoxic respiratory failure requiring ventilator support. Tracheostomy placed January 25 and removed today, February 07. Oxygen per nasal cannula if needed. Appreciate pulmonology consultation and recommendations. (2) Atrial fibrillation with rapid ventricular response: Plan: Earlier this admission. He is now in normal sinus rhythm. He is on Cardizem, Amiodarone, digoxin and metoprolol. Lovenox subcu has been switched to oral Xarelto. Appreciate cardiology consultation recommendations. (3) Hyponatremia: Plan: With hypoosmolarity. 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 Sodium currently 127 and patient appears to be asymptomatic. Serial labs. Fluid restriction. Tolvaptan ordered by nephrology. He is also on Lasix. (4) Acute on chronic HFrEF (heart failure with reduced ejection fraction): Plan: ECHO showed EF15-20% with severe dyskinesia. Cardiac cath done 02/03 showed clean coronaries. Continue Lasix. Monitor I/O (5) Aspiration pneumonia: Plan: CT scan of the chest showed evidence of possible aspiration pneumonia. Currently on Zosyn for 7 days through February 07. Chest x-ray done today, February 07, reveals right upper lobe opacities from the pneumonia which will eventually resolve (6) Non-ischemic cardiomyopathy: Plan: Left heart catheterization completed earlier this admission with no evidence of critical coronary disease (7) History of alcohol abuse: Plan: No evidence of alcohol withdrawal symptoms this admission. Supportive care Plan Transfer out of ICU today, February 07. OT and PT assessments requested. He will need rehab placement at the time of discharge at this week. He no longer needs LTAC consideration since the tracheostomy has been removed Admission and Anticipated Discharge Date Admission Date: January 20, 2024 Subjective Stable and doing well. He has had his tracheostomy removed along with the NG tube and tube feedings. Subcutaneous Lovenox has been switched to Xarelto. Chest x-ray looks good with resolving aspiration pneumonia opacities. He will be transferred out of the ICU todayFebruary 07 Review of Systems 2 Review of Systems: Constitutionalno fever or chills ENTno blurred vision, no double vision, no epistaxis, no sore throat Respiratoryno cough, no wheezing, no shortness of breath Cardiacno palpitations, no chest pain, no syncope Suyapa nausea, vomiting, diarrhea, melena, hematochezia GUno urinary retention, no urinary incontinence, no dysuria, no hematuria Musculoskeletalno joint pain, no muscle tenderness Skinno bruising, no rashes, no pruritus Neurono isolated weakness, no paresthesia, no weakness Psychno depression, no anxiety Physical Exam 2 Physical Exam: General-alert and oriented x3, no fever, no chills HEENT-head atraumatic and normocephalic, pupils equal and reactive to light, extraocular muscles intact Neck-no lymphadenopathy or thyromegaly, trachea midline. Tracheostomy in place at the time of my rounds earlier today Chest-scattered bilateral rhonchi. No inspiratory rales. No wheezing Cardiac-regular rate and rhythm, normal S1 and S2 Abdomen-normal bowel sounds, no hepatosplenomegaly Extremities-no cyanosis, clubbing, or edema Neuro-cranial nerves II through XII intact, motor and sensory function within normal limits, strength symmetrical, no focal deficits Psych-normal affect, normal mood Results & Data Results & Data Vital Signs (Past 12 Hours) Vital Signs Temp Pulse Resp BP Pulse Ox O2 Del Method 02/08/24 10:33 36.6 C 02/08/24 10:04 74 02/08/24 10:00 74 24 145/76 H 98 02/08/24 09:00 79 21 134/85 95 02/08/24 08:00 78 17 119/71 96 Trach Collar 02/08/24 08:00 Trach Collar 02/08/24 07:00 71 14 127/76 100 02/08/24 06:00 122/72 02/08/24 05:39 65 17 100 02/08/24 05:00 63 12 100 02/08/24 05:00 102/69 02/08/24 04:03 65 16 100 02/08/24 04:00 36.7 C 118/72 02/08/24 03:00 127/75 02/08/24 03:00 67 20 100 02/08/24 02:00 118/74 02/08/24 01:57 70 17 100 02/08/24 01:00 119/64 02/08/24 00:48 66 14 100 Laboratory Results 02/08/24 03:55 02/08/24 03:55 PG Care Time/CCT Total # of Minutes Spent Total Time Spent with Patient: Total time spent is greater than 50% in coordination of care (as documented) at patient's floor/unit and/or counseling patient: Coding Level of Care Code 45430 SUB INP/OBS CARE 3/50MIN Diagnoses Respiratory failure J96.90 Atrial fibrillation with rapid ventricular response I48.91 Hyponatremia E87.1 Acute on chronic HFrEF (heart failure with reduced ejection fraction) I50.23 Aspiration pneumonia J69.0 Non-ischemic cardiomyopathy I42.8 History of alcohol abuse F10.11
[2024-02-08] MEDS: RIVAROXABAN 20 MG TAB PO SCH (20:16)
[2024-02-08] MEDS ORDERED: CITALOPRAM 20 MG TAB PO SCH (21:00)
[2024-02-08] MEDS ORDERED: VALSARTAN/SACUBITRIL 26/24MG TAB PO SCH (21:00)
[2024-02-09 04:36] LABS: Basophils % (auto) 1.4 %; Eosinophils # (auto) 0.16 K/uL (0.00-0.50); Eosinophils % (auto) 2.3 %; Hematocrit (blood only) 38.3 % (42.0-52.0); Hemoglobin 13.8 g/dl (14.0-18.0); Immature Granulocytes % (auto) 1.4 %; Lymphocytes # (auto) 1.63 K/uL (1.20-3.40); Lymphocytes % (auto) 23.2 %; Mean Corpuscular Hemoglobin 34.3 pg (25.0-34.0); Mean Corpuscular Volume 95.3 fL (80.0-100.0); Mean Platelet Volume 8.7 fL (9.4-12.4); Monocytes # (auto) 0.76 K/uL (0.11-0.59); Monocytes % (auto) 10.8 %; Neutrophils # (auto) 4.28 K/uL (1.40-6.50); Neutrophils % (auto) 60.9 %; Platelet Count 547 K/uL (130-400); RDW Coefficient of Variation 12.5 % (11.5-14.5); RDW Standard Deviation 43.8 fL (36.4-46.3); Red Blood Count 4.02 M/uL (4.70-6.10); White Blood Count 7.03 K/ul (4.8-10.8)
[2024-02-09 04:51] LABS: BUN Creatinine Ratio 22.6 (10-20); Calcium 8.4 mg/dl (8.6-10.3); Creatinine Clr Calc Pharmacy 103.6 ml/min; Est GFR (African American) 126.7 ml/min; Est GFR (Non-African American) 109.3 ml/min
[2024-02-09] MEDS: LANSOPRAZOLE 30 MG SOLTAB PO SCH (08:34)
[2024-02-09] MEDS: SPIRONOLACTONE 25 MG TAB PO SCH (08:34)
[2024-02-09] MEDS: MAGNESIUM OXIDE 400 MG TAB PO SCH (08:34)
--- NOTE | 2024-02-09 14:17 | Hospitalist Progress Note ---
Date of Service February 09, 2024 Assessment & Plan (1) Respiratory failure: Plan: He presented with acute hypoxic respiratory failure requiring ventilator support. Tracheostomy placed January 25 and removed today, February 07. Oxygen has now been weaned off. He is on room air. Appreciate pulmonology consultation and recommendations. (2) Atrial fibrillation with rapid ventricular response: Plan: Earlier this admission. He is now in normal sinus rhythm. He is on Cardizem, Amiodarone, digoxin and metoprolol. Lovenox subcu has been switched to oral Xarelto. Digoxin level 1.4 today, February 08. Appreciate cardiology consultation recommendations. (3) Hyponatremia: Plan: With hypoosmolarity. 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 Sodium currently 126 and stable. Currently asymptomatic. Serial labs. Fluid restriction. Tolvaptan ordered by nephrology. He is also on Lasix. (4) Acute on chronic HFrEF (heart failure with reduced ejection fraction): Plan: ECHO showed EF15-20% with severe dyskinesia. Cardiac cath done 02/03 showed no critical coronary stenosis. Continue Lasix. Monitor I/O (5) Aspiration pneumonia: Plan: CT scan of the chest showed evidence of possible aspiration pneumonia. Currently on Zosyn which will be discontinued tomorrow, February 09. Chest x-ray done on February 07 revealed right upper lobe opacities from the pneumonia which will eventually resolve (6) Non-ischemic cardiomyopathy: Plan: Left heart catheterization completed earlier this admission with no evidence of critical coronary disease (7) History of alcohol abuse: Plan: No evidence of alcohol withdrawal symptoms this admission. Supportive care Plan Continue OT and PT. Awaiting placement at [facility]. Admission and Anticipated Discharge Date Admission Date: January 20, 2024 Subjective Alert and oriented. No acute distress. Tracheostomy was removed yesterday, February 07 and he is now on room air. He will remain on Zosyn for another day. Lovenox has been switched to oral Xarelto. Sodium is low but stable and the patient is asymptomatic. Digoxin level 1.4. IPR placement pending Review of Systems 2 Review of Systems: Constitutionalno fever or chills ENTno blurred vision, no double vision, no epistaxis, no sore throat Respiratoryno cough, no wheezing, no shortness of breath Cardiacno palpitations, no chest pain, no syncope Suyapa nausea, vomiting, diarrhea, melena, hematochezia GUno urinary retention, no urinary incontinence, no dysuria, no hematuria Musculoskeletalno joint pain, no muscle tenderness Skinno bruising, no rashes, no pruritus Neurono isolated weakness, no paresthesia, no weakness Psychno depression, no anxiety Physical Exam 2 Physical Exam: General-alert and oriented x3, no fever, no chills HEENT-head atraumatic and normocephalic, pupils equal and reactive to light, extraocular muscles intact Neck-no lymphadenopathy or thyromegaly, trachea midline. Tracheostomy in place at the time of my rounds earlier today Chest-scattered bilateral rhonchi. No inspiratory rales. No wheezing Cardiac-regular rate and rhythm, normal S1 and S2 Abdomen-normal bowel sounds, no hepatosplenomegaly Extremities-no cyanosis, clubbing, or edema Neuro-cranial nerves II through XII intact, motor and sensory function within normal limits, strength symmetrical, no focal deficits Psych-normal affect, normal mood Results & Data Results & Data Vital Signs (Past 12 Hours) Vital Signs Temp Pulse Pulse Resp BP BP Pulse Ox 02/09/24 12:26 36.5 C 72 20 92/55 L 97 02/09/24 10:52 69 02/09/24 08:30 36.4 C L 89 20 02/09/24 08:24 149/77 H 94 02/09/24 08:03 91 H 29 H 02/09/24 08:00 02/09/24 07:00 77 20 94 02/09/24 06:50 75 02/09/24 06:45 75 14 95 02/09/24 04:00 75 20 95 02/09/24 04:00 134/85 02/09/24 04:00 36.8 C 134/85 02/09/24 04:00 134/85 02/09/24 03:09 78 27 H 94 O2 Del Method 02/09/24 12:26 Room Air 02/09/24 10:52 02/09/24 08:30 02/09/24 08:24 Room Air 02/09/24 08:03 02/09/24 08:00 Room Air 02/09/24 07:00 02/09/24 06:50 02/09/24 06:45 02/09/24 04:00 02/09/24 04:00 02/09/24 04:00 02/09/24 04:00 02/09/24 03:09 Laboratory Results 02/09/24 03:57 02/09/24 03:57 PG Care Time/CCT Total # of Minutes Spent Total Time Spent with Patient: Total time spent is greater than 50% in coordination of care (as documented) at patient's floor/unit and/or counseling patient: Coding Level of Care Code 52608 SUB INP/OBS CARE 3/50MIN Diagnoses Respiratory failure J96.90 Atrial fibrillation with rapid ventricular response I48.91 Hyponatremia E87.1 Acute on chronic HFrEF (heart failure with reduced ejection fraction) I50.23 Aspiration pneumonia J69.0 Non-ischemic cardiomyopathy I42.8 History of alcohol abuse F10.11
[2024-02-10 06:19] LABS: Basophils # (auto) 0.11 K/uL (0.00-0.20); Basophils % (auto) 1.5 %; Eosinophils # (auto) 0.19 K/uL (0.00-0.50); Eosinophils % (auto) 2.6 %; Hematocrit (blood only) 39.2 % (42.0-52.0); Hemoglobin 13.6 g/dl (14.0-18.0); Immature Granulocytes # (auto) 0.12 K/uL (0.01-0.20); Immature Granulocytes % (auto) 1.6 %; Lymphocytes # (auto) 1.71 K/uL (1.20-3.40); Lymphocytes % (auto) 23.1 %; Mean Corpuscular Hemoglobin 33.2 pg (25.0-34.0); Mean Corpuscular Hgb Conc 34.7 g/dL (32.0-36.0); Mean Corpuscular Volume 95.6 fL (80.0-100.0); Mean Platelet Volume 8.6 fL (9.4-12.4); Monocytes # (auto) 0.91 K/uL (0.11-0.59); Monocytes % (auto) 12.3 %; Neutrophils # (auto) 4.35 K/uL (1.40-6.50); Neutrophils % (auto) 58.9 %; Platelet Count 511 K/uL (130-400); RDW Coefficient of Variation 12.5 % (11.5-14.5); RDW Standard Deviation 44.2 fL (36.4-46.3); White Blood Count 7.39 K/ul (4.8-10.8)
[2024-02-10 06:34] LABS: BUN Creatinine Ratio 23.7 (10-20); Calcium 8.5 mg/dl (8.6-10.3); Creatinine Clr Calc Pharmacy 108.9 ml/min; Potassium 3.9 mmol/L (3.5-5.1)
--- NOTE | 2024-02-10 12:33 | Hospitalist Progress Note ---
Date of Service February 10, 2024 Assessment & Plan (1) Respiratory failure: Plan: He presented with acute hypoxic respiratory failure requiring ventilator support. Tracheostomy placed January 25 and subsequently removed on February 07. Oxygen has now been weaned off. He is on room air. Appreciate pulmonology consultation and recommendations. (2) Atrial fibrillation with rapid ventricular response: Plan: Earlier this admission. He is now in normal sinus rhythm. He is on Cardizem, Amiodarone, digoxin and metoprolol. Lovenox subcu has been switched to oral Xarelto. Appreciate cardiology consultation recommendations. (3) Hyponatremia: Plan: With hypoosmolarity. 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 Sodium currently 128 and stable. Currently asymptomatic. Serial labs. Fluid restriction. Tolvaptan ordered by nephrology. He is also on Lasix. (4) Acute on chronic HFrEF (heart failure with reduced ejection fraction): Plan: ECHO showed EF15-20% with severe dyskinesia. Cardiac cath done 02/03 showed no critical coronary stenosis. Continue Lasix. Monitor I/O (5) Aspiration pneumonia: Plan: CT scan of the chest showed evidence of possible aspiration pneumonia. He has completed his course of Zosyn therapy. Chest x-ray done on February 07 revealed right upper lobe opacities from the pneumonia which will eventually resolve (6) Non-ischemic cardiomyopathy: Plan: Left heart catheterization completed earlier this admission with no evidence of critical coronary disease (7) History of alcohol abuse: Plan: No evidence of alcohol withdrawal symptoms this admission. Supportive care Plan Continue OT and PT. Stable for discharge to [facility] when bed is available Admission and Anticipated Discharge Date Admission Date: January 20, 2024 Subjective Medically stable. Sodium 128 this morning. He remains on room air. Awaiting rehab placement at [facility] Review of Systems 2 Review of Systems: Constitutionalno fever or chills ENTno blurred vision, no double vision, no epistaxis, no sore throat Respiratoryno cough, no wheezing, no shortness of breath Cardiacno palpitations, no chest pain, no syncope Suyapa nausea, vomiting, diarrhea, melena, hematochezia GUno urinary retention, no urinary incontinence, no dysuria, no hematuria Musculoskeletalno joint pain, no muscle tenderness Skinno bruising, no rashes, no pruritus Neurono isolated weakness, no paresthesia, no weakness Psychno depression, no anxiety Physical Exam 2 Physical Exam: General-alert and oriented x3, no fever, no chills HEENT-head atraumatic and normocephalic, pupils equal and reactive to light, extraocular muscles intact Neck-no lymphadenopathy or thyromegaly, trachea midline. Tracheostomy in place at the time of my rounds earlier today Chest-scattered bilateral rhonchi. No inspiratory rales. No wheezing Cardiac-regular rate and rhythm, normal S1 and S2 Abdomen-normal bowel sounds, no hepatosplenomegaly Extremities-no cyanosis, clubbing, or edema Neuro-cranial nerves II through XII intact, motor and sensory function within normal limits, strength symmetrical, no focal deficits Psych-normal affect, normal mood Results & Data Results & Data Vital Signs (Past 12 Hours) Vital Signs Temp Pulse Pulse Pulse Resp BP BP 02/10/24 12:15 36.5 C 77 19 108/72 02/10/24 10:27 92 H 02/10/24 09:06 36.5 C 02/10/24 08:36 92 H 20 157/84 H 02/10/24 08:00 02/10/24 07:36 75 02/10/24 03:46 36.5 C 69 18 139/74 Pulse Ox O2 Del Method 02/10/24 12:15 95 Room Air 02/10/24 10:27 02/10/24 09:06 02/10/24 08:36 92 Room Air 02/10/24 08:00 Room Air 02/10/24 07:36 02/10/24 03:46 95 Room Air Laboratory Results 02/10/24 05:45 02/10/24 05:45 PG Care Time/CCT Total # of Minutes Spent Total Time Spent with Patient: Total time spent is greater than 50% in coordination of care (as documented) at patient's floor/unit and/or counseling patient: Coding Level of Care Code 12486 SUB INP/OBS CARE 2/35MIN Diagnoses Respiratory failure J96.90 Atrial fibrillation with rapid ventricular response I48.91 Hyponatremia E87.1 Acute on chronic HFrEF (heart failure with reduced ejection fraction) I50.23 Aspiration pneumonia J69.0 Non-ischemic cardiomyopathy I42.8 History of alcohol abuse F10.11
[2024-02-11 06:15] LABS: Basophils # (auto) 0.13 K/uL (0.00-0.20); Basophils % (auto) 1.7 %; Eosinophils # (auto) 0.16 K/uL (0.00-0.50); Eosinophils % (auto) 2.1 %; Hemoglobin 14.2 g/dl (14.0-18.0); Immature Granulocytes # (auto) 0.12 K/uL (0.01-0.20); Immature Granulocytes % (auto) 1.6 %; Lymphocytes # (auto) 1.66 K/uL (1.20-3.40); Mean Corpuscular Hemoglobin 33.3 pg (25.0-34.0); Mean Corpuscular Hgb Conc 35.5 g/dL (32.0-36.0); Mean Corpuscular Volume 93.9 fL (80.0-100.0); Mean Platelet Volume 8.7 fL (9.4-12.4); Monocytes # (auto) 1.06 K/uL (0.11-0.59); Neutrophils # (auto) 4.42 K/uL (1.40-6.50); Neutrophils % (auto) 58.6 %; Platelet Count 502 K/uL (130-400); RDW Coefficient of Variation 12.6 % (11.5-14.5); RDW Standard Deviation 43.6 fL (36.4-46.3); Red Blood Count 4.26 M/uL (4.70-6.10); White Blood Count 7.55 K/ul (4.8-10.8)
[2024-02-11 06:41] LABS: BUN Creatinine Ratio 26.4 (10-20); Calcium 8.7 mg/dl (8.6-10.3); Creatinine Clr Calc Pharmacy 121.2 ml/min; Potassium 3.9 mmol/L (3.5-5.1)
--- NOTE | 2024-02-11 10:08 | XRay Report ---
XR chest 1V portable CLINICAL HISTORY: aspiration pneumonia, CHF COMPARISON STUDY: Chest radiograph February 08, 2024. FINDINGS: Tracheostomy and feeding tubes have been removed. Cardiomediastinal silhouette is stable. T here is no pneumothorax or pleural effusion. Right upper lung airspace opacity persists. Additional b ilateral airspace opacities have slightly improved. Right hilar prominence is noted. Pulmonary vascul arity is normal. IMPRESSION: 1. Persistent right upper lobe airspace opacity, similar to prior exam. The additional bilateral airs pace opacities have slightly improved. The findings favor mild improvement in multifocal pneumonia. C ontinued radiographic follow-up to ensure resolution is recommended. 2. Right hilar prominence. This may be related to reactive lymphadenopathy. This can be assessed on f ollow-up exams. ACT 112: Negative or not required by law. Electronically signed by: Wong Montenegro M.D. 02/11/2024 10:07 AM
--- NOTE | 2024-02-11 13:06 | Hospitalist Progress Note ---
Date of Service February 11, 2024 Assessment & Plan (1) Respiratory failure: Plan: He presented with acute hypoxic respiratory failure requiring ventilator support. Tracheostomy placed January 25 and subsequently removed on February 07. Oxygen has now been weaned off. He is on room air. Appreciate pulmonology consultation and recommendations. (2) Atrial fibrillation with rapid ventricular response: Plan: Earlier this admission. He is now in normal sinus rhythm. He is on Cardizem, Amiodarone, digoxin and metoprolol. Lovenox subcu has been switched to oral Xarelto. Appreciate cardiology consultation recommendations. (3) Hyponatremia: Plan: With hypoosmolarity. 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 Sodium currently 129 and stable. Serum osmolarity remains low at 269. Currently asymptomatic. Serial labs. Fluid restriction. (4) Acute on chronic HFrEF (heart failure with reduced ejection fraction): Plan: ECHO showed EF15-20% with severe dyskinesia. Cardiac cath done 02/03 showed no critical coronary stenosis. Continue Lasix. Monitor I/O (5) Aspiration pneumonia: Plan: CT scan of the chest showed evidence of possible aspiration pneumonia. He has completed his course of Zosyn therapy. Chest x-ray done today, February 10, looks better. (6) Non-ischemic cardiomyopathy: Plan: Left heart catheterization completed earlier this admission with no evidence of critical coronary disease (7) History of alcohol abuse: Plan: No evidence of alcohol withdrawal symptoms this admission. Supportive care Plan Continue OT and PT. Stable for discharge to [facility] when bed is available Admission and Anticipated Discharge Date Admission Date: January 20, 2024 Subjective Alert and oriented. No distress. Chest x-ray done today, February 10, looks better. Serum osmolarity remains low at 269. Continue fluid restriction. Sodium 129 today, February 10. Lovenox has been switched to oral Xarelto. Antibiotics have been discontinued. Waiting for placement at [facility]. Review of Systems 2 Review of Systems: Constitutionalno fever or chills ENTno blurred vision, no double vision, no epistaxis, no sore throat Respiratoryno cough, no wheezing, no shortness of breath Cardiacno palpitations, no chest pain, no syncope Suyapa nausea, vomiting, diarrhea, melena, hematochezia GUno urinary retention, no urinary incontinence, no dysuria, no hematuria Musculoskeletalno joint pain, no muscle tenderness Skinno bruising, no rashes, no pruritus Neurono isolated weakness, no paresthesia, no weakness Psychno depression, no anxiety Physical Exam 2 Physical Exam: General-alert and oriented x3, no fever, no chills HEENT-head atraumatic and normocephalic, pupils equal and reactive to light, extraocular muscles intact Neck-no lymphadenopathy or thyromegaly, trachea midline. Tracheostomy in place at the time of my rounds earlier today Chest-scattered bilateral rhonchi. No inspiratory rales. No wheezing Cardiac-regular rate and rhythm, normal S1 and S2 Abdomen-normal bowel sounds, no hepatosplenomegaly Extremities-no cyanosis, clubbing, or edema Neuro-cranial nerves II through XII intact, motor and sensory function within normal limits, strength symmetrical, no focal deficits Psych-normal affect, normal mood Results & Data Results & Data Vital Signs (Past 12 Hours) Vital Signs Temp Pulse Pulse Resp BP BP Pulse Ox 02/11/24 11:18 36.7 C 74 19 105/66 96 02/11/24 10:14 86 02/11/24 09:00 36.5 C 87 19 104/68 95 02/11/24 08:26 36.8 C 83 18 124/77 02/11/24 08:15 81 02/11/24 08:00 02/11/24 03:26 36.6 C 77 17 122/76 95 O2 Del Method 02/11/24 11:18 Room Air 02/11/24 10:14 02/11/24 09:00 Room Air 02/11/24 08:26 02/11/24 08:15 02/11/24 08:00 Room Air 02/11/24 03:26 Room Air Laboratory Results 02/11/24 05:19 02/11/24 05:19 PG Care Time/CCT Total # of Minutes Spent Total Time Spent with Patient: Total time spent is greater than 50% in coordination of care (as documented) at patient's floor/unit and/or counseling patient: Coding Level of Care Code 72200 SUB INP/OBS CARE 3/50MIN Diagnoses Respiratory failure J96.90 Atrial fibrillation with rapid ventricular response I48.91 Hyponatremia E87.1 Acute on chronic HFrEF (heart failure with reduced ejection fraction) I50.23 Aspiration pneumonia J69.0 Non-ischemic cardiomyopathy I42.8 History of alcohol abuse F10.11
[2024-02-11] MEDS: NICOTINE 2 MG PO SCH (20:25)
[2024-02-12 06:57] LABS: BUN Creatinine Ratio 25.4 (10-20); Calcium 8.7 mg/dl (8.6-10.3); Creatinine Clr Calc Pharmacy 99.8 ml/min; Potassium 4.3 mmol/L (3.5-5.1)
--- NOTE | 2024-02-12 12:31 | Hospitalist Progress Note ---
Date of Service February 12, 2024 Assessment & Plan (1) Respiratory failure: Plan: He presented with acute hypoxic respiratory failure requiring ventilator support. Tracheostomy placed January 25 and subsequently removed on February 07. Oxygen has now been weaned off. He is on room air. Appreciate pulmonology consultation and recommendations. (2) Atrial fibrillation with rapid ventricular response: Plan: Earlier this admission. He is now in normal sinus rhythm. He is on Cardizem, Amiodarone, digoxin and metoprolol. Lovenox subcu has been switched to oral Xarelto. Appreciate cardiology consultation recommendations. (3) Hyponatremia: Plan: With hypoosmolarity. 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 Sodium currently 130 and stable. Serum osmolarity remains low at 269. Currently asymptomatic. Serial labs. Continue fluid restriction. (4) Acute on chronic HFrEF (heart failure with reduced ejection fraction): Plan: ECHO showed EF15-20% with severe dyskinesia. Cardiac cath done 02/03 showed no critical coronary stenosis. Continue Lasix. Monitor I/O (5) Aspiration pneumonia: Plan: CT scan of the chest showed evidence of possible aspiration pneumonia. He has completed his course of Zosyn therapy. Chest x-ray done today, February 10, looks better. (6) Non-ischemic cardiomyopathy: Plan: Left heart catheterization completed earlier this admission with no evidence of critical coronary disease (7) History of alcohol abuse: Plan: No evidence of alcohol withdrawal symptoms this admission. Supportive care Plan Continue OT and PT. Stable for discharge to [facility] when bed is available Admission and Anticipated Discharge Date Admission Date: January 20, 2024 Subjective Alert and oriented. No new problems. Sodium improved to 130 now. Medically stable. Review of Systems 2 Review of Systems: Constitutionalno fever or chills ENTno blurred vision, no double vision, no epistaxis, no sore throat Respiratoryno cough, no wheezing, no shortness of breath Cardiacno palpitations, no chest pain, no syncope Suyapa nausea, vomiting, diarrhea, melena, hematochezia GUno urinary retention, no urinary incontinence, no dysuria, no hematuria Musculoskeletalno joint pain, no muscle tenderness Skinno bruising, no rashes, no pruritus Neurono isolated weakness, no paresthesia, no weakness Psychno depression, no anxiety Physical Exam 2 Physical Exam: General-alert and oriented x3, no fever, no chills HEENT-head atraumatic and normocephalic, pupils equal and reactive to light, extraocular muscles intact Neck-no lymphadenopathy or thyromegaly, trachea midline. Tracheostomy in place at the time of my rounds earlier today Chest-scattered bilateral rhonchi. No inspiratory rales. No wheezing Cardiac-regular rate and rhythm, normal S1 and S2 Abdomen-normal bowel sounds, no hepatosplenomegaly Extremities-no cyanosis, clubbing, or edema Neuro-cranial nerves II through XII intact, motor and sensory function within normal limits, strength symmetrical, no focal deficits Psych-normal affect, normal mood Results & Data Results & Data Vital Signs (Past 12 Hours) Vital Signs Temp Pulse Pulse Resp BP Pulse Ox O2 Del Method 02/12/24 11:18 36.7 C 83 18 113/75 96 Room Air 02/12/24 10:34 78 02/12/24 09:05 102 H 02/12/24 08:15 36.8 C 83 19 105/69 94 Room Air 02/12/24 03:37 36.8 C 78 14 114/70 96 Room Air Laboratory Results 02/11/24 05:19 02/12/24 06:11 PG Care Time/CCT Total # of Minutes Spent Total Time Spent with Patient: Total time spent is greater than 50% in coordination of care (as documented) at patient's floor/unit and/or counseling patient: Coding Level of Care Code 34298 SUB INP/OBS CARE 2/35MIN Diagnoses Respiratory failure J96.90 Atrial fibrillation with rapid ventricular response I48.91 Hyponatremia E87.1 Acute on chronic HFrEF (heart failure with reduced ejection fraction) I50.23 Aspiration pneumonia J69.0 Non-ischemic cardiomyopathy I42.8 History of alcohol abuse F10.11
[2024-02-13 06:45] LABS: BUN Creatinine Ratio 25.8 (10-20); Calcium 8.9 mg/dl (8.6-10.3); Creatinine Clr Calc Pharmacy 89.2 ml/min; Potassium 4.2 mmol/L (3.5-5.1)
--- NOTE | 2024-02-13 14:15 | Hospitalist Progress Note ---
Date of Service February 13, 2024 Assessment & Plan (1) Respiratory failure: Plan: He presented with acute hypoxic respiratory failure requiring ventilator support. Tracheostomy placed January 25 and subsequently removed on February 07. Oxygen has now been weaned off. He is on room air. Appreciate pulmonology consultation and recommendations. (2) Atrial fibrillation with rapid ventricular response: Plan: Earlier this admission. He is now in normal sinus rhythm. He is on Cardizem, Amiodarone, digoxin and metoprolol. Lovenox subcu has been switched to oral Xarelto. Appreciate cardiology consultation recommendations. (3) Hyponatremia: Plan: With hypoosmolarity. 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 Sodium currently 130 and stable. Serum osmolarity remains low at 269. Currently asymptomatic. Serial labs. Continue fluid restriction. (4) Acute on chronic HFrEF (heart failure with reduced ejection fraction): Plan: ECHO showed EF15-20% with severe dyskinesia. Cardiac cath done 02/03 showed no critical coronary stenosis. Continue Lasix. Monitor I/O (5) Aspiration pneumonia: Plan: CT scan of the chest showed evidence of possible aspiration pneumonia. He has completed his course of Zosyn therapy. Chest x-ray will be repeated again tomorrow, February 13 (6) Non-ischemic cardiomyopathy: Plan: Left heart catheterization completed earlier this admission with no evidence of critical coronary disease (7) History of alcohol abuse: Plan: No evidence of alcohol withdrawal symptoms this admission. Supportive care Plan Continue OT and PT. Stable for discharge to [facility] when bed is available Admission and Anticipated Discharge Date Admission Date: January 20, 2024 Subjective Alert and oriented. No new problems. Will repeat portable chest x-ray again tomorrow, February 13. Opacities from aspiration pneumonia will eventually resolved. Awaiting [facility] placement Review of Systems 2 Review of Systems: Constitutionalno fever or chills ENTno blurred vision, no double vision, no epistaxis, no sore throat Respiratoryno cough, no wheezing, no shortness of breath Cardiacno palpitations, no chest pain, no syncope Suyapa nausea, vomiting, diarrhea, melena, hematochezia GUno urinary retention, no urinary incontinence, no dysuria, no hematuria Musculoskeletalno joint pain, no muscle tenderness Skinno bruising, no rashes, no pruritus Neurono isolated weakness, no paresthesia, no weakness Psychno depression, no anxiety Physical Exam 2 Physical Exam: General-alert and oriented x3, no fever, no chills HEENT-head atraumatic and normocephalic, pupils equal and reactive to light, extraocular muscles intact Neck-no lymphadenopathy or thyromegaly, trachea midline. Tracheostomy in place at the time of my rounds earlier today Chest-scattered bilateral rhonchi. No inspiratory rales. No wheezing Cardiac-regular rate and rhythm, normal S1 and S2 Abdomen-normal bowel sounds, no hepatosplenomegaly Extremities-no cyanosis, clubbing, or edema Neuro-cranial nerves II through XII intact, motor and sensory function within normal limits, strength symmetrical, no focal deficits Psych-normal affect, normal mood Results & Data Results & Data Vital Signs (Past 12 Hours) Vital Signs Temp Pulse Pulse Resp BP BP Pulse Ox 02/13/24 11:50 36.7 C 95 H 18 92/62 L 98 02/13/24 09:29 93 H 02/13/24 08:43 36.7 C 93 H 18 112/70 93 02/13/24 07:24 81 02/13/24 03:26 36.5 C 77 16 99/66 L 97 O2 Del Method 02/13/24 11:50 Room Air 02/13/24 09:29 02/13/24 08:43 Room Air 02/13/24 07:24 02/13/24 03:26 Room Air Laboratory Results 02/11/24 05:19 02/13/24 05:52 PG Care Time/CCT Total # of Minutes Spent Total Time Spent with Patient: Total time spent is greater than 50% in coordination of care (as documented) at patient's floor/unit and/or counseling patient: Coding Level of Care Code 14520 SUB INP/OBS CARE 2/35MIN Diagnoses Respiratory failure J96.90 Atrial fibrillation with rapid ventricular response I48.91 Hyponatremia E87.1 Acute on chronic HFrEF (heart failure with reduced ejection fraction) I50.23 Aspiration pneumonia J69.0 Non-ischemic cardiomyopathy I42.8 History of alcohol abuse F10.11
[2024-02-13] MEDS: ACETAMINOPHEN 325 MG TAB PO PRN (16:30)
[2024-02-14 07:01] LABS: BUN Creatinine Ratio 27.3 (10-20); Creatinine Clr Calc Pharmacy 106.4 ml/min
[2024-02-14] MEDS: DIGOXIN 0.25 MG TAB PO SCH (09:01)
--- NOTE | 2024-02-14 09:56 | XRay Report ---
XR chest 1V portable CLINICAL HISTORY: right pneumonia TECHNIQUE: Single frontal radiograph of the chest was obtained. Comparison: Comparison is made to chest radiograph 02/11/2024 FINDINGS: No lines and tubes are seen. The cardiomediastinal silhouette is normal. Previously noted opacities a re unchanged. No evidence of pleural effusion or pneumothorax. IMPRESSION: No significant interval change. ACT 112: Negative or not required by law. Electronically signed by: Abdias Hennessy M.D. 02/14/2024 9:53 AM
--- NOTE | 2024-02-14 15:29 | Hospitalist Progress Note ---
Date of Service February 14, 2024 Assessment & Plan (1) Respiratory failure: Plan: He presented with acute hypoxic respiratory failure requiring ventilator support after cardiac arrest. Was treated for aspiration pneumonia with Zosyn x 7 days Tracheostomy placed January 25 and subsequently removed on February 07. Oxygen has now been weaned off. He is on room air. Appreciate pulmonology consultation and recommendations. Chest x-ray on 02/13 with resolving pneumonia (2) Atrial fibrillation with rapid ventricular response: Plan: Presented with rapid atrial fibrillation and received IV amiodarone, converted to normal sinus rhythm and then had PEA arrest-CPR was performed, given epinephrine x 3, bicarbonate, and he was transferred to ICU Unclear whether he suffered a seizure versus stroke after being given amiodarone and cardioverting, but CT head negative earlier this admission. Likely cardiac arrest from cardiogenic shock He then suffered acute kidney injury and shock liver both of which are now improved He was weaned off pressors but was on the vent for quite some time-had a tracheostomy placed and now removed He remains in normal sinus rhythm and is on amiodarone, digoxin, metoprolol-will convert metoprolol tartrate to succinate prior to discharge Continues on Xarelto Continue to monitor on telemetry Follow-up with cardiology after discharge (3) Hyponatremia: Plan: With hypoosmolarity. Urine osmolality quite elevated in the 500s and 600s, urine sodium high at 101 Appears to be SIADH Does have heart failure but does not appear volume overloaded Continue home furosemide, spironolactone, Jardiance, Entresto Follow BMP-sodium fairly stable at 129 He has been off of his SSRI this admission-remain off (4) Acute on chronic HFrEF (heart failure with reduced ejection fraction): Plan: ECHO showed EF15-20% with severe dyskinesia. Cardiac cath done 02/03 showed no critical coronary stenosis. Continue Lasix, spironolactone, Entresto, Jardiance and will switch metoprolol tartrate to Toprol-XL. Monitor I/O, daily weights, low-sodium diet (5) Aspiration pneumonia: Plan: CT scan of the chest showed evidence of possible aspiration pneumonia and he had a fever. He has completed his course of Zosyn therapy. Chest x-ray February 13 appears improved Sputum cultures and BAL growing Janiya which is likely a colonizer-no need for treatment Respiratory viral bio fire panel was negative (6) History of alcohol abuse: Plan: No evidence of alcohol withdrawal symptoms this admission. Supportive care Plan DVT prophylaxis-Xarelto Disposition-continue OT and PT. Stable for discharge to [facility] when bed is available-medically stable at this time Admission and Anticipated Discharge Date Admission Date: January 20, 2024 Subjective Patient reports hoarse voice but otherwise doing pretty well. He is eating and drinking, moving his bowels. Had some shortness of breath with exertion while working with therapy recently but thinks he is very deconditioned. He also feels off balance and feels like he is going to fall backwards when he standing up. Denies chest pains or cough. No abdominal pains or nausea. Telemetry with normal sinus rhythm with rates in the 70s to 80s Physical Exam Constitutional: + thin; no acute distress ENMT: Mild erythema of posterior oropharynx but no exudate Neck: + abnormal visual inspection (Dressing i n place over tracheostomy site) Respiratory: normal respiratory effort; no cough Auscultation: + crackles (Right base); no rhonchi and no wheezes Cardiovascular: RRR, no murmur, no edema Gastrointestinal (Abdomen): normal bowel sounds, soft, nontender, no hepatosplenomegaly Skin: Small area of skin rash over right clavicle from previous telemetry lead sticker Psychiatric: A+Ox3, euthymic affect Results & Data Results & Data Vital Signs (Past 12 Hours) Vital Signs Temp Pulse Pulse Resp BP Pulse Ox O2 Del Method 02/14/24 11:31 36.7 C 74 17 102/67 96 Room Air 02/14/24 09:01 85 02/14/24 07:31 36.6 C 85 16 104/68 99 Room Air 02/14/24 07:26 86 02/14/24 03:50 36.7 C 79 14 99/65 L 96 Room Air Laboratory Results BMP, blood cultures, sputum and BAL cultures, chest x-ray reviewed PG Care Time/CCT Total # of Minutes Spent Total Time Spent with Patient: Total time spent is greater than 50% in coordination of care (as documented) at patient's floor/unit and/or counseling patient: Coding Level of Care Code 30274 SUB INP/OBS CARE 2/35MIN Diagnoses Respiratory failure J96.90 Atrial fibrillation with rapid ventricular response I48.91 Hyponatremia E87.1 Acute on chronic HFrEF (heart failure with reduced ejection fraction) I50.23 Aspiration pneumonia J69.0 History of alcohol abuse F10.11
[2024-02-15 05:12] LABS: Basophils % (auto) 1.5 %; Eosinophils # (auto) 0.24 K/uL (0.00-0.50); Eosinophils % (auto) 3.5 %; Hemoglobin 14.3 g/dl (14.0-18.0); Immature Granulocytes # (auto) 0.08 K/uL (0.01-0.20); Immature Granulocytes % (auto) 1.2 %; Lymphocytes # (auto) 1.76 K/uL (1.20-3.40); Mean Corpuscular Hemoglobin 34.1 pg (25.0-34.0); Mean Corpuscular Hgb Conc 35.8 g/dL (32.0-36.0); Mean Corpuscular Volume 95.5 fL (80.0-100.0); Mean Platelet Volume 8.8 fL (9.4-12.4); Monocytes # (auto) 0.87 K/uL (0.11-0.59); Monocytes % (auto) 12.9 %; Neutrophils # (auto) 3.72 K/uL (1.40-6.50); Neutrophils % (auto) 54.9 %; Platelet Count 366 K/uL (130-400); RDW Coefficient of Variation 12.7 % (11.5-14.5); RDW Standard Deviation 44.6 fL (36.4-46.3); Red Blood Count 4.19 M/uL (4.70-6.10); White Blood Count 6.77 K/ul (4.8-10.8)
[2024-02-15 05:31] LABS: Albumin Globulin Ratio 1.1 (0.9-2); Albumin Level 3.2 gm/dl (3.4-5.0); BUN Creatinine Ratio 23.4 (10-20); Bilirubin,Total 0.7 mg/dl (0.2-1.0); Calcium 8.8 mg/dl (8.6-10.3); Creatinine Clr Calc Pharmacy 91.5 ml/min; Globulin 2.9 gm/dl (2.5-4.0); Magnesium 1.8 mg/dl (1.7-2.4); Potassium 3.7 mmol/L (3.5-5.1); Total Protein 6.1 gm/dl (6.0-8.3)
[2024-02-15] MEDS: METOPROLOL SUCC 50MG EXT REL TAB PO SCH (09:14)
[2024-02-15] MEDS: POTASSIUM CHLORIDE CRTAB 20 MEQ TABCR PO STA (12:03)
[2024-02-15] MEDS: MAGNESIUM SULFATE / D5W 1 GM/100 ML BAG IV ONE (12:03)
[2024-02-15] MEDS ORDERED: POLYETHYLENE (MIRALAX) 17 GM PACK PO PRN (16:04)
--- NOTE | 2024-02-15 16:04 | Hospitalist Progress Note ---
Date of Service February 15, 2024 Assessment & Plan (1) Respiratory failure: Plan: He presented with acute hypoxic respiratory failure requiring ventilator support after cardiac arrest. Was treated for aspiration pneumonia with Zosyn x 7 days Tracheostomy placed January 25 and subsequently removed on February 07. Oxygen has now been weaned off. He is on room air. Appreciate pulmonology consultation and recommendations. Chest x-ray on 02/13 with resolving pneumonia On diuretics for any pulm edema component as well (2) Atrial fibrillation with rapid ventricular response: Plan: Presented with rapid atrial fibrillation and received IV amiodarone, converted to normal sinus rhythm and then had PEA arrest-CPR was performed, given epinephrine x 3, bicarbonate, and he was transferred to ICU Unclear whether he suffered a seizure versus stroke after being given amiodarone and cardioverting, but CT head negative earlier this admission. Likely cardiac arrest from cardiogenic shock He then suffered acute kidney injury and shock liver both of which are now improved He was weaned off pressors but was on the vent for quite some time-had a tracheostomy placed and now removed He remains in normal sinus rhythm and is on amiodarone, digoxin, metoprolol Continues on Xarelto Continue to monitor on telemetry Follow-up with cardiology after discharge (3) Hyponatremia: Plan: With hypoosmolarity. Urine osmolality quite elevated in the 500s and 600s, urine sodium high at 101 Appears to be SIADH Does have heart failure but does not appear volume overloaded Continue home furosemide, spironolactone, Jardiance, Entresto Follow BMP-sodium fairly stable at 129 He has been off of his SSRI this admission-remain off (4) Acute on chronic HFrEF (heart failure with reduced ejection fraction): Plan: ECHO showed EF15-20% with severe dyskinesia. Cardiac cath done 02/03 showed no critical coronary stenosis. Continue Lasix, spironolactone, Entresto, Jardiance and Toprol-XL. Monitor I/O, daily weights, low-sodium diet (5) Aspiration pneumonia: Plan: CT scan of the chest showed evidence of possible aspiration pneumonia and he had a fever. He has completed his course of Zosyn therapy. Chest x-ray February 13 appears improved Sputum cultures and BAL growing Janiya which is likely a colonizer-no need for treatment Respiratory viral bio fire panel was negative (6) History of alcohol abuse: Plan: No evidence of alcohol withdrawal symptoms this admission. Supportive care Plan Uqxibitppsuv-vxld-tip prn miralax and senna qhs DVT prophylaxis-Xarelto Disposition-continue OT and PT. Stable for discharge to [facility] when bed is available-medically stable at this time Admission and Anticipated Discharge Date Admission Date: January 20, 2024 Subjective Pt reports feeling a little stronger today. He walked with PT and still felt SOB but less so than previously. Reports while he is moving his bowels, he feels like not enough is coming out, requests laxative Tele with NSR, PVCs, rates 70-80s Physical Exam Constitutional: + thin; no acute distress Neck: + abnormal visual inspection (Dressing i n place over tracheostomy site) Respiratory: normal respiratory effort; no cough Auscultation: + crackles (Right base); no rhonchi and no wheezes Cardiovascular: RRR, no murmur, no edema Gastrointestinal (Abdomen): normal bowel sounds, soft, nontender, no hepatosplenomegaly Psychiatric: A+Ox3, euthymic affect Results & Data Results & Data Vital Signs (Past 12 Hours) Vital Signs Temp Pulse Pulse Resp BP BP Pulse Ox 02/15/24 16:01 36.8 C 82 18 102/67 97 02/15/24 14:29 83 02/15/24 11:53 77 02/15/24 11:37 36.6 C 77 16 101/65 97 02/15/24 08:00 02/15/24 07:26 36.5 C 77 18 104/66 96 02/15/24 07:00 75 O2 Del Method 02/15/24 16:01 Room Air 02/15/24 14:29 02/15/24 11:53 02/15/24 11:37 Room Air 02/15/24 08:00 Room Air 02/15/24 07:26 Room Air 02/15/24 07:00 Laboratory Results CBC, BMP, magnesium, LFTs reviewed PG Care Time/CCT Total # of Minutes Spent Total Time Spent with Patient: Total time spent is greater than 50% in coordination of care (as documented) at patient's floor/unit and/or counseling patient: Coding Level of Care Code 52430 SUB INP/OBS CARE 2/35MIN Diagnoses Respiratory failure J96.90 Atrial fibrillation with rapid ventricular response I48.91 Hyponatremia E87.1 Acute on chronic HFrEF (heart failure with reduced ejection fraction) I50.23 Aspiration pneumonia J69.0 History of alcohol abuse F10.11
[2024-02-15] MEDS: SENNA 8.6 MG TAB PO SCH (21:05)
[2024-02-16 07:32] LABS: BUN Creatinine Ratio 27.7 (10-20); Calcium 9.3 mg/dl (8.6-10.3); Creatinine Clr Calc Pharmacy 87.4 ml/min; Potassium 4.6 mmol/L (3.5-5.1)
--- NOTE | 2024-02-16 15:52 | Hospitalist Progress Note ---
Date of Service February 16, 2024 Assessment & Plan (1) Respiratory failure: Plan: He presented with acute hypoxic respiratory failure requiring ventilator support after cardiac arrest. Was treated for aspiration pneumonia with Zosyn x 7 days Tracheostomy placed January 25 and subsequently removed on February 07. Oxygen has now been weaned off. He is on room air. Appreciate pulmonology consultation and recommendations. Chest x-ray on 02/13 with resolving pneumonia On diuretics for any pulm edema component as well (2) Atrial fibrillation with rapid ventricular response: Plan: Presented with rapid atrial fibrillation and received IV amiodarone, converted to normal sinus rhythm and then had PEA arrest-CPR was performed, given epinephrine x 3, bicarbonate, and he was transferred to ICU Unclear whether he suffered a seizure versus stroke after being given amiodarone and cardioverting, but CT head negative earlier this admission. Likely cardiac arrest from cardiogenic shock from poor cardiac output with severely low EF He then suffered acute kidney injury and shock liver both of which are now improved He was weaned off pressors but was on the vent for quite some time-had a tracheostomy placed and now removed He remains in normal sinus rhythm and is on amiodarone, digoxin, metoprolol Digoxin level acceptable on last check at 1.4 Continues on Xarelto-change to time administration with dinner rather than at bedtime Continue to monitor on telemetry Follow-up with cardiology after discharge (3) Hyponatremia: Plan: With hypoosmolarity. Urine osmolality quite elevated in the 500s and 600s, urine sodium high at 101 Appears to be SIADH Does have heart failure but does not appear volume overloaded Continue home furosemide, spironolactone, Jardiance, Entresto Follow BMP-sodium now improved to 131 (4) Acute on chronic HFrEF (heart failure with reduced ejection fraction): Plan: ECHO showed EF15-20% with severe dyskinesia. Cardiac cath done 02/03 showed no critical coronary stenosis. Continue Lasix, spironolactone, Entresto, Jardiance and Toprol-XL. Monitor I/O, daily weights, low-sodium diet (5) Aspiration pneumonia: Plan: CT scan of the chest showed evidence of possible aspiration pneumonia and he had a fever. He has completed his course of Zosyn therapy. Chest x-ray February 13 appears improved Sputum cultures and BAL growing Janiya which is likely a colonizer-no need for treatment Respiratory viral bio fire panel was negative (6) History of alcohol abuse: Plan: No evidence of alcohol withdrawal symptoms this admission. Supportive care Plan Vgubkmvkzpuy-zfsr-wad reoslved with prn miralax and senna qhs DVT prophylaxis-Xarelto Disposition-continue OT and PT. Stable for discharge to [facility] if auth approved--> auth denied and I have placed a call to perform peer to peer for reconsideration-medically stable at this time Admission and Anticipated Discharge Date Admission Date: January 20, 2024 Subjective Pt reports ongoing ELLIOTT but was able to ambulate 80 feet x 3 today with PT. Has some pain in left ribs in axillary line that improved with tylenol. Is moving bowels regularly now Tele with NSR PVCs, rates 70-80s Physical Exam Constitutional: + thin; no acute distress Neck: + abnormal visual inspection (Dressing i n place over tracheostomy site) Respiratory: normal respiratory effort; no cough Auscultation: no crackles, no rhonchi and no wheezes Cardiovascular: RRR, no murmur, no edema Gastrointestinal (Abdomen): normal bowel sounds, soft, nontender, no hepatosplenomegaly Psychiatric: A+Ox3, euthymic affect Results & Data Results & Data Vital Signs (Past 12 Hours) Vital Signs Temp Pulse Pulse Pulse Resp BP Pulse Ox 02/16/24 14:56 79 02/16/24 14:38 83 16 145/89 H 98 02/16/24 11:23 82 02/16/24 10:42 36.2 C L 82 16 111/68 97 02/16/24 08:00 78 02/16/24 07:38 36.5 C 80 16 120/71 96 O2 Del Method 02/16/24 14:56 02/16/24 14:38 Room Air 02/16/24 11:23 02/16/24 10:42 Room Air 02/16/24 08:00 02/16/24 07:38 Room Air Laboratory Results BMP, magnesium reviewed PG Care Time/CCT Total # of Minutes Spent Total Time Spent with Patient: Total time spent is greater than 50% in coordination of care (as documented) at patient's floor/unit and/or counseling patient: Coding Level of Care Code 93965 SUB INP/OBS CARE 2/35MIN Diagnoses Respiratory failure J96.90 Atrial fibrillation with rapid ventricular response I48.91 Hyponatremia E87.1 Acute on chronic HFrEF (heart failure with reduced ejection fraction) I50.23 Aspiration pneumonia J69.0 History of alcohol abuse F10.11
[2024-02-16] MEDS: RIVAROXABAN 20 MG TAB PO SCH (18:00)
[2024-02-17 06:26] LABS: BUN Creatinine Ratio 34.3 (10-20); Calcium 9.1 mg/dl (8.6-10.3); Creatinine Clr Calc Pharmacy 84.7 ml/min; Magnesium 1.9 mg/dl (1.7-2.4); Potassium 4.3 mmol/L (3.5-5.1)
--- NOTE | 2024-02-17 15:54 | Hospitalist Progress Note ---
Date of Service February 17, 2024 Assessment & Plan (1) Respiratory failure: Plan: He presented with acute hypoxic respiratory failure requiring ventilator support after cardiac arrest. Was treated for aspiration pneumonia with Zosyn x 7 days Tracheostomy placed January 25 and subsequently removed on February 07. Oxygen has now been weaned off. He is on room air. Appreciate pulmonology consultation and recommendations. Chest x-ray on 02/13 with resolving pneumonia On diuretics for any pulm edema component as well (2) Atrial fibrillation with rapid ventricular response: Plan: Presented with rapid atrial fibrillation and received IV amiodarone, converted to normal sinus rhythm and then had PEA arrest-CPR was performed, given epinephrine x 3, bicarbonate, and he was transferred to ICU Unclear whether he suffered a seizure versus stroke after being given amiodarone and cardioverting, but CT head negative earlier this admission. Likely cardiac arrest from cardiogenic shock from poor cardiac output with severely low EF He then suffered acute kidney injury and shock liver both of which are now improved He was weaned off pressors but was on the vent for quite some time-had a tracheostomy placed and now removed He remains in normal sinus rhythm and is on amiodarone, digoxin, metoprolol Digoxin level acceptable on last check at 1.4 Continues on Xarelto Continue to monitor on telemetry Follow-up with cardiology after discharge (3) Hyponatremia: Plan: With hypoosmolarity. Urine osmolality quite elevated in the 500s and 600s, urine sodium high at 101 Appears to be SIADH Does have heart failure but does not appear volume overloaded Continue home furosemide, spironolactone, Jardiance, Entresto Follow BMP-sodium now improved to 131 and remains stable (4) Acute on chronic HFrEF (heart failure with reduced ejection fraction): Plan: ECHO showed EF15-20% with severe dyskinesia. Cardiac cath done 02/03 showed no critical coronary stenosis. Continue Lasix, spironolactone, Entresto, Jardiance and Toprol-XL. Monitor I/O, daily weights, low-sodium diet FOllow BMP, Mag periodically and keep lytes optimal-give 1 gram IV magnesium today (5) Aspiration pneumonia: Plan: CT scan of the chest showed evidence of possible aspiration pneumonia and he had a fever. He has completed his course of Zosyn therapy. Chest x-ray February 13 appears improved Sputum cultures and BAL growing Janiya which is likely a colonizer-no need for treatment Respiratory viral bio fire panel was negative (6) History of alcohol abuse: Plan: No evidence of alcohol withdrawal symptoms this admission. Supportive care Plan Hybdjqxiydrq-nqgt-[id number] reoslved with prn miralax and senna qhs DVT prophylaxis-Xarelto Disposition-continue OT and PT. Denied acute rehab at [facility] even after peer to peer--> awaiting SNF bed Admission and Anticipated Discharge Date Admission Date: January 20, 2024 Subjective Pt reports still feeling ELLIOTT but each day is a little improved. Moving bowels, no other concerns Tele with NSR normal rates Physical Exam Constitutional: + thin; no acute distress Neck: + abnormal visual inspection (Dressing i n place over tracheostomy site) Respiratory: normal respiratory effort; no cough Auscultation: no crackles, no rhonchi and no wheezes Cardiovascular: RRR, no murmur, no edema Gastrointestinal (Abdomen): normal bowel sounds, soft, nontender, no hepatosplenomegaly Psychiatric: A+Ox3, euthymic affect Results & Data Results & Data Vital Signs (Past 12 Hours) Vital Signs Temp Pulse Pulse Resp BP Pulse Ox O2 Del Method 02/17/24 14:23 82 02/17/24 11:23 36.9 C 99 H 19 128/82 98 Room Air 02/17/24 09:47 82 02/17/24 09:24 88 02/17/24 07:21 36.5 C 86 18 152/82 H 95 Room Air 02/17/24 04:11 79 Laboratory Results BMP, magnesium reviewed PG Care Time/CCT Total # of Minutes Spent Total Time Spent with Patient: Total time spent is greater than 50% in coordination of care (as documented) at patient's floor/unit and/or counseling patient: Coding Level of Care Code 18362 SUB INP/OBS CARE 1/25MIN Diagnoses Respiratory failure J96.90 Atrial fibrillation with rapid ventricular response I48.91 Hyponatremia E87.1 Acute on chronic HFrEF (heart failure with reduced ejection fraction) I50.23 Aspiration pneumonia J69.0 History of alcohol abuse F10.11
[2024-02-17] MEDS: MAGNESIUM SULFATE / D5W 1 GM/100 ML BAG IV ONE (17:08)
--- NOTE | 2024-02-18 18:44 | Hospitalist Progress Note ---
Date of Service February 18, 2024 Assessment & Plan (1) Respiratory failure: Plan: He presented with acute hypoxic respiratory failure requiring ventilator support after cardiac arrest and with acute on chronic HFrEF. Was treated for aspiration pneumonia with Zosyn x 7 days Tracheostomy placed January 25 and subsequently removed on February 07. Oxygen has now been weaned off. He is on room air. Appreciate pulmonology consultation and recommendations. Chest x-ray on 02/13 with resolving pneumonia On diuretics for CHF component (2) Atrial fibrillation with rapid ventricular response: Plan: Presented with rapid atrial fibrillation and received IV amiodarone, converted to normal sinus rhythm and then had PEA arrest-CPR was performed, given epinephrine x 3, bicarbonate, and he was transferred to ICU Unclear whether he suffered a seizure versus stroke after being given amiodarone and cardioverting, but CT head negative earlier this admission and he is made a full recovery-no neurological issues. Likely PEA cardiac arrest from cardiogenic shock from poor cardiac output with severely low EF He then suffered acute kidney injury and shock liver both of which are now resolved He was weaned off pressors but was on the vent for quite some time-had a tracheostomy placed and now removed He has remained in normal sinus rhythm ever since for several weeks and no ventricular tachycardia-remains on amiodarone, digoxin, metoprolol Digoxin level acceptable on last check at 1.4 Continues on Xarelto Continue to monitor on telemetry Follow-up with cardiology after discharge will be paramount (3) Acute on chronic HFrEF (heart failure with reduced ejection fraction): Plan: ECHO showed EF15-20% with severe dyskinesia. Cardiac cath done 02/03 showed no critical coronary stenosis. He has been diuresed and is down quite a bit of weight since admission. Continues to have some heart failure symptoms even at rest at times Started Lasix, spironolactone, Jardiance, digoxin, and Toprol-XL while here (he was on carvedilol at home which has been stopped) He was already on Entresto at home and this has been continued Monitor I/O, daily weights, low-sodium diet, fluid restrict to 1500 mL-education given for home FOllow BMP, Mag periodically and keep lytes optimal Will make a referral to CHF clinic for after discharge for close follow-up (4) Hyponatremia: Plan: With hypoosmolarity. Urine osmolality quite elevated in the 500s and 600s, urine sodium high at 101 Appears to be SIADH Does have heart failure but does not appear volume overloaded Continue furosemide, spironolactone, Jardiance, Entresto Follow BMP-sodium now improved to 131 and remains stable (5) Aspiration pneumonia: Plan: CT scan of the chest showed evidence of possible aspiration pneumonia and he had a fever. He has completed his course of Zosyn therapy. Chest x-ray February 13 appears improved Sputum cultures and BAL growing Janiya which is likely a colonizer-no need for treatment Respiratory viral bio fire panel was negative (6) History of alcohol abuse: Plan: No evidence of alcohol withdrawal symptoms this admission. Supportive care He reports drinking 3-4 beers on most nights-counseled on complete cessation given severe heart failure and rapid atrial fibrillation Plan Rdckfsgqoipa-mjzr-gnm resolved with prn miralax and senna qhs DVT prophylaxis-Xarelto Disposition-continue OT and PT. Denied acute rehab at [facility] even after peer to peer--> now his insurance has denied longterm facility. Plan is for him to return home with home health, however he does not have a lot of support in the area and lives alone in an apartment. He no longer has a working car and he is no longer working at his job at [employer]. Case management discussed his care with his siblings and they will be available on Wednesday to help bring him home and get him his basic needs like food and medications and be able to help him get to appointments, etc. Plan for discharged home on Wednesday Admission and Anticipated Discharge Date Admission Date: January 20, 2024 Subjective Patient still feels dyspneic with exertion with walking to the bathroom and back and sometimes when he is chest lying back in the bed. Otherwise no complaints. He is disappointed that he has not been accepted at rehab by his insurance. Physical Exam Constitutional: + thin; no acute distress Neck: + abnormal visual inspection (Dressing i n place over tracheostomy site) Respiratory: normal respiratory effort; no cough Auscultation: no crackles, no rhonchi and no wheezes Cardiovascular: RRR, no murmur, no edema Gastrointestinal (Abdomen): normal bowel sounds, soft, nontender, no hepatosplenomegaly Psychiatric: A+Ox3, euthymic affect Results & Data Results & Data Vital Signs (Past 12 Hours) Vital Signs Temp Pulse Pulse Resp BP Pulse Ox O2 Del Method 02/18/24 16:00 97 H 02/18/24 15:43 36.6 C 83 18 122/75 97 Room Air 02/18/24 11:52 36.7 C 88 19 120/76 97 Room Air 02/18/24 10:12 85 02/18/24 08:59 36.5 C 85 18 130/79 97 Room Air 02/18/24 08:00 Room Air 02/18/24 08:00 82 Laboratory Results No labs PG Care Time/CCT Total # of Minutes Spent Total Time Spent with Patient: Total time spent is greater than 50% in coordination of care (as documented) at patient's floor/unit and/or counseling patient: Coding Level of Care Code 14899 SUB INP/OBS CARE 2/35MIN Diagnoses Respiratory failure J96.90 Atrial fibrillation with rapid ventricular response I48.91 Acute on chronic HFrEF (heart failure with reduced ejection fraction) I50.23 Hyponatremia E87.1 Aspiration pneumonia J69.0 History of alcohol abuse F10.11
[2024-02-19 05:56] LABS: Basophils # (auto) 0.14 K/uL (0.00-0.20); Basophils % (auto) 1.6 %; Eosinophils # (auto) 0.36 K/uL (0.00-0.50); Eosinophils % (auto) 4.1 %; Hematocrit (blood only) 43.6 % (42.0-52.0); Hemoglobin 14.7 g/dl (14.0-18.0); Immature Granulocytes # (auto) 0.06 K/uL (0.01-0.20); Immature Granulocytes % (auto) 0.7 %; Lymphocytes # (auto) 2.65 K/uL (1.20-3.40); Lymphocytes % (auto) 29.8 %; Mean Corpuscular Hemoglobin 32.5 pg (25.0-34.0); Mean Corpuscular Hgb Conc 33.7 g/dL (32.0-36.0); Mean Corpuscular Volume 96.2 fL (80.0-100.0); Mean Platelet Volume 8.6 fL (9.4-12.4); Monocytes % (auto) 13.5 %; Neutrophils # (auto) 4.47 K/uL (1.40-6.50); Neutrophils % (auto) 50.3 %; Platelet Count 350 K/uL (130-400); RDW Coefficient of Variation 12.5 % (11.5-14.5); RDW Standard Deviation 44.6 fL (36.4-46.3); Red Blood Count 4.53 M/uL (4.70-6.10); White Blood Count 8.88 K/ul (4.8-10.8)
[2024-02-19 06:14] LABS: Albumin Level 3.6 gm/dl (3.4-5.0); BUN Creatinine Ratio 21.4 (10-20); Bilirubin Direct 0.3 mg/dl (0-0.2); Bilirubin,Total 0.7 mg/dl (0.2-1.0); Calcium 9.1 mg/dl (8.6-10.3); Creatinine Clr Calc Pharmacy 82.2 ml/min; Magnesium 1.9 mg/dl (1.7-2.4); Potassium 4.3 mmol/L (3.5-5.1); Total Protein 6.7 gm/dl (6.0-8.3)
--- NOTE | 2024-02-19 16:40 | Hospitalist Progress Note ---
Date of Service February 19, 2024 Assessment & Plan (1) Respiratory failure: Plan: He presented with acute hypoxic respiratory failure requiring ventilator support after cardiac arrest and with acute on chronic HFrEF. Was treated for aspiration pneumonia with Zosyn x 7 days Tracheostomy placed January 25 and subsequently removed on February 07. Oxygen has now been weaned off. He is on room air. Appreciate pulmonology consultation and recommendations. Chest x-ray on 02/13 with resolving pneumonia On diuretics for CHF component (2) Atrial fibrillation with rapid ventricular response: Plan: Presented with rapid atrial fibrillation and received IV amiodarone, converted to normal sinus rhythm and then had PEA arrest-CPR was performed, given epinephrine x 3, bicarbonate, and he was transferred to ICU Unclear whether he suffered a seizure versus stroke after being given amiodarone and cardioverting, but CT head negative earlier this admission and he is made a full recovery-no neurological issues. Likely PEA cardiac arrest from cardiogenic shock from poor cardiac output with severely low EF He then suffered acute kidney injury and shock liver both of which are now resolved He was weaned off pressors but was on the vent for quite some time-had a tracheostomy placed and now removed He has remained in normal sinus rhythm ever since for several weeks and no ventricular tachycardia-remains on amiodarone, digoxin, metoprolol Digoxin level acceptable on last check at 1.4 Continues on Xarelto Continue to monitor on telemetry Follow-up with cardiology after discharge will be paramount (3) Acute on chronic HFrEF (heart failure with reduced ejection fraction): Plan: ECHO showed EF15-20% with severe dyskinesia. Cardiac cath done 02/03 showed no critical coronary stenosis. He has been diuresed and is down quite a bit of weight since admission. Continues to have some heart failure symptoms even at rest at times Appears to be euvolemic at this point. Started Lasix, spironolactone, Jardiance, digoxin, and Toprol-XL while here (he was on carvedilol at home which has been stopped) He was already on Entresto at home and this has been continued Monitor I/O, daily weights, low-sodium diet, fluid restrict to 1500 mL-education given for home FOllow BMP, Mag periodically and keep lytes optimal Will make a referral to CHF clinic for after discharge for close follow-up (4) Hyponatremia: Plan: With hypoosmolarity. Urine osmolality quite elevated in the 500s and 600s, urine sodium high at 101 Appears to be SIADH Does have heart failure but does not appear volume overloaded Continue furosemide, spironolactone, Jardiance, Entresto Follow BMP-sodium now improved to 131 and remains stable (5) Aspiration pneumonia: Plan: CT scan of the chest showed evidence of possible aspiration pneumonia and he had a fever. He has completed his course of Zosyn therapy. Chest x-ray February 13 appears improved Sputum cultures and BAL growing Janiya which is likely a colonizer-no need for treatment Respiratory viral bio fire panel was negative (6) History of alcohol abuse: Plan: No evidence of alcohol withdrawal symptoms this admission. Supportive care He reports drinking 3-4 beers on most nights-counseled on complete cessation given severe heart failure and rapid atrial fibrillation Plan [id number] resolved with prn miralax and senna qhs DVT prophylaxis-Xarelto Disposition-continue OT and PT. Denied acute rehab at [facility] even after peer to peer--> now his insurance has denied intermediate facility. Plan is for him to return home with home health, however he does not have a lot of support in the area and lives alone in an apartment. He no longer has a working car and he is no longer working at his job at [employer]. Case management discussed his care with his siblings and they will be available on Wednesday to help bring him home and get him his basic needs like food and medications and be able to help him get to appointments, etc. Plan for discharged home on Wednesday Admission and Anticipated Discharge Date Admission Date: January 20, 2024 Subjective Patient feels well overall. He denies chest pain or shortness of breath. No new symptoms or complaints. Review of Systems Review of Systems: All systems reviewed & are unremarkable except as noted in Subjective Physical Exam Physical Exam: General: Awake, conversant Heart: S1, S2/regular rate and rhythm, no murmur rubs or gallops Lungs: Clear to auscultation bilaterally. Normal effort Abdomen: Soft/nontender/nondistended. No hepatosplenomegaly Extremities: No clubbing/cyanosis. No edema Behavior: Appropriate, cooperative Results & Data Results & Data Vital Signs (Past 12 Hours) Vital Signs Temp Pulse Pulse Resp BP BP Pulse Ox 02/19/24 16:00 36.9 C 90 17 105/70 96 02/19/24 11:05 36.7 C 99 H 17 99/68 L 97 02/19/24 09:42 84 02/19/24 08:00 02/19/24 08:00 84 02/19/24 07:26 37.1 C 79 16 129/79 99 02/19/24 06:42 83 O2 Del Method 02/19/24 16:00 Room Air 02/19/24 11:05 Room Air 02/19/24 09:42 02/19/24 08:00 Room Air 02/19/24 08:00 02/19/24 07:26 Room Air 02/19/24 06:42 Laboratory Results Abnormal lab results 02/19/24 Range/Units 05:31 RBC 4.53 L (4.70-6.10) M/uL MPV 8.6 L (9.4-12.4) fL [place] # (Auto) 1.20 H (0.11-0.59) K/uL Sodium 132 L (136-145) mmol/L Chloride 96 L (98-107) mmol/L BUN/Creatinine Ratio 21.4 H (10-20) Glucose 104 H (70-99(Fasting)) mg/dl Direct Bilirubin 0.3 H (0-0.2) mg/dl Alkaline Phosphatase 123 H (34-104) U/L PG Care Time/CCT Total # of Minutes Spent Total Time Spent with Patient: Total time spent is greater than 50% in coordination of care (as documented) at patient's floor/unit and/or counseling patient: Coding Level of Care Code 71463 SUB INP/OBS CARE 2/35MIN Diagnoses Respiratory failure J96.90 Atrial fibrillation with rapid ventricular response I48.91 Acute on chronic HFrEF (heart failure with reduced ejection fraction) I50.23 Hyponatremia E87.1 Aspiration pneumonia J69.0 History of alcohol abuse F10.11
--- NOTE | 2024-02-20 16:28 | Hospitalist Progress Note ---
Date of Service February 20, 2024 Assessment & Plan (1) Respiratory failure: Plan: He presented with acute hypoxic respiratory failure requiring ventilator support after cardiac arrest and with acute on chronic HFrEF. Was treated for aspiration pneumonia with Zosyn x 7 days Tracheostomy placed January 25 and subsequently removed on February 07. Oxygen has now been weaned off. He is on room air. Appreciate pulmonology consultation and recommendations. Chest x-ray on 02/13 with resolving pneumonia On diuretics for CHF component (2) Atrial fibrillation with rapid ventricular response: Plan: Presented with rapid atrial fibrillation and received IV amiodarone, converted to normal sinus rhythm and then had PEA arrest-CPR was performed, given epinephrine x 3, bicarbonate, and he was transferred to ICU Unclear whether he suffered a seizure versus stroke after being given amiodarone and cardioverting, but CT head negative earlier this admission and he is made a full recovery-no neurological issues. Likely PEA cardiac arrest from cardiogenic shock from poor cardiac output with severely low EF He then suffered acute kidney injury and shock liver both of which are now resolved He was weaned off pressors but was on the vent for quite some time-had a tracheostomy placed and now removed He has remained in normal sinus rhythm ever since for several weeks and no ventricular tachycardia-remains on amiodarone, digoxin, metoprolol Digoxin level acceptable on last check at 1.4 Continues on Xarelto Continue to monitor on telemetry Follow-up with cardiology after discharge will be paramount (3) Acute on chronic HFrEF (heart failure with reduced ejection fraction): Plan: ECHO showed EF15-20% with severe dyskinesia. Cardiac cath done 02/03 showed no critical coronary stenosis. He has been diuresed and is down quite a bit of weight since admission. Continues to have some heart failure symptoms even at rest at times Appears to be euvolemic at this point. Started Lasix, spironolactone, Jardiance, digoxin, and Toprol-XL while here (he was on carvedilol at home which has been stopped) He was already on Entresto at home and this has been continued Monitor I/O, daily weights, low-sodium diet, fluid restrict to 1500 mL-education given for home FOllow BMP, Mag periodically and keep lytes optimal Will make a referral to CHF clinic for after discharge for close follow-up (4) Hyponatremia: Plan: With hypoosmolarity. Urine osmolality quite elevated in the 500s and 600s, urine sodium high at 101 Appears to be SIADH Does have heart failure but does not appear volume overloaded Continue furosemide, spironolactone, Jardiance, Entresto Follow BMP-sodium now improved to 132 and remains stable (5) Aspiration pneumonia: Plan: CT scan of the chest showed evidence of possible aspiration pneumonia and he had a fever. He has completed his course of Zosyn therapy. Chest x-ray February 13 appears improved Sputum cultures and BAL growing Janiya which is likely a colonizer-no need for treatment Respiratory viral bio fire panel was negative (6) History of alcohol abuse: Plan: No evidence of alcohol withdrawal symptoms this admission. Supportive care He reports drinking 3-4 beers on most nights-counseled on complete cessation given severe heart failure and rapid atrial fibrillation Plan [id number]-cuiu-[id number] resolved with prn miralax and senna qhs DVT prophylaxis-Xarelto Disposition-continue OT and PT. Denied acute rehab at [facility] even after peer to peer--> now his insurance has denied usp facility. Plan is for him to return home with home health, however he does not have a lot of support in the area and lives alone in an apartment. He no longer has a working car and he is no longer working at his job at [employer]. Case management discussed his care with his siblings and they will be available on Wednesday to help bring him home and get him his basic needs like food and medications and be able to help him get to appointments, etc. Plan for discharged home on Wednesday Admission and Anticipated Discharge Date Admission Date: January 20, 2024 Subjective Patient was seen and examined at 9:50 AM. Patient says he feels well. He is ready to go home tomorrow. He denies any chest pain or shortness of breath Review of Systems Review of Systems: All systems reviewed & are unremarkable except as noted in Subjective Physical Exam Physical Exam: General: Awake, conversant Heart: S1, S2/regular rate and rhythm, no murmur rubs or gallops Lungs: Clear to auscultation bilaterally. Normal effort Abdomen: Soft/nontender/nondistended. No hepatosplenomegaly Extremities: No clubbing/cyanosis. No edema Behavior: Appropriate, cooperative Results & Data Results & Data Vital Signs (Past 12 Hours) Vital Signs Temp Pulse Pulse Resp BP Pulse Ox O2 Del Method 02/20/24 15:25 36.8 C 88 18 112/75 98 Room Air 02/20/24 11:27 36.5 C 84 18 106/67 97 Room Air 02/20/24 10:47 82 02/20/24 08:00 Room Air 02/20/24 08:00 79 02/20/24 07:40 36.6 C 79 18 115/75 97 Room Air PG Care Time/CCT Total # of Minutes Spent Total Time Spent with Patient: Total time spent is greater than 50% in coordination of care (as documented) at patient's floor/unit and/or counseling patient: Coding Level of Care Code 42763 SUB INP/OBS CARE 2/35MIN Diagnoses Respiratory failure J96.90 Atrial fibrillation with rapid ventricular response I48.91 Acute on chronic HFrEF (heart failure with reduced ejection fraction) I50.23 Hyponatremia E87.1 Aspiration pneumonia J69.0 History of alcohol abuse F10.11
[2024-02-21 03:46] VITALS: O2SAT 97
[2024-02-21 11:42] VITALS: RESP 17; TEMP 98.1
--- NOTE | 2024-02-21 13:30 | Discharge Summary ---
Date of Service February 21, 2024 Admission HPI Per Admitting Provider The patient is a 58-year-old male with a past medical history including atrial fibrillation, chronic HFrEF, paroxysmal atrial fibrillation with RVR, nonischemic cardiomyopathy, hypertension, NSTEMI, allergic rhinitis and chronic anticoagulation. The patient reports that he ran out of all his medications about 2 months ago due to not being able to afford them, has not been eating much also being not able to afford food, and needs to work on getting food stamps again. He presents to the emergency department with 2 days of persistent elevated heart rate, but EKG in emergency department showing atrial flutter with RVR at 165 bpm. He was given Lopressor 5 mg IV x 2 with no significant change in heart rate. I have advised given magnesium sulfate 2 g IV for a mag level of 1.7, and a trial digoxin 0.25 IV now, due to systolic blood pressure in the low 100s, and heart rate 140-160. Admission Exam Per Admitting Provider The patient is awake, alert and oriented 3, well developed and well nourished, normocephalic and atraumatic, lying in bed and in no acute distress. HEENT--PERRL, EOMI, mucous membranes and oropharynx dry. Neck--supple. No JVD. No bruits. Thyroid normal, trachea midline, no adenopathy. Heart--tachycardic with premature contractions. No murmurs, rubs or gallops. Lungs--decreased breath sounds throughout. No respiratory distress, no accessory muscle use. Abdomen--normal bowel sounds and soft. Nontender. Nondistended, no hernias or masses, no organomegaly. Extremities--no cyanosis or clubbing. No edema. Dermatologic--normal skin turgor, normal color, no abnormal lymph nodes, no rash. Neurologic--cranial nerves II through XII grossly intact. Rheumatologic--normal range of motion. Psychiatric--normal affect. Principal Diagnosis Acute hypoxic respiratory failure after cardiac arrest Acute on chronic systolic CHF with EF of 15% Atrial fibrillation with rapid ventricular response Nonischemic cardiomyopathy Hyponatremia Aspiration pneumonia History of alcohol abuse Discharge Exam General: Awake, conversant Heart: S1, S2/regular rate and rhythm, no murmur rubs or gallops Lungs: Clear to auscultation bilaterally. Normal effort Abdomen: Soft/nontender/nondistended. No hepatosplenomegaly Extremities: No clubbing/cyanosis. No edema Behavior: Appropriate, cooperative Discharge Data Allergies Allergy/AdvReac Type Severity Reaction Status Date / Time No Known Allergies Allergy Unverified 08/10/23 15:40 Consultations 01/20/24 06:06 ED Decision to Admit Stat 01/20/24 08:50 Consult Cardiology Routine 01/31/24 16:26 Consult Palliative Care Routine 02/01/24 12:20 Consult Nephrology Routine 02/01/24 21:46 Consult Cardiology Routine 02/18/24 20:47 [facility] CHF Program Referral Routine Procedures Performed Operation Date: 02/04/24 13:00 Actual Procedures p Cineradiography w/Routine Exam - Qamar Martinez MD s Cath, Right and Left Heart - Qamar Martinez MD Ordered Studies 01/20/24 09:07 CT head/brain wo con Stat 01/20/24 09:15 CT chest diagnostic wo con Stat 01/20/24 09:33 sono, invasive monitoring [US point of care ultrasound] Urgent 02/03/24 06:50 CL Cath Imgs for PACS use only Routine Hospital Course (1) Respiratory failure: He presented with acute hypoxic respiratory failure requiring ventilator support after cardiac arrest and with acute on chronic HFrEF. Was treated for aspiration pneumonia with Zosyn x 7 days Tracheostomy placed January 25 and subsequently removed on February 07. Oxygen has now been weaned off. He is on room air. Appreciate pulmonology consultation and recommendations. Chest x-ray on 02/13 with resolving pneumonia On diuretics for CHF component (2) Atrial fibrillation with rapid ventricular response: Presented with rapid atrial fibrillation and received IV amiodarone, converted to normal sinus rhythm and then had PEA arrest-CPR was performed, given epinephrine x 3, bicarbonate, and he was transferred to ICU Unclear whether he suffered a seizure versus stroke after being given amiodarone and cardioverting, but CT head negative earlier this admission and he is made a full recovery-no neurological issues. Likely PEA cardiac arrest from cardiogenic shock from poor cardiac output with severely low EF He then suffered acute kidney injury and shock liver both of which are now resolved He was weaned off pressors but was on the vent for quite some time-had a tracheostomy placed and now removed He has remained in normal sinus rhythm ever since for several weeks and no ventricular tachycardia-remains on amiodarone, digoxin, metoprolol Digoxin level acceptable on last check at 1.4 Continues on Xarelto Continue to monitor on telemetry Follow-up with cardiology after discharge will be paramount (3) Acute on chronic HFrEF (heart failure with reduced ejection fraction): ECHO showed EF15-20% with severe dyskinesia. Cardiac cath done 02/03 showed no critical coronary stenosis. He has been diuresed and is down quite a bit of weight since admission. Continu es to have some heart failure symptoms even at rest at times Appears to be euvolemic at this point. Started Lasix, spironolactone, Jardiance, digoxin, and Toprol-XL while here (he was on carvedilol at home which has been stopped) He was already on Entresto at home and this has been continued Monitor I/O, daily weights, low-sodium diet, fluid restrict to 1500 mL-education given for home FOllow BMP, Mag periodically and keep lytes optimal Will make a referral to CHF clinic for after discharge for close follow-up (4) Hyponatremia: With hypoosmolarity. 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 He has completed his course of Zosyn therapy. Chest x-ray February 13 appears improved Sputum cultures and BAL growing Janiya which is likely a colonizer-no need for treatment Respiratory viral bio fire panel was negative (6) History of alcohol abuse: No evidence of alcohol withdrawal symptoms this admission. Supportive care He reports drinking 3-4 beers on most nights-counseled on complete cessation given severe heart failure and rapid atrial fibrillation Plan Disposition-continue OT and PT. Denied acute rehab at [facility] even after peer to peer--> now his insurance has denied fdc facility. Plan is for him to return home with home health, however he does not have a lot of support in the area and lives alone in an apartment. He no longer has a working car and he is no longer working at his job at [employer]. Case management discussed his care with his siblings and they will be available today to help bring him home and get him his basic needs like food and medications and be able to help him get to appointments, etc. Plan for discharge to home today Total Time Total Time Spent Total Time Spent (In Minutes): 35 Discharge Plan Discharge Items Patient Disposition: Home - Home Health Services Reason For Visit: ATRIAL FLUTTER WITH RVR Discharge Diagnosis: Acute hypoxic respiratory failure after cardiac arrest Acute on chronic systolic CHF with EF of 15% Atrial fibrillation with rapid ventricular response Nonischemic cardiomyopathy Hyponatremia Aspiration pneumonia History of alcohol abuse Condition on Discharge: Fair Activity: As commented below Activity Comment: Per home PT/OT recommendations Non-emergency contact: Primary Care Provider Call non-emergency contact if: you have any medication questions and your symptoms worsen Follow-up/Referrals: Ayush Truong PA-C [Physician Learning Developer] - 03/07/24 11:30 am Manolo Latif MD [Primary Care Provider] - 02/29/24 3:40 pm (Hospital follow up appointment) Chey Orellana PA-C [Physician Learning Developer] - (Office will reach out to schedule) Diet: Low Sodium (2gm) Fluids: 1500ml (6 cups) Addtl Attending Provider Instructions: Advised to follow-up with PCP in 1 week Advised to follow-up with cardiology in 2 weeks Advised to follow-up with CHF clinic in 1 week Pending Studies at Discharge: No Stand-Alone Forms: My [facility] Medications and DC Order Prescriptions: New amiodarone 200 mg Tablet 200 mg PO QAM 30 Days Qty: 30 0RF digoxin 250 mcg (0.25 mg) Tablet 0.25 mg PO DAILY@1000 30 Days Qty: 30 0RF metoprolol succinate 50 mg Tablet Extended Release 24 Hr 50 mg PO QAM 30 Days Qty: 30 0RF spironolactone 25 mg Tablet 25 mg PO QAM 30 Days Qty: 30 0RF furosemide 40 mg Tablet 40 mg PO QAM 30 Days Qty: 30 0RF lansoprazole [Prevacid SoluTab] 30 mg Tablet,Disintegrat, Delay Rel 30 mg PO DAILY 30 Days Qty: 30 0RF magnesium oxide 400 mg (241.3 mg magnesium) Tablet 400 mg PO DAILY 30 Days Qty: 30 0RF Jardiance 10 mg Tablet 10 mg PO DAILY 30 Days Qty: 30 0RF Continued azelastine 137 mcg (0.1 %) aerosol,spray 1 spray intranasal BID Rx Instructions: administer into each nostril Xarelto 20 mg tablet 0 mg PO DAILY Rx Instructions: Last filled 07/2023 x90 day supply. Original Directions: 20mg by mouth daily Entresto 24-26 mg tablet 0 tab PO BID Rx Instructions: Last filled 09/2023 x30 day supply. Original Directions: 1 tablet by mouth twice daily Discontinued carvedilol 25 mg tablet 0 mg PO BID Rx Instructions: Last filled 07/2023 x90 day supply. Original Directions: 25mg by mouth twice daily furosemide 20 mg tablet 0 mg PO BID Rx Instructions: Last filled 07/2023 x90 day supply. Original Directions: 20mg by mouth twice daily Discharge Orders: Discharge Order- CHF (Routine); Ordered 02/21/24 Ordered By: Thomas Ibarra Admission Data Admit Date/Time: 01/20/24 06:40 Attending Provider: Thomas Ibarra Admit Provider: Ba Britton Primary Care Provider: Manolo Latif Other Providers: Jonathon Castillo Jr; [facility]; Ba Britton; F Kia zuniga; Claire Kaur; Ayush Truong; Kolby Reardon; Pranay Lyons; Bhupendra Gonsalez; Venkat Billingsley; Lan Pinon; Pushpa Lacey; Thuy Berg; Qamar Martinez; Qamar Bal; Singh Kelly; Chey Orellana; Manpreet Hernandez; Sita Torres; Alfonso German.; Derrick Shafer; Tacho Moore; [facility] [place]; [facility],; [facility]
[2024-02-21 13:46] VITALS: BP 112/73; PULSE 83
== END 2024-02-21 14:33 | disposition home health service (06) | DRG 4 ==
LOC: SUATTDRO → ED 05:04 → EDINP 06:40 → SUATTDRO 06:40 → 1E 08:51 → 4W 02-09 18:38